=== PATIENT | female | born 1940 | race Caucasian/White ===

== ENCOUNTER 2016-03-23 17:30 | Inpatient (IN) | payer MEDICARE, OTHER ==
[~2016-03-23] VITALS: Ht 309.9 cm; Wt 48.0 kg
[~2016-03-23 17:30] MED LIST: ASPI-664 PO; CHOL500010 PO; CILO100T PO; CRES10 PO; ESCI10TA48 PO; ESOM40CA PO; FERR324T4 PO; HYDR100T7 PO; LEVO88TA44 PO; POLY17PO6 PO; RPGL.5T PO; SEVE800T7 PO; TERA2CAP PO
--- NOTE | 2016-03-23 18:33 | ERA ---
ER Documentation Chief Complaint Date/Time DATE: 03/23/16 TIME: 18:28 Chief Complaint HPI Patient is a 75-year-old female who was transferred here because of anemia that was found on routine lab work at the rehab facility. According to her outpatient physician she also had a chest x-ray that was done yesterday that demonstrated pneumonia. The patient herself does not have any current complaints. According to the physician she has chronic anemia which has slowly worsened. It is unclear why the patient has this chronic anemia according to her records. The patient does not have any chest pain, shortness of breath, dizziness, loss of consciousness, hematemesis, melena, or hematochezia. She denies any abdominal pain, vomiting, fever, coughing, congestion, rhinorrhea, sore throat, or otalgia. In the remainder of the systems are negative. ROS All systems reviewed and are negative except as per history of present illness. Medications Home Meds Reported Medications Aspirin* (Aspirin* EC) 81 Mg Tablet.dr, 81 MG PO DAILY, TAB 01/18/16 Discontinued Reported Medications Cholecalciferol (Vitamin D3) 5,000 Unit Tablet, 5000 UNIT PO DAILY, TAB 01/18/16 Sevelamer Carbonate* (Renvela*) 800 Mg Tablet, 0.8 GM PO WITH MEALS, TAB TAKE 1 TAB BID, FOR 1DAY 01/18/16 Polyethylene Glycol* (Miralax*) 17 Gm Powd.pack, 8.5 GM PO DAILY, #30 PACKET 01/18/16 Terazosin Hcl* (Terazosin Hcl*) 2 Mg Capsule, 2 MG PO DAILY, CAP 01/18/16 Hydralazine Hcl* (Hydralazine Hcl*) 100 Mg Tablet, 100 MG PO TID, #90 TAB 01/18/16 Esomeprazole Mag Trihydrate (Nexium) 40 Mg Capsule.dr, 40 MG PO DAILY, #30 CAP 01/18/16 Ferrous Sulfate (Ferrous Sulfate) 324 Mg Tablet.dr, 324 MG PO TID 01/18/16 Rosuvastatin Calcium* (Crestor*) 10 Mg Tablet, 10 MG PO DAILY, #30 TAB 01/18/16 Levothyroxine Sodium* (Synthroid*) 88 Mcg Tablet, 88 MCG PO BEFORE BREAKFAST, # 30 TAB 01/18/16 Escitalopram Oxalate* (Escitalopram Oxalate*) 10 Mg Tablet, 10 MG PO DAILY, #30 TAB 01/18/16 Repaglinide* (Prandin*) 0.5 Mg Tablet, 0.5 MG PO AC MEALS, TAB 01/18/16 Discontinued Scripts Cilostazol* (Cilostazol*) 100 Mg Tablet, 50 MG PO BID for 30 Days, TAB Prov:JESSIE SUMNER [employer] 02/23/16 Allergies Allergies: Coded Allergies: No Known Allergy (Verified , 03/23/16) PMhx/Soc History of Surgery: Yes (CABG) Anesthesia Reaction: No Hx Neurological Disorder: No Hx Respiratory Disorders: No Hx Cardiac Disorders: Yes (s/p CABG 15 yrs, bradycardia, HTN) Hx Psychiatric Problems: No Hx Miscellaneous Medical Probl: Yes (iron def anemia, AKD,CAD,hypothyroidism, jose,DM, htn,) Hx Alcohol Use: No Hx Substance Use: Yes Hx Tobacco Use: No FmHx Family History: coronary disease Physical Exam Vitals Vital Signs Date Time Temp Pulse Resp B/P Pulse Ox O2 Delivery O2 Flow Rate FiO2 03/23/16 18:40 99.3 92 12 138/62 99 Physical Exam Const: Well-developed well-nourished female sitting on the bed in no acute distress. She is notably pale. Head: Atraumatic normocephalic Eyes: Pale Conjunctiva ENT: Normal External Ears, Nose and Mouth. Neck: Full range of motion..~ No meningismus. Resp: Clear to auscultation bilaterally Cardio: Regular rate and rhythm, 3/6 systolic ejection murmur Abd: Soft, non tender, non distended. Normal bowel sounds Skin: No petechiae or rashes Back: No midline or flank tenderness Ext: No cyanosis, or edema Neur: Awake and alert, GCS equals 15 grossly nonfocal Psych: Normal Mood and Affect Result Diagram: 03/23/16 18503/23/16 185 Results 24 hrs Laboratory Tests Test 03/23/16 18:51 Activated Partial Thromboplast Time Pending Alanine Aminotransferase (ALT/SGPT) 30IU/L Albumin 3.5g/dl Albumin/Globulin Ratio 1.09 Alkaline Phosphatase 88IU/L Anion Gap 17 Aspartate Amino Transf (AST/SGOT) 27IU/L Basophils # Pending Basophils % Pending Blood Morphology Comment Blood Urea Nitrogen 37mg/dl Calcium Level 8.6mg/dl Carbon Dioxide Level 27mmol/L Chloride Level 99mmol/L Creatinine 2.25mg/dl Direct Bilirubin 0.00mg/dl Eosinophils # Pending Eosinophils % Pending Globulin 3.20g/dl Glucose Level 72mg/dl Hematocrit 22.5% Hemoglobin 7.6g/dl INR International Normalized Ratio 0.89 Indirect Bilirubin 0.1mg/dl Lymphocytes # Pending Lymphocytes % Pending Mean Corpuscular Hemoglobin 29.9pg Mean Corpuscular Hemoglobin Concent 33.7g/dl Mean Corpuscular Volume 88.6fl Mean Platelet Volume 6.7fl Monocytes # Pending Monocytes % Pending Neutrophils # Pending Neutrophils % Pending Nucleated Red Blood Cells # Pending Nucleated Red Blood Cells % Pending Platelet Count 07674^3/UL Potassium Level 3.8mmol/L Prothrombin Time 12.0Sec Prothrombin Time Ratio 0.9 Red Blood Count 2.5410^6/ul Red Cell Distribution Width 15.8% Sodium Level 139mmol/L Total Bilirubin 0.1mg/dl Total Protein 6.7g/dl Troponin I Pending White Blood Count 4.110^3/ul Current Medications Medications (Trade) Dose Ordered Sig/Jostin Route PRN Reason Start Time Stop Time Status Last Admin Dose Admin Sodium Chloride (NS) 250 ml @ 0 mls/hr Q0M ONCE IV 03/23/16 19:13 03/23/16 19:17 DC Procedures/MDM Medical decision making: This is a 75-year-old female who presents with known anemia. She is requiring a blood transfusion. The physician reports that she also has pneumonia. Given the pneumonia and need for blood transfusion I will attempt to get in touch with Dr. Johns who is the physician that was requested for admission and see if we can expedite her admission to the hospital. Departure Diagnosis: Primary Impression: Anemia Qualified Code: D64.9 - Anemia, unspecified type Additional Impressions: Pneumonia Qualified Code: J18.9 - Pneumonia due to infectious organism, unspecified laterality, unspecified part of lung Chronic kidney disease, stage III (moderate) Acute weakness ERVIN PEDERSEN Mar 23, 2016 18:33
[2016-03-23 19:10] LABS: ALBUMIN 3.5 g/dl (3.3-4.9)
[2016-03-23 19:11] LABS: POTASSIUM 3.8 mmol/L (3.5-5.1)
[2016-03-23 19:13] LABS: ALBUMIN/GLOBULIN RATIO 1.09; BILIRUBIN,INDIRECT 0.1 mg/dl (0-1.1); BILIRUBIN,TOTAL 0.1 mg/dl (0.2-1.3); CREATININE 2.25 mg/dl (0.44-1.00); TOTAL PROTEIN 6.7 g/dl (6.1-8.1)
[2016-03-23] MEDS ORDERED: SOD CHLORIDE 0.9% 250 ML IV ONE (19:13)
[2016-03-23 19:14] LABS: CALCIUM 8.6 mg/dl (8.4-10.2)
[2016-03-23 19:15] LABS: BASOPHILS % 0.5 % (0.0-2.0); EOSINOPHILS # 0.1 10^3/ul (0.0-0.5); EOSINOPHILS % 3.1 % (0.0-7.0); HEMATOCRIT 22.5 % (37.0-47.0); HEMOGLOBIN 7.6 g/dl (12.0-16.0); LYMPHOCYTES # 1.5 10^3/ul (0.8-2.9); LYMPHOCYTES % 35.7 % (15.0-51.0); MEAN CORPUSCULAR HEMOGLOBIN 29.9 pg (29.0-33.0); MEAN CORPUSCULAR HGB CONC 33.7 g/dl (32.0-37.0); MEAN CORPUSCULAR VOLUME 88.6 fl (82.0-101.0); MEAN PLATELET VOLUME 6.7 fl (7.4-10.4); MONOCYTE # 0.4 10^3/ul (0.3-0.9); MONOCYTES % 9.2 % (0.0-11.0); NEUTROPHIL # 2.1 10^3/ul (1.6-7.5); NEUTROPHILS % 51.5 % (39.0-77.0); PLATELET COUNT 143 10^3/UL (140-440); RED BLOOD COUNT 2.54 10^6/ul (4.20-5.40); RED CELL DISTRIBUTION WIDTH 15.8 % (11.5-14.5); UNCORRECTED WBC 4.1 10^3/ul (4.8-10.8); WHITE BLOOD COUNT 4.1 10^3/ul (4.8-10.8)
[2016-03-23 19:17] LABS: CONDITION 1; LH ANALYZER COMMENTS 1
--- NOTE | 2016-03-23 19:21 | RADRPT ---
PROCEDURE: Chest x-ray CLINICAL INDICATION: Shortness of breath TECHNIQUE: Chest single view COMPARISON: 02/14/2016 FINDINGS: There is interval placement of right IJ dialysis catheter with tip at the right atrial SVC junction. No pneumothorax is seen. Stable mild cardiomegaly and atherosclerotic aortic calcification is see n. There is post CABG changes. The pulmonary vessels are normal in caliber. Lungs are clear. Cos tophrenic angles are sharp. Bony thorax is unremarkable. IMPRESSION: 1. Interval placement right IJ dialysis catheter. 2. Stable cardiomegaly and an sclerotic aortic calcification. 3. No CHF or pneumonia. 4. Status post CABG RPTAT: HH .Piotr Grimes MD, MD Date Time Electronically viewed and signed by .Piotr Grimes MD, on 03/23/2016 19:21 .W/
[2016-03-23 19:22] LABS: INR 0.89; PT RATIO 0.9
[2016-03-23 19:23] LABS: PARTIAL THROMBOPLASTIN TIME 30.6 Sec (25.0-35.0)
[2016-03-23] MEDS ORDERED: CHOL100062 PO (19:23)
[2016-03-23] MEDS ORDERED: CILO100T PO (19:24)
[2016-03-23] MEDS ORDERED: ROSU20TA PO (19:24)
[2016-03-23] MEDS ORDERED: FER325 PO (19:25)
[2016-03-23] MEDS ORDERED: HYDR100T7 PO (19:26)
[2016-03-23 19:28] LABS: TROPONIN-I 0.177 ng/ml (0.00-0.12)
[2016-03-23] MEDS ORDERED: ONDANSETRON 4 MG INJ IV PRN (19:30)
[2016-03-23] MEDS ORDERED: ACETAMINOPHEN 325 MG TAB PO PRN (19:30)
[2016-03-23] MEDS ORDERED: LEVO88TA3 PO (19:31)
[2016-03-23] MEDS ORDERED: POLY17PO6 PO (19:32)
[2016-03-23] MEDS ORDERED: ESCI10TA PO (19:32)
[2016-03-23] MEDS ORDERED: ESOM40CA PO (19:33)
[2016-03-23] MEDS ORDERED: NEPH PO (19:34)
[2016-03-23] MEDS ORDERED: SEVE800T7 PO (19:35)
[2016-03-23] MEDS ORDERED: ACET325T33 PO (19:37)
[2016-03-23] MEDS ORDERED: VALS40TA2 PO (19:39)
[2016-03-23 19:41] LABS: OVALOCYTES 1+
[2016-03-23] MEDS ORDERED: GABA300C PO (19:41)
[2016-03-23] MEDS ORDERED: ZINC220T PO (19:41)
[2016-03-23 19:42] LABS: PLATELET ESTIMATE PLT APPEAR ADEQUATE
[2016-03-23] MEDS ORDERED: ASCO500C7 PO (19:42)
[2016-03-23] MEDS ORDERED: REPA0.5T3 PO (19:57)
--- NOTE | 2016-03-23 21:39 | CONS ---
Date/Time of Note Date/Time of Note DATE: 03/23/16 TIME: 21:39 Consultation Date/Type/Reason Admit Date/Time Social History Smoking Status: Unknown if ever smoked Exam/Review of Systems Vital Signs Vitals Vital Signs Date Time Temp Pulse Resp B/P Pulse Ox O2 Delivery O2 Flow Rate FiO2 03/23/16 20:10 99.3 88 12 115/62 97 Room Air Results Result Diagram: 03/23/16 1851 03/23/16 1851 Results 24 hrs Laboratory Tests Test 03/23/16 18:51 Activated Partial Thromboplast Time 30.6 Alanine Aminotransferase (ALT/SGPT) 30 Albumin 3.5 Albumin/Globulin Ratio 1.09 Alkaline Phosphatase 88 Anion Gap 17 H Aspartate Amino Transf (AST/SGOT) 27 Basophils # 0.0 Basophils % 0.5 Blood Morphology Comment Blood Urea Nitrogen 37 H Calcium Level 8.6 Carbon Dioxide Level 27 Chloride Level 99 Creatinine 2.25 H Differential Comment AUTO w/SCAN Direct Bilirubin 0.00 Eosinophils # 0.1 Eosinophils % 3.1 Globulin 3.20 Glucose Level 72 Hematocrit 22.5 L Hemoglobin 7.6 L INR International Normalized Ratio 0.89 Indirect Bilirubin 0.1 Lymphocytes # 1.5 Lymphocytes % 35.7 Mean Corpuscular Hemoglobin 29.9 Mean Corpuscular Hemoglobin Concent 33.7 Mean Corpuscular Volume 88.6 Mean Platelet Volume 6.7 L Monocytes # 0.4 Monocytes % 9.2 Neutrophils # 2.1 Neutrophils % 51.5 Nucleated Red Blood Cells # 0.0 Nucleated Red Blood Cells % 0.0 Ovalocytes 1+ Platelet Count 143 Platelet Estimate PLT APPEAR ADEQUATE Potassium Level 3.8 Prothrombin Time 12.0 L Prothrombin Time Ratio 0.9 Red Blood Count 2.54 L Red Cell Distribution Width 15.8 H Sodium Level 139 Total Bilirubin 0.1 L Total Protein 6.7 Troponin I 0.177 *H White Blood Count 4.1 #L FABY HORN MD Mar 23, 2016 21:39
[2016-03-24] VITALS (12 sets, daily range): BP systolic 161–177; BP diastolic 70–87; PULSE 66–82; RESP 18; TEMP 98.5; Ht 309.9 cm; Wt 48.0 kg
[2016-03-24] MEDS ORDERED: ACETAMINOPHEN 325 MG TAB PO PRN (08:30)
[2016-03-24] MEDS ORDERED: EPOETIN 10000 UNITS/1 ML INJ (ESRD) SC SCH (08:30)
[2016-03-24] MEDS ORDERED: VALSARTAN 80 MG TAB PO SCH (09:00)
--- NOTE | 2016-03-24 10:15 | CONS ---
Date/Time of Note Date/Time of Note DATE: 03/24/16 TIME: 10:15 Consultation Date/Type/Reason Admit Date/Time Initial Consult Date Exam/Review of Systems Vital Signs Vitals Vital Signs Date Time Temp Pulse Resp B/P Pulse Ox O2 Delivery O2 Flow Rate FiO2 03/24/16 05:37 98.7 83 20 144/57 100 Room Air Intake and Output 03/23/16 03/23/16 03/24/16 15:00 23:00 07:00 Intake Total 1160 ml Output Total 15 ml Balance 1145 ml Results Result Diagram: 03/23/16 1851 03/23/16 1851 Results 24 hrs Laboratory Tests Test 03/23/16 18:51 03/24/16 01:26 03/24/16 04:50 Activated Partial Thromboplast Time 30.6 Alanine Aminotransferase (ALT/SGPT) 30 Albumin 3.5 Albumin/Globulin Ratio 1.09 Alkaline Phosphatase 88 Anion Gap 17 H Aspartate Amino Transf (AST/SGOT) 27 Basophils # 0.0 Basophils % 0.5 Blood Morphology Comment Blood Urea Nitrogen 37 H Calcium Level 8.6 Carbon Dioxide Level 27 Chloride Level 99 Creatinine 2.25 H Differential Comment AUTO w/SCAN Direct Bilirubin 0.00 Eosinophils # 0.1 Eosinophils % 3.1 Globulin 3.20 Glucose Level 72 Hematocrit 22.5 L Hemoglobin 7.6 L INR International Normalized Ratio 0.89 Indirect Bilirubin 0.1 Lymphocytes # 1.5 Lymphocytes % 35.7 Mean Corpuscular Hemoglobin 29.9 Mean Corpuscular Hemoglobin Concent 33.7 Mean Corpuscular Volume 88.6 Mean Platelet Volume 6.7 L Monocytes # 0.4 Monocytes % 9.2 Neutrophils # 2.1 Neutrophils % 51.5 Nucleated Red Blood Cells # 0.0 Nucleated Red Blood Cells % 0.0 Ovalocytes 1+ Platelet Count 143 Platelet Estimate PLT APPEAR ADEQUATE Potassium Level 3.8 Prothrombin Time 12.0 L Prothrombin Time Ratio 0.9 Red Blood Count 2.54 L Red Cell Distribution Width 15.8 H Sodium Level 139 Total Bilirubin 0.1 L Total Protein 6.7 Troponin I 0.177 *H White Blood Count 4.1 #L Bedside Glucose 94 76 Medications Medications Current Medications Acetaminophen (Tylenol Tab) 650 mg Q4H PRN PO MILD PAIN LEVEL 1-4; Start at 08:30 Ascorbic Acid (Vitamin C) 500 mg DAILY PO ; Start 03/24/16 at 09:00; Status UNV Aspirin (Halfprin) 81 mg DAILY PO ; Start 03/24/16 at 09:00; Status UNV Cholecalciferol (Vitamin D) 1,000 unit DAILY PO ; Start 03/24/16 at 09:00; Status UNV Cilostazol (Pletal) 100 mg Q12 PO ; Start 03/24/16 at 09:00; Status UNV Escitalopram Oxalate (Lexapro) 10 mg DAILY PO ; Start 03/24/16 at 09:00; Status UNV Ferrous Sulfate (Ferrous Sulfate (Ec)) 325 mg DAILY PO ; Start 03/24/16 at 09:00 ; Status UNV Multivit/Ca Carb/ B Cmplx/FA/Prenat (Billie-Roge) 1 tab DAILY PO ; Start 03/24/16 at 09:00; Status UNV Polyethylene Glycol (Miralax) 17 gm DAILY PO ; Start 03/24/16 at 09:00; Status UNV Valsartan (Diovan) 40 mg BID PO ; Start 03/24/16 at 09:00; Status UNV Zinc Sulfate (Zinc Sulfate) 220 mg DAILY PO ; Start 03/24/16 at 09:00; Status UNV Pantoprazole (Protonix Tab) 40 mg DAILY@06 PO ; Start 03/25/16 at 06:00 Atorvastatin Calcium (Lipitor) 80 mg DAILY@21 PO ; Start 03/24/16 at 21:00 FABY HORN MD Mar 24, 2016 10:15
[2016-03-24] MEDS ORDERED: LEVOFLOXACIN 500MG/D5W (PMX) 100 ML IVPB ONE (10:30)
[2016-03-24] MEDS ORDERED: ACETAMINOPHEN 325 MG TAB PO STA (11:02)
[2016-03-24 11:35] LABS: POTASSIUM 3.6 mmol/L (3.5-5.1)
[2016-03-24 11:37] LABS: CREATININE 2.2 mg/dl (0.44-1.00)
[2016-03-24 11:38] LABS: CALCIUM 8.5 mg/dl (8.4-10.2)
[2016-03-24 11:40] LABS: BASOPHILS % 0.8 % (0.0-2.0); EOSINOPHILS # 0.2 10^3/ul (0.0-0.5); EOSINOPHILS % 4.4 % (0.0-7.0); HEMOGLOBIN 7.5 g/dl (12.0-16.0); LYMPHOCYTES # 1.8 10^3/ul (0.8-2.9); LYMPHOCYTES % 40.8 % (15.0-51.0); MEAN CORPUSCULAR HGB CONC 33.9 g/dl (32.0-37.0); MEAN CORPUSCULAR VOLUME 88.3 fl (82.0-101.0); MEAN PLATELET VOLUME 7.3 fl (7.4-10.4); MONOCYTE # 0.3 10^3/ul (0.3-0.9); PLATELET COUNT 133 10^3/UL (140-440); RED CELL DISTRIBUTION WIDTH 15.6 % (11.5-14.5); UNCORRECTED WBC 4.3 10^3/ul (4.8-10.8); WHITE BLOOD COUNT 4.3 10^3/ul (4.8-10.8)
[2016-03-24 11:41] LABS: CONDITION 1; LH ANALYZER COMMENTS 1
[2016-03-24] MEDS: SEVELAMER CARBONATE 0.8 GM PKT PO SCH ×2 (12:00→17:15)
--- NOTE | 2016-03-24 13:00 | HP ---
DATE OF ADMISSION: 03/23/2016 CHIEF COMPLAINT: Anemia. HISTORY OF PRESENT ILLNESS: This is a 75-year-old female with a past medical history of end-stage r enal disease, a history of peripheral vascular disease, status post right lower extremity bypass, a history of cardiomyopathy, a history of coronary artery disease, status post CABG, a history of arrh ythmia, a history of diabetes, who presents to [facility] for anemia. The patient recently underwent a fem-pop at [facility] by Dr. Chi. The patient was discharged to a [facility], where she has been receiving rehabilitation. The patient was then noted on rou christy labs to have a severe anemia and was transferred to [facility] for evaluation . Upon arrival the patient's hemoglobin level was noted to be 7.6. She was seen by Dr. Juarez, nutrition specialist, and type and crossed 2 units of PRBC to undergo transfusion. The patient herself is st able. She continues to have pain in her right lower extremity, which is controlled with pain medica tion. The patient does admit to having a recent fever and was diagnosed with a possible pneumonia a t her fdc facility, where she has been on Levaquin. The patient currently is without an y chest pain, cough, nausea or vomiting. PAST MEDICAL HISTORY: As stated above, a history of end-stage renal disease, diabetes, hypertension , cardiomyopathy, hypothyroidism, anemia, and coronary artery disease. PAST SURGICAL HISTORY: Status post CABG, status post right lower extremity fem-pop. MEDICATIONS: The patient's medications have been reviewed and reconciled. FAMILY HISTORY: No family history of kidney disease or heart disease. SOCIAL HISTORY: She does not smoke, drink or do drugs. ALLERGIES: NO KNOWN DRUG ALLERGIES. REVIEW OF SYSTEMS: A 14-point review of systems was conducted. Pertinent positives as stated in th e HPI, otherwise negative. PHYSICAL EXAMINATION: VITAL SIGNS: Blood pressure is 144/57, respirations 20, pulse 83, temperature 98.7. HEENT: Head is normocephalic. NECK: Supple. HEART: Regular rate. LUNGS: Show diminished breath sounds at the base. ABDOMEN: Soft, nontender to palpation. No rebound or guarding. EXTREMITIES: Negative for clubbing or cyanosis. No edema on the left leg. Right leg the patient moreira s a dressing that is clean, dry and intact. NEUROLOGIC: No focal deficits. LABORATORY DATA: Shows sodium 139, potassium 3.8, chloride 99, BUN 37, creatinine 2.25. Troponin 0 .177. White count 4.1, hemoglobin 7.6, hematocrit 22.5, platelet count 143. ASSESSMENT AND PLAN: This is a 75-year-old female who presents with: 1. Severe anemia. Etiology is likely secondary to end-stage renal disease. There is no evidence o f a GI bleed at this time. No hemoptysis, hemetemesis or hematochezia. Plan at this point is to typ e and cross and transfuse 2 units of PRBC. Will monitor H and H levels closely. Will give Epogen fo llowing dialysis. 2. End-stage renal disease. The patient is on dialysis Sunday, Sunday and Sunday. Plan for abhay lysis today. 3. Mineral bone disorder. Will monitor calcium and phosphorus levels. No need for phosphate binde rs at this time. 4. Peripheral vascular disease. The patient is status post right lower extremity fem-pop. Will co ntinue the current treatment plan. Continue local wound care. Follow up with vascular surgery in t outpatient setting. Continue Pletal for pain control and monitor. 5. Hypothyroidism. Will continue Synthroid. 6. Elevated troponin. Unclear if this may be secondary to non-STEMI type 2. The patient has no act rich chest pain. Will monitor closely. Continue medical management and follow up with cardiology. 7. Hypertension. Continue the current blood pressure regimen. 8. Depression. Continue Lexapro. 9. Diabetes. Continue Accu-Cheks and insulin sliding scale. 10. Pneumonia. The patient was diagnosed at a skilled nurse facility. Currently on Levaquin. Tylor l continue. Repeat chest x-ray shows no active infiltrates. 11. Gastrointestinal and deep vein thrombosis prophylaxis. The patient will be on sequential leg s queezers and a PPI. Please note, I discussed the case with the patient and the patient's daughter. The patient is curre ntly FULL CODE. Dictated By: BRANDI ERICKSON DO NR/NTS Conf#: [id number] DID#: [id number]
[2016-03-24] MEDS ORDERED: GLUCOSE GEL 15 GRAM TUBE PO PRN ×2 (13:30)
[2016-03-24] MEDS ORDERED: DEXTROSE 50% 50 ML SYRINGE IV PRN ×2 (13:30)
[2016-03-24] MEDS ORDERED: GLUCAGON 1 MG INJ IM PRN (13:30)
[2016-03-24] MEDS ORDERED: GLUCOSE GEL 15 GRAM TUBE BUCCAL PRN (13:30)
--- NOTE | 2016-03-24 16:01 | CONS ---
DATE OF ADMISSION: 03/23/2016 DATE OF CONSULTATION: 03/24/2016 TYPE OF CONSULTATION: Infectious Disease. REASON FOR CONSULTATION: Antibiotic management. HISTORY OF PRESENT ILLNESS: Ms. Clark is a 75-year-old female with numerous problems who comes i n with anemia. Her past problems include: 1. End-stage renal disease. 2. Peripheral vascular disease status post right lower extremity bypass. 3. Adult-onset diabetes mellitus. 4. History of cardiomyopathy. 5. Coronary artery disease, status post coronary bypass graft. 6. History of arrhythmia. 7. Hypothyroidism. The patient recently underwent a femoral popliteal bypass at [facility] Dr. Chi. She was discharged to [facility] facility. It was noted that she had severe anem ia and was transferred to [facility] for evaluation. Her hemoglobin was 7.6. She was seen by Dr. Juarez and 2 units of packed red blood cells were ordered for transfusion. She continues to have right lower extremity pain controlled with medication. She had a recent fever and was diag nosed with possible pneumonia at the [facility] where she has been on Levaquin. As no felipa on admission, her white count was 4.1, H and H of 7.6 and 22.5, platelet count of 143,000. BUN and creatinine 37/2.25. PAST SURGICAL HISTORY: Status post coronary bypass graft and status post right lower extremity femo ral popliteal graft. FAMILY HISTORY: Noncontributory. SOCIAL HISTORY: She does not smoke, drink or abuse drugs. ALLERGIES: NONE TO PENICILLIN, SULFA OR FOODS. MEDICATIONS: Per chart. REVIEW OF SYSTEMS: As per HPI. PHYSICAL EXAMINATION: GENERAL: The patient is a well-developed, well-nourished female who appears chronically ill, in no acute distress. VITAL SIGNS: Stable. She is afebrile. SKIN: Without generalized rash. HEENT: Within normal limits. NECK: Supple. LYMPH NODES: None palpable. CHEST: Decreased breath sounds at the bases. HEART: Without murmur or gallop. ABDOMEN: Soft, nontender, without organosplenomegaly or masses. EXTREMITIES: Right leg has a dressing that is clean, dry. No exudate. RECTAL AND GENITAL: Deferred. NEUROLOGIC: No focal neurological abnormalities. IMPRESSION AND PLAN: 1. The patient has severe anemia. This may be secondary to end-stage renal disease. She has no ev idence of GI bleed. She was placed on Epogen. She is also getting dialysis. She gets dialyzed Sun, Sunday and Sunday. 2. She has peripheral vascular disease. Follow up with vascular surgery. 3. She has an elevated troponin secondary to non-ST elevation myocardial infarction type 2. At the present time, she was on Levaquin, which was discontinued. There is no clear evidence of infection at this point. 4. Her chest x-ray: She has interval placement of right IJ dialysis catheter, stable cardiomyopathy , no CHF or pneumonia, status post coronary artery bypass graft. I will dictate my findings to Dr. Johns. Dr. Juarez, thank you for this consultation. Dictated By: NEHA ROSS MD, JD/ANA Conf#: [id number] DID#: [id number]
[2016-03-24] MEDS: FERROUS SULFATE (EC) 325 MG TAB PO SCH (17:13)
[2016-03-24] MEDS: POLYETHYLENE GLYCOL 17 GM PACKET PO SCH (17:13)
[2016-03-24] MEDS: ESCITALOPRAM 10 MG TAB PO SCH (17:14)
[2016-03-24] MEDS: CILOSTAZOL 100 MG TAB PO SCH ×2 (17:14→22:44)
[2016-03-24] MEDS: REPAGLINIDE 1 MG TAB PO SCH ×2 (17:14→17:16)
[2016-03-24] MEDS: CHOLECALCIFEROL 1,000 UNIT TAB PO SCH (17:14)
[2016-03-24] MEDS: ASCORBIC ACID 500 MG TAB PO SCH (17:14)
[2016-03-24] MEDS: ASPIRIN (EC) 81 MG TAB PO SCH (17:15)
[2016-03-24] MEDS: ZINC SULFATE 220 MG CAP PO SCH (17:15)
[2016-03-24] MEDS: MULTIVIT/CA CARB/B CMPLX/FA TAB PO SCH (17:15)
[2016-03-24] MEDS ORDERED: hydrALAzine 20 MG INJ IV PRN (19:00)
[2016-03-24 19:43] LABS: BASOPHILS % 0.5 % (0.0-2.0); EOSINOPHILS # 0.2 10^3/ul (0.0-0.5); EOSINOPHILS % 3.9 % (0.0-7.0); HEMATOCRIT 28.6 % (37.0-47.0); HEMOGLOBIN 9.8 g/dl (12.0-16.0); LYMPHOCYTES # 1.6 10^3/ul (0.8-2.9); LYMPHOCYTES % 30.9 % (15.0-51.0); MEAN CORPUSCULAR HEMOGLOBIN 30.1 pg (29.0-33.0); MEAN CORPUSCULAR HGB CONC 34.1 g/dl (32.0-37.0); MEAN CORPUSCULAR VOLUME 88.1 fl (82.0-101.0); MEAN PLATELET VOLUME 6.9 fl (7.4-10.4); MONOCYTE # 0.5 10^3/ul (0.3-0.9); MONOCYTES % 9.5 % (0.0-11.0); NEUTROPHIL # 2.8 10^3/ul (1.6-7.5); NEUTROPHILS % 55.2 % (39.0-77.0); PLATELET COUNT 136 10^3/UL (140-440); RED BLOOD COUNT 3.24 10^6/ul (4.20-5.40); RED CELL DISTRIBUTION WIDTH 15.5 % (11.5-14.5); UNCORRECTED WBC 5.1 10^3/ul (4.8-10.8); WHITE BLOOD COUNT 5.1 10^3/ul (4.8-10.8)
[2016-03-24 19:46] LABS: CONDITION 1; LH ANALYZER COMMENTS 1
[2016-03-24] MEDS ORDERED: ATORVASTATIN 80 MG TAB PO SCH (21:00)
[2016-03-24] MEDS: ONDANSETRON 4 MG INJ IV PRN (22:13)
[2016-03-24] MEDS: VALSARTAN 80 MG TAB PO SCH (22:44)
[2016-03-25] VITALS (9 sets, daily range): BP systolic 105–171; BP diastolic 54–78; PULSE 60–85; RESP 16–19
[2016-03-25] MEDS: ACETAMINOPHEN 325 MG TAB PO PRN ×2 (00:08→15:36)
--- NOTE | 2016-03-25 03:58 | CONS ---
DATE OF ADMISSION: 03/23/2016 DATE OF CONSULTATION: 03/24/2016 TYPE OF CONSULTATION: Cardiology. REQUESTING PHYSICIAN: Brandi Erickson DO HISTORY OF PRESENT ILLNESS: Ms. Clark is a very pleasant 75-year-old female well known to myself as a primary office patient and multiple hospital admissions with a history of end-stage renal dise ase on hemodialysis recently, peripheral vascular disease status post recent right lower extremity p eripheral bypass at [place], coronary artery disease, status post coronary artery bypass grafting, c ardiac arrhythmia with episodes of bradycardia, diabetes mellitus, hypertension, cardiomyopathy, dec reased left ventricular ejection fraction, who was transferred to Hospital due to worsening an emia. Upon arrival, temperature 98.3, blood pressure 128/62, pulse 92, respiratory 12 and 99%. The patient's labs revealed a white count 4.1, hemoglobin 7.6, platelet count 143. Sodium 139, potassi um 3.8, creatinine 2.25, BUN 37. AST 27, ALT 30. Troponin positive 0.177, INR 0.89. The patient underwent a chest x-ray revealing stable cardiomegaly, no congestive heart failure, status post CABG . The patient's last electrocardiogram revealed sinus rhythm, rate of 91 with a right bundle block , secondary polarization abnormalities, right axis deviation, left posterior fascicular block and amadou rderline inferior Q's and associated PVCs. The patient subsequently has been admitted to the hospital and is to undergo transfusion of packed R BCs. The patient at this time denies chest pain, shortness of breath or complaints of leg pain and pain at her leg wound. PAST MEDICAL HISTORY: As above in HPI. The patient's most recent 2D echo 02/21/2016 revealed an E F of 35%, with an akinetic inferior base and inferior mid segments, mild mitral and aortic valve reg urgitation and moderate tricuspid regurgitation with PA pressure of 56. In addition, the patient moreira d a stress test 02/19/2016 revealing a large nonreversible perfusion defects, moderate hypokinesis, left ventricle, EF of 26%. MEDICATIONS CURRENTLY IN HOSPITAL: 1. Synthroid 88 mcg daily. 2. Protonix 40 mg daily. 3. Lipitor 80 mg at bedtime. 4. Renagel. 5. Prandin. 6. Tylenol. 7. Vitamin C. 8. Aspirin 81 mg daily. 9. Vitamin D. 10. Pletal 100 mg q. 12. 11. Lexapro. 12. Ferrous sulfate. 13. Billie-Roge. 14. MiraLax. 15. Diovan 40 mg p.o. b.i.d. 16. Zinc sulfate 220 mg daily. ALLERGIES: NO KNOWN DRUG ALLERGIES. SOCIAL HISTORY: No tobacco, ETOH or illicit drug use. FAMILY HISTORY: No history of cardiac or early CAD. REVIEW OF SYSTEMS: As above in HPI. CONSTITUTIONAL: No fevers, chills. PULMONARY: Shortness of breath. CARDIOVASCULAR: Positive troponin. GASTROINTESTINAL: No vomiting. GENITOURINARY: End-stage renal disease. PSYCHIATRIC: Positive psychiatric medications. NEUROLOGIC: No documented CVA. PHYSICAL EXAMINATION VITAL SIGNS: Temperature 97.6, blood pressure markedly elevated at 175/74, pulse 76, respiratory ra te 18, saturating 100%. GENERAL: The patient is sleeping, but easily arousable. NECK: JVP approximately 9 cm of water. CHEST: Bibasilar crackles. HEART: Regular rate and rhythm. Normal S1, S2, I/ systolic murmur, nondisplaced PMI. ABDOMEN: Positive bowel sounds, soft. EXTREMITIES: Right lower extremity covered by dressing, status post peripheral bypass surgery with right foot ulcer healing. LABORATORY DATA: As above in HPI, most recently from today, white count 4.3, hemoglobin 7.5, platel et count 133. Sodium 141, potassium 3.6, creatinine 2.2, BUN of 41. INR 0.89. IMAGING STUDIES: As above in HPI. No further imaging studies for my review at this time. ELECTROCARDIOGRAM: As above in HPI. No further electrocardiograms for my review at this time. IMPRESSION: 1. Positive troponin in the setting of renal failure and known cardiomyopathy. 2. Cardiomyopathy with decreased left ventricular ejection fraction approximately 30% to 35% by ech o and stress 02/2016. 3. History of prior myocardial infarction by stress 02/2016. 4. Anemia, moderate to severe. 5. End-stage renal disease on hemodialysis. 6. Hypertension, uncontrolled. 7. Dyslipidemia. 8. Hypothyroid. 9. Peripheral arterial disease, status post peripheral bypass. 10. Lower extremity ulceration. RECOMMENDATIONS: 1. At this time, would maintain the patient on telemetry monitoring to follow rhythm and rate close ly. 2. Check serial EKGs to assess for any significant ongoing changes. EKG in morning, EKG for any co mplaints of chest pain or change in rhythm. 3. We will continue patient's aspirin for prophylaxis against further cardiovascular events and wou ld continue to transfuse the patient packed RBCs to increase oxygen carrying capacity in the setting of renal failure. 4. Increase the patient's Diovan to improve overall systolic blood pressure control. 5. Continue the patient's Pletal at this time in the setting of peripheral arterial disease, status post bypass surgery. 6. Hemodialysis for volume removal. 7. Continue the patient's current statin and adjust it according to her fasting lipid panels checke d. 8. Check the patient's TSH to assess the patient's current thyroid state. Thank you for allowing me to take part in the care of this patient. I will continue to follow very closely with you with recommendations to be made as the patient progresses through her inpatient hos pital course Dictated By: YI WATSON/ANA Conf#: [id number] DID#: [id number] CC: BRANDI ERICKSON DO;*EndCC*
[2016-03-25] MEDS ORDERED: PANTOPRAZOLE (EC) 40 MG TAB PO SCH (06:00)
[2016-03-25] MEDS ORDERED: LEVOTHYROXINE 88 MCG TAB PO SCH (07:00)
[2016-03-25 08:01] LABS: BASOPHILS % 0.6 % (0.0-2.0); EOSINOPHILS # 0.2 10^3/ul (0.0-0.5); EOSINOPHILS % 5.7 % (0.0-7.0); HEMATOCRIT 29.9 % (37.0-47.0); HEMOGLOBIN 10.3 g/dl (12.0-16.0); LYMPHOCYTES # 1.4 10^3/ul (0.8-2.9); LYMPHOCYTES % 32.2 % (15.0-51.0); MEAN CORPUSCULAR HEMOGLOBIN 29.9 pg (29.0-33.0); MEAN CORPUSCULAR HGB CONC 34.4 g/dl (32.0-37.0); MEAN CORPUSCULAR VOLUME 87.1 fl (82.0-101.0); MEAN PLATELET VOLUME 7.1 fl (7.4-10.4); MONOCYTE # 0.3 10^3/ul (0.3-0.9); MONOCYTES % 7.7 % (0.0-11.0); NEUTROPHIL # 2.4 10^3/ul (1.6-7.5); NEUTROPHILS % 53.8 % (39.0-77.0); PLATELET COUNT 123 10^3/UL (140-440); RED BLOOD COUNT 3.44 10^6/ul (4.20-5.40); RED CELL DISTRIBUTION WIDTH 15.5 % (11.5-14.5); UNCORRECTED WBC 4.4 10^3/ul (4.8-10.8); WHITE BLOOD COUNT 4.4 10^3/ul (4.8-10.8)
[2016-03-25 08:12] LABS: CONDITION 1; LH ANALYZER COMMENTS 1
[2016-03-25 08:17] LABS: POTASSIUM 3.4 mmol/L (3.5-5.1)
[2016-03-25 08:20] LABS: CHOL/HDL RATIO 3.3 RATIO; CREATININE 1.61 mg/dl (0.44-1.00); PHOSPHORUS 3.7 mg/dl (2.5-4.9)
[2016-03-25 08:21] LABS: CALCIUM 8.1 mg/dl (8.4-10.2); MAGNESIUM 1.9 mg/dl (1.7-2.5)
[2016-03-25] MEDS: REPAGLINIDE 1 MG TAB PO SCH ×2 (08:33→13:13)
[2016-03-25] MEDS: ASCORBIC ACID 500 MG TAB PO SCH (08:33)
[2016-03-25] MEDS: SEVELAMER CARBONATE 0.8 GM PKT PO SCH ×2 (08:33→13:13)
[2016-03-25] MEDS: MULTIVIT/CA CARB/B CMPLX/FA TAB PO SCH (08:33)
[2016-03-25] MEDS: ESCITALOPRAM 10 MG TAB PO SCH (08:33)
[2016-03-25] MEDS: VALSARTAN 80 MG TAB PO SCH (08:33)
[2016-03-25] MEDS: CILOSTAZOL 100 MG TAB PO SCH (08:33)
[2016-03-25] MEDS: ASPIRIN (EC) 81 MG TAB PO SCH (08:33)
[2016-03-25] MEDS: FERROUS SULFATE (EC) 325 MG TAB PO SCH (08:34)
[2016-03-25] MEDS: CHOLECALCIFEROL 1,000 UNIT TAB PO SCH (08:34)
[2016-03-25] MEDS: POLYETHYLENE GLYCOL 17 GM PACKET PO SCH (08:34)
[2016-03-25] MEDS: ZINC SULFATE 220 MG CAP PO SCH (08:34)
[2016-03-25] MEDS ORDERED: POTASSIUM CHLORIDE (SR) 20 MEQ TAB PO STA (08:38)
[2016-03-25] MEDS ORDERED: LEVOFLOXACIN 500 MG TAB PO SCH (09:00)
--- NOTE | 2016-03-25 10:38 | CONS ---
Date/Time of Note Date/Time of Note DATE: 03/25/16 TIME: 10:37 Assessment/Plan Assessment/Plan Chief Complaint/Hosp Course ID PROGRESS NOTE TOTAL ABX DAY # => Levaquin-> DC"d 24H INTERVAL SUMMARY * No fevers, stable, chart reviewed PHYSICAL EXAMINATION: GENERAL: 75 yo F HEENT: Unremarkable NECK: Supple, trachea midline. CHEST: Rise symmetrical without dyspnea HEART: RRR ABDOMEN: Soft EXTREMITIES: Warm ID ASSESSMENT: 75 yo F w/ IMPRESSION AND PLAN per Dr. Mesa consult: 1. The patient has severe anemia. This may be secondary to end-stage renal disease. She has no evidence of GI bleed. She was placed on Epogen. She is also getting dialysis. She gets dialyzed Sunday, Sunday and Sunday. 2. She has peripheral vascular disease. Follow up with vascular surgery. 3. She has an elevated troponin secondary to non-ST elevation myocardial infarction type 2 4. Her chest x-ray: She has interval placement of right IJ dialysis catheter, stable cardiomyopathy, no CHF or pneumonia, status post coronary artery bypass graft. CURRENT ABX: Levaquin s/p ID RECOMMENDATIONS: . At the present time, she was on Levaquin, which was discontinued. There is no clear evidence of infection at this point. Problems: Consultation Date/Type/Reason Admit Date/Time Mar 23, 2016 at 19:22 Initial Consult Date Exam/Review of Systems Vital Signs Vitals Vital Signs Date Time Temp Pulse Resp B/P Pulse Ox O2 Delivery O2 Flow Rate FiO2 03/25/16 08:03 74 03/25/16 07:51 98.3 17 124/58 94 03/25/16 04:00 Room Air Intake and Output 03/24/16 03/24/16 03/25/16 14:59 22:59 06:59 Intake Total 600 ml 360 ml Output Total 2300 ml 650 ml Balance -1700 ml -290 ml Results Result Diagram: 03/25/16 0658 03/25/16 0658 Results 24 hrs Laboratory Tests Test 03/24/16 15:17 03/24/16 19:20 03/24/16 20:55 03/25/16 05:50 Bedside Glucose 102 162 72 Basophils # 0.0 Basophils % 0.5 Blood Morphology Comment Eosinophils # 0.2 Eosinophils % 3.9 Hematocrit 28.6 #L Hemoglobin 9.8 #L Lymphocytes # 1.6 Lymphocytes % 30.9 Mean Corpuscular Hemoglobin 30.1 Mean Corpuscular Hemoglobin Concent 34.1 Mean Corpuscular Volume 88.1 Mean Platelet Volume 6.9 L Monocytes # 0.5 Monocytes % 9.5 Neutrophils # 2.8 Neutrophils % 55.2 Nucleated Red Blood Cells # 0.0 Nucleated Red Blood Cells % 0.0 Platelet Count 136 L Red Blood Count 3.24 #L Red Cell Distribution Width 15.5 H White Blood Count 5.1 Test 03/25/16 06:58 Anion Gap 13 Basophils # 0.0 Basophils % 0.6 Blood Morphology Comment Blood Urea Nitrogen 24 #H Calcium Level 8.1 L Carbon Dioxide Level 30 Chloride Level 102 Cholesterol Level 107 Cholesterol/HDL Ratio 3.3 Creatinine 1.61 H Eosinophils # 0.2 Eosinophils % 5.7 Glucose Level 87 HDL Cholesterol 32 L Hematocrit 29.9 L Hemoglobin 10.3 L LDL Cholesterol, Calculated 50 Lymphocytes # 1.4 Lymphocytes % 32.2 Magnesium Level 1.9 Mean Corpuscular Hemoglobin 29.9 Mean Corpuscular Hemoglobin Concent 34.4 Mean Corpuscular Volume 87.1 Mean Platelet Volume 7.1 L Monocytes # 0.3 Monocytes % 7.7 Neutrophils # 2.4 Neutrophils % 53.8 Nucleated Red Blood Cells # 0.0 Nucleated Red Blood Cells % 0.0 Phosphorus Level 3.7 Platelet Count 123 L Potassium Level 3.4 L Red Blood Count 3.44 L Red Cell Distribution Width 15.5 H Sodium Level 142 Triglycerides Level 126 White Blood Count 4.4 L Medications Medications Current Medications Ascorbic Acid (Vitamin C) 500 mg DAILY PO Last administered on 03/25/16 08:33 ; Admin Dose 500 MG; Start 03/24/16 at 09:00 Aspirin (Halfprin) 81 mg DAILY PO Last administered on 03/25/16 08:33; Admin Dose 81 MG; Start 03/24/16 at 09:00 Cholecalciferol (Vitamin D) 1,000 unit DAILY PO Last administered on 03/25/16 08:34; Admin Dose 1,000 UNIT; Start 03/24/16 at 09:00 Cilostazol (Pletal) 100 mg Q12 PO Last administered on 03/25/16 08:33; Admin Dose 100 MG; Start 03/24/16 at 09:00 Escitalopram Oxalate (Lexapro) 10 mg DAILY PO Last administered on 03/25/16 08 :33; Admin Dose 10 MG; Start 03/24/16 at 09:00 Ferrous Sulfate (Ferrous Sulfate (Ec)) 325 mg DAILY PO Last administered on 08:34; Admin Dose 325 MG; Start 03/24/16 at 09:00 Multivit/Ca Carb/ B Cmplx/FA/Prenat (Billie-Roge) 1 tab DAILY PO Last administered on 03/25/16 08:33; Admin Dose 1 TAB; Start 03/24/16 at 09:00 Polyethylene Glycol (Miralax) 17 gm DAILY PO Last administered on 03/25/16 08: 34; Admin Dose 17 GM; Start 03/24/16 at 09:00 Zinc Sulfate (Zinc Sulfate) 220 mg DAILY PO Last administered on 03/25/16 08: 34; Admin Dose 220 MG; Start 03/24/16 at 09:00 Pantoprazole (Protonix Tab) 40 mg DAILY@06 PO Last administered on 03/25/16 05 :54; Admin Dose 40 MG; Start 03/25/16 at 06:00 Atorvastatin Calcium (Lipitor) 80 mg DAILY@21 PO Last administered on 22:45; Admin Dose 80 MG; Start 03/24/16 at 21:00 Acetaminophen (Tylenol Tab) 650 mg Q4 PRN PO PAIN Last administered on 00:08; Admin Dose 650 MG; Start 03/24/16 at 10:30 Miscellaneous Information 1 ea NOTE XX ; Start 03/24/16 at 13:30 Glucose (Glutose) 15 gm Q15M PRN PO DECREASED GLUCOSE; Start 03/24/16 at 13:30 Glucose (Glutose) 22.5 gm Q15M PRN PO DECREASED GLUCOSE; Start 03/24/16 at 13: 30 Dextrose (D50w Syringe) 25 ml Q15M PRN IV DECREASED GLUCOSE; Start 03/24/16 at 13:30 Dextrose (D50w Syringe) 50 ml Q15M PRN IV DECREASED GLUCOSE; Start 03/24/16 at 13:30 Glucagon (Glucagen) 1 mg Q15M PRN IM DECREASED GLUCOSE; Start 03/24/16 at 13:30 Glucose (Glutose) 15 gm Q15M PRN BUCCAL DECREASED GLUCOSE; Start 03/24/16 at 13 :30 Valsartan (Diovan) 80 mg BID PO Last administered on 03/25/16 08:33; Admin Dose 80 MG; Start 03/24/16 at 21:00 Hydralazine HCl (Apresoline) 10 mg Q4H PRN IV SBP>170; Start 03/24/16 at 19:00 Ondansetron HCl (Zofran Inj) 4 mg Q4H PRN IV NAUSEA AND/OR VOMITING Last administered on 03/24/16 22:13; Admin Dose 4 MG; Start 03/24/16 at 21:30 Levofloxacin (Levaquin) 500 mg Q48H PO Last administered on 03/25/16 10:30; Admin Dose 500 MG; Start 03/25/16 at 09:00 QUINN SINGH NP Mar 25, 2016 10:37
--- NOTE | 2016-03-25 10:49 | DS ---
DATE OF ADMISSION: 03/23/2016 DATE OF DISCHARGE: HOSPITAL COURSE: This is a 75-year-old female with a past medical history of chronic kidney disease stage IV/V with acute kidney injury, possible progression to end-stage renal disease on hemodialysi s in outpatient setting, history of peripheral vascular disease status post right lower extremity fe m-pop, history of cardiomyopathy, coronary artery disease, history of coronary artery bypass graftin g, arrhythmia, diabetes, who presented to [facility] for severe anemia. The patie nt was noted at her outpatient dialysis center to have a hemoglobin of 6.5. As a result, she was br ought into the emergency room and subsequently admitted to telemetry. The patient received 2 units of PRBC, was seen by receiver dispatcher, Dr. Juarez who agreed with blood transfusion and recommended t o continue Epogen in outpatient setting. The patient also noted to have possible bronchitis in outp atient setting, was placed on Levaquin, was seen by infectious disease specialist, Dr. Mesa, and p er Dr. Mesa recommended to continue medical management for bronchitis which has clinically improve d with antibiotic therapy. The patient also had a slight elevation in troponin, was seen by cardiol ogist, Dr. Benson. This was felt to be possibly due to ischemic demand due to severe anemia. At t his point, the patient is chest pain free and has been clinically stable, and per Cardiology, no fur ther intervention is needed. The patient's other medical problems including peripheral vascular dis ease, hypothyroidism, depression, diabetes have been stable during the hospital course. Currently, at this time, the patient is stable, will be discharged back to her assisted facility where s he will continue care. FINAL DIAGNOSES: 1. Severe anemia, status post blood transfusion with no evidence of gastrointestinal bleed. 2. End-stage renal disease. 3. Mineral bone disorder. 4. Peripheral vascular disease, status post recent fem-pop. 5. Hypothyroidism. 6. Elevated troponin likely secondary to demand ischemia. 7. Hypertension, improved. 8. Depression. 9. Diabetes, will continue Accu-Checks on sliding scale. 10. Bronchitis. The patient is completing a course of Levaquin, which we will continue for 5 more days in outpatient setting. 11. Mild hypokalemia. The patient will be repleted with potassium chloride 40 mEq p.o. x1. FINAL MEDICATIONS: See reconciliation list. Please note at time of discharge, the patient is stable, in no acute distress. Dictated By: BRANDI CHANEY/ANA Conf#: [id number] DID#: [id number]
--- NOTE | 2016-03-25 14:03 | CONS ---
Date/Time of Note Date/Time of Note DATE: 03/25/16 TIME: 13:57 Assessment/Plan Assessment/Plan Chief Complaint/Hosp Course IMPRESSION: 1. Positive troponin in the setting of renal failure and known cardiomyopathy.- no sig upotrend 2. Cardiomyopathy with decreased left ventricular ejection fraction approximately 30% to 35% by echo and stress 02/2016. 3. History of prior myocardial infarction by stress 02/2016. 4. Anemia, moderate to severe. s/p transfusion with adequte bump post transfusion 5. End-stage renal disease on hemodialysis. 6. Hypertension, uncontrolled. 7. Dyslipidemia. 8. Hypothyroid. 9. Peripheral arterial disease, status post peripheral bypass. 10. Lower extremity ulceration. 11.? PAF Recc: -Tele -Increase diovan to improve BP control -Continue asa -HD for volume removal Problems: Consultation Date/Type/Reason Admit Date/Time Mar 23, 2016 at 19:22 Initial Consult Date 03/24/2016 Type of Consultation: Cardiology Reason for Consultation CHF/HTN Referring Provider: ENRIQUE ERICKSON Exam/Review of Systems Vital Signs Vitals Vital Signs Date Time Temp Pulse Resp B/P Pulse Ox O2 Delivery O2 Flow Rate FiO2 03/25/16 12:03 70 03/25/16 11:59 98.3 19 171/78 96 03/25/16 04:00 Room Air Intake and Output 03/24/16 03/24/16 03/25/16 15:00 23:00 07:00 Intake Total 600 ml 360 ml Output Total 2300 ml 650 ml Balance -1700 ml -290 ml Exam Review of Systems: CONSTITUTIONAL: No fevers, chills. PULMONARY: No sob CARDIOVASCULAR: No chest pain/palpitations GASTROINTESTINAL: No nausea/vomiting. GENITOURINARY: No hematuria/dysuria. MUSCULOSKELETAL: No myagias/arthalgias. PSYCHIATRIC: The patient denies depression. NEUROLOGIC: lethargic Constitutional: alert Psych: no complaints Head: normocephalic ENMT: mucosa pink and moist Neck: jvd (9 cm water), supple Respiratory: diminished breath sounds (at bases/B) Cardiovascular: regular rate and rhythm Gastrointestinal: non-tender, soft Musculoskeletal: muscle tone (normal) Extremities: edema (none), other (Leg covered by dreessing s/p peripheral bypass/LE wound healing) Results Result Diagram: 03/25/16 0658 03/25/16 0658 Results 24 hrs Laboratory Tests Test 03/24/16 15:17 03/24/16 19:20 03/24/16 20:55 03/25/16 05:50 Bedside Glucose 102 162 72 Basophils # 0.0 Basophils % 0.5 Blood Morphology Comment Eosinophils # 0.2 Eosinophils % 3.9 Hematocrit 28.6 #L Hemoglobin 9.8 #L Lymphocytes # 1.6 Lymphocytes % 30.9 Mean Corpuscular Hemoglobin 30.1 Mean Corpuscular Hemoglobin Concent 34.1 Mean Corpuscular Volume 88.1 Mean Platelet Volume 6.9 L Monocytes # 0.5 Monocytes % 9.5 Neutrophils # 2.8 Neutrophils % 55.2 Nucleated Red Blood Cells # 0.0 Nucleated Red Blood Cells % 0.0 Platelet Count 136 L Red Blood Count 3.24 #L Red Cell Distribution Width 15.5 H White Blood Count 5.1 Test 03/25/16 06:58 03/25/16 13:12 Anion Gap 13 Basophils # 0.0 Basophils % 0.6 Blood Morphology Comment Blood Urea Nitrogen 24 #H Calcium Level 8.1 L Carbon Dioxide Level 30 Chloride Level 102 Cholesterol Level 107 Cholesterol/HDL Ratio 3.3 Creatinine 1.61 H Eosinophils # 0.2 Eosinophils % 5.7 Glucose Level 87 HDL Cholesterol 32 L Hematocrit 29.9 L Hemoglobin 10.3 L LDL Cholesterol, Calculated 50 Lymphocytes # 1.4 Lymphocytes % 32.2 Magnesium Level 1.9 Mean Corpuscular Hemoglobin 29.9 Mean Corpuscular Hemoglobin Concent 34.4 Mean Corpuscular Volume 87.1 Mean Platelet Volume 7.1 L Monocytes # 0.3 Monocytes % 7.7 Neutrophils # 2.4 Neutrophils % 53.8 Nucleated Red Blood Cells # 0.0 Nucleated Red Blood Cells % 0.0 Phosphorus Level 3.7 Platelet Count 123 L Potassium Level 3.4 L Red Blood Count 3.44 L Red Cell Distribution Width 15.5 H Sodium Level 142 Triglycerides Level 126 White Blood Count 4.4 L Bedside Glucose 177 Medications Medications Current Medications Ascorbic Acid (Vitamin C) 500 mg DAILY PO Last administered on 03/25/16 08:33 ; Admin Dose 500 MG; Start 03/24/16 at 09:00 Aspirin (Halfprin) 81 mg DAILY PO Last administered on 03/25/16 08:33; Admin Dose 81 MG; Start 03/24/16 at 09:00 Cholecalciferol (Vitamin D) 1,000 unit DAILY PO Last administered on 03/25/16 08:34; Admin Dose 1,000 UNIT; Start 03/24/16 at 09:00 Cilostazol (Pletal) 100 mg Q12 PO Last administered on 03/25/16 08:33; Admin Dose 100 MG; Start 03/24/16 at 09:00 Escitalopram Oxalate (Lexapro) 10 mg DAILY PO Last administered on 03/25/16 08 :33; Admin Dose 10 MG; Start 03/24/16 at 09:00 Ferrous Sulfate (Ferrous Sulfate (Ec)) 325 mg DAILY PO Last administered on 08:34; Admin Dose 325 MG; Start 03/24/16 at 09:00 Multivit/Ca Carb/ B Cmplx/FA/Prenat (Billie-Roge) 1 tab DAILY PO Last administered on 03/25/16 08:33; Admin Dose 1 TAB; Start 03/24/16 at 09:00 Polyethylene Glycol (Miralax) 17 gm DAILY PO Last administered on 03/25/16 08: 34; Admin Dose 17 GM; Start 03/24/16 at 09:00 Zinc Sulfate (Zinc Sulfate) 220 mg DAILY PO Last administered on 03/25/16 08: 34; Admin Dose 220 MG; Start 03/24/16 at 09:00 Pantoprazole (Protonix Tab) 40 mg DAILY@06 PO Last administered on 03/25/16 05 :54; Admin Dose 40 MG; Start 03/25/16 at 06:00 Atorvastatin Calcium (Lipitor) 80 mg DAILY@21 PO Last administered on 22:45; Admin Dose 80 MG; Start 03/24/16 at 21:00 Acetaminophen (Tylenol Tab) 650 mg Q4 PRN PO PAIN Last administered on 00:08; Admin Dose 650 MG; Start 03/24/16 at 10:30 Miscellaneous Information 1 ea NOTE XX ; Start 03/24/16 at 13:30 Glucose (Glutose) 15 gm Q15M PRN PO DECREASED GLUCOSE; Start 03/24/16 at 13:30 Glucose (Glutose) 22.5 gm Q15M PRN PO DECREASED GLUCOSE; Start 1/13/17 at 13: 30 Dextrose (D50w Syringe) 25 ml Q15M PRN IV DECREASED GLUCOSE; Start 03/24/16 at 13:30 Dextrose (D50w Syringe) 50 ml Q15M PRN IV DECREASED GLUCOSE; Start 03/24/16 at 13:30 Glucagon (Glucagen) 1 mg Q15M PRN IM DECREASED GLUCOSE; Start 03/24/16 at 13:30 Glucose (Glutose) 15 gm Q15M PRN BUCCAL DECREASED GLUCOSE; Start 03/24/16 at 13 :30 Valsartan (Diovan) 80 mg BID PO Last administered on 03/25/16 08:33; Admin Dose 80 MG; Start 03/24/16 at 21:00 Hydralazine HCl (Apresoline) 10 mg Q4H PRN IV SBP>170 Last administered on 03/25 13:14; Admin Dose 10 MG; Start 03/24/16 at 19:00 Ondansetron HCl (Zofran Inj) 4 mg Q4H PRN IV NAUSEA AND/OR VOMITING Last administered on 03/24/16 22:13; Admin Dose 4 MG; Start 03/24/16 at 21:30 Levofloxacin (Levaquin) 500 mg Q48H PO Last administered on 03/25/16 10:30; Admin Dose 500 MG; Start 03/25/16 at 09:00 YI RODRIGUEZ Mar 25, 2016 14:03
[2016-03-25] MEDS: ONDANSETRON 4 MG INJ IV PRN (15:39)
--- NOTE | 2016-03-25 18:03 | CONS ---
Date/Time of Note Date/Time of Note DATE: 03/25/16 TIME: 15:02 vk le Consultation Date/Type/Reason Admit Date/Time Mar 23, 2016 at 19:22 Type of Consultation: darcie Referring Provider: ENRIQUE ERICKSON Exam/Review of Systems Vital Signs Vitals Vital Signs Date Time Temp Pulse Resp B/P Pulse Ox O2 Delivery O2 Flow Rate FiO2 03/25/16 16:05 79 03/25/16 15:47 98.1 19 116/55 97 03/25/16 04:00 Room Air Intake and Output 03/24/16 03/24/16 03/25/16 15:00 23:00 07:00 Intake Total 600 ml 360 ml Output Total 2300 ml 650 ml Balance -1700 ml -290 ml Results Result Diagram: 03/25/16 0658 03/25/16 0658 Results 24 hrs Laboratory Tests Test 03/24/16 19:20 03/24/16 20:55 03/25/16 05:50 03/25/16 06:58 Basophils # 0.0 0.0 Basophils % 0.5 0.6 Blood Morphology Comment Eosinophils # 0.2 0.2 Eosinophils % 3.9 5.7 Hematocrit 28.6 #L 29.9 L Hemoglobin 9.8 #L 10.3 L Lymphocytes # 1.6 1.4 Lymphocytes % 30.9 32.2 Mean Corpuscular Hemoglobin 30.1 29.9 Mean Corpuscular Hemoglobin Concent 34.1 34.4 Mean Corpuscular Volume 88.1 87.1 Mean Platelet Volume 6.9 L 7.1 L Monocytes # 0.5 0.3 Monocytes % 9.5 7.7 Neutrophils # 2.8 2.4 Neutrophils % 55.2 53.8 Nucleated Red Blood Cells # 0.0 0.0 Nucleated Red Blood Cells % 0.0 0.0 Platelet Count 136 L 123 L Red Blood Count 3.24 #L 3.44 L Red Cell Distribution Width 15.5 H 15.5 H White Blood Count 5.1 4.4 L Bedside Glucose 162 72 Anion Gap 13 Blood Urea Nitrogen 24 #H Calcium Level 8.1 L Carbon Dioxide Level 30 Chloride Level 102 Cholesterol Level 107 Cholesterol/HDL Ratio 3.3 Creatinine 1.61 H Glucose Level 87 HDL Cholesterol 32 L LDL Cholesterol, Calculated 50 Magnesium Level 1.9 Phosphorus Level 3.7 Potassium Level 3.4 L Sodium Level 142 Triglycerides Level 126 Test 03/25/16 13:12 Bedside Glucose 177 FABY HORN MD Mar 25, 2016 18:03
[2016-03-25] MEDS ORDERED: VALSARTAN 80 MG TAB PO SCH (21:00)
--- NOTE | 2016-03-28 11:04 | RADRPT ---
Vent Rate: 79 bpm RR Interval: 0 msec PA Interval: 180 msec QRS Duration: 152 msec QT Interval: 482 msec QTC Interval: 552 msec P-R-T [place]: 92 - 131 - 73 degrees Suspect arm lead reversal, interpretation assumes no reversal Sinus rhythm with premature atrial complexes Right bundle branch block , plus right ventricular hypertrophy Left posterior fascicular block Bifascicular block Abnormal ECG Electronically Signed By: Omar Julien [id number]
== END 2016-03-25 17:05 | DRG 811 ==
LOC: E/R 17:30 → MS4 19:22
PROVIDERS: ADMIT Internal Medicine; ATTEND Internal Medicine
PROC: 30233N1 Transfusion of Nonautologous Red Blood Cells into Peripheral Vein, Percutaneous Approach (ICD-10-PCS; principal; 2016-03-24)
PROC: 5A1D60Z (ICD-10-PCS; 2016-03-24)
DX: D64.9 Anemia, unspecified (principal); J18.9 Pneumonia, unspecified organism; I21.4 Non-ST elevation (NSTEMI) myocardial infarction; N18.6 End stage renal disease; I12.0 Hypertensive chronic kidney disease with stage 5 chronic kidney disease or end stage renal disease; I42.9 Cardiomyopathy, unspecified; E11.9 Type 2 diabetes mellitus without complications; Z95.1 Presence of aortocoronary bypass graft; D63.1 Anemia in chronic kidney disease; Z99.2 Dependence on renal dialysis; F32.9 Major depressive disorder, single episode, unspecified; E03.9 Hypothyroidism, unspecified
CPT/HCPCS: 36415; 36430; 71010; 80048; 80053; 80061; 82962; 83735; 84100; 84443; 84484; 85025; 85610; 85730; 86850; 86900; 86901; 86920; 87070; 90935; 93005; G0378; J0360; J0886; J1956; J2405; J7040; P9016

== ENCOUNTER → 2016-04-14 | Outpatient (CLI) | payer MEDICARE, OTHER ==
[~2016-04-14] MED LIST changes: +ACET325T33 PO; +ASCO500C7 PO; +CHOL100062 PO; -CHOL500010 PO; -CRES10 PO; +ESCI10TA PO; -ESCI10TA48 PO; +FER325 PO; -FERR324T4 PO; -HYDR100T7 PO; +LEVO88TA3 PO; -LEVO88TA44 PO; +NEPH PO; +REPA0.5T3 PO; +ROSU20TA PO; -RPGL.5T PO; -TERA2CAP PO; +VALS40TA2 PO; +ZINC220T PO
[2016-04-14 20:07] LABS: POTASSIUM 4.1 mmol/L (3.5-5.1)
[2016-04-14 20:09] LABS: INR 0.94; PROTIME 12.6 Sec (12.2-14.2)
[2016-04-14 20:10] LABS: CREATININE 2.36 mg/dl (0.44-1.00); PARTIAL THROMBOPLASTIN TIME 27.7 Sec (25.0-35.0)
[2016-04-14 20:11] LABS: CALCIUM 8.7 mg/dl (8.4-10.2)
[2016-04-14 20:19] LABS: BASOPHILS % 0.5 % (0.0-2.0); EOSINOPHILS # 0.1 10^3/ul (0.0-0.5); EOSINOPHILS % 1.3 % (0.0-7.0); HEMATOCRIT 36.3 % (37.0-47.0); HEMOGLOBIN 12.2 g/dl (12.0-16.0); LYMPHOCYTES # 1.6 10^3/ul (0.8-2.9); LYMPHOCYTES % 28.8 % (15.0-51.0); MEAN CORPUSCULAR HEMOGLOBIN 30.8 pg (29.0-33.0); MEAN CORPUSCULAR HGB CONC 33.5 g/dl (32.0-37.0); MEAN CORPUSCULAR VOLUME 91.7 fl (82.0-101.0); MEAN PLATELET VOLUME 7.8 fl (7.4-10.4); MONOCYTE # 0.5 10^3/ul (0.3-0.9); MONOCYTES % 9.9 % (0.0-11.0); NEUTROPHIL # 3.3 10^3/ul (1.6-7.5); NEUTROPHILS % 59.5 % (39.0-77.0); PLATELET COUNT 150 10^3/UL (140-440); RED BLOOD COUNT 3.95 10^6/ul (4.20-5.40); RED CELL DISTRIBUTION WIDTH 16.7 % (11.5-14.5); UNCORRECTED WBC 5.5 10^3/ul (4.8-10.8); WHITE BLOOD COUNT 5.5 10^3/ul (4.8-10.8)
[2016-04-14 20:20] LABS: CONDITION 1; LH ANALYZER COMMENTS 1
--- NOTE | 2016-04-14 20:42 | RADRPT ---
PROCEDURE: XR Chest. CLINICAL INDICATION: Preop chest x-ray in a patient with renal failure. TECHNIQUE: Single frontal view of the chest was obtained COMPARISON: Chest x-ray 03/23/2016. FINDINGS: A mediastinotomy was performed. The heart is mildly enlarged. There are clips in the mediastinal a riley. There are vascular calcifications aortic arch. There is a double bore central venous catheter entering via right internal jugular approach with its tip in the right atrium. The pulmonary vascu lature and pleural spaces are normal. No infiltrate is noted. The bones are normal. IMPRESSION: 1. Atherosclerosis and ectasia of the thoracic aorta. 2. Status post median sternotomy for coronary artery bypass surgery. 3. Double bore central venous dialysis catheter entering from right internal jugular approach with its tip in the right atrium. There is no evidence of a pneumothorax. 4. Mild cardiomegaly without evidence of active cardiopulmonary disease. stable chest as compared to 03/23/2016. RPTAT:AAJJ Physician Faustina Date Time Electronically viewed and signed by Physician Faustina on 04/14/2016 20:41 GABBY/
== END | disposition home or self-care (01) ==
LOC: RAD 19:16
PROVIDERS: ATTEND Specialist
DX: Z01.818 Encounter for other preprocedural examination (principal); N19 Unspecified kidney failure; I70.0 Atherosclerosis of aorta; I77.810 Thoracic aortic ectasia; Z95.1 Presence of aortocoronary bypass graft; I51.7 Cardiomegaly
CPT/HCPCS: 71010; 80048; 85025; 85610; 85730

== ENCOUNTER 2016-07-02 14:47 | Inpatient (IN) | payer MEDICARE, OTHER ==
[~2016-07-02] VITALS: Ht 167.6 cm; Wt 75.0 kg
[2016-07-02] MEDS ORDERED: ONDANSETRON 4 MG INJ IV STA (14:48)
[2016-07-02] MEDS ORDERED: SOD CHLORIDE 0.9% 500 ML IV STA (14:48)
[2016-07-02] MEDS ORDERED: morphine 4 MG/ML VIAL IV STA (14:48)
[2016-07-02 14:53] VITALS: Ht 167.6 cm; Wt 75.0 kg
[2016-07-02 15:17] LABS: ADD SCAN DIFF NO
--- NOTE | 2016-07-02 15:17 | RADRPT ---
PROCEDURE: XR Chest. CLINICAL INDICATION: Syncope. TECHNIQUE: PA and Lateral views of the chest were obtained. COMPARISON: None. FINDINGS: The soft tissues are normal. There are degenerative osteophytes in the thoracic spine. A mediastin otomy was performed with clips noted in the mediastinum. A dual chamber cardiac pacemaker is in lisandro nted over the upper left chest wall. There is a large bore dialysis catheter with its tip in the ri ght atrium. The heart is enlarged. The cardiomediastinal silhouette and hilar structures are yolanda l. The pulmonary vasculature is normal. There are vascular calcifications in the aortic arch. The nino ngs are clear. The costophrenic angles are normal. IMPRESSION: 1. Cardiomegaly. 2. Dual chamber cardiac pacemaker over the upper left chest wall. 3. Large bore central venous catheter entering from a right internal jugular approach with its tip in the right atrium. No pneumothorax or evidence of active cardiopulmonary disease. 4. Atherosclerotic vascular disease. RPTAT:AAJJ Physician Faustina Date Time Electronically viewed and signed by Physician Faustina on 07/02/2016 15:16 GABBY/
--- NOTE | 2016-07-02 15:18 | RADRPT ---
PROCEDURE: XR Hip. CLINICAL INDICATION: Right hip pain. TECHNIQUE: AP and frog lateral views of the right hip were performed. COMPARISON: No. FINDINGS: An acute fracture is identified to the distal neck of the right femur. There are vascular calcifica tions in the superficial femoral artery. There is a clip in the right inguinal canal. The innomina te bone sacrum and SI joints are normal as visualized. IMPRESSION: 1. Acute fracture to the distal neck of the proximal right femur. 2. [place] vascular calcifications in the superficial femoral artery and common femoral artery. RPTAT:AAJJ Physician Faustina Date Time Electronically viewed and signed by Torres Kwon Physician on 07/02/2016 15:18 /
[2016-07-02 15:20] LABS: BASOPHILS % 0.2 % (0.0-2.0); EOSINOPHILS # 0.1 10^3/ul (0.0-0.5); EOSINOPHILS % 0.6 % (0.0-7.0); HEMATOCRIT 34.5 % (37.0-47.0); HEMOGLOBIN 10.9 g/dl (12.0-16.0); LYMPHOCYTES # 1.1 10^3/ul (0.8-2.9); LYMPHOCYTES % 13.1 % (15.0-51.0); MEAN CORPUSCULAR HEMOGLOBIN 31.3 pg (29.0-33.0); MEAN CORPUSCULAR HGB CONC 31.6 g/dl (32.0-37.0); MEAN CORPUSCULAR VOLUME 99.1 fl (82.0-101.0); MONOCYTE # 0.5 10^3/ul (0.3-0.9); MONOCYTES % 6.3 % (0.0-11.0); NEUTROPHIL # 6.5 10^3/ul (1.6-7.5); NEUTROPHILS % 79.2 % (39.0-77.0); PLATELET COUNT 140 10^3/UL (140-415); RED BLOOD COUNT 3.48 10^6/ul (4.20-5.40); RED CELL DISTRIBUTION WIDTH 15.7 % (11.5-14.5); WHITE BLOOD COUNT 8.3 10^3/ul (4.8-10.8)
[2016-07-02 15:23] LABS: MEAN PLATELET VOLUME 10.6 fl (7.4-10.4)
[2016-07-02 15:32] LABS: POTASSIUM 4.8 mmol/L (3.5-5.1)
[2016-07-02 15:35] LABS: CREATININE 4.62 mg/dl (0.44-1.00)
[2016-07-02 15:36] LABS: CALCIUM 8.8 mg/dl (8.4-10.2)
[2016-07-02 15:39] LABS: INR 1.14; PARTIAL THROMBOPLASTIN TIME 26.6 Sec (25.0-35.0); PROTIME 14.6 Sec (12.2-14.2); PT RATIO 1.1
[2016-07-02 15:47] LABS: TROPONIN-I 0.016 ng/ml (0.00-0.12)
--- NOTE | 2016-07-02 15:50 | ERA ---
ER Documentation Chief Complaint Date/Time DATE: 07/02/16 TIME: 15:47 Chief Complaint BIB RA FOR EVAL OF RT HIP PAIN. S/P GLF TODAY. NO KO HPI 75-year-old female history of CABG, end-stage renal disease on dialysis Sunday and Sunday who presents with mechanical trip and fall. Patient verbally reports that she slipped while using her walker just prior to arrival. She fell on the right side of her body. She did hit her head but did not lose consciousness. She describes moderate to severe right hip pain that is worse with movement. Shortening is noted via EMS. Patient denies any prodrome of chest pain or shortness of breath. Her daughter is interpreting. No anticoagulants. ROS All systems reviewed and are negative except as per history of present illness. Medications Home Meds Reported Medications Gabapentin* (Gabapentin*) 100 Mg Capsule, 100 MG PO DAILY Y for PRN, #90 CAP 07/02/16 Metoprolol Succinate* (Toprol XL*) 25 Mg Tab.sr.24h, 25 MG PO DAILY, #30 TAB 07/02/16 Hydralazine Hcl* (Hydralazine Hcl*) 50 Mg Tab, 50 MG PO TID, #90 TAB 07/02/16 Repaglinide* (Repaglinide*) 0.5 Mg Tablet, 0.5 MG PO AC MEALS, TAB 03/23/16 Sevelamer Carbonate* (Renvela*) 800 Mg Tablet, 0.8 GM PO WITH MEALS, TAB 03/23/16 Multivit/Ca Carb/B Cmplx/Fa* (Billie-Roge*) 1 Tab Tab, 1 TAB PO DAILY, TAB 03/23/16 Esomeprazole Mag Trihydrate (Nexium) 40 Mg Capsule.dr, 40 MG PO QAM, #30 CAP 03/23/16 Polyethylene Glycol* (Miralax*) 17 Gm Powd.pack, 17 GM PO DAILY, #30 PACKET 03/23/16 Escitalopram Oxalate* (Lexapro*) 10 Mg Tablet, 10 MG PO DAILY, #30 TAB 03/23/16 Levothyroxine Sodium* (Levothyroxine Sodium*) 88 Mcg Tablet, 88 MCG PO BEFORE BREAKFAST, #30 TAB 03/23/16 Ferrous Sulfate* (Ferrous Sulfate*) 325 Mg Tabec, 325 MG PO DAILY, TAB 03/23/16 Rosuvastatin Calcium* (Crestor*) 20 Mg Tablet, 20 MG PO QHS, #30 TAB 03/23/16 Cilostazol* (Cilostazol*) 100 Mg Tablet, 100 MG PO Q12, TAB 03/23/16 Cholecalciferol* (Vitamin D3*) 1,000 Unit Tablet, 1000 UNIT PO DAILY, TAB 03/23/16 Aspirin* (Aspirin* EC) 81 Mg Tablet.dr, 81 MG PO DAILY, TAB 01/18/16 Discontinued Reported Medications Ascorbic Acid* (Vitamin C*) 500 Mg Capsule.sa, 500 MG PO DAILY, CAP 03/23/16 Zinc Sulfate* (Zinc Sulfate*) 220 Mg Tablet, 220 MG PO DAILY, TAB 03/23/16 Valsartan* (Diovan*) 40 Mg Tablet, 40 MG PO BID, TAB HOLD IF SBP<110 03/23/16 Acetaminophen* (Tylenol*) 325 Mg Tablet, 650 MG PO Q4H Y for MILD PAIN LEVEL 1-4 , TAB for fever temp>101 nte 03/23/16 Allergies Allergies: Coded Allergies: No Known Allergy (Verified , 07/02/16) PMhx/Soc History of Surgery: Yes (CaBG, PAD Fem-Pop bypass) Anesthesia Reaction: No Hx Neurological Disorder: No Hx Respiratory Disorders: No Hx Cardiac Disorders: Yes (CAD, CABG, CArdiomyopathy) Hx Psychiatric Problems: No Hx Miscellaneous Medical Probl: No Hx Alcohol Use: No Hx Substance Use: No Hx Tobacco Use: No Smoking Status: Never smoker FmHx Family History: No diabetes Physical Exam Vitals Vital Signs Date Time Temp Pulse Resp B/P Pulse Ox O2 Delivery O2 Flow Rate FiO2 07/02/16 14:53 98.0 71 18 131/47 100 07/02/16 14:51 65 30 131/47 100 Room Air Physical Exam Airway is intact Bilateral breath sounds Strong distal pulses No obvious deficits General: Well developed, well nourished, no acute distress Head: Normocephalic, atraumatic Eyes: Pupils equally reactive, EOM intact ENT: Moist mucous membranes Neck: Supple, no lymphadenopathy, No midline tenderness, deformities, step-offs to the cervical spine, full active and passive range of motion without midline pain. Respiratory: Lungs clear bilaterally, no distress, no chest wall tenderness, no crepitus Cardiovascular: RRR, no murmurs, rubs, or gallops Abdominal: Soft, non-tender, non-distended, no peritoneal signs, pelvis is stable : Deferred MSK: The patient has obvious shortening and external rotation of the right lower extremity. Focal tenderness of the right hip. No other bony abnormalities to other extremities are noted, no midline tenderness deformities or step-offs to the thoracolumbar spine Neurologic: Alert and oriented, moving all extremities, normal speech, no focal weakness, no cerebellar signs Skin: No ecchymoses or bruising to the chest or abdomen Psych: Normal mood Result Diagram: 07/02/16 1500 07/02/16 1500 Results 24 hrs Laboratory Tests Test 07/02/16 15:00 White Blood Count 8.310^3/ul Red Blood Count 3.4810^6/ul Hemoglobin 10.9g/dl Hematocrit 34.5% Mean Corpuscular Volume 99.1fl Mean Corpuscular Hemoglobin 31.3pg Mean Corpuscular Hemoglobin Concent 31.6g/dl Red Cell Distribution Width 15.7% Platelet Count 17947^3/UL Mean Platelet Volume 10.6fl Neutrophils % 79.2% Lymphocytes % 13.1% Monocytes % 6.3% Eosinophils % 0.6% Basophils % 0.2% Nucleated Red Blood Cells % 0.0/100WBC Neutrophils # 6.510^3/ul Lymphocytes # 1.110^3/ul Monocytes # 0.510^3/ul Eosinophils # 0.110^3/ul Basophils # 0.010^3/ul Nucleated Red Blood Cells # 0.010^3/ul Prothrombin Time 14.6Sec Prothrombin Time Ratio 1.1 INR International Normalized Ratio 1.14 Activated Partial Thromboplast Time 26.6Sec Sodium Level 133mmol/L Potassium Level 4.8mmol/L Chloride Level 95mmol/L Carbon Dioxide Level 22mmol/L Anion Gap 21 Blood Urea Nitrogen 62mg/dl Creatinine 4.62mg/dl Glucose Level 194mg/dl Calcium Level 8.8mg/dl Troponin I 0.016ng/ml Current Medications Medications (Trade) Dose Ordered Sig/Jostin Route PRN Reason Start Time Stop Time Status Last Admin Dose Admin Sodium Chloride (NS) 500 ml @ 500 mls/hr Q1H STAT IV 07/02/16 14:48 07/02/16 15:47 DC 07/02/16 15:40 Morphine Sulfate (morphine) 4 mg ONCE STAT IV 07/02/16 14:48 07/02/16 14:51 DC 07/02/16 15:40 Ondansetron HCl (Zofran Inj) 4 mg ONCE STAT IV 07/02/16 14:48 07/02/16 14:51 DC 07/02/16 15:40 Procedures/MDM EKG, MONITORS, & DIAGNOSTIC IMAGING: EKG: I reviewed and interpreted a 12-lead EKG. Rhythm: Cardiac pacemaker Ectopy: None Intervals: No abnormalities ST segments: No elevations or depressions T waves: No contiguous inversions Chest x-ray: I reviewed and interpreted a 1 view of the chest Mediastinum: No enlargement Cardiac silhouette: No cardiomegaly Airspace: Clear lung bradshaw bilaterally without evidence of pneumothorax Bones: No evidence of fracture X-ray right hip: I reviewed and interpreted multiple views of the x-ray Bones: Closed femoral neck fracture, no foreign bodies, no dislocation Soft tissue: No evidence of foreign body CT brain: Radiology read, no acute process CT cervical spine: Radiology read no acute process LAB INTERPRETATION: No leukocytosis, no hyperkalemia, end-stage renal disease MEDICAL DECISION MAKING: The patient presents the emergency room with clear, explain mechanical fall. The patient has signs and symptoms very consistent with closed right hip fracture. The patient did hit her head, she did not lose consciousness. No evidence of syncope or arrhythmia. The patient will benefit from CT imaging of the head and cervical spine given her age. Given the likelihood of fracture, preoperative laboratory testing was initiated. The patient will likely require inpatient hospitalization for surgical management ER COURSE: X-ray imaging confirms right hip fracture. Pain medicine provided. The patient will be admitted for further management of close fracture of the right hip. Orthopedic surgeon and primary admitting team notified. I kept the patient and/or family informed of laboratory and diagnostic imaging results throughout the emergency room course. DISPOSITION PLAN: Medical surgical admission for management of hip fracture CONSULTATION: Accepting care team and consultations: I discussed the current laboratory data, diagnostic imaging and emergency care provided. Admitting team: Dr. Amos diamond broker for Dr. Jensen Admitting team indication: Insurance directed Consulting services: Orthopedic surgeon Dr. Maria notified he will consult on the case Departure Diagnosis: Primary Impression: Closed displaced fracture of right femoral neck Qualified Code: S72.001A - Closed displaced fracture of right femoral neck, initial encounter Additional Impression: End stage renal disease on dialysis Condition: Stable AMIE CONNER MD Jul 02, 2016 15:50
[2016-07-02] MEDS ORDERED: HYDR-3672 PO (15:51)
[2016-07-02] MEDS ORDERED: METO25TA7 PO (15:52)
[2016-07-02] MEDS ORDERED: GABA100C14 PO (15:52)
--- NOTE | 2016-07-02 16:08 | RADRPT ---
PROCEDURE: CT Brain without contrast. CLINICAL INDICATION: Patient experiencing Syncope. TECHNIQUE: A CT of the brain was performed on a high-resolution CT scanner utilizing a low dose te chnique with axial imaging from the skull base through the vertex without IV contrast. Multiplanar reformatted images were made. Images were reviewed on a PACS workstation. The CTDIvol is 41 mGy an d the DLP is 720 mGycm. One or more of the following dose reduction techniques were used: - Automated exposure control. - Adjustment of the mA and/or kV according to patient size. Use of iterative reconstruction technique. COMPARISON: No FINDINGS: The fourth ventricle is normal in size. The third and lateral ventricles are normal in size and con figuration. Brain parenchyma is normal. There are idiopathic basal ganglia calcifications which hair ear benign. There are chronic small vessel ischemic changes in the periventricular white matter tra cts adjacent to the lateral ventricles. No intracranial mass or hemorrhage is identified. The visible portions of the globes and extraocular muscles are normal. The paranasal sinuses are cl ear. The mastoid air cells and internal auditory canals are normal. The bony calvarium is intact. There are vascular calcifications in the cavernous and supracavernous portions of the internal carot id arteries. IMPRESSION: 1. There are chronic small vessel ischemic changes in the periventricular white matter tracts adjac ent to the lateral ventricles. 2. There are vascular calcifications in the cavernous and supracavernous portions of the internal c arotid arteries. 3. Idiopathic basal ganglion calcifications. 4. No evidence of an intracranial mass or acute intracranial hemorrhage. RPTAT:AAJJ Physician Faustina Date Time Electronically viewed and signed by Physician Faustina on 07/02/2016 16:07 GABBY/
--- NOTE | 2016-07-02 16:15 | RADRPT ---
PROCEDURE: CT Cervical Spine. CLINICAL INDICATION: Neck pain TECHNIQUE: A CT of the cervical spine was performed on a [employer]de[employer]broker 64-slice CT scanner utilizi ng high-resolution axial imaging from the skull base through the cervical thoracic junction. Sagitt al, coronal, and multiplanar reformatted images were made. CTD I: 22.24 mGy and DLP: 488.98 mGy-cm One or more of the following dose reduction techniques were used: Automated exposure control. Adjustment of the mA and/or kV according to patient size. Use of iterative reconstruction technique. COMPARISON: None FINDINGS: There is straightening of the cervical lordosis. No vertebral body subluxation is seen. No fracture s are evident. The posterior elements are normally aligned. The surrounding soft tissues are yolanda l in appearance. The craniocervical junction is unremarkable. Prominent Schmorl's nodes are seen in the superior endplate of C7 and T1. Bulky concentric heavily calcified plaques at the carotid bulbs and proximal ICA. C2-C3: The disk height is maintained. There is a small central disk protrusion. The central canal and bilateral neural foramina are adequately patent. C3-C4: The disk height is maintained. There is mild disk bulge with small uncovertebral spurring r ight greater than left. The central canal and bilateral neural foramina are adequately patent. C4-C5: The disk height is maintained. Diffuse disk bulge with small uncovertebral spurring and mil d facet arthropathy are seen at this level. There is mild to moderate right neural foraminal stenos is. The central canal and left neural foramen are adequately patent. C5-C6: There is moderate disk height loss with discogenic endplate changes. Disk osteophyte comple x, prominent right-sided uncovertebral spurring and minimal facet arthropathy are seen at this level . There is moderate to severe right neural foraminal stenosis. There is mild central canal and left neural foraminal stenosis. C6-C7: The disk height is maintained. There is a small disk bulge eccentric to the left with small uncovertebral spurring. The central canal and bilateral neural foramina are adequately patent. C7-T1: The disk height is maintained. The central canal and bilateral neural foramina are adequate ly patent. IMPRESSION: 1. No acute fracture or traumatic malalignment. 2. Moderate discogenic disease at C5-C6 with associated moderate to severe right neural foraminal s tenosis. Mild central canal and mild left neural foraminal stenosis. 3. Mild to moderate right neural foraminal stenosis at C4-C5. The remainder as above. 4. Bulky circumferential calcific plaques involving the carotid bulbs and proximal ICA. RPTAT: QQ .Amauri Maya MD, Date Time Electronically viewed and signed by .Amauri Maya MD, on 07/02/2016 16:14 .O/
[2016-07-02] MEDS ORDERED: ONDANSETRON 4 MG INJ IV PRN (17:00)
[2016-07-02] MEDS ORDERED: ACETAMINOPHEN 325 MG TAB PO PRN (17:00)
[2016-07-02 20:16] VITALS: BP 144/66; RESP 18
[2016-07-02 20:32] VITALS: BP 143/63; PULSE 74; RESP 14
[2016-07-02] MEDS ORDERED: GLUCOSE GEL 15 GRAM TUBE BUCCAL PRN (23:45)
[2016-07-02] MEDS ORDERED: DEXTROSE 50% 50 ML SYRINGE IV PRN ×2 (23:45)
[2016-07-02] MEDS ORDERED: GLUCAGON 1 MG INJ IM PRN (23:45)
[2016-07-02] MEDS ORDERED: GLUCOSE GEL 15 GRAM TUBE PO PRN ×2 (23:45)
[2016-07-02] MEDS ORDERED: DEXTROSE 5%-0.9% NACL 1,000 ML IV SCH (23:50)
[2016-07-03] VITALS (10 sets, daily range): BP systolic 109–150; BP diastolic 50–84; PULSE 68–79; RESP 16–18
[2016-07-03] MEDS: INSULIN ASPART [NOVOLOG] 3 ML PEN SC SCH ×6 (01:30→21:00)
[2016-07-03] MEDS ORDERED: ACCU-CHEK XX SCH (02:00)
[2016-07-03] MEDS: ACCU-CHEK XX SCH (02:00)
[2016-07-03 05:10] LABS: ADD SCAN DIFF NO
[2016-07-03 05:24] LABS: BASOPHILS % 0.4 % (0.0-2.0); EOSINOPHILS # 0.1 10^3/ul (0.0-0.5); HEMATOCRIT 34.8 % (37.0-47.0); HEMOGLOBIN 10.9 g/dl (12.0-16.0); LYMPHOCYTES # 1.7 10^3/ul (0.8-2.9); LYMPHOCYTES % 19.6 % (15.0-51.0); MEAN CORPUSCULAR HEMOGLOBIN 31.9 pg (29.0-33.0); MEAN CORPUSCULAR HGB CONC 31.3 g/dl (32.0-37.0); MEAN CORPUSCULAR VOLUME 101.8 fl (82.0-101.0); MEAN PLATELET VOLUME 10.2 fl (7.4-10.4); MONOCYTE # 0.8 10^3/ul (0.3-0.9); MONOCYTES % 8.5 % (0.0-11.0); NEUTROPHIL # 6.2 10^3/ul (1.6-7.5); NEUTROPHILS % 69.8 % (39.0-77.0); NUCLEATED RED BLOOD CELLS% 0.2 /100WBC (0.0-0.0); PLATELET COUNT 160 10^3/UL (140-415); RED BLOOD COUNT 3.42 10^6/ul (4.20-5.40); RED CELL DISTRIBUTION WIDTH 15.9 % (11.5-14.5); WHITE BLOOD COUNT 8.9 10^3/ul (4.8-10.8)
[2016-07-03 05:33] LABS: CALCIUM 8.5 mg/dl (8.4-10.2); CREATININE 4.73 mg/dl (0.44-1.00); INR 1.2; POTASSIUM 5.2 mmol/L (3.5-5.1); PROTIME 15.3 Sec (12.2-14.2); PT RATIO 1.2
[2016-07-03 05:34] LABS: PARTIAL THROMBOPLASTIN TIME 31.4 Sec (25.0-35.0)
[2016-07-03] MEDS ORDERED: PANTOPRAZOLE (EC) 40 MG TAB PO SCH (06:00)
[2016-07-03] MEDS: HYDROmorphONE 1 MG/ML SYG IV PRN ×2 (06:56→19:23)
[2016-07-03] MEDS ORDERED: SPECIAL NON-STANDARD MEDICATION PO SCH ×2 (07:20→21:00)
[2016-07-03] MEDS: REPAGLINIDE 1 MG TAB PO SCH ×3 (07:30→19:04)
[2016-07-03] MEDS: SEVELAMER CARBONATE 0.8 GM PKT PO SCH ×3 (07:50→19:04)
[2016-07-03] MEDS ORDERED: INSULIN ASPART [NOVOLOG] 3 ML PEN SC SCH (07:50)
[2016-07-03] MEDS: LEVOTHYROXINE 88 MCG TAB PO SCH (07:58)
[2016-07-03] MEDS: PANTOPRAZOLE (EC) 40 MG TAB PO SCH (07:58)
[2016-07-03] MEDS ORDERED: CHOLECALCIFEROL 1,000 UNIT TAB PO ONE (09:00)
[2016-07-03] MEDS ORDERED: ASPIRIN (EC) 81 MG TAB PO ONE (09:00)
[2016-07-03] MEDS: ESCITALOPRAM 10 MG TAB GTB SCH (09:19)
[2016-07-03] MEDS: FERROUS SULFATE (EC) 325 MG TAB PO SCH (09:20)
[2016-07-03] MEDS: GABAPENTIN 100 MG CAP PO SCH (09:21)
[2016-07-03] MEDS: METOPROLOL (XL) 25 MG TAB PO SCH (09:22)
[2016-07-03] MEDS: MULTIVIT/CA CARB/B CMPLX/FA TAB PO SCH (09:22)
[2016-07-03] MEDS ORDERED: SOD CHLORIDE 0.9% 1,000 ML IV SCH (09:30)
[2016-07-03] MEDS: POLYETHYLENE GLYCOL 17 GM PACKET PO SCH (09:31)
--- NOTE | 2016-07-03 10:37 | HP ---
DATE OF ADMISSION: 07/02/2016 CHIEF COMPLAINT: Right hip fracture. HISTORY OF PRESENT ILLNESS: This is a 75-year-old female with a past medical history of end-stage r enal disease on dialysis on Sunday and Sunday, access Perm-A-Cath, history of peripheral vascular di sease status post right lower extremity bypass, history of cardiomyopathy, history of coronary arter y disease status post CABG, history of arrhythmia, history of diabetes who presented to [facility] after suffering a mechanical fall. The patient was apparently using a walker when she had a fall and fell down on her right hip. The patient developed right hip pain and as a result was transferred to [facility] Emergency Room. In the emergency room, the patient had an x -ray of the right hip which showed a right hip fracture. The patient's CT scan of the brain which s howed no acute findings. A CT scan of the neck, which showed evidence of discogenic disease, but no acute fracture. In the emergency room, the patient was given IV hydration and admitted to med/surg . Also, orthopedist, Dr. Maria, was consulted for evaluation. Upon my evaluation of the patient at this time, she is currently stable. She is complaining of some mild right-sided hip pain. She otherwise denies fevers, chills, nausea, vomiting or shortness of b reath. PAST MEDICAL HISTORY: History of end-stage renal disease, diabetes, hypertension, cardiomyopathy, h ypothyroidism, anemia, coronary artery disease. PAST SURGICAL HISTORY: Status post CABG, status post right lower extremity fem-pop. MEDICATIONS: Patient medications have been reviewed. FAMILY HISTORY: No family history of cancer, heart disease. SOCIAL HISTORY: Noncontributory. ALLERGIES: NO KNOWN DRUG ALLERGIES. REVIEW OF SYSTEMS: A 14-point review of systems was conducted. Pertinent positives in HPI, otherwi se negative. PHYSICAL EXAMINATION: VITAL SIGNS: Blood pressure is 150/67, respiration 18, pulse 70, temperature 97.9. HEENT: Head is normocephalic. Pupils are reactive to light. NECK: Supple. HEART: Regular rate. CHEST: The patient has Perm-A-Cath. ABDOMEN: Soft, nontender to palpation. EXTREMITIES: Negative for clubbing, cyanosis, no edema. MUSCULOSKELETAL: Positive tenderness to palpation right hip. The patient has a left AV fistula wit h good thrill and bruit. NEUROLOGIC: No obvious focal deficits, although exam is somewhat limited due to underlying pain. LABORATORY DATA: Shows white count 8.9, hemoglobin 10.9, hematocrit 34.8, platelet count 160. Sodi um 131, potassium 5.2, chloride 100, BUN 60, creatinine 4.73, glucose 223. Magnesium level 2.7. ASSESSMENT AND PLAN: This is a 75-year-old female who presents with: 1. Right hip fracture secondary to mechanical fall. Plan at this point is to place an orthopedic c onsult with Dr. Maria to evaluate for open reduction internal fixation. A cardiology consult will be placed with Dr. Benson, for clearance. Will otherwise continue pain control, DVT prophylaxis with sequential leg squeezers. Will monitor closely. 2. End-stage renal disease. The patient had dialysis on Sunday and Sunday. Plan for dialysis toda y for 3 hours, 2K bath, calcium 2.5, ultrafiltrate as tolerated. 3. Hyperkalemia secondary to end-stage renal disease. The patient will be dialyzed with 2 potassiu m bath. 4. Hyponatremia secondary to end-stage renal disease. We will dialyze the patient 140 sodium bath and limit free water intake. 5. Hypertension in part due to underlying pain and increased intravascular volume. We will ultrafi ltrate with hemodialysis. We will continue current blood pressure regimen. Will continue pain cont rol. 6. Diabetes. Will continue Accu-Cheks, insulin sliding scale. 7. Anemia of end-stage renal disease. Will continue patient on Epogen. Monitor H and H levels. 8. Cardiomyopathy, coronary artery disease. We will continue current medical management. Will lisandro ce a cardiology consult with Dr. Benson for evaluation. 9. Peripheral vascular disease status post right lower extremity fem-pop. 10. Hypothyroidism. Continue Synthroid. 11. Diabetes, continue Accu-Cheks and sliding scale. 12. Gastrointestinal and deep venous thrombosis prophylaxis, continue proton pump inhibitor, sequen tial leg squeezers. Over 25 minutes of face to face time with this patient and patient's family discussing code status. The patient is FULL CODE. Dictated By: BRANDI CHANEY/ANA Conf#: [id number] DID#: [id number]
--- NOTE | 2016-07-03 13:56 | CONS ---
DATE OF ADMISSION: 07/02/2016 DATE OF CONSULTATION: 07/03/2016 REASON FOR CONSULTATION: Preoperative evaluation. REQUESTING PHYSICIAN: Dr. Erickson. HISTORY OF PRESENT ILLNESS: Ms. Clark is an 75-year-old female well known to myself as primary o ffice patient and multiple hospital admissions with a history of end-stage renal disease on hemodial ysis, peripheral vascular disease, status post relatively recent right lower extremity bypass at [facility] coronary artery disease, status post coronary artery bypass grafting. Cardiac arrhythmia with episodes of bradycardia, now status post permanent pacemaker, diabetes mellitus, hypertension, cardi omyopathy with decreased left ventricular ejection fraction last known to be by echo at outside hosp [facility] in 02/2016, revealing an EF of 35%, akinetic inferior basal and inferior mid segment, mild mitr al and aortic valve regurgitation and moderate tricuspid regurgitation. The patient now presents st atus post fall, complains of hip pain. Upon arrival, afebrile, blood pressure 131/47, pulse 65, satting 100%. The patient's labs, a white count of 8.3, hemoglobin 10.9, platelet count 140. Sodium 133, potassium 4.8, creatinine of 4.6, BU N of 62. Troponin negative. INR of 1.1. The patient underwent a hip x-ray revealing acute fracture to the distal neck of the proximal right femur. [place] vascular calculations of superficial femoral artery and common femoral artery. The patient had a chest x-ray that revealed cardiomegaly, dual chamber, cardiac pacemaker in the lef t upper chest. Cervical spine CT revealing no acute fractures or traumatic misalignment, moderate d iscogenic disease at C5-C6, mild to moderate right neural foraminal stenosis C4-C5 and bulky circumf erential calcific plaques. Additionally, the patient had a head CT revealing chronic small vessel ischemic changes, vascular ca lcifications, idiopathic basal ganglionic calcifications, no evidence for intracranial mass or acute intracranial hemorrhage. The patient's electrocardiogram is ventricular paced at a rate of 68 single PVC. The patient has been admitted to the floor and since admitted to the floor, denies chest pain, shortness of amado th. The patient undergoing hemodialysis at this time. PAST MEDICAL HISTORY: As above in HPI. MEDICATIONS CURRENTLY IN HOSPITAL: 1. Lipitor 80 mg at bedtime. 2. Epogen. 3. Hydralazine 50 mg p.o. t.i.d. 4. Ferrous sulfate 300 mg daily. 5. Lexapro 10 mg daily. 6. Toprol-XL 25 mg daily. 7. Neurontin 100 mg daily. 8. Renvela. 9. Synthroid 88 mcg daily. 10. Protonix 40 mg daily. 11. Insulin sliding scale. ALLERGIES: NO KNOWN DRUG ALLERGIES. SOCIAL HISTORY: No current tobacco, ETOH or illicit drug use. FAMILY HISTORY: No history of sudden cardiac or early CAD. REVIEW OF SYSTEMS: As above in HPI. CONSTITUTIONAL: No fevers, chills. PULMONARY: No current signs of respiratory compromise. GASTROINTESTINAL: No vomiting. GENITOURINARY: End-stage renal disease. PSYCHIATRIC: No documented psych history. NEUROLOGIC: No documented history of CVA. ENDOCRINE: Thyroid disease, diabetes mellitus. PHYSICAL EXAMINATION: VITAL SIGNS: Temperature 97.9, blood pressure 150/67, pulse 70, respiratory rate 18, saturating 100 %. GENERAL: The patient is alert, awake, complaining of right hip pain. NECK: JVP approximately 8 to 9 cm of water. CHEST: Fair air movement throughout. HEART: Regular rate and rhythm. Normal S1, S2, I/ systolic murmur, nondisplaced PMI. ABDOMEN: Positive bowel sounds, soft. EXTREMITIES: No pitting edema, 1+ pulses posterior tibial. LABORATORY DATA: As above in HPI with most recently from today, sodium 131, potassium 5.2, creatini ne of 4.73, BUN of 62. INR of 1.2. White cell 8.9, hemoglobin 10.9, platelet count of 160. IMAGING STUDIES: As above in HPI. No further imaging studies for my review at this time. ECG: As above in HPI. No further electrocardiograms for my review at this time. IMPRESSION: 1. Preoperative evaluation prior to open reduction internal fixation of the right hip. 2. History of cardiomyopathy with decreased left ventricular ejection fraction, last known to be ap proximately 35% by echo February 2016 with a negative stress February 2016, revealing scar but no is chemia. 3. History of permanent pacemaker implantation for bradyarrhythmias. 4. History of coronary artery disease, status post coronary bypass graft surgery. 5. Peripheral arterial disease status post relatively recent lower extremity bypass surgery. 6. End-stage renal disease on hemodialysis. 7. Diabetes mellitus. 8. Thyroid dysfunction. 9. Cardiomyopathy with decreased left ventricular ejection fraction. 10. Status post fall. 11. Hip fracture. RECOMMENDATIONS: 1. At this time, would expect to look at EKGs to assess for any significant ongoing changes and com plete a rule out for myocardial infarction to ensure the patient's fall was not resultant in acute m yocardial infarction. 2. Would reassess patient's ejection fraction with a 2D echo prior to surgery, discussed most recen t ejection fraction and I will continue the patient on a beta valentina, hydralazine at this time for afterload reduction with probable change to MEDARDO inhibitor. The patient is to remain on hemodialysis and potassium remaining stable. 3. If the patient's troponins return negative x3, at that time the patient will be without cardiac contraindication to proceeding to the OR on current medications including beta valentina continued pre and postoperatively, likely at a moderate risk at that time without further noninvasive evaluation. Postoperatively, would follow closely for any signs of cardiovascular complications including but not limited to the onset of chest pain, shortness of breath, uncontrolled cardiac arrhythmias or dev elopment of congestive heart failure. Thank you for allowing me to take part in the care of this patient. I will continue to follow along very closely with you, with further recommendations made as patient progresses through her [facility] clinical course. Dictated By: YI WATSON/ANA Conf#: [id number] DID#: [id number] CC: BRANDI ERICKSON DO;*EndCC*
[2016-07-03 14:12] LABS: CK-MB 1.11 ng/ml (0.0-2.4); TROPONIN-I 0.018 ng/ml (0.00-0.12)
--- NOTE | 2016-07-03 17:32 | CONS ---
DATE OF ADMISSION: 07/02/2016 DATE OF CONSULTATION: 07/03/2016 TYPE OF CONSULTATION: Orthopedic surgical consultation. HISTORY OF PRESENT ILLNESS: The patient is a 75-year-old female who was admitted on 07/02/2016 when she was brought into the emergency room complaining of painful limit of motion involving her right hip. She has multiple medical problems including end-stage renal disease on dialysis, cerebellar vascula r insufficiency, status post bypass surgery of the right lower extremity, cardiomyopathy, history of coronary artery disease, status post CABG and diabetes. PHYSICAL EXAMINATION: GENERAL: My examination revealed a 75-year-old female who is not in any acute distress at this time . EXTREMITIES: There was tenderness and swelling around the right hip. There was a shortening and ab normal external rotation of the right lower extremity which is suggestive of hip fracture. There we re no neurovascular compromise involving the right lower extremity. Range of motion of the right hi p was not tested because of the obvious pain. DIAGNOSTIC STUDIES: X-rays of the right hip revealed the presence of subcapital femoral neck fractu re. DIAGNOSTIC IMPRESSION: Subscapital femoral neck fracture of the right hip. TREATMENT PLAN: To surgery for hemiarthroplasty of the right hip as soon as she can be medically cl eared for surgery. Dictated By: STEPHANIE GREEN/ANA Conf#: [id number] DID#: [id number]
[2016-07-03 18:36] LABS: CREATINE KINASE 21 IU/L (23-200)
[2016-07-03 18:48] LABS: TROPONIN-I < 0.012 ng/ml (0.00-0.12)
--- NOTE | 2016-07-03 19:17 | RADRPT ---
Echocardiogram Report Patient Name: MOIRA VILLAGOMEZ Gender: Female Date: 1940 Study Date: 03-Jul-2016 Nurse Midwife/Clinical Instructor: Endy Covarrubias RDCS Location: [id number] Ref. Physician: YI BENSON Quality: Good Procedures: Transthoracic echocardiogram with complete 2D, M-Mode, and doppler examination. Indications: Pre-op. 2D/M Mode Doppler Measurement Value Normal Ranges Measurement Value Normal Ranges LVIDd 2D 5.4 3.5 - 5.6 cm AMISH Vmax 0.9 cm2 LVIDs 2D 4.2 2.1 - 4.1 cm AMISH VTI 0.9 cm2 LVPWd 2D 1.1 0.6 - 1.1 cm AV Mean Israel 1.8 m/sec IVSd 2D 1.1 0.6 - 1.1 cm AV Mean PG 15.5 mmHg AoR Diam 2D 2.1 2.0 - 3.7 cm AV Peak Israel 2.7 m/sec EDV 2D 143.3 cm3 AV Peak PG 29.0 mmHg ESV 2D 71.6 cm3 AV VTI 64.1 cm LA Dimen 2D 4.0 2.3 - 4.0 cm AI Peak PG 47.7 mmHg LVOT Diam 1.8 cm AI Peak Israel 3.5 m/sec AI PHT 298.5 msec LVOT Mean Israel 0.6 m/sec LVOT Mean PG 1.7 mmHg LVOT Peak [place] 1.0 m/sec LVOT Peak PG 3.7 mmHg LVOT VTI 22.0 cm TR Peak [place] 3.3 m/sec TR Peak PG 45.3 mmHg RVSP 53.0 mmHg Findings Left Ventricle: Normal left ventricular cavity size. Mild concentric left ventricular hypertrophy. Moderate left ventricular systolic dysfunction. Ejection fraction is visually estimated at 3035 %. These segments of the LV are hypokinetic apical septum, apex, mid septum segment, inferior mid segment and inferior apex segment. Right Ventricle: Normal right ventricular size. Normal right ventricular systolic function. Pacemaker right heart. Left Atrium: The left atrium is normal in size. Right Atrium: The right atrium is normal in size. Mitral Valve: Mild mitral leaflet calcification. Mild mitral annular calcification. Mild to moderate mitral valve regurgitation. Aortic Valve: Moderate aortic stenosis. Aortic valve Max velocity 2.69 m/sec. Max PG 29.00 mmHg. Mean PG 15.50 mmHg. Aortic cusps appear moderately calcified. Moderate aortic valve regurgitation. Tricuspid Valve: Normal appearance of the tricuspid valve. Estimated peak PA systolic pressure 53 mmHg. There is moderate to severe tricuspid regurgitation. Pulmonic Valve: Normal pulmonic valve appearance. There is mild to moderate pulmonic regurgitation. Pericardium: Normal pericardium with no significant pericardial effusion. Aorta: Normal aortic root. IVC: Normal size and no respiratory collapse consistent with elevated right atrial pressure. Conclusions 1.Normal left ventricular cavity size. Mild concentric left ventricular hypertrophy. Moderate left ventricular systolic dysfunction. Ejection fraction is visually estimated at 30-35 %. Normal right ventricular size. Normal right ventricular systolic function. Pacemaker right heart. 2.Mild to moderate mitral valve regurgitation. 3.Normal appearance of the tricuspid valve. Estimated peak PA systolic pressure 53 mmHg. There is moderate to severe tricuspid regurgitation. 4.Moderate aortic stenosis. Mean PG 15.50 mmHg. Aortic cusps appear moderately calcified. Moderate aortic valve regurgitation. 5.Normal pulmonic valve appearance. There is mild to moderate pulmonic regurgitation. Electronically Signed By: Yi Benson 03-Jul-2016 19:17:11 -0700 Patient Name: MOIRA VILLAGOMEZ Study Date: 03-Jul-2016 [id number]
[2016-07-03] MEDS: ATORVASTATIN 80 MG TAB PO SCH (20:31)
[2016-07-04] VITALS (8 sets, daily range): BP systolic 109–127; BP diastolic 48–69; PULSE 69–74; RESP 18–20
[2016-07-04 01:26] LABS: CREATINE KINASE < 20 IU/L (23-200)
[2016-07-04 01:36] LABS: CK-MB 1.01 ng/ml (0.0-2.4)
[2016-07-04 01:52] LABS: TROPONIN-I < 0.012 ng/ml (0.00-0.12)
[2016-07-04] MEDS: ACCU-CHEK XX SCH (02:00)
[2016-07-04] MEDS: HYDROmorphONE 1 MG/ML SYG IV PRN ×2 (04:15→19:33)
[2016-07-04 05:01] LABS: BASOPHILS % 0.5 % (0.0-2.0); EOSINOPHILS # 0.2 10^3/ul (0.0-0.5); EOSINOPHILS % 2.1 % (0.0-7.0); HEMOGLOBIN 10.7 g/dl (12.0-16.0); LYMPHOCYTES # 1.5 10^3/ul (0.8-2.9); LYMPHOCYTES % 19.3 % (15.0-51.0); MEAN CORPUSCULAR HEMOGLOBIN 31.8 pg (29.0-33.0); MEAN CORPUSCULAR HGB CONC 30.6 g/dl (32.0-37.0); MEAN CORPUSCULAR VOLUME 103.9 fl (82.0-101.0); MEAN PLATELET VOLUME 9.6 fl (7.4-10.4); MONOCYTE # 0.7 10^3/ul (0.3-0.9); MONOCYTES % 9.2 % (0.0-11.0); NEUTROPHIL # 5.2 10^3/ul (1.6-7.5); NEUTROPHILS % 68.5 % (39.0-77.0); NUCLEATED RED BLOOD CELLS% 0.3 /100WBC (0.0-0.0); PLATELET COUNT 126 10^3/UL (140-415); RED BLOOD COUNT 3.37 10^6/ul (4.20-5.40); WHITE BLOOD COUNT 7.7 10^3/ul (4.8-10.8)
[2016-07-04 05:02] LABS: ADD SCAN DIFF NO
[2016-07-04 05:19] LABS: POTASSIUM 4.2 mmol/L (3.5-5.1)
[2016-07-04 05:21] LABS: CREATININE 4.05 mg/dl (0.44-1.00)
[2016-07-04 05:22] LABS: CALCIUM 8.2 mg/dl (8.4-10.2); PHOSPHORUS 6.6 mg/dl (2.5-4.9)
[2016-07-04 05:23] LABS: MAGNESIUM 2.4 mg/dl (1.7-2.5)
[2016-07-04 05:36] LABS: CHOL/HDL RATIO 2.2 RATIO
[2016-07-04] MEDS: PANTOPRAZOLE (EC) 40 MG TAB PO SCH ×2 (07:20→09:20)
[2016-07-04] MEDS: LEVOTHYROXINE 88 MCG TAB PO SCH ×2 (07:20→09:19)
[2016-07-04] MEDS: REPAGLINIDE 1 MG TAB PO SCH ×4 (07:30→17:30)
[2016-07-04] MEDS: SEVELAMER CARBONATE 0.8 GM PKT PO SCH ×4 (07:50→17:39)
[2016-07-04] MEDS: INSULIN ASPART [NOVOLOG] 3 ML PEN SC SCH ×5 (07:50→21:00)
[2016-07-04 07:51] LABS: ALBUMIN 3.4 g/dl (3.3-4.9); TOTAL PROTEIN 5.9 g/dl (6.1-8.1)
[2016-07-04] MEDS: METOPROLOL (XL) 25 MG TAB PO SCH ×2 (09:00→09:21)
[2016-07-04] MEDS: GABAPENTIN 100 MG CAP PO SCH ×2 (09:00→09:20)
[2016-07-04] MEDS: FERROUS SULFATE (EC) 325 MG TAB PO SCH ×2 (09:00→09:20)
[2016-07-04] MEDS: ESCITALOPRAM 10 MG TAB GTB SCH ×2 (09:00→09:19)
[2016-07-04] MEDS: MULTIVIT/CA CARB/B CMPLX/FA TAB PO SCH ×2 (09:00→09:20)
[2016-07-04] MEDS: POLYETHYLENE GLYCOL 17 GM PACKET PO SCH ×2 (09:00→09:20)
--- NOTE | 2016-07-04 10:26 | PN ---
DATE: 07/04/2016 SUBJECTIVE: The patient is stable, no acute events overnight. I spoke today with the surgeon, Dr. Maria. Plan for surgery tomorrow. No other events noted. OBJECTIVE: VITAL SIGNS: Blood pressure 127/61, respirations 20, pulse 70, temperature 98.0. HEENT: Head is normocephalic. NECK: Supple. HEART: Regular rate. LUNGS: Show diminished breath sounds at the base. ABDOMEN: Soft, nontender to palpation. No rebound or guarding. EXTREMITIES: Negative for clubbing, cyanosis, no edema. DERMATOLOGIC: No rashes. MUSCULOSKELETAL: No joint effusions. NEUROLOGIC: No change in exam. MEDICATIONS: Reviewed. LABORATORY DATA: Shows white count 7.7, hemoglobin 10.7, hematocrit 35.0, platelet count is 126. S odium 139, potassium 4.2, chloride 98, BUN 37, creatinine 1.05, phosphorus 6.6, calcium 8.2. ASSESSMENT AND PLAN: 1. Right hip fracture secondary to mechanical fall. The patient was seen by an orthopedist, Dr. Maria . Plan for surgery tomorrow, has been cleared by marble mason, Dr. Benson. 2. End-stage renal disease. The patient had hemodialysis yesterday, tolerated well. Plan for dial ysis again today prior to surgery. 3. Hypokalemia, resolved. 4. Hyponatremia, resolved. 5. Hypertension. Continue current blood pressure regimen. Continue ultrafiltration dialysis. 6. Diabetes. Continue Accu-Cheks and insulin sliding scale. 7. Cardiomyopathy, coronary artery disease. Continue current medical management. 8. Peripheral vascular disease status post right lower extremity fem-pop. 9. Hypothyroidism. Continue Synthroid. 10. Diabetes, continue Accu-Cheks and sliding scale. 11. GI and Deep vein thrombosis prophylaxis. Continue PPIs, sequential leg squeezers. Dictated By: BRANDI CHANEY/NTS Conf#: [id number] DID#: [id number]
--- NOTE | 2016-07-04 13:58 | CONS ---
Date/Time of Note Date/Time of Note DATE: 07/04/16 TIME: 13:57 Assessment/Plan Assessment/Plan Additional Assessment/Plan . Preoperative evaluation prior to open reduction internal fixation of the right hip- surgery planned with Dr. Maria. 2. History of cardiomyopathy with decreased left ventricular ejection fraction , last known to be approximately 35% by echo February 2016 with a negative stress February 2016, revealing scar but no ischemia. 3. History of permanent pacemaker implantation for bradyarrhythmias- rate controlled now. 4. History of coronary artery disease, status post coronary bypass graft surgery. 5. Peripheral arterial disease status post relatively recent lower extremity bypass surgery. 6. End-stage renal disease on hemodialysis- HD now. 7. Diabetes mellitus. 8. Thyroid dysfunction. 9. Cardiomyopathy with decreased left ventricular ejection fraction. 10. Status post fall. 11. Hip fracture. Consultation Date/Type/Reason Admit Date/Time Jul 02, 2016 at 16:48 Initial Consult Date 24 HR Interval Summary Free Text/Dictation Plan for surgery - pacerwith good Fxn. HD now, ROS: No fever, no chills, no nausea, no vomiting, no diarrhea/constipation No recent weight changes No chest pain, no PND, no orthopnea No dizziness, blurred vision No thirst, no heat or cold intolerance Exam/Review of Systems Vital Signs Vitals Vital Signs Date Time Temp Pulse Resp B/P Pulse Ox O2 Delivery O2 Flow Rate FiO2 07/04/16 13:00 69 07/04/16 12:00 18 07/04/16 08:30 98.0 127/61 97 07/03/16 20:00 Nasal Cannula 2.0 Intake and Output 07/03/16 07/03/16 07/04/16 15:00 23:00 07:00 Intake Total 750 ml 520 ml 100 ml Output Total 1600 ml 1300 ml Balance -850 ml -780 ml 100 ml Exam General: WN/WD/NAD, AOx 203 HEENT: Unicetric/atraumatic/EOMI (follow commands) NECK: JVD elevated, no thyromegaly Lymph: no lymphadenopathy HEART: regular with no S3, II/ systolic murmur at apex LUNGS: Coarse sounds ABD: soft, NT, ND, +BS : Intact Neuro: non focal SKIN: chronic changes EXT: trace edema Results Result Diagram: 07/04/1642907/04/16 043 Results 24 hrs Laboratory Tests Test 07/03/16 17:47 07/03/16 18:00 07/03/16 20:35 07/04/16 00:25 Bedside Glucose 155 191 Creatine Kinase 21 L < 20 L Creatine Kinase Index 4.8 Creatinine Kinase MB (Mass) 1.00 1.01 Troponin I < 0.012 < 0.012 Test 07/04/16 02:21 07/04/16 04:30 07/04/16 07:51 07/04/16 11:54 Bedside Glucose 165 151 225 H White Blood Count 7.7 Red Blood Count 3.37 L Hemoglobin 10.7 L Hematocrit 35.0 L Mean Corpuscular Volume 103.9 H Mean Corpuscular Hemoglobin 31.8 Mean Corpuscular Hemoglobin Concent 30.6 L Red Cell Distribution Width 16.0 H Platelet Count 126 #L Mean Platelet Volume 9.6 Neutrophils % 68.5 Lymphocytes % 19.3 Monocytes % 9.2 Eosinophils % 2.1 Basophils % 0.5 Nucleated Red Blood Cells % 0.3 H Neutrophils # 5.2 Lymphocytes # 1.5 Monocytes # 0.7 Eosinophils # 0.2 Basophils # 0.0 Nucleated Red Blood Cells # 0.0 Sodium Level 139 Potassium Level 4.2 Chloride Level 98 Carbon Dioxide Level 28 Anion Gap 17 H Blood Urea Nitrogen 37 #H Creatinine 4.05 H Glucose Level 169 Calcium Level 8.2 L Phosphorus Level 6.6 H Magnesium Level 2.4 Total Bilirubin 0.0 L Direct Bilirubin 0.00 Indirect Bilirubin 0.0 Aspartate Amino Transf (AST/SGOT) 160 H Alanine Aminotransferase (ALT/SGPT) 318 H Alkaline Phosphatase 203 H Total Protein 5.9 L Albumin 3.4 Triglycerides Level 105 Cholesterol Level 98 L LDL Cholesterol, Calculated 34 HDL Cholesterol 43 Cholesterol/HDL Ratio 2.2 Medications Medications Current Medications Hydromorphone HCl (Dilaudid) 0.5 mg Q6H PRN IV PAIN Last administered on 04:15; Admin Dose 0.5 MG; Start 07/02/16 at 23:00 Hydralazine HCl (Apresoline) 50 mg TID PO Last administered on 07/04/16 09:23 ; Admin Dose 50 MG; Start 07/03/16 at 09:00 Atorvastatin Calcium (Lipitor) 80 mg DAILY@21 PO Last administered on 20:31; Admin Dose 80 MG; Start 07/03/16 at 21:00 Ferrous Sulfate (Ferrous Sulfate (Ec)) 325 mg DAILY PO Last administered on 09:20; Admin Dose 325 MG; Start 07/03/16 at 09:00 Escitalopram Oxalate (Lexapro) 10 mg DAILY GTB Last administered on 07/04/16 09:19; Admin Dose 10 MG; Start 07/03/16 at 09:00 Polyethylene Glycol (Miralax) 17 gm DAILY PO Last administered on 07/04/16 09: 20; Admin Dose 17 GM; Start 07/03/16 at 09:00 Multivit/Ca Carb/ B Cmplx/FA/Prenat ([place]-Roge) 1 tab DAILY PO Last administered on 07/04/16 09:20; Admin Dose 1 TAB; Start 07/03/16 at 09:00 Metoprolol Succinate (Toprol Xl) 25 mg DAILY PO Last administered on 07/04/16 09:21; Admin Dose 25 MG; Start 07/03/16 at 09:00 Gabapentin (Neurontin) 100 mg DAILY PO Last administered on 07/04/16 09:20; Admin Dose 100 MG; Start 07/03/16 at 09:00 Miscellaneous Information 1 ea NOTE XX ; Start 07/02/16 at 23:45 Glucose (Glutose) 15 gm Q15M PRN PO DECREASED GLUCOSE; Start 07/02/16 at 23:45 Glucose (Glutose) 22.5 gm Q15M PRN PO DECREASED GLUCOSE; Start 07/02/16 at 23: 45 Dextrose (D50w Syringe) 25 ml Q15M PRN IV DECREASED GLUCOSE; Start 07/02/16 at 23:45 Dextrose (D50w Syringe) 50 ml Q15M PRN IV DECREASED GLUCOSE; Start 07/02/16 at 23:45 Glucagon (Glucagen) 1 mg Q15M PRN IM DECREASED GLUCOSE; Start 07/02/16 at 23:45 Glucose (Glutose) 15 gm Q15M PRN BUCCAL DECREASED GLUCOSE; Start 07/02/16 at 23 :45 Diagnostic Test (Pha) (Accu-Chek) 1 ea 02 XX ; Start 07/03/16 at 02:00 PEDRO LUIS HUTTON MD Jul 04, 2016 13:58
[2016-07-04] MEDS: EPOETIN 10000 UNITS/1 ML INJ (ESRD) SC SCH (14:43)
[2016-07-04] MEDS: ATORVASTATIN 80 MG TAB PO SCH (21:15)
--- NOTE | 2016-07-04 22:09 | RADRPT ---
Vent Rate: 69 bpm RR Interval: 0 msec CA Interval: 166 msec QRS Duration: 192 msec QT Interval: 494 msec QTC Interval: 529 msec P-R-T [place]: 62 - -61 - 117 degrees Electronic ventricular pacemaker Electronically Signed By: Jet Trujillo [id number]
[2016-07-05] VITALS (34 sets, daily range): BP systolic 117–161; BP diastolic 42–70; PULSE 68–81; RESP 14–20
[2016-07-05] MEDS: ACCU-CHEK XX SCH (02:36)
[2016-07-05] MEDS: HYDROmorphONE 1 MG/ML SYG IV PRN ×3 (02:53→21:26)
[2016-07-05 05:08] LABS: ADD SCAN DIFF NO
[2016-07-05 05:18] LABS: ABNORMAL IP MESSAGE 1; BASOPHILS % 0.2 % (0.0-2.0); EOSINOPHILS # 0.1 10^3/ul (0.0-0.5); EOSINOPHILS % 1.7 % (0.0-7.0); HEMATOCRIT 35.6 % (37.0-47.0); HEMOGLOBIN 10.2 g/dl (12.0-16.0); LYMPHOCYTES # 1.1 10^3/ul (0.8-2.9); LYMPHOCYTES % 13.5 % (15.0-51.0); MEAN CORPUSCULAR HEMOGLOBIN 30.5 pg (29.0-33.0); MEAN CORPUSCULAR HGB CONC 28.7 g/dl (32.0-37.0); MEAN CORPUSCULAR VOLUME 106.6 fl (82.0-101.0); MEAN PLATELET VOLUME 10.1 fl (7.4-10.4); MONOCYTE # 0.8 10^3/ul (0.3-0.9); NEUTROPHIL # 6.1 10^3/ul (1.6-7.5); NEUTROPHILS % 74.4 % (39.0-77.0); NUCLEATED RED BLOOD CELLS% 0.2 /100WBC (0.0-0.0); PLATELET COUNT 116 10^3/UL (140-415); RED BLOOD COUNT 3.34 10^6/ul (4.20-5.40); RED CELL DISTRIBUTION WIDTH 15.8 % (11.5-14.5); WHITE BLOOD COUNT 8.3 10^3/ul (4.8-10.8)
[2016-07-05 05:20] LABS: POTASSIUM 3.8 mmol/L (3.5-5.1)
[2016-07-05 05:23] LABS: CREATININE 4.12 mg/dl (0.44-1.00); PHOSPHORUS 6.2 mg/dl (2.5-4.9)
[2016-07-05 05:24] LABS: CALCIUM 8.3 mg/dl (8.4-10.2); MAGNESIUM 2.4 mg/dl (1.7-2.5)
[2016-07-05] MEDS ORDERED: POLYMYXIN/BACITRACIN 1L IRRIG ONE (07:06)
[2016-07-05] MEDS: PANTOPRAZOLE (EC) 40 MG TAB PO SCH (07:20)
[2016-07-05] MEDS: LEVOTHYROXINE 88 MCG TAB PO SCH (07:20)
[2016-07-05] MEDS: REPAGLINIDE 1 MG TAB PO SCH ×2 (07:30→11:30)
[2016-07-05] MEDS ORDERED: PROPOFOL 20 ML ONE (07:35)
[2016-07-05] MEDS ORDERED: ROCURONIUM 50 MG INJ ONE (07:35)
[2016-07-05] MEDS ORDERED: LIDOCAINE 2% (SDV) 5 ML INJ ONE (07:35)
[2016-07-05] MEDS ORDERED: SUCCINYLCHOLINE CHLORIDE 100 MG/5 ML SYG IV ONE (07:35)
[2016-07-05] MEDS ORDERED: GLYCOPYRROLATE 1 MG INJ ONE (07:35)
--- NOTE | 2016-07-05 07:35 | HPN ---
Date/Time of Note Date/Time of Note DATE: 07/05/16 TIME: 07:35 Interval H&P Admission Note Pt. seen H&P reviewed: No system changes AUSTIN COLE MD Jul 05, 2016 07:35
[2016-07-05] MEDS ORDERED: MEPERIDINE 100 MG INJ ONE (07:36)
[2016-07-05] MEDS ORDERED: NEOSTIGMINE 3 MG/3 ML SYRINGE ONE (07:36)
[2016-07-05] MEDS: SEVELAMER CARBONATE 0.8 GM PKT PO SCH ×3 (07:39→17:30)
[2016-07-05] MEDS: INSULIN ASPART [NOVOLOG] 3 ML PEN SC SCH ×4 (07:40→21:21)
[2016-07-05 07:50] LABS: ALBUMIN 3.5 g/dl (3.3-4.9)
[2016-07-05] MEDS ORDERED: CEFAZOLIN 1 GM INJ ONE (07:51)
[2016-07-05 07:53] LABS: BILIRUBIN,INDIRECT 0.1 mg/dl (0-1.1); BILIRUBIN,TOTAL 0.1 mg/dl (0.2-1.3); TOTAL PROTEIN 6.5 g/dl (6.1-8.1)
[2016-07-05] MEDS ORDERED: MIDAZOLAM 1 MG/ML 2 ML INJ IV PRN (09:00)
[2016-07-05] MEDS: MULTIVIT/CA CARB/B CMPLX/FA TAB PO SCH ×2 (09:00→13:17)
[2016-07-05] MEDS ORDERED: MEPERIDINE 25 MG INJ IV PRN (09:00)
[2016-07-05] MEDS: POLYETHYLENE GLYCOL 17 GM PACKET PO SCH (09:00)
[2016-07-05] MEDS ORDERED: hydrALAzine 20 MG INJ IV PRN (09:00)
[2016-07-05] MEDS ORDERED: HYDROmorphONE (0.2 MG/ML) 10ML SYG IV PRN ×2 (09:00)
[2016-07-05] MEDS ORDERED: METOCLOPRAMIDE 10 MG INJ IV PRN (09:00)
[2016-07-05] MEDS ORDERED: ONDANSETRON 4 MG INJ IV PRN (09:00)
[2016-07-05] MEDS ORDERED: DIPHENHYDRAMINE 50 MG INJ IV PRN (09:00)
[2016-07-05] MEDS: GABAPENTIN 100 MG CAP PO SCH ×2 (09:00→13:17)
[2016-07-05] MEDS: FERROUS SULFATE (EC) 325 MG TAB PO SCH ×2 (09:00→13:18)
[2016-07-05] MEDS: ESCITALOPRAM 10 MG TAB GTB SCH ×2 (09:00→13:16)
[2016-07-05] MEDS ORDERED: FENTAnyl 50 MCG/ML VIAL IV PRN ×2 (09:00)
[2016-07-05] MEDS ORDERED: LABETALOL HCL 20MG INJ IV PRN (09:00)
[2016-07-05] MEDS: METOPROLOL (XL) 25 MG TAB PO SCH ×2 (09:00→13:19)
[2016-07-05] MEDS ORDERED: EPHEDrine SULFATE 50 MG/5 ML SYG IV PRN (09:00)
[2016-07-05] MEDS ORDERED: morphine (1 MG/ML) 10ML SYRINGE IV PRN ×2 (09:00)
[2016-07-05] MEDS ORDERED: D5W-0.45 NACL + KCL 20 MEQ 1,000 ML IV SCH (09:30)
[2016-07-05] MEDS ORDERED: NACL 0.9% 3 ML SYG IV SCH (09:30)
[2016-07-05 10:20] LABS: HEMOGLOBIN 10.5 g/dl (12.0-16.0)
--- NOTE | 2016-07-05 10:40 | PN ---
DATE: 07/05/2016 SUBJECTIVE: The patient is stable. The patient will be scheduled for surgery this morning. No oth er events noted. No hemoptysis, hematemesis or hematochezia. OBJECTIVE: VITAL SIGNS: Blood pressure is 115/55, respiration 18, pulse 68, temperature 98.0. HEENT: Head is normocephalic. NECK: Supple. HEART: Regular rate. LUNGS: Show diminished breath sounds at the base. ABDOMEN: Soft, nontender to palpation without rebound or guarding. EXTREMITIES: Negative for clubbing, cyanosis, no edema. DERMATOLOGIC: No rashes. MUSCULOSKELETAL: No joint effusions. NEUROLOGIC: No change in exam. MEDICATIONS: Reviewed. LABORATORY DATA: Showed sodium 137, potassium 3.8, BUN 27, creatinine 4.12. Phosphorus 6.2, calciu m 8.3. White count 8.3, hemoglobin 10.2, hematocrit 35.6, platelet count is 116. ASSESSMENT AND PLAN: 1. Right hip fracture secondary to mechanical fall. The patient is pending ORIF by Dr. Maria today. 2. End-stage renal disease. The patient had hemodialysis yesterday, tolerated well, anticipate nex t dialysis in next 1 to 2 days. 3. Hypertension. Continue current blood pressure regimen. 4. Diabetes. Continue Accu-Cheks and sliding scale. 5. Cardiomyopathy, coronary artery disease. Continue current medical management. 6. History of peripheral vascular disease, status post fem-pop. 7. Hypothyroidism. Continue Synthroid. 8. Gastrointestinal and deep venous thrombosis prophylaxis. Continue proton pump inhibitor and seq uential leg squeezers. 9. Mineral bone disorder, monitor calcium and phosphorus levels. Continue phosphate binders. Dictated By: BRANDI CHANEY/ANA Conf#: [id number] DID#: [id number]
[2016-07-05] MEDS: CEFAZOLIN 1 GM/50 ML (PMX) 50 ML IVPB SCH ×2 (10:43→17:30)
[2016-07-05 10:53] LABS: POTASSIUM 3.9 mmol/L (3.5-5.1)
[2016-07-05 10:56] LABS: CREATININE 4.41 mg/dl (0.44-1.00)
[2016-07-05 10:57] LABS: CALCIUM 8.2 mg/dl (8.4-10.2)
[2016-07-05] MEDS: ENOXAPARIN 40 MG/0.4 ML SYG SC SCH (11:00)
--- NOTE | 2016-07-05 11:02 | RADRPT ---
PROCEDURE: XR Pelvis. CLINICAL INDICATION: This was right hip replacement. TECHNIQUE: Single AP view of the pelvis. COMPARISON: No prior studies are available for comparison. FINDINGS: Right hip replacement is identified. The prosthetic components are in appropriate position and alig nment. Diffuse osteopenia is seen. The osseous structures appear intact.. No destructive bony les ions are observed. Moderate narrowing of the left hip joint is observed. Catheter is seen over the lower pelvis. Vascular calcifications are seen in the pelvis in both eyes. Soft tissue air over t he right hip is procedural in nature. IMPRESSION: Right hip replacement. Prosthetic components are in appropriate position and alignment. Moderate osteoarthritis of the left hip. Osteopenia. Vascular calcifications. RPTAT: AA .Raghu Brown MD, MD Date Time Electronically viewed and signed by .Raghu Brown MD, MD on 07/05/2016 11:01 .P/
--- NOTE | 2016-07-05 11:13 | OPR ---
DATE OF OPERATION: 07/05/2016 PREOPERATIVE DIAGNOSIS: Femoral neck fracture of the right hip. POSTOPERATIVE DIAGNOSIS: Femoral neck fracture of the right hip. OPERATION PERFORMED: Hemiarthroplasty of the right hip. ANESTHESIA: General anesthesia. SURGEON: Stephanie Maria MD PROCEDURE AND FINDINGS: Under general anesthesia, the patient was placed on left lateral decubitus position with the right side up. Usual prep and drape was done exposing the right hip and right low er extremity. Right hip was approached through the posterolateral oblique incision. After splittin g gluteal muscles and detaching short external rotator, the right hip was entered. An obvious fract ure was identified. Head was removed and the measurement revealed that the size of the head is abou t 43 mm in diameter. After cleaning acetabular cavity, trial reduction was carried out with bipolar trial cup in the size of 43 mm and the fitting and the stability was entirely satisfactory. After packing the acetabular cavity with the Ray-Torri sponges, attention was then directed to the proximal femur. Following initial preparation with box osteotome and T-handled reamer, further preparation w as carried out with increasing size of broaches. With the size 4 broach in, trial components were a ssembled and the joint was reduced and tested. After several trials, my feeling was that the size 4 stem in a high-offset setting with the +4 neck along with the 43 mm cup was providing best fitting in the stability and proper length. After removing all the trial components, actual stem in the siz e 4 in a high-offset setting was inserted and this was connected to +4 neck, 43 mm bipolar cup. The joint was reduced and the range of motion and the stability was entirely satisfactory. Gross evalu ation of the leg length also seems to be satisfactory. After reattaching short external rotators and closing capsules, further closure was carried out usin pete #2 Vicryl for muscle and fascia and 2-0 Vicryl for subcutaneous tissues. Final skin closure was c arried out with skin j carlos. The usual sterile pressure dressings were applied. The patient tolerated the entire procedure very well and was sent to the recovery room in excellent condition. Dictated By: STEPHANIE GREEN/ANA Conf#: [id number] DID#: [id number]
[2016-07-05] MEDS: REPAGLINIDE 2 MG TAB PO SCH (17:54)
--- NOTE | 2016-07-05 18:21 | CONS ---
Date/Time of Note Date/Time of Note DATE: 07/05/16 TIME: 18:19 Assessment/Plan Assessment/Plan Chief Complaint/Hosp Course IMPRESSION: 1. Preoperative evaluation prior to open reduction internal fixation of the right hip.-negative troponin x 3. NO POD#0 s/p Hip ORIF 2. History of cardiomyopathy with decreased left ventricular ejection fraction , last known to be approximately 35% by echo February 2016 with a negative stress February 2016, revealing scar but no ischemia. Echo this admit EF 30-35% 3. History of permanent pacemaker implantation for bradyarrhythmias. 4. History of coronary artery disease, status post coronary bypass graft surgery. 5. Peripheral arterial disease status post relatively recent lower extremity bypass surgery. 6. End-stage renal disease on hemodialysis. 7. Diabetes mellitus. 8. Thyroid dysfunction. 9. Cardiomyopathy with decreased left ventricular ejection fraction. 10. Status post fall. 11. Hip fracture. Recc: -Check post-op ecg -Continue metoprolol/hydralazine/statin -Pain contyrol -Follow volume status closely Problems: Consultation Date/Type/Reason Admit Date/Time Jul 02, 2016 at 16:48 Initial Consult Date 07/03/2016 Type of Consultation: Cardiology Reason for Consultation Pre-op/cardiomyopathy Referring Provider: BRANDI ERICKSON DO Exam/Review of Systems Vital Signs Vitals Vital Signs Date Time Temp Pulse Resp B/P Pulse Ox O2 Delivery O2 Flow Rate FiO2 07/05/16 17:30 98.3 70 18 125/64 99 Nasal Cannula 3.0 Intake and Output 07/04/16 07/04/16 07/05/16 15:00 23:00 07:00 Intake Total 400 ml 840 ml 360 ml Output Total 2400 ml 0 ml Balance -2000 ml 840 ml 360 ml Exam Review of Systems: CONSTITUTIONAL: No fevers, chills. PULMONARY: No sob CARDIOVASCULAR: No chest pain/palpitations GASTROINTESTINAL: No nausea/vomiting. GENITOURINARY: No hematuria/dysuria. MUSCULOSKELETAL: pain in hip at surgical site PSYCHIATRIC: The patient denies depression. NEUROLOGIC: No weakness Constitutional: alert, oriented Psych: no complaints Head: normocephalic ENMT: mucosa pink and moist Neck: jvd (9 cm water), supple Respiratory: diminished breath sounds (at bases/B) Cardiovascular: regular rate and rhythm Gastrointestinal: non-tender, soft Musculoskeletal: muscle weakness (generalized), other (Hip covered by dressing) Extremities: edema (none) Neurological: other (No focal deficits) Results Result Diagram: 07/05/16 1000 07/05/16 1000 Results 24 hrs Laboratory Tests Test 07/04/16 21:11 07/05/16 02:23 07/05/16 04:40 07/05/16 09:43 Bedside Glucose 221 H 204 190 White Blood Count 8.3 Red Blood Count 3.34 L Hemoglobin 10.2 L Hematocrit 35.6 L Mean Corpuscular Volume 106.6 H Mean Corpuscular Hemoglobin 30.5 Mean Corpuscular Hemoglobin Concent 28.7 L Red Cell Distribution Width 15.8 H Platelet Count 116 L Mean Platelet Volume 10.1 Neutrophils % 74.4 Lymphocytes % 13.5 L Monocytes % 10.0 Eosinophils % 1.7 Basophils % 0.2 Nucleated Red Blood Cells % 0.2 H Neutrophils # 6.1 Lymphocytes # 1.1 Monocytes # 0.8 Eosinophils # 0.1 Basophils # 0.0 Nucleated Red Blood Cells # 0.0 Sodium Level 137 Potassium Level 3.8 Chloride Level 97 Carbon Dioxide Level 28 Anion Gap 16 Blood Urea Nitrogen 27 H Creatinine 4.12 H Glucose Level 181 Calcium Level 8.3 L Phosphorus Level 6.2 H Magnesium Level 2.4 Total Bilirubin 0.1 L Direct Bilirubin 0.00 Indirect Bilirubin 0.1 Aspartate Amino Transf (AST/SGOT) 85 H Alanine Aminotransferase (ALT/SGPT) 267 H Alkaline Phosphatase 174 H Total Protein 6.5 Albumin 3.5 Test 07/05/16 10:00 07/05/16 13:09 07/05/16 17:29 Hemoglobin 10.5 L Hematocrit 35.0 L Sodium Level 137 Potassium Level 3.9 Chloride Level 97 Carbon Dioxide Level 23 Anion Gap 21 H Blood Urea Nitrogen 29 H Creatinine 4.41 H Glucose Level 189 Calcium Level 8.2 L Bedside Glucose 222 H 241 H Medications Medications Current Medications Hydromorphone HCl (Dilaudid) 0.5 mg Q6H PRN IV PAIN Last administered on 02:53; Admin Dose 0.5 MG; Start 07/02/16 at 23:00 Hydralazine HCl (Apresoline) 50 mg TID PO Last administered on 07/05/16 13:18 ; Admin Dose 50 MG; Start 07/03/16 at 09:00 Atorvastatin Calcium (Lipitor) 80 mg DAILY@21 PO Last administered on 21:15; Admin Dose 80 MG; Start 07/03/16 at 21:00 Ferrous Sulfate (Ferrous Sulfate (Ec)) 325 mg DAILY PO Last administered on 13:18; Admin Dose 325 MG; Start 07/03/16 at 09:00 Escitalopram Oxalate (Lexapro) 10 mg DAILY GTB Last administered on 07/05/16 13:16; Admin Dose 10 MG; Start 07/03/16 at 09:00 Polyethylene Glycol (Miralax) 17 gm DAILY PO Last administered on 07/04/16 09: 20; Admin Dose 17 GM; Start 07/03/16 at 09:00 Multivit/Ca Carb/ B Cmplx/FA/Prenat (Billie-Roge) 1 tab DAILY PO Last administered on 07/05/16 13:17; Admin Dose 1 TAB; Start 07/03/16 at 09:00 Metoprolol Succinate (Toprol Xl) 25 mg DAILY PO Last administered on 07/05/16 13:19; Admin Dose 25 MG; Start 07/03/16 at 09:00 Gabapentin (Neurontin) 100 mg DAILY PO Last administered on 07/05/16 13:17; Admin Dose 100 MG; Start 07/03/16 at 09:00 Miscellaneous Information 1 ea NOTE XX ; Start 07/02/16 at 23:45 Glucose (Glutose) 15 gm Q15M PRN PO DECREASED GLUCOSE; Start 07/02/16 at 23:45 Glucose (Glutose) 22.5 gm Q15M PRN PO DECREASED GLUCOSE; Start 07/02/16 at 23: 45 Dextrose (D50w Syringe) 25 ml Q15M PRN IV DECREASED GLUCOSE; Start 07/02/16 at 23:45 Dextrose (D50w Syringe) 50 ml Q15M PRN IV DECREASED GLUCOSE; Start 07/02/16 at 23:45 Glucagon (Glucagen) 1 mg Q15M PRN IM DECREASED GLUCOSE; Start 07/02/16 at 23:45 Glucose (Glutose) 15 gm Q15M PRN BUCCAL DECREASED GLUCOSE; Start 07/02/16 at 23 :45 Diagnostic Test (Pha) (Accu-Chek) 1 ea 02 XX Last administered on 07/05/16 02: 36; Admin Dose 1 EA; Start 07/03/16 at 02:00 Acetaminophen/ Hydrocodone Bitart ([place] (5/325)) 1 tab Q4H PRN PO PAIN LEVEL 1 -3; Start 07/05/16 at 09:30 Acetaminophen/ Hydrocodone Bitart ([place] (5/325)) 2 tab Q4H PRN PO PAIN LEVEL 4 -7; Start 07/05/16 at 09:30 Hydromorphone HCl 1 mg 1 mg Q3H PRN IV PAIN LEVEL 8-10 Last administered on 13:58; Admin Dose 1 MG; Start 07/05/16 at 09:30 Cefazolin Sodium (Ancef 1 Gm/50 ml (Pmx)) 50 ml @ 100 mls/hr Q8H IVPB Last administered on 07/05/16 17:30; Admin Dose 100 MLS/HR; Start 07/05/16 at 09:30 ; Stop 07/06/16 at 01:59 Enoxaparin Sodium (Lovenox) 40 mg DAILY SC ; Start 07/05/16 at 11:00 YI RODRIGUEZ Jul 05, 2016 18:21
[2016-07-05] MEDS: ONDANSETRON 4 MG INJ IV PRN (19:08)
[2016-07-05] MEDS ORDERED: SOD CHLORIDE 0.9% 1,000 ML IV SCH (19:30)
[2016-07-05] MEDS: ATORVASTATIN 80 MG TAB PO SCH (20:34)
[2016-07-06] VITALS (10 sets, daily range): BP systolic 110–135; BP diastolic 47–77; PULSE 70–79; RESP 16–20
[2016-07-06] MEDS: CEFAZOLIN 1 GM/50 ML (PMX) 50 ML IVPB SCH (01:30)
[2016-07-06] MEDS: ACCU-CHEK XX SCH (02:16)
[2016-07-06] MEDS: HYDROmorphONE 1 MG/ML SYG IV PRN ×3 (03:20→12:35)
[2016-07-06 05:09] LABS: ADD SCAN DIFF NO
[2016-07-06 05:18] LABS: BASOPHILS % 0.1 % (0.0-2.0); EOSINOPHILS % 0.2 % (0.0-7.0); HEMATOCRIT 33.1 % (37.0-47.0); HEMOGLOBIN 9.7 g/dl (12.0-16.0); LYMPHOCYTES # 0.7 10^3/ul (0.8-2.9); LYMPHOCYTES % 7.8 % (15.0-51.0); MEAN CORPUSCULAR HEMOGLOBIN 30.9 pg (29.0-33.0); MEAN CORPUSCULAR HGB CONC 29.3 g/dl (32.0-37.0); MEAN CORPUSCULAR VOLUME 105.4 fl (82.0-101.0); MONOCYTE # 0.8 10^3/ul (0.3-0.9); MONOCYTES % 8.9 % (0.0-11.0); NEUTROPHIL # 7.6 10^3/ul (1.6-7.5); NEUTROPHILS % 82.5 % (39.0-77.0); NUCLEATED RED BLOOD CELLS% 0.4 /100WBC (0.0-0.0); PLATELET COUNT 124 10^3/UL (140-415); RED BLOOD COUNT 3.14 10^6/ul (4.20-5.40); RED CELL DISTRIBUTION WIDTH 15.8 % (11.5-14.5); WHITE BLOOD COUNT 9.2 10^3/ul (4.8-10.8)
[2016-07-06 05:36] LABS: CALCIUM 8.2 mg/dl (8.4-10.2); CREATININE 5.2 mg/dl (0.44-1.00); MAGNESIUM 2.4 mg/dl (1.7-2.5); PHOSPHORUS 8.3 mg/dl (2.5-4.9); POTASSIUM 4.6 mmol/L (3.5-5.1)
[2016-07-06] MEDS: PANTOPRAZOLE (EC) 40 MG TAB PO SCH (06:16)
[2016-07-06] MEDS: LEVOTHYROXINE 88 MCG TAB PO SCH (06:16)
[2016-07-06] MEDS: REPAGLINIDE 2 MG TAB PO SCH ×4 (07:30→17:52)
[2016-07-06] MEDS ORDERED: REPAGLINIDE 2 MG TAB PO SCH (07:30)
[2016-07-06] MEDS: SEVELAMER CARBONATE 0.8 GM PKT PO SCH ×4 (07:50→17:52)
[2016-07-06] MEDS: FERROUS SULFATE (EC) 325 MG TAB PO SCH ×2 (08:31→09:00)
[2016-07-06] MEDS: MULTIVIT/CA CARB/B CMPLX/FA TAB PO SCH ×2 (08:31→09:00)
[2016-07-06] MEDS: POLYETHYLENE GLYCOL 17 GM PACKET PO SCH (08:31)
[2016-07-06] MEDS: ESCITALOPRAM 10 MG TAB GTB SCH ×2 (08:32→09:00)
[2016-07-06] MEDS: GABAPENTIN 100 MG CAP PO SCH ×2 (08:32→09:00)
[2016-07-06] MEDS: METOPROLOL (XL) 25 MG TAB PO SCH (08:32)
[2016-07-06] MEDS: INSULIN ASPART [NOVOLOG] 3 ML PEN SC SCH ×4 (08:39→21:00)
[2016-07-06] MEDS: ENOXAPARIN 40 MG/0.4 ML SYG SC SCH (08:40)
--- NOTE | 2016-07-06 10:24 | PN ---
DATE: 07/06/2016 SUBJECTIVE: Yesterday the patient had successful ORIF of right hip. This morning, the patient is co mplaining of pain. She is lethargic but is arousable, able to answer all questions. No other acute events noted. No hemoptysis, hematemesis or hematochezia. OBJECTIVE: VITAL SIGNS: Blood pressure is 135/60, respirations 18, pulse 81, temperature 98.1. HEENT: Head is normocephalic. NECK: Supple. HEART: Regular rate. LUNGS: Show diminished breath sounds at base. ABDOMEN: Soft, nontender to palpation. No rebound or guarding. EXTREMITIES: Negative for clubbing, cyanosis, no edema. DERMATOLOGIC: No rashes. MUSCULOSKELETAL: The patient has dressing over right hip clean, dry, intact. NEUROLOGIC: No focal deficits. MEDICATIONS: Reviewed. LABORATORY DATA: Shows sodium 134, potassium 4.6, chloride 99, BUN 38, creatinine 5.20, calcium 8.2 , phosphorus 8.3. White count 9.2, hemoglobin 9.7, hematocrit ____, platelet count is 124. ASSESSMENT AND PLAN: 1. Right hip fracture secondary to mechanical fall. The patient is status post open reduction inte rnal fixation yesterday, postop day #1. Plan is to continue pain control, continue physical therapy . Deep venous thrombosis prophylaxis with Lovenox. She will follow up with Dr. Maria for further rec ommendations. 2. End-stage renal disease. Plan for hemodialysis tomorrow. 3. Hypertension. Continue current blood pressure regimen. 4. Diabetes. Continue current insulin regimen. 5. Cardiomyopathy/ coronary artery disease. Continue current treatment plan. 6. History of peripheral vascular disease. 7. Chronic pain syndrome. Etiology is postoperative. Continue current pain regimen. 8. Hyperthyroidism. Continue Synthroid. 9. Mineral bone disorder. Continue to monitor calcium and phosphate levels. Continue phos binders. 10. Gastrointestinal and deep venous thrombosis prophylaxis. Continue PPI and Lovenox. Dictated By: BRANDI CHANEY/ANA Conf#: [id number] DID#: [id number]
[2016-07-06] MEDS: ONDANSETRON 4 MG INJ IV PRN (13:03)
[2016-07-06] MEDS: EPOETIN 10000 UNITS/1 ML INJ (ESRD) SC SCH (14:40)
--- NOTE | 2016-07-06 17:27 | RADRPT ---
Vent Rate: 80 bpm RR Interval: 0 msec RI Interval: 158 msec QRS Duration: 186 msec QT Interval: 434 msec QTC Interval: 500 msec P-R-T [place]: 55 - -67 - 108 degrees Electronic ventricular pacemaker Electronically Signed By: Jet Trujillo [id number]
--- NOTE | 2016-07-06 19:38 | CONS ---
Date/Time of Note Date/Time of Note DATE: 07/06/16 TIME: 19:35 Assessment/Plan Assessment/Plan Chief Complaint/Hosp Course IMPRESSION: 1. Preoperative evaluation prior to open reduction internal fixation of the right hip.-negative troponin x 3. NO POD#1 s/p Hip ORIF 2. History of cardiomyopathy with decreased left ventricular ejection fraction , last known to be approximately 35% by echo February 2016 with a negative stress February 2016, revealing scar but no ischemia. Echo this admit EF 30-35% 3. History of permanent pacemaker implantation for bradyarrhythmias. 4. History of coronary artery disease, status post coronary bypass graft surgery. 5. Peripheral arterial disease status post relatively recent lower extremity bypass surgery. 6. End-stage renal disease on hemodialysis. 7. Diabetes mellitus. 8. Thyroid dysfunction. 9. Cardiomyopathy with decreased left ventricular ejection fraction. 10. Status post fall. 11. Hip fracture. Recc: -Continue metoprolol/hydralazine/statin -Pain control and will change to morphine due to increased confusion -Follow volume status closely -check UE venous BLAYNE given LUE swelling Problems: Consultation Date/Type/Reason Admit Date/Time Jul 02, 2016 at 16:48 Initial Consult Date 07/03/2016 Type of Consultation: Cardiology Reason for Consultation Pre-op Referring Provider: BRANDI ERICKSON DO Exam/Review of Systems Vital Signs Vitals Vital Signs Date Time Temp Pulse Resp B/P Pulse Ox O2 Delivery O2 Flow Rate FiO2 07/06/16 12:00 79 16 07/06/16 07:56 98.1 135/62 100 07/06/16 04:10 Nasal Cannula 2.0 Intake and Output 07/05/16 07/05/16 07/06/16 15:00 23:00 07:00 Intake Total 450 ml 680 ml 350 ml Output Total 400 ml 200 ml 200 ml Balance 50 ml 480 ml 150 ml Exam Review of Systems: CONSTITUTIONAL: No fevers, chills. PULMONARY: No sob CARDIOVASCULAR: No chest pain/palpitations GASTROINTESTINAL: No nausea/vomiting. GENITOURINARY: No hematuria/dysuria. MUSCULOSKELETAL: pain in leg PSYCHIATRIC: The patient denies depression. NEUROLOGIC: No weakness Constitutional: alert Psych: confusion, no complaints Head: normocephalic ENMT: mucosa pink and moist Neck: jvd (8 cm water), supple Respiratory: clear to auscultation Cardiovascular: regular rate and rhythm Gastrointestinal: non-tender, soft Musculoskeletal: muscle tone (normal) Extremities: edema (none), other (leg in binder) Results Result Diagram: 07/06/165 07/06/16 0445 Results 24 hrs Laboratory Tests Test 07/05/16 21:18 07/06/16 02:08 07/06/16 04:45 07/06/16 08:27 Bedside Glucose 228 H 189 210 White Blood Count 9.2 Red Blood Count 3.14 L Hemoglobin 9.7 L Hematocrit 33.1 L Mean Corpuscular Volume 105.4 H Mean Corpuscular Hemoglobin 30.9 Mean Corpuscular Hemoglobin Concent 29.3 L Red Cell Distribution Width 15.8 H Platelet Count 124 L Mean Platelet Volume 10.0 Neutrophils % 82.5 H Lymphocytes % 7.8 L Monocytes % 8.9 Eosinophils % 0.2 Basophils % 0.1 Nucleated Red Blood Cells % 0.4 H Neutrophils # 7.6 H Lymphocytes # 0.7 L Monocytes # 0.8 Eosinophils # 0.0 Basophils # 0.0 Nucleated Red Blood Cells # 0.0 Sodium Level 134 L Potassium Level 4.6 Chloride Level 99 Carbon Dioxide Level 23 Anion Gap 17 H Blood Urea Nitrogen 38 H Creatinine 5.20 H Glucose Level 197 Calcium Level 8.2 L Phosphorus Level 8.3 #H Magnesium Level 2.4 Test 07/06/16 12:23 07/06/16 17:15 Bedside Glucose 183 227 H Medications Medications Current Medications Hydromorphone HCl (Dilaudid) 0.5 mg Q6H PRN IV PAIN Last administered on 12:35; Admin Dose 0.5 MG; Start 07/02/16 at 23:00 Hydralazine HCl (Apresoline) 50 mg TID PO Last administered on 07/06/16 14:38 ; Admin Dose 50 MG; Start 07/03/16 at 09:00 Atorvastatin Calcium (Lipitor) 80 mg DAILY@21 PO Last administered on 20:34; Admin Dose 80 MG; Start 07/03/16 at 21:00 Ferrous Sulfate (Ferrous Sulfate (Ec)) 325 mg DAILY PO Last administered on 13:18; Admin Dose 325 MG; Start 07/03/16 at 09:00 Escitalopram Oxalate (Lexapro) 10 mg DAILY GTB Last administered on 07/05/16 13:16; Admin Dose 10 MG; Start 07/03/16 at 09:00 Polyethylene Glycol (Miralax) 17 gm DAILY PO Last administered on 07/06/16 08: 31; Admin Dose 17 GM; Start 07/03/16 at 09:00 Multivit/Ca Carb/ B Cmplx/FA/Prenat (Billie-Roge) 1 tab DAILY PO Last administered on 07/05/16 13:17; Admin Dose 1 TAB; Start 07/03/16 at 09:00 Metoprolol Succinate (Toprol Xl) 25 mg DAILY PO Last administered on 07/06/16 08:32; Admin Dose 25 MG; Start 07/03/16 at 09:00 Gabapentin (Neurontin) 100 mg DAILY PO Last administered on 07/05/16 13:17; Admin Dose 100 MG; Start 07/03/16 at 09:00 Miscellaneous Information 1 ea NOTE XX ; Start 07/02/16 at 23:45 Glucose (Glutose) 15 gm Q15M PRN PO DECREASED GLUCOSE; Start 07/02/16 at 23:45 Glucose (Glutose) 22.5 gm Q15M PRN PO DECREASED GLUCOSE; Start 07/02/16 at 23: 45 Dextrose (D50w Syringe) 25 ml Q15M PRN IV DECREASED GLUCOSE; Start 07/02/16 at 23:45 Dextrose (D50w Syringe) 50 ml Q15M PRN IV DECREASED GLUCOSE; Start 07/02/16 at 23:45 Glucagon (Glucagen) 1 mg Q15M PRN IM DECREASED GLUCOSE; Start 07/02/16 at 23:45 Glucose (Glutose) 15 gm Q15M PRN BUCCAL DECREASED GLUCOSE; Start 07/02/16 at 23 :45 Diagnostic Test (Pha) (Accu-Chek) 1 ea 02 XX Last administered on 07/06/16 02: 16; Admin Dose 1 EA; Start 07/03/16 at 02:00 Acetaminophen/ Hydrocodone Bitart ([place] (5/325)) 1 tab Q4H PRN PO PAIN LEVEL 1 -3; Start 07/05/16 at 09:30 Acetaminophen/ Hydrocodone Bitart ([place] (5/325)) 2 tab Q4H PRN PO PAIN LEVEL 4 -7; Start 07/05/16 at 09:30 Hydromorphone HCl (Dilaudid) 1 mg Q3H PRN IV PAIN LEVEL 8-10 Last administered on 07/06/16 08:23; Admin Dose 1 MG; Start 07/05/16 at 09:30 Enoxaparin Sodium (Lovenox) 40 mg DAILY SC Last administered on 07/06/16 08:40 ; Admin Dose 40 MG; Start 07/05/16 at 11:00 Ondansetron HCl (Zofran Inj) 4 mg Q6H PRN IV NAUSEA AND/OR VOMITING Last administered on 07/06/16 13:03; Admin Dose 4 MG; Start 07/05/16 at 19:00 YI RODRIGUEZ Jul 06, 2016 19:38
[2016-07-06] MEDS: ATORVASTATIN 80 MG TAB PO SCH (20:59)
[2016-07-06] MEDS: morphine 2 MG INJ IV PRN (20:59)
[2016-07-06] MEDS: HYDROCODONE/APAP (5/325) TAB PO PRN (23:00)
[2016-07-07] MEDS: morphine 2 MG INJ IV PRN (01:20)
[2016-07-07] MEDS: ACCU-CHEK XX SCH (01:27)
[2016-07-07] MEDS: HYDROCODONE/APAP (5/325) TAB PO PRN ×2 (04:35→10:34)
--- NOTE | 2016-07-07 06:05 | RADRPT ---
PROCEDURE: US DVT. CLINICAL INDICATION: Left upper extremity swelling and pain. TECHNIQUE: Multiple longitudinal and transverse images of the left upper extremity veins were obta ined with long scale and color Doppler imaging. 2D grayscale measurements with compression, color D oppler flow, and augmentation was performed. COMPARISON: No prior studies are available for comparison. FINDINGS: The left jugular vein, subclavian vein, axillary vein, and brachial veins are normally compressible throughout. Color flow demonstrates normal filling of the vessel. Normal waveforms are visualized and there is normal response to augmentation. There is a arteriovenous fistula of the left upper ar m. Very limited evaluation demonstrates patency. IMPRESSION: 1. No evidence of a deep vein thrombosis involving the left upper extremity. 2. Patent left upper extremity AV fistula. RPTAT: HH .Rachel Hogan MD, MD Date Time Electronically viewed and signed by .Rachel Hogan MD, on 07/07/2016 06:04 .G/
[2016-07-07] MEDS: LEVOTHYROXINE 88 MCG TAB PO SCH (06:31)
[2016-07-07] MEDS: PANTOPRAZOLE (EC) 40 MG TAB PO SCH (06:31)
[2016-07-07 07:00] VITALS: BP 130/60; RESP 20
[2016-07-07] MEDS: FERROUS SULFATE (EC) 325 MG TAB PO SCH (08:41)
[2016-07-07] MEDS: REPAGLINIDE 2 MG TAB PO SCH ×3 (08:41→17:23)
[2016-07-07] MEDS: MULTIVIT/CA CARB/B CMPLX/FA TAB PO SCH (08:42)
[2016-07-07] MEDS: ESCITALOPRAM 10 MG TAB GTB SCH (08:42)
[2016-07-07] MEDS: METOPROLOL (XL) 25 MG TAB PO SCH (08:42)
[2016-07-07] MEDS: GABAPENTIN 100 MG CAP PO SCH (08:42)
[2016-07-07] MEDS: ENOXAPARIN 40 MG/0.4 ML SYG SC SCH (08:43)
[2016-07-07] MEDS: POLYETHYLENE GLYCOL 17 GM PACKET PO SCH (08:43)
[2016-07-07] MEDS: INSULIN ASPART [NOVOLOG] 3 ML PEN SC SCH ×4 (08:53→20:47)
[2016-07-07] MEDS: SEVELAMER CARBONATE 0.8 GM PKT PO SCH ×3 (08:54→17:25)
--- NOTE | 2016-07-07 08:56 | PN ---
DATE: 07/07/2016 SUBJECTIVE: The patient continues to have pain in her hip. It is controlled with pain medications. The patient also was describing insomnia overnight. This morning the patient is stable, but kathie nues to describe pain. The patient had hemodialysis yesterday and tolerated it well. No other even ts noted. OBJECTIVE: VITAL SIGNS: Blood pressure 130/60, respirations 20, pulse 81, temperature 97.6. HEENT: Head is normocephalic. NECK: Supple. HEART: Regular rate. LUNGS: Showed diminished breath sounds at the base. ABDOMEN: Soft, nontender to palpation. No rebound or guarding. EXTREMITIES: Negative for clubbing or cyanosis. No edema. MUSCULOSKELETAL: The patient has a dressing over her right hip that is clean, dry, and intact. DERMATOLOGIC: No rashes. NEUROLOGIC: No focal deficits. LABORATORY DATA: Have been reviewed. Labs this morning are currently pending. The patient's left u pper extremity Doppler ultrasound is negative for a DVT. ASSESSMENT: 1. Right hip fracture, status post open reduction internal fixation. The patient is postop day #2. Plan is to continue physical therapy. Continue deep vein thrombosis prophylaxis with Lovenox. Fol low up with Dr. Maria for further recommendations. 2. End-stage renal disease. The patient had hemodialysis yesterday and tolerated it well. Plan fo r dialysis tomorrow for 3 hours, 3K bath, calcium 2.5. 3. Hypertension. Continue the current blood pressure regimen. Continue ultrafiltration dialysis. 4. Diabetes. Continue the current insulin regimen. 5. Cardiomyopathy/coronary artery disease. Continue the current treatment plan. Follow up with ca rdiology for further recommendations. 6. History of peripheral vascular disease. Status post fem-pop. 7. Chronic pain syndrome. Etiology is postoperative pain. Continue the current pain regimen. 8. Hypothyroidism. Continue Synthroid. 9. Mineral bone disorder. The patient's phosphorus levels remain elevated. Will increase Renagel to 1.6 g t.i.d. with meals. 10. Gastrointestinal and deep venous thrombosis prophylaxis. Continue PPI and Lovenox. DISPOSITION: The patient is being evaluated for acute rehabilitation at the [facility]. Dictated By: BRANDI CHANEY/ANA Conf#: [id number] DID#: [id number]
[2016-07-07 10:09] LABS: ADD SCAN DIFF NO
[2016-07-07 10:16] LABS: EOSINOPHILS # 0.1 10^3/ul (0.0-0.5); EOSINOPHILS % 0.7 % (0.0-7.0); HEMOGLOBIN 9.7 g/dl (12.0-16.0); LYMPHOCYTES # 0.7 10^3/ul (0.8-2.9); LYMPHOCYTES % 9.8 % (15.0-51.0); MEAN CORPUSCULAR HEMOGLOBIN 31.1 pg (29.0-33.0); MEAN CORPUSCULAR HGB CONC 30.3 g/dl (32.0-37.0); MEAN CORPUSCULAR VOLUME 102.6 fl (82.0-101.0); MEAN PLATELET VOLUME 9.1 fl (7.4-10.4); MONOCYTE # 0.7 10^3/ul (0.3-0.9); NEUTROPHIL # 5.8 10^3/ul (1.6-7.5); NUCLEATED RED BLOOD CELLS% 0.3 /100WBC (0.0-0.0); PLATELET COUNT 117 10^3/UL (140-415); RED BLOOD COUNT 3.12 10^6/ul (4.20-5.40); RED CELL DISTRIBUTION WIDTH 15.6 % (11.5-14.5); WHITE BLOOD COUNT 7.3 10^3/ul (4.8-10.8)
[2016-07-07 10:43] LABS: CALCIUM 8.2 mg/dl (8.4-10.2); CREATININE 4.57 mg/dl (0.44-1.00); MAGNESIUM 2.4 mg/dl (1.7-2.5); PHOSPHORUS 5.7 mg/dl (2.5-4.9); POTASSIUM 4.1 mmol/L (3.5-5.1)
--- NOTE | 2016-07-07 16:54 | CONS ---
Date/Time of Note Date/Time of Note DATE: 07/07/16 TIME: 16:50 Assessment/Plan Assessment/Plan Chief Complaint/Hosp Course IMPRESSION: 1. Preoperative evaluation prior to open reduction internal fixation of the right hip.-negative troponin x 3. NO POD#2 s/p Hip ORIF 2. History of cardiomyopathy with decreased left ventricular ejection fraction , last known to be approximately 35% by echo February 2016 with a negative stress February 2016, revealing scar but no ischemia. Echo this admit EF 30-35% 3. History of permanent pacemaker implantation for bradyarrhythmias. 4. History of coronary artery disease, status post coronary bypass graft surgery. 5. Peripheral arterial disease status post relatively recent lower extremity bypass surgery. 6. End-stage renal disease on hemodialysis. 7. Diabetes mellitus. 8. Thyroid dysfunction. 9. Cardiomyopathy with decreased left ventricular ejection fraction. 10. Status post fall. 11. Hip fracture. 12. Arm swelling-Negatuve venous BLAYNE for DVT 07/07 14. Hyponatremia Recc: -Continue metoprolol/hydralazine/statin -Not on ACEI at thie time due to intitial high k which has resolved and thus mickey consider change to ACEI -Pain control and will change to morphine due to increased confusion -Follow volume status closely with HD for volume removal Problems: Consultation Date/Type/Reason Admit Date/Time Jul 02, 2016 at 16:48 Initial Consult Date 07/03/2016 Type of Consultation: Cardiology Reason for Consultation CHF/cardiomyopathy/pre-op Referring Provider: BRANDI ERICKSON DO Exam/Review of Systems Vital Signs Vitals Vital Signs Date Time Temp Pulse Resp B/P Pulse Ox O2 Delivery O2 Flow Rate FiO2 07/07/16 07:00 97.6 81 20 130/60 100 07/06/16 20:55 Nasal Cannula 2.0 Intake and Output 07/06/16 07/06/16 07/07/16 15:00 23:00 07:00 Intake Total 300 ml 560 ml 440 ml Output Total 3300 ml 200 ml 100 ml Balance -3000 ml 360 ml 340 ml Exam Review of Systems: CONSTITUTIONAL: No fevers, chills. PULMONARY: No sob CARDIOVASCULAR: No chest pain/palpitations GASTROINTESTINAL: No nausea/vomiting. GENITOURINARY: No hematuria/dysuria. MUSCULOSKELETAL:pain at surgical site PSYCHIATRIC: The patient denies depression. NEUROLOGIC: No weakness Constitutional: other (sleeping, arousable) Psych: no complaints Head: normocephalic ENMT: mucosa pink and moist Neck: jvd (9 cm water), supple Respiratory: diminished breath sounds (at bases/B) Cardiovascular: regular rate and rhythm Gastrointestinal: non-tender, soft Musculoskeletal: muscle tone (normal) Extremities: edema (none) Neurological: other (No focal deficits) Results Result Diagram: 07/07/16 0947 07/07/16 0947 Results 24 hrs Laboratory Tests Test 07/06/16 17:15 07/06/16 20:58 07/07/16 08:07 07/07/16 09:47 Bedside Glucose 227 H 217 167 White Blood Count 7.3 # Red Blood Count 3.12 L Hemoglobin 9.7 L Hematocrit 32.0 L Mean Corpuscular Volume 102.6 H Mean Corpuscular Hemoglobin 31.1 Mean Corpuscular Hemoglobin Concent 30.3 L Red Cell Distribution Width 15.6 H Platelet Count 117 L Mean Platelet Volume 9.1 Neutrophils % 79.0 H Lymphocytes % 9.8 L Monocytes % 10.0 Eosinophils % 0.7 Basophils % 0.0 Nucleated Red Blood Cells % 0.3 H Neutrophils # 5.8 Lymphocytes # 0.7 L Monocytes # 0.7 Eosinophils # 0.1 Basophils # 0.0 Nucleated Red Blood Cells # 0.0 Sodium Level 131 L Potassium Level 4.1 Chloride Level 98 Carbon Dioxide Level 24 Anion Gap 13 Blood Urea Nitrogen 34 H Creatinine 4.57 H Glucose Level 190 Calcium Level 8.2 L Phosphorus Level 5.7 #H Magnesium Level 2.4 Test 07/07/16 11:23 07/07/16 12:33 07/07/16 16:46 Bedside Glucose 216 215 167 Medications Medications Current Medications Hydralazine HCl (Apresoline) 50 mg TID PO Last administered on 07/07/16 13:23 ; Admin Dose 50 MG; Start 07/03/16 at 09:00 Atorvastatin Calcium (Lipitor) 80 mg DAILY@21 PO Last administered on 20:59; Admin Dose 80 MG; Start 07/03/16 at 21:00 Ferrous Sulfate (Ferrous Sulfate (Ec)) 325 mg DAILY PO Last administered on 08:41; Admin Dose 325 MG; Start 07/03/16 at 09:00 Escitalopram Oxalate (Lexapro) 10 mg DAILY GTB Last administered on 07/07/16 08:42; Admin Dose 10 MG; Start 07/03/16 at 09:00 Polyethylene Glycol (Miralax) 17 gm DAILY PO Last administered on 07/07/16 08: 43; Admin Dose 17 GM; Start 07/03/16 at 09:00 Multivit/Ca Carb/ B Cmplx/FA/Prenat (Billie-Roge) 1 tab DAILY PO Last administered on 07/07/16 08:42; Admin Dose 1 TAB; Start 07/03/16 at 09:00 Metoprolol Succinate (Toprol Xl) 25 mg DAILY PO Last administered on 07/07/16 08:42; Admin Dose 25 MG; Start 07/03/16 at 09:00 Gabapentin (Neurontin) 100 mg DAILY PO Last administered on 07/07/16 08:42; Admin Dose 100 MG; Start 07/03/16 at 09:00 Miscellaneous Information 1 ea NOTE XX ; Start 07/02/16 at 23:45 Glucose (Glutose) 15 gm Q15M PRN PO DECREASED GLUCOSE; Start 07/02/16 at 23:45 Glucose (Glutose) 22.5 gm Q15M PRN PO DECREASED GLUCOSE; Start 07/02/16 at 23: 45 Dextrose (D50w Syringe) 25 ml Q15M PRN IV DECREASED GLUCOSE; Start 07/02/16 at 23:45 Dextrose (D50w Syringe) 50 ml Q15M PRN IV DECREASED GLUCOSE; Start 07/02/16 at 23:45 Glucagon (Glucagen) 1 mg Q15M PRN IM DECREASED GLUCOSE; Start 07/02/16 at 23:45 Glucose (Glutose) 15 gm Q15M PRN BUCCAL DECREASED GLUCOSE; Start 07/02/16 at 23 :45 Diagnostic Test (Pha) (Accu-Chek) 1 ea 02 XX Last administered on 07/06/16 02: 16; Admin Dose 1 EA; Start 07/03/16 at 02:00 Acetaminophen/ Hydrocodone Bitart ([place] (5/325)) 1 tab Q4H PRN PO PAIN LEVEL 1 -3; Start 07/05/16 at 09:30 Acetaminophen/ Hydrocodone Bitart ([place] (5/325)) 2 tab Q4H PRN PO PAIN LEVEL 4 -7 Last administered on 07/07/16 10:34; Admin Dose 2 TAB; Start 07/05/16 at 09: 30 Enoxaparin Sodium (Lovenox) 40 mg DAILY SC Last administered on 07/07/16 08:43 ; Admin Dose 40 MG; Start 07/05/16 at 11:00 Ondansetron HCl (Zofran Inj) 4 mg Q6H PRN IV NAUSEA AND/OR VOMITING Last administered on 07/06/16 13:03; Admin Dose 4 MG; Start 07/05/16 at 19:00 Morphine Sulfate (morphine) 2 mg Q4H PRN IV pain Last administered on 01:20; Admin Dose 2 MG; Start 07/06/16 at 20:00 YI RODRIGUEZ Jul 07, 2016 16:53
[2016-07-07 19:52] VITALS: BP 135/57; RESP 20
[2016-07-07] MEDS: ATORVASTATIN 80 MG TAB PO SCH (20:31)
[2016-07-08] VITALS (10 sets, daily range): BP systolic 106–135; BP diastolic 45–65; PULSE 70–75; RESP 17–20
[2016-07-08] MEDS: ACCU-CHEK XX SCH (02:00)
[2016-07-08] MEDS: HYDROCODONE/APAP (5/325) TAB PO PRN ×2 (03:16→10:31)
[2016-07-08 06:03] LABS: ADD SCAN DIFF NO
[2016-07-08 06:13] LABS: BASOPHILS % 0.2 % (0.0-2.0); EOSINOPHILS # 0.1 10^3/ul (0.0-0.5); EOSINOPHILS % 1.7 % (0.0-7.0); HEMATOCRIT 31.2 % (37.0-47.0); HEMOGLOBIN 9.7 g/dl (12.0-16.0); LYMPHOCYTES # 0.7 10^3/ul (0.8-2.9); LYMPHOCYTES % 11.6 % (15.0-51.0); MEAN CORPUSCULAR HEMOGLOBIN 31.3 pg (29.0-33.0); MEAN CORPUSCULAR HGB CONC 31.1 g/dl (32.0-37.0); MEAN CORPUSCULAR VOLUME 100.6 fl (82.0-101.0); MEAN PLATELET VOLUME 9.5 fl (7.4-10.4); MONOCYTE # 0.7 10^3/ul (0.3-0.9); MONOCYTES % 11.5 % (0.0-11.0); NEUTROPHIL # 4.4 10^3/ul (1.6-7.5); NEUTROPHILS % 74.7 % (39.0-77.0); PLATELET COUNT 140 10^3/UL (140-415); RED CELL DISTRIBUTION WIDTH 15.1 % (11.5-14.5); WHITE BLOOD COUNT 5.8 10^3/ul (4.8-10.8)
[2016-07-08] MEDS: LEVOTHYROXINE 88 MCG TAB PO SCH (06:17)
[2016-07-08] MEDS: PANTOPRAZOLE (EC) 40 MG TAB PO SCH (06:17)
[2016-07-08 06:43] LABS: CREATININE 5.67 mg/dl (0.44-1.00)
[2016-07-08 06:44] LABS: CALCIUM 8.2 mg/dl (8.4-10.2)
[2016-07-08] MEDS: INSULIN ASPART [NOVOLOG] 3 ML PEN SC SCH ×6 (07:50→21:00)
[2016-07-08] MEDS: MULTIVIT/CA CARB/B CMPLX/FA TAB PO SCH ×2 (08:31→08:37)
[2016-07-08] MEDS: REPAGLINIDE 2 MG TAB PO SCH ×2 (08:32→12:37)
[2016-07-08] MEDS: SEVELAMER CARBONATE 0.8 GM PKT PO SCH ×3 (08:36→18:13)
[2016-07-08] MEDS: GABAPENTIN 100 MG CAP PO SCH ×2 (08:37→09:00)
[2016-07-08] MEDS: ESCITALOPRAM 10 MG TAB GTB SCH (08:38)
[2016-07-08] MEDS: POLYETHYLENE GLYCOL 17 GM PACKET PO SCH (08:38)
[2016-07-08] MEDS: FERROUS SULFATE (EC) 325 MG TAB PO SCH (08:38)
[2016-07-08] MEDS: METOPROLOL (XL) 25 MG TAB PO SCH (09:00)
--- NOTE | 2016-07-08 09:08 | CONS ---
Date/Time of Note Date/Time of Note DATE: 07/08/16 TIME: 09:06 Consult Date/Type/Reason Admit Date/Time Jul 02, 2016 at 16:48 Initial Consult Date Type of Consultation: nephrology Ordering Provider: BRANDI ERICKSON pt. seen and examined on pain meds. started on pt. d/w rn pe: HEENT: Head is normocephalic. NECK: Supple. HEART: Regular rate. LUNGS: Showed diminished breath sounds at the base. ABDOMEN: Soft, nontender to palpation. No rebound or guarding. EXTREMITIES: Negative for clubbing or cyanosis. No edema. MUSCULOSKELETAL: The patient has a dressing over her right hip that is clean, dry, and intact. DERMATOLOGIC: No rashes. NEUROLOGIC: No focal deficits. Objective Vital Signs Date Time Temp Pulse Resp B/P Pulse Ox O2 Delivery O2 Flow Rate FiO2 07/08/16 07:54 97.8 81 20 135/61 99 07/06/16 20:55 Nasal Cannula 2.0 Intake and Output 07/07/16 07/07/16 07/08/16 15:00 23:00 07:00 Intake Total 1040 ml 360 ml Output Total 0 ml 0 ml Balance 1040 ml 360 ml Results/Medications Result Diagram: 07/08/16 0441 07/08/16 0441 Results 24 hrs Laboratory Tests Test 07/07/16 09:47 07/07/16 11:23 07/07/16 12:33 07/07/16 16:46 White Blood Count 7.3 # Red Blood Count 3.12 L Hemoglobin 9.7 L Hematocrit 32.0 L Mean Corpuscular Volume 102.6 H Mean Corpuscular Hemoglobin 31.1 Mean Corpuscular Hemoglobin Concent 30.3 L Red Cell Distribution Width 15.6 H Platelet Count 117 L Mean Platelet Volume 9.1 Neutrophils % 79.0 H Lymphocytes % 9.8 L Monocytes % 10.0 Eosinophils % 0.7 Basophils % 0.0 Nucleated Red Blood Cells % 0.3 H Neutrophils # 5.8 Lymphocytes # 0.7 L Monocytes # 0.7 Eosinophils # 0.1 Basophils # 0.0 Nucleated Red Blood Cells # 0.0 Sodium Level 131 L Potassium Level 4.1 Chloride Level 98 Carbon Dioxide Level 24 Anion Gap 13 Blood Urea Nitrogen 34 H Creatinine 4.57 H Glucose Level 190 Calcium Level 8.2 L Phosphorus Level 5.7 #H Magnesium Level 2.4 Bedside Glucose 216 215 167 Test 07/07/16 20:33 07/08/16 04:41 07/08/16 07:52 Bedside Glucose 143 107 White Blood Count 5.8 # Red Blood Count 3.10 L Hemoglobin 9.7 L Hematocrit 31.2 L Mean Corpuscular Volume 100.6 Mean Corpuscular Hemoglobin 31.3 Mean Corpuscular Hemoglobin Concent 31.1 L Red Cell Distribution Width 15.1 H Platelet Count 140 Mean Platelet Volume 9.5 Neutrophils % 74.7 Lymphocytes % 11.6 L Monocytes % 11.5 H Eosinophils % 1.7 Basophils % 0.2 Nucleated Red Blood Cells % 0.0 Neutrophils # 4.4 Lymphocytes # 0.7 L Monocytes # 0.7 Eosinophils # 0.1 Basophils # 0.0 Nucleated Red Blood Cells # 0.0 Sodium Level 131 L Potassium Level 4.0 Chloride Level 94 L Carbon Dioxide Level 24 Anion Gap 17 H Blood Urea Nitrogen 46 #H Creatinine 5.67 H Glucose Level 115 # Calcium Level 8.2 L Medications Current Medications Hydralazine HCl (Apresoline) 50 mg TID PO Last administered on 07/07/16 20:31 ; Admin Dose 50 MG; Start 07/03/16 at 09:00 Atorvastatin Calcium (Lipitor) 80 mg DAILY@21 PO Last administered on 20:31; Admin Dose 80 MG; Start 07/03/16 at 21:00 Ferrous Sulfate (Ferrous Sulfate (Ec)) 325 mg DAILY PO Last administered on 08:38; Admin Dose 325 MG; Start 07/03/16 at 09:00 Escitalopram Oxalate (Lexapro) 10 mg DAILY GTB Last administered on 07/08/16 08:38; Admin Dose 10 MG; Start 07/03/16 at 09:00 Polyethylene Glycol (Miralax) 17 gm DAILY PO Last administered on 07/08/16 08: 38; Admin Dose 17 GM; Start 07/03/16 at 09:00 Multivit/Ca Carb/ B Cmplx/FA/Prenat (Billie-Roge) 1 tab DAILY PO Last administered on 07/08/16 08:37; Admin Dose 1 TAB; Start 07/03/16 at 09:00 Metoprolol Succinate (Toprol Xl) 25 mg DAILY PO Last administered on 07/07/16 08:42; Admin Dose 25 MG; Start 07/03/16 at 09:00 Gabapentin (Neurontin) 100 mg DAILY PO Last administered on 07/08/16 08:37; Admin Dose 100 MG; Start 07/03/16 at 09:00 Miscellaneous Information 1 ea NOTE XX ; Start 07/02/16 at 23:45 Glucose (Glutose) 15 gm Q15M PRN PO DECREASED GLUCOSE; Start 07/02/16 at 23:45 Glucose (Glutose) 22.5 gm Q15M PRN PO DECREASED GLUCOSE; Start 07/02/16 at 23: 45 Dextrose (D50w Syringe) 25 ml Q15M PRN IV DECREASED GLUCOSE; Start 07/02/16 at 23:45 Dextrose (D50w Syringe) 50 ml Q15M PRN IV DECREASED GLUCOSE; Start 07/02/16 at 23:45 Glucagon (Glucagen) 1 mg Q15M PRN IM DECREASED GLUCOSE; Start 07/02/16 at 23:45 Glucose (Glutose) 15 gm Q15M PRN BUCCAL DECREASED GLUCOSE; Start 07/02/16 at 23 :45 Diagnostic Test (Pha) (Accu-Chek) 1 ea 02 XX Last administered on 07/06/16 02: 16; Admin Dose 1 EA; Start 07/03/16 at 02:00 Acetaminophen/ Hydrocodone Bitart ([place] (5/325)) 1 tab Q4H PRN PO PAIN LEVEL 1 -3 Last administered on 07/08/16 03:16; Admin Dose 1 TAB; Start 07/05/16 at 09: 30 Acetaminophen/ Hydrocodone Bitart ([place] (5/325)) 2 tab Q4H PRN PO PAIN LEVEL 4 -7 Last administered on 07/07/16 10:34; Admin Dose 2 TAB; Start 07/05/16 at 09: 30 Enoxaparin Sodium (Lovenox) 40 mg DAILY SC Last administered on 07/07/16 08:43 ; Admin Dose 40 MG; Start 07/05/16 at 11:00 Ondansetron HCl (Zofran Inj) 4 mg Q6H PRN IV NAUSEA AND/OR VOMITING Last administered on 07/06/16 13:03; Admin Dose 4 MG; Start 4/26/17 at 19:00 Morphine Sulfate (morphine) 2 mg Q4H PRN IV pain Last administered on t 01:20; Admin Dose 2 MG; Start 07/06/16 at 20:00 Assessment/Plan Chief Complaint/Hosp Course 1. Right hip fracture, status post open reduction internal fixation. The patient is postop day #2. Plan is to continue physical therapy. Continue deep vein thrombosis prophylaxis with Lovenox. Follow up with Dr. Maria for further recommendations. 2. End-stage renal disease. hd today, watch lytes and volume status. 3. Hypertension. Continue the current blood pressure regimen. Continue ultrafiltration dialysis. 4. Diabetes. Continue the current insulin regimen. 5. Cardiomyopathy/coronary artery disease. Continue the current treatment plan. Follow up with cardiology for further recommendations. 6. History of peripheral vascular disease. Status post fem-pop. 7. Chronic pain syndrome. Etiology is postoperative pain. Continue the current pain regimen. 8. Hypothyroidism. Continue Synthroid. 9. Mineral bone disorder. The patient's phosphorus levels remain elevated. Will increase Renagel to 1.6 g t.i.d. with meals. 10. Gastrointestinal and deep venous thrombosis prophylaxis. Continue PPI and Lovenox. Problems: MARIANNE RODAS MD Jul 08, 2016 09:08
[2016-07-08] MEDS: ENOXAPARIN 40 MG/0.4 ML SYG SC SCH (10:33)
--- NOTE | 2016-07-08 14:16 | CONS ---
Date/Time of Note Date/Time of Note DATE: 07/08/16 TIME: 14:15 Assessment/Plan Assessment/Plan Chief Complaint/Hosp Course IMPRESSION: 1. Preoperative evaluation prior to open reduction internal fixation of the right hip.-negative troponin x 3. NO POD#2 s/p Hip ORIF 2. History of cardiomyopathy with decreased left ventricular ejection fraction , last known to be approximately 35% by echo February 2016 with a negative stress February 2016, revealing scar but no ischemia. Echo this admit EF 30-35% 3. History of permanent pacemaker implantation for bradyarrhythmias. 4. History of coronary artery disease, status post coronary bypass graft surgery. 5. Peripheral arterial disease status post relatively recent lower extremity bypass surgery. 6. End-stage renal disease on hemodialysis. 7. Diabetes mellitus. 8. Thyroid dysfunction. 9. Cardiomyopathy with decreased left ventricular ejection fraction. 10. Status post fall. 11. Hip fracture. 12. Arm swelling-Negatuve venous BLAYNE for DVT 07/07 14. Hyponatremia Recc: -Continue metoprolol/hydralazine/statin -Not on ACEI at thie time due to intitial high k which has resolved and thus will consider change to ACEI -Pain control and will change to morphine due to increased confusion -Follow volume status closely with HD for volume removal Problems: Consultation Date/Type/Reason Admit Date/Time Jul 02, 2016 at 16:48 Initial Consult Date 07/03/2016 Type of Consultation: Cardiology Reason for Consultation Pre-op/HTN Referring Provider: BRANDI ERICKSON DO Exam/Review of Systems Vital Signs Vitals Vital Signs Date Time Temp Pulse Resp B/P Pulse Ox O2 Delivery O2 Flow Rate FiO2 07/08/16 11:30 73 16 07/08/16 07:54 97.8 135/61 99 07/06/16 20:55 Nasal Cannula 2.0 Intake and Output 07/07/16 07/07/16 07/08/16 15:00 23:00 07:00 Intake Total 1040 ml 360 ml Output Total 0 ml 0 ml Balance 1040 ml 360 ml Exam Review of Systems: CONSTITUTIONAL: No fevers, chills. PULMONARY: No sob CARDIOVASCULAR: No chest pain/palpitations GASTROINTESTINAL: No nausea/vomiting. GENITOURINARY: No hematuria/dysuria. MUSCULOSKELETAL: No myagias/arthalgias. PSYCHIATRIC: The patient denies depression. NEUROLOGIC: No weakness Constitutional: alert, oriented Psych: no complaints Head: normocephalic ENMT: mucosa pink and moist Neck: jvd, supple Respiratory: diminished breath sounds Cardiovascular: regular rate and rhythm Gastrointestinal: non-tender, soft Musculoskeletal: muscle tone (normal) Extremities: edema (none) Neurological: other (None) Results Result Diagram: 07/08/16 0441 07/08/16 0441 Results 24 hrs Laboratory Tests Test 07/07/16 16:46 07/07/16 20:33 07/08/16 04:41 07/08/16 07:52 Bedside Glucose 167 143 107 White Blood Count 5.8 # Red Blood Count 3.10 L Hemoglobin 9.7 L Hematocrit 31.2 L Mean Corpuscular Volume 100.6 Mean Corpuscular Hemoglobin 31.3 Mean Corpuscular Hemoglobin Concent 31.1 L Red Cell Distribution Width 15.1 H Platelet Count 140 Mean Platelet Volume 9.5 Neutrophils % 74.7 Lymphocytes % 11.6 L Monocytes % 11.5 H Eosinophils % 1.7 Basophils % 0.2 Nucleated Red Blood Cells % 0.0 Neutrophils # 4.4 Lymphocytes # 0.7 L Monocytes # 0.7 Eosinophils # 0.1 Basophils # 0.0 Nucleated Red Blood Cells # 0.0 Sodium Level 131 L Potassium Level 4.0 Chloride Level 94 L Carbon Dioxide Level 24 Anion Gap 17 H Blood Urea Nitrogen 46 #H Creatinine 5.67 H Glucose Level 115 # Calcium Level 8.2 L Test 07/08/16 11:58 Bedside Glucose 166 Medications Medications Current Medications Hydralazine HCl (Apresoline) 50 mg TID PO Last administered on 07/07/16 20:31 ; Admin Dose 50 MG; Start 07/03/16 at 09:00 Atorvastatin Calcium (Lipitor) 80 mg DAILY@21 PO Last administered on 20:31; Admin Dose 80 MG; Start 07/03/16 at 21:00 Ferrous Sulfate (Ferrous Sulfate (Ec)) 325 mg DAILY PO Last administered on 08:38; Admin Dose 325 MG; Start 07/03/16 at 09:00 Escitalopram Oxalate (Lexapro) 10 mg DAILY GTB Last administered on 07/08/16 08:38; Admin Dose 10 MG; Start 07/03/16 at 09:00 Polyethylene Glycol (Miralax) 17 gm DAILY PO Last administered on 07/08/16 08: 38; Admin Dose 17 GM; Start 07/03/16 at 09:00 Multivit/Ca Carb/ B Cmplx/FA/Prenat (Billie-Roge) 1 tab DAILY PO Last administered on 07/08/16 08:37; Admin Dose 1 TAB; Start 07/03/16 at 09:00 Metoprolol Succinate (Toprol Xl) 25 mg DAILY PO Last administered on 07/08/16 09:00; Admin Dose 25 MG; Start 07/03/16 at 09:00 Gabapentin (Neurontin) 100 mg DAILY PO Last administered on 07/08/16 08:37; Admin Dose 100 MG; Start 07/03/16 at 09:00 Miscellaneous Information 1 ea NOTE XX ; Start 07/02/16 at 23:45 Glucose (Glutose) 15 gm Q15M PRN PO DECREASED GLUCOSE; Start 07/02/16 at 23:45 Glucose (Glutose) 22.5 gm Q15M PRN PO DECREASED GLUCOSE; Start 07/02/16 at 23: 45 Dextrose (D50w Syringe) 25 ml Q15M PRN IV DECREASED GLUCOSE; Start 07/02/16 at 23:45 Dextrose (D50w Syringe) 50 ml Q15M PRN IV DECREASED GLUCOSE; Start 07/02/16 at 23:45 Glucagon (Glucagen) 1 mg Q15M PRN IM DECREASED GLUCOSE; Start 07/02/16 at 23:45 Glucose (Glutose) 15 gm Q15M PRN BUCCAL DECREASED GLUCOSE; Start 07/02/16 at 23 :45 Diagnostic Test (Pha) (Accu-Chek) 1 ea 02 XX Last administered on 07/06/16 02: 16; Admin Dose 1 EA; Start 07/03/16 at 02:00 Acetaminophen/ Hydrocodone Bitart ([place] (5/325)) 1 tab Q4H PRN PO PAIN LEVEL 1 -3 Last administered on 07/08/16 10:31; Admin Dose 1 TAB; Start 07/05/16 at 09: 30 Acetaminophen/ Hydrocodone Bitart ([place] (5/325)) 2 tab Q4H PRN PO PAIN LEVEL 4 -7 Last administered on 07/07/16 10:34; Admin Dose 2 TAB; Start 07/05/16 at 09: 30 Enoxaparin Sodium (Lovenox) 40 mg DAILY SC Last administered on 07/08/16 10:33 ; Admin Dose 40 MG; Start 07/05/16 at 11:00 Ondansetron HCl (Zofran Inj) 4 mg Q6H PRN IV NAUSEA AND/OR VOMITING Last administered on 07/06/16 13:03; Admin Dose 4 MG; Start 07/05/16 at 19:00 Morphine Sulfate (morphine) 2 mg Q4H PRN IV pain Last administered on 01:20; Admin Dose 2 MG; Start 07/06/16 at 20:00 YI RODRIGUEZ Jul 08, 2016 14:16
[2016-07-08] MEDS: EPOETIN 10000 UNITS/1 ML INJ (ESRD) SC SCH (17:09)
[2016-07-08] MEDS: REPAGLINIDE 1 MG TAB PO SCH (18:19)
[2016-07-08] MEDS: ATORVASTATIN 80 MG TAB PO SCH (21:08)
[2016-07-09] MEDS: ACCU-CHEK XX SCH (02:27)
[2016-07-09] MEDS: HYDROCODONE/APAP (5/325) TAB PO PRN ×2 (04:27→11:59)
[2016-07-09] MEDS: PANTOPRAZOLE (EC) 40 MG TAB PO SCH (06:19)
[2016-07-09] MEDS: LEVOTHYROXINE 88 MCG TAB PO SCH (06:19)
[2016-07-09] MEDS: REPAGLINIDE 1 MG TAB PO SCH ×3 (08:29→17:34)
[2016-07-09] MEDS: SEVELAMER CARBONATE 0.8 GM PKT PO SCH ×3 (08:30→17:34)
[2016-07-09] MEDS: FERROUS SULFATE (EC) 325 MG TAB PO SCH (08:30)
[2016-07-09] MEDS: POLYETHYLENE GLYCOL 17 GM PACKET PO SCH (08:31)
[2016-07-09] MEDS: MULTIVIT/CA CARB/B CMPLX/FA TAB PO SCH (08:31)
[2016-07-09] MEDS: INSULIN ASPART [NOVOLOG] 3 ML PEN SC SCH ×4 (08:34→20:15)
[2016-07-09] MEDS: METOPROLOL (XL) 25 MG TAB PO SCH (08:35)
[2016-07-09] MEDS: ENOXAPARIN 40 MG/0.4 ML SYG SC SCH (08:42)
[2016-07-09 08:48] VITALS: BP 129/61; RESP 16
--- NOTE | 2016-07-09 08:50 | CONS ---
Date/Time of Note Date/Time of Note DATE: 07/09/16 TIME: 08:49 Consult Date/Type/Reason Admit Date/Time Jul 02, 2016 at 16:48 Type of Consultation: nephrology Ordering Provider: BRANDI ERICKSON pt. seen and examined post op. s/p hd yesterday d/w daughter at bedside. getting pt/ot. pe: HEENT: Head is normocephalic. NECK: Supple. HEART: Regular rate. LUNGS: Showed diminished breath sounds at the base. ABDOMEN: Soft, nontender to palpation. No rebound or guarding. EXTREMITIES: Negative for clubbing or cyanosis. No edema. MUSCULOSKELETAL: The patient has a dressing over her right hip that is clean, dry, and intact. DERMATOLOGIC: No rashes. NEUROLOGIC: No focal deficits. Objective Vital Signs Date Time Temp Pulse Resp B/P Pulse Ox O2 Delivery O2 Flow Rate FiO2 07/08/16 20:30 98.1 82 19 127/60 98 07/06/16 20:55 Nasal Cannula 2.0 Intake and Output 07/08/16 07/08/16 07/09/16 15:00 23:00 07:00 Intake Total 300 ml 700 ml 360 ml Output Total 2800 ml 0 ml Balance -2500 ml 700 ml 360 ml Results/Medications Result Diagram: 07/08/16 0441 07/08/16 0441 Results 24 hrs Laboratory Tests Test 07/08/16 11:58 07/08/16 18:10 07/08/16 21:14 07/09/16 01:56 Bedside Glucose 166 230 H 271 H 201 Test 07/09/16 08:27 Bedside Glucose 154 Medications Current Medications Hydralazine HCl (Apresoline) 50 mg TID PO Last administered on 07/09/16 08:35 ; Admin Dose 50 MG; Start 07/03/16 at 09:00 Atorvastatin Calcium (Lipitor) 80 mg DAILY@21 PO Last administered on 21:08; Admin Dose 80 MG; Start 07/03/16 at 21:00 Ferrous Sulfate (Ferrous Sulfate (Ec)) 325 mg DAILY PO Last administered on 08:30; Admin Dose 325 MG; Start 07/03/16 at 09:00 Escitalopram Oxalate (Lexapro) 10 mg DAILY GTB Last administered on 07/07/16 08:42; Admin Dose 10 MG; Start 07/03/16 at 09:00 Polyethylene Glycol (Miralax) 17 gm DAILY PO Last administered on 07/09/16 08: 31; Admin Dose 17 GM; Start 07/03/16 at 09:00 Multivit/Ca Carb/ B Cmplx/FA/Prenat (Billie-Roge) 1 tab DAILY PO Last administered on 07/09/16 08:31; Admin Dose 1 TAB; Start 07/03/16 at 09:00 Metoprolol Succinate (Toprol Xl) 25 mg DAILY PO Last administered on 07/09/16 08:35; Admin Dose 25 MG; Start 07/03/16 at 09:00 Gabapentin (Neurontin) 100 mg DAILY PO Last administered on 07/07/16 08:42; Admin Dose 100 MG; Start 07/03/16 at 09:00 Miscellaneous Information 1 ea NOTE XX ; Start 07/02/16 at 23:45 Glucose (Glutose) 15 gm Q15M PRN PO DECREASED GLUCOSE; Start 07/02/16 at 23:45 Glucose (Glutose) 22.5 gm Q15M PRN PO DECREASED GLUCOSE; Start 07/02/16 at 23: 45 Dextrose (D50w Syringe) 25 ml Q15M PRN IV DECREASED GLUCOSE; Start 07/02/16 at 23:45 Dextrose (D50w Syringe) 50 ml Q15M PRN IV DECREASED GLUCOSE; Start 07/02/16 at 23:45 Glucagon (Glucagen) 1 mg Q15M PRN IM DECREASED GLUCOSE; Start 07/02/16 at 23:45 Glucose (Glutose) 15 gm Q15M PRN BUCCAL DECREASED GLUCOSE; Start 07/02/16 at 23 :45 Diagnostic Test (Pha) (Accu-Chek) 1 ea 02 XX Last administered on 07/09/16 02: 27; Admin Dose 1 EA; Start 07/03/16 at 02:00 Acetaminophen/ Hydrocodone Bitart ([place] (5/325)) 1 tab Q4H PRN PO PAIN LEVEL 1 -3 Last administered on 07/09/16 04:27; Admin Dose 1 TAB; Start 07/05/16 at 09: 30 Acetaminophen/ Hydrocodone Bitart ([place] (5/325)) 2 tab Q4H PRN PO PAIN LEVEL 4 -7 Last administered on 07/07/16 10:34; Admin Dose 2 TAB; Start 07/05/16 at 09: 30 Enoxaparin Sodium (Lovenox) 40 mg DAILY SC Last administered on 07/09/16 08:42 ; Admin Dose 40 MG; Start 07/05/16 at 11:00 Ondansetron HCl (Zofran Inj) 4 mg Q6H PRN IV NAUSEA AND/OR VOMITING Last administered on 07/06/16 13:03; Admin Dose 4 MG; Start 07/05/16 at 19:00 Morphine Sulfate (morphine) 2 mg Q4H PRN IV pain Last administered on 01:20; Admin Dose 2 MG; Start 07/06/16 at 20:00 Assessment/Plan Chief Complaint/Hosp Course 1. Right hip fracture, status post open reduction internal fixation. The patient is postop day #4. Plan is to continue physical therapy. Continue deep vein thrombosis prophylaxis with Lovenox. Follow up with Dr. Maria for further recommendations. 2. End-stage renal disease. hd today, watch lytes and volume status. 3. Hypertension. Continue the current blood pressure regimen. Continue ultrafiltration dialysis. 4. Diabetes. Continue the current insulin regimen. 5. Cardiomyopathy/coronary artery disease. Continue the current treatment plan. Follow up with cardiology for further recommendations. 6. History of peripheral vascular disease. Status post fem-pop. 7. Chronic pain syndrome. Etiology is postoperative pain. Continue the current pain regimen. 8. Hypothyroidism. Continue Synthroid. 9. Mineral bone disorder. The patient's phosphorus levels remain elevated. Will increase Renagel to 1.6 g t.i.d. with meals. 10. Gastrointestinal and deep venous thrombosis prophylaxis. Continue PPI and Lovenox. Problems: MARIANNE RODAS MD Jul 09, 2016 08:50
--- NOTE | 2016-07-09 13:56 | CONS ---
Date/Time of Note Date/Time of Note DATE: 07/09/16 TIME: 13:55 Assessment/Plan Assessment/Plan Chief Complaint/Hosp Course IMPRESSION: 1. Preoperative evaluation prior to open reduction internal fixation of the right hip.-negative troponin x 3. NO POD#2 s/p Hip ORIF 2. History of cardiomyopathy with decreased left ventricular ejection fraction , last known to be approximately 35% by echo February 2016 with a negative stress February 2016, revealing scar but no ischemia. Echo this admit EF 30-35% 3. History of permanent pacemaker implantation for bradyarrhythmias. 4. History of coronary artery disease, status post coronary bypass graft surgery. 5. Peripheral arterial disease status post relatively recent lower extremity bypass surgery. 6. End-stage renal disease on hemodialysis. 7. Diabetes mellitus. 8. Thyroid dysfunction. 9. Cardiomyopathy with decreased left ventricular ejection fraction. 10. Status post fall. 11. Hip fracture. 12. Arm swelling-Negatuve venous BLAYNE for DVT 07/07 14. Hyponatremia Recc: -Continue metoprolol/hydralazine/statin -Not on ACEI at thie time due to intitial high k which has resolved and thus will consider change to ACEI -Pain control -Follow volume status closely with ongoing HD for volume removal -PT Problems: Consultation Date/Type/Reason Admit Date/Time Jul 02, 2016 at 16:48 Initial Consult Date 07/03/2016 Type of Consultation: Cardiology Reason for Consultation pre-op/cardiomyopathy Referring Provider: BRANDI ERICKSON DO Exam/Review of Systems Vital Signs Vitals Vital Signs Date Time Temp Pulse Resp B/P Pulse Ox O2 Delivery O2 Flow Rate FiO2 07/09/16 08:48 97.5 92 16 129/61 99 07/06/16 20:55 Nasal Cannula 2.0 Intake and Output 07/08/16 07/08/16 07/09/16 14:59 22:59 06:59 Intake Total 300 ml 700 ml 360 ml Output Total 2800 ml 0 ml Balance -2500 ml 700 ml 360 ml Exam Review of Systems: CONSTITUTIONAL: No fevers, chills. PULMONARY: No sob CARDIOVASCULAR: No chest pain/palpitations GASTROINTESTINAL: No nausea/vomiting. GENITOURINARY: No hematuria/dysuria. MUSCULOSKELETAL: mild pain at hip site PSYCHIATRIC: The patient denies depression. NEUROLOGIC: No weakness Constitutional: alert, oriented Psych: no complaints Head: normocephalic ENMT: mucosa pink and moist Neck: jvd (9 cm water), supple Respiratory: diminished breath sounds (at bases/B) Cardiovascular: regular rate and rhythm Gastrointestinal: non-tender, soft Musculoskeletal: muscle tone (yolanda) Extremities: edema (NONE) Neurological: other (NO FOCAL DEFICITS) Results Result Diagram: 07/08/16 0441 07/08/16 0441 Results 24 hrs Laboratory Tests Test 07/08/16 18:10 07/08/16 21:14 07/09/16 01:56 07/09/16 08:27 Bedside Glucose 230 H 271 H 201 154 Test 07/09/16 12:43 Bedside Glucose 165 Medications Medications Current Medications Hydralazine HCl (Apresoline) 50 mg TID PO Last administered on 07/09/16 11:59 ; Admin Dose 50 MG; Start 07/03/16 at 09:00 Atorvastatin Calcium (Lipitor) 80 mg DAILY@21 PO Last administered on 21:08; Admin Dose 80 MG; Start 07/03/16 at 21:00 Ferrous Sulfate (Ferrous Sulfate (Ec)) 325 mg DAILY PO Last administered on 08:30; Admin Dose 325 MG; Start 07/03/16 at 09:00 Escitalopram Oxalate (Lexapro) 10 mg DAILY GTB Last administered on 07/07/16 08:42; Admin Dose 10 MG; Start 07/03/16 at 09:00 Polyethylene Glycol (Miralax) 17 gm DAILY PO Last administered on 07/09/16 08: 31; Admin Dose 17 GM; Start 07/03/16 at 09:00 Multivit/Ca Carb/ B Cmplx/FA/Prenat (Billie-Roge) 1 tab DAILY PO Last administered on 07/09/16 08:31; Admin Dose 1 TAB; Start 07/03/16 at 09:00 Metoprolol Succinate (Toprol Xl) 25 mg DAILY PO Last administered on 07/09/16 08:35; Admin Dose 25 MG; Start 07/03/16 at 09:00 Gabapentin (Neurontin) 100 mg DAILY PO Last administered on 07/07/16 08:42; Admin Dose 100 MG; Start 07/03/16 at 09:00 Miscellaneous Information 1 ea NOTE XX ; Start 07/02/16 at 23:45 Glucose (Glutose) 15 gm Q15M PRN PO DECREASED GLUCOSE; Start 07/02/16 at 23:45 Glucose (Glutose) 22.5 gm Q15M PRN PO DECREASED GLUCOSE; Start 07/02/16 at 23: 45 Dextrose (D50w Syringe) 25 ml Q15M PRN IV DECREASED GLUCOSE; Start 07/02/16 at 23:45 Dextrose (D50w Syringe) 50 ml Q15M PRN IV DECREASED GLUCOSE; Start 07/02/16 at 23:45 Glucagon (Glucagen) 1 mg Q15M PRN IM DECREASED GLUCOSE; Start 07/02/16 at 23:45 Glucose (Glutose) 15 gm Q15M PRN BUCCAL DECREASED GLUCOSE; Start 07/02/16 at 23 :45 Diagnostic Test (Pha) (Accu-Chek) 1 ea 02 XX Last administered on 07/09/16 02: 27; Admin Dose 1 EA; Start 07/03/16 at 02:00 Acetaminophen/ Hydrocodone Bitart ([place] (5/325)) 1 tab Q4H PRN PO PAIN LEVEL 1 -3 Last administered on 07/09/16 11:59; Admin Dose 1 TAB; Start 07/05/16 at 09: 30 Acetaminophen/ Hydrocodone Bitart ([place] (5/325)) 2 tab Q4H PRN PO PAIN LEVEL 4 -7 Last administered on 07/07/16 10:34; Admin Dose 2 TAB; Start 07/05/16 at 09: 30 Enoxaparin Sodium (Lovenox) 40 mg DAILY SC Last administered on 07/09/16 08:42 ; Admin Dose 40 MG; Start 07/05/16 at 11:00 Ondansetron HCl (Zofran Inj) 4 mg Q6H PRN IV NAUSEA AND/OR VOMITING Last administered on 07/06/16 13:03; Admin Dose 4 MG; Start 07/05/16 at 19:00 Morphine Sulfate (morphine) 2 mg Q4H PRN IV pain Last administered on 01:20; Admin Dose 2 MG; Start 07/06/16 at 20:00 YI RODRIGUEZ Jul 09, 2016 13:56
[2016-07-09] MEDS ORDERED: BISACODYL 10 MG SUPP PR PRN (16:00)
[2016-07-09] MEDS ORDERED: NA PHOSPHATE/BIPHOS 133 ML ENEMA PR PRN (16:00)
[2016-07-09 20:04] VITALS: BP 115/58; RESP 18
[2016-07-09] MEDS: ATORVASTATIN 80 MG TAB PO SCH (21:04)
[2016-07-10] VITALS (11 sets, daily range): BP systolic 106–133; BP diastolic 44–61; PULSE 70–75; RESP 20
[2016-07-10] MEDS: ACCU-CHEK XX SCH (02:00)
[2016-07-10] MEDS: PANTOPRAZOLE (EC) 40 MG TAB PO SCH (06:44)
[2016-07-10] MEDS: REPAGLINIDE 1 MG TAB PO SCH ×4 (06:44→17:54)
[2016-07-10] MEDS: LEVOTHYROXINE 88 MCG TAB PO SCH (06:44)
[2016-07-10] MEDS: INSULIN ASPART [NOVOLOG] 3 ML PEN SC SCH ×4 (07:50→20:34)
[2016-07-10] MEDS: METOPROLOL (XL) 25 MG TAB PO SCH (09:00)
[2016-07-10] MEDS: FERROUS SULFATE (EC) 325 MG TAB PO SCH (09:11)
[2016-07-10] MEDS: GABAPENTIN 100 MG CAP PO SCH (09:11)
[2016-07-10] MEDS: MULTIVIT/CA CARB/B CMPLX/FA TAB PO SCH (09:11)
[2016-07-10] MEDS: POLYETHYLENE GLYCOL 17 GM PACKET PO SCH (09:11)
[2016-07-10] MEDS: SEVELAMER CARBONATE 0.8 GM PKT PO SCH ×3 (09:11→17:54)
[2016-07-10] MEDS: ESCITALOPRAM 10 MG TAB GTB SCH (09:12)
[2016-07-10] MEDS: ENOXAPARIN 40 MG/0.4 ML SYG SC SCH (09:13)
--- NOTE | 2016-07-10 10:51 | PN ---
DATE: 07/10/2016 SUBJECTIVE: The patient is stable. No events overnight. No fevers, chills, nausea, vomiting. OBJECTIVE: VITAL SIGNS: Blood pressure 133/61, respirations 20, pulse 87, temperature 98.2. HEENT: Head is normocephalic. NECK: Supple. HEART: Regular rate. LUNGS: Show diminished breath sounds at the base. ABDOMEN: Soft, nontender to palpation. No rebound or guarding. EXTREMITIES: Negative for clubbing, cyanosis. No edema. DERMATOLOGIC: No rashes. MUSCULOSKELETAL: No joint effusions. NEUROLOGIC: No change in exam. MEDICATIONS: The patient's medications have been reviewed. LABORATORY DATA: Currently pending. ASSESSMENT AND PLAN: 1. Right hip fracture status post open reduction internal fixation. The patient is postop day #5. Continue physical therapy. Continue DVT prophylaxis, Lovenox. 2. End-stage renal disease. Plan for dialysis today for 3 hours, 3K bath, calcium 2.5. 3. Hypertension. Continue current blood pressure regimen. Continue ultrafiltration dialysis. 4. Diabetes. Continue current insulin regimen. 5. Cardiomyopathy/coronary artery disease. Continue current medical management. 6. Peripheral vascular disease status post fem-pop. 7. Chronic pain syndrome. Continue current pain regimen. 8. Hypothyroidism. Continue Synthroid. 9. Mineral bone disorder. Continue to monitor calcium and phosphorus levels. Continue phosphate b inders. 10. GI, DVT prophylaxis. Continue proton pump inhibitor and Lovenox. Dictated By: BRANDI CHANEY/ANA Conf#: [id number] DID#: [id number]
[2016-07-10] MEDS: HYDROCODONE/APAP (5/325) TAB PO PRN (14:18)
--- NOTE | 2016-07-10 18:01 | CONS ---
Date/Time of Note Date/Time of Note DATE: 07/10/16 TIME: 17:58 Assessment/Plan Assessment/Plan Chief Complaint/Hosp Course IMPRESSION: 1. Preoperative evaluation prior to open reduction internal fixation of the right hip.-negative troponin x 3. NO POD#2 s/p Hip ORIF 2. History of cardiomyopathy with decreased left ventricular ejection fraction , last known to be approximately 35% by echo February 2016 with a negative stress February 2016, revealing scar but no ischemia. Echo this admit EF 30-35% 3. History of permanent pacemaker implantation for bradyarrhythmias. 4. History of coronary artery disease, status post coronary bypass graft surgery. 5. Peripheral arterial disease status post relatively recent lower extremity bypass surgery. 6. End-stage renal disease on hemodialysis. 7. Diabetes mellitus. 8. Thyroid dysfunction. 9. Cardiomyopathy with decreased left ventricular ejection fraction. 10. Status post fall. 11. Hip fracture. 12. Arm swelling-Negative venous BLAYNE for DVT 07/07 14. Hyponatremia Recc: -Continue metoprolol/hydralazine/statin -Not on ACEI at thie time due to intitial high k which has resolved and thus will consider change to ACEI -Pain control -Follow volume status closely with ongoing HD for volume removal -PT Problems: Consultation Date/Type/Reason Admit Date/Time Jul 02, 2016 at 16:48 Initial Consult Date 07/03/2016 Type of Consultation: Cardiology Reason for Consultation Pre-op/HTN Referring Provider: BRANDI ERICKSON DO Exam/Review of Systems Vital Signs Vitals Vital Signs Date Time Temp Pulse Resp B/P Pulse Ox O2 Delivery O2 Flow Rate FiO2 07/10/16 16:09 72 15 07/10/16 07:28 98.2 133/61 95 07/06/16 20:55 Nasal Cannula 2.0 Intake and Output 07/09/16 07/09/16 07/10/16 15:00 23:00 07:00 Intake Total 600 ml 440 ml Output Total 2 ml Balance 600 ml 438 ml Exam Review of Systems: CONSTITUTIONAL: No fevers, chills. PULMONARY: No sob CARDIOVASCULAR: No chest pain/palpitations GASTROINTESTINAL: No nausea/vomiting. GENITOURINARY: No hematuria/dysuria. MUSCULOSKELETAL: No myagias/arthalgias. PSYCHIATRIC: The patient denies depression. NEUROLOGIC: No weakness Constitutional: alert Psych: no complaints Head: normocephalic ENMT: mucosa pink and moist Neck: jvd, supple Respiratory: diminished breath sounds Cardiovascular: regular rate and rhythm Gastrointestinal: non-tender, soft Musculoskeletal: muscle tone (normal) Extremities: edema (none) Neurological: other (No focal edficits) Results Result Diagram: 07/08/16 0441 07/08/16 0441 Results 24 hrs Laboratory Tests Test 07/09/16 20:13 07/10/16 07:15 07/10/16 12:07 07/10/16 17:37 Bedside Glucose 124 86 117 135 Medications Medications Current Medications Hydralazine HCl (Apresoline) 50 mg TID PO Last administered on 07/09/16 11:59 ; Admin Dose 50 MG; Start 07/03/16 at 09:00 Atorvastatin Calcium (Lipitor) 80 mg DAILY@21 PO Last administered on 21:04; Admin Dose 80 MG; Start 07/03/16 at 21:00 Ferrous Sulfate (Ferrous Sulfate (Ec)) 325 mg DAILY PO Last administered on 07/10 09:11; Admin Dose 325 MG; Start 07/03/16 at 09:00 Escitalopram Oxalate (Lexapro) 10 mg DAILY GTB Last administered on 07/10/16 09 :12; Admin Dose 10 MG; Start 07/03/16 at 09:00 Polyethylene Glycol (Miralax) 17 gm DAILY PO Last administered on 07/10/16 09: 11; Admin Dose 17 GM; Start 07/03/16 at 09:00 Multivit/Ca Carb/ B Cmplx/FA/Prenat (Billie-Roge) 1 tab DAILY PO Last administered on 07/10/16 09:11; Admin Dose 1 TAB; Start 07/03/16 at 09:00 Metoprolol Succinate (Toprol Xl) 25 mg DAILY PO Last administered on 07/09/16 08:35; Admin Dose 25 MG; Start 07/03/16 at 09:00 Gabapentin (Neurontin) 100 mg DAILY PO Last administered on 07/10/16 09:11; Admin Dose 100 MG; Start 07/03/16 at 09:00 Miscellaneous Information 1 ea NOTE XX ; Start 07/02/16 at 23:45 Glucose (Glutose) 15 gm Q15M PRN PO DECREASED GLUCOSE; Start 07/02/16 at 23:45 Glucose (Glutose) 22.5 gm Q15M PRN PO DECREASED GLUCOSE; Start 07/02/16 at 23: 45 Dextrose (D50w Syringe) 25 ml Q15M PRN IV DECREASED GLUCOSE; Start 07/02/16 at 23:45 Dextrose (D50w Syringe) 50 ml Q15M PRN IV DECREASED GLUCOSE; Start 07/02/16 at 23:45 Glucagon (Glucagen) 1 mg Q15M PRN IM DECREASED GLUCOSE; Start 07/02/16 at 23:45 Glucose (Glutose) 15 gm Q15M PRN BUCCAL DECREASED GLUCOSE; Start 07/02/16 at 23 :45 Diagnostic Test (Pha) (Accu-Chek) 1 ea 02 XX Last administered on 07/09/16 02: 27; Admin Dose 1 EA; Start 07/03/16 at 02:00 Acetaminophen/ Hydrocodone Bitart ([place] (5/325)) 1 tab Q4H PRN PO PAIN LEVEL 1 -3 Last administered on 07/10/16 14:18; Admin Dose 1 TAB; Start 07/05/16 at 09: 30 Acetaminophen/ Hydrocodone Bitart ([place] (5/325)) 2 tab Q4H PRN PO PAIN LEVEL 4 -7 Last administered on 07/07/16 10:34; Admin Dose 2 TAB; Start 07/05/16 at 09: 30 Enoxaparin Sodium (Lovenox) 40 mg DAILY SC Last administered on 07/10/16 09:13 ; Admin Dose 40 MG; Start 07/05/16 at 11:00 Ondansetron HCl (Zofran Inj) 4 mg Q6H PRN IV NAUSEA AND/OR VOMITING Last administered on 07/06/16 13:03; Admin Dose 4 MG; Start 07/05/16 at 19:00 Morphine Sulfate (morphine) 2 mg Q4H PRN IV pain Last administered on 01:20; Admin Dose 2 MG; Start 07/06/16 at 20:00 Bisacodyl (Dulcolax Supp) 10 mg DAILY PRN CO CONSTIPATION Last administered on 07/09/16 20:16; Admin Dose 10 MG; Start 07/09/16 at 16:00 Sodium Biphosphate/ Sodium Phosphate (Fleet Enema) 133 ml DAILY PRN CO CONSTIPATION Last administered on 07/09/16t 21:50; Admin Dose 133 ML; Start at 16:00 YI RODRIGUEZ July 10, 2016 18:00
[2016-07-10] MEDS: EPOETIN 10000 UNITS/1 ML INJ (ESRD) SC SCH (20:10)
[2016-07-10] MEDS: ATORVASTATIN 80 MG TAB PO SCH (20:11)
[2016-07-11] MEDS: ACCU-CHEK XX SCH (01:36)
[2016-07-11 05:42] LABS: ADD SCAN DIFF NO
[2016-07-11 05:49] LABS: BASOPHILS % 0.1 % (0.0-2.0); EOSINOPHILS % 0.4 % (0.0-7.0); HEMATOCRIT 31.6 % (37.0-47.0); HEMOGLOBIN 9.7 g/dl (12.0-16.0); MEAN CORPUSCULAR HEMOGLOBIN 30.2 pg (29.0-33.0); MEAN CORPUSCULAR HGB CONC 30.7 g/dl (32.0-37.0); MEAN CORPUSCULAR VOLUME 98.4 fl (82.0-101.0); MEAN PLATELET VOLUME 9.9 fl (7.4-10.4); MONOCYTE # 0.7 10^3/ul (0.3-0.9); MONOCYTES % 9.6 % (0.0-11.0); NEUTROPHIL # 5.6 10^3/ul (1.6-7.5); NEUTROPHILS % 76.4 % (39.0-77.0); PLATELET COUNT 176 10^3/UL (140-415); RED BLOOD COUNT 3.21 10^6/ul (4.20-5.40); RED CELL DISTRIBUTION WIDTH 14.5 % (11.5-14.5); WHITE BLOOD COUNT 7.4 10^3/ul (4.8-10.8)
[2016-07-11 06:04] LABS: POTASSIUM 3.4 mmol/L (3.5-5.1)
[2016-07-11 06:07] LABS: CREATININE 2.87 mg/dl (0.44-1.00)
[2016-07-11 06:08] LABS: CALCIUM 7.8 mg/dl (8.4-10.2); MAGNESIUM 2.3 mg/dl (1.7-2.5); PHOSPHORUS 2.8 mg/dl (2.5-4.9)
[2016-07-11] MEDS: PANTOPRAZOLE (EC) 40 MG TAB PO SCH (06:20)
[2016-07-11] MEDS: LEVOTHYROXINE 88 MCG TAB PO SCH (06:20)
[2016-07-11 07:19] VITALS: BP 140/64; RESP 18
[2016-07-11] MEDS: INSULIN ASPART [NOVOLOG] 3 ML PEN SC SCH ×4 (07:50→20:24)
[2016-07-11] MEDS ORDERED: POTASSIUM CHLORIDE (SR) 20 MEQ TAB PO STA (08:53)
[2016-07-11] MEDS: POLYETHYLENE GLYCOL 17 GM PACKET PO SCH (09:15)
[2016-07-11] MEDS: ESCITALOPRAM 10 MG TAB GTB SCH (09:16)
[2016-07-11] MEDS: GABAPENTIN 100 MG CAP PO SCH (09:16)
[2016-07-11] MEDS: MULTIVIT/CA CARB/B CMPLX/FA TAB PO SCH (09:16)
[2016-07-11] MEDS: SEVELAMER CARBONATE 0.8 GM PKT PO SCH ×3 (09:16→17:48)
[2016-07-11] MEDS: REPAGLINIDE 1 MG TAB PO SCH ×3 (09:17→17:48)
[2016-07-11] MEDS: METOPROLOL (XL) 25 MG TAB PO SCH (09:17)
[2016-07-11] MEDS: FERROUS SULFATE (EC) 325 MG TAB PO SCH (09:17)
[2016-07-11] MEDS: ENOXAPARIN 40 MG/0.4 ML SYG SC SCH (09:19)
--- NOTE | 2016-07-11 10:03 | PN ---
DATE: 07/11/2016 SUBJECTIVE: The patient is stable. Had hemodialysis yesterday, tolerated well with 2 liters remove d. No other events noted. OBJECTIVE: VITAL SIGNS: Blood pressure 140/64, respirations 18, pulse 98, temperature 98.7. HEENT: Head is normocephalic. NECK: Supple. HEART: Regular rate. LUNGS: Show diminished breath sounds at the bases. ABDOMEN: Soft, nontender to palpation. No rebound or guarding. EXTREMITIES: Negative for clubbing, cyanosis. No edema. DERMATOLOGIC: No rashes. MUSCULOSKELETAL: The patient has dressing over her hip. Clean, dry and intact. NEUROLOGIC: No focal deficits. MEDICATIONS: The patient's medications have been reviewed. LABORATORY DATA: Shows sodium 134, potassium 3.4, BUN 29, creatinine 2.87. White count 7.4, hemogl obin 9.7, hematocrit 31.6, platelet count is 176. ASSESSMENT AND PLAN: 1. Right hip fracture, status post open reduction internal fixation. The patient is postop day #6. Continue physical therapy. Continue deep venous thrombosis prophylaxis with Lovenox. 2. End-stage renal disease. The patient had hemodialysis yesterday, tolerated well. Anticipate ne xt dialysis on Sunday. 3. Hypertension. Continue current blood pressure regimen. 4. Diabetes. Continue current insulin regimen. 5. Cardiomyopathy, coronary artery disease. Continue current medical management. 6. Peripheral vascular disease, status post fem-pop. 7. Chronic pain syndrome. Continue current pain regimen. 8. Hypothyroidism. Continue Synthroid. 9. Mineral bone disorder. Continue to monitor calcium and phosphorus levels. Continue phosphate bi nders. 10. Gastrointestinal and deep venous thrombosis prophylaxis, proton pump inhibitor and Lovenox. DISPOSITION: The patient is pending possible transfer to nursing home facility once outpatient d ialysis is arranged. Dictated By: BRANDI CHANEY/ANA Conf#: [id number] DID#: [id number]
[2016-07-11] MEDS: HYDROCODONE/APAP (5/325) TAB PO PRN (15:06)
--- NOTE | 2016-07-11 16:16 | CONS ---
Date/Time of Note Date/Time of Note DATE: 07/11/16 TIME: 16:13 Consultation Date/Type/Reason Admit Date/Time Jul 02, 2016 at 16:48 Type of Consultation: Cardiology Referring Provider: BRANDI ERICKSON DO 24 HR Interval Summary Free Text/Dictation No acute events- BP stable- in good fluid status. ROS: No fever, no chills, no nausea, no vomiting, no diarrhea/constipation No recent weight changes No chest pain, no PND, no orthopnea No dizziness, blurred vision No thirst, no heat or cold intolerance Exam/Review of Systems Vital Signs Vitals Vital Signs Date Time Temp Pulse Resp B/P Pulse Ox O2 Delivery O2 Flow Rate FiO2 07/11/16 07:19 98.7 98 18 140/64 98 Intake and Output 07/10/16 07/10/16 07/11/16 15:00 23:00 07:00 Intake Total 1920 ml 360 ml Output Total 2500 ml Balance -580 ml 360 ml Exam General: WN/WD/NAD, AOx 1-2 confused HEENT: Unicetric/atraumatic/EOMI (follow commands) NECK: JVD elevated, no thyromegaly Lymph: no lymphadenopathy HEART: regular with no S3, II/ systolic murmur at apex LUNGS: Coarse sounds ABD: soft, NT, ND, +BS : Intact Neuro: non focal SKIN: chronic changes EXT: trace edema Results Result Diagram: 07/11/16 0435 07/11/16 0435 Results 24 hrs Laboratory Tests Test 07/10/16 17:37 07/10/16 20:17 07/11/16 04:35 07/11/16 08:16 Bedside Glucose 135 135 135 White Blood Count 7.4 # Red Blood Count 3.21 L Hemoglobin 9.7 L Hematocrit 31.6 L Mean Corpuscular Volume 98.4 Mean Corpuscular Hemoglobin 30.2 Mean Corpuscular Hemoglobin Concent 30.7 L Red Cell Distribution Width 14.5 Platelet Count 176 # Mean Platelet Volume 9.9 Neutrophils % 76.4 Lymphocytes % 13.0 L Monocytes % 9.6 Eosinophils % 0.4 Basophils % 0.1 Nucleated Red Blood Cells % 0.0 Neutrophils # 5.6 Lymphocytes # 1.0 Monocytes # 0.7 Eosinophils # 0.0 Basophils # 0.0 Nucleated Red Blood Cells # 0.0 Sodium Level 134 L Potassium Level 3.4 L Chloride Level 95 L Carbon Dioxide Level 29 Anion Gap 13 Blood Urea Nitrogen 29 H Creatinine 2.87 H Glucose Level 141 Calcium Level 7.8 L Phosphorus Level 2.8 Magnesium Level 2.3 Test 07/11/16 11:50 Bedside Glucose 266 H Medications Medications Current Medications Hydralazine HCl (Apresoline) 50 mg TID PO Last administered on 07/11/16 13:06; Admin Dose 50 MG; Start 07/03/16 at 09:00 Atorvastatin Calcium (Lipitor) 80 mg DAILY@21 PO Last administered on 07/10/16 20:11; Admin Dose 80 MG; Start 07/03/16 at 21:00 Ferrous Sulfate (Ferrous Sulfate (Ec)) 325 mg DAILY PO Last administered on 07/11 09:17; Admin Dose 325 MG; Start 07/03/16 at 09:00 Escitalopram Oxalate (Lexapro) 10 mg DAILY GTB Last administered on 07/11/16 09 :16; Admin Dose 10 MG; Start 07/03/16 at 09:00 Polyethylene Glycol (Miralax) 17 gm DAILY PO Last administered on 07/11/16 09: 15; Admin Dose 17 GM; Start 07/03/16 at 09:00 Multivit/Ca Carb/ B Cmplx/FA/Prenat (Billie-Roge) 1 tab DAILY PO Last administered on 07/11/16 09:16; Admin Dose 1 TAB; Start 07/03/16 at 09:00 Metoprolol Succinate (Toprol Xl) 25 mg DAILY PO Last administered on 07/11/16 09:17; Admin Dose 25 MG; Start 07/03/16 at 09:00 Gabapentin (Neurontin) 100 mg DAILY PO Last administered on 07/11/16 09:16; Admin Dose 100 MG; Start 07/03/16 at 09:00 Miscellaneous Information 1 ea NOTE XX ; Start 07/02/16 at 23:45 Glucose (Glutose) 15 gm Q15M PRN PO DECREASED GLUCOSE; Start 07/02/16 at 23:45 Glucose (Glutose) 22.5 gm Q15M PRN PO DECREASED GLUCOSE; Start 07/02/16 at 23: 45 Dextrose (D50w Syringe) 25 ml Q15M PRN IV DECREASED GLUCOSE; Start 07/02/16 at 23:45 Dextrose (D50w Syringe) 50 ml Q15M PRN IV DECREASED GLUCOSE; Start 07/02/16 at 23:45 Glucagon (Glucagen) 1 mg Q15M PRN IM DECREASED GLUCOSE; Start 07/02/16 at 23:45 Glucose (Glutose) 15 gm Q15M PRN BUCCAL DECREASED GLUCOSE; Start 07/02/16 at 23 :45 Diagnostic Test (Pha) (Accu-Chek) 1 ea 02 XX Last administered on 07/09/16 02: 27; Admin Dose 1 EA; Start 07/03/16 at 02:00 Acetaminophen/ Hydrocodone Bitart ([place] (5/325)) 1 tab Q4H PRN PO PAIN LEVEL 1 -3 Last administered on 07/11/16 15:06; Admin Dose 1 TAB; Start 07/05/16 at 09: 30 Acetaminophen/ Hydrocodone Bitart ([place] (5/325)) 2 tab Q4H PRN PO PAIN LEVEL 4 -7 Last administered on 07/07/16 10:34; Admin Dose 2 TAB; Start 07/05/16 at 09: 30 Enoxaparin Sodium (Lovenox) 40 mg DAILY SC Last administered on 07/11/16 09:19 ; Admin Dose 40 MG; Start 07/05/16 at 11:00 Ondansetron HCl (Zofran Inj) 4 mg Q6H PRN IV NAUSEA AND/OR VOMITING Last administered on 07/06/16 13:03; Admin Dose 4 MG; Start 07/05/16 at 19:00 Morphine Sulfate (morphine) 2 mg Q4H PRN IV pain Last administered on 01:20; Admin Dose 2 MG; Start 07/06/16 at 20:00 Bisacodyl (Dulcolax Supp) 10 mg DAILY PRN [place] CONSTIPATION Last administered on 07/09/16 20:16; Admin Dose 10 MG; Start 07/09/16 at 16:00 Sodium Biphosphate/ Sodium Phosphate (Fleet Enema) 133 ml DAILY PRN [place] CONSTIPATION Last administered on 07/09/16 21:50; Admin Dose 133 ML; Start at 16:00 PEDRO LUIS HUTTON MD July 11, 2016 16:16
--- NOTE | 2016-07-11 18:47 | CONS ---
Date/Time of Note Date/Time of Note DATE: 07/11/16 TIME: 18:47 Assessment/Plan Assessment/Plan Chief Complaint/Hosp Course ANEMIA- COMPLEX MULTIFACTORIAL MONITOR BLOOD COUNT CLOSELY OBSERVE FOR BLEEDING AND HEMOLYSIS TRANSFUSE PRBC TO KEEP HB ABOVE 8 CONT EPO WITH HD Right hip fracture, status post open reduction internal fixation. The patient is postop day #2. Plan is to continue physical therapy. Continue deep vein thrombosis prophylaxis with Lovenox. Follow up with Dr. Maria for further recommendations. End-stage renal disease. Hypertension. Continue the current blood pressure regimen. Continue ultrafiltration dialysis. Diabetes. Continue the current insulin regimen. Cardiomyopathy/coronary artery disease. Continue the current treatment plan. Follow up with cardiology for further recommendations. History of peripheral vascular disease. Status post fem-pop. Chronic pain syndrome. Etiology is postoperative pain. Continue the current pain regimen. Hypothyroidism. Continue Synthroid. Mineral bone disorder. The patient's phosphorus levels remain elevated. Will increase Renagel to 1.6 g t.i.d. with meals. Gastrointestinal and deep venous thrombosis prophylaxis. Continue PPI and Lovenox. Problems: Consultation Date/Type/Reason Admit Date/Time Jul 02, 2016 at 16:48 Initial Consult Date Type of Consultation: [facility] Referring Provider: BRANDI ERICKSON DO 24 HR Interval Summary Free Text/Dictation No acute events- BP stable- in good fluid status. H/H STABLE ROS: No fever, no chills, no nausea, no vomiting, no diarrhea/constipation No recent weight changes No chest pain, no PND, no orthopnea No dizziness, blurred vision No thirst, no heat or cold intolerance Exam/Review of Systems Vital Signs Vitals Vital Signs Date Time Temp Pulse Resp B/P Pulse Ox O2 Delivery O2 Flow Rate FiO2 07/11/16 07:19 98.7 98 18 140/64 98 Intake and Output 07/10/16 07/10/16 07/11/16 15:00 23:00 07:00 Intake Total 1920 ml 360 ml Output Total 2500 ml Balance -580 ml 360 ml Exam Exam General: WN/WD/NAD, AOx 1-2 confused HEENT: Unicetric/atraumatic/EOMI (follow commands) NECK: JVD elevated, no thyromegaly Lymph: no lymphadenopathy HEART: regular with no S3, II/ systolic murmur at apex LUNGS: Coarse sounds ABD: soft, NT, ND, +BS : Intact Neuro: non focal SKIN: chronic changes EXT: trace edema Results Result Diagram: 07/11/16 0435 07/11/16 0435 Results 24 hrs Laboratory Tests Test 07/10/16 20:17 07/11/16 04:35 07/11/16 08:16 07/11/16 11:50 Bedside Glucose 135 135 266 H White Blood Count 7.4 # Red Blood Count 3.21 L Hemoglobin 9.7 L Hematocrit 31.6 L Mean Corpuscular Volume 98.4 Mean Corpuscular Hemoglobin 30.2 Mean Corpuscular Hemoglobin Concent 30.7 L Red Cell Distribution Width 14.5 Platelet Count 176 # Mean Platelet Volume 9.9 Neutrophils % 76.4 Lymphocytes % 13.0 L Monocytes % 9.6 Eosinophils % 0.4 Basophils % 0.1 Nucleated Red Blood Cells % 0.0 Neutrophils # 5.6 Lymphocytes # 1.0 Monocytes # 0.7 Eosinophils # 0.0 Basophils # 0.0 Nucleated Red Blood Cells # 0.0 Sodium Level 134 L Potassium Level 3.4 L Chloride Level 95 L Carbon Dioxide Level 29 Anion Gap 13 Blood Urea Nitrogen 29 H Creatinine 2.87 H Glucose Level 141 Calcium Level 7.8 L Phosphorus Level 2.8 Magnesium Level 2.3 Test 07/11/16 17:27 Bedside Glucose 309 H Medications Medications Current Medications Hydralazine HCl (Apresoline) 50 mg TID PO Last administered on 07/11/16 13:06; Admin Dose 50 MG; Start 07/03/16 at 09:00 Atorvastatin Calcium (Lipitor) 80 mg DAILY@21 PO Last administered on 07/10/16 20:11; Admin Dose 80 MG; Start 07/03/16 at 21:00 Ferrous Sulfate (Ferrous Sulfate (Ec)) 325 mg DAILY PO Last administered on 07/11 09:17; Admin Dose 325 MG; Start 07/03/16 at 09:00 Escitalopram Oxalate (Lexapro) 10 mg DAILY GTB Last administered on 07/11/16 09 :16; Admin Dose 10 MG; Start 07/03/16 at 09:00 Polyethylene Glycol (Miralax) 17 gm DAILY PO Last administered on 07/11/16 09: 15; Admin Dose 17 GM; Start 07/03/16 at 09:00 Multivit/Ca Carb/ B Cmplx/FA/Prenat (Billie-Roge) 1 tab DAILY PO Last administered on 07/11/16 09:16; Admin Dose 1 TAB; Start 07/03/16 at 09:00 Metoprolol Succinate (Toprol Xl) 25 mg DAILY PO Last administered on 07/11/16 09:17; Admin Dose 25 MG; Start 07/03/16 at 09:00 Gabapentin (Neurontin) 100 mg DAILY PO Last administered on 07/11/16 09:16; Admin Dose 100 MG; Start 07/03/16 at 09:00 Miscellaneous Information 1 ea NOTE XX ; Start 07/02/16 at 23:45 Glucose (Glutose) 15 gm Q15M PRN PO DECREASED GLUCOSE; Start 07/02/16 at 23:45 Glucose (Glutose) 22.5 gm Q15M PRN PO DECREASED GLUCOSE; Start 07/02/16 at 23: 45 Dextrose (D50w Syringe) 25 ml Q15M PRN IV DECREASED GLUCOSE; Start 07/02/16 at 23:45 Dextrose (D50w Syringe) 50 ml Q15M PRN IV DECREASED GLUCOSE; Start 07/02/16 at 23:45 Glucagon (Glucagen) 1 mg Q15M PRN IM DECREASED GLUCOSE; Start 07/02/16 at 23:45 Glucose (Glutose) 15 gm Q15M PRN BUCCAL DECREASED GLUCOSE; Start 07/02/16 at 23 :45 Diagnostic Test (Pha) (Accu-Chek) 1 ea 02 XX Last administered on 07/09/16 02: 27; Admin Dose 1 EA; Start 07/03/16 at 02:00 Acetaminophen/ Hydrocodone Bitart ([place] (5/325)) 1 tab Q4H PRN PO PAIN LEVEL 1 -3 Last administered on 07/11/16 15:06; Admin Dose 1 TAB; Start 07/05/16 at 09: 30 Acetaminophen/ Hydrocodone Bitart ([place] (5/325)) 2 tab Q4H PRN PO PAIN LEVEL 4 -7 Last administered on 07/07/16 10:34; Admin Dose 2 TAB; Start 07/05/16 at 09: 30 Enoxaparin Sodium (Lovenox) 40 mg DAILY SC Last administered on 07/11/16 09:19 ; Admin Dose 40 MG; Start 07/05/16 at 11:00 Ondansetron HCl (Zofran Inj) 4 mg Q6H PRN IV NAUSEA AND/OR VOMITING Last administered on 07/06/16 13:03; Admin Dose 4 MG; Start 07/05/16 at 19:00 Morphine Sulfate (morphine) 2 mg Q4H PRN IV pain Last administered on 01:20; Admin Dose 2 MG; Start 07/06/16 at 20:00 Bisacodyl (Dulcolax Supp) 10 mg DAILY PRN [place] CONSTIPATION Last administered on 07/09/16 20:16; Admin Dose 10 MG; Start 07/09/16 at 16:00 Sodium Biphosphate/ Sodium Phosphate (Fleet Enema) 133 ml DAILY PRN [place] CONSTIPATION Last administered on 07/09/16 21:50; Admin Dose 133 ML; Start at 16:00 FABY HORN MD July 11, 2016 18:47
[2016-07-11 19:28] VITALS: BP 107/55; RESP 17
[2016-07-11] MEDS: ATORVASTATIN 80 MG TAB PO SCH (20:21)
[2016-07-12] VITALS (7 sets, daily range): BP systolic 101–115; BP diastolic 50–57; PULSE 69–82; RESP 18–20
[2016-07-12] MEDS: ACCU-CHEK XX SCH (02:00)
[2016-07-12] MEDS: PANTOPRAZOLE (EC) 40 MG TAB PO SCH (06:20)
[2016-07-12] MEDS: LEVOTHYROXINE 88 MCG TAB PO SCH (06:20)
[2016-07-12] MEDS: FERROUS SULFATE (EC) 325 MG TAB PO SCH (08:53)
[2016-07-12] MEDS: ESCITALOPRAM 10 MG TAB GTB SCH (08:53)
[2016-07-12] MEDS: SEVELAMER CARBONATE 0.8 GM PKT PO SCH ×3 (08:53→18:38)
[2016-07-12] MEDS: REPAGLINIDE 1 MG TAB PO SCH ×3 (08:53→18:38)
[2016-07-12] MEDS: GABAPENTIN 100 MG CAP PO SCH (08:53)
[2016-07-12] MEDS: ENOXAPARIN 40 MG/0.4 ML SYG SC SCH (08:55)
[2016-07-12] MEDS: INSULIN ASPART [NOVOLOG] 3 ML PEN SC SCH ×3 (08:56→18:41)
[2016-07-12] MEDS: POLYETHYLENE GLYCOL 17 GM PACKET PO SCH (08:58)
[2016-07-12] MEDS: METOPROLOL (XL) 25 MG TAB PO SCH (08:59)
[2016-07-12] MEDS: MULTIVIT/CA CARB/B CMPLX/FA TAB PO SCH (09:04)
--- NOTE | 2016-07-12 09:17 | CONS ---
Date/Time of Note Date/Time of Note DATE: 07/12/16 TIME: 09:16 Consult Date/Type/Reason Admit Date/Time Jul 02, 2016 at 16:48 Type of Consultation: nephrology Ordering Provider: BRANDI ERICKSON [email or web address] planning On HD this am no new events Objective Vital Signs Date Time Temp Pulse Resp B/P Pulse Ox O2 Delivery O2 Flow Rate FiO2 07/12/16 08:25 98.7 95 18 115/53 95 Intake and Output 07/11/16 07/11/16 07/12/16 15:00 23:00 07:00 Intake Total 250 ml Output Total 0 ml Balance 250 ml Results/Medications Result Diagram: 07/11/16 0435 07/11/16 0435 Results 24 hrs Laboratory Tests Test 07/11/16 11:50 07/11/16 17:27 07/11/16 20:20 07/12/16 01:52 Bedside Glucose 266 H 309 H 239 H 183 Test 07/12/16 08:13 Bedside Glucose 243 H Medications Current Medications Hydralazine HCl (Apresoline) 50 mg TID PO Last administered on 07/12/16 08:58; Admin Dose 50 MG; Start 07/03/16 at 09:00 Atorvastatin Calcium (Lipitor) 80 mg DAILY@21 PO Last administered on 07/11/16 20:21; Admin Dose 80 MG; Start 07/03/16 at 21:00 Ferrous Sulfate (Ferrous Sulfate (Ec)) 325 mg DAILY PO Last administered on 07/12 08:53; Admin Dose 325 MG; Start 07/03/16 at 09:00 Escitalopram Oxalate (Lexapro) 10 mg DAILY GTB Last administered on 07/12/16 08 :53; Admin Dose 10 MG; Start 07/03/16 at 09:00 Polyethylene Glycol (Miralax) 17 gm DAILY PO Last administered on 07/12/16 08: 58; Admin Dose 17 GM; Start 07/03/16 at 09:00 Multivit/Ca Carb/ B Cmplx/FA/Prenat (Billie-Roge) 1 tab DAILY PO Last administered on 07/12/16 09:04; Admin Dose 1 TAB; Start 07/03/16 at 09:00 Metoprolol Succinate (Toprol Xl) 25 mg DAILY PO Last administered on 07/12/16 08:59; Admin Dose 25 MG; Start 07/03/16 at 09:00 Gabapentin (Neurontin) 100 mg DAILY PO Last administered on 07/12/16 08:53; Admin Dose 100 MG; Start 07/03/16 at 09:00 Miscellaneous Information 1 ea NOTE XX ; Start 07/02/16 at 23:45 Glucose (Glutose) 15 gm Q15M PRN PO DECREASED GLUCOSE; Start 07/02/16 at 23:45 Glucose (Glutose) 22.5 gm Q15M PRN PO DECREASED GLUCOSE; Start 07/02/16 at 23: 45 Dextrose (D50w Syringe) 25 ml Q15M PRN IV DECREASED GLUCOSE; Start 07/02/16 at 23:45 Dextrose (D50w Syringe) 50 ml Q15M PRN IV DECREASED GLUCOSE; Start 07/02/16 at 23:45 Glucagon (Glucagen) 1 mg Q15M PRN IM DECREASED GLUCOSE; Start 07/02/16 at 23:45 Glucose (Glutose) 15 gm Q15M PRN BUCCAL DECREASED GLUCOSE; Start 07/02/16 at 23 :45 Diagnostic Test (Pha) (Accu-Chek) 1 ea 02 XX Last administered on 07/09/16 02: 27; Admin Dose 1 EA; Start 07/03/16 at 02:00 Acetaminophen/ Hydrocodone Bitart ([place] (5/325)) 1 tab Q4H PRN PO PAIN LEVEL 1 -3 Last administered on 07/11/16 15:06; Admin Dose 1 TAB; Start 07/05/16 at 09: 30 Acetaminophen/ Hydrocodone Bitart ([place] (5/325)) 2 tab Q4H PRN PO PAIN LEVEL 4 -7 Last administered on 07/07/16 10:34; Admin Dose 2 TAB; Start 07/05/16 at 09: 30 Enoxaparin Sodium (Lovenox) 40 mg DAILY SC Last administered on 07/12/16 08:55 ; Admin Dose 40 MG; Start 07/05/16 at 11:00 Ondansetron HCl (Zofran Inj) 4 mg Q6H PRN IV NAUSEA AND/OR VOMITING Last administered on 07/06/16 13:03; Admin Dose 4 MG; Start 07/05/16 at 19:00 Morphine Sulfate (morphine) 2 mg Q4H PRN IV pain Last administered on 01:20; Admin Dose 2 MG; Start 07/06/16 at 20:00 Bisacodyl (Dulcolax Supp) 10 mg DAILY PRN [place] CONSTIPATION Last administered on 07/09/16 20:16; Admin Dose 10 MG; Start 07/09/16 at 16:00 Sodium Biphosphate/ Sodium Phosphate (Fleet Enema) 133 ml DAILY PRN [place] CONSTIPATION Last administered on 07/09/16 21:50; Admin Dose 133 ML; Start at 16:00 Assessment/Plan Chief Complaint/Hosp Course 1. Right hip fracture, status post open reduction internal fixation. The patient is postop day #7. Plan is to continue physical therapy. Continue deep vein thrombosis prophylaxis with Lovenox. Follow up with Dr. Maria for further recommendations. 2. End-stage renal disease. hd today, watch lytes and volume status. 3. Hypertension. Continue the current blood pressure regimen. Continue ultrafiltration dialysis. 4. Diabetes. Continue the current insulin regimen. 5. Cardiomyopathy/coronary artery disease. Continue the current treatment plan. Follow up with cardiology for further recommendations. 6. History of peripheral vascular disease. Status post fem-pop. 7. Chronic pain syndrome. Etiology is postoperative pain. Continue the current pain regimen. 8. Hypothyroidism. Continue Synthroid. 9. Mineral bone disorder. The patient's phosphorus levels remain elevated. Will increase Renagel to 1.6 g t.i.d. with meals. 10. Gastrointestinal and deep venous thrombosis prophylaxis. Continue PPI and Lovenox. dc plan to snf Problems: MARIANNE RODAS MD July 12, 2016 09:17
--- NOTE | 2016-07-12 09:22 | CONS ---
Date/Time of Note Date/Time of Note DATE: 07/10/16 TIME: 09:21 vk le Assessment/Plan Assessment/Plan Chief Complaint/Hosp Course ANEMIA- COMPLEX MULTIFACTORIAL MONITOR BLOOD COUNT CLOSELY OBSERVE FOR BLEEDING AND HEMOLYSIS TRANSFUSE PRBC TO KEEP HB ABOVE 8 CONT EPO WITH HD Right hip fracture, status post open reduction internal fixation. The patient is postop day #2. Plan is to continue physical therapy. Continue deep vein thrombosis prophylaxis with Lovenox. Follow up with Dr. Maria for further recommendations. End-stage renal disease. Hypertension. Continue the current blood pressure regimen. Continue ultrafiltration dialysis. Diabetes. Continue the current insulin regimen. Cardiomyopathy/coronary artery disease. Continue the current treatment plan. Follow up with cardiology for further recommendations. History of peripheral vascular disease. Status post fem-pop. Chronic pain syndrome. Etiology is postoperative pain. Continue the current pain regimen. Hypothyroidism. Continue Synthroid. Mineral bone disorder. The patient's phosphorus levels remain elevated. Will increase Renagel to 1.6 g t.i.d. with meals. Gastrointestinal and deep venous thrombosis prophylaxis. Continue PPI and Lovenox. Problems: Consultation Date/Type/Reason Admit Date/Time Jul 02, 2016 at 16:48 Date of Consultation: July 10, 2016 Type of Consultation: hemeonc Reason for Consultation anemia Referring Provider: BRANDI ERICKSON of Present Illness Ms. Clark is an 75-year-old female well known to myself with a history of end-stage renal disease on hemodialysis, peripheral vascular disease, status post relatively recent right lower extremity bypass at [place] coronary artery disease, status post coronary artery bypass grafting and chronic anemia. Cardiac arrhythmia with episodes of bradycardia, now status post permanent pacemaker, diabetes mellitus, hypertension, cardiomyopathy with decreased left ventricular ejection fraction last known to be by echo at outside hospital in , revealing an EF of 35%, akinetic inferior basal and inferior mid segment , mild mitral and aortic valve regurgitation and moderate tricuspid regurgitation. The patient now presents status post fall, complains of hip pain. Upon arrival, afebrile, blood pressure 131/47, pulse 65, satting 100%. The patient's labs, a white count of 8.3, hemoglobin 10.9, platelet count 140. Sodium 133, potassium 4.8, creatinine of 4.6, BUN of 62. Troponin negative. INR of 1.1. The patient underwent a hip x-ray revealing acute fracture to the distal neck of the proximal right femur. MaRked vascular calculations of superficial femoral artery and common femoral artery. The patient had a chest x-ray that revealed cardiomegaly, dual chamber, cardiac pacemaker in the left upper chest. Cervical spine CT revealing no acute fractures or traumatic misalignment, moderate discogenic disease at C5-C6, mild to moderate right neural foraminal stenosis C4-C5 and bulky circumferential calcific plaques. Additionally, the patient had a head CT revealing chronic small vessel ischemic changes, vascular calcifications, idiopathic basal ganglionic calcifications, no evidence for intracranial mass or acute intracranial hemorrhage. PT UNDERWENT SURGERY I WAS ASKED TO PROVIDE HEMEONC CONSULT RE ANEMIA PAST MEDICAL HISTORY: As above in HPI. MEDICATIONS CURRENTLY IN HOSPITAL: 1. Lipitor 80 mg at bedtime. 2. Epogen. 3. Hydralazine 50 mg p.o. t.i.d. 4. Ferrous sulfate 300 mg daily. 5. Lexapro 10 mg daily. 6. Toprol-XL 25 mg daily. 7. Neurontin 100 mg daily. 8. Renvela. 9. Synthroid 88 mcg daily. 10. Protonix 40 mg daily. 11. Insulin sliding scale. ALLERGIES: NO KNOWN DRUG ALLERGIES. SOCIAL HISTORY: No current tobacco, ETOH or illicit drug use. FAMILY HISTORY: No history of sudden cardiac or early CAD. REVIEW OF SYSTEMS: As above in HPI. CONSTITUTIONAL: No fevers, chills. PULMONARY: No current signs of respiratory compromise. GASTROINTESTINAL: No vomiting. GENITOURINARY: End-stage renal disease. PSYCHIATRIC: No documented psych history. NEUROLOGIC: No documented history of CVA. ENDOCRINE: Thyroid disease, diabetes mellitus. Psychological: no complaints Social History Smoking Status: Never smoker Exam/Review of Systems Vital Signs Vitals Vital Signs Date Time Temp Pulse Resp B/P Pulse Ox O2 Delivery O2 Flow Rate FiO2 07/12/16 08:25 98.7 95 18 115/53 95 Intake and Output 07/11/16 07/11/16 07/12/16 15:00 23:00 07:00 Intake Total 250 ml Output Total 0 ml Balance 250 ml Exam HEENT: Head is normocephalic. NECK: Supple. HEART: Regular rate. LUNGS: Showed diminished breath sounds at the base. ABDOMEN: Soft, nontender to palpation. No rebound or guarding. EXTREMITIES: Negative for clubbing or cyanosis. No edema. MUSCULOSKELETAL: The patient has a dressing over her right hip that is clean, dry, and intact. DERMATOLOGIC: No rashes. NEUROLOGIC: No focal deficits. Results Result Diagram: 07/11/16 0435 07/11/16 0435 Results 24 hrs Laboratory Tests Test 07/11/16 11:50 07/11/16 17:27 07/11/16 20:20 07/12/16 01:52 Bedside Glucose 266 H 309 H 239 H 183 Test 07/12/16 08:13 Bedside Glucose 243 H Medications Medications Current Medications Hydralazine HCl (Apresoline) 50 mg TID PO Last administered on 07/12/16 08:58; Admin Dose 50 MG; Start 07/03/16 at 09:00 Atorvastatin Calcium (Lipitor) 80 mg DAILY@21 PO Last administered on 07/11/16 20:21; Admin Dose 80 MG; Start 07/03/16 at 21:00 Ferrous Sulfate (Ferrous Sulfate (Ec)) 325 mg DAILY PO Last administered on 07/12 08:53; Admin Dose 325 MG; Start 07/03/16 at 09:00 Escitalopram Oxalate (Lexapro) 10 mg DAILY GTB Last administered on 07/12/16 08 :53; Admin Dose 10 MG; Start 07/03/16 at 09:00 Polyethylene Glycol (Miralax) 17 gm DAILY PO Last administered on 07/12/16 08: 58; Admin Dose 17 GM; Start 07/03/16 at 09:00 Multivit/Ca Carb/ B Cmplx/FA/Prenat (Billie-Roge) 1 tab DAILY PO Last administered on 07/12/16 09:04; Admin Dose 1 TAB; Start 07/03/16 at 09:00 Metoprolol Succinate (Toprol Xl) 25 mg DAILY PO Last administered on 07/12/16 08:59; Admin Dose 25 MG; Start 07/03/16 at 09:00 Gabapentin (Neurontin) 100 mg DAILY PO Last administered on 07/12/16 08:53; Admin Dose 100 MG; Start 07/03/16 at 09:00 Miscellaneous Information 1 ea NOTE XX ; Start 07/02/16 at 23:45 Glucose (Glutose) 15 gm Q15M PRN PO DECREASED GLUCOSE; Start 07/02/16 at 23:45 Glucose (Glutose) 22.5 gm Q15M PRN PO DECREASED GLUCOSE; Start 07/02/16 at 23: 45 Dextrose (D50w Syringe) 25 ml Q15M PRN IV DECREASED GLUCOSE; Start 07/02/16 at 23:45 Dextrose (D50w Syringe) 50 ml Q15M PRN IV DECREASED GLUCOSE; Start 07/02/16 at 23:45 Glucagon (Glucagen) 1 mg Q15M PRN IM DECREASED GLUCOSE; Start 07/02/16 at 23:45 Glucose (Glutose) 15 gm Q15M PRN BUCCAL DECREASED GLUCOSE; Start 07/02/16 at 23 :45 Diagnostic Test (Pha) (Accu-Chek) 1 ea 02 XX Last administered on 07/09/16 02: 27; Admin Dose 1 EA; Start 07/03/16 at 02:00 Acetaminophen/ Hydrocodone Bitart ([place] (5/325)) 1 tab Q4H PRN PO PAIN LEVEL 1 -3 Last administered on 07/11/16 15:06; Admin Dose 1 TAB; Start 07/05/16 at 09: 30 Acetaminophen/ Hydrocodone Bitart ([place] (5/325)) 2 tab Q4H PRN PO PAIN LEVEL 4 -7 Last administered on 07/07/16 10:34; Admin Dose 2 TAB; Start 07/05/16 at 09: 30 Enoxaparin Sodium (Lovenox) 40 mg DAILY SC Last administered on 07/12/16 08:55 ; Admin Dose 40 MG; Start 07/05/16 at 11:00 Ondansetron HCl (Zofran Inj) 4 mg Q6H PRN IV NAUSEA AND/OR VOMITING Last administered on 07/06/16 13:03; Admin Dose 4 MG; Start 07/05/16 at 19:00 Morphine Sulfate (morphine) 2 mg Q4H PRN IV pain Last administered on 01:20; Admin Dose 2 MG; Start 07/06/16 at 20:00 Bisacodyl (Dulcolax Supp) 10 mg DAILY PRN [place] CONSTIPATION Last administered on 07/09/16 20:16; Admin Dose 10 MG; Start 07/09/16 at 16:00 Sodium Biphosphate/ Sodium Phosphate (Fleet Enema) 133 ml DAILY PRN [place] CONSTIPATION Last administered on 4/30/17at 21:50; Admin Dose 133 ML; Start at 16:00 FABY HORN MD July 12, 2016 09:22
--- NOTE | 2016-07-12 09:22 | CONS ---
Date/Time of Note Date/Time of Note DATE: 07/12/16 TIME: 09:22 Assessment/Plan Assessment/Plan Chief Complaint/Hosp Course ANEMIA- COMPLEX MULTIFACTORIAL MONITOR BLOOD COUNT CLOSELY OBSERVE FOR BLEEDING AND HEMOLYSIS TRANSFUSE PRBC TO KEEP HB ABOVE 8 CONT EPO WITH HD Right hip fracture, status post open reduction internal fixation. The patient is postop day #2. Plan is to continue physical therapy. Continue deep vein thrombosis prophylaxis with Lovenox. Follow up with Dr. Maria for further recommendations. End-stage renal disease. Hypertension. Continue the current blood pressure regimen. Continue ultrafiltration dialysis. Diabetes. Continue the current insulin regimen. Cardiomyopathy/coronary artery disease. Continue the current treatment plan. Follow up with cardiology for further recommendations. History of peripheral vascular disease. Status post fem-pop. Chronic pain syndrome. Etiology is postoperative pain. Continue the current pain regimen. Hypothyroidism. Continue Synthroid. Mineral bone disorder. Gastrointestinal and deep venous thrombosis prophylaxis. Continue PPI and Lovenox. Problems: Consultation Date/Type/Reason Admit Date/Time Jul 02, 2016 at 16:48 [facility] Referring Provider: BRANDI ERICKSON DO 24 HR Interval Summary Free Text/Dictation NO NEW EVENTS DOING WELL Exam/Review of Systems Vital Signs Vitals Vital Signs Date Time Temp Pulse Resp B/P Pulse Ox O2 Delivery O2 Flow Rate FiO2 07/12/16 08:25 98.7 95 18 115/53 95 Intake and Output 07/11/16 07/11/16 07/12/16 15:00 23:00 07:00 Intake Total 250 ml Output Total 0 ml Balance 250 ml Exam Exam General: WN/WD/NAD, AOx 1-2 confused HEENT: Unicetric/atraumatic/EOMI (follow commands) NECK: JVD elevated, no thyromegaly Lymph: no lymphadenopathy HEART: regular with no S3, II/ systolic murmur at apex LUNGS: Coarse sounds ABD: soft, NT, ND, +BS : Intact Neuro: non focal SKIN: chronic changes EXT: trace edema Results Result Diagram: 07/11/16 0435 07/11/16 0435 Results 24 hrs Laboratory Tests Test 07/11/16 11:50 07/11/16 17:27 07/11/16 20:20 07/12/16 01:52 Bedside Glucose 266 H 309 H 239 H 183 Test 07/12/16 08:13 Bedside Glucose 243 H Medications Medications Current Medications Hydralazine HCl (Apresoline) 50 mg TID PO Last administered on 07/12/16 08:58; Admin Dose 50 MG; Start 07/03/16 at 09:00 Atorvastatin Calcium (Lipitor) 80 mg DAILY@21 PO Last administered on 07/11/16 20:21; Admin Dose 80 MG; Start 07/03/16 at 21:00 Ferrous Sulfate (Ferrous Sulfate (Ec)) 325 mg DAILY PO Last administered on 07/12 08:53; Admin Dose 325 MG; Start 07/03/16 at 09:00 Escitalopram Oxalate (Lexapro) 10 mg DAILY GTB Last administered on 07/12/16 08 :53; Admin Dose 10 MG; Start 07/03/16 at 09:00 Polyethylene Glycol (Miralax) 17 gm DAILY PO Last administered on 07/12/16 08: 58; Admin Dose 17 GM; Start 07/03/16 at 09:00 Multivit/Ca Carb/ B Cmplx/FA/Prenat (Billie-Roge) 1 tab DAILY PO Last administered on 07/12/16 09:04; Admin Dose 1 TAB; Start 07/03/16 at 09:00 Metoprolol Succinate (Toprol Xl) 25 mg DAILY PO Last administered on 07/12/16 08:59; Admin Dose 25 MG; Start 07/03/16 at 09:00 Gabapentin (Neurontin) 100 mg DAILY PO Last administered on 07/12/16 08:53; Admin Dose 100 MG; Start 07/03/16 at 09:00 Miscellaneous Information 1 ea NOTE XX ; Start 07/02/16 at 23:45 Glucose (Glutose) 15 gm Q15M PRN PO DECREASED GLUCOSE; Start 07/02/16 at 23:45 Glucose (Glutose) 22.5 gm Q15M PRN PO DECREASED GLUCOSE; Start 07/02/16 at 23: 45 Dextrose (D50w Syringe) 25 ml Q15M PRN IV DECREASED GLUCOSE; Start 07/02/16 at 23:45 Dextrose (D50w Syringe) 50 ml Q15M PRN IV DECREASED GLUCOSE; Start 07/02/16 at 23:45 Glucagon (Glucagen) 1 mg Q15M PRN IM DECREASED GLUCOSE; Start 07/02/16 at 23:45 Glucose (Glutose) 15 gm Q15M PRN BUCCAL DECREASED GLUCOSE; Start 07/02/16 at 23 :45 Diagnostic Test (Pha) (Accu-Chek) 1 ea 02 XX Last administered on 07/09/16 02: 27; Admin Dose 1 EA; Start 07/03/16 at 02:00 Acetaminophen/ Hydrocodone Bitart ([place] (5/325)) 1 tab Q4H PRN PO PAIN LEVEL 1 -3 Last administered on 07/11/16 15:06; Admin Dose 1 TAB; Start 07/05/16 at 09: 30 Acetaminophen/ Hydrocodone Bitart ([place] (5/325)) 2 tab Q4H PRN PO PAIN LEVEL 4 -7 Last administered on 07/07/16 10:34; Admin Dose 2 TAB; Start 07/05/16 at 09: 30 Enoxaparin Sodium (Lovenox) 40 mg DAILY SC Last administered on 07/12/16 08:55 ; Admin Dose 40 MG; Start 07/05/16 at 11:00 Ondansetron HCl (Zofran Inj) 4 mg Q6H PRN IV NAUSEA AND/OR VOMITING Last administered on 07/06/16 13:03; Admin Dose 4 MG; Start 07/05/16 at 19:00 Morphine Sulfate (morphine) 2 mg Q4H PRN IV pain Last administered on 01:20; Admin Dose 2 MG; Start 07/06/16 at 20:00 Bisacodyl (Dulcolax Supp) 10 mg DAILY PRN [place] CONSTIPATION Last administered on 07/09/16 20:16; Admin Dose 10 MG; Start 07/09/16 at 16:00 Sodium Biphosphate/ Sodium Phosphate (Fleet Enema) 133 ml DAILY PRN [place] CONSTIPATION Last administered on 07/09/16 21:50; Admin Dose 133 ML; Start at 16:00 FABY HORN MD July 12, 2016 09:22
[2016-07-12] MEDS: HYDROCODONE/APAP (5/325) TAB PO PRN (16:26)
[2016-07-12] MEDS: EPOETIN 10000 UNITS/1 ML INJ (ESRD) SC SCH (18:39)
[2016-07-13] MEDS ORDERED: ENOXAPARIN 30 MG/0.3 ML SYG SC SCH (09:00)
== END 2016-07-12 21:00 | DRG 469 ==
LOC: E/R 14:47 → MS1 16:48
PROVIDERS: ADMIT Internal Medicine; ATTEND Internal Medicine
PROC: 0SRR0JZ Replacement of Right Hip Joint, Femoral Surface with Synthetic Substitute, Open Approach (ICD-10-PCS; principal; 2016-07-05 07:30)
DX: S72.011A Unspecified intracapsular fracture of right femur, initial encounter for closed fracture (principal); N18.6 End stage renal disease; I12.0 Hypertensive chronic kidney disease with stage 5 chronic kidney disease or end stage renal disease; I42.9 Cardiomyopathy, unspecified; E11.22 Type 2 diabetes mellitus with diabetic chronic kidney disease; E87.1 Hypo-osmolality and hyponatremia; Z99.2 Dependence on renal dialysis; Z95.1 Presence of aortocoronary bypass graft; W19.XXXA Unspecified fall, initial encounter; E87.5 Hyperkalemia; Z95.0 Presence of cardiac pacemaker; E11.9 Type 2 diabetes mellitus without complications; E87.6 Hypokalemia; E03.9 Hypothyroidism, unspecified; G89.4 Chronic pain syndrome; R60.1 Generalized edema
CPT/HCPCS: 36415; 70450; 71010; 72125; 72170; 73510; 80048; 80061; 80076; 82550; 82553; 82962; 83735; 84100; 84484; 85014; 85018; 85025; 85610; 85730; 86850; 86900; 86901; 86920; 87086; 88304; 88311; 90935; 93005; 93306; 93971; 96374; 96375; 97110; 97116; 97163; 97530; J0330; J0690; J0886; J1170; J1650; J1815; J2175; J2270; J2405; J2710; J7030; J7040; J7042

== ENCOUNTER 2016-07-12 15:12 | Inpatient (IN) | payer MEDICARE, OTHER ==
[~2016-07-12] VITALS: Ht 165.1 cm; Wt 60.2 kg
[~2016-07-12 15:12] MED LIST changes: -ACET325T33 PO; -ASCO500C7 PO; +GABA100C14 PO; +HYDR-3672 PO; +METO25TA7 PO; -VALS40TA2 PO; -ZINC220T PO
[2016-07-12 22:00] VITALS: BP 112/56; RESP 18
[2016-07-12] MEDS ORDERED: BISACODYL 10 MG SUPP PR PRN ×2 (22:00→23:30)
[2016-07-12] MEDS ORDERED: DEXTROSE 50% 50 ML SYRINGE IV PRN ×2 (23:30)
[2016-07-12] MEDS ORDERED: morphine 2 MG INJ IV PRN (23:30)
[2016-07-12] MEDS ORDERED: GLUCOSE GEL 15 GRAM TUBE BUCCAL PRN (23:30)
[2016-07-12] MEDS ORDERED: EPOETIN 10000 UNITS/1 ML INJ (ESRD) SC SCH (23:30)
[2016-07-12] MEDS ORDERED: GLUCAGON 1 MG INJ IM PRN (23:30)
[2016-07-12] MEDS ORDERED: HYDROCODONE/APAP (5/325) TAB PO PRN (23:30)
[2016-07-12] MEDS ORDERED: GLUCOSE GEL 15 GRAM TUBE PO PRN ×2 (23:30)
[2016-07-12] MEDS ORDERED: NA PHOSPHATE/BIPHOS 133 ML ENEMA PR PRN (23:30)
[2016-07-12] MEDS ORDERED: NACL 0.9% 3 ML SYG IV SCH (23:30)
[2016-07-13] MEDS: ATORVASTATIN 80 MG TAB PO SCH ×2 (00:01→21:26)
[2016-07-13 00:10] VITALS: BP 107/52; PULSE 76
[2016-07-13] MEDS: ACCUCHECK AT 2AM (Patients on SS coverage) XX SCH (02:00)
[2016-07-13 02:17] VITALS: Ht 165.1 cm; Wt 60.2 kg
[2016-07-13] MEDS: PANTOPRAZOLE (EC) 40 MG TAB PO SCH (06:22)
[2016-07-13] MEDS: LEVOTHYROXINE 88 MCG TAB PO SCH (06:22)
[2016-07-13 06:55] LABS: ADD SCAN DIFF NO
[2016-07-13 07:06] LABS: BASOPHILS % 0.2 % (0.0-2.0); EOSINOPHILS % 0.7 % (0.0-7.0); HEMATOCRIT 29.6 % (37.0-47.0); HEMOGLOBIN 9.1 g/dl (12.0-16.0); LYMPHOCYTES # 0.9 10^3/ul (0.8-2.9); LYMPHOCYTES % 15.3 % (15.0-51.0); MEAN CORPUSCULAR HEMOGLOBIN 29.6 pg (29.0-33.0); MEAN CORPUSCULAR HGB CONC 30.7 g/dl (32.0-37.0); MEAN CORPUSCULAR VOLUME 96.4 fl (82.0-101.0); MEAN PLATELET VOLUME 9.7 fl (7.4-10.4); MONOCYTE # 0.6 10^3/ul (0.3-0.9); MONOCYTES % 10.3 % (0.0-11.0); NEUTROPHIL # 4.5 10^3/ul (1.6-7.5); NEUTROPHILS % 73.2 % (39.0-77.0); PLATELET COUNT 180 10^3/UL (140-415); RED BLOOD COUNT 3.07 10^6/ul (4.20-5.40); RED CELL DISTRIBUTION WIDTH 14.7 % (11.5-14.5); WHITE BLOOD COUNT 6.1 10^3/ul (4.8-10.8)
[2016-07-13 07:30] VITALS: BP 101/53; RESP 18
[2016-07-13 07:39] LABS: ALBUMIN 2.6 g/dl (3.3-4.9); ALBUMIN/GLOBULIN RATIO 0.89; BILIRUBIN,INDIRECT 0.2 mg/dl (0-1.1); BILIRUBIN,TOTAL 0.2 mg/dl (0.2-1.3); CALCIUM 7.8 mg/dl (8.4-10.2); CREATININE 2.52 mg/dl (0.44-1.00); POTASSIUM 3.8 mmol/L (3.5-5.1); TOTAL PROTEIN 5.5 g/dl (6.1-8.1)
[2016-07-13] MEDS: Insulin NOVOLOG SS MILD Algorithm (SS with meals and bedtime) SC SCH ×4 (07:43→21:00)
[2016-07-13] MEDS: SEVELAMER CARBONATE 0.8 GM PKT PO SCH ×3 (07:51→16:57)
[2016-07-13] MEDS: REPAGLINIDE 1 MG TAB PO SCH ×3 (07:51→16:57)
[2016-07-13] MEDS: POLYETHYLENE GLYCOL 17 GM PACKET PO SCH (08:03)
[2016-07-13] MEDS: GABAPENTIN 100 MG CAP PO SCH (08:03)
[2016-07-13] MEDS: FERROUS SULFATE (EC) 325 MG TAB PO SCH (08:03)
[2016-07-13] MEDS: ESCITALOPRAM 10 MG TAB PO SCH (08:03)
[2016-07-13] MEDS: MULTIVIT/CA CARB/B CMPLX/FA TAB PO SCH (08:03)
[2016-07-13] MEDS: DOCUSATE SODIUM 100 MG CAP PO SCH ×2 (08:03→21:26)
[2016-07-13] MEDS: ENOXAPARIN 30 MG/0.3 ML SYG SC SCH (08:04)
[2016-07-13] MEDS: HYDROCODONE/APAP (5/325) TAB PO PRN (08:12)
[2016-07-13] MEDS: METOPROLOL (XL) 25 MG TAB PO SCH (09:00)
--- NOTE | 2016-07-13 10:49 | HP ---
DATE OF ADMISSION: 07/12/2016 CHIEF COMPLAINT: Status post right hip arthroplasty. HISTORY OF PRESENT ILLNESS: This is a 75-year-old female with a past medical history of end-stage r enal disease on dialysis Sunday and Sunday, access Perm-A-Cath, history of peripheral vascular disea se status post right lower extremity bypass, history of cardiomyopathy, coronary artery disease stat us post CABG, history of arrhythmia, diabetes who presented to [facility] after pike ffering a mechanical fall. The patient was diagnosed with right hip arthroplasty. She was admitted to the med/surg. She was seen by the orthopedist Dr. Maria and had an ORIF of her right hip. The pat ient postoperatively was stable; however, she had a significant decline in her premorbid state and a s a result, she was transferred over to [facility] acute rehab for continued care. Upon my evaluation of the patient at this time she is currently stable. Denies any fevers, chills, nausea, vomiting, no shortness of breath. PAST MEDICAL HISTORY: As stated above, history of end-stage renal disease, hypertension, cardiomyop athy, diabetes, hypothyroidism, anemia. PAST SURGICAL HISTORY: Status post CABG, status post right lower extremity fem-pop status post Perm Cath placement. MEDICATIONS: Have been reviewed and reconciled. FAMILY HISTORY: Reviewed. SOCIAL HISTORY: Noncontributory. ALLERGIES: NO KNOWN DRUG ALLERGIES. REVIEW OF SYSTEMS: A 14-point review of systems was conducted. Pertinent positives in HPI, otherwi se negative. PHYSICAL EXAMINATION: VITAL SIGNS: Blood pressure is 107/57, respiratory rate 20, pulse 85, temperature 98.2. HEENT: Head is normocephalic. NECK: Supple. HEART: Regular rate. LUNGS: Show diminished breath sounds at the base. ABDOMEN: Soft, nontender to palpation without rebound or guarding. EXTREMITIES: Negative for clubbing, cyanosis, no edema. DERMATOLOGIC: No rashes. MUSCULOSKELETAL: Dressing over right hip. NEUROLOGIC: No focal deficits. DERMATOLOGIC: No rashes. The patient's medication has been reviewed. LABORATORY DATA: Shows sodium 129, potassium 3.8, BUN 32, creatinine 2.52. White count 6.1, hemogl obin 9.1, hematocrit 28.6, platelet count is 180. ASSESSMENT AND PLAN: 1. Right hip fracture status post open reduction internal fixation. The patient is currently stabl e. Continue physical therapy, DVT prophylaxis. Continue pain control. 2. End-stage renal disease. Continue dialysis on Sunday, Sunday, Sunday. Plan for dialysis yayo . 3. Hypertension. Continue current blood pressure regimen. 4. Diabetes. Continue current insulin regimen. 5. Cardiomyopathy, coronary artery disease. Continue medical management. 6. Peripheral vascular disease, status post fem-pop. 7. Chronic pain syndrome. Continue current pain regimen. 8. Mineral bone disorder. Continue to monitor calcium and phosphorus levels. Continue phos binders . 9. Hepatitis. Continue Synthroid. 10. Hyponatremia. We will limit free water intake. No more than 800 mL daily. 11. Gastrointestinal and deep vein thrombosis prophylaxis. Continue proton pump inhibitor and Love nox. Dictated By: BRANDI CHANEY/ANA Conf#: [id number] DID#: [id number]
--- NOTE | 2016-07-13 11:45 | CONS ---
DATE OF ADMISSION: 07/12/2016 DATE OF CONSULTATION: 07/13/2016 REHABILITATION POST ADMISSION PHYSICIAN EVALUATION REHABILITATION IMPAIRMENT CATEGORY: Right hip femoral neck fracture status post hemiarthroplasty. ACTIVE COMORBIDITIES: 1. End-stage renal disease, on hemodialysis. 2. Peripheral vascular disease with history of bypass. 3. Diabetes mellitus type 2. 4. Hypertension. 5. History of coronary artery disease and CABG. 6. History of cardiomyopathy. 7. Cervical degenerative disk disease. 8. Hyponatremia. 9. Hypothyroidism. 10. Anemia. 11. Impairments in self-care and mobility. 12. Ischial deep tissue injury in addition to bilateral heel decubitus ulcers. HISTORY OF PRESENT ILLNESS: The patient is a pleasant 75-year-old female with a history of multiple medical comorbidities who is status post a mechanical fall at home with resultant right femoral nec k fracture. The patient underwent a right hip hemiarthroplasty with hospital course notable for her hemodialysis for her end-stage renal disease, anemia, significant pain, in addition to impairments in self-care and mobility as compared to baseline. The patient has been cleared to transfer to the rehabilitation unit for comprehensive interdisciplinary rehab care. FUNCTIONAL HISTORY: Prior to recent events, she was independent in self-care tasks and mobility. C urrently, she requires maximal assist for self-care and mobility tasks. SOCIAL HISTORY: The patient lives at home and hopes to return there upon discharge. PAST MEDICAL HISTORY: 1. End-stage renal disease, on hemodialysis. 2. Peripheral vascular disease with history of bypass. 3. Diabetes mellitus type 2. 4. Hypertension. 5. Coronary artery disease with history of coronary artery bypass graft. 6. Cardiomyopathy. 7. Cervical degenerative disk disease. 8. Hypothyroidism. CURRENT MEDICATIONS: Please see medication reconciliation sheet. ALLERGIES: THE PATIENT WITH NO KNOWN DRUG ALLERGIES. PHYSICAL EXAMINATION: VITAL SIGNS: The patient is currently afebrile with stable vital signs. HEENT: Extraocular motions are intact. Oropharynx clear. NECK: Supple. LUNGS: Clear anteriorly. CARDIAC: S1, S2. ABDOMEN: Soft, nontender, positive bowel sounds. NEUROLOGIC: She is awake and alert and oriented to person and hospital. She will follow simple 1-s tep commands. She demonstrates antigravity strength in bilateral upper extremity and the left lower extremity. Dorsiflexion and plantar flexion intact on the right. PLAN: The patient has been admitted for comprehensive interdisciplinary acute rehab and is anticipa felipa to tolerate 3 hours of daily therapy in divided doses for at least 5/7 days a week. The treatme nt plan will include: 1. Physical therapy to focus on bed mobility, transfers, and household ambulation with the goal of having the patient reach a standby assist level. 2. Occupational therapy to focus on hygiene, grooming, dressing, bathing, and toileting activities with the goal of having the patient reach a standby assist level. 3. Rehabilitation nursing for carryover of therapeutic interventions with the goal of continent of bowel and bladder, and the goal of pain adequately managed on oral medications. ESTIMATED LENGTH OF STAY: 14 days. DISPOSITION GOAL: Home. REHABILITATION BARRIER: Pain. INTERVENTION FOR BARRIER: Comprehensive interdisciplinary approach. I acknowledge that I performed a full physical examination on this patient within 24 hours of admiss ion to the rehabilitation unit. I believe the patient is a good candidate for comprehensive interdi sciplinary rehab care and is anticipated to make reasonable goals in a reasonable period of time as outlined above. Dictated By: FAYE GOINS/ANA Conf#: [id number] DID#: [id number]
[2016-07-13 13:20] VITALS: BP 112/59; PULSE 69; RESP 18
--- NOTE | 2016-07-13 19:26 | CONS ---
Date/Time of Note Date/Time of Note DATE: 07/13/16 TIME: 19:21 Assessment/Plan Assessment/Plan Chief Complaint/Hosp Course IMPRESSION: 1. Preoperative evaluation prior to open reduction internal fixation of the right hip.-negative troponin x 3. NO Post-op s/p Hip ORIF 2. History of cardiomyopathy with decreased left ventricular ejection fraction , last known to be approximately 35% by echo February 2016 with a negative stress February 2016, revealing scar but no ischemia. Echo this admit EF 30-35% 3. History of permanent pacemaker implantation for bradyarrhythmias. 4. History of coronary artery disease, status post coronary bypass graft surgery. 5. Peripheral arterial disease status post relatively recent lower extremity bypass surgery. 6. End-stage renal disease on hemodialysis. 7. Diabetes mellitus. 8. Thyroid dysfunction. 9. Cardiomyopathy with decreased left ventricular ejection fraction. 10. Status post fall. 11. Hip fracture. 12. Arm swelling-Negative venous BLAYNE for DVT 07/07 14. Hyponatremia 15.HTN-well controlled Recc: -Tele -serial ecg's -Continue toprol -Decrease dose of hydralazine to allow patient to tolerate -PT -HD for volume removal Problems: Consultation Date/Type/Reason Admit Date/Time July 12, 2016 at 21:05 Initial Consult Date 07/12/2016 Type of Consultation: Cardiology Reason for Consultation cardiomyopathy/CHF Referring Provider: BRANDI ERICKSON DO Exam/Review of Systems Vital Signs Vitals Vital Signs Date Time Temp Pulse Resp B/P Pulse Ox O2 Delivery O2 Flow Rate FiO2 07/13/16 13:20 98.9 69 18 112/59 07/13/16 07:30 96 Intake and Output 07/12/16 07/12/16 07/13/16 15:00 23:00 07:00 Intake Total 350 ml Balance 350 ml Exam Review of Systems: CONSTITUTIONAL: No fevers, chills. PULMONARY: No sob CARDIOVASCULAR: No chest pain/palpitations GASTROINTESTINAL: No nausea/vomiting. GENITOURINARY: No hematuria/dysuria. MUSCULOSKELETAL: mild pain in hip PSYCHIATRIC: The patient denies depression. NEUROLOGIC: No weakness Constitutional: alert, oriented Psych: no complaints Head: normocephalic ENMT: mucosa pink and moist Neck: jvd (9 cm water), supple Respiratory: diminished breath sounds (at bases/B) Cardiovascular: regular rate and rhythm Gastrointestinal: non-tender, soft Musculoskeletal: muscle tone (normal) Extremities: edema (none) Neurological: other (No focal deficits) Results Result Diagram: 07/13/1662107/13/16626 Results 24 hrs Laboratory Tests Test 07/13/16 06:22 07/13/16 06:27 07/13/16 07:23 07/13/16 11:53 White Blood Count 6.1 Red Blood Count 3.07 L Hemoglobin 9.1 L Hematocrit 29.6 L Mean Corpuscular Volume 96.4 Mean Corpuscular Hemoglobin 29.6 Mean Corpuscular Hemoglobin Concent 30.7 L Red Cell Distribution Width 14.7 H Platelet Count 180 Mean Platelet Volume 9.7 Neutrophils % 73.2 Lymphocytes % 15.3 Monocytes % 10.3 Eosinophils % 0.7 Basophils % 0.2 Nucleated Red Blood Cells % 0.0 Neutrophils # 4.5 Lymphocytes # 0.9 Monocytes # 0.6 Eosinophils # 0.0 Basophils # 0.0 Nucleated Red Blood Cells # 0.0 Sodium Level 129 L Potassium Level 3.8 Chloride Level 99 Carbon Dioxide Level 25 Anion Gap 9 Blood Urea Nitrogen 32 H Creatinine 2.52 H Glucose Level 174 Calcium Level 7.8 L Total Bilirubin 0.2 Direct Bilirubin 0.00 Indirect Bilirubin 0.2 Aspartate Amino Transf (AST/SGOT) 30 Alanine Aminotransferase (ALT/SGPT) 29 Alkaline Phosphatase 89 Total Protein 5.5 L Albumin 2.6 L Globulin 2.90 Albumin/Globulin Ratio 0.89 Bedside Glucose 173 247 H Test 07/13/16 16:48 Bedside Glucose 300 H Medications Medications Current Medications Docusate Sodium (Colace) 100 mg BID PO Last administered on 07/13/16 08:03; Admin Dose 100 MG; Start 07/13/16 at 09:00 Senna (Senokot) 1 tab HS PO ; Start 07/13/16 at 21:00 Bisacodyl (Dulcolax Supp) [address] CONSTIPATION; Start 07/12/16 at 22: 00 Atorvastatin Calcium (Lipitor) 80 mg DAILY@21 PO Last administered on 07/13/16 00:01; Admin Dose 80 MG; Start 07/12/16 at 23:15 Hydralazine HCl (Apresoline) 50 mg TID PO Last administered on 07/13/16 00:10; Admin Dose 50 MG; Start 07/12/16 at 23:15 Miscellaneous Information 1 ea NOTE XX ; Start 07/12/16 at 23:30 Glucose (Glutose) 15 gm Q15M PRN PO DECREASED GLUCOSE; Start 07/12/16 at 23:30 Glucose (Glutose) 22.5 gm Q15M PRN PO DECREASED GLUCOSE; Start 07/12/16 at 23:30 Dextrose (D50w Syringe) 25 ml Q15M PRN IV DECREASED GLUCOSE; Start 07/12/16 at 23:30 Dextrose (D50w Syringe) 50 ml Q15M PRN IV DECREASED GLUCOSE; Start 07/12/16 at 23:30 Glucagon (Glucagen) 1 mg Q15M PRN IM DECREASED GLUCOSE; Start 07/12/16 at 23:30 Glucose (Glutose) 15 gm Q15M PRN BUCCAL DECREASED GLUCOSE; Start 07/12/16 at 23: 30 Diagnostic Test (Pha) (Accu-Chek) 1 ea 02 XX ; Start 07/13/16 at 02:00 Enoxaparin Sodium (Lovenox) 30 mg DAILY SC Last administered on 07/13/16 08:04 ; Admin Dose 30 MG; Start 07/13/16 at 09:00 Bisacodyl (Dulcolax Supp) [address] CONSTIPATION; Start 07/12/16 at 23: 30 Escitalopram Oxalate (Lexapro) 10 mg DAILY PO Last administered on 07/13/16 08: 03; Admin Dose 10 MG; Start 07/13/16 at 09:00 Ferrous Sulfate (Ferrous Sulfate (Ec)) 325 mg DAILY PO Last administered on 07/13 08:03; Admin Dose 325 MG; Start 07/13/16 at 09:00 Gabapentin (Neurontin) 100 mg DAILY PO Last administered on 07/13/16 08:03; Admin Dose 100 MG; Start 07/13/16 at 09:00 Acetaminophen/ Hydrocodone Bitart ([place] (5/325)) 1 tab Q4H PRN PO PAIN Last administered on 07/13/16 08:12; Admin Dose 1 TAB; Start 07/12/16 at 23:30 Acetaminophen/ Hydrocodone Bitart ([place] (5/325)) 2 tab Q4H PRN PO PAIN; Start 07/12/16 at 23:30 Metoprolol Succinate (Toprol Xl) 25 mg DAILY PO ; Start 07/13/16 at 09:00 Morphine Sulfate (morphine) 2 mg Q4H PRN IV PAIN; Start 07/12/16 at 23:30 Multivit/Ca Carb/ B Cmplx/FA/Prenat ([place]ie-Roge) 1 tab DAILY PO Last administered on 07/13/16 08:03; Admin Dose 1 TAB; Start 07/13/16 at 09:00 Ondansetron HCl (Zofran Inj) 4 mg Q6H PRN IV NAUSEA AND/OR VOMITING; Start 07/12 at 23:30 Polyethylene Glycol (Miralax) 17 gm DAILY PO Last administered on 07/13/16 08: 03; Admin Dose 17 GM; Start 07/13/16 at 09:00 Sodium Biphosphate/ Sodium Phosphate (Fleet Enema) [address] CONSTIPATION; Start 07/12/16 at 23:30 YI RODRIGUEZ July 13, 2016 19:26
[2016-07-13] MEDS: SENNA TAB PO SCH (21:00)
--- NOTE | 2016-07-13 22:05 | CONS ---
Date/Time of Note Date/Time of Note DATE: 07/13/16 TIME: 22:05 Consultation Date/Type/Reason Admit Date/Time July 12, 2016 at 21:05 Psychological: no complaints Social History Smoking Status: Never smoker Exam/Review of Systems Vital Signs Vitals Vital Signs Date Time Temp Pulse Resp B/P Pulse Ox O2 Delivery O2 Flow Rate FiO2 07/13/16 13:20 98.9 69 18 112/59 07/13/16 07:30 96 Intake and Output 07/12/16 07/12/16 07/13/16 15:00 23:00 07:00 Intake Total 350 ml Balance 350 ml Exam HEENT: Head is normocephalic. NECK: Supple. HEART: Regular rate. LUNGS: Show diminished breath sounds at the bases. ABDOMEN: Soft, nontender to palpation. No rebound or guarding. EXTREMITIES: Negative for clubbing, cyanosis. No edema. DERMATOLOGIC: No rashes. MUSCULOSKELETAL: No joint effusions. NEUROLOGIC: No change in exam. Results Result Diagram: 07/13/16 0622 07/13/16 0627 Results 24 hrs Laboratory Tests Test 07/13/16 06:22 07/13/16 06:27 07/13/16 07:23 07/13/16 11:53 White Blood Count 6.1 Red Blood Count 3.07 L Hemoglobin 9.1 L Hematocrit 29.6 L Mean Corpuscular Volume 96.4 Mean Corpuscular Hemoglobin 29.6 Mean Corpuscular Hemoglobin Concent 30.7 L Red Cell Distribution Width 14.7 H Platelet Count 180 Mean Platelet Volume 9.7 Neutrophils % 73.2 Lymphocytes % 15.3 Monocytes % 10.3 Eosinophils % 0.7 Basophils % 0.2 Nucleated Red Blood Cells % 0.0 Neutrophils # 4.5 Lymphocytes # 0.9 Monocytes # 0.6 Eosinophils # 0.0 Basophils # 0.0 Nucleated Red Blood Cells # 0.0 Sodium Level 129 L Potassium Level 3.8 Chloride Level 99 Carbon Dioxide Level 25 Anion Gap 9 Blood Urea Nitrogen 32 H Creatinine 2.52 H Glucose Level 174 Calcium Level 7.8 L Total Bilirubin 0.2 Direct Bilirubin 0.00 Indirect Bilirubin 0.2 Aspartate Amino Transf (AST/SGOT) 30 Alanine Aminotransferase (ALT/SGPT) 29 Alkaline Phosphatase 89 Total Protein 5.5 L Albumin 2.6 L Globulin 2.90 Albumin/Globulin Ratio 0.89 Bedside Glucose 173 247 H Test 07/13/16 16:48 07/13/16 20:54 Bedside Glucose 300 H 205 Medications Medications Current Medications Docusate Sodium (Colace) 100 mg BID PO Last administered on 07/13/16 21:26; Admin Dose 100 MG; Start 07/13/16 at 09:00 Senna (Senokot) 1 tab HS PO ; Start 07/13/16 at 21:00 Atorvastatin Calcium (Lipitor) 80 mg DAILY@21 PO Last administered on 07/13/16 21:26; Admin Dose 80 MG; Start 07/12/16 at 23:15 Miscellaneous Information 1 ea NOTE XX ; Start 07/12/16 at 23:30 Glucose (Glutose) 15 gm Q15M PRN PO DECREASED GLUCOSE; Start 07/12/16 at 23:30 Glucose (Glutose) 22.5 gm Q15M PRN PO DECREASED GLUCOSE; Start 07/12/16 at 23:30 Dextrose (D50w Syringe) 25 ml Q15M PRN IV DECREASED GLUCOSE; Start 07/12/16 at 23:30 Dextrose (D50w Syringe) 50 ml Q15M PRN IV DECREASED GLUCOSE; Start 07/12/16 at 23:30 Glucagon (Glucagen) 1 mg Q15M PRN IM DECREASED GLUCOSE; Start 07/12/16 at 23:30 Glucose (Glutose) 15 gm Q15M PRN BUCCAL DECREASED GLUCOSE; Start 07/12/16 at 23: 30 Diagnostic Test (Pha) (Accu-Chek) 1 ea 02 XX ; Start 07/13/16 at 02:00 Enoxaparin Sodium (Lovenox) 30 mg DAILY SC Last administered on 07/13/16 08:04 ; Admin Dose 30 MG; Start 07/13/16 at 09:00 Bisacodyl (Dulcolax Supp) 10 mg DAILY PRN [place] CONSTIPATION; Start 07/12/16 at 23: 30 Escitalopram Oxalate (Lexapro) 10 mg DAILY PO Last administered on 07/13/16 08: 03; Admin Dose 10 MG; Start 07/13/16 at 09:00 Ferrous Sulfate (Ferrous Sulfate (Ec)) 325 mg DAILY PO Last administered on 07/13 08:03; Admin Dose 325 MG; Start 07/13/16 at 09:00 Gabapentin (Neurontin) 100 mg DAILY PO Last administered on 07/13/16 08:03; Admin Dose 100 MG; Start 07/13/16 at 09:00 Acetaminophen/ Hydrocodone Bitart ([place] (5/325)) 1 tab Q4H PRN PO PAIN Last administered on 07/13/16 08:12; Admin Dose 1 TAB; Start 07/12/16 at 23:30 Acetaminophen/ Hydrocodone Bitart ([place] (5/325)) 2 tab Q4H PRN PO PAIN; Start 07/12/16 at 23:30 Metoprolol Succinate (Toprol Xl) 25 mg DAILY PO ; Start 07/13/16 at 09:00 Morphine Sulfate (morphine) 2 mg Q4H PRN IV PAIN; Start 07/12/16 at 23:30 Multivit/Ca Carb/ B Cmplx/FA/Prenat (Billie-Roge) 1 tab DAILY PO Last administered on 07/13/16 08:03; Admin Dose 1 TAB; Start 07/13/16 at 09:00 Ondansetron HCl (Zofran Inj) 4 mg Q6H PRN IV NAUSEA AND/OR VOMITING; Start 07/12 at 23:30 Polyethylene Glycol (Miralax) 17 gm DAILY PO Last administered on 07/13/16 08: 03; Admin Dose 17 GM; Start 07/13/16 at 09:00 Sodium Biphosphate/ Sodium Phosphate (Fleet Enema) 133 ml DAILY PRN MD CONSTIPATION; Start 07/12/16 at 23:30 Hydralazine HCl (Apresoline) 25 mg TID PO ; Start 07/13/16 at 21:00 FABY HORN MD July 13, 2016 22:05
[2016-07-14] MEDS: ACCUCHECK AT 2AM (Patients on SS coverage) XX SCH (02:30)
[2016-07-14] MEDS: PANTOPRAZOLE (EC) 40 MG TAB PO SCH (06:42)
[2016-07-14] MEDS: LEVOTHYROXINE 88 MCG TAB PO SCH (06:42)
[2016-07-14 07:43] VITALS: BP 133/61; RESP 18
[2016-07-14] MEDS: Insulin NOVOLOG SS MILD Algorithm (SS with meals and bedtime) SC SCH ×4 (08:00→21:00)
[2016-07-14] MEDS: ENOXAPARIN 30 MG/0.3 ML SYG SC SCH (08:00)
[2016-07-14] MEDS: GABAPENTIN 100 MG CAP PO SCH (08:01)
[2016-07-14] MEDS: SEVELAMER CARBONATE 0.8 GM PKT PO SCH ×3 (08:01→17:10)
[2016-07-14] MEDS: ESCITALOPRAM 10 MG TAB PO SCH (08:01)
[2016-07-14] MEDS: MULTIVIT/CA CARB/B CMPLX/FA TAB PO SCH (08:01)
[2016-07-14] MEDS: POLYETHYLENE GLYCOL 17 GM PACKET PO SCH (08:01)
[2016-07-14] MEDS: FERROUS SULFATE (EC) 325 MG TAB PO SCH (08:02)
[2016-07-14] MEDS: METOPROLOL (XL) 25 MG TAB PO SCH (08:02)
[2016-07-14] MEDS: REPAGLINIDE 1 MG TAB PO SCH ×3 (08:02→17:10)
[2016-07-14 09:00] LABS: CALCIUM 7.9 mg/dl (8.4-10.2); CREATININE 3.03 mg/dl (0.44-1.00); MAGNESIUM 2.3 mg/dl (1.7-2.5); PHOSPHORUS 3.5 mg/dl (2.5-4.9); POTASSIUM 4.4 mmol/L (3.5-5.1)
[2016-07-14] MEDS: DOCUSATE SODIUM 100 MG CAP PO SCH ×2 (09:00→21:01)
--- NOTE | 2016-07-14 09:34 | PN ---
DATE: 07/14/2016 SUBJECTIVE: The patient is stable. No events overnight. No fevers, chills, nausea, vomiting. OBJECTIVE: VITAL SIGNS: Blood pressure is 133/61, respirations 18, pulse 84, temperature 98.2. HEENT: Head is normocephalic. NECK: Supple. HEART: Regular rate. LUNGS: Show diminished breath sounds at the base. ABDOMEN: Soft, nontender to palpation. No rebound or guarding. EXTREMITIES: Negative for clubbing, cyanosis, no edema. DERMATOLOGIC: No rashes. MUSCULOSKELETAL: The patient has dressing over right hip clean, dry, and intact. NEUROLOGIC: No focal deficits. DERMATOLOGIC: No rashes. MEDICATIONS: Have been reviewed. LABORATORY DATA: Has been reviewed. No new labs. ASSESSMENT AND PLAN: 1. Right hip fracture status post open reduction internal fixation. The patient is currently stabl e. Continue PT, OT, daily deep vein thrombosis prophylaxis. 2. End-stage renal disease. Plan for dialysis today for 3 hours, 2K bath, calcium 2.5. 3. Hypertension. Continue current blood pressure regimen. 4. Diabetes. Continue current insulin regimen. 5. Cardiomyopathy/coronary artery disease. Continue current medical management. 6. Peripheral vascular disease status post fem-pop. 7. Chronic pain syndrome. Continue current pain regimen. 8. Mineral bone disorder. Continue to monitor calcium and phosphorous levels. Continue phosphate b inders. 9. Hypothyroidism. Continue Synthroid. 10. Hyponatremia. Continue to limit free water intake. We will dialyze the patient on 140 sodium bath. 11. Gastrointestinal and deep venous thrombosis prophylaxis. Continue PPI and Lovenox. Dictated By: BRANDI CHANEY/ANA Conf#: [id number] DID#: [id number]
[2016-07-14] MEDS: HYDROCODONE/APAP (5/325) TAB PO PRN (10:08)
--- NOTE | 2016-07-14 10:13 | CONS ---
Date/Time of Note Date/Time of Note DATE: 07/14/16 TIME: 10:13 Assessment/Plan Assessment/Plan Chief Complaint/Hosp Course ANEMIA- COMPLEX, MULTIFACTORIAL MONITOR CLOSELY OBSERVE FOR BLEEDING AND HEMOLYSIS TRANSFUSE TO KEEP HB ABOVE 8 Right hip fracture status post open reduction internal fixation. The patient is currently stable. Continue PT, OT. End-stage renal disease. The patient was scheduled for hemodialysis today for 3 hours 2K bath, calcium 2.5. 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 The patient has been seen by Dr. [place]. Started on acyclovir. Cultures have been sent. Will monitor. Hypertension. Continue current blood pressure regimen. Diabetes. Continue current insulin regimen. Cardiomyopathy, stable. Continue current medical management. Chronic pain syndrome. Continue current pain regimen. Hypothyroidism. Continue Synthroid. History of peripheral vascular disease. GI and deep vein thrombosis prophylaxis. Continue PPI and Lovenox. Problems: Consultation Date/Type/Reason Admit Date/Time July 12, 2016 at 21:05 Initial Consult Date [facility] Referring Provider: BRANDI ERICKSON DO 24 HR Interval Summary Free Text/Dictation all noted no new events Exam/Review of Systems Vital Signs Vitals Vital Signs Date Time Temp Pulse Resp B/P Pulse Ox O2 Delivery O2 Flow Rate FiO2 07/14/16 07:43 98.2 84 18 133/61 96 Intake and Output 07/13/16 07/13/16 07/14/16 15:00 23:00 07:00 Intake Total 420 ml 240 ml Balance 420 ml 240 ml Exam HEENT: Head is normocephalic. NECK: Supple. HEART: Regular rate. LUNGS: Show diminished breath sounds at the bases. ABDOMEN: Soft, nontender to palpation. No rebound or guarding. EXTREMITIES: Negative for clubbing, cyanosis. No edema. DERMATOLOGIC: No rashes. MUSCULOSKELETAL: No joint effusions. NEUROLOGIC: No change in exam. Results Result Diagram: 07/13/16 0622 07/14/16 0715 Results 24 hrs Laboratory Tests Test 07/13/16 11:53 07/13/16 16:48 07/13/16 20:54 07/14/16 07:15 Bedside Glucose 247 H 300 H 205 Sodium Level 128 L Potassium Level 4.4 Chloride Level 95 L Carbon Dioxide Level 25 Anion Gap 12 Blood Urea Nitrogen 41 H Creatinine 3.03 H Glucose Level 131 # Calcium Level 7.9 L Phosphorus Level 3.5 Magnesium Level 2.3 Test 07/14/16 07:27 Bedside Glucose 142 Medications Medications Current Medications Docusate Sodium (Colace) 100 mg BID PO Last administered on 07/13/16 21:26; Admin Dose 100 MG; Start 07/13/16 at 09:00 Senna (Senokot) 1 tab HS PO ; Start 07/13/16 at 21:00 Atorvastatin Calcium (Lipitor) 80 mg DAILY@21 PO Last administered on 07/13/16 21:26; Admin Dose 80 MG; Start 07/12/16 at 23:15 Miscellaneous Information 1 ea NOTE XX ; Start 07/12/16 at 23:30 Glucose (Glutose) 15 gm Q15M PRN PO DECREASED GLUCOSE; Start 07/12/16 at 23:30 Glucose (Glutose) 22.5 gm Q15M PRN PO DECREASED GLUCOSE; Start 07/12/16 at 23:30 Dextrose (D50w Syringe) 25 ml Q15M PRN IV DECREASED GLUCOSE; Start 07/12/16 at 23:30 Dextrose (D50w Syringe) 50 ml Q15M PRN IV DECREASED GLUCOSE; Start 07/12/16 at 23:30 Glucagon (Glucagen) 1 mg Q15M PRN IM DECREASED GLUCOSE; Start 07/12/16 at 23:30 Glucose (Glutose) 15 gm Q15M PRN BUCCAL DECREASED GLUCOSE; Start 07/12/16 at 23: 30 Diagnostic Test (Pha) (Accu-Chek) 1 ea 02 XX ; Start 07/13/16 at 02:00 Enoxaparin Sodium (Lovenox) 30 mg DAILY SC Last administered on 07/14/16 08:00 ; Admin Dose 30 MG; Start 07/13/16 at 09:00 Bisacodyl (Dulcolax Supp) 10 mg DAILY PRN [place] CONSTIPATION; Start 07/12/16 at 23: 30 Escitalopram Oxalate (Lexapro) 10 mg DAILY PO Last administered on 07/14/16 08: 01; Admin Dose 10 MG; Start 07/13/16 at 09:00 Ferrous Sulfate (Ferrous Sulfate (Ec)) 325 mg DAILY PO Last administered on 07/14 08:02; Admin Dose 325 MG; Start 07/13/16 at 09:00 Gabapentin (Neurontin) 100 mg DAILY PO Last administered on 07/14/16 08:01; Admin Dose 100 MG; Start 07/13/16 at 09:00 Acetaminophen/ Hydrocodone Bitart ([place] (5/325)) 1 tab Q4H PRN PO PAIN Last administered on 07/14/16 10:08; Admin Dose 1 TAB; Start 07/12/16 at 23:30 Acetaminophen/ Hydrocodone Bitart ([place] (5/325)) 2 tab Q4H PRN PO PAIN; Start 07/12/16 at 23:30 Metoprolol Succinate (Toprol Xl) 25 mg DAILY PO Last administered on 07/14/16 08:02; Admin Dose 25 MG; Start 07/13/16 at 09:00 Morphine Sulfate (morphine) 2 mg Q4H PRN IV PAIN; Start 07/12/16 at 23:30 Multivit/Ca Carb/ B Cmplx/FA/Prenat (Billie-Roge) 1 tab DAILY PO Last administered on 07/14/16 08:01; Admin Dose 1 TAB; Start 07/13/16 at 09:00 Ondansetron HCl (Zofran Inj) 4 mg Q6H PRN IV NAUSEA AND/OR VOMITING; Start 07/12 at 23:30 Polyethylene Glycol (Miralax) 17 gm DAILY PO Last administered on 07/14/16 08: 01; Admin Dose 17 GM; Start 07/13/16 at 09:00 Sodium Biphosphate/ Sodium Phosphate (Fleet Enema) 133 ml DAILY PRN [place] CONSTIPATION; Start 07/12/16 at 23:30 Hydralazine HCl (Apresoline) 25 mg TID PO Last administered on 07/14/16 08:03; Admin Dose 25 MG; Start 07/13/16 at 21:00 FABY HORN MD July 14, 2016 10:13
--- NOTE | 2016-07-14 11:21 | CONS ---
Date/Time of Note Date/Time of Note DATE: 07/14/16 TIME: 11:19 Consult Date/Type/Reason Admit Date/Time July 12, 2016 at 21:05 Initial Consult Date Type of Consultation: [facility] Ordering Provider: BRANDI ERICKSON DO Subjective Up for activities Objective pulm-cta abd-soft max assist Vital Signs Date Time Temp Pulse Resp B/P Pulse Ox O2 Delivery O2 Flow Rate FiO2 07/14/16 07:43 98.2 84 18 133/61 96 Intake and Output 07/13/16 07/13/16 07/14/16 15:00 23:00 07:00 Intake Total 420 ml 240 ml Balance 420 ml 240 ml Results/Medications Result Diagram: 07/13/16 0622 07/14/16 0715 Results 24 hrs Laboratory Tests Test 07/13/16 11:53 07/13/16 16:48 07/13/16 20:54 07/14/16 07:15 Bedside Glucose 247 H 300 H 205 Sodium Level 128 L Potassium Level 4.4 Chloride Level 95 L Carbon Dioxide Level 25 Anion Gap 12 Blood Urea Nitrogen 41 H Creatinine 3.03 H Glucose Level 131 # Calcium Level 7.9 L Phosphorus Level 3.5 Magnesium Level 2.3 Test 07/14/16 07:27 Bedside Glucose 142 Medications Current Medications Docusate Sodium (Colace) 100 mg BID PO Last administered on 07/13/16 21:26; Admin Dose 100 MG; Start 07/13/16 at 09:00 Senna (Senokot) 1 tab HS PO ; Start 07/13/16 at 21:00 Atorvastatin Calcium (Lipitor) 80 mg DAILY@21 PO Last administered on 07/13/16 21:26; Admin Dose 80 MG; Start 07/12/16 at 23:15 Miscellaneous Information 1 ea NOTE XX ; Start 07/12/16 at 23:30 Glucose (Glutose) 15 gm Q15M PRN PO DECREASED GLUCOSE; Start 07/12/16 at 23:30 Glucose (Glutose) 22.5 gm Q15M PRN PO DECREASED GLUCOSE; Start 07/12/16 at 23:30 Dextrose (D50w Syringe) 25 ml Q15M PRN IV DECREASED GLUCOSE; Start 07/12/16 at 23:30 Dextrose (D50w Syringe) 50 ml Q15M PRN IV DECREASED GLUCOSE; Start 07/12/16 at 23:30 Glucagon (Glucagen) 1 mg Q15M PRN IM DECREASED GLUCOSE; Start 07/12/16 at 23:30 Glucose (Glutose) 15 gm Q15M PRN BUCCAL DECREASED GLUCOSE; Start 07/12/16 at 23: 30 Diagnostic Test (Pha) (Accu-Chek) 1 ea 02 XX ; Start 07/13/16 at 02:00 Enoxaparin Sodium (Lovenox) 30 mg DAILY SC Last administered on 07/14/16 08:00 ; Admin Dose 30 MG; Start 07/13/16 at 09:00 Bisacodyl (Dulcolax Supp) 10 mg DAILY PRN [place] CONSTIPATION; Start 07/12/16 at 23: 30 Escitalopram Oxalate (Lexapro) 10 mg DAILY PO Last administered on 07/14/16 08: 01; Admin Dose 10 MG; Start 07/13/16 at 09:00 Ferrous Sulfate (Ferrous Sulfate (Ec)) 325 mg DAILY PO Last administered on 07/14 08:02; Admin Dose 325 MG; Start 07/13/16 at 09:00 Gabapentin (Neurontin) 100 mg DAILY PO Last administered on 07/14/16 08:01; Admin Dose 100 MG; Start 07/13/16 at 09:00 Acetaminophen/ Hydrocodone Bitart ([place] (5/325)) 1 tab Q4H PRN PO PAIN Last administered on 07/14/16 10:08; Admin Dose 1 TAB; Start 07/12/16 at 23:30 Acetaminophen/ Hydrocodone Bitart ([place] (5/325)) 2 tab Q4H PRN PO PAIN; Start 07/12/16 at 23:30 Metoprolol Succinate (Toprol Xl) 25 mg DAILY PO Last administered on 07/14/16 08:02; Admin Dose 25 MG; Start 07/13/16 at 09:00 Morphine Sulfate (morphine) 2 mg Q4H PRN IV PAIN; Start 07/12/16 at 23:30 Multivit/Ca Carb/ B Cmplx/FA/Prenat (Billie-Roge) 1 tab DAILY PO Last administered on 07/14/16 08:01; Admin Dose 1 TAB; Start 07/13/16 at 09:00 Ondansetron HCl (Zofran Inj) 4 mg Q6H PRN IV NAUSEA AND/OR VOMITING; Start 07/12 at 23:30 Polyethylene Glycol (Miralax) 17 gm DAILY PO Last administered on 07/14/16 08: 01; Admin Dose 17 GM; Start 07/13/16 at 09:00 Sodium Biphosphate/ Sodium Phosphate (Fleet Enema) 133 ml DAILY PRN [place] CONSTIPATION; Start 07/12/16 at 23:30 Hydralazine HCl (Apresoline) 25 mg TID PO Last administered on 07/14/16 08:03; Admin Dose 25 MG; Start 07/13/16 at 21:00 Assessment/Plan Additional Assessment/Plan Rehab- Right hip femoral neck fracture status post hemiarthroplasty. Continue rehab program End-stage renal disease, on hemodialysis-f/b renal. Peripheral vascular disease with history of bypass. Diabetes mellitus type 2. Hypertension. History of coronary artery disease and CABG. History of cardiomyopathy. Cervical degenerative disk disease. Hyponatremia. Hypothyroidism. Ischial deep tissue injury in addition to bilateral heel decubitus ulcers- pressure relief FAYE SAHNI MD July 14, 2016 11:21
--- NOTE | 2016-07-14 15:37 | CONS ---
Date/Time of Note Date/Time of Note DATE: 07/14/16 TIME: 15:35 Assessment/Plan Assessment/Plan Chief Complaint/Hosp Course IMPRESSION: 1. Preoperative evaluation prior to open reduction internal fixation of the right hip.-negative troponin x 3. Now Post-op s/p Hip ORIF 2. History of cardiomyopathy with decreased left ventricular ejection fraction , last known to be approximately 35% by echo February 2016 with a negative stress February 2016, revealing scar but no ischemia. Echo this admit EF 30-35% 3. History of permanent pacemaker implantation for bradyarrhythmias. 4. History of coronary artery disease, status post coronary bypass graft surgery. 5. Peripheral arterial disease status post relatively recent lower extremity bypass surgery. 6. End-stage renal disease on hemodialysis. 7. Diabetes mellitus. 8. Thyroid dysfunction. 9. Cardiomyopathy with decreased left ventricular ejection fraction. 10. Status post fall. 11. Hip fracture. 12. Arm swelling-Negative venous BLAYNE for DVT 07/07 14. Hyponatremia 15.HTN-well controlled Recc: -Tele -serial ecg's -Continue toprol/hydralazine as tolerated and follow BP closely with possible need to decrease doses to allow patient ton better tolerate -Decrease dose of hydralazine to allow patient to tolerate -PT -HD for volume removal Problems: Consultation Date/Type/Reason Admit Date/Time July 12, 2016 at 21:05 Initial Consult Date 07/12/2016 Type of Consultation: Cardiology Reason for Consultation HTN/cardiomyopathy Referring Provider: BRANDI ERICKSON DO Exam/Review of Systems Vital Signs Vitals Vital Signs Date Time Temp Pulse Resp B/P Pulse Ox O2 Delivery O2 Flow Rate FiO2 07/14/16 07:43 98.2 84 18 133/61 96 Intake and Output 07/13/16 07/13/16 07/14/16 15:00 23:00 07:00 Intake Total 420 ml 240 ml Balance 420 ml 240 ml Exam Review of Systems: CONSTITUTIONAL: No fevers, chills. PULMONARY: No sob CARDIOVASCULAR: No chest pain/palpitations GASTROINTESTINAL: No nausea/vomiting. GENITOURINARY: No hematuria/dysuria. MUSCULOSKELETAL: No myagias/arthalgias. PSYCHIATRIC: The patient denies depression. NEUROLOGIC: No weakness Constitutional: alert Psych: no complaints Head: normocephalic ENMT: mucosa pink and moist Neck: jvd (8-9 cm water), supple Respiratory: clear to auscultation Cardiovascular: regular rate and rhythm Gastrointestinal: non-tender, soft Extremities: other (none) Neurological: other (No focal deficits) Results Result Diagram: 07/13/16 0622 07/14/16 0715 Results 24 hrs Laboratory Tests Test 07/13/16 16:48 07/13/16 20:54 07/14/16 07:15 07/14/16 07:27 Bedside Glucose 300 H 205 142 Sodium Level 128 L Potassium Level 4.4 Chloride Level 95 L Carbon Dioxide Level 25 Anion Gap 12 Blood Urea Nitrogen 41 H Creatinine 3.03 H Glucose Level 131 # Calcium Level 7.9 L Phosphorus Level 3.5 Magnesium Level 2.3 Test 07/14/16 12:22 Bedside Glucose 230 H Medications Medications Current Medications Docusate Sodium (Colace) 100 mg BID PO Last administered on 07/13/16 21:26; Admin Dose 100 MG; Start 07/13/16 at 09:00 Senna (Senokot) 1 tab HS PO ; Start 07/13/16 at 21:00 Atorvastatin Calcium (Lipitor) 80 mg DAILY@21 PO Last administered on 07/13/16 21:26; Admin Dose 80 MG; Start 07/12/16 at 23:15 Miscellaneous Information 1 ea NOTE XX ; Start 07/12/16 at 23:30 Glucose (Glutose) 15 gm Q15M PRN PO DECREASED GLUCOSE; Start 07/12/16 at 23:30 Glucose (Glutose) 22.5 gm Q15M PRN PO DECREASED GLUCOSE; Start 07/12/16 at 23:30 Dextrose (D50w Syringe) 25 ml Q15M PRN IV DECREASED GLUCOSE; Start 07/12/16 at 23:30 Dextrose (D50w Syringe) 50 ml Q15M PRN IV DECREASED GLUCOSE; Start 07/12/16 at 23:30 Glucagon (Glucagen) 1 mg Q15M PRN IM DECREASED GLUCOSE; Start 07/12/16 at 23:30 Glucose (Glutose) 15 gm Q15M PRN BUCCAL DECREASED GLUCOSE; Start 07/12/16 at 23: 30 Diagnostic Test (Pha) (Accu-Chek) 1 ea 02 XX ; Start 07/13/16 at 02:00 Enoxaparin Sodium (Lovenox) 30 mg DAILY SC Last administered on 07/14/16 08:00 ; Admin Dose 30 MG; Start 07/13/16 at 09:00 Bisacodyl (Dulcolax Supp) 10 mg DAILY PRN [place] CONSTIPATION; Start 07/12/16 at 23: 30 Escitalopram Oxalate (Lexapro) 10 mg DAILY PO Last administered on 07/14/16 08: 01; Admin Dose 10 MG; Start 07/13/16 at 09:00 Ferrous Sulfate (Ferrous Sulfate (Ec)) 325 mg DAILY PO Last administered on 07/14 08:02; Admin Dose 325 MG; Start 07/13/16 at 09:00 Gabapentin (Neurontin) 100 mg DAILY PO Last administered on 07/14/16 08:01; Admin Dose 100 MG; Start 07/13/16 at 09:00 Acetaminophen/ Hydrocodone Bitart ([place] (5/325)) 1 tab Q4H PRN PO PAIN Last administered on 07/14/16 10:08; Admin Dose 1 TAB; Start 07/12/16 at 23:30 Acetaminophen/ Hydrocodone Bitart ([place] (5/325)) 2 tab Q4H PRN PO PAIN; Start 07/12/16 at 23:30 Metoprolol Succinate (Toprol Xl) 25 mg DAILY PO Last administered on 07/14/16 08:02; Admin Dose 25 MG; Start 07/13/16 at 09:00 Morphine Sulfate (morphine) 2 mg Q4H PRN IV PAIN; Start 07/12/16 at 23:30 Multivit/Ca Carb/ B Cmplx/FA/Prenat (Billie-Roge) 1 tab DAILY PO Last administered on 07/14/16 08:01; Admin Dose 1 TAB; Start 07/13/16 at 09:00 Ondansetron HCl (Zofran Inj) 4 mg Q6H PRN IV NAUSEA AND/OR VOMITING; Start 07/12 at 23:30 Polyethylene Glycol (Miralax) 17 gm DAILY PO Last administered on 07/14/16 08: 01; Admin Dose 17 GM; Start 07/13/16 at 09:00 Sodium Biphosphate/ Sodium Phosphate (Fleet Enema) 133 ml DAILY PRN [place] CONSTIPATION; Start 07/12/16 at 23:30 Hydralazine HCl (Apresoline) 25 mg TID PO Last administered on 07/14/16 08:03; Admin Dose 25 MG; Start 07/13/16 at 21:00 YI RODRIGUEZ July 14, 2016 15:37
[2016-07-14] MEDS: SENNA TAB PO SCH (21:00)
[2016-07-14] MEDS: ATORVASTATIN 80 MG TAB PO SCH (21:01)
[2016-07-15] VITALS (11 sets, daily range): BP systolic 114–143; BP diastolic 58–77; PULSE 76–95; RESP 18
[2016-07-15] MEDS: ACCUCHECK AT 2AM (Patients on SS coverage) XX SCH (02:00)
[2016-07-15] MEDS: PANTOPRAZOLE (EC) 40 MG TAB PO SCH (05:55)
[2016-07-15] MEDS: LEVOTHYROXINE 88 MCG TAB PO SCH (05:55)
[2016-07-15] MEDS: Insulin NOVOLOG SS MILD Algorithm (SS with meals and bedtime) SC SCH ×5 (07:35→21:00)
[2016-07-15] MEDS: METOPROLOL (XL) 25 MG TAB PO SCH (09:00)
[2016-07-15] MEDS: DOCUSATE SODIUM 100 MG CAP PO SCH ×2 (09:00→21:51)
--- NOTE | 2016-07-15 09:17 | PN ---
DATE: 07/15/2016 SUBJECTIVE: The patient is stable, no acute events overnight. The patient had hemodialysis yesterd ay, tolerated well. OBJECTIVE: VITAL SIGNS: Blood pressure is 131/61, respiration 18, pulse 84, temperature 98.2. HEENT: Head is normocephalic. NECK: Supple. HEART: Regular rate. LUNGS: Show diminished breath sounds at base. ABDOMEN: Soft, nontender to palpation. No rebound or guarding. EXTREMITIES: Negative for clubbing, cyanosis, edema. DERMATOLOGIC: No rashes. MUSCULOSKELETAL: No joint effusions. NEUROLOGIC: No change in exam. MEDICATIONS: Have been reviewed. LABORATORY DATA: Has been reviewed. No new labs. ASSESSMENT AND PLAN: 1. Right hip fracture status post open reduction internal fixation. The patient is currently stabl e. Continue PT, OT. 2. End-stage renal disease. The patient had hemodialysis yesterday for 3 hours, tolerated well. 3. Hypertension. Continue current blood pressure regimen. 4. Diabetes. Continue current insulin regimen. 5. Cardiomyopathy, chronic disease. Continue current treatment plan. 6. History of peripheral vascular disease. 7. Chronic pain syndrome. Continue current pain regimen. 8. Mineral bone disorder. Continue to monitor calcium. Continue phos binders. 9. Hypothyroidism. Continue Synthroid. 10. Gastrointestinal and deep venous thrombosis prophylaxis. Continue proton pump inhibitor and Lo venox. Dictated By: BRANDI CHANEY/ANA Conf#: [id number] DID#: [id number]
[2016-07-15] MEDS: SEVELAMER CARBONATE 0.8 GM PKT PO SCH ×3 (09:41→17:35)
[2016-07-15] MEDS: REPAGLINIDE 1 MG TAB PO SCH ×3 (09:41→18:09)
[2016-07-15] MEDS: FERROUS SULFATE (EC) 325 MG TAB PO SCH (09:42)
[2016-07-15] MEDS: ESCITALOPRAM 10 MG TAB PO SCH (09:42)
[2016-07-15] MEDS: GABAPENTIN 100 MG CAP PO SCH (09:42)
[2016-07-15] MEDS: MULTIVIT/CA CARB/B CMPLX/FA TAB PO SCH (09:42)
--- NOTE | 2016-07-15 09:42 | CONS ---
Date/Time of Note Date/Time of Note DATE: 07/15/16 TIME: 09:39 Consult Date/Type/Reason Admit Date/Time July 12, 2016 at 21:05 Type of Consultation: Cardiology Ordering Provider: BRANDI ERICKSON DO Subjective Comfortable Objective pulm-cta mod assist 12 feet Vital Signs Date Time Temp Pulse Resp B/P Pulse Ox O2 Delivery O2 Flow Rate FiO2 07/15/16 07:30 98.4 79 18 122/58 96 Intake and Output 07/14/16 07/14/16 07/15/16 15:00 23:00 07:00 Intake Total 1240 ml 620 ml Output Total 350 ml 825 ml Balance 890 ml -205 ml Results/Medications Result Diagram: 07/13/16 0622 07/14/16 0715 Results 24 hrs Laboratory Tests Test 07/14/16 12:22 07/14/16 16:55 07/14/16 20:58 07/15/16 08:18 Bedside Glucose 230 H 230 H 146 109 Medications Current Medications Docusate Sodium (Colace) 100 mg BID PO Last administered on 07/14/16 21:01; Admin Dose 100 MG; Start 07/13/16 at 09:00 Senna (Senokot) 1 tab HS PO ; Start 07/13/16 at 21:00 Atorvastatin Calcium (Lipitor) 80 mg DAILY@21 PO Last administered on 07/14/16 21:01; Admin Dose 80 MG; Start 07/12/16 at 23:15 Miscellaneous Information 1 ea NOTE XX ; Start 07/12/16 at 23:30 Glucose (Glutose) 15 gm Q15M PRN PO DECREASED GLUCOSE; Start 07/12/16 at 23:30 Glucose (Glutose) 22.5 gm Q15M PRN PO DECREASED GLUCOSE; Start 07/12/16 at 23:30 Dextrose (D50w Syringe) 25 ml Q15M PRN IV DECREASED GLUCOSE; Start 07/12/16 at 23:30 Dextrose (D50w Syringe) 50 ml Q15M PRN IV DECREASED GLUCOSE; Start 07/12/16 at 23:30 Glucagon (Glucagen) 1 mg Q15M PRN IM DECREASED GLUCOSE; Start 07/12/16 at 23:30 Glucose (Glutose) 15 gm Q15M PRN BUCCAL DECREASED GLUCOSE; Start 07/12/16 at 23: 30 Diagnostic Test (Pha) (Accu-Chek) 1 XX ; Start 07/13/16 at 02:00 Enoxaparin Sodium (Lovenox) 30 mg DAILY SC Last administered on 07/14/16 08:00 ; Admin Dose 30 MG; Start 07/13/16 at 09:00 Bisacodyl (Dulcolax Supp) 10 mg DAILY PRN [place] CONSTIPATION; Start 07/12/16 at 23: 30 Escitalopram Oxalate (Lexapro) 10 mg DAILY PO Last administered on 07/14/16 08: 01; Admin Dose 10 MG; Start 07/13/16 at 09:00 Ferrous Sulfate (Ferrous Sulfate (Ec)) 325 mg DAILY PO Last administered on 07/14 08:02; Admin Dose 325 MG; Start 07/13/16 at 09:00 Gabapentin (Neurontin) 100 mg DAILY PO Last administered on 07/14/16 08:01; Admin Dose 100 MG; Start 07/13/16 at 09:00 Acetaminophen/ Hydrocodone Bitart ([place] (5/325)) 1 tab Q4H PRN PO PAIN Last administered on 07/14/16 10:08; Admin Dose 1 TAB; Start 07/12/16 at 23:30 Acetaminophen/ Hydrocodone Bitart ([place] (5/325)) 2 tab Q4H PRN PO PAIN; Start 07/12/16 at 23:30 Metoprolol Succinate (Toprol Xl) 25 mg DAILY PO Last administered on 07/14/16 08:02; Admin Dose 25 MG; Start 07/13/16 at 09:00 Morphine Sulfate (morphine) 2 mg Q4H PRN IV PAIN; Start 07/12/16 at 23:30 Multivit/Ca Carb/ B Cmplx/FA/Prenat (Billie-Roge) 1 tab DAILY PO Last administered on 07/14/16 08:01; Admin Dose 1 TAB; Start 07/13/16 at 09:00 Ondansetron HCl (Zofran Inj) 4 mg Q6H PRN IV NAUSEA AND/OR VOMITING; Start 07/12 at 23:30 Polyethylene Glycol (Miralax) 17 gm DAILY PO Last administered on 07/14/16 08: 01; Admin Dose 17 GM; Start 07/13/16 at 09:00 Sodium Biphosphate/ Sodium Phosphate (Fleet Enema) 133 ml DAILY PRN [place] CONSTIPATION; Start 07/12/16 at 23:30 Hydralazine HCl (Apresoline) 25 mg TID PO Last administered on 07/14/16t 08:03; Admin Dose 25 MG; Start 07/13/16 at 21:00 Assessment/Plan Additional Assessment/Plan Rehab- Right hip femoral neck fracture status post hemiarthroplasty. Continue rehab activities End-stage renal disease, on hemodialysis-f/b renal. Peripheral vascular disease with history of bypass. Diabetes mellitus type 2. Hypertension. History of coronary artery disease and CABG. History of cardiomyopathy. Cervical degenerative disk disease. Hyponatremia. Hypothyroidism. Ischial deep tissue injury in addition to bilateral heel decubitus ulcers- pressure relief FAYE SAHNI MD July 15, 2016 09:42
[2016-07-15] MEDS: POLYETHYLENE GLYCOL 17 GM PACKET PO SCH (09:44)
[2016-07-15] MEDS: ENOXAPARIN 30 MG/0.3 ML SYG SC SCH (09:44)
[2016-07-15] MEDS: HYDROCODONE/APAP (5/325) TAB PO PRN (11:39)
--- NOTE | 2016-07-15 12:45 | CONS ---
Date/Time of Note Date/Time of Note DATE: 07/15/16 TIME: 12:43 Assessment/Plan Assessment/Plan Additional Assessment/Plan 1. Preoperative evaluation prior to open reduction internal fixation of the right hip.-negative troponin x 3. Now Post-op s/p Hip ORIF - now in rehab, doing well 2. History of cardiomyopathy with decreased left ventricular ejection fraction , last known to be approximately 35% by echo February 2016 with a negative stress February 2016, revealing scar but no ischemia. Echo this admit EF 30-35% 3. History of permanent pacemaker implantation for bradyarrhythmias- with good function 4. History of coronary artery disease, status post coronary bypass graft surgery. 5. Peripheral arterial disease status post relatively recent lower extremity bypass surgery. 6. End-stage renal disease on hemodialysis - Rx as needed. 7. Diabetes mellitus. 8. Thyroid dysfunction. 9. Cardiomyopathy with decreased left ventricular ejection fraction. 10. Status post fall. 11. Hip fracture. 12. Arm swelling-Negative venous BLAYNE for DVT 07/07 - NO DVT noted 14. Hyponatremia 15.HTN-well controlled Consultation Date/Type/Reason Admit Date/Time July 12, 2016 at 21:05 Initial Consult Date Type of Consultation: Cardiology Referring Provider: BRANDI ERICKSON DO 24 HR Interval Summary Free Text/Dictation No acute events - in good fluid status now ROS: No fever, no chills, no nausea, no vomiting, no diarrhea/constipation No recent weight changes No chest pain, no PND, no orthopnea No dizziness, blurred vision No thirst, no heat or cold intolerance Exam/Review of Systems Vital Signs Vitals Vital Signs Date Time Temp Pulse Resp B/P Pulse Ox O2 Delivery O2 Flow Rate FiO2 07/15/16 07:30 98.4 79 18 122/58 96 Intake and Output 07/14/16 07/14/16 07/15/16 15:00 23:00 07:00 Intake Total 1240 ml 620 ml Output Total 350 ml 825 ml Balance 890 ml -205 ml Exam General: WN/WD/NAD, AOx 3 HEENT: Unicetric/atraumatic/EOMI (follow commands) NECK: JVD elevated, no thyromegaly Lymph: no lymphadenopathy HEART: regular with no S3, II/ systolic murmur at apex LUNGS: Coarse sounds ABD: soft, NT, ND, +BS : Intact Neuro: non focal SKIN: chronic changes EXT: trace edema, post op Results Result Diagram: 07/13/16 0622 07/14/16 0715 Results 24 hrs Laboratory Tests Test 07/14/16 16:55 07/14/16 20:58 07/15/16 08:18 07/15/16 12:20 Bedside Glucose 230 H 146 109 199 Medications Medications Current Medications Docusate Sodium (Colace) 100 mg BID PO Last administered on 07/14/16 21:01; Admin Dose 100 MG; Start 07/13/16 at 09:00 Senna (Senokot) 1 tab HS PO ; Start 07/13/16 at 21:00 Atorvastatin Calcium (Lipitor) 80 mg DAILY@21 PO Last administered on 07/14/16 21:01; Admin Dose 80 MG; Start 07/12/16 at 23:15 Miscellaneous Information 1 ea NOTE XX ; Start 07/12/16 at 23:30 Glucose (Glutose) 15 gm Q15M PRN PO DECREASED GLUCOSE; Start 07/12/16 at 23:30 Glucose (Glutose) 22.5 gm Q15M PRN PO DECREASED GLUCOSE; Start 07/12/16 at 23:30 Dextrose (D50w Syringe) 25 ml Q15M PRN IV DECREASED GLUCOSE; Start 07/12/16 at 23:30 Dextrose (D50w Syringe) 50 ml Q15M PRN IV DECREASED GLUCOSE; Start 07/12/16 at 23:30 Glucagon (Glucagen) 1 mg Q15M PRN IM DECREASED GLUCOSE; Start 07/12/16 at 23:30 Glucose (Glutose) 15 gm Q15M PRN BUCCAL DECREASED GLUCOSE; Start 07/12/16 at 23: 30 Diagnostic Test (Pha) (Accu-Chek) 1 ea 02 XX ; Start 07/13/16 at 02:00 Enoxaparin Sodium (Lovenox) 30 mg DAILY SC Last administered on 07/15/16 09:44 ; Admin Dose 30 MG; Start 07/13/16 at 09:00 Bisacodyl (Dulcolax Supp) 10 mg DAILY PRN [place] CONSTIPATION; Start 07/12/16 at 23: 30 Escitalopram Oxalate (Lexapro) 10 mg DAILY PO Last administered on 07/15/16 09: 42; Admin Dose 10 MG; Start 07/13/16 at 09:00 Ferrous Sulfate (Ferrous Sulfate (Ec)) 325 mg DAILY PO Last administered on 07/15 09:42; Admin Dose 325 MG; Start 07/13/16 at 09:00 Gabapentin (Neurontin) 100 mg DAILY PO Last administered on 07/15/16 09:42; Admin Dose 100 MG; Start 07/13/16 at 09:00 Acetaminophen/ Hydrocodone Bitart ([place] (5/325)) 1 tab Q4H PRN PO PAIN Last administered on 07/15/16 11:39; Admin Dose 1 TAB; Start 07/12/16 at 23:30 Acetaminophen/ Hydrocodone Bitart ([place] (5/325)) 2 tab Q4H PRN PO PAIN; Start 07/12/16 at 23:30 Metoprolol Succinate (Toprol Xl) 25 mg DAILY PO Last administered on 07/14/16 08:02; Admin Dose 25 MG; Start 07/13/16 at 09:00 Morphine Sulfate (morphine) 2 mg Q4H PRN IV PAIN; Start 07/12/16 at 23:30 Multivit/Ca Carb/ B Cmplx/FA/Prenat (Billie-Roge) 1 tab DAILY PO Last administered on 07/15/16 09:42; Admin Dose 1 TAB; Start 07/13/16 at 09:00 Ondansetron HCl (Zofran Inj) 4 mg Q6H PRN IV NAUSEA AND/OR VOMITING; Start 07/12 at 23:30 Polyethylene Glycol (Miralax) 17 gm DAILY PO Last administered on 07/15/16 09: 44; Admin Dose 17 GM; Start 07/13/16 at 09:00 Sodium Biphosphate/ Sodium Phosphate (Fleet Enema) 133 ml DAILY PRN [place] CONSTIPATION; Start 07/12/16 at 23:30 Hydralazine HCl (Apresoline) 25 mg TID PO Last administered on 07/14/16 08:03; Admin Dose 25 MG; Start 07/13/16 at 21:00 PEDRO LUIS HUTTON MD July 15, 2016 12:45
[2016-07-15] MEDS ORDERED: EPOETIN 10000 UNITS/1 ML INJ (ESRD) SC ONE (18:00)
[2016-07-15] MEDS: SENNA TAB PO SCH (21:51)
[2016-07-15] MEDS: ATORVASTATIN 80 MG TAB PO SCH (21:51)
--- NOTE | 2016-07-15 23:39 | CONS ---
Date/Time of Note Date/Time of Note DATE: 07/15/16 TIME: 23:38 Assessment/Plan Assessment/Plan Chief Complaint/Hosp Course ANEMIA- COMPLEX, MULTIFACTORIAL MONITOR CLOSELY OBSERVE FOR BLEEDING AND HEMOLYSIS TRANSFUSE TO KEEP HB ABOVE 8 Right hip fracture status post open reduction internal fixation. The patient is currently stable. Continue PT, OT. End-stage renal disease. The patient was scheduled for hemodialysis today for 3 hours 2K bath, calcium 2.5. 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 The patient has been seen by Dr. Mesa. Started on acyclovir. Cultures have been sent. Will monitor. Hypertension. Continue current blood pressure regimen. Diabetes. Continue current insulin regimen. Cardiomyopathy, stable. Continue current medical management. Chronic pain syndrome. Continue current pain regimen. Hypothyroidism. Continue Synthroid. History of peripheral vascular disease. GI and deep vein thrombosis prophylaxis. Continue PPI and Lovenox. Problems: Consultation Date/Type/Reason Admit Date/Time July 12, 2016 at 21:05 [facility] Referring Provider: BRANDI ERICKSON DO 24 HR Interval Summary Free Text/Dictation all noted Exam/Review of Systems Vital Signs Vitals Vital Signs Date Time Temp Pulse Resp B/P Pulse Ox O2 Delivery O2 Flow Rate FiO2 07/15/16 21:35 82 14 07/15/16 07:30 98.4 122/58 96 Intake and Output 07/14/16 07/14/16 07/15/16 15:00 23:00 07:00 Intake Total 1240 ml 620 ml Output Total 350 ml 825 ml Balance 890 ml -205 ml Exam ANEMIA- COMPLEX, MULTIFACTORIAL MONITOR CLOSELY OBSERVE FOR BLEEDING AND HEMOLYSIS TRANSFUSE TO KEEP HB ABOVE 8 Right hip fracture status post open reduction internal fixation. The patient is currently stable. Continue PT, OT. End-stage renal disease. The patient was scheduled for hemodialysis today for 3 hours 2K bath, calcium 2.5. 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 The patient has been seen by Dr. Mesa. Started on acyclovir. Cultures have been sent. Will monitor. Hypertension. Continue current blood pressure regimen. Diabetes. Continue current insulin regimen. Cardiomyopathy, stable. Continue current medical management. Chronic pain syndrome. Continue current pain regimen. Hypothyroidism. Continue Synthroid. History of peripheral vascular disease. GI and deep vein thrombosis prophylaxis. Continue PPI and Lovenox. Results Result Diagram: 07/13/16 0622 07/14/16 0715 Results 24 hrs Laboratory Tests Test 07/15/16 08:18 07/15/16 12:20 07/15/16 17:47 07/15/16 21:46 Bedside Glucose 109 199 242 H 152 Medications Medications Current Medications Docusate Sodium (Colace) 100 mg BID PO Last administered on 07/15/16 21:51; Admin Dose 100 MG; Start 07/13/16 at 09:00 Senna (Senokot) 1 tab HS PO Last administered on 07/15/16 21:51; Admin Dose 1 TAB; Start 07/13/16 at 21:00 Atorvastatin Calcium (Lipitor) 80 mg DAILY@21 PO Last administered on 07/15/16 21:51; Admin Dose 80 MG; Start 07/12/16 at 23:15 Miscellaneous Information 1 ea NOTE XX ; Start 07/12/16 at 23:30 Glucose (Glutose) 15 gm Q15M PRN PO DECREASED GLUCOSE; Start 07/12/16 at 23:30 Glucose (Glutose) 22.5 gm Q15M PRN PO DECREASED GLUCOSE; Start 07/12/16 at 23:30 Dextrose (D50w Syringe) 25 ml Q15M PRN IV DECREASED GLUCOSE; Start 07/12/16 at 23:30 Dextrose (D50w Syringe) 50 ml Q15M PRN IV DECREASED GLUCOSE; Start 07/12/16 at 23:30 Glucagon (Glucagen) 1 mg Q15M PRN IM DECREASED GLUCOSE; Start 07/12/16 at 23:30 Glucose (Glutose) 15 gm Q15M PRN BUCCAL DECREASED GLUCOSE; Start 07/12/16 at 23: 30 Diagnostic Test (Pha) (Accu-Chek) 1 ea 02 XX ; Start 07/13/16 at 02:00 Bisacodyl (Dulcolax Supp) 10 mg DAILY PRN [place] CONSTIPATION; Start 07/12/16 at 23: 30 Escitalopram Oxalate (Lexapro) 10 mg DAILY PO Last administered on 07/15/16 09: 42; Admin Dose 10 MG; Start 07/13/16 at 09:00 Ferrous Sulfate (Ferrous Sulfate (Ec)) 325 mg DAILY PO Last administered on 07/15 09:42; Admin Dose 325 MG; Start 07/13/16 at 09:00 Gabapentin (Neurontin) 100 mg DAILY PO Last administered on 07/15/16 09:42; Admin Dose 100 MG; Start 07/13/16 at 09:00 Acetaminophen/ Hydrocodone Bitart ([place] (5/325)) 1 tab Q4H PRN PO PAIN Last administered on 07/15/16 11:39; Admin Dose 1 TAB; Start 07/12/16 at 23:30 Acetaminophen/ Hydrocodone Bitart ([place] (5/325)) 2 tab Q4H PRN PO PAIN; Start 07/12/16 at 23:30 Metoprolol Succinate (Toprol Xl) 25 mg DAILY PO Last administered on 07/14/16 08:02; Admin Dose 25 MG; Start 07/13/16 at 09:00 Morphine Sulfate (morphine) 2 mg Q4H PRN IV PAIN; Start 07/12/16 at 23:30 Multivit/Ca Carb/ B Cmplx/FA/Prenat ([place]ie-Roge) 1 tab DAILY PO Last administered on 07/15/16 09:42; Admin Dose 1 TAB; Start 07/13/16 at 09:00 Ondansetron HCl (Zofran Inj) 4 mg Q6H PRN IV NAUSEA AND/OR VOMITING; Start 07/12 at 23:30 Polyethylene Glycol (Miralax) 17 gm DAILY PO Last administered on 07/15/16 09: 44; Admin Dose 17 GM; Start 07/13/16 at 09:00 Sodium Biphosphate/ Sodium Phosphate (Fleet Enema) 133 ml DAILY PRN [place] CONSTIPATION; Start 07/12/16 at 23:30 Hydralazine HCl (Apresoline) 25 mg TID PO Last administered on 07/15/16 21:52; Admin Dose 25 MG; Start 07/13/16 at 21:00 Heparin Sodium (Porcine) (Heparin (5000 Units/0.5 ml)) 5,000 unit BID SC ; Start 07/16/16 at 09:00 FABY HORN MD July 15, 2016 23:39
[2016-07-16] MEDS: ACCUCHECK AT 2AM (Patients on SS coverage) XX SCH (02:00)
[2016-07-16] MEDS: LEVOTHYROXINE 88 MCG TAB PO SCH (07:06)
[2016-07-16] MEDS: PANTOPRAZOLE (EC) 40 MG TAB PO SCH ×2 (07:06→17:54)
[2016-07-16 07:30] VITALS: BP 126/59; RESP 18
[2016-07-16] MEDS: SEVELAMER CARBONATE 0.8 GM PKT PO SCH ×3 (07:55→17:55)
[2016-07-16] MEDS: Insulin NOVOLOG SS MILD Algorithm (SS with meals and bedtime) SC SCH ×4 (07:55→20:57)
[2016-07-16] MEDS: REPAGLINIDE 1 MG TAB PO SCH ×3 (07:56→17:54)
[2016-07-16] MEDS: GABAPENTIN 100 MG CAP PO SCH (08:03)
[2016-07-16] MEDS: MULTIVIT/CA CARB/B CMPLX/FA TAB PO SCH (08:03)
[2016-07-16] MEDS: FERROUS SULFATE (EC) 325 MG TAB PO SCH (08:03)
[2016-07-16] MEDS: ESCITALOPRAM 10 MG TAB PO SCH (08:03)
[2016-07-16] MEDS: DOCUSATE SODIUM 100 MG CAP PO SCH ×2 (08:03→20:50)
[2016-07-16] MEDS: METOPROLOL (XL) 25 MG TAB PO SCH ×2 (09:00→09:06)
[2016-07-16] MEDS: POLYETHYLENE GLYCOL 17 GM PACKET PO SCH (09:05)
[2016-07-16] MEDS: HEPARIN 5,000 UNIT/0.5 ML VIAL SC SCH ×2 (09:06→20:38)
--- NOTE | 2016-07-16 09:24 | PN ---
DATE: 07/16/2016 SUBJECTIVE: The patient is stable. Had hemodialysis yesterday, tolerated well. No other events no felipa. OBJECTIVE: VITAL SIGNS: Blood pressure 122/58, respiration 18, pulse 79, temperature 98.4. HEENT: Head is normocephalic. NECK: Supple. HEART: Regular rate. LUNGS: Show diminished breath sounds at base. ABDOMEN: Soft, nontender to palpation without rebound or guarding. EXTREMITIES: Negative for clubbing, cyanosis. No edema. DERMATOLOGIC: No rashes. MUSCULOSKELETAL: No joint effusions. NEUROLOGIC: No change in exam. MEDICATIONS: The patient's medications have been reviewed. LABORATORY DATA: Has been reviewed. ASSESSMENT AND PLAN: 1. Right hip fracture status post ORIF. The patient is currently stable. Continue PT, OT. 2. End-stage renal disease. Patient had hemodialysis yesterday, tolerated well. Plan for dialysis again tomorrow. 3. Hypertension. Continue current blood pressure regimen. 4. Diabetes. Continue current insulin regimen. 5. Cardiomyopathy. Continue current medical management. 6. History of peripheral vascular disease. 7. Chronic pain syndrome. Continue current pain regimen. 8. Mineral bone disorder. Continue to monitor calcium and phosphorus levels. 9. Hypothyroidism. Continue Synthroid. 10. Gastrointestinal and deep venous thrombosis prophylaxis. Continue proton pump inhibitor and Lo venox. Dictated By: BRANDI CHANEY/ANA Conf#: [id number] DID#: [id number]
--- NOTE | 2016-07-16 11:00 | CONS ---
Date/Time of Note Date/Time of Note DATE: 07/16/16 TIME: 10:58 Assessment/Plan Assessment/Plan Chief Complaint/Hosp Course ANEMIA- COMPLEX, MULTIFACTORIAL MONITOR CLOSELY OBSERVE FOR BLEEDING AND HEMOLYSIS TRANSFUSE TO KEEP HB ABOVE 8 Right hip fracture status post open reduction internal fixation. The patient is currently stable. Continue PT, OT. End-stage renal disease. The patient was scheduled for hemodialysis today for 3 hours 2K bath, calcium 2.5. 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 The patient has been seen by Dr. Mesa. Started on acyclovir. Cultures have been sent. Will monitor. Hypertension. Continue current blood pressure regimen. Diabetes. Continue current insulin regimen. Cardiomyopathy, stable. Continue current medical management. Chronic pain syndrome. Continue current pain regimen. Hypothyroidism. Continue Synthroid. History of peripheral vascular disease. GI and deep vein thrombosis prophylaxis. Continue PPI and Lovenox. Problems: Consultation Date/Type/Reason Admit Date/Time July 12, 2016 at 21:05 Type of Consultation: [facility] Referring Provider: BRANDI ERICKSON DO 24 HR Interval Summary Free Text/Dictation + pubic lesions Exam/Review of Systems Vital Signs Vitals Vital Signs Date Time Temp Pulse Resp B/P Pulse Ox O2 Delivery O2 Flow Rate FiO2 07/16/16 07:30 98.0 84 18 126/59 98 Intake and Output 07/15/16 07/15/16 07/16/16 15:00 23:00 07:00 Intake Total 1200 ml 250 ml Output Total 2401 ml Balance -1201 ml 250 ml Exam HEENT: Head is normocephalic. NECK: Supple. HEART: Regular rate. LUNGS: Show diminished breath sounds at base. ABDOMEN: Soft, nontender to palpation without rebound or guarding. EXTREMITIES: Negative for clubbing, cyanosis. No edema. DERMATOLOGIC: No rashes. MUSCULOSKELETAL: No joint effusions. NEUROLOGIC: No change in exam. + pubic lesions: SEVERAL PURULENT, SMALL Results Result Diagram: 07/13/16 0622 07/14/16 0715 Results 24 hrs Laboratory Tests Test 07/15/16 12:20 07/15/16 17:47 07/15/16 21:46 07/16/16 07:40 Bedside Glucose 199 242 H 152 175 Medications Medications Current Medications Docusate Sodium (Colace) 100 mg BID PO Last administered on 07/16/16t 08:03; Admin Dose 100 MG; Start 07/13/16 at 09:00 Senna (Senokot) 1 tab HS PO Last administered on 07/15/16 21:51; Admin Dose 1 TAB; Start 07/13/16 at 21:00 Atorvastatin Calcium (Lipitor) 80 mg DAILY@21 PO Last administered on 07/15/16 21:51; Admin Dose 80 MG; Start 07/12/16 at 23:15 Miscellaneous Information 1 ea NOTE XX ; Start 07/12/16 at 23:30 Glucose (Glutose) 15 gm Q15M PRN PO DECREASED GLUCOSE; Start 07/12/16 at 23:30 Glucose (Glutose) 22.5 gm Q15M PRN PO DECREASED GLUCOSE; Start 07/12/16 at 23:30 Dextrose (D50w Syringe) 25 ml Q15M PRN IV DECREASED GLUCOSE; Start 07/12/16 at 23:30 Dextrose (D50w Syringe) 50 ml Q15M PRN IV DECREASED GLUCOSE; Start 07/12/16 at 23:30 Glucagon (Glucagen) 1 mg Q15M PRN IM DECREASED GLUCOSE; Start 07/12/16 at 23:30 Glucose (Glutose) 15 gm Q15M PRN BUCCAL DECREASED GLUCOSE; Start 07/12/16 at 23: 30 Diagnostic Test (Pha) (Accu-Chek) 1 ea 02 XX ; Start 07/13/16 at 02:00 Bisacodyl (Dulcolax Supp) 10 mg DAILY PRN [place] CONSTIPATION; Start 07/12/16 at 23: 30 Escitalopram Oxalate (Lexapro) 10 mg DAILY PO Last administered on 07/16/16 08: 03; Admin Dose 10 MG; Start 07/13/16 at 09:00 Ferrous Sulfate (Ferrous Sulfate (Ec)) 325 mg DAILY PO Last administered on 07/16 08:03; Admin Dose 325 MG; Start 07/13/16 at 09:00 Gabapentin (Neurontin) 100 mg DAILY PO Last administered on 07/16/16 08:03; Admin Dose 100 MG; Start 07/13/16 at 09:00 Acetaminophen/ Hydrocodone Bitart ([place] (5/325)) 1 tab Q4H PRN PO PAIN Last administered on 07/15/16 11:39; Admin Dose 1 TAB; Start 07/12/16 at 23:30 Acetaminophen/ Hydrocodone Bitart ([place] (5/325)) 2 tab Q4H PRN PO PAIN; Start 07/12/16 at 23:30 Metoprolol Succinate (Toprol Xl) 25 mg DAILY PO Last administered on 07/14/16 08:02; Admin Dose 25 MG; Start 07/13/16 at 09:00 Morphine Sulfate (morphine) 2 mg Q4H PRN IV PAIN; Start 07/12/16 at 23:30 Multivit/Ca Carb/ B Cmplx/FA/Prenat ([place]) 1 tab DAILY PO Last administered on 07/16/16 08:03; Admin Dose 1 TAB; Start 07/13/16 at 09:00 Ondansetron HCl (Zofran Inj) 4 mg Q6H PRN IV NAUSEA AND/OR VOMITING; Start 07/12 at 23:30 Polyethylene Glycol (Miralax) 17 gm DAILY PO Last administered on 07/16/16 09: 05; Admin Dose 17 GM; Start 07/13/16 at 09:00 Sodium Biphosphate/ Sodium Phosphate (Fleet Enema) 133 ml DAILY PRN [place] CONSTIPATION; Start 07/12/16 at 23:30 Hydralazine HCl (Apresoline) 25 mg TID PO Last administered on 07/15/16 21:52; Admin Dose 25 MG; Start 07/13/16 at 21:00 Heparin Sodium (Porcine) (Heparin (5000 Units/0.5 ml)) 5,000 unit BID SC Last administered on 07/16/16 09:06; Admin Dose 5,000 UNIT; Start 07/16/16 at 09:00 Pantoprazole (Protonix Tab) 40 mg BID@,18 PO ; Start 07/16/16 at 18:00 FABY HORN MD July 16, 2016 11:00
--- NOTE | 2016-07-16 13:04 | CONS ---
Date/Time of Note Date/Time of Note DATE: 07/16/16 TIME: 13:02 Assessment/Plan Assessment/Plan Additional Assessment/Plan . Preoperative evaluation prior to open reduction internal fixation of the right hip.-negative troponin x 3. Now Post-op s/p Hip ORIF - now in rehab, doing well - CON'T REHAB 2. History of cardiomyopathy with decreased left ventricular ejection fraction , last known to be approximately 35% by echo February 2016 with a negative stress February 2016, revealing scar but no ischemia. Echo this admit EF 30-35% - NOT IN CHF BY EXAM. 3. History of permanent pacemaker implantation for bradyarrhythmias- with good function 4. History of coronary artery disease, status post coronary bypass graft surgery. 5. Peripheral arterial disease status post relatively recent lower extremity bypass surgery. 6. End-stage renal disease on hemodialysis - Rx as needed - plan for SUNDAY 7. Diabetes mellitus. 8. Thyroid dysfunction. 9. Cardiomyopathy with decreased left ventricular ejection fraction. 10. Status post fall. 11. Hip fracture. 12. Arm swelling-Negative venous BLAYNE for DVT 07/07 - NO DVT noted 14. Hyponatremia 15.HTN-well controlled Consultation Date/Type/Reason Admit Date/Time July 12, 2016 at 21:05 Type of Consultation: [facility] Referring Provider: BRANDI ERICKSON DO 24 HR Interval Summary Free Text/Dictation NO acute change - doing well with rehab. ROS: No fever, no chills, no nausea, no vomiting, no diarrhea/constipation No recent weight changes No chest pain, no PND, no orthopnea No dizziness, blurred vision No thirst, no heat or cold intolerance Exam/Review of Systems Vital Signs Vitals Vital Signs Date Time Temp Pulse Resp B/P Pulse Ox O2 Delivery O2 Flow Rate FiO2 07/16/16 07:30 98.0 84 18 126/59 98 Intake and Output 07/15/16 07/15/16 07/16/16 15:00 23:00 07:00 Intake Total 1200 ml 250 ml Output Total 2401 ml Balance -1201 ml 250 ml Exam General: WN/WD/NAD, AOx 2-3 HEENT: Unicetric/atraumatic/EOMI (follow commands) NECK: JVD elevated, no thyromegaly Lymph: no lymphadenopathy HEART: regular with no S3, II/ systolic murmur at apex, pacer LUNGS: Coarse sounds ABD: soft, NT, ND, +BS : Intact Neuro: non focal SKIN: chronic changes EXT: trace edema, post op Results Result Diagram: 07/13/16 0622 07/14/16 0715 Results 24 hrs Laboratory Tests Test 07/15/16 17:47 07/15/16 21:46 07/16/16 07:40 07/16/16 12:14 Bedside Glucose 242 H 152 175 250 H Medications Medications Current Medications Docusate Sodium (Colace) 100 mg BID PO Last administered on 07/16/16 08:03; Admin Dose 100 MG; Start 07/13/16 at 09:00 Senna (Senokot) 1 tab HS PO Last administered on 07/15/16 21:51; Admin Dose 1 TAB; Start 07/13/16 at 21:00 Atorvastatin Calcium (Lipitor) 80 mg DAILY@21 PO Last administered on 07/15/16 21:51; Admin Dose 80 MG; Start 07/12/16 at 23:15 Miscellaneous Information 1 ea NOTE XX ; Start 07/12/16 at 23:30 Glucose (Glutose) 15 gm Q15M PRN PO DECREASED GLUCOSE; Start 07/12/16 at 23:30 Glucose (Glutose) 22.5 gm Q15M PRN PO DECREASED GLUCOSE; Start 07/12/16 at 23:30 Dextrose (D50w Syringe) 25 ml Q15M PRN IV DECREASED GLUCOSE; Start 07/12/16 at 23:30 Dextrose (D50w Syringe) 50 ml Q15M PRN IV DECREASED GLUCOSE; Start 07/12/16 at 23:30 Glucagon (Glucagen) 1 mg Q15M PRN IM DECREASED GLUCOSE; Start 07/12/16 at 23:30 Glucose (Glutose) 15 gm Q15M PRN BUCCAL DECREASED GLUCOSE; Start 07/12/16 at 23: 30 Diagnostic Test (Pha) (Accu-Chek) 1 ea 02 XX ; Start 07/13/16 at 02:00 Bisacodyl (Dulcolax Supp) 10 mg DAILY PRN [place] CONSTIPATION; Start 07/12/16 at 23: 30 Escitalopram Oxalate (Lexapro) 10 mg DAILY PO Last administered on 07/16/16 08: 03; Admin Dose 10 MG; Start 07/13/16 at 09:00 Ferrous Sulfate (Ferrous Sulfate (Ec)) 325 mg DAILY PO Last administered on 07/16 08:03; Admin Dose 325 MG; Start 07/13/16 at 09:00 Gabapentin (Neurontin) 100 mg DAILY PO Last administered on 07/16/16 08:03; Admin Dose 100 MG; Start 07/13/16 at 09:00 Acetaminophen/ Hydrocodone Bitart ([place] (5/325)) 1 tab Q4H PRN PO PAIN Last administered on 07/15/16 11:39; Admin Dose 1 TAB; Start 07/12/16 at 23:30 Acetaminophen/ Hydrocodone Bitart ([place] (5/325)) 2 tab Q4H PRN PO PAIN; Start 07/12/16 at 23:30 Metoprolol Succinate (Toprol Xl) 25 mg DAILY PO Last administered on 07/14/16 08:02; Admin Dose 25 MG; Start 07/13/16 at 09:00 Morphine Sulfate (morphine) 2 mg Q4H PRN IV PAIN; Start 07/12/16 at 23:30 Multivit/Ca Carb/ B Cmplx/FA/Prenat ([place]) 1 tab DAILY PO Last administered on 07/16/16 08:03; Admin Dose 1 TAB; Start 07/13/16 at 09:00 Ondansetron HCl (Zofran Inj) 4 mg Q6H PRN IV NAUSEA AND/OR VOMITING; Start 07/12 at 23:30 Polyethylene Glycol (Miralax) 17 gm DAILY PO Last administered on 07/16/16 09: 05; Admin Dose 17 GM; Start 07/13/16 at 09:00 Sodium Biphosphate/ Sodium Phosphate (Fleet Enema) 133 ml DAILY PRN [place] CONSTIPATION; Start 07/12/16 at 23:30 Hydralazine HCl (Apresoline) 25 mg TID PO Last administered on 07/15/16 21:52; Admin Dose 25 MG; Start 07/13/16 at 21:00 Heparin Sodium (Porcine) (Heparin (5000 Units/0.5 ml)) 5,000 unit BID SC Last administered on 07/16/16 09:06; Admin Dose 5,000 UNIT; Start 07/16/16 at 09:00 Pantoprazole (Protonix Tab) 40 mg BID@06,18 PO ; Start 07/16/16 at 18:00 PEDRO LUIS HUTTON MD July 16, 2016 13:04
--- NOTE | 2016-07-16 14:33 | CONS ---
DATE OF ADMISSION: 07/12/2016 DATE OF CONSULTATION: 07/16/2016 TYPE OF CONSULTATION: Infectious Disease. REASON FOR CONSULTATION: Antibiotic management. HISTORY OF PRESENT ILLNESS: Lucía Clark is a 75-year-old female who was admitted to [facility] for status post right hip arthroplasty and is being seen for antibiotic management. Her past problems include: 1. End-stage renal disease on hemodialysis. 2. Access Perm-A-Cath. 3. History of peripheral vascular disease status post right lower extremity bypass. 4. History of cardiomyopathy. 5. Coronary artery disease status post coronary artery bypass graft. 6. History of arrhythmia. 7. Diabetes mellitus. She presented to [facility] suffering a mechanical fall, had a righ t hip arthroplasty in the past. She had an open reduction internal fixation of the right hip. Gannon lisa, she was quite weak subsequently, and was transferred to [facility] acute rehab for con tinued care. HOSPITAL COURSE: The patient had a white count of 6.1, H and H 9.1 and 29.6, platelet count 180,000 . BUN and creatinine was 41/3.03, although she is on hemodialysis. MICROBIOLOGY: She had no MRSA. The patient was noted to have blisters in the vaginal area and ther [facility] infectious disease was called. PAST MEDICAL HISTORY: Operations as outlined. FAMILY HISTORY: Noncontributory. SOCIAL HISTORY: She does not smoke, drink or abuse drugs. ALLERGIES: NONE TO PENICILLIN, SULFA OR FOODS. MEDICATIONS: Per chart. REVIEW OF SYSTEMS: As per HPI. PHYSICAL EXAMINATION: GENERAL: The patient is an elderly ill-appearing female who is awake, responsive, in no acute distr ess. VITAL SIGNS: Stable. She is afebrile. SKIN: Without generalized rash. HEENT: Within normal limits. NECK: Supple. LYMPH NODES: None palpable. CHEST: Decreased breath sounds at the bases. HEART: Without murmur or gallop. ABDOMEN: Soft, nontender, without organosplenomegaly or masses. EXTREMITIES: Without cyanosis, clubbing, or edema. RECTAL AND GENITAL EXAMINATIONS: There are some areas around the vagina, which may be blisters but it is unclear that they are. They may be broken. NEUROLOGIC: No focal neurological abnormalities. IMPRESSION AND PLAN: Will start the patient on Acyclovir 200 mg b.i.d. and get some herpes cultures , type 1 and type 2 herpes simplex. I will dictate my findings to Dr. Johns and the various consu ltants seeing this patient. Dictated By: NEHA ROSS MD, JD/ANA Conf#: [id number] DID#: [id number]
[2016-07-16 14:52] VITALS: BP 120/62; RESP 18
[2016-07-16] MEDS: ACYCLOVIR 200 MG CAP PO SCH ×2 (15:13→20:34)
[2016-07-16] MEDS: ATORVASTATIN 80 MG TAB PO SCH (20:34)
[2016-07-16] MEDS: SENNA TAB PO SCH (20:50)
[2016-07-16 22:01] VITALS: BP 127/60; RESP 20
[2016-07-17] VITALS (13 sets, daily range): BP systolic 102–136; BP diastolic 43–72; PULSE 72–79; RESP 16–18
[2016-07-17] MEDS: ACCUCHECK AT 2AM (Patients on SS coverage) XX SCH (02:00)
[2016-07-17] MEDS: PANTOPRAZOLE (EC) 40 MG TAB PO SCH ×2 (05:29→20:38)
[2016-07-17] MEDS: LEVOTHYROXINE 88 MCG TAB PO SCH ×3 (06:25→12:15)
[2016-07-17] MEDS: REPAGLINIDE 1 MG TAB PO SCH ×3 (07:30→17:30)
[2016-07-17] MEDS: Insulin NOVOLOG SS MILD Algorithm (SS with meals and bedtime) SC SCH ×4 (07:35→20:34)
[2016-07-17] MEDS: SEVELAMER CARBONATE 0.8 GM PKT PO SCH ×3 (07:35→20:00)
[2016-07-17] MEDS: METOPROLOL (XL) 25 MG TAB PO SCH (09:00)
[2016-07-17] MEDS: POLYETHYLENE GLYCOL 17 GM PACKET PO SCH (09:00)
--- NOTE | 2016-07-17 11:04 | PN ---
DATE: 07/17/2016 SUBJECTIVE: The patient was noted yesterday to have some erythema and blisters around the vaginal a riley. The patient was seen by Dr. Mesa and started on acyclovir. No other events noted. The osbaldo ent is scheduled for hemodialysis today. No other events noted. OBJECTIVE: VITAL SIGNS: Blood pressure is 127/60, respiration 20, pulse 90, temperature 98.0. HEENT: Head is normocephalic. NECK: Supple. HEART: Regular rate. LUNGS: Show diminished breath sounds at the base. ABDOMEN: Soft, nontender to palpation. No rebound or guarding. EXTREMITIES: Negative for clubbing, cyanosis. No edema. DERMATOLOGIC: No rashes. MUSCULOSKELETAL: No joint effusions. NEUROLOGIC: No change in exam. GENITOURINARY: On vaginal exam the patient has noted erythema under labia majora. MEDICATIONS: The patient's medications have been reviewed. LABORATORY DATA: Have been reviewed. ASSESSMENT AND PLAN: 1. Right hip fracture status post open reduction internal fixation. The patient is currently stabl e. Continue PT, OT. 2. End-stage renal disease. The patient was scheduled for hemodialysis today for 3 hours 2K bath, calcium 2.5. 3. 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 The patient has been seen by Dr. Mesa. Started on acyclov ir. Cultures have been sent. Will monitor. 4. Hypertension. Continue current blood pressure regimen. 5. Diabetes. Continue current insulin regimen. 6. Cardiomyopathy, stable. Continue current medical management. 7. Chronic pain syndrome. Continue current pain regimen. 8. Mineral bone disorder. Continue to monitor calcium and phosphorus levels 9. Hypothyroidism. Continue Synthroid. 10. History of peripheral vascular disease. 11. GI and deep vein thrombosis prophylaxis. Continue PPI and Lovenox. Dictated By: BRANDI ERICKSON DO NR/NTS Conf#: [id number] DID#: [id number]
[2016-07-17] MEDS: ACYCLOVIR 200 MG CAP PO SCH ×2 (12:04→20:35)
[2016-07-17] MEDS: GABAPENTIN 100 MG CAP PO SCH (12:05)
[2016-07-17] MEDS: DOCUSATE SODIUM 100 MG CAP PO SCH ×2 (12:05→20:38)
[2016-07-17] MEDS: FERROUS SULFATE (EC) 325 MG TAB PO SCH (12:05)
[2016-07-17] MEDS: ESCITALOPRAM 10 MG TAB PO SCH (12:05)
[2016-07-17] MEDS: MULTIVIT/CA CARB/B CMPLX/FA TAB PO SCH (12:12)
[2016-07-17] MEDS: HEPARIN 5,000 UNIT/0.5 ML VIAL SC SCH ×2 (12:12→20:35)
--- NOTE | 2016-07-17 13:25 | CONS ---
Date/Time of Note Date/Time of Note DATE: 07/17/16 TIME: 13:23 Consult Date/Type/Reason Admit Date/Time July 12, 2016 at 21:05 Type of Consultation: [facility] Ordering Provider: BRANDI ERICKSON DO Subjective Sleepy this morning Objective Vital Signs Date Time Temp Pulse Resp B/P Pulse Ox O2 Delivery O2 Flow Rate FiO2 07/17/16 07:30 97.9 83 18 124/57 98 Intake and Output 07/16/16 07/16/16 07/17/16 15:00 23:00 07:00 Intake Total 420 ml 200 ml Output Total 100 ml 420 ml Balance 320 ml -220 ml INTERDISCIPLINARY TEAM CONFERENCE BOWEL- Cont BLADDER-ESRD on HD SKIN- intact OT- DRESSING-mod/max BATHING-mod/max TOILETING-max PT- BED MOBILITY-mod TRANSFERS-mod/max AMBULATION-max 8 feet A/P- Interdisciplinary team conference held today. Please see interdisciplinary sheet. Working toward d.c. on 07/26 with post discharge follow up of physical therapy, occupational therapy. Results/Medications Result Diagram: 07/13/16 0622 07/14/16 0715 Results 24 hrs Laboratory Tests Test 07/16/16 17:31 07/16/16 20:46 07/17/16 11:17 Bedside Glucose 261 H 264 H 101 Medications Current Medications Docusate Sodium (Colace) 100 mg BID PO Last administered on 07/17/16 12:05; Admin Dose 100 MG; Start 07/13/16 at 09:00 Senna (Senokot) 1 tab HS PO Last administered on 07/15/16 21:51; Admin Dose 1 TAB; Start 07/13/16 at 21:00 Atorvastatin Calcium (Lipitor) 80 mg DAILY@21 PO Last administered on 07/16/16 20:34; Admin Dose 80 MG; Start 07/12/16 at 23:15 Miscellaneous Information 1 ea NOTE XX ; Start 07/12/16 at 23:30 Glucose (Glutose) 15 gm Q15M PRN PO DECREASED GLUCOSE; Start 07/12/16 at 23:30 Glucose (Glutose) 22.5 gm Q15M PRN PO DECREASED GLUCOSE; Start 07/12/16 at 23:30 Dextrose (D50w Syringe) 25 ml Q15M PRN IV DECREASED GLUCOSE; Start 07/12/16 at 23:30 Dextrose (D50w Syringe) 50 ml Q15M PRN IV DECREASED GLUCOSE; Start 07/12/16 at 23:30 Glucagon (Glucagen) 1 mg Q15M PRN IM DECREASED GLUCOSE; Start 07/12/16 at 23:30 Glucose (Glutose) 15 gm Q15M PRN BUCCAL DECREASED GLUCOSE; Start 07/12/16 at 23: 30 Diagnostic Test (Pha) (Accu-Chek) 1 ea 02 XX ; Start 07/13/16 at 02:00 Bisacodyl (Dulcolax Supp) 10 mg DAILY PRN [place] CONSTIPATION; Start 07/12/16 at 23: 30 Escitalopram Oxalate (Lexapro) 10 mg DAILY PO Last administered on 07/17/16 12: 05; Admin Dose 10 MG; Start 07/13/16 at 09:00 Ferrous Sulfate (Ferrous Sulfate (Ec)) 325 mg DAILY PO Last administered on 07/17 12:05; Admin Dose 325 MG; Start 07/13/16 at 09:00 Gabapentin (Neurontin) 100 mg DAILY PO Last administered on 07/17/16 12:05; Admin Dose 100 MG; Start 07/13/16 at 09:00 Acetaminophen/ Hydrocodone Bitart ([place] (5/325)) 1 tab Q4H PRN PO PAIN Last administered on 07/15/16 11:39; Admin Dose 1 TAB; Start 07/12/16 at 23:30 Acetaminophen/ Hydrocodone Bitart ([place] (5/325)) 2 tab Q4H PRN PO PAIN; Start 07/12/16 at 23:30 Metoprolol Succinate (Toprol Xl) 25 mg DAILY PO Last administered on 07/14/16 08:02; Admin Dose 25 MG; Start 07/13/16 at 09:00 Morphine Sulfate (morphine) 2 mg Q4H PRN IV PAIN; Start 07/12/16 at 23:30 Multivit/Ca Carb/ B Cmplx/FA/Prenat ([place]) 1 tab DAILY PO Last administered on 07/17/16 12:12; Admin Dose 1 TAB; Start 07/13/16 at 09:00 Ondansetron HCl (Zofran Inj) 4 mg Q6H PRN IV NAUSEA AND/OR VOMITING; Start 07/12 at 23:30 Polyethylene Glycol (Miralax) 17 gm DAILY PO Last administered on 07/16/16 09: 05; Admin Dose 17 GM; Start 07/13/16 at 09:00 Sodium Biphosphate/ Sodium Phosphate (Fleet Enema) 133 ml DAILY PRN [place] CONSTIPATION; Start 07/12/16 at 23:30 Hydralazine HCl (Apresoline) 25 mg TID PO Last administered on 07/15/16 21:52; Admin Dose 25 MG; Start 07/13/16 at 21:00 Heparin Sodium (Porcine) (Heparin (5000 Units/0.5 ml)) 5,000 unit BID SC Last administered on 07/17/16 12:12; Admin Dose 5,000 UNIT; Start 07/16/16 at 09:00 Pantoprazole (Protonix Tab) 40 mg BID@06,18 PO Last administered on 07/17/16 05 :29; Admin Dose 40 MG; Start 07/16/16 at 18:00 Acyclovir (Zovirax) 200 mg BID PO Last administered on 07/17/16 12:04; Admin Dose 200 MG; Start 07/16/16 at 14:30 FAYE SAHNI MD July 17, 2016 13:25
[2016-07-17 16:35] LABS: HEMOGLOBIN 9.4 g/dl (12.0-16.0)
--- NOTE | 2016-07-17 16:45 | PN ---
DATE: 07/17/2016 INFECTIOUS DISEASE PROGRESS NOTE SUBJECTIVE: No acute changes. No fevers. The patient is awake, lying comfortably in bed. Denies pain, discomfort. PHYSICAL EXAMINATION: GENERAL: Well-developed, fragile, elderly woman who is awake, in no distress. HEENT: Head atraumatic, normocephalic. Sclerae anicteric. Buccal mucosa dry. NECK: Supple, trachea midline. CHEST: Rise symmetrical. Breath sounds diminished to bases. HEART: S1, S2. ABDOMEN: Soft. Bowel tones present. ASSESSMENT: 1. Herpetic vaginal lesions, on acyclovir. 2. Status post right hip fracture requiring open reduction internal fixation. 3. Diabetes. 4. Hypertension. PLAN: The patient remains stable. Continue present care. Continue acyclovir. Physical therapy. Dictated By: TENISHA DENNIS SHREDDING MACHINE OPERATOR for NEHA HODGSON/ANA Conf#: [id number] DID#: [id number]
[2016-07-17] MEDS: ATORVASTATIN 80 MG TAB PO SCH (20:35)
[2016-07-17] MEDS: SENNA TAB PO SCH (20:38)
[2016-07-17] MEDS: EPOETIN 10000 UNITS/1 ML INJ (ESRD) SC SCH (21:50)
--- NOTE | 2016-07-17 23:40 | CONS ---
Date/Time of Note Date/Time of Note DATE: 07/17/16 TIME: 23:38 Assessment/Plan Assessment/Plan Chief Complaint/Hosp Course ANEMIA- COMPLEX, MULTIFACTORIAL MONITOR CLOSELY OBSERVE FOR BLEEDING AND HEMOLYSIS TRANSFUSE TO KEEP HB ABOVE 8 Right hip fracture status post open reduction internal fixation. The patient is currently stable. Continue PT, OT. End-stage renal disease. The patient was scheduled for hemodialysis today for 3 hours 2K bath, calcium 2.5. 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 The patient has been seen by Dr. Mesa. Started on acyclovir. Cultures have been sent. Will monitor. Hypertension. Continue current blood pressure regimen. Diabetes. Continue current insulin regimen. Cardiomyopathy, stable. Continue current medical management. Chronic pain syndrome. Continue current pain regimen. Hypothyroidism. Continue Synthroid. History of peripheral vascular disease. GI and deep vein thrombosis prophylaxis. Continue PPI and Lovenox. Problems: Consultation Date/Type/Reason Admit Date/Time July 12, 2016 at 21:05 Type of Consultation: [facility] Referring Provider: BRANDI ERICKSON DO 24 HR Interval Summary Free Text/Dictation The patient was noted yesterday to have some erythema and blisters around the vaginal area. The patient was seen by Dr. Mesa and started on acyclovir. No other events noted. The patient is scheduled for hemodialysis today. No other events noted. count reviewed Exam/Review of Systems Vital Signs Vitals Vital Signs Date Time Temp Pulse Resp B/P Pulse Ox O2 Delivery O2 Flow Rate FiO2 07/17/16 19:38 98.6 68 16 114/53 99 Intake and Output 07/16/16 07/16/16 07/17/16 15:00 23:00 07:00 Intake Total 420 ml 200 ml Output Total 100 ml 420 ml Balance 320 ml -220 ml Exam HEENT: Head is normocephalic. NECK: Supple. HEART: Regular rate. LUNGS: Show diminished breath sounds at the base. ABDOMEN: Soft, nontender to palpation. No rebound or guarding. EXTREMITIES: Negative for clubbing, cyanosis. No edema. DERMATOLOGIC: No rashes. MUSCULOSKELETAL: No joint effusions. NEUROLOGIC: No change in exam. GENITOURINARY: On vaginal exam the patient has noted erythema under labia majora. Results Result Diagram: 07/17/16 1626 07/14/16 0715 Results 24 hrs Laboratory Tests Test 07/17/16 11:17 07/17/16 16:26 07/17/16 19:15 07/17/16 20:09 Bedside Glucose 101 167 200 Hemoglobin 9.4 L Hematocrit 30.0 L Medications Medications Current Medications Docusate Sodium (Colace) 100 mg BID PO Last administered on 07/17/16 20:38; Admin Dose 100 MG; Start 07/13/16 at 09:00 Senna (Senokot) 1 tab HS PO Last administered on 07/17/16 20:38; Admin Dose 1 TAB; Start 07/13/16 at 21:00 Atorvastatin Calcium (Lipitor) 80 mg DAILY@21 PO Last administered on 07/17/16 20:35; Admin Dose 80 MG; Start 07/12/16 at 23:15 Miscellaneous Information 1 ea NOTE XX ; Start 07/12/16 at 23:30 Glucose (Glutose) 15 gm Q15M PRN PO DECREASED GLUCOSE; Start 07/12/16 at 23:30 Glucose (Glutose) 22.5 gm Q15M PRN PO DECREASED GLUCOSE; Start 07/12/16 at 23:30 Dextrose (D50w Syringe) 25 ml Q15M PRN IV DECREASED GLUCOSE; Start 07/12/16 at 23:30 Dextrose (D50w Syringe) 50 ml Q15M PRN IV DECREASED GLUCOSE; Start 07/12/16 at 23:30 Glucagon (Glucagen) 1 mg Q15M PRN IM DECREASED GLUCOSE; Start 07/12/16 at 23:30 Glucose (Glutose) 15 gm Q15M PRN BUCCAL DECREASED GLUCOSE; Start 07/12/16 at 23: 30 Diagnostic Test (Pha) (Accu-Chek) 1 ea 02 XX ; Start 07/13/16 at 02:00 Bisacodyl (Dulcolax Supp) 10 mg DAILY PRN [place] CONSTIPATION; Start 07/12/16 at 23: 30 Escitalopram Oxalate (Lexapro) 10 mg DAILY PO Last administered on 07/17/16 12: 05; Admin Dose 10 MG; Start 07/13/16 at 09:00 Ferrous Sulfate (Ferrous Sulfate (Ec)) 325 mg DAILY PO Last administered on 07/17 12:05; Admin Dose 325 MG; Start 07/13/16 at 09:00 Gabapentin (Neurontin) 100 mg DAILY PO Last administered on 07/17/16 12:05; Admin Dose 100 MG; Start 07/13/16 at 09:00 Acetaminophen/ Hydrocodone Bitart ([place] (5/325)) 1 tab Q4H PRN PO PAIN Last administered on 07/15/16 11:39; Admin Dose 1 TAB; Start 07/12/16 at 23:30 Acetaminophen/ Hydrocodone Bitart ([place] (5/325)) 2 tab Q4H PRN PO PAIN; Start 07/12/16 at 23:30 Metoprolol Succinate (Toprol Xl) 25 mg DAILY PO Last administered on 07/14/16 08:02; Admin Dose 25 MG; Start 07/13/16 at 09:00 Morphine Sulfate (morphine) 2 mg Q4H PRN IV PAIN; Start 07/12/16 at 23:30 Multivit/Ca Carb/ B Cmplx/FA/Prenat ([place]ie-Roge) 1 tab DAILY PO Last administered on 07/17/16 12:12; Admin Dose 1 TAB; Start 07/13/16 at 09:00 Ondansetron HCl (Zofran Inj) 4 mg Q6H PRN IV NAUSEA AND/OR VOMITING; Start 07/12 at 23:30 Polyethylene Glycol (Miralax) 17 gm DAILY PO Last administered on 07/17/16 09: 00; Admin Dose 17 GM; Start 07/13/16 at 09:00 Sodium Biphosphate/ Sodium Phosphate (Fleet Enema) 133 ml DAILY PRN [place] CONSTIPATION; Start 07/12/16 at 23:30 Hydralazine HCl (Apresoline) 25 mg TID PO Last administered on 07/15/16 21:52; Admin Dose 25 MG; Start 07/13/16 at 21:00 Heparin Sodium (Porcine) (Heparin (5000 Units/0.5 ml)) 5,000 unit BID SC Last administered on 07/17/16 20:35; Admin Dose 5,000 UNIT; Start 07/16/16 at 09:00 Pantoprazole (Protonix Tab) 40 mg BID@,18 PO Last administered on 07/17/16 20 :38; Admin Dose 40 MG; Start 07/16/16 at 18:00 Acyclovir (Zovirax) 200 mg BID PO Last administered on 07/17/16 20:35; Admin Dose 200 MG; Start 07/16/16 at 14:30 FABY HORN MD July 17, 2016 23:40
[2016-07-18] MEDS: ACCUCHECK AT 2AM (Patients on SS coverage) XX SCH (02:00)
[2016-07-18] MEDS: LEVOTHYROXINE 88 MCG TAB PO SCH (06:23)
[2016-07-18] MEDS: PANTOPRAZOLE (EC) 40 MG TAB PO SCH ×2 (06:24→17:19)
[2016-07-18 08:16] VITALS: BP 143/63; RESP 18
[2016-07-18] MEDS: Insulin NOVOLOG SS MILD Algorithm (SS with meals and bedtime) SC SCH ×4 (08:45→20:44)
[2016-07-18] MEDS: HEPARIN 5,000 UNIT/0.5 ML VIAL SC SCH ×2 (08:45→20:43)
[2016-07-18] MEDS: ACYCLOVIR 200 MG CAP PO SCH ×2 (08:46→20:21)
[2016-07-18] MEDS: ESCITALOPRAM 10 MG TAB PO SCH (08:46)
[2016-07-18] MEDS: GABAPENTIN 100 MG CAP PO SCH (08:46)
[2016-07-18] MEDS: METOPROLOL (XL) 25 MG TAB PO SCH (08:46)
[2016-07-18] MEDS: REPAGLINIDE 1 MG TAB PO SCH ×4 (08:47→17:21)
[2016-07-18] MEDS: POLYETHYLENE GLYCOL 17 GM PACKET PO SCH (08:47)
[2016-07-18] MEDS: FERROUS SULFATE (EC) 325 MG TAB PO SCH (08:47)
[2016-07-18] MEDS: MULTIVIT/CA CARB/B CMPLX/FA TAB PO SCH (08:47)
[2016-07-18] MEDS: DOCUSATE SODIUM 100 MG CAP PO SCH ×2 (08:47→20:44)
[2016-07-18] MEDS: SEVELAMER CARBONATE 0.8 GM PKT PO SCH ×3 (08:47→17:20)
--- NOTE | 2016-07-18 10:04 | CONS ---
Date/Time of Note Date/Time of Note DATE: 07/18/16 TIME: 10:02 Assessment/Plan Assessment/Plan Additional Assessment/Plan . Preoperative evaluation prior to open reduction internal fixation of the right hip.-negative troponin x 3. Now Post-op s/p Hip ORIF - now in rehab, doing well - [facility] - recovering well, still some pain reported 2. History of cardiomyopathy with decreased left ventricular ejection fraction , last known to be approximately 35% by echo February 2016 with a negative stress February 2016, revealing scar but no ischemia. Echo this admit EF 30-35% - NOT IN CHF BY EXAM. 3. History of permanent pacemaker implantation for bradyarrhythmias- with good function - site looks well 4. History of coronary artery disease, status post coronary bypass graft surgery. 5. Peripheral arterial disease status post relatively recent lower extremity bypass surgery. 6. End-stage renal disease on hemodialysis - Rx as needed - plan for SUNDAY 7. Diabetes mellitus. 8. Thyroid dysfunction. 9. Cardiomyopathy with decreased left ventricular ejection fraction. 10. Status post fall. 11. Hip fracture. 12. Arm swelling-Negative venous BLAYNE for DVT 07/07 - NO DVT noted 14. Hyponatremia 15.HTN-well controlled Consultation Date/Type/Reason Admit Date/Time July 12, 2016 at 21:05 Type of Consultation: [facility] Referring Provider: BRANDI ERICKSON DO 24 HR Interval Summary Free Text/Dictation Pt con't to improve - good fluid status - will monitor clinically ROS: No fever, no chills, no nausea, no vomiting, no diarrhea/constipation No recent weight changes No chest pain, no PND, no orthopnea No dizziness, blurred vision No thirst, no heat or cold intolerance Exam/Review of Systems Vital Signs Vitals Vital Signs Date Time Temp Pulse Resp B/P Pulse Ox O2 Delivery O2 Flow Rate FiO2 07/18/16 08:16 98.6 78 18 143/63 96 Intake and Output 07/17/16 07/17/16 07/18/16 15:00 23:00 07:00 Intake Total 400 ml 1150 ml Output Total 4600 ml Balance -4200 ml 1150 ml Exam General: WN/WD/NAD, AOx 3 HEENT: Unicetric/atraumatic/EOMI (follow commands) NECK: JVD elevated, no thyromegaly Lymph: no lymphadenopathy HEART: regular with no S3, II/ systolic murmur at apex, pacer LUNGS: Coarse sounds ABD: soft, NT, ND, +BS : Intact Neuro: non focal SKIN: chronic changes EXT: trace edema Results Result Diagram: 07/17/16 1626 07/14/16 0715 Results 24 hrs Laboratory Tests Test 07/17/16 11:17 07/17/16 16:26 07/17/16 19:15 07/17/16 20:09 Bedside Glucose 101 167 200 Hemoglobin 9.4 L Hematocrit 30.0 L Test 07/18/16 02:04 07/18/16 07:45 Bedside Glucose 176 149 Medications Medications Current Medications Docusate Sodium (Colace) 100 mg BID PO Last administered on 07/18/16 08:47; Admin Dose 100 MG; Start 07/13/16 at 09:00 Senna (Senokot) 1 tab HS PO Last administered on 07/17/16 20:38; Admin Dose 1 TAB; Start 07/13/16 at 21:00 Atorvastatin Calcium (Lipitor) 80 mg DAILY@21 PO Last administered on 07/17/16 20:35; Admin Dose 80 MG; Start 07/12/16 at 23:15 Miscellaneous Information 1 ea NOTE XX ; Start 07/12/16 at 23:30 Glucose (Glutose) 15 gm Q15M PRN PO DECREASED GLUCOSE; Start 07/12/16 at 23:30 Glucose (Glutose) 22.5 gm Q15M PRN PO DECREASED GLUCOSE; Start 07/12/16 at 23:30 Dextrose (D50w Syringe) 25 ml Q15M PRN IV DECREASED GLUCOSE; Start 07/12/16 at 23:30 Dextrose (D50w Syringe) 50 ml Q15M PRN IV DECREASED GLUCOSE; Start 07/12/16 at 23:30 Glucagon (Glucagen) 1 mg Q15M PRN IM DECREASED GLUCOSE; Start 07/12/16 at 23:30 Glucose (Glutose) 15 gm Q15M PRN BUCCAL DECREASED GLUCOSE; Start 07/12/16 at 23: 30 Diagnostic Test (Pha) (Accu-Chek) 1 ea 02 XX ; Start 07/13/16 at 02:00 Bisacodyl (Dulcolax Supp) 10 mg DAILY PRN [place] CONSTIPATION; Start 07/12/16 at 23: 30 Escitalopram Oxalate (Lexapro) 10 mg DAILY PO Last administered on 07/18/16 08: 46; Admin Dose 10 MG; Start 07/13/16 at 09:00 Ferrous Sulfate (Ferrous Sulfate (Ec)) 325 mg DAILY PO Last administered on 07/18 08:47; Admin Dose 325 MG; Start 07/13/16 at 09:00 Gabapentin (Neurontin) 100 mg DAILY PO Last administered on 07/18/16 08:46; Admin Dose 100 MG; Start 07/13/16 at 09:00 Acetaminophen/ Hydrocodone Bitart ([place] (5/325)) 1 tab Q4H PRN PO PAIN Last administered on 07/15/16 11:39; Admin Dose 1 TAB; Start 07/12/16 at 23:30 Acetaminophen/ Hydrocodone Bitart ([place] (5/325)) 2 tab Q4H PRN PO PAIN; Start 07/12/16 at 23:30 Metoprolol Succinate (Toprol Xl) 25 mg DAILY PO Last administered on 07/18/16 08:46; Admin Dose 25 MG; Start 07/13/16 at 09:00 Morphine Sulfate (morphine) 2 mg Q4H PRN IV PAIN; Start 07/12/16 at 23:30 Multivit/Ca Carb/ B Cmplx/FA/Prenat (Billie-Roge) 1 tab DAILY PO Last administered on 07/18/16 08:47; Admin Dose 1 TAB; Start 07/13/16 at 09:00 Ondansetron HCl (Zofran Inj) 4 mg Q6H PRN IV NAUSEA AND/OR VOMITING; Start 07/12 at 23:30 Polyethylene Glycol (Miralax) 17 gm DAILY PO Last administered on 07/18/16 08: 47; Admin Dose 17 GM; Start 07/13/16 at 09:00 Sodium Biphosphate/ Sodium Phosphate (Fleet Enema) 133 ml DAILY PRN [place] CONSTIPATION; Start 07/12/16 at 23:30 Hydralazine HCl (Apresoline) 25 mg TID PO Last administered on 07/18/16 08:46; Admin Dose 25 MG; Start 07/13/16 at 21:00 Heparin Sodium (Porcine) (Heparin (5000 Units/0.5 ml)) 5,000 unit BID SC Last administered on 07/18/16 08:45; Admin Dose 5,000 UNIT; Start 07/16/16 at 09:00 Pantoprazole (Protonix Tab) 40 mg BID@06,18 PO Last administered on 07/18/16 06 :24; Admin Dose 40 MG; Start 07/16/16 at 18:00 Acyclovir (Zovirax) 200 mg BID PO Last administered on 07/18/16 08:46; Admin Dose 200 MG; Start 07/16/16 at 14:30 PEDRO LUIS HUTTON MD July 18, 2016 10:04
--- NOTE | 2016-07-18 11:21 | PN ---
DATE: 07/18/2016 SUBJECTIVE: The patient is stable, had hemodialysis yesterday, tolerated well. OBJECTIVE: VITAL SIGNS: Blood pressure is 143/62, respiration 18, pulse 78, temperature 98.6. HEENT: Head is normocephalic. NECK: Supple. HEART: Regular rate. LUNGS: Show diminished breath sounds at base. ABDOMEN: Soft, nontender to palpation without rebound or guarding. EXTREMITIES: Negative for clubbing, cyanosis. No edema. DERMATOLOGIC: No rashes, joint effusions. NEUROLOGIC: No change in exam. MEDICATIONS: The patient's medications have been reviewed. LABORATORY DATA: Have been reviewed. No new labs. ASSESSMENT AND PLAN: 1. Right hip fracture status post open reduction internal fixation. The patient is currently stabl e. Continue PT, OT. 2. End-stage renal disease. The patient had hemodialysis yesterday, tolerated well. Plan for next dialysis in next 1 to 2 days. 3. Herpes simplex. Continue acyclovir. 4. Hypertension. Continue current blood pressure regimen. 5. Diabetes. Continue Accu-Cheks, insulin sliding scale. 6. Cardiomyopathy, stable. Continue medical management. 7. Chronic pain syndrome. Continue current pain regimen. 8. Mineral bone disorder. Continue to monitor calcium and phosphorus levels. 9. Hypothyroidism. Continue Synthroid. 10. History of peripheral vascular disease. 11. Gastroesophageal and deep vein thrombosis prophylaxis. Continue Lovenox. Dictated By: BRANDI CHANEY/ANA Conf#: [id number] DID#: [id number]
--- NOTE | 2016-07-18 11:54 | CONS ---
Date/Time of Note Date/Time of Note DATE: 07/18/16 TIME: 11:53 Consult Date/Type/Reason Admit Date/Time July 12, 2016 at 21:05 Type of Consultation: [facility] Ordering Provider: BRANDI ERICKSON DO Subjective Doesn't want to take pain meds Objective pulm-cta mod/max Vital Signs Date Time Temp Pulse Resp B/P Pulse Ox O2 Delivery O2 Flow Rate FiO2 07/18/16 08:16 98.6 78 18 143/63 96 Intake and Output 07/17/16 07/17/16 07/18/16 14:59 22:59 06:59 Intake Total 400 ml 1150 ml Output Total 4600 ml Balance -4200 ml 1150 ml Results/Medications Result Diagram: 07/17/16 1626 07/14/16 0715 Results 24 hrs Laboratory Tests Test 07/17/16 16:26 07/17/16 19:15 07/17/16 20:09 07/18/16 02:04 Hemoglobin 9.4 L Hematocrit 30.0 L Bedside Glucose 167 200 176 Test 07/18/16 07:45 Bedside Glucose 149 Medications Current Medications Docusate Sodium (Colace) 100 mg BID PO Last administered on 07/18/16 08:47; Admin Dose 100 MG; Start 07/13/16 at 09:00 Senna (Senokot) 1 tab HS PO Last administered on 07/17/16 20:38; Admin Dose 1 TAB; Start 07/13/16 at 21:00 Atorvastatin Calcium (Lipitor) 80 mg DAILY@21 PO Last administered on 07/17/16 20:35; Admin Dose 80 MG; Start 07/12/16 at 23:15 Miscellaneous Information 1 ea NOTE XX ; Start 07/12/16 at 23:30 Glucose (Glutose) 15 gm Q15M PRN PO DECREASED GLUCOSE; Start 07/12/16 at 23:30 Glucose (Glutose) 22.5 gm Q15M PRN PO DECREASED GLUCOSE; Start 07/12/16 at 23:30 Dextrose (D50w Syringe) 25 ml Q15M PRN IV DECREASED GLUCOSE; Start 07/12/16 at 23:30 Dextrose (D50w Syringe) 50 ml Q15M PRN IV DECREASED GLUCOSE; Start 07/12/16 at 23:30 Glucagon (Glucagen) 1 mg Q15M PRN IM DECREASED GLUCOSE; Start 07/12/16 at 23:30 Glucose (Glutose) 15 gm Q15M PRN BUCCAL DECREASED GLUCOSE; Start 07/12/16 at 23: 30 Diagnostic Test (Pha) (Accu-Chek) 1 ea 02 XX ; Start 07/13/16 at 02:00 Bisacodyl (Dulcolax Supp) 10 mg DAILY PRN [place] CONSTIPATION; Start 07/12/16 at 23: 30 Escitalopram Oxalate (Lexapro) 10 mg DAILY PO Last administered on 07/18/16 08: 46; Admin Dose 10 MG; Start 07/13/16 at 09:00 Ferrous Sulfate (Ferrous Sulfate (Ec)) 325 mg DAILY PO Last administered on 07/18 08:47; Admin Dose 325 MG; Start 07/13/16 at 09:00 Gabapentin (Neurontin) 100 mg DAILY PO Last administered on 07/18/16 08:46; Admin Dose 100 MG; Start 07/13/16 at 09:00 Acetaminophen/ Hydrocodone Bitart ([place] (5/325)) 1 tab Q4H PRN PO PAIN Last administered on 07/15/16 11:39; Admin Dose 1 TAB; Start 07/12/16 at 23:30 Acetaminophen/ Hydrocodone Bitart ([place] (5/325)) 2 tab Q4H PRN PO PAIN; Start 07/12/16 at 23:30 Metoprolol Succinate (Toprol Xl) 25 mg DAILY PO Last administered on 07/18/16 08:46; Admin Dose 25 MG; Start 07/13/16 at 09:00 Morphine Sulfate (morphine) 2 mg Q4H PRN IV PAIN; Start 07/12/16 at 23:30 Multivit/Ca Carb/ B Cmplx/FA/Prenat ([place]ie-Roge) 1 tab DAILY PO Last administered on 07/18/16 08:47; Admin Dose 1 TAB; Start 07/13/16 at 09:00 Ondansetron HCl (Zofran Inj) 4 mg Q6H PRN IV NAUSEA AND/OR VOMITING; Start 07/12 at 23:30 Polyethylene Glycol (Miralax) 17 gm DAILY PO Last administered on 07/18/16 08: 47; Admin Dose 17 GM; Start 07/13/16 at 09:00 Sodium Biphosphate/ Sodium Phosphate (Fleet Enema) 133 ml DAILY PRN [place] CONSTIPATION; Start 07/12/16 at 23:30 Hydralazine HCl (Apresoline) 25 mg TID PO Last administered on 07/18/16 08:46; Admin Dose 25 MG; Start 07/13/16 at 21:00 Heparin Sodium (Porcine) (Heparin (5000 Units/0.5 ml)) 5,000 unit BID SC Last administered on 07/18/16 08:45; Admin Dose 5,000 UNIT; Start 07/16/16 at 09:00 Pantoprazole (Protonix Tab) 40 mg BID@06,18 PO Last administered on 07/18/16 06 :24; Admin Dose 40 MG; Start 07/16/16 at 18:00 Acyclovir (Zovirax) 200 mg BID PO Last administered on 07/18/16 08:46; Admin Dose 200 MG; Start 07/16/16 at 14:30 Assessment/Plan Additional Assessment/Plan Rehab- Right hip femoral neck fracture status post hemiarthroplasty. Continue rehab program End-stage renal disease, on hemodialysis-f/b renal. Peripheral vascular disease with history of bypass. Diabetes mellitus type 2. Hypertension. History of coronary artery disease and CABG. History of cardiomyopathy. Cervical degenerative disk disease. Hyponatremia. Hypothyroidism. Ischial deep tissue injury in addition to bilateral heel decubitus ulcers- pressure relief FAYE SAHNI MD July 18, 2016 11:54
--- NOTE | 2016-07-18 18:11 | CONS ---
Date/Time of Note Date/Time of Note DATE: 07/18/16 TIME: 18:11 Assessment/Plan Assessment/Plan Chief Complaint/Hosp Course ANEMIA- COMPLEX, MULTIFACTORIAL MONITOR CLOSELY OBSERVE FOR BLEEDING AND HEMOLYSIS TRANSFUSE TO KEEP HB ABOVE 8 Right hip fracture status post open reduction internal fixation. The patient is currently stable. Continue PT, OT. End-stage renal disease. The patient was scheduled for hemodialysis today for 3 hours 2K bath, calcium 2.5. 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 The patient has been seen by Dr. Mesa. Started on acyclovir. Cultures have been sent. Will monitor. Hypertension. Continue current blood pressure regimen. Diabetes. Continue current insulin regimen. Cardiomyopathy, stable. Continue current medical management. Chronic pain syndrome. Continue current pain regimen. Hypothyroidism. Continue Synthroid. History of peripheral vascular disease. GI and deep vein thrombosis prophylaxis. Continue PPI and Lovenox. Problems: Consultation Date/Type/Reason Admit Date/Time July 12, 2016 at 21:05 Type of Consultation: [facility] Referring Provider: BRANDI ERICKSON DO 24 HR Interval Summary Free Text/Dictation ALL NOTED NO NEW EVENTS The patient is stable, had hemodialysis yesterday, tolerated well. COUNT STABLE Exam/Review of Systems Vital Signs Vitals Vital Signs Date Time Temp Pulse Resp B/P Pulse Ox O2 Delivery O2 Flow Rate FiO2 07/18/16 08:16 98.6 78 18 143/63 96 Intake and Output 07/17/16 07/17/16 07/18/16 15:00 23:00 07:00 Intake Total 400 ml 1150 ml Output Total 4600 ml Balance -4200 ml 1150 ml Exam HEENT: Head is normocephalic. NECK: Supple. HEART: Regular rate. LUNGS: Show diminished breath sounds at base. ABDOMEN: Soft, nontender to palpation without rebound or guarding. EXTREMITIES: Negative for clubbing, cyanosis. No edema. DERMATOLOGIC: No rashes, joint effusions. NEUROLOGIC: No change in exa Results Result Diagram: 07/17/16 1626 07/14/16 0715 Results 24 hrs Laboratory Tests Test 07/17/16 19:15 07/17/16 20:09 07/18/16 02:04 07/18/16 07:45 Bedside Glucose 167 200 176 149 Test 07/18/16 11:46 07/18/16 17:02 Bedside Glucose 253 H 205 Medications Medications Current Medications Docusate Sodium (Colace) 100 mg BID PO Last administered on 07/18/16 08:47; Admin Dose 100 MG; Start 07/13/16 at 09:00 Senna (Senokot) 1 tab HS PO Last administered on 07/17/16 20:38; Admin Dose 1 TAB; Start 07/13/16 at 21:00 Atorvastatin Calcium (Lipitor) 80 mg DAILY@21 PO Last administered on 07/17/16 20:35; Admin Dose 80 MG; Start 07/12/16 at 23:15 Miscellaneous Information 1 ea NOTE XX ; Start 07/12/16 at 23:30 Glucose (Glutose) 15 gm Q15M PRN PO DECREASED GLUCOSE; Start 07/12/16 at 23:30 Glucose (Glutose) 22.5 gm Q15M PRN PO DECREASED GLUCOSE; Start 07/12/16 at 23:30 Dextrose (D50w Syringe) 25 ml Q15M PRN IV DECREASED GLUCOSE; Start 07/12/16 at 23:30 Dextrose (D50w Syringe) 50 ml Q15M PRN IV DECREASED GLUCOSE; Start 07/12/16 at 23:30 Glucagon (Glucagen) 1 mg Q15M PRN IM DECREASED GLUCOSE; Start 07/12/16 at 23:30 Glucose (Glutose) 15 gm Q15M PRN BUCC[place] DECREASED GLUCOSE; Start 07/12/16 at 23: 30 Diagnostic Test (Pha) (Accu-Chek) 1 ea 02 XX ; Start 07/13/16 at 02:00 Bisacodyl (Dulcolax Supp) 10 mg DAILY PRN [place] CONSTIPATION; Start 07/12/16 at 23: 30 Escitalopram Oxalate (Lexapro) 10 mg DAILY PO Last administered on 07/18/16 08: 46; Admin Dose 10 MG; Start 07/13/16 at 09:00 Ferrous Sulfate (Ferrous Sulfate (Ec)) 325 mg DAILY PO Last administered on 07/18 08:47; Admin Dose 325 MG; Start 07/13/16 at 09:00 Gabapentin (Neurontin) 100 mg DAILY PO Last administered on 07/18/16 08:46; Admin Dose 100 MG; Start 07/13/16 at 09:00 Acetaminophen/ Hydrocodone Bitart ([place] (5/325)) 1 tab Q4H PRN PO PAIN Last administered on 07/15/16 11:39; Admin Dose 1 TAB; Start 07/12/16 at 23:30 Acetaminophen/ Hydrocodone Bitart ([place] (5/325)) 2 tab Q4H PRN PO PAIN; Start 07/12/16 at 23:30 Metoprolol Succinate (Toprol Xl) 25 mg DAILY PO Last administered on 07/18/16 08:46; Admin Dose 25 MG; Start 07/13/16 at 09:00 Morphine Sulfate (morphine) 2 mg Q4H PRN IV PAIN; Start 07/12/16 at 23:30 Multivit/Ca Carb/ B Cmplx/FA/Prenat ([place]) 1 tab DAILY PO Last administered on 07/18/16 08:47; Admin Dose 1 TAB; Start 07/13/16 at 09:00 Ondansetron HCl (Zofran Inj) 4 mg Q6H PRN IV NAUSEA AND/OR VOMITING; Start 07/12 at 23:30 Polyethylene Glycol (Miralax) 17 gm DAILY PO Last administered on 07/18/16 08: 47; Admin Dose 17 GM; Start 07/13/16 at 09:00 Sodium Biphosphate/ Sodium Phosphate (Fleet Enema) 133 ml DAILY PRN [place] CONSTIPATION; Start 07/12/16 at 23:30 Hydralazine HCl (Apresoline) 25 mg TID PO Last administered on 07/18/16 08:46; Admin Dose 25 MG; Start 07/13/16 at 21:00 Heparin Sodium (Porcine) (Heparin (5000 Units/0.5 ml)) 5,000 unit BID SC Last administered on 07/18/16 08:45; Admin Dose 5,000 UNIT; Start 07/16/16 at 09:00 Pantoprazole (Protonix Tab) 40 mg BID@,18 PO Last administered on 07/18/16 17 :19; Admin Dose 40 MG; Start 07/16/16 at 18:00 Acyclovir (Zovirax) 200 mg BID PO Last administered on 07/18/16 08:46; Admin Dose 200 MG; Start 07/16/16 at 14:30 FABY HORN MD July 18, 2016 18:11
[2016-07-18] MEDS: ATORVASTATIN 80 MG TAB PO SCH (20:21)
[2016-07-18 20:40] VITALS: BP 127/57; RESP 18
[2016-07-18] MEDS: SENNA TAB PO SCH (20:44)
[2016-07-19] MEDS: ACCUCHECK AT 2AM (Patients on SS coverage) XX SCH (02:00)
[2016-07-19] MEDS: PANTOPRAZOLE (EC) 40 MG TAB PO SCH ×2 (05:19→18:00)
[2016-07-19 07:34] VITALS: BP 128/59; RESP 18
[2016-07-19] MEDS: LEVOTHYROXINE 88 MCG TAB PO SCH (08:20)
[2016-07-19] MEDS: HEPARIN 5,000 UNIT/0.5 ML VIAL SC SCH ×2 (08:21→20:51)
[2016-07-19] MEDS: ACYCLOVIR 200 MG CAP PO SCH ×2 (08:22→20:39)
[2016-07-19] MEDS: FERROUS SULFATE (EC) 325 MG TAB PO SCH (08:22)
[2016-07-19] MEDS: MULTIVIT/CA CARB/B CMPLX/FA TAB PO SCH (08:22)
[2016-07-19] MEDS: Insulin NOVOLOG SS MILD Algorithm (SS with meals and bedtime) SC SCH ×4 (08:22→20:40)
[2016-07-19] MEDS: DOCUSATE SODIUM 100 MG CAP PO SCH ×2 (08:23→20:39)
[2016-07-19] MEDS: REPAGLINIDE 1 MG TAB PO SCH ×3 (08:23→18:07)
[2016-07-19] MEDS: ESCITALOPRAM 10 MG TAB PO SCH (08:23)
[2016-07-19] MEDS: METOPROLOL (XL) 25 MG TAB PO SCH (08:23)
[2016-07-19] MEDS: GABAPENTIN 100 MG CAP PO SCH (08:23)
[2016-07-19] MEDS: POLYETHYLENE GLYCOL 17 GM PACKET PO SCH (08:24)
[2016-07-19] MEDS: SEVELAMER CARBONATE 0.8 GM PKT PO SCH ×3 (08:24→18:07)
--- NOTE | 2016-07-19 10:05 | PN ---
DATE: 07/19/2016 SUBJECTIVE: The patient is stable, no acute events overnight. No fevers, chills, nausea, vomiting. OBJECTIVE: VITAL SIGNS: Blood pressure is 128/59, respirations 18, pulse 80, temperature 98.4. HEENT: Head is normocephalic. NECK: Supple. HEART: Regular rate. LUNGS: Show diminished breath sounds at the bases. ABDOMEN: Soft, nontender to palpation. No rebound or guarding. EXTREMITIES: Negative for clubbing, cyanosis. No edema. DERMATOLOGIC: No rashes. MUSCULOSKELETAL: No joint effusions. NEUROLOGIC: No change in exam. MEDICATIONS: The patient's medications have been reviewed. LABORATORY DATA: Has been reviewed. No new labs. ASSESSMENT AND PLAN: 1. Right hip fracture, status post open reduction internal fixation. The patient is currently stab le. Continue PT, OT. 2. End-stage renal disease. Plan for hemodialysis today for 3 hours, 3 K bath, calcium 2.5. 3. Herpes simplex. Continue acyclovir. 4. Hypertension. Continue current blood pressure regimen. 5. Diabetes. Continue Accu-Cheks and insulin sliding scale. 6. Cardiomyopathy, stable. 7. Chronic pain syndrome. Continue current pain regimen. 8. Mineral bone disorder. Continue to monitor calcium and phosphorus levels. 9. Hypothyroidism. Continue Synthroid. 10. Gastrointestinal and deep venous thrombosis prophylaxis. Continue proton pump inhibitor and hep mony. 11. History of peripheral vascular disease, status post fem-pop. Dictated By: BRANDI CHANEY/ANA Conf#: [id number] DID#: [id number]
--- NOTE | 2016-07-19 10:53 | CONS ---
Date/Time of Note Date/Time of Note DATE: 07/19/16 TIME: 10:53 Consult Date/Type/Reason Admit Date/Time July 12, 2016 at 21:05 Type of Consultation: [facility] Ordering Provider: BRANDI ERICKSON DO Subjective Family present Objective pulm-cta abd-soft max/mod assist Vital Signs Date Time Temp Pulse Resp B/P Pulse Ox O2 Delivery O2 Flow Rate FiO2 07/19/16 07:34 98.4 80 18 128/59 97 Intake and Output 07/18/16 07/18/16 07/19/16 15:00 23:00 07:00 Intake Total 980 ml 360 ml 950 ml Balance 980 ml 360 ml 950 ml Results/Medications Result Diagram: 07/17/16 1626 Results 24 hrs Laboratory Tests Test 07/18/16 11:46 07/18/16 17:02 07/18/16 20:26 07/19/16 07:52 Bedside Glucose 253 H 205 160 146 Medications Current Medications Docusate Sodium (Colace) 100 mg BID PO Last administered on 07/19/16 08:23; Admin Dose 100 MG; Start 07/13/16 at 09:00 Senna (Senokot) 1 tab HS PO Last administered on 07/17/16 20:38; Admin Dose 1 TAB; Start 07/13/16 at 21:00 Atorvastatin Calcium (Lipitor) 80 mg DAILY@21 PO Last administered on 07/18/16 20:21; Admin Dose 80 MG; Start 07/12/16 at 23:15 Miscellaneous Information 1 ea NOTE XX ; Start 07/12/16 at 23:30 Glucose (Glutose) 15 gm Q15M PRN PO DECREASED GLUCOSE; Start 07/12/16 at 23:30 Glucose (Glutose) 22.5 gm Q15M PRN PO DECREASED GLUCOSE; Start 07/12/16 at 23:30 Dextrose (D50w Syringe) 25 ml Q15M PRN IV DECREASED GLUCOSE; Start 07/12/16 at 23:30 Dextrose (D50w Syringe) 50 ml Q15M PRN IV DECREASED GLUCOSE; Start 07/12/16 at 23:30 Glucagon (Glucagen) 1 mg Q15M PRN IM DECREASED GLUCOSE; Start 07/12/16 at 23:30 Glucose (Glutose) 15 gm Q15M PRN BUCCAL DECREASED GLUCOSE; Start 07/12/16 at 23: 30 Diagnostic Test (Pha) (Accu-Chek) 1 ea 02 XX ; Start 07/13/16 at 02:00 Bisacodyl (Dulcolax Supp) 10 mg DAILY PRN [place] CONSTIPATION; Start 07/12/16 at 23: 30 Escitalopram Oxalate (Lexapro) 10 mg DAILY PO Last administered on 07/19/16 08 :23; Admin Dose 10 MG; Start 07/13/16 at 09:00 Ferrous Sulfate (Ferrous Sulfate (Ec)) 325 mg DAILY PO Last administered on 08:22; Admin Dose 325 MG; Start 07/13/16 at 09:00 Gabapentin (Neurontin) 100 mg DAILY PO Last administered on 07/19/16 08:23; Admin Dose 100 MG; Start 07/13/16 at 09:00 Acetaminophen/ Hydrocodone Bitart ([place] (5/325)) 1 tab Q4H PRN PO PAIN Last administered on 07/15/16 11:39; Admin Dose 1 TAB; Start 07/12/16 at 23:30 Acetaminophen/ Hydrocodone Bitart ([place] (5/325)) 2 tab Q4H PRN PO PAIN; Start 07/12/16 at 23:30 Metoprolol Succinate (Toprol Xl) 25 mg DAILY PO Last administered on 07/19/16 08:23; Admin Dose 25 MG; Start 07/13/16 at 09:00 Morphine Sulfate (morphine) 2 mg Q4H PRN IV PAIN; Start 07/12/16 at 23:30 Multivit/Ca Carb/ B Cmplx/FA/Prenat ([place]ie-Roge) 1 tab DAILY PO Last administered on 07/19/16 08:22; Admin Dose 1 TAB; Start 07/13/16 at 09:00 Ondansetron HCl (Zofran Inj) 4 mg Q6H PRN IV NAUSEA AND/OR VOMITING; Start 07/12 at 23:30 Polyethylene Glycol (Miralax) 17 gm DAILY PO Last administered on 07/19/16 08: 24; Admin Dose 17 GM; Start 07/13/16 at 09:00 Sodium Biphosphate/ Sodium Phosphate (Fleet Enema) 133 ml DAILY PRN [place] CONSTIPATION; Start 07/12/16 at 23:30 Hydralazine HCl (Apresoline) 25 mg TID PO Last administered on 07/19/16 08:23 ; Admin Dose 25 MG; Start 07/13/16 at 21:00 Heparin Sodium (Porcine) (Heparin (5000 Units/0.5 ml)) 5,000 unit BID SC Last administered on 07/19/16 08:21; Admin Dose 5,000 UNIT; Start 07/16/16 at 09:00 Pantoprazole (Protonix Tab) 40 mg BID@06,18 PO Last administered on 07/19/16 05:19; Admin Dose 40 MG; Start 07/16/16 at 18:00 Acyclovir (Zovirax) 200 mg BID PO Last administered on 07/19/16 08:22; Admin Dose 200 MG; Start 07/16/16 at 14:30 Assessment/Plan Additional Assessment/Plan Rehab- Right hip femoral neck fracture status post hemiarthroplasty. Continue rehab therapies, and increase as tolerated End-stage renal disease, on hemodialysis-f/b renal. Peripheral vascular disease with history of bypass. Diabetes mellitus type 2. Hypertension. History of coronary artery disease and CABG. History of cardiomyopathy. Cervical degenerative disk disease. Hyponatremia. Hypothyroidism. Ischial deep tissue injury in addition to bilateral heel decubitus ulcers- pressure relief FAYE SAHNI MD July 19, 2016 10:53
--- NOTE | 2016-07-19 11:04 | CONS ---
Date/Time of Note Date/Time of Note DATE: 07/19/16 TIME: 11:04 Assessment/Plan Assessment/Plan Chief Complaint/Hosp Course ANEMIA- COMPLEX, MULTIFACTORIAL MONITOR CLOSELY OBSERVE FOR BLEEDING AND HEMOLYSIS TRANSFUSE TO KEEP HB ABOVE 8 Right hip fracture status post open reduction internal fixation. The patient is currently stable. Continue PT, OT. End-stage renal disease. The patient was scheduled for hemodialysis today for 3 hours 2K bath, calcium 2.5. 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 The patient has been seen by Dr. [place]. Started on acyclovir. Cultures have been sent. Will monitor. Hypertension. Continue current blood pressure regimen. Diabetes. Continue current insulin regimen. Cardiomyopathy, stable. Continue current medical management. Chronic pain syndrome. Continue current pain regimen. Hypothyroidism. Continue Synthroid. History of peripheral vascular disease. GI and deep vein thrombosis prophylaxis. Continue PPI and Lovenox. Problems: Consultation Date/Type/Reason Admit Date/Time July 12, 2016 at 21:05 Type of Consultation: [facility] Referring Provider: BRANDI ERICKSON DO 24 HR Interval Summary Free Text/Dictation all noted no new events + LE pain Exam/Review of Systems Vital Signs Vitals Vital Signs Date Time Temp Pulse Resp B/P Pulse Ox O2 Delivery O2 Flow Rate FiO2 07/19/16 07:34 98.4 80 18 128/59 97 Intake and Output 07/18/16 07/18/16 07/19/16 15:00 23:00 07:00 Intake Total 980 ml 360 ml 950 ml Balance 980 ml 360 ml 950 ml Exam HEENT: Head is normocephalic. NECK: Supple. HEART: Regular rate. LUNGS: Show diminished breath sounds at the bases. ABDOMEN: Soft, nontender to palpation. No rebound or guarding. EXTREMITIES: Negative for clubbing, cyanosis. No edema. DERMATOLOGIC: No rashes. MUSCULOSKELETAL: No joint effusions. NEUROLOGIC: No change in exam. Results Result Diagram: 07/17/16 1626 Results 24 hrs Laboratory Tests Test 07/18/16 11:46 07/18/16 17:02 07/18/16 20:26 07/19/16 07:52 Bedside Glucose 253 H 205 160 146 Medications Medications Current Medications Docusate Sodium (Colace) 100 mg BID PO Last administered on 07/19/16t 08:23; Admin Dose 100 MG; Start 07/13/16 at 09:00 Senna (Senokot) 1 tab HS PO Last administered on 07/17/16 20:38; Admin Dose 1 TAB; Start 07/13/16 at 21:00 Atorvastatin Calcium (Lipitor) 80 mg DAILY@21 PO Last administered on 07/18/16 20:21; Admin Dose 80 MG; Start 07/12/16 at 23:15 Miscellaneous Information 1 ea NOTE XX ; Start 07/12/16 at 23:30 Glucose (Glutose) 15 gm Q15M PRN PO DECREASED GLUCOSE; Start 07/12/16 at 23:30 Glucose (Glutose) 22.5 gm Q15M PRN PO DECREASED GLUCOSE; Start 07/12/16 at 23:30 Dextrose (D50w Syringe) 25 ml Q15M PRN IV DECREASED GLUCOSE; Start 07/12/16 at 23:30 Dextrose (D50w Syringe) 50 ml Q15M PRN IV DECREASED GLUCOSE; Start 07/12/16 at 23:30 Glucagon (Glucagen) 1 mg Q15M PRN IM DECREASED GLUCOSE; Start 07/12/16 at 23:30 Glucose (Glutose) 15 gm Q15M PRN BUCCAL DECREASED GLUCOSE; Start 07/12/16 at 23: 30 Diagnostic Test (Pha) (Accu-Chek) 1 ea 02 XX ; Start 07/13/16 at 02:00 Bisacodyl (Dulcolax Supp) 10 mg DAILY PRN [place] CONSTIPATION; Start 07/12/16 at 23: 30 Escitalopram Oxalate (Lexapro) 10 mg DAILY PO Last administered on 07/19/16 08 :23; Admin Dose 10 MG; Start 07/13/16 at 09:00 Ferrous Sulfate (Ferrous Sulfate (Ec)) 325 mg DAILY PO Last administered on 08:22; Admin Dose 325 MG; Start 07/13/16 at 09:00 Gabapentin (Neurontin) 100 mg DAILY PO Last administered on 07/19/16 08:23; Admin Dose 100 MG; Start 07/13/16 at 09:00 Acetaminophen/ Hydrocodone Bitart ([place] (5/325)) 1 tab Q4H PRN PO PAIN Last administered on 07/15/16 11:39; Admin Dose 1 TAB; Start 07/12/16 at 23:30 Acetaminophen/ Hydrocodone Bitart ([place] (5/325)) 2 tab Q4H PRN PO PAIN; Start 07/12/16 at 23:30 Metoprolol Succinate (Toprol Xl) 25 mg DAILY PO Last administered on 07/19/16 08:23; Admin Dose 25 MG; Start 07/13/16 at 09:00 Morphine Sulfate (morphine) 2 mg Q4H PRN IV PAIN; Start 07/12/16 at 23:30 Multivit/Ca Carb/ B Cmplx/FA/Prenat (Billie-Roge) 1 tab DAILY PO Last administered on 07/19/16 08:22; Admin Dose 1 TAB; Start 07/13/16 at 09:00 Ondansetron HCl (Zofran Inj) 4 mg Q6H PRN IV NAUSEA AND/OR VOMITING; Start 07/12 at 23:30 Polyethylene Glycol (Miralax) 17 gm DAILY PO Last administered on 07/19/16 08: 24; Admin Dose 17 GM; Start 07/13/16 at 09:00 Sodium Biphosphate/ Sodium Phosphate (Fleet Enema) 133 ml DAILY PRN [place] CONSTIPATION; Start 07/12/16 at 23:30 Hydralazine HCl (Apresoline) 25 mg TID PO Last administered on 07/19/16 08:23 ; Admin Dose 25 MG; Start 07/13/16 at 21:00 Heparin Sodium (Porcine) (Heparin (5000 Units/0.5 ml)) 5,000 unit BID SC Last administered on 07/19/16 08:21; Admin Dose 5,000 UNIT; Start 07/16/16 at 09:00 Pantoprazole (Protonix Tab) 40 mg BID@06,18 PO Last administered on 07/19/16 05:19; Admin Dose 40 MG; Start 07/16/16 at 18:00 Acyclovir (Zovirax) 200 mg BID PO Last administered on 07/19/16 08:22; Admin Dose 200 MG; Start 07/16/16 at 14:30 FABY HORN MD July 19, 2016 11:04
[2016-07-19 11:50] LABS: HSV 1 IGG ANTIBODY >58.00 index; HSV 2 IGG ANTIBODY >23.00 index
--- NOTE | 2016-07-19 16:02 | CONS ---
Date/Time of Note Date/Time of Note DATE: 07/19/16 TIME: 16:00 Assessment/Plan Assessment/Plan Chief Complaint/Hosp Course IMPRESSION: 1. Preoperative evaluation prior to open reduction internal fixation of the right hip.-negative troponin x 3. Now Post-op s/p Hip ORIF 2. History of cardiomyopathy with decreased left ventricular ejection fraction , last known to be approximately 35% by echo February 2016 with a negative stress February 2016, revealing scar but no ischemia. Echo this admit EF 30-35% 3. History of permanent pacemaker implantation for bradyarrhythmias. 4. History of coronary artery disease, status post coronary bypass graft surgery. 5. Peripheral arterial disease status post relatively recent lower extremity bypass surgery. 6. End-stage renal disease on hemodialysis. 7. Diabetes mellitus. 8. Thyroid dysfunction. 9. Cardiomyopathy with decreased left ventricular ejection fraction. 10. Status post fall. 11. Hip fracture. 12. Arm swelling-Negative venous BLAYNE for DVT 07/07 14. Hyponatremia 15.HTN-well controlled Recc: -Tele -serial ecg's -Continue toprol/hydralazine as tolerated and follow BP closely with possible need to decrease doses to allow patient ton better tolerate -PT -HD for volume removal Problems: Consultation Date/Type/Reason Admit Date/Time July 12, 2016 at 21:05 Initial Consult Date 07/12/2016 Type of Consultation: Cardiology Reason for Consultation cardiomyopathy/CHF Referring Provider: BRANDI ERICKSON DO Exam/Review of Systems Vital Signs Vitals Vital Signs Date Time Temp Pulse Resp B/P Pulse Ox O2 Delivery O2 Flow Rate FiO2 07/19/16 07:34 98.4 80 18 128/59 97 Intake and Output 07/18/16 07/18/16 07/19/16 15:00 23:00 07:00 Intake Total 980 ml 360 ml 950 ml Balance 980 ml 360 ml 950 ml Exam Review of Systems: CONSTITUTIONAL: No fevers, chills. PULMONARY: No sob CARDIOVASCULAR: No chest pain/palpitations GASTROINTESTINAL: No nausea/vomiting. GENITOURINARY: No hematuria/dysuria. MUSCULOSKELETAL: No myagias/arthalgias. PSYCHIATRIC: The patient denies depression. NEUROLOGIC: lethargic Constitutional: alert Psych: no complaints Head: normocephalic ENMT: mucosa pink and moist Neck: jvd (9 cm water), supple Respiratory: diminished breath sounds (at bases/B) Cardiovascular: regular rate and rhythm Gastrointestinal: non-tender, soft Musculoskeletal: muscle tone (normal) Extremities: edema (none) Neurological: other (No focal deficits) Results Result Diagram: 07/17/16 1626 Results 24 hrs Laboratory Tests Test 07/18/16 17:02 07/18/16 20:26 07/19/16 07:52 07/19/16 12:12 Bedside Glucose 205 160 146 222 H Medications Medications Current Medications Docusate Sodium (Colace) 100 mg BID PO Last administered on 07/19/16 08:23; Admin Dose 100 MG; Start 07/13/16 at 09:00 Senna (Senokot) 1 tab HS PO Last administered on 07/17/16 20:38; Admin Dose 1 TAB; Start 07/13/16 at 21:00 Atorvastatin Calcium (Lipitor) 80 mg DAILY@21 PO Last administered on 07/18/16 20:21; Admin Dose 80 MG; Start 07/12/16 at 23:15 Miscellaneous Information 1 ea NOTE XX ; Start 07/12/16 at 23:30 Glucose (Glutose) 15 gm Q15M PRN PO DECREASED GLUCOSE; Start 07/12/16 at 23:30 Glucose (Glutose) 22.5 gm Q15M PRN PO DECREASED GLUCOSE; Start 07/12/16 at 23:30 Dextrose (D50w Syringe) 25 ml Q15M PRN IV DECREASED GLUCOSE; Start 07/12/16 at 23:30 Dextrose (D50w Syringe) 50 ml Q15M PRN IV DECREASED GLUCOSE; Start 07/12/16 at 23:30 Glucagon (Glucagen) 1 mg Q15M PRN IM DECREASED GLUCOSE; Start 07/12/16 at 23:30 Glucose (Glutose) 15 gm Q15M PRN BUCCAL DECREASED GLUCOSE; Start 07/12/16 at 23: 30 Diagnostic Test (Pha) (Accu-Chek) 1 ea 02 XX ; Start 07/13/16 at 02:00 Bisacodyl (Dulcolax Supp) 10 mg DAILY PRN [place] CONSTIPATION; Start 07/12/16 at 23: 30 Escitalopram Oxalate (Lexapro) 10 mg DAILY PO Last administered on 07/19/16 08 :23; Admin Dose 10 MG; Start 07/13/16 at 09:00 Ferrous Sulfate (Ferrous Sulfate (Ec)) 325 mg DAILY PO Last administered on 08:22; Admin Dose 325 MG; Start 07/13/16 at 09:00 Gabapentin (Neurontin) 100 mg DAILY PO Last administered on 07/19/16 08:23; Admin Dose 100 MG; Start 07/13/16 at 09:00 Acetaminophen/ Hydrocodone Bitart ([place] (5/325)) 1 tab Q4H PRN PO PAIN Last administered on 07/15/16 11:39; Admin Dose 1 TAB; Start 07/12/16 at 23:30 Acetaminophen/ Hydrocodone Bitart ([place] (5/325)) 2 tab Q4H PRN PO PAIN; Start 07/12/16 at 23:30 Metoprolol Succinate (Toprol Xl) 25 mg DAILY PO Last administered on 07/19/16 08:23; Admin Dose 25 MG; Start 07/13/16 at 09:00 Morphine Sulfate (morphine) 2 mg Q4H PRN IV PAIN; Start 07/12/16 at 23:30 Multivit/Ca Carb/ B Cmplx/FA/Prenat (Billie-Roge) 1 tab DAILY PO Last administered on 07/19/16 08:22; Admin Dose 1 TAB; Start 07/13/16 at 09:00 Ondansetron HCl (Zofran Inj) 4 mg Q6H PRN IV NAUSEA AND/OR VOMITING; Start 07/12 at 23:30 Polyethylene Glycol (Miralax) 17 gm DAILY PO Last administered on 07/19/16 08: 24; Admin Dose 17 GM; Start 07/13/16 at 09:00 Sodium Biphosphate/ Sodium Phosphate (Fleet Enema) 133 ml DAILY PRN [place] CONSTIPATION; Start 07/12/16 at 23:30 Hydralazine HCl (Apresoline) 25 mg TID PO Last administered on 07/19/16 08:23 ; Admin Dose 25 MG; Start 07/13/16 at 21:00 Heparin Sodium (Porcine) (Heparin (5000 Units/0.5 ml)) 5,000 unit BID SC Last administered on 07/19/16 08:21; Admin Dose 5,000 UNIT; Start 07/16/16 at 09:00 Pantoprazole (Protonix Tab) 40 mg BID@06,18 PO Last administered on 07/19/16 05:19; Admin Dose 40 MG; Start 07/16/16 at 18:00 Acyclovir (Zovirax) 200 mg BID PO Last administered on 07/19/16 08:22; Admin Dose 200 MG; Start 07/16/16 at 14:30 YI RODRIGUEZ July 19, 2016 16:02
[2016-07-19] MEDS: ATORVASTATIN 80 MG TAB PO SCH (20:39)
[2016-07-19] MEDS: SENNA TAB PO SCH (20:39)
[2016-07-20] MEDS: ACCUCHECK AT 2AM (Patients on SS coverage) XX SCH (02:00)
[2016-07-20] MEDS: LEVOTHYROXINE 88 MCG TAB PO SCH (05:57)
[2016-07-20] MEDS: PANTOPRAZOLE (EC) 40 MG TAB PO SCH ×2 (05:57→17:15)
[2016-07-20 07:30] VITALS: BP 132/61; RESP 18
[2016-07-20] MEDS: Insulin NOVOLOG SS MILD Algorithm (SS with meals and bedtime) SC SCH ×4 (08:35→20:41)
[2016-07-20] MEDS: REPAGLINIDE 1 MG TAB PO SCH ×3 (08:39→17:15)
[2016-07-20] MEDS: SEVELAMER CARBONATE 0.8 GM PKT PO SCH ×3 (08:39→17:15)
[2016-07-20] MEDS: GABAPENTIN 100 MG CAP PO SCH (08:40)
[2016-07-20] MEDS: MULTIVIT/CA CARB/B CMPLX/FA TAB PO SCH (08:40)
[2016-07-20] MEDS: FERROUS SULFATE (EC) 325 MG TAB PO SCH (08:40)
[2016-07-20] MEDS: POLYETHYLENE GLYCOL 17 GM PACKET PO SCH (08:40)
[2016-07-20] MEDS: ESCITALOPRAM 10 MG TAB PO SCH (08:40)
[2016-07-20] MEDS: DOCUSATE SODIUM 100 MG CAP PO SCH ×2 (08:40→20:39)
[2016-07-20] MEDS: ACYCLOVIR 200 MG CAP PO SCH ×2 (08:41→20:40)
[2016-07-20] MEDS: METOPROLOL (XL) 25 MG TAB PO SCH (08:41)
[2016-07-20] MEDS: HEPARIN 5,000 UNIT/0.5 ML VIAL SC SCH ×2 (08:51→21:06)
[2016-07-20] MEDS: HYDROCODONE/APAP (5/325) TAB PO PRN (09:59)
--- NOTE | 2016-07-20 10:04 | PN ---
DATE: 07/20/2016 SUBJECTIVE: The patient is stable, no acute events overnight. No fevers, chills, nausea, vomiting. OBJECTIVE: VITAL SIGNS: Blood pressure 128/59, respiratory rate 23, pulse 80, temperature 98.4. HEENT: Head is normocephalic. NECK: Supple. HEART: Regular rate. LUNGS: Show diminished breath sounds at the bases. ABDOMEN: Soft, nontender to palpation. No rebound or guarding. EXTREMITIES: Negative for clubbing, cyanosis. No edema. DERMATOLOGIC: No rashes. MUSCULOSKELETAL: No joint effusions. NEUROLOGIC: No change in exam. MEDICATIONS: The patient's medications have been reviewed. LABORATORY DATA: Have been reviewed. No new labs. ASSESSMENT AND PLAN: 1. Right hip fracture, status post open reduction internal fixation. The patient is currently stab le. Continue PT, OT. 2. End-stage renal disease. Plan for dialysis tomorrow for 3 hours, 3 K bath, calcium 2.5. 3. Herpes simplex. Continue acyclovir. 4. Hypertension. Continue current blood pressure regimen. 5. Diabetes. Continue current insulin regimen. 6. Chronic pain syndrome. Continue current pain regimen. 7. Mineral bone disorder. Continue to monitor calcium and phosphorus levels. 8. Hypothyroidism. Continue Synthroid. 9. Cardiomyopathy. Continue medical management. 10. History of peripheral vascular disease, status post fem-pop. 11. Gastrointestinal and deep venous thrombosis prophylaxis. Continue proton pump inhibitor and he bashir. Dictated By: BRANDI CHANEY/ANA Conf#: [id number] DID#: [id number]
--- NOTE | 2016-07-20 11:47 | CONS ---
Date/Time of Note Date/Time of Note DATE: 07/20/16 TIME: 11:46 Consult Date/Type/Reason Admit Date/Time July 12, 2016 at 21:05 Type of Consultation: Cardiology Ordering Provider: BRANDI ERICKSON DO Subjective patient doesnt like taking meds Objective pulm-cta abd-soft max amb Vital Signs Date Time Temp Pulse Resp B/P Pulse Ox O2 Delivery O2 Flow Rate FiO2 07/19/16 07:34 98.4 80 18 128/59 97 Intake and Output 07/19/16 07/19/16 07/20/16 15:00 23:00 07:00 Intake Total 960 ml 360 ml Balance 960 ml 360 ml Results/Medications Result Diagram: 07/17/16 1626 Results 24 hrs Laboratory Tests Test 07/19/16 12:12 07/19/16 17:25 07/19/16 20:37 07/20/16 08:18 Bedside Glucose 222 H 180 162 90 Test 07/20/16 10:25 Bedside Glucose 165 Medications Current Medications Docusate Sodium (Colace) 100 mg BID PO Last administered on 07/20/16 08:40; Admin Dose 100 MG; Start 07/13/16 at 09:00 Senna (Senokot) 1 tab HS PO Last administered on 07/19/16 20:39; Admin Dose 1 TAB; Start 07/13/16 at 21:00 Atorvastatin Calcium (Lipitor) 80 mg DAILY@21 PO Last administered on 20:39; Admin Dose 80 MG; Start 07/12/16 at 23:15 Miscellaneous Information 1 ea NOTE XX ; Start 07/12/16 at 23:30 Glucose (Glutose) 15 gm Q15M PRN PO DECREASED GLUCOSE; Start 07/12/16 at 23:30 Glucose (Glutose) 22.5 gm Q15M PRN PO DECREASED GLUCOSE; Start 07/12/16 at 23:30 Dextrose (D50w Syringe) 25 ml Q15M PRN IV DECREASED GLUCOSE; Start 07/12/16 at 23:30 Dextrose (D50w Syringe) 50 ml Q15M PRN IV DECREASED GLUCOSE; Start 07/12/16 at 23:30 Glucagon (Glucagen) 1 mg Q15M PRN IM DECREASED GLUCOSE; Start 07/12/16 at 23:30 Glucose (Glutose) 15 gm Q15M PRN BUCCAL DECREASED GLUCOSE; Start 07/12/16 at 23: 30 Diagnostic Test (Pha) (Accu-Chek) 1 ea 02 XX ; Start 07/13/16 at 02:00 Bisacodyl (Dulcolax Supp) 10 mg DAILY PRN [place] CONSTIPATION; Start 07/12/16 at 23: 30 Escitalopram Oxalate (Lexapro) 10 mg DAILY PO Last administered on 07/20/16 08 :40; Admin Dose 10 MG; Start 07/13/16 at 09:00 Ferrous Sulfate (Ferrous Sulfate (Ec)) 325 mg DAILY PO Last administered on 08:40; Admin Dose 325 MG; Start 07/13/16 at 09:00 Gabapentin (Neurontin) 100 mg DAILY PO Last administered on 07/20/16 08:40; Admin Dose 100 MG; Start 07/13/16 at 09:00 Acetaminophen/ Hydrocodone Bitart ([place] (5/325)) 1 tab Q4H PRN PO PAIN Last administered on 07/20/16 09:59; Admin Dose 1 TAB; Start 07/12/16 at 23:30 Acetaminophen/ Hydrocodone Bitart ([place] (5/325)) 2 tab Q4H PRN PO PAIN; Start 07/12/16 at 23:30 Metoprolol Succinate (Toprol Xl) 25 mg DAILY PO Last administered on 07/20/16 08:41; Admin Dose 25 MG; Start 07/13/16 at 09:00 Morphine Sulfate (morphine) 2 mg Q4H PRN IV PAIN; Start 07/12/16 at 23:30 Multivit/Ca Carb/ B Cmplx/FA/Prenat ([place]-Roge) 1 tab DAILY PO Last administered on 07/20/16 08:40; Admin Dose 1 TAB; Start 07/13/16 at 09:00 Ondansetron HCl (Zofran Inj) 4 mg Q6H PRN IV NAUSEA AND/OR VOMITING; Start 07/12 at 23:30 Polyethylene Glycol (Miralax) 17 gm DAILY PO Last administered on 07/20/16 08: 40; Admin Dose 17 GM; Start 07/13/16 at 09:00 Sodium Biphosphate/ Sodium Phosphate (Fleet Enema) 133 ml DAILY PRN [place] CONSTIPATION; Start 07/12/16 at 23:30 Hydralazine HCl (Apresoline) 25 mg TID PO Last administered on 07/20/16 08:40 ; Admin Dose 25 MG; Start 07/13/16 at 21:00 Heparin Sodium (Porcine) (Heparin (5000 Units/0.5 ml)) 5,000 unit BID SC Last administered on 07/20/16 08:51; Admin Dose 5,000 UNIT; Start 07/16/16 at 09:00 Pantoprazole (Protonix Tab) 40 mg BID@,18 PO Last administered on 07/20/16 05:57; Admin Dose 40 MG; Start 07/16/16 at 18:00 Acyclovir (Zovirax) 200 mg BID PO Last administered on 07/20/16 08:41; Admin Dose 200 MG; Start 07/16/16 at 14:30 Assessment/Plan Additional Assessment/Plan Rehab- Right hip femoral neck fracture status post hemiarthroplasty. Continue rehab theapies with encouragement for activities End-stage renal disease, on hemodialysis-f/b renal. Peripheral vascular disease with history of bypass. Diabetes mellitus type 2. Hypertension. History of coronary artery disease and CABG. History of cardiomyopathy. Cervical degenerative disk disease. Hyponatremia. Hypothyroidism. Ischial deep tissue injury in addition to bilateral heel decubitus ulcers- pressure relief FAYE SAHNI MD July 20, 2016 11:47
--- NOTE | 2016-07-20 18:09 | CONS ---
Date/Time of Note Date/Time of Note DATE: 07/20/16 TIME: 18:09 Assessment/Plan Assessment/Plan Chief Complaint/Hosp Course ANEMIA- COMPLEX, MULTIFACTORIAL MONITOR CLOSELY OBSERVE FOR BLEEDING AND HEMOLYSIS TRANSFUSE TO KEEP HB ABOVE 8 Right hip fracture status post open reduction internal fixation. The patient is currently stable. Continue PT, OT. End-stage renal disease. The patient was scheduled for hemodialysis today for 3 hours 2K bath, calcium 2.5. 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 The patient has been seen by Dr. Mesa. Started on acyclovir. Cultures have been sent. Will monitor. Hypertension. Continue current blood pressure regimen. Diabetes. Continue current insulin regimen. Cardiomyopathy, stable. Continue current medical management. Chronic pain syndrome. Continue current pain regimen. Hypothyroidism. Continue Synthroid. History of peripheral vascular disease. GI and deep vein thrombosis prophylaxis. Continue PPI and Lovenox. Problems: Consultation Date/Type/Reason Admit Date/Time July 12, 2016 at 21:05 Type of Consultation: [facility] Referring Provider: BRANDI ERICKSON DO 24 HR Interval Summary Free Text/Dictation + le pain Exam/Review of Systems Vital Signs Vitals Vital Signs Date Time Temp Pulse Resp B/P Pulse Ox O2 Delivery O2 Flow Rate FiO2 07/20/16 07:30 97.8 76 18 132/61 96 Intake and Output 07/19/16 07/19/16 07/20/16 15:00 23:00 07:00 Intake Total 960 ml 360 ml Balance 960 ml 360 ml Exam HEENT: Head is normocephalic. NECK: Supple. HEART: Regular rate. LUNGS: Show diminished breath sounds at the bases. ABDOMEN: Soft, nontender to palpation. No rebound or guarding. EXTREMITIES: Negative for clubbing, cyanosis. No edema. DERMATOLOGIC: No rashes. MUSCULOSKELETAL: No joint effusions. NEUROLOGIC: No change in exam. Results Result Diagram: 07/17/16 1626 Results 24 hrs Laboratory Tests Test 07/19/16 20:37 07/20/16 08:18 07/20/16 10:25 07/20/16 12:25 Bedside Glucose 162 90 165 222 H Test 07/20/16 17:13 Bedside Glucose 186 Medications Medications Current Medications Docusate Sodium (Colace) 100 mg BID PO Last administered on 07/20/16t 08:40; Admin Dose 100 MG; Start 07/13/16 at 09:00 Senna (Senokot) 1 tab HS PO Last administered on 07/19/16 20:39; Admin Dose 1 TAB; Start 07/13/16 at 21:00 Atorvastatin Calcium (Lipitor) 80 mg DAILY@21 PO Last administered on 20:39; Admin Dose 80 MG; Start 07/12/16 at 23:15 Miscellaneous Information 1 ea NOTE XX ; Start 07/12/16 at 23:30 Glucose (Glutose) 15 gm Q15M PRN PO DECREASED GLUCOSE; Start 07/12/16 at 23:30 Glucose (Glutose) 22.5 gm Q15M PRN PO DECREASED GLUCOSE; Start 07/12/16 at 23:30 Dextrose (D50w Syringe) 25 ml Q15M PRN IV DECREASED GLUCOSE; Start 07/12/16 at 23:30 Dextrose (D50w Syringe) 50 ml Q15M PRN IV DECREASED GLUCOSE; Start 07/12/16 at 23:30 Glucagon (Glucagen) 1 mg Q15M PRN IM DECREASED GLUCOSE; Start 07/12/16 at 23:30 Glucose (Glutose) 15 gm Q15M PRN BUCCAL DECREASED GLUCOSE; Start 07/12/16 at 23: 30 Diagnostic Test (Pha) (Accu-Chek) 1 ea 02 XX ; Start 07/13/16 at 02:00 Bisacodyl (Dulcolax Supp) 10 mg DAILY PRN [place] CONSTIPATION; Start 07/12/16 at 23: 30 Escitalopram Oxalate (Lexapro) 10 mg DAILY PO Last administered on 07/20/16 08 :40; Admin Dose 10 MG; Start 07/13/16 at 09:00 Ferrous Sulfate (Ferrous Sulfate (Ec)) 325 mg DAILY PO Last administered on 08:40; Admin Dose 325 MG; Start 07/13/16 at 09:00 Gabapentin (Neurontin) 100 mg DAILY PO Last administered on 07/20/16 08:40; Admin Dose 100 MG; Start 07/13/16 at 09:00 Acetaminophen/ Hydrocodone Bitart ([place] (5/325)) 1 tab Q4H PRN PO PAIN Last administered on 07/20/16 09:59; Admin Dose 1 TAB; Start 07/12/16 at 23:30 Acetaminophen/ Hydrocodone Bitart ([place] (5/325)) 2 tab Q4H PRN PO PAIN; Start 07/12/16 at 23:30 Metoprolol Succinate (Toprol Xl) 25 mg DAILY PO Last administered on 07/20/16 08:41; Admin Dose 25 MG; Start 07/13/16 at 09:00 Morphine Sulfate (morphine) 2 mg Q4H PRN IV PAIN; Start 07/12/16 at 23:30 Multivit/Ca Carb/ B Cmplx/FA/Prenat (Billie-Roge) 1 tab DAILY PO Last administered on 07/20/16 08:40; Admin Dose 1 TAB; Start 07/13/16 at 09:00 Ondansetron HCl (Zofran Inj) 4 mg Q6H PRN IV NAUSEA AND/OR VOMITING; Start 07/12 at 23:30 Polyethylene Glycol (Miralax) 17 gm DAILY PO Last administered on 07/20/16 08: 40; Admin Dose 17 GM; Start 07/13/16 at 09:00 Sodium Biphosphate/ Sodium Phosphate (Fleet Enema) 133 ml DAILY PRN [place] CONSTIPATION; Start 07/12/16 at 23:30 Hydralazine HCl (Apresoline) 25 mg TID PO Last administered on 07/20/16 08:40 ; Admin Dose 25 MG; Start 07/13/16 at 21:00 Heparin Sodium (Porcine) (Heparin (5000 Units/0.5 ml)) 5,000 unit BID SC Last administered on 07/20/16 08:51; Admin Dose 5,000 UNIT; Start 07/16/16 at 09:00 Pantoprazole (Protonix Tab) 40 mg BID@06,18 PO Last administered on 07/20/16 17:15; Admin Dose 40 MG; Start 07/16/16 at 18:00 Acyclovir (Zovirax) 200 mg BID PO Last administered on 07/20/16 08:41; Admin Dose 200 MG; Start 07/16/16 at 14:30 FABY HORN MD July 20, 2016 18:09
--- NOTE | 2016-07-20 18:23 | CONS ---
Date/Time of Note Date/Time of Note DATE: 07/20/16 TIME: 18:21 Assessment/Plan Assessment/Plan Chief Complaint/Hosp Course IMPRESSION: 1. Preoperative evaluation prior to open reduction internal fixation of the right hip.-negative troponin x 3. Now Post-op s/p Hip ORIF 2. History of cardiomyopathy with decreased left ventricular ejection fraction , last known to be approximately 35% by echo February 2016 with a negative stress February 2016, revealing scar but no ischemia. Echo this admit EF 30-35% 3. History of permanent pacemaker implantation for bradyarrhythmias. 4. History of coronary artery disease, status post coronary bypass graft surgery. 5. Peripheral arterial disease status post relatively recent lower extremity bypass surgery. 6. End-stage renal disease on hemodialysis. 7. Diabetes mellitus. 8. Thyroid dysfunction. 9. Cardiomyopathy with decreased left ventricular ejection fraction. 10. Status post fall. 11. Hip fracture. 12. Arm swelling-Negative venous BLAYNE for DVT 07/07 14. Hyponatremia 15.HTN-well controlled Recc: -Tele -serial ecg's -Continue toprol/hydralazine as tolerated and follow BP closely with possible need to decrease doses to allow patient ton better tolerate -PT -HD for volume removal Problems: Consultation Date/Type/Reason Admit Date/Time July 12, 2016 at 21:05 Initial Consult Date 07/12/2016 Type of Consultation: Cardiology Reason for Consultation HTN Referring Provider: BRANDI ERICKSON DO Exam/Review of Systems Vital Signs Vitals Vital Signs Date Time Temp Pulse Resp B/P Pulse Ox O2 Delivery O2 Flow Rate FiO2 07/20/16 07:30 97.8 76 18 132/61 96 Intake and Output 07/19/16 07/19/16 07/20/16 15:00 23:00 07:00 Intake Total 960 ml 360 ml Balance 960 ml 360 ml Exam Review of Systems: CONSTITUTIONAL: No fevers, chills. PULMONARY: No sob CARDIOVASCULAR: No chest pain/palpitations GASTROINTESTINAL: No nausea/vomiting. GENITOURINARY: No hematuria/dysuria. MUSCULOSKELETAL: No myagias/arthalgias. PSYCHIATRIC: The patient denies depression. NEUROLOGIC: lethargic Constitutional: alert Psych: no complaints Head: normocephalic ENMT: mucosa pink and moist Neck: jvd (9 cm water), supple Respiratory: diminished breath sounds Cardiovascular: regular rate and rhythm Gastrointestinal: non-tender, soft Musculoskeletal: muscle tone (normal) Extremities: edema (none) Neurological: other (No focal deficits) Results Result Diagram: 07/17/16 1626 Results 24 hrs Laboratory Tests Test 07/19/16 20:37 07/20/16 08:18 07/20/16 10:25 07/20/16 12:25 Bedside Glucose 162 90 165 222 H Test 07/20/16 17:13 Bedside Glucose 186 Medications Medications Current Medications Docusate Sodium (Colace) 100 mg BID PO Last administered on 07/20/16 08:40; Admin Dose 100 MG; Start 07/13/16 at 09:00 Senna (Senokot) 1 tab HS PO Last administered on 07/19/16 20:39; Admin Dose 1 TAB; Start 07/13/16 at 21:00 Atorvastatin Calcium (Lipitor) 80 mg DAILY@21 PO Last administered on 20:39; Admin Dose 80 MG; Start 07/12/16 at 23:15 Miscellaneous Information 1 ea NOTE XX ; Start 07/12/16 at 23:30 Glucose (Glutose) 15 gm Q15M PRN PO DECREASED GLUCOSE; Start 07/12/16 at 23:30 Glucose (Glutose) 22.5 gm Q15M PRN PO DECREASED GLUCOSE; Start 07/12/16 at 23:30 Dextrose (D50w Syringe) 25 ml Q15M PRN IV DECREASED GLUCOSE; Start 07/12/16 at 23:30 Dextrose (D50w Syringe) 50 ml Q15M PRN IV DECREASED GLUCOSE; Start 07/12/16 at 23:30 Glucagon (Glucagen) 1 mg Q15M PRN IM DECREASED GLUCOSE; Start 07/12/16 at 23:30 Glucose (Glutose) 15 gm Q15M PRN BUCCAL DECREASED GLUCOSE; Start 07/12/16 at 23: 30 Diagnostic Test (Pha) (Accu-Chek) 1 ea 02 XX ; Start 07/13/16 at 02:00 Bisacodyl (Dulcolax Supp) 10 mg DAILY PRN [place] CONSTIPATION; Start 07/12/16 at 23: 30 Escitalopram Oxalate (Lexapro) 10 mg DAILY PO Last administered on 07/20/16 08 :40; Admin Dose 10 MG; Start 07/13/16 at 09:00 Ferrous Sulfate (Ferrous Sulfate (Ec)) 325 mg DAILY PO Last administered on 08:40; Admin Dose 325 MG; Start 07/13/16 at 09:00 Gabapentin (Neurontin) 100 mg DAILY PO Last administered on 07/20/16 08:40; Admin Dose 100 MG; Start 07/13/16 at 09:00 Acetaminophen/ Hydrocodone Bitart ([place] (5/325)) 1 tab Q4H PRN PO PAIN Last administered on 07/20/16 09:59; Admin Dose 1 TAB; Start 07/12/16 at 23:30 Acetaminophen/ Hydrocodone Bitart ([place] (5/325)) 2 tab Q4H PRN PO PAIN; Start 07/12/16 at 23:30 Metoprolol Succinate (Toprol Xl) 25 mg DAILY PO Last administered on 07/20/16 08:41; Admin Dose 25 MG; Start 07/13/16 at 09:00 Morphine Sulfate (morphine) 2 mg Q4H PRN IV PAIN; Start 07/12/16 at 23:30 Multivit/Ca Carb/ B Cmplx/FA/Prenat (Billie-Roge) 1 tab DAILY PO Last administered on 07/20/16 08:40; Admin Dose 1 TAB; Start 07/13/16 at 09:00 Ondansetron HCl (Zofran Inj) 4 mg Q6H PRN IV NAUSEA AND/OR VOMITING; Start 07/12 at 23:30 Polyethylene Glycol (Miralax) 17 gm DAILY PO Last administered on 07/20/16 08: 40; Admin Dose 17 GM; Start 07/13/16 at 09:00 Sodium Biphosphate/ Sodium Phosphate (Fleet Enema) 133 ml DAILY PRN [place] CONSTIPATION; Start 07/12/16 at 23:30 Hydralazine HCl (Apresoline) 25 mg TID PO Last administered on 07/20/16 08:40 ; Admin Dose 25 MG; Start 07/13/16 at 21:00 Heparin Sodium (Porcine) (Heparin (5000 Units/0.5 ml)) 5,000 unit BID SC Last administered on 07/20/16 08:51; Admin Dose 5,000 UNIT; Start 07/16/16 at 09:00 Pantoprazole (Protonix Tab) 40 mg BID@ PO Last administered on 07/20/16 17:15; Admin Dose 40 MG; Start 07/16/16 at 18:00 Acyclovir (Zovirax) 200 mg BID PO Last administered on 07/20/16 08:41; Admin Dose 200 MG; Start 07/16/16 at 14:30 YI RODRIGUEZ July 20, 2016 18:23
[2016-07-20 19:50] VITALS: BP 126/58; RESP 18
[2016-07-20] MEDS: ATORVASTATIN 80 MG TAB PO SCH (20:39)
[2016-07-20] MEDS: SENNA TAB PO SCH (20:39)
[2016-07-20] MEDS: ONDANSETRON 4 MG INJ IV PRN (20:58)
[2016-07-21] VITALS (11 sets, daily range): BP systolic 92–144; BP diastolic 51–78; PULSE 75–79; RESP 18
[2016-07-21] MEDS: ACCUCHECK AT 2AM (Patients on SS coverage) XX SCH (03:35)
[2016-07-21] MEDS: PANTOPRAZOLE (EC) 40 MG TAB PO SCH ×2 (06:36→17:16)
[2016-07-21] MEDS: LEVOTHYROXINE 88 MCG TAB PO SCH (06:36)
[2016-07-21 06:58] LABS: ADD SCAN DIFF NO
[2016-07-21 07:07] LABS: BASOPHILS % 0.4 % (0.0-2.0); EOSINOPHILS % 0.5 % (0.0-7.0); HEMATOCRIT 34.6 % (37.0-47.0); HEMOGLOBIN 10.8 g/dl (12.0-16.0); LYMPHOCYTES # 1.1 10^3/ul (0.8-2.9); LYMPHOCYTES % 14.2 % (15.0-51.0); MEAN CORPUSCULAR HEMOGLOBIN 29.6 pg (29.0-33.0); MEAN CORPUSCULAR HGB CONC 31.2 g/dl (32.0-37.0); MEAN CORPUSCULAR VOLUME 94.8 fl (82.0-101.0); MEAN PLATELET VOLUME 9.7 fl (7.4-10.4); MONOCYTE # 0.6 10^3/ul (0.3-0.9); MONOCYTES % 7.4 % (0.0-11.0); NEUTROPHIL # 5.9 10^3/ul (1.6-7.5); NEUTROPHILS % 77.1 % (39.0-77.0); NUCLEATED RED BLOOD CELLS # 0.1 10^3/ul (0.0-0.0); NUCLEATED RED BLOOD CELLS% 0.7 /100WBC (0.0-0.0); PLATELET COUNT 157 10^3/UL (140-415); RED BLOOD COUNT 3.65 10^6/ul (4.20-5.40); RED CELL DISTRIBUTION WIDTH 15.4 % (11.5-14.5); WHITE BLOOD COUNT 7.6 10^3/ul (4.8-10.8)
[2016-07-21] MEDS: REPAGLINIDE 1 MG TAB PO SCH ×3 (07:30→17:16)
[2016-07-21] MEDS: Insulin NOVOLOG SS MILD Algorithm (SS with meals and bedtime) SC SCH ×4 (07:35→20:56)
[2016-07-21] MEDS: HEPARIN 5,000 UNIT/0.5 ML VIAL SC SCH ×2 (08:41→20:55)
[2016-07-21] MEDS: SEVELAMER CARBONATE 0.8 GM PKT PO SCH ×3 (08:42→17:16)
[2016-07-21] MEDS: POLYETHYLENE GLYCOL 17 GM PACKET PO SCH (08:43)
[2016-07-21] MEDS: MULTIVIT/CA CARB/B CMPLX/FA TAB PO SCH (08:44)
[2016-07-21] MEDS: GABAPENTIN 100 MG CAP PO SCH (08:44)
[2016-07-21] MEDS: METOPROLOL (XL) 25 MG TAB PO SCH (08:44)
[2016-07-21] MEDS: ESCITALOPRAM 10 MG TAB PO SCH (08:44)
[2016-07-21] MEDS: DOCUSATE SODIUM 100 MG CAP PO SCH ×2 (08:44→20:34)
[2016-07-21] MEDS: ACYCLOVIR 200 MG CAP PO SCH ×2 (08:45→20:33)
[2016-07-21] MEDS: FERROUS SULFATE (EC) 325 MG TAB PO SCH (08:45)
[2016-07-21 10:03] LABS: CALCIUM 8.1 mg/dl (8.4-10.2); CREATININE 3.77 mg/dl (0.44-1.00); MAGNESIUM 2.5 mg/dl (1.7-2.5)
--- NOTE | 2016-07-21 10:03 | PN ---
DATE: 07/21/2016 PHYSICAL EXAMINATION: VITAL SIGNS: Blood pressure 132/60, respiration 18, pulse 70, temperature 98.0. HEENT: Head is normocephalic. NECK: Supple. HEART: Regular rate. LUNGS: Show diminished breath sounds at the base. ABDOMEN: Soft, nontender to palpation. No rebound or guarding. EXTREMITIES: Negative for clubbing, cyanosis. No edema. DERMATOLOGIC: No rashes. MUSCULOSKELETAL: No joint effusions. NEUROLOGIC: No change in exam. MEDICATIONS: The patient's medications have been reviewed. LABORATORY DATA: Has been reviewed. No new labs. ASSESSMENT AND PLAN: 1. Right hip fracture status post open reduction internal fixation. The patient is currently stabl e. Continue PT, OT. 2. End-stage renal disease. Plan for dialysis today for 3 hours, 2K bath, calcium 2.5. 3. Herpes simplex. The patient's serologies are positive. Continue acyclovir. 4. Hypertension. Continue current blood pressure regimen. 5. Diabetes. Continue Accu-Cheks and insulin sliding scale. 6. Chronic pain syndrome. Continue current pain regimen. 7. Mineral bone disorder. Continue to monitor calcium and phosphorus levels. 8. Hypothyroidism. Continue Synthroid. 9. Cardiomyopathy. Continue current medical management. 10. Peripheral vascular disease, status post fem-pop. 11. Gastrointestinal and deep venous thrombosis prophylaxis. Continue PPI and heparin. Dictated By: BRANDI CHANEY/ANA Conf#: [id number] DID#: [id number]
[2016-07-21 10:20] LABS: POTASSIUM 5.7 mmol/L (3.5-5.1)
[2016-07-21] MEDS: ONDANSETRON 4 MG INJ IV PRN (11:25)
--- NOTE | 2016-07-21 12:34 | CONS ---
Date/Time of Note Date/Time of Note DATE: 07/21/16 TIME: 12:33 Consult Date/Type/Reason Admit Date/Time July 12, 2016 at 21:05 Type of Consultation: Cardiology Ordering Provider: BRANDI ERICKSON DO Subjective comfortable Objective pulm-cta abd-soft min ambulation Vital Signs Date Time Temp Pulse Resp B/P Pulse Ox O2 Delivery O2 Flow Rate FiO2 07/21/16 07:59 98.0 70 18 132/60 97 Intake and Output 07/20/16 07/20/16 07/21/16 15:00 23:00 07:00 Intake Total 1140 ml Balance 1140 ml Results/Medications Result Diagram: 07/21/16 0615 07/21/16 0826 Results 24 hrs Laboratory Tests Test 07/20/16 17:13 07/20/16 20:38 07/21/16 06:15 07/21/16 07:51 Bedside Glucose 186 195 101 White Blood Count 7.6 # Red Blood Count 3.65 L Hemoglobin 10.8 L Hematocrit 34.6 L Mean Corpuscular Volume 94.8 Mean Corpuscular Hemoglobin 29.6 Mean Corpuscular Hemoglobin Concent 31.2 L Red Cell Distribution Width 15.4 H Platelet Count 157 Mean Platelet Volume 9.7 Neutrophils % 77.1 H Lymphocytes % 14.2 L Monocytes % 7.4 Eosinophils % 0.5 Basophils % 0.4 Nucleated Red Blood Cells % 0.7 H Neutrophils # 5.9 Lymphocytes # 1.1 Monocytes # 0.6 Eosinophils # 0.0 Basophils # 0.0 Nucleated Red Blood Cells # 0.1 H Test 07/21/16 08:26 07/21/16 09:03 07/21/16 12:05 Sodium Level 124 L Potassium Level 5.7 H Chloride Level 94 L Carbon Dioxide Level 22 Anion Gap 14 Blood Urea Nitrogen 52 H Creatinine 3.77 H Glucose Level 100 Calcium Level 8.1 L Phosphorus Level 6.0 H Magnesium Level 2.5 Lab Scanned Report REFERENCE LAB Bedside Glucose 110 Medications Current Medications Docusate Sodium (Colace) 100 mg BID PO Last administered on 07/21/16 08:44; Admin Dose 100 MG; Start 07/13/16 at 09:00 Senna (Senokot) 1 tab HS PO Last administered on 07/20/16 20:39; Admin Dose 1 TAB; Start 07/13/16 at 21:00 Atorvastatin Calcium (Lipitor) 80 mg DAILY@21 PO Last administered on 20:39; Admin Dose 80 MG; Start 07/12/16 at 23:15 Miscellaneous Information 1 ea NOTE XX ; Start 07/12/16 at 23:30 Glucose (Glutose) 15 gm Q15M PRN PO DECREASED GLUCOSE; Start 07/12/16 at 23:30 Glucose (Glutose) 22.5 gm Q15M PRN PO DECREASED GLUCOSE; Start 07/12/16 at 23:30 Dextrose (D50w Syringe) 25 ml Q15M PRN IV DECREASED GLUCOSE; Start 07/12/16 at 23:30 Dextrose (D50w Syringe) 50 ml Q15M PRN IV DECREASED GLUCOSE; Start 07/12/16 at 23:30 Glucagon (Glucagen) 1 mg Q15M PRN IM DECREASED GLUCOSE; Start 07/12/16 at 23:30 Glucose (Glutose) 15 gm Q15M PRN BUCCAL DECREASED GLUCOSE; Start 07/12/16 at 23: 30 Diagnostic Test (Pha) (Accu-Chek) 1 ea 02 XX ; Start 07/13/16 at 02:00 Bisacodyl (Dulcolax Supp) 10 mg DAILY PRN [place] CONSTIPATION; Start 07/12/16 at 23: 30 Escitalopram Oxalate (Lexapro) 10 mg DAILY PO Last administered on 07/21/16 08 :44; Admin Dose 10 MG; Start 07/13/16 at 09:00 Ferrous Sulfate (Ferrous Sulfate (Ec)) 325 mg DAILY PO Last administered on 08:45; Admin Dose 325 MG; Start 07/13/16 at 09:00 Gabapentin (Neurontin) 100 mg DAILY PO Last administered on 07/21/16 08:44; Admin Dose 100 MG; Start 07/13/16 at 09:00 Acetaminophen/ Hydrocodone Bitart ([place] (5/325)) 1 tab Q4H PRN PO PAIN Last administered on 07/20/16 09:59; Admin Dose 1 TAB; Start 07/12/16 at 23:30 Acetaminophen/ Hydrocodone Bitart ([place] (5/325)) 2 tab Q4H PRN PO PAIN; Start 07/12/16 at 23:30 Metoprolol Succinate (Toprol Xl) 25 mg DAILY PO Last administered on 07/21/16 08:44; Admin Dose 25 MG; Start 07/13/16 at 09:00 Morphine Sulfate (morphine) 2 mg Q4H PRN IV PAIN; Start 07/12/16 at 23:30 Multivit/Ca Carb/ B Cmplx/FA/Prenat ([place]ie-Roge) 1 tab DAILY PO Last administered on 07/21/16 08:44; Admin Dose 1 TAB; Start 07/13/16 at 09:00 Ondansetron HCl (Zofran Inj) 4 mg Q6H PRN IV NAUSEA AND/OR VOMITING Last administered on 07/21/16 11:25; Admin Dose 4 MG; Start 07/12/16 at 23:30 Polyethylene Glycol (Miralax) 17 gm DAILY PO Last administered on 07/21/16 08: 43; Admin Dose 17 GM; Start 07/13/16 at 09:00 Sodium Biphosphate/ Sodium Phosphate (Fleet Enema) 133 ml DAILY PRN [place] CONSTIPATION; Start 07/12/16 at 23:30 Heparin Sodium (Porcine) (Heparin (5000 Units/0.5 ml)) 5,000 unit BID SC Last administered on 07/21/16 08:41; Admin Dose 5,000 UNIT; Start 07/16/16 at 09:00 Pantoprazole (Protonix Tab) 40 mg BID@06,18 PO Last administered on 07/21/16 06:36; Admin Dose 40 MG; Start 07/16/16 at 18:00 Acyclovir (Zovirax) 200 mg BID PO Last administered on 07/21/16 08:45; Admin Dose 200 MG; Start 07/16/16 at 14:30 Hydralazine HCl (Apresoline) 10 mg TID PO Last administered on 07/21/16 08:43 ; Admin Dose 10 MG; Start 07/20/16 at 21:00 Assessment/Plan Additional Assessment/Plan Rehab- Right hip femoral neck fracture status post hemiarthroplasty. Continue rehab program End-stage renal disease, on hemodialysis-f/b renal. Peripheral vascular disease with history of bypass. Diabetes mellitus type 2. Hypertension. History of coronary artery disease and CABG. History of cardiomyopathy. Cervical degenerative disk disease. Hyponatremia. Hypothyroidism. Ischial deep tissue injury in addition to bilateral heel decubitus ulcers- pressure relief GRITTON,LIVA L. MD July 21, 2016 12:34
--- NOTE | 2016-07-21 14:30 | CONS ---
Date/Time of Note Date/Time of Note DATE: 07/21/16 TIME: 14:28 Assessment/Plan Assessment/Plan Chief Complaint/Hosp Course IMPRESSION: 1. Preoperative evaluation prior to open reduction internal fixation of the right hip.-negative troponin x 3. Now Post-op s/p Hip ORIF 2. History of cardiomyopathy with decreased left ventricular ejection fraction , last known to be approximately 35% by echo February 2016 with a negative stress February 2016, revealing scar but no ischemia. Echo this admit EF 30-35% 3. History of permanent pacemaker implantation for bradyarrhythmias. 4. History of coronary artery disease, status post coronary bypass graft surgery. 5. Peripheral arterial disease status post relatively recent lower extremity bypass surgery. 6. End-stage renal disease on hemodialysis. 7. Diabetes mellitus. 8. Thyroid dysfunction. 9. Cardiomyopathy with decreased left ventricular ejection fraction. 10. Status post fall. 11. Hip fracture. 12. Arm swelling-Negative venous BLAYNE for DVT 07/07 14. Hyponatremia 15.HTN-well controlled Recc: -Tele -serial ecg's -Continue toprol/hydralazine as tolerated and follow BP closely -PT -HD for volume removal Problems: Consultation Date/Type/Reason Admit Date/Time July 12, 2016 at 21:05 Initial Consult Date 07/12/2016 Type of Consultation: Cardiology Reason for Consultation cardiomyopathy/CHF Referring Provider: BRANDI ERICKSON DO Exam/Review of Systems Vital Signs Vitals Vital Signs Date Time Temp Pulse Resp B/P Pulse Ox O2 Delivery O2 Flow Rate FiO2 07/21/16 07:59 98.0 70 18 132/60 97 Intake and Output 07/20/16 07/20/16 07/21/16 15:00 23:00 07:00 Intake Total 1140 ml Balance 1140 ml Exam Review of Systems: CONSTITUTIONAL: No fevers, chills. PULMONARY: No sob CARDIOVASCULAR: No chest pain/palpitations GASTROINTESTINAL: No nausea/vomiting. GENITOURINARY: No hematuria/dysuria. MUSCULOSKELETAL: No myagias/arthalgias. PSYCHIATRIC: The patient denies depression. NEUROLOGIC: No weakness Constitutional: alert Psych: no complaints Head: normocephalic ENMT: mucosa pink and moist Neck: jvd (9 cm water), supple Respiratory: diminished breath sounds (at bases/B) Cardiovascular: regular rate and rhythm Gastrointestinal: non-tender, soft Musculoskeletal: muscle tone (normal) Extremities: edema (none) Neurological: other (No focal deficits) Results Result Diagram: 07/21/16 0615 07/21/16 0826 Results 24 hrs Laboratory Tests Test 07/20/16 17:13 07/20/16 20:38 07/21/16 06:15 07/21/16 07:51 Bedside Glucose 186 195 101 White Blood Count 7.6 # Red Blood Count 3.65 L Hemoglobin 10.8 L Hematocrit 34.6 L Mean Corpuscular Volume 94.8 Mean Corpuscular Hemoglobin 29.6 Mean Corpuscular Hemoglobin Concent 31.2 L Red Cell Distribution Width 15.4 H Platelet Count 157 Mean Platelet Volume 9.7 Neutrophils % 77.1 H Lymphocytes % 14.2 L Monocytes % 7.4 Eosinophils % 0.5 Basophils % 0.4 Nucleated Red Blood Cells % 0.7 H Neutrophils # 5.9 Lymphocytes # 1.1 Monocytes # 0.6 Eosinophils # 0.0 Basophils # 0.0 Nucleated Red Blood Cells # 0.1 H Test 07/21/16 08:26 07/21/16 09:03 07/21/16 12:05 07/21/16 12:48 Sodium Level 124 L Potassium Level 5.7 H Chloride Level 94 L Carbon Dioxide Level 22 Anion Gap 14 Blood Urea Nitrogen 52 H Creatinine 3.77 H Glucose Level 100 Calcium Level 8.1 L Phosphorus Level 6.0 H Magnesium Level 2.5 Lab Scanned Report REFERENCE LAB REFERENCE LAB Bedside Glucose 110 Medications Medications Current Medications Docusate Sodium (Colace) 100 mg BID PO Last administered on 07/21/16 08:44; Admin Dose 100 MG; Start 07/13/16 at 09:00 Senna (Senokot) 1 tab HS PO Last administered on 07/20/16 20:39; Admin Dose 1 TAB; Start 07/13/16 at 21:00 Atorvastatin Calcium (Lipitor) 80 mg DAILY@21 PO Last administered on 20:39; Admin Dose 80 MG; Start 07/12/16 at 23:15 Miscellaneous Information 1 ea NOTE XX ; Start 07/12/16 at 23:30 Glucose (Glutose) 15 gm Q15M PRN PO DECREASED GLUCOSE; Start 07/12/16 at 23:30 Glucose (Glutose) 22.5 gm Q15M PRN PO DECREASED GLUCOSE; Start 07/12/16 at 23:30 Dextrose (D50w Syringe) 25 ml Q15M PRN IV DECREASED GLUCOSE; Start 07/12/16 at 23:30 Dextrose (D50w Syringe) 50 ml Q15M PRN IV DECREASED GLUCOSE; Start 07/12/16 at 23:30 Glucagon (Glucagen) 1 mg Q15M PRN IM DECREASED GLUCOSE; Start 07/12/16 at 23:30 Glucose (Glutose) 15 gm Q15M PRN BUCCAL DECREASED GLUCOSE; Start 07/12/16 at 23: 30 Diagnostic Test (Pha) (Accu-Chek) 1 ea 02 XX ; Start 07/13/16 at 02:00 Bisacodyl (Dulcolax Supp) 10 mg DAILY PRN [place] CONSTIPATION; Start 07/12/16 at 23: 30 Escitalopram Oxalate (Lexapro) 10 mg DAILY PO Last administered on 07/21/16 08 :44; Admin Dose 10 MG; Start 07/13/16 at 09:00 Ferrous Sulfate (Ferrous Sulfate (Ec)) 325 mg DAILY PO Last administered on 08:45; Admin Dose 325 MG; Start 07/13/16 at 09:00 Gabapentin (Neurontin) 100 mg DAILY PO Last administered on 07/21/16 08:44; Admin Dose 100 MG; Start 07/13/16 at 09:00 Acetaminophen/ Hydrocodone Bitart ([place] (5/325)) 1 tab Q4H PRN PO PAIN Last administered on 07/20/16 09:59; Admin Dose 1 TAB; Start 07/12/16 at 23:30 Acetaminophen/ Hydrocodone Bitart ([place] (5/325)) 2 tab Q4H PRN PO PAIN; Start 07/12/16 at 23:30 Metoprolol Succinate (Toprol Xl) 25 mg DAILY PO Last administered on 07/21/16 08:44; Admin Dose 25 MG; Start 07/13/16 at 09:00 Morphine Sulfate (morphine) 2 mg Q4H PRN IV PAIN; Start 07/12/16 at 23:30 Multivit/Ca Carb/ B Cmplx/FA/Prenat ([place]ie-Roge) 1 tab DAILY PO Last administered on 07/21/16 08:44; Admin Dose 1 TAB; Start 07/13/16 at 09:00 Ondansetron HCl (Zofran Inj) 4 mg Q6H PRN IV NAUSEA AND/OR VOMITING Last administered on 07/21/16 11:25; Admin Dose 4 MG; Start 07/12/16 at 23:30 Polyethylene Glycol (Miralax) 17 gm DAILY PO Last administered on 07/21/16 08: 43; Admin Dose 17 GM; Start 07/13/16 at 09:00 Sodium Biphosphate/ Sodium Phosphate (Fleet Enema) 133 ml DAILY PRN [place] CONSTIPATION; Start 07/12/16 at 23:30 Heparin Sodium (Porcine) (Heparin (5000 Units/0.5 ml)) 5,000 unit BID SC Last administered on 07/21/16 08:41; Admin Dose 5,000 UNIT; Start 07/16/16 at 09:00 Pantoprazole (Protonix Tab) 40 mg BID@06,18 PO Last administered on 07/21/16 06:36; Admin Dose 40 MG; Start 07/16/16 at 18:00 Acyclovir (Zovirax) 200 mg BID PO Last administered on 07/21/16 08:45; Admin Dose 200 MG; Start 07/16/16 at 14:30 Hydralazine HCl (Apresoline) 10 mg TID PO Last administered on 07/21/16 08:43 ; Admin Dose 10 MG; Start 07/20/16 at 21:00 YI RODRIGUEZ July 21, 2016 14:30
[2016-07-21] MEDS: EPOETIN 10000 UNITS/1 ML INJ (ESRD) SC SCH (16:33)
[2016-07-21] MEDS: SENNA TAB PO SCH (20:34)
[2016-07-21] MEDS: ATORVASTATIN 80 MG TAB PO SCH (20:40)
--- NOTE | 2016-07-21 22:35 | CONS ---
Date/Time of Note Date/Time of Note DATE: 07/21/16 TIME: 22:34 Assessment/Plan Assessment/Plan Chief Complaint/Hosp Course ANEMIA- COMPLEX, MULTIFACTORIAL MONITOR CLOSELY OBSERVE FOR BLEEDING AND HEMOLYSIS TRANSFUSE TO KEEP HB ABOVE 8 Right hip fracture status post open reduction internal fixation. The patient is currently stable. Continue PT, OT. End-stage renal disease. 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 The patient has been seen by Dr. [place]. Started on acyclovir. Cultures have been sent. Will monitor. Hypertension. Continue current blood pressure regimen. Diabetes. Continue current insulin regimen. Cardiomyopathy, stable. Continue current medical management. Chronic pain syndrome. Continue current pain regimen. Hypothyroidism. Continue Synthroid. History of peripheral vascular disease. GI and deep vein thrombosis prophylaxis. Continue PPI and Lovenox. Problems: Consultation Date/Type/Reason Admit Date/Time July 12, 2016 at 21:05 Type of Consultation: [facility] Referring Provider: BRANDI ERICKSON DO 24 HR Interval Summary Free Text/Dictation ALL NOTED NO NEW EVENTS Exam/Review of Systems Vital Signs Vitals Vital Signs Date Time Temp Pulse Resp B/P Pulse Ox O2 Delivery O2 Flow Rate FiO2 07/21/16 20:23 98.4 74 18 144/62 94 Intake and Output 07/20/16 07/20/16 07/21/16 15:00 23:00 07:00 Intake Total 1140 ml Balance 1140 ml Exam HEENT: Head is normocephalic. NECK: Supple. HEART: Regular rate. LUNGS: Show diminished breath sounds at the base. ABDOMEN: Soft, nontender to palpation. No rebound or guarding. EXTREMITIES: Negative for clubbing, cyanosis. No edema. DERMATOLOGIC: No rashes. MUSCULOSKELETAL: No joint effusions. NEUROLOGIC: No change in exam. Results Result Diagram: 07/21/16 0615 07/21/16 0826 Results 24 hrs Laboratory Tests Test 07/21/16 06:15 07/21/16 07:51 07/21/16 08:26 07/21/16 09:03 White Blood Count 7.6 # Red Blood Count 3.65 L Hemoglobin 10.8 L Hematocrit 34.6 L Mean Corpuscular Volume 94.8 Mean Corpuscular Hemoglobin 29.6 Mean Corpuscular Hemoglobin Concent 31.2 L Red Cell Distribution Width 15.4 H Platelet Count 157 Mean Platelet Volume 9.7 Neutrophils % 77.1 H Lymphocytes % 14.2 L Monocytes % 7.4 Eosinophils % 0.5 Basophils % 0.4 Nucleated Red Blood Cells % 0.7 H Neutrophils # 5.9 Lymphocytes # 1.1 Monocytes # 0.6 Eosinophils # 0.0 Basophils # 0.0 Nucleated Red Blood Cells # 0.1 H Bedside Glucose 101 Sodium Level 124 L Potassium Level 5.7 H Chloride Level 94 L Carbon Dioxide Level 22 Anion Gap 14 Blood Urea Nitrogen 52 H Creatinine 3.77 H Glucose Level 100 Calcium Level 8.1 L Phosphorus Level 6.0 H Magnesium Level 2.5 Lab Scanned Report REFERENCE LAB Test 07/21/16 12:05 07/21/16 12:48 07/21/16 17:00 07/21/16 20:32 Bedside Glucose 110 154 138 Lab Scanned Report REFERENCE LAB Medications Medications Current Medications Docusate Sodium (Colace) 100 mg BID PO Last administered on 07/21/16 20:34; Admin Dose 100 MG; Start 07/13/16 at 09:00 Senna (Senokot) 1 tab HS PO Last administered on 07/21/16 20:34; Admin Dose 1 TAB; Start 07/13/16 at 21:00 Atorvastatin Calcium (Lipitor) 80 mg DAILY@21 PO Last administered on 20:39; Admin Dose 80 MG; Start 07/12/16 at 23:15 Miscellaneous Information 1 ea NOTE XX ; Start 07/12/16 at 23:30 Glucose (Glutose) 15 gm Q15M PRN PO DECREASED GLUCOSE; Start 07/12/16 at 23:30 Glucose (Glutose) 22.5 gm Q15M PRN PO DECREASED GLUCOSE; Start 07/12/16 at 23:30 Dextrose (D50w Syringe) 25 ml Q15M PRN IV DECREASED GLUCOSE; Start 07/12/16 at 23:30 Dextrose (D50w Syringe) 50 ml Q15M PRN IV DECREASED GLUCOSE; Start 07/12/16 at 23:30 Glucagon (Glucagen) 1 mg Q15M PRN IM DECREASED GLUCOSE; Start 07/12/16 at 23:30 Glucose (Glutose) 15 gm Q15M PRN BUCCAL DECREASED GLUCOSE; Start 07/12/16 at 23: 30 Diagnostic Test (Pha) (Accu-Chek) 1 ea 02 XX ; Start 07/13/16 at 02:00 Bisacodyl (Dulcolax Supp) 10 mg DAILY PRN [place] CONSTIPATION; Start 07/12/16 at 23: 30 Escitalopram Oxalate (Lexapro) 10 mg DAILY PO Last administered on 07/21/16 08 :44; Admin Dose 10 MG; Start 07/13/16 at 09:00 Ferrous Sulfate (Ferrous Sulfate (Ec)) 325 mg DAILY PO Last administered on 08:45; Admin Dose 325 MG; Start 07/13/16 at 09:00 Gabapentin (Neurontin) 100 mg DAILY PO Last administered on 07/21/16 08:44; Admin Dose 100 MG; Start 07/13/16 at 09:00 Acetaminophen/ Hydrocodone Bitart ([place] (5/325)) 1 tab Q4H PRN PO PAIN Last administered on 07/20/16 09:59; Admin Dose 1 TAB; Start 07/12/16 at 23:30 Acetaminophen/ Hydrocodone Bitart ([place] (5/325)) 2 tab Q4H PRN PO PAIN; Start 07/12/16 at 23:30 Metoprolol Succinate (Toprol Xl) 25 mg DAILY PO Last administered on 07/21/16 08:44; Admin Dose 25 MG; Start 07/13/16 at 09:00 Morphine Sulfate (morphine) 2 mg Q4H PRN IV PAIN; Start 07/12/16 at 23:30 Multivit/Ca Carb/ B Cmplx/FA/Prenat ([place]) 1 tab DAILY PO Last administered on 07/21/16 08:44; Admin Dose 1 TAB; Start 07/13/16 at 09:00 Ondansetron HCl (Zofran Inj) 4 mg Q6H PRN IV NAUSEA AND/OR VOMITING Last administered on 07/21/16 11:25; Admin Dose 4 MG; Start 07/12/16 at 23:30 Polyethylene Glycol (Miralax) 17 gm DAILY PO Last administered on 07/21/16 08: 43; Admin Dose 17 GM; Start 07/13/16 at 09:00 Sodium Biphosphate/ Sodium Phosphate (Fleet Enema) 133 ml DAILY PRN [place] CONSTIPATION; Start 07/12/16 at 23:30 Heparin Sodium (Porcine) (Heparin (5000 Units/0.5 ml)) 5,000 unit BID SC Last administered on 07/21/16 20:55; Admin Dose 5,000 UNIT; Start 07/16/16 at 09:00 Pantoprazole (Protonix Tab) 40 mg BID@,18 PO Last administered on 07/21/16 06:36; Admin Dose 40 MG; Start 07/16/16 at 18:00 Acyclovir (Zovirax) 200 mg BID PO Last administered on 07/21/16 20:33; Admin Dose 200 MG; Start 07/16/16 at 14:30 Hydralazine HCl (Apresoline) 10 mg TID PO Last administered on 07/21/16 08:43 ; Admin Dose 10 MG; Start 07/20/16 at 21:00 FABY HORN MD July 21, 2016 22:35
[2016-07-22] MEDS: ACCUCHECK AT 2AM (Patients on SS coverage) XX SCH (02:00)
[2016-07-22] MEDS: PANTOPRAZOLE (EC) 40 MG TAB PO SCH ×2 (06:19→18:00)
[2016-07-22] MEDS: LEVOTHYROXINE 88 MCG TAB PO SCH (06:19)
[2016-07-22] MEDS: Insulin NOVOLOG SS MILD Algorithm (SS with meals and bedtime) SC SCH ×4 (07:35→20:28)
[2016-07-22] MEDS: GABAPENTIN 100 MG CAP PO SCH (08:39)
[2016-07-22] MEDS: ACYCLOVIR 200 MG CAP PO SCH ×2 (08:39→20:19)
[2016-07-22] MEDS: HEPARIN 5,000 UNIT/0.5 ML VIAL SC SCH ×2 (08:39→20:21)
[2016-07-22] MEDS: MULTIVIT/CA CARB/B CMPLX/FA TAB PO SCH (08:39)
[2016-07-22] MEDS: DOCUSATE SODIUM 100 MG CAP PO SCH ×2 (08:40→20:19)
[2016-07-22] MEDS: REPAGLINIDE 1 MG TAB PO SCH ×3 (08:40→18:04)
[2016-07-22] MEDS: ESCITALOPRAM 10 MG TAB PO SCH (08:40)
[2016-07-22] MEDS: FERROUS SULFATE (EC) 325 MG TAB PO SCH (08:40)
[2016-07-22] MEDS: SEVELAMER CARBONATE 0.8 GM PKT PO SCH ×3 (08:40→18:04)
[2016-07-22] MEDS: POLYETHYLENE GLYCOL 17 GM PACKET PO SCH (08:40)
[2016-07-22] MEDS: METOPROLOL (XL) 25 MG TAB PO SCH (08:41)
--- NOTE | 2016-07-22 10:22 | CONS ---
Date/Time of Note Date/Time of Note DATE: 07/22/16 TIME: 10:19 Consult Date/Type/Reason Admit Date/Time July 12, 2016 at 21:05 Initial Consult Date Type of Consultation: im Ordering Provider: BRANDI ERICKSON DO Subjective 75-year-old female with a past medical history of end-stage renal disease on dialysis Sunday and Sunday, access Perm-A-Cath, history of peripheral vascular disease status post right lower extremity bypass, history of cardiomyopathy, coronary artery disease status post CABG, history of arrhythmia, diabetes who presented to [facility] after suffering a mechanical fall. The patient was diagnosed with right hip arthroplasty. She was admitted to the med/surg. She was seen by the orthopedist Dr. Maria and had an ORIF of her right hip. The patient postoperatively was stable; however, she had a significant decline in her premorbid state and as a result, she was transferred over to [facility] acute rehab for continued care. Had hd yesterday without complication. tolerates meds and therapies. HEENT: Head is normocephalic. NECK: Supple. HEART: Regular rate. LUNGS: Show diminished breath sounds at the base. ABDOMEN: Soft, nontender to palpation. No rebound or guarding. EXTREMITIES: Negative for clubbing, cyanosis. No edema. DERMATOLOGIC: No rashes. MUSCULOSKELETAL: No joint effusions. NEUROLOGIC: No change in exam. Objective Vital Signs Date Time Temp Pulse Resp B/P Pulse Ox O2 Delivery O2 Flow Rate FiO2 07/21/16 20:23 98.4 74 18 144/62 94 Intake and Output 07/21/16 07/21/16 07/22/16 15:00 23:00 07:00 Intake Total 720 ml 760 ml Output Total 180 ml 2300 ml Balance 540 ml -1540 ml Results/Medications Result Diagram: 07/21/16 0615 07/21/16 0826 Results 24 hrs Laboratory Tests Test 07/21/16 12:05 07/21/16 12:48 07/21/16 17:00 07/21/16 20:32 Bedside Glucose 110 154 138 Lab Scanned Report REFERENCE LAB Test 07/22/16 07:39 Bedside Glucose 128 Medications Current Medications Docusate Sodium (Colace) 100 mg BID PO Last administered on 07/22/16t 08:40; Admin Dose 100 MG; Start 07/13/16 at 09:00 Senna (Senokot) 1 tab HS PO Last administered on 07/21/16 20:34; Admin Dose 1 TAB; Start 07/13/16 at 21:00 Atorvastatin Calcium (Lipitor) 80 mg DAILY@21 PO Last administered on 20:39; Admin Dose 80 MG; Start 07/12/16 at 23:15 Miscellaneous Information 1 ea NOTE XX ; Start 07/12/16 at 23:30 Glucose (Glutose) 15 gm Q15M PRN PO DECREASED GLUCOSE; Start 07/12/16 at 23:30 Glucose (Glutose) 22.5 gm Q15M PRN PO DECREASED GLUCOSE; Start 07/12/16 at 23:30 Dextrose (D50w Syringe) 25 ml Q15M PRN IV DECREASED GLUCOSE; Start 07/12/16 at 23:30 Dextrose (D50w Syringe) 50 ml Q15M PRN IV DECREASED GLUCOSE; Start 07/12/16 at 23:30 Glucagon (Glucagen) 1 mg Q15M PRN IM DECREASED GLUCOSE; Start 07/12/16 at 23:30 Glucose (Glutose) 15 gm Q15M PRN BUCCAL DECREASED GLUCOSE; Start 07/12/16 at 23: 30 Diagnostic Test (Pha) (Accu-Chek) 1 ea 02 XX ; Start 07/13/16 at 02:00 Bisacodyl (Dulcolax Supp) 10 mg DAILY PRN [place] CONSTIPATION; Start 07/12/16 at 23: 30 Escitalopram Oxalate (Lexapro) 10 mg DAILY PO Last administered on 07/22/16 08 :40; Admin Dose 10 MG; Start 07/13/16 at 09:00 Ferrous Sulfate (Ferrous Sulfate (Ec)) 325 mg DAILY PO Last administered on 08:40; Admin Dose 325 MG; Start 07/13/16 at 09:00 Gabapentin (Neurontin) 100 mg DAILY PO Last administered on 07/22/16 08:39; Admin Dose 100 MG; Start 07/13/16 at 09:00 Acetaminophen/ Hydrocodone Bitart ([place] (5/325)) 1 tab Q4H PRN PO PAIN Last administered on 07/20/16 09:59; Admin Dose 1 TAB; Start 07/12/16 at 23:30 Acetaminophen/ Hydrocodone Bitart ([place] (5/325)) 2 tab Q4H PRN PO PAIN; Start 07/12/16 at 23:30 Metoprolol Succinate (Toprol Xl) 25 mg DAILY PO Last administered on 07/21/16 08:44; Admin Dose 25 MG; Start 07/13/16 at 09:00 Morphine Sulfate (morphine) 2 mg Q4H PRN IV PAIN; Start 07/12/16 at 23:30 Multivit/Ca Carb/ B Cmplx/FA/Prenat ([place]) 1 tab DAILY PO Last administered on 07/22/16 08:39; Admin Dose 1 TAB; Start 07/13/16 at 09:00 Ondansetron HCl (Zofran Inj) 4 mg Q6H PRN IV NAUSEA AND/OR VOMITING Last administered on 07/21/16 11:25; Admin Dose 4 MG; Start 07/12/16 at 23:30 Polyethylene Glycol (Miralax) 17 gm DAILY PO Last administered on 07/22/16 08: 40; Admin Dose 17 GM; Start 07/13/16 at 09:00 Sodium Biphosphate/ Sodium Phosphate (Fleet Enema) 133 ml DAILY PRN [place] CONSTIPATION; Start 07/12/16 at 23:30 Heparin Sodium (Porcine) (Heparin (5000 Units/0.5 ml)) 5,000 unit BID SC Last administered on 07/22/16 08:39; Admin Dose 5,000 UNIT; Start 07/16/16 at 09:00 Pantoprazole (Protonix Tab) 40 mg BID@06,18 PO Last administered on 07/22/16 06:19; Admin Dose 40 MG; Start 07/16/16 at 18:00 Acyclovir (Zovirax) 200 mg BID PO Last administered on 07/22/16 08:39; Admin Dose 200 MG; Start 07/16/16 at 14:30 Hydralazine HCl (Apresoline) 10 mg TID PO Last administered on 07/21/16 08:43 ; Admin Dose 10 MG; Start 07/20/16 at 21:00 Assessment/Plan Chief Complaint/Hosp Course 1. Right hip fracture status post open reduction internal fixation. The patient is currently stable. Continue PT, OT. 2. End-stage renal disease. Plan for dialysis qod 3. Herpes simplex. The patient's serologies are positive. Continue acyclovir. 4. Hypertension. Continue current blood pressure regimen. 5. Diabetes. Continue Accu-Cheks and insulin sliding scale. 6. Chronic pain syndrome. Continue current pain regimen. 7. Mineral bone disorder. Continue to monitor calcium and phosphorus levels. 8. Hypothyroidism. Continue Synthroid. 9. Cardiomyopathy. Continue current medical management. 10. Peripheral vascular disease, status post fem-pop. 11. Gastrointestinal and deep venous thrombosis prophylaxis. Continue PPI and heparin. Problems: JOLENE CARTER MD July 22, 2016 10:22
--- NOTE | 2016-07-22 12:41 | PN ---
Date/Time of Note Date/Time of Note DATE: 07/22/16 TIME: 12:35 Assessment/Plan VTE Prophylaxis VTE Prophylaxis Intervention: ambulation, heparin Lines/Catheters IV Catheter Type (from Nrsg): [place] Urinary Cath still in place: No Assessment/Plan Assessment/Plan 1. Status post mechanical fall with right femoral neck fracture, status post right hip hemiarthroplasty. With impaired mobility/gait/ADLs. Continue PT/OT. Min assist for bed mobility and transfers. 2. Acute post op pain syndrome. Controlled. Continue pain regimen. 3. End-stage renal disease, on hemodialysis per nephrology. 4. Peripheral vascular disease with history of bypass. Continue medical management. 5. Diabetes mellitus type 2. Continue to monitor blood sugar, overall controlled. 6. Hypertension. Continue to monitor BP, overall controlled. 7. History of coronary artery disease s/p CABG. Continue medical management. 8. History of cardiomyopathy. Stable, continue medical management. 9. History of bradyarrhythmia s/p pacemaker. Cardiology following. 10. Hypothyroidism. Continue levothyroxine. 11. Anemia. Continue to monitor hemoglobin/hematocrit, hematology following. 12. Ischial deep tissue injury in addition to bilateral heel decubitus ulcers. Continue wound care and pressure relief Subjective 24 Hr Interval Summary Free Text/Dictation Rehab progress note Subjective: Reports minimal pain currently in right hip. ROS: No chest pain, no shortness of breath, no abdominal pain, no nausea, no vomiting, no chills. Exam/Review of Systems Vital Signs Vitals Vital Signs Date Time Temp Pulse Resp B/P Pulse Ox O2 Delivery O2 Flow Rate FiO2 07/21/16 20:23 98.4 74 18 144/62 94 Intake and Output 07/21/16 07/21/16 07/22/16 15:00 23:00 07:00 Intake Total 720 ml 760 ml Output Total 180 ml 2300 ml Balance 540 ml -1540 ml Exam General: Awake, alert, no acute distress CV: Regular rate, s1s2 Lungs: Symmetrical air entry bilaterally, no wheezing or crackles Abdomen soft, nontender Extremities without cyanosis, no new swelling Neuro: Active R DF/PF. No new sensory changes. Results Result Diagram: 07/21/16 0615 07/21/16 0826 Results 24 hrs Laboratory Tests Test 07/21/16 12:48 07/21/16 17:00 07/21/16 20:32 07/22/16 07:39 Lab Scanned Report REFERENCE LAB Bedside Glucose 154 138 128 Test 07/22/16 11:50 Bedside Glucose 153 Medications Medications Current Medications Docusate Sodium (Colace) 100 mg BID PO Last administered on 07/22/16 08:40; Admin Dose 100 MG; Start 07/13/16 at 09:00 Senna (Senokot) 1 tab HS PO Last administered on 07/21/16 20:34; Admin Dose 1 TAB; Start 07/13/16 at 21:00 Atorvastatin Calcium (Lipitor) 80 mg DAILY@21 PO Last administered on 20:39; Admin Dose 80 MG; Start 07/12/16 at 23:15 Miscellaneous Information 1 ea NOTE XX ; Start 07/12/16 at 23:30 Glucose (Glutose) 15 gm Q15M PRN PO DECREASED GLUCOSE; Start 07/12/16 at 23:30 Glucose (Glutose) 22.5 gm Q15M PRN PO DECREASED GLUCOSE; Start 07/12/16 at 23:30 Dextrose (D50w Syringe) 25 ml Q15M PRN IV DECREASED GLUCOSE; Start 07/12/16 at 23:30 Dextrose (D50w Syringe) 50 ml Q15M PRN IV DECREASED GLUCOSE; Start 07/12/16 at 23:30 Glucagon (Glucagen) 1 mg Q15M PRN IM DECREASED GLUCOSE; Start 07/12/16 at 23:30 Glucose (Glutose) 15 gm Q15M PRN BUCCAL DECREASED GLUCOSE; Start 07/12/16 at 23: 30 Diagnostic Test (Pha) (Accu-Chek) 1 ea 02 XX ; Start 07/13/16 at 02:00 Bisacodyl (Dulcolax Supp) 10 mg DAILY PRN [place] CONSTIPATION; Start 07/12/16 at 23: 30 Escitalopram Oxalate (Lexapro) 10 mg DAILY PO Last administered on 07/22/16 08 :40; Admin Dose 10 MG; Start 07/13/16 at 09:00 Ferrous Sulfate (Ferrous Sulfate (Ec)) 325 mg DAILY PO Last administered on 08:40; Admin Dose 325 MG; Start 07/13/16 at 09:00 Gabapentin (Neurontin) 100 mg DAILY PO Last administered on 07/22/16 08:39; Admin Dose 100 MG; Start 07/13/16 at 09:00 Acetaminophen/ Hydrocodone Bitart ([place] (5/325)) 1 tab Q4H PRN PO PAIN Last administered on 07/20/16 09:59; Admin Dose 1 TAB; Start 07/12/16 at 23:30 Acetaminophen/ Hydrocodone Bitart ([place] (5/325)) 2 tab Q4H PRN PO PAIN; Start 07/12/16 at 23:30 Metoprolol Succinate (Toprol Xl) 25 mg DAILY PO Last administered on 07/21/16 08:44; Admin Dose 25 MG; Start 07/13/16 at 09:00 Morphine Sulfate (morphine) 2 mg Q4H PRN IV PAIN; Start 07/12/16 at 23:30 Multivit/Ca Carb/ B Cmplx/FA/Prenat ([place]) 1 tab DAILY PO Last administered on 07/22/16 08:39; Admin Dose 1 TAB; Start 07/13/16 at 09:00 Ondansetron HCl (Zofran Inj) 4 mg Q6H PRN IV NAUSEA AND/OR VOMITING Last administered on 07/21/16 11:25; Admin Dose 4 MG; Start 07/12/16 at 23:30 Polyethylene Glycol (Miralax) 17 gm DAILY PO Last administered on 07/22/16 08: 40; Admin Dose 17 GM; Start 07/13/16 at 09:00 Sodium Biphosphate/ Sodium Phosphate (Fleet Enema) 133 ml DAILY PRN [place] CONSTIPATION; Start 07/12/16 at 23:30 Heparin Sodium (Porcine) (Heparin (5000 Units/0.5 ml)) 5,000 unit BID SC Last administered on 07/22/16 08:39; Admin Dose 5,000 UNIT; Start 07/16/16 at 09:00 Pantoprazole (Protonix Tab) 40 mg BID@,18 PO Last administered on 07/22/16 06:19; Admin Dose 40 MG; Start 07/16/16 at 18:00 Acyclovir (Zovirax) 200 mg BID PO Last administered on 07/22/16 08:39; Admin Dose 200 MG; Start 07/16/16 at 14:30 Hydralazine HCl (Apresoline) 10 mg TID PO Last administered on 07/21/16 08:43 ; Admin Dose 10 MG; Start 07/20/16 at 21:00 CHANDNI ABBOTT July 22, 2016 12:41
--- NOTE | 2016-07-22 14:29 | CONS ---
Date/Time of Note Date/Time of Note DATE: 07/22/16 TIME: 14:24 Assessment/Plan Assessment/Plan Additional Assessment/Plan s/p fall s/p ORIF right Hip CAD s/p CABG Ischemic cardiomyopathy s/p PPM PAD with Bypass ESRD on HD Diabetes Hypertension Hemodynamically stable Continue Metoprolol Continue Hydralazine Continue Lipitor Continue Insulin HD as scheduled Continue GI and DVT Prophylaxis Consultation Date/Type/Reason Admit Date/Time July 12, 2016 at 21:05 Psychological: no complaints Social History Smoking Status: Never smoker Exam/Review of Systems Vital Signs Vitals Vital Signs Date Time Temp Pulse Resp B/P Pulse Ox O2 Delivery O2 Flow Rate FiO2 07/21/16 20:23 98.4 74 18 144/62 94 Intake and Output 07/21/16 07/21/16 07/22/16 15:00 23:00 07:00 Intake Total 720 ml 760 ml Output Total 180 ml 2300 ml Balance 540 ml -1540 ml Exam Constitutional: alert, oriented Head: atraumatic, normocephalic Neck: non-tender, supple Respiratory: clear to auscultation Cardiovascular: regular rate and rhythm Gastrointestinal: nl liver, spleen, non-tender, soft Extremities: normal pulses Results Result Diagram: 07/21/16 0615 07/21/16 0826 Results 24 hrs Laboratory Tests Test 07/21/16 17:00 07/21/16 20:32 07/22/16 07:39 07/22/16 11:50 Bedside Glucose 154 138 128 153 Medications Medications Current Medications Docusate Sodium (Colace) 100 mg BID PO Last administered on 07/22/16 08:40; Admin Dose 100 MG; Start 07/13/16 at 09:00 Senna (Senokot) 1 tab HS PO Last administered on 07/21/16 20:34; Admin Dose 1 TAB; Start 07/13/16 at 21:00 Atorvastatin Calcium (Lipitor) 80 mg DAILY@21 PO Last administered on 20:39; Admin Dose 80 MG; Start 07/12/16 at 23:15 Miscellaneous Information 1 ea NOTE XX ; Start 07/12/16 at 23:30 Glucose (Glutose) 15 gm Q15M PRN PO DECREASED GLUCOSE; Start 07/12/16 at 23:30 Glucose (Glutose) 22.5 gm Q15M PRN PO DECREASED GLUCOSE; Start 07/12/16 at 23:30 Dextrose (D50w Syringe) 25 ml Q15M PRN IV DECREASED GLUCOSE; Start 07/12/16 at 23:30 Dextrose (D50w Syringe) 50 ml Q15M PRN IV DECREASED GLUCOSE; Start 07/12/16 at 23:30 Glucagon (Glucagen) 1 mg Q15M PRN IM DECREASED GLUCOSE; Start 07/12/16 at 23:30 Glucose (Glutose) 15 gm Q15M PRN BUCCAL DECREASED GLUCOSE; Start 07/12/16 at 23: 30 Diagnostic Test (Pha) (Accu-Chek) 1 ea 02 XX ; Start 07/13/16 at 02:00 Bisacodyl (Dulcolax Supp) 10 mg DAILY PRN [place] CONSTIPATION; Start 07/12/16 at 23: 30 Escitalopram Oxalate (Lexapro) 10 mg DAILY PO Last administered on 07/22/16 08 :40; Admin Dose 10 MG; Start 07/13/16 at 09:00 Ferrous Sulfate (Ferrous Sulfate (Ec)) 325 mg DAILY PO Last administered on 08:40; Admin Dose 325 MG; Start 07/13/16 at 09:00 Gabapentin (Neurontin) 100 mg DAILY PO Last administered on 07/22/16 08:39; Admin Dose 100 MG; Start 07/13/16 at 09:00 Acetaminophen/ Hydrocodone Bitart ([place] (5/325)) 1 tab Q4H PRN PO PAIN Last administered on 07/20/16 09:59; Admin Dose 1 TAB; Start 07/12/16 at 23:30 Acetaminophen/ Hydrocodone Bitart ([place] (5/325)) 2 tab Q4H PRN PO PAIN; Start 07/12/16 at 23:30 Metoprolol Succinate (Toprol Xl) 25 mg DAILY PO Last administered on 07/21/16 08:44; Admin Dose 25 MG; Start 07/13/16 at 09:00 Morphine Sulfate (morphine) 2 mg Q4H PRN IV PAIN; Start 07/12/16 at 23:30 Multivit/Ca Carb/ B Cmplx/FA/Prenat ([place]) 1 tab DAILY PO Last administered on 07/22/16 08:39; Admin Dose 1 TAB; Start 07/13/16 at 09:00 Ondansetron HCl (Zofran Inj) 4 mg Q6H PRN IV NAUSEA AND/OR VOMITING Last administered on 07/21/16 11:25; Admin Dose 4 MG; Start 07/12/16 at 23:30 Polyethylene Glycol (Miralax) 17 gm DAILY PO Last administered on 07/22/16 08: 40; Admin Dose 17 GM; Start 07/13/16 at 09:00 Sodium Biphosphate/ Sodium Phosphate (Fleet Enema) 133 ml DAILY PRN [place] CONSTIPATION; Start 07/12/16 at 23:30 Heparin Sodium (Porcine) (Heparin (5000 Units/0.5 ml)) 5,000 unit BID SC Last administered on 07/22/16 08:39; Admin Dose 5,000 UNIT; Start 07/16/16 at 09:00 Pantoprazole (Protonix Tab) 40 mg BID@06,18 PO Last administered on 07/22/16 06:19; Admin Dose 40 MG; Start 07/16/16 at 18:00 Acyclovir (Zovirax) 200 mg BID PO Last administered on 07/22/16 08:39; Admin Dose 200 MG; Start 07/16/16 at 14:30 Hydralazine HCl (Apresoline) 10 mg TID PO Last administered on 07/21/16 08:43 ; Admin Dose 10 MG; Start 07/20/16 at 21:00 ALBA SHEPPARD M.D. July 22, 2016 14:29
[2016-07-22 20:15] VITALS: BP 111/54; RESP 18
[2016-07-22] MEDS: SENNA TAB PO SCH (20:19)
[2016-07-22] MEDS: ATORVASTATIN 80 MG TAB PO SCH (20:19)
--- NOTE | 2016-07-22 22:52 | CONS ---
Date/Time of Note Date/Time of Note DATE: 07/22/16 TIME: 22:51 Assessment/Plan Assessment/Plan Chief Complaint/Hosp Course ANEMIA- COMPLEX, MULTIFACTORIAL MONITOR CLOSELY OBSERVE FOR BLEEDING AND HEMOLYSIS TRANSFUSE TO KEEP HB ABOVE 8 Right hip fracture status post open reduction internal fixation. The patient is currently stable. Continue PT, OT. End-stage renal disease. 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 The patient has been seen by Dr. [place]. Started on acyclovir. Cultures have been sent. Will monitor. Hypertension. Continue current blood pressure regimen. Diabetes. Continue current insulin regimen. Cardiomyopathy, stable. Continue current medical management. Chronic pain syndrome. Continue current pain regimen. Hypothyroidism. Continue Synthroid. History of peripheral vascular disease. GI and deep vein thrombosis prophylaxis. Continue PPI and Lovenox. Problems: Consultation Date/Type/Reason Admit Date/Time July 12, 2016 at 21:05 [facility] Referring Provider: BRANDI ERICKSON DO 24 HR Interval Summary Free Text/Dictation all noted count stable Exam/Review of Systems Vital Signs Vitals Vital Signs Date Time Temp Pulse Resp B/P Pulse Ox O2 Delivery O2 Flow Rate FiO2 07/22/16 20:15 98.5 74 18 111/54 99 Intake and Output 07/21/16 07/21/16 07/22/16 15:00 23:00 07:00 Intake Total 720 ml 760 ml Output Total 180 ml 2300 ml Balance 540 ml -1540 ml Exam Constitutional: alert, oriented Head: atraumatic, normocephalic Neck: non-tender, supple Respiratory: clear to auscultation Cardiovascular: regular rate and rhythm Gastrointestinal: nl liver, spleen, non-tender, soft Extremities: normal pulses Results Result Diagram: 07/21/16 0615 07/21/16 0826 Results 24 hrs Laboratory Tests Test 07/22/16 07:39 07/22/16 11:50 07/22/16 17:30 07/22/16 20:13 Bedside Glucose 128 153 217 257 H Medications Medications Current Medications Docusate Sodium (Colace) 100 mg BID PO Last administered on 07/22/16 20:19; Admin Dose 100 MG; Start 07/13/16 at 09:00 Senna (Senokot) 1 tab HS PO Last administered on 07/22/16 20:19; Admin Dose 1 TAB; Start 07/13/16 at 21:00 Atorvastatin Calcium (Lipitor) 80 mg DAILY@21 PO Last administered on 20:19; Admin Dose 80 MG; Start 07/12/16 at 23:15 Miscellaneous Information 1 ea NOTE XX ; Start 07/12/16 at 23:30 Glucose (Glutose) 15 gm Q15M PRN PO DECREASED GLUCOSE; Start 07/12/16 at 23:30 Glucose (Glutose) 22.5 gm Q15M PRN PO DECREASED GLUCOSE; Start 07/12/16 at 23:30 Dextrose (D50w Syringe) 25 ml Q15M PRN IV DECREASED GLUCOSE; Start 07/12/16 at 23:30 Dextrose (D50w Syringe) 50 ml Q15M PRN IV DECREASED GLUCOSE; Start 07/12/16 at 23:30 Glucagon (Glucagen) 1 mg Q15M PRN IM DECREASED GLUCOSE; Start 07/12/16 at 23:30 Glucose (Glutose) 15 gm Q15M PRN BUCCAL DECREASED GLUCOSE; Start 07/12/16 at 23: 30 Diagnostic Test (Pha) (Accu-Chek) 1 ea 02 XX ; Start 07/13/16 at 02:00 Bisacodyl (Dulcolax Supp) 10 mg DAILY PRN [place] CONSTIPATION; Start 07/12/16 at 23: 30 Escitalopram Oxalate (Lexapro) 10 mg DAILY PO Last administered on 07/22/16 08 :40; Admin Dose 10 MG; Start 07/13/16 at 09:00 Ferrous Sulfate (Ferrous Sulfate (Ec)) 325 mg DAILY PO Last administered on 08:40; Admin Dose 325 MG; Start 07/13/16 at 09:00 Gabapentin (Neurontin) 100 mg DAILY PO Last administered on 07/22/16 08:39; Admin Dose 100 MG; Start 07/13/16 at 09:00 Acetaminophen/ Hydrocodone Bitart ([place] (5/325)) 1 tab Q4H PRN PO PAIN Last administered on 07/20/16 09:59; Admin Dose 1 TAB; Start 07/12/16 at 23:30 Acetaminophen/ Hydrocodone Bitart ([place] (5/325)) 2 tab Q4H PRN PO PAIN; Start 07/12/16 at 23:30 Metoprolol Succinate (Toprol Xl) 25 mg DAILY PO Last administered on 07/21/16 08:44; Admin Dose 25 MG; Start 07/13/16 at 09:00 Morphine Sulfate (morphine) 2 mg Q4H PRN IV PAIN; Start 07/12/16 at 23:30 Multivit/Ca Carb/ B Cmplx/FA/Prenat ([place]ie-Roge) 1 tab DAILY PO Last administered on 07/22/16 08:39; Admin Dose 1 TAB; Start 07/13/16 at 09:00 Ondansetron HCl (Zofran Inj) 4 mg Q6H PRN IV NAUSEA AND/OR VOMITING Last administered on 07/21/16 11:25; Admin Dose 4 MG; Start 07/12/16 at 23:30 Polyethylene Glycol (Miralax) 17 gm DAILY PO Last administered on 07/22/16 08: 40; Admin Dose 17 GM; Start 07/13/16 at 09:00 Sodium Biphosphate/ Sodium Phosphate (Fleet Enema) 133 ml DAILY PRN [place] CONSTIPATION; Start 07/12/16 at 23:30 Heparin Sodium (Porcine) (Heparin (5000 Units/0.5 ml)) 5,000 unit BID SC Last administered on 07/22/16 20:21; Admin Dose 5,000 UNIT; Start 07/16/16 at 09:00 Pantoprazole (Protonix Tab) 40 mg BID@06,18 PO Last administered on 07/22/16 06:19; Admin Dose 40 MG; Start 07/16/16 at 18:00 Acyclovir (Zovirax) 200 mg BID PO Last administered on 07/22/16 20:19; Admin Dose 200 MG; Start 07/16/16 at 14:30 Hydralazine HCl (Apresoline) 10 mg TID PO Last administered on 07/22/16 20:20 ; Admin Dose 10 MG; Start 07/20/16 at 21:00 FABY HORN MD July 22, 2016 22:52
[2016-07-23] MEDS: ACCUCHECK AT 2AM (Patients on SS coverage) XX SCH (02:00)
[2016-07-23] MEDS: LEVOTHYROXINE 88 MCG TAB PO SCH (06:35)
[2016-07-23] MEDS: PANTOPRAZOLE (EC) 40 MG TAB PO SCH ×2 (06:35→17:37)
[2016-07-23 07:30] VITALS: BP 128/60; RESP 18
[2016-07-23] MEDS: Insulin NOVOLOG SS MILD Algorithm (SS with meals and bedtime) SC SCH ×4 (07:35→20:34)
[2016-07-23] MEDS: SEVELAMER CARBONATE 0.8 GM PKT PO SCH ×3 (08:19→17:39)
[2016-07-23] MEDS: REPAGLINIDE 1 MG TAB PO SCH ×3 (08:19→17:37)
[2016-07-23] MEDS: POLYETHYLENE GLYCOL 17 GM PACKET PO SCH (08:20)
[2016-07-23] MEDS: DOCUSATE SODIUM 100 MG CAP PO SCH ×2 (08:20→20:33)
[2016-07-23] MEDS: ESCITALOPRAM 10 MG TAB PO SCH (08:20)
[2016-07-23] MEDS: FERROUS SULFATE (EC) 325 MG TAB PO SCH (08:20)
[2016-07-23] MEDS: MULTIVIT/CA CARB/B CMPLX/FA TAB PO SCH (08:21)
[2016-07-23] MEDS: METOPROLOL (XL) 25 MG TAB PO SCH (08:21)
[2016-07-23] MEDS: GABAPENTIN 100 MG CAP PO SCH (08:21)
[2016-07-23] MEDS: HEPARIN 5,000 UNIT/0.5 ML VIAL SC SCH ×2 (08:27→20:32)
[2016-07-23] MEDS: ACYCLOVIR 200 MG CAP PO SCH ×2 (08:28→20:33)
--- NOTE | 2016-07-23 08:48 | CONS ---
Date/Time of Note Date/Time of Note DATE: 07/23/16 TIME: 08:47 Consult Date/Type/Reason Admit Date/Time July 12, 2016 at 21:05 Type of Consultation: neph/med Ordering Provider: BRANDI ERICKSON 75-year-old female with a past medical history of end-stage renal disease on dialysis Sunday and Sunday, access Perm-A-Cath, history of peripheral vascular disease status post right lower extremity bypass, history of cardiomyopathy, coronary artery disease status post CABG, history of arrhythmia, diabetes who presented to [facility] after suffering a mechanical fall. The patient was diagnosed with right hip arthroplasty. She was admitted to the med/surg. She was seen by the orthopedist Dr. Maria and had an ORIF of her right hip. The patient postoperatively was stable; however, she had a significant decline in her premorbid state and as a result, she was transferred over to [facility] acute rehab for continued care. on hd today. tolerates meds and therapies. HEENT: Head is normocephalic. NECK: Supple. HEART: Regular rate. LUNGS: Show diminished breath sounds at the base. ABDOMEN: Soft, nontender to palpation. No rebound or guarding. EXTREMITIES: Negative for clubbing, cyanosis. No edema. DERMATOLOGIC: No rashes. MUSCULOSKELETAL: No joint effusions. NEUROLOGIC: No change in exam. Objective Vital Signs Date Time Temp Pulse Resp B/P Pulse Ox O2 Delivery O2 Flow Rate FiO2 07/22/16 20:15 98.5 74 18 111/54 99 Intake and Output 07/22/16 07/22/16 07/23/16 15:00 23:00 07:00 Intake Total 360 ml 240 ml 150 ml Balance 360 ml 240 ml 150 ml Results/Medications Result Diagram: 07/21/16 0615 07/21/16 0826 Results 24 hrs Laboratory Tests Test 07/22/16 11:50 07/22/16 17:30 07/22/16 20:13 07/23/16 01:53 Bedside Glucose 153 217 257 H 173 Test 07/23/16 08:03 Bedside Glucose 144 Medications Current Medications Docusate Sodium (Colace) 100 mg BID PO Last administered on 07/23/16t 08:20; Admin Dose 100 MG; Start 07/13/16 at 09:00 Senna (Senokot) 1 tab HS PO Last administered on 07/22/16 20:19; Admin Dose 1 TAB; Start 07/13/16 at 21:00 Atorvastatin Calcium (Lipitor) 80 mg DAILY@21 PO Last administered on 20:19; Admin Dose 80 MG; Start 07/12/16 at 23:15 Miscellaneous Information 1 ea NOTE XX ; Start 07/12/16 at 23:30 Glucose (Glutose) 15 gm Q15M PRN PO DECREASED GLUCOSE; Start 07/12/16 at 23:30 Glucose (Glutose) 22.5 gm Q15M PRN PO DECREASED GLUCOSE; Start 07/12/16 at 23:30 Dextrose (D50w Syringe) 25 ml Q15M PRN IV DECREASED GLUCOSE; Start 07/12/16 at 23:30 Dextrose (D50w Syringe) 50 ml Q15M PRN IV DECREASED GLUCOSE; Start 07/12/16 at 23:30 Glucagon (Glucagen) 1 mg Q15M PRN IM DECREASED GLUCOSE; Start 07/12/16 at 23:30 Glucose (Glutose) 15 gm Q15M PRN BUCCAL DECREASED GLUCOSE; Start 07/12/16 at 23: 30 Diagnostic Test (Pha) (Accu-Chek) 1 ea 02 XX ; Start 07/13/16 at 02:00 Bisacodyl (Dulcolax Supp) 10 mg DAILY PRN [place] CONSTIPATION; Start 07/12/16 at 23: 30 Escitalopram Oxalate (Lexapro) 10 mg DAILY PO Last administered on 07/23/16 08 :20; Admin Dose 10 MG; Start 07/13/16 at 09:00 Ferrous Sulfate (Ferrous Sulfate (Ec)) 325 mg DAILY PO Last administered on 08:20; Admin Dose 325 MG; Start 07/13/16 at 09:00 Gabapentin (Neurontin) 100 mg DAILY PO Last administered on 07/23/16 08:21; Admin Dose 100 MG; Start 07/13/16 at 09:00 Acetaminophen/ Hydrocodone Bitart ([place] (5/325)) 1 tab Q4H PRN PO PAIN Last administered on 07/20/16 09:59; Admin Dose 1 TAB; Start 07/12/16 at 23:30 Acetaminophen/ Hydrocodone Bitart ([place] (5/325)) 2 tab Q4H PRN PO PAIN; Start 07/12/16 at 23:30 Metoprolol Succinate (Toprol Xl) 25 mg DAILY PO Last administered on 07/23/16 08:21; Admin Dose 25 MG; Start 07/13/16 at 09:00 Morphine Sulfate (morphine) 2 mg Q4H PRN IV PAIN; Start 07/12/16 at 23:30 Multivit/Ca Carb/ B Cmplx/FA/Prenat (Billie-Roge) 1 tab DAILY PO Last administered on 07/23/16 08:21; Admin Dose 1 TAB; Start 07/13/16 at 09:00 Ondansetron HCl (Zofran Inj) 4 mg Q6H PRN IV NAUSEA AND/OR VOMITING Last administered on 07/21/16 11:25; Admin Dose 4 MG; Start 07/12/16 at 23:30 Polyethylene Glycol (Miralax) 17 gm DAILY PO Last administered on 07/23/16 08: 20; Admin Dose 17 GM; Start 07/13/16 at 09:00 Sodium Biphosphate/ Sodium Phosphate (Fleet Enema) 133 ml DAILY PRN [place] CONSTIPATION; Start 07/12/16 at 23:30 Heparin Sodium (Porcine) (Heparin (5000 Units/0.5 ml)) 5,000 unit BID SC Last administered on 07/23/16 08:27; Admin Dose 5,000 UNIT; Start 07/16/16 at 09:00 Pantoprazole (Protonix Tab) 40 mg BID@06,18 PO Last administered on 07/23/16 06:35; Admin Dose 40 MG; Start 07/16/16 at 18:00 Acyclovir (Zovirax) 200 mg BID PO Last administered on 07/22/16 20:19; Admin Dose 200 MG; Start 07/16/16 at 14:30 Hydralazine HCl (Apresoline) 10 mg TID PO Last administered on 07/23/16 08:20 ; Admin Dose 10 MG; Start 07/20/16 at 21:00 Assessment/Plan Chief Complaint/Hosp Course 1. Right hip fracture status post open reduction internal fixation. The patient is currently stable. Continue PT, OT. 2. End-stage renal disease. Plan for dialysis qod 3. Herpes simplex. The patient's serologies are positive. Continue acyclovir. id input appreciated 4. Hypertension. Continue current blood pressure regimen. 5. Diabetes. Continue Accu-Cheks and insulin sliding scale. 6. Chronic pain syndrome. Continue current pain regimen. 7. Mineral bone disorder. Continue to monitor calcium and phosphorus levels. 8. Hypothyroidism. Continue Synthroid. 9. Cardiomyopathy. Continue current medical management. 10. Peripheral vascular disease, status post fem-pop. 11. Gastrointestinal and deep venous thrombosis prophylaxis. Continue PPI and heparin. Problems: JOLENE CARTER MD July 23, 2016 08:48
--- NOTE | 2016-07-23 10:39 | PN ---
Date/Time of Note Date/Time of Note DATE: 07/23/16 TIME: 10:35 Assessment/Plan VTE Prophylaxis VTE Prophylaxis Intervention: ambulation, heparin Lines/Catheters IV Catheter Type (from Nrsg): [place] Urinary Cath still in place: No Assessment/Plan Assessment/Plan 1. Right hip femoral neck fracture status post mechanical fall, treated with right hip hemiarthroplasty. With impaired mobility/gait/ADLs. Continue PT/OT. Min assist for toileting, SBA for lower body dressing. 2. Acute post op pain syndrome. Pain controlled, on gabapentin and prn norco. 3. End-stage renal disease, on hemodialysis, managed per nephrology. 4. Peripheral vascular disease with history of bypass. Continue medical management. 5. Diabetes mellitus type 2. Continue to monitor blood sugars. Continue insulin sliding scale. 6. Hypertension. BP Controlled. 7. History of coronary artery disease s/p CABG. Continue medical management per cardiology. 8. History of cardiomyopathy. Continue medical management. 9. Status post pacemaker placement. 10.Anemia. Continue to monitor hemoglobin/hematocrit, on epogen and iron supplementation per hematology. 11. Hypothyroidism. Continue levothyroxine. 12. Ischial deep tissue injury in addition to bilateral heel decubitus ulcers. Continue wound care and pressure relief 13. Herpes simplex, on acyclovir per infectious disease. Subjective 24 Hr Interval Summary Free Text/Dictation Rehab progress note Subjective: No acute overnight events per nursing staff. Patient without acute complaints, resting comfortably. ROS: No chest pain, no shortness of breath, no abdominal pain, no vomiting, no constipation. Exam/Review of Systems Vital Signs Vitals Vital Signs Date Time Temp Pulse Resp B/P Pulse Ox O2 Delivery O2 Flow Rate FiO2 07/22/16 20:15 98.5 74 18 111/54 99 Intake and Output 07/22/16 07/22/16 07/23/16 15:00 23:00 07:00 Intake Total 360 ml 240 ml 150 ml Balance 360 ml 240 ml 150 ml Exam General: Laying in bed, no acute distress. CV: Regular rate, s1s2 Lungs: Respirations nonlabored, no wheezing or crackles Abdomen soft, nontender, +bowel wounds Extremities without cyanosis, no new swelling Neuro: No new focal changes. Results Result Diagram: 07/21/16 0615 07/21/16 0826 Results 24 hrs Laboratory Tests Test 07/22/16 11:50 07/22/16 17:30 07/22/16 20:13 07/23/16 01:53 Bedside Glucose 153 217 257 H 173 Test 07/23/16 08:03 Bedside Glucose 144 Medications Medications Current Medications Docusate Sodium (Colace) 100 mg BID PO Last administered on 07/23/16 08:20; Admin Dose 100 MG; Start 07/13/16 at 09:00 Senna (Senokot) 1 tab HS PO Last administered on 07/22/16 20:19; Admin Dose 1 TAB; Start 07/13/16 at 21:00 Atorvastatin Calcium (Lipitor) 80 mg DAILY@21 PO Last administered on 20:19; Admin Dose 80 MG; Start 07/12/16 at 23:15 Miscellaneous Information 1 ea NOTE XX ; Start 07/12/16 at 23:30 Glucose (Glutose) 15 gm Q15M PRN PO DECREASED GLUCOSE; Start 07/12/16 at 23:30 Glucose (Glutose) 22.5 gm Q15M PRN PO DECREASED GLUCOSE; Start 07/12/16 at 23:30 Dextrose (D50w Syringe) 25 ml Q15M PRN IV DECREASED GLUCOSE; Start 07/12/16 at 23:30 Dextrose (D50w Syringe) 50 ml Q15M PRN IV DECREASED GLUCOSE; Start 07/12/16 at 23:30 Glucagon (Glucagen) 1 mg Q15M PRN IM DECREASED GLUCOSE; Start 07/12/16 at 23:30 Glucose (Glutose) 15 gm Q15M PRN BUCCAL DECREASED GLUCOSE; Start 07/12/16 at 23: 30 Diagnostic Test (Pha) (Accu-Chek) 1 ea 02 XX ; Start 07/13/16 at 02:00 Bisacodyl (Dulcolax Supp) 10 mg DAILY PRN [place] CONSTIPATION; Start 07/12/16 at 23: 30 Escitalopram Oxalate (Lexapro) 10 mg DAILY PO Last administered on 07/23/16 08 :20; Admin Dose 10 MG; Start 07/13/16 at 09:00 Ferrous Sulfate (Ferrous Sulfate (Ec)) 325 mg DAILY PO Last administered on 08:20; Admin Dose 325 MG; Start 07/13/16 at 09:00 Gabapentin (Neurontin) 100 mg DAILY PO Last administered on 07/23/16 08:21; Admin Dose 100 MG; Start 07/13/16 at 09:00 Acetaminophen/ Hydrocodone Bitart ([place] (5/325)) 1 tab Q4H PRN PO PAIN Last administered on 07/20/16 09:59; Admin Dose 1 TAB; Start 07/12/16 at 23:30 Acetaminophen/ Hydrocodone Bitart ([place] (5/325)) 2 tab Q4H PRN PO PAIN; Start 07/12/16 at 23:30 Metoprolol Succinate (Toprol Xl) 25 mg DAILY PO Last administered on 07/23/16 08:21; Admin Dose 25 MG; Start 07/13/16 at 09:00 Morphine Sulfate (morphine) 2 mg Q4H PRN IV PAIN; Start 07/12/16 at 23:30 Multivit/Ca Carb/ B Cmplx/FA/Prenat (Billie-Roge) 1 tab DAILY PO Last administered on 07/23/16 08:21; Admin Dose 1 TAB; Start 07/13/16 at 09:00 Ondansetron HCl (Zofran Inj) 4 mg Q6H PRN IV NAUSEA AND/OR VOMITING Last administered on 07/21/16 11:25; Admin Dose 4 MG; Start 07/12/16 at 23:30 Polyethylene Glycol (Miralax) 17 gm DAILY PO Last administered on 07/23/16 08: 20; Admin Dose 17 GM; Start 07/13/16 at 09:00 Sodium Biphosphate/ Sodium Phosphate (Fleet Enema) 133 ml DAILY PRN [place] CONSTIPATION; Start 07/12/16 at 23:30 Heparin Sodium (Porcine) (Heparin (5000 Units/0.5 ml)) 5,000 unit BID SC Last administered on 07/23/16 08:27; Admin Dose 5,000 UNIT; Start 07/16/16 at 09:00 Pantoprazole (Protonix Tab) 40 mg BID@,18 PO Last administered on 07/23/16 06:35; Admin Dose 40 MG; Start 07/16/16 at 18:00 Acyclovir (Zovirax) 200 mg BID PO Last administered on 07/22/16 20:19; Admin Dose 200 MG; Start 07/16/16 at 14:30 Hydralazine HCl (Apresoline) 10 mg TID PO Last administered on 07/23/16t 08:20 ; Admin Dose 10 MG; Start 07/20/16 at 21:00 CHANDNI ABBOTT July 23, 2016 10:39
--- NOTE | 2016-07-23 13:46 | CONS ---
Date/Time of Note Date/Time of Note DATE: 07/23/16 TIME: 13:46 Assessment/Plan Assessment/Plan Additional Assessment/Plan s/p fall s/p ORIF right Hip CAD s/p CABG Ischemic cardiomyopathy s/p PPM PAD with Bypass ESRD on HD Diabetes Hypertension Anemia Hemodynamically stable Continue Metoprolol Continue Hydralazine Continue Lipitor Continue Insulin HD as scheduled Continue GI and DVT Prophylaxis Consultation Date/Type/Reason Admit Date/Time July 12, 2016 at 21:05 Initial Consult Date Type of Consultation: neph/med Referring Provider: BRANDI ERICKSON DO Exam/Review of Systems Vital Signs Vitals Vital Signs Date Time Temp Pulse Resp B/P Pulse Ox O2 Delivery O2 Flow Rate FiO2 07/22/16 20:15 98.5 74 18 111/54 99 Intake and Output 07/22/16 07/22/16 07/23/16 15:00 23:00 07:00 Intake Total 360 ml 240 ml 150 ml Balance 360 ml 240 ml 150 ml Exam Constitutional: alert, oriented Head: atraumatic, normocephalic Neck: non-tender, supple Respiratory: clear to auscultation Cardiovascular: regular rate and rhythm Gastrointestinal: nl liver, spleen, non-tender, soft Extremities: normal pulses Results Result Diagram: 07/21/16 0615 07/21/16 0826 Results 24 hrs Laboratory Tests Test 07/22/16 17:30 07/22/16 20:13 07/23/16 01:53 07/23/16 08:03 Bedside Glucose 217 257 H 173 144 Test 07/23/16 12:03 Bedside Glucose 141 Medications Medications Current Medications Docusate Sodium (Colace) 100 mg BID PO Last administered on 07/23/16 08:20; Admin Dose 100 MG; Start 07/13/16 at 09:00 Senna (Senokot) 1 tab HS PO Last administered on 07/22/16 20:19; Admin Dose 1 TAB; Start 07/13/16 at 21:00 Atorvastatin Calcium (Lipitor) 80 mg DAILY@21 PO Last administered on 20:19; Admin Dose 80 MG; Start 07/12/16 at 23:15 Miscellaneous Information 1 ea NOTE XX ; Start 07/12/16 at 23:30 Glucose (Glutose) 15 gm Q15M PRN PO DECREASED GLUCOSE; Start 07/12/16 at 23:30 Glucose (Glutose) 22.5 gm Q15M PRN PO DECREASED GLUCOSE; Start 07/12/16 at 23:30 Dextrose (D50w Syringe) 25 ml Q15M PRN IV DECREASED GLUCOSE; Start 07/12/16 at 23:30 Dextrose (D50w Syringe) 50 ml Q15M PRN IV DECREASED GLUCOSE; Start 07/12/16 at 23:30 Glucagon (Glucagen) 1 mg Q15M PRN IM DECREASED GLUCOSE; Start 07/12/16 at 23:30 Glucose (Glutose) 15 gm Q15M PRN BUCCAL DECREASED GLUCOSE; Start 07/12/16 at 23: 30 Diagnostic Test (Pha) (Accu-Chek) 1 ea 02 XX ; Start 07/13/16 at 02:00 Bisacodyl (Dulcolax Supp) 10 mg DAILY PRN [place] CONSTIPATION; Start 07/12/16 at 23: 30 Escitalopram Oxalate (Lexapro) 10 mg DAILY PO Last administered on 07/23/16 08 :20; Admin Dose 10 MG; Start 07/13/16 at 09:00 Ferrous Sulfate (Ferrous Sulfate (Ec)) 325 mg DAILY PO Last administered on 08:20; Admin Dose 325 MG; Start 07/13/16 at 09:00 Gabapentin (Neurontin) 100 mg DAILY PO Last administered on 07/23/16 08:21; Admin Dose 100 MG; Start 07/13/16 at 09:00 Acetaminophen/ Hydrocodone Bitart ([place] (5/325)) 1 tab Q4H PRN PO PAIN Last administered on 07/20/16 09:59; Admin Dose 1 TAB; Start 07/12/16 at 23:30 Acetaminophen/ Hydrocodone Bitart ([place] (5/325)) 2 tab Q4H PRN PO PAIN; Start 07/12/16 at 23:30 Metoprolol Succinate (Toprol Xl) 25 mg DAILY PO Last administered on 07/23/16 08:21; Admin Dose 25 MG; Start 07/13/16 at 09:00 Morphine Sulfate (morphine) 2 mg Q4H PRN IV PAIN; Start 07/12/16 at 23:30 Multivit/Ca Carb/ B Cmplx/FA/Prenat ([place]ie-Roge) 1 tab DAILY PO Last administered on 07/23/16 08:21; Admin Dose 1 TAB; Start 07/13/16 at 09:00 Ondansetron HCl (Zofran Inj) 4 mg Q6H PRN IV NAUSEA AND/OR VOMITING Last administered on 07/21/16 11:25; Admin Dose 4 MG; Start 07/12/16 at 23:30 Polyethylene Glycol (Miralax) 17 gm DAILY PO Last administered on 07/23/16 08: 20; Admin Dose 17 GM; Start 07/13/16 at 09:00 Sodium Biphosphate/ Sodium Phosphate (Fleet Enema) 133 ml DAILY PRN [place] CONSTIPATION; Start 07/12/16 at 23:30 Heparin Sodium (Porcine) (Heparin (5000 Units/0.5 ml)) 5,000 unit BID SC Last administered on 07/23/16 08:27; Admin Dose 5,000 UNIT; Start 07/16/16 at 09:00 Pantoprazole (Protonix Tab) 40 mg BID@,18 PO Last administered on 07/23/16 06:35; Admin Dose 40 MG; Start 07/16/16 at 18:00 Acyclovir (Zovirax) 200 mg BID PO Last administered on 07/22/16 20:19; Admin Dose 200 MG; Start 07/16/16 at 14:30 Hydralazine HCl (Apresoline) 10 mg TID PO Last administered on 07/23/16 08:20 ; Admin Dose 10 MG; Start 07/20/16 at 21:00 ALBA SHEPPARD M.D. July 23, 2016 13:46
[2016-07-23 20:00] VITALS: BP 112/57; PULSE 81; RESP 18
[2016-07-23] MEDS: ATORVASTATIN 80 MG TAB PO SCH (20:33)
[2016-07-23] MEDS: SENNA TAB PO SCH (20:33)
--- NOTE | 2016-07-23 22:31 | CONS ---
Date/Time of Note Date/Time of Note DATE: 07/23/16 TIME: 22:30 Assessment/Plan Assessment/Plan Chief Complaint/Hosp Course ANEMIA- COMPLEX, MULTIFACTORIAL MONITOR CLOSELY OBSERVE FOR BLEEDING AND HEMOLYSIS TRANSFUSE TO KEEP HB ABOVE 8 Right hip fracture status post open reduction internal fixation. The patient is currently stable. Continue PT, OT. End-stage renal disease. 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 The patient has been seen by Dr. Mesa. Started on acyclovir. Cultures have been sent. Will monitor. Hypertension. Continue current blood pressure regimen. Diabetes. Continue current insulin regimen. Cardiomyopathy, stable. Continue current medical management. Chronic pain syndrome. Continue current pain regimen. Hypothyroidism. Continue Synthroid. History of peripheral vascular disease. GI and deep vein thrombosis prophylaxis. Continue PPI and Lovenox. Problems: Consultation Date/Type/Reason Admit Date/Time July 12, 2016 at 21:05 [facility]ation: [facility] Referring Provider: BRANDI ERICKSON DO 24 HR Interval Summary Free Text/Dictation ALL NOTED NO NEW EVENTS Exam/Review of Systems Vital Signs Vitals Vital Signs Date Time Temp Pulse Resp B/P Pulse Ox O2 Delivery O2 Flow Rate FiO2 07/23/16 20:00 98.1 81 18 112/57 96 Room Air Intake and Output 07/22/16 07/22/16 07/23/16 14:59 22:59 06:59 Intake Total 360 ml 240 ml 150 ml Balance 360 ml 240 ml 150 ml Exam Constitutional: alert, oriented Head: atraumatic, normocephalic Neck: non-tender, supple Respiratory: clear to auscultation Cardiovascular: regular rate and rhythm Gastrointestinal: nl liver, spleen, non-tender, soft Extremities: normal pulses Results Result Diagram: 07/21/16 0615 07/21/16 0826 Results 24 hrs Laboratory Tests Test 07/23/16 01:53 07/23/16 08:03 07/23/16 12:03 07/23/16 17:11 Bedside Glucose 173 144 141 114 Test 07/23/16 20:30 Bedside Glucose 101 Medications Medications Current Medications Docusate Sodium (Colace) 100 mg BID PO Last administered on 07/23/16 20:33; Admin Dose 100 MG; Start 07/13/16 at 09:00 Senna (Senokot) 1 tab HS PO Last administered on 07/23/16 20:33; Admin Dose 1 TAB; Start 07/13/16 at 21:00 Atorvastatin Calcium (Lipitor) 80 mg DAILY@21 PO Last administered on 20:33; Admin Dose 80 MG; Start 07/12/16 at 23:15 Miscellaneous Information 1 ea NOTE XX ; Start 07/12/16 at 23:30 Glucose (Glutose) 15 gm Q15M PRN PO DECREASED GLUCOSE; Start 07/12/16 at 23:30 Glucose (Glutose) 22.5 gm Q15M PRN PO DECREASED GLUCOSE; Start 07/12/16 at 23:30 Dextrose (D50w Syringe) 25 ml Q15M PRN IV DECREASED GLUCOSE; Start 07/12/16 at 23:30 Dextrose (D50w Syringe) 50 ml Q15M PRN IV DECREASED GLUCOSE; Start 07/12/16 at 23:30 Glucagon (Glucagen) 1 mg Q15M PRN IM DECREASED GLUCOSE; Start 07/12/16 at 23:30 Glucose (Glutose) 15 gm Q15M PRN BUCCAL DECREASED GLUCOSE; Start 07/12/16 at 23: 30 Diagnostic Test (Pha) (Accu-Chek) 1 ea 02 XX ; Start 07/13/16 at 02:00 Bisacodyl (Dulcolax Supp) 10 mg DAILY PRN [place] CONSTIPATION; Start 07/12/16 at 23: 30 Escitalopram Oxalate (Lexapro) 10 mg DAILY PO Last administered on 07/23/16 08 :20; Admin Dose 10 MG; Start 07/13/16 at 09:00 Ferrous Sulfate (Ferrous Sulfate (Ec)) 325 mg DAILY PO Last administered on 08:20; Admin Dose 325 MG; Start 07/13/16 at 09:00 Gabapentin (Neurontin) 100 mg DAILY PO Last administered on 07/23/16 08:21; Admin Dose 100 MG; Start 07/13/16 at 09:00 Acetaminophen/ Hydrocodone Bitart ([place] (5/325)) 1 tab Q4H PRN PO PAIN Last administered on 07/20/16 09:59; Admin Dose 1 TAB; Start 07/12/16 at 23:30 Acetaminophen/ Hydrocodone Bitart ([place] (5/325)) 2 tab Q4H PRN PO PAIN; Start 07/12/16 at 23:30 Metoprolol Succinate (Toprol Xl) 25 mg DAILY PO Last administered on 07/23/16 08:21; Admin Dose 25 MG; Start 07/13/16 at 09:00 Morphine Sulfate (morphine) 2 mg Q4H PRN IV PAIN; Start 07/12/16 at 23:30 Multivit/Ca Carb/ B Cmplx/FA/Prenat ([place]Roge) 1 tab DAILY PO Last administered on 07/23/16 08:21; Admin Dose 1 TAB; Start 07/13/16 at 09:00 Ondansetron HCl (Zofran Inj) 4 mg Q6H PRN IV NAUSEA AND/OR VOMITING Last administered on 07/21/16 11:25; Admin Dose 4 MG; Start 07/12/16 at 23:30 Polyethylene Glycol (Miralax) 17 gm DAILY PO Last administered on 07/23/16 08: 20; Admin Dose 17 GM; Start 07/13/16 at 09:00 Sodium Biphosphate/ Sodium Phosphate (Fleet Enema) 133 ml DAILY PRN [place] CONSTIPATION; Start 07/12/16 at 23:30 Heparin Sodium (Porcine) (Heparin (5000 Units/0.5 ml)) 5,000 unit BID SC Last administered on 07/23/16 20:32; Admin Dose 5,000 UNIT; Start 07/16/16 at 09:00 Pantoprazole (Protonix Tab) 40 mg BID@06,18 PO Last administered on 07/23/16 17:37; Admin Dose 40 MG; Start 07/16/16 at 18:00 Acyclovir (Zovirax) 200 mg BID PO Last administered on 07/23/16 20:33; Admin Dose 200 MG; Start 07/16/16 at 14:30 Hydralazine HCl (Apresoline) 10 mg TID PO Last administered on 07/23/16 20:33 ; Admin Dose 10 MG; Start 07/20/16 at 21:00 FABY HORN MD July 23, 2016 22:31
[2016-07-24] VITALS (9 sets, daily range): BP systolic 113–124; BP diastolic 51–81; PULSE 65–75; RESP 16–18
[2016-07-24] MEDS: ACCUCHECK AT 2AM (Patients on SS coverage) XX SCH (02:00)
[2016-07-24] MEDS: PANTOPRAZOLE (EC) 40 MG TAB PO SCH ×2 (05:35→18:04)
[2016-07-24] MEDS: LEVOTHYROXINE 88 MCG TAB PO SCH (05:35)
[2016-07-24] MEDS: Insulin NOVOLOG SS MILD Algorithm (SS with meals and bedtime) SC SCH ×4 (07:35→21:00)
[2016-07-24] MEDS: MULTIVIT/CA CARB/B CMPLX/FA TAB PO SCH (08:49)
[2016-07-24] MEDS: POLYETHYLENE GLYCOL 17 GM PACKET PO SCH (08:49)
[2016-07-24] MEDS: DOCUSATE SODIUM 100 MG CAP PO SCH ×2 (08:49→20:07)
[2016-07-24] MEDS: ESCITALOPRAM 10 MG TAB PO SCH (08:49)
[2016-07-24] MEDS: GABAPENTIN 100 MG CAP PO SCH (08:49)
[2016-07-24] MEDS: FERROUS SULFATE (EC) 325 MG TAB PO SCH (08:49)
[2016-07-24] MEDS: ACYCLOVIR 200 MG CAP PO SCH ×2 (08:49→20:07)
[2016-07-24] MEDS: SEVELAMER CARBONATE 0.8 GM PKT PO SCH ×3 (08:50→18:04)
[2016-07-24] MEDS: METOPROLOL (XL) 25 MG TAB PO SCH (08:51)
[2016-07-24] MEDS: HEPARIN 5,000 UNIT/0.5 ML VIAL SC SCH ×2 (08:56→20:14)
[2016-07-24] MEDS: REPAGLINIDE 1 MG TAB PO SCH ×3 (08:58→18:06)
--- NOTE | 2016-07-24 10:05 | PN ---
DATE: 07/24/2016 SUBJECTIVE: The patient is stable, no acute events overnight. No fevers, chills, nausea, vomiting, shortness of breath. OBJECTIVE: VITAL SIGNS: Blood pressure 112/57, respiration 18, pulse 81, temperature 98.1. HEENT: Head is normocephalic. NECK: Supple. HEART: Regular rate. LUNGS: Show diminished breath sounds at base. ABDOMEN: Soft, nontender to palpation. No rebound or guarding. EXTREMITIES: Negative for clubbing, cyanosis, edema. DERMATOLOGIC: No rashes. MUSCULOSKELETAL: No joint effusions. NEUROLOGIC: No change in exam. MEDICATIONS: Have been reviewed. LABORATORY DATA: Has been reviewed. No new labs. ASSESSMENT AND PLAN: 1. Right hip fracture status post open reduction internal fixation. The patient is currently stabl e. Continue PT, OT. 2. End-stage renal disease. Patient scheduled for dialysis today for 3 hours, 3K bath, calcium 2.5 . 3. Hypertension. Continue current blood pressure regimen. 4. Diabetes, continue Accu-Cheks and sliding scale. 5. Chronic pain syndrome. Continue current pain regimen. 6. Mineral bone disorder. Continue to monitor calcium and phosphorus levels. 7. Hypothyroidism. Continue Synthroid. 8. Cardiomyopathy. Continue current treatment plan. 9. History of peripheral vascular disease. 10. Herpes. The patient is status post acyclovir. 11. Gastrointestinal and deep venous thrombosis prophylaxis, continue proton pump inhibitor and hep mony. Dictated By: BRANDI CHANEY/NTS Conf#: [id number] DID#: [id number]
--- NOTE | 2016-07-24 11:52 | CONS ---
Date/Time of Note Date/Time of Note DATE: 07/24/16 TIME: 11:51 Consult Date/Type/Reason Admit Date/Time July 12, 2016 at 21:05 Type of Consultation: [facility] Ordering Provider: BRANDI ERICKSON DO Objective Vital Signs Date Time Temp Pulse Resp B/P Pulse Ox O2 Delivery O2 Flow Rate FiO2 07/23/16 20:00 98.1 81 18 112/57 96 Room Air Intake and Output 07/23/16 07/23/16 07/24/16 15:00 23:00 07:00 Intake Total 420 ml Balance 420 ml INTERDISCIPLINARY TEAM CONFERENCE BOWEL- Cont BLADDER-hemodyalysis SKIN- improving sacrum OT- DRESSING-sba/min BATHING-sba/min TOILETING-sba PT- BED MOBILITY-min TRANSFERS-min AMBULATION-min 30 feet A/P- Interdisciplinary team conference held today. Please see interdisciplinary sheet. Working toward d.c. on 07/26 with post discharge follow up of physical therapy, occupational therapy. Results/Medications Result Diagram: 07/21/16 0615 07/21/16 0826 Results 24 hrs Laboratory Tests Test 07/23/16 12:03 07/23/16 17:11 07/23/16 20:30 07/24/16 07:57 Bedside Glucose 141 114 101 79 Medications Current Medications Docusate Sodium (Colace) 100 mg BID PO Last administered on 07/24/16 08:49; Admin Dose 100 MG; Start 07/13/16 at 09:00 Senna (Senokot) 1 tab HS PO Last administered on 07/23/16 20:33; Admin Dose 1 TAB; Start 07/13/16 at 21:00 Atorvastatin Calcium (Lipitor) 80 mg DAILY@21 PO Last administered on 20:33; Admin Dose 80 MG; Start 07/12/16 at 23:15 Miscellaneous Information 1 ea NOTE XX ; Start 07/12/16 at 23:30 Glucose (Glutose) 15 gm Q15M PRN PO DECREASED GLUCOSE; Start 07/12/16 at 23:30 Glucose (Glutose) 22.5 gm Q15M PRN PO DECREASED GLUCOSE; Start 07/12/16 at 23:30 Dextrose (D50w Syringe) 25 ml Q15M PRN IV DECREASED GLUCOSE; Start 07/12/16 at 23:30 Dextrose (D50w Syringe) 50 ml Q15M PRN IV DECREASED GLUCOSE; Start 07/12/16 at 23:30 Glucagon (Glucagen) 1 mg Q15M PRN IM DECREASED GLUCOSE; Start 07/12/16 at 23:30 Glucose (Glutose) 15 gm Q15M PRN BUCCAL DECREASED GLUCOSE; Start 07/12/16 at 23: 30 Diagnostic Test (Pha) (Accu-Chek) 1 ea 02 XX ; Start 07/13/16 at 02:00 Bisacodyl (Dulcolax Supp) 10 mg DAILY PRN [place] CONSTIPATION; Start 07/12/16 at 23: 30 Escitalopram Oxalate (Lexapro) 10 mg DAILY PO Last administered on 07/24/16 08 :49; Admin Dose 10 MG; Start 07/13/16 at 09:00 Ferrous Sulfate (Ferrous Sulfate (Ec)) 325 mg DAILY PO Last administered on 08:49; Admin Dose 325 MG; Start 07/13/16 at 09:00 Gabapentin (Neurontin) 100 mg DAILY PO Last administered on 07/24/16 08:49; Admin Dose 100 MG; Start 07/13/16 at 09:00 Acetaminophen/ Hydrocodone Bitart ([place] (5/325)) 1 tab Q4H PRN PO PAIN Last administered on 07/20/16 09:59; Admin Dose 1 TAB; Start 07/12/16 at 23:30 Acetaminophen/ Hydrocodone Bitart ([place] (5/325)) 2 tab Q4H PRN PO PAIN; Start 07/12/16 at 23:30 Metoprolol Succinate (Toprol Xl) 25 mg DAILY PO Last administered on 07/23/16 08:21; Admin Dose 25 MG; Start 07/13/16 at 09:00 Morphine Sulfate (morphine) 2 mg Q4H PRN IV PAIN; Start 07/12/16 at 23:30 Multivit/Ca Carb/ B Cmplx/FA/Prenat ([place]ie-Roge) 1 tab DAILY PO Last administered on 07/24/16 08:49; Admin Dose 1 TAB; Start 07/13/16 at 09:00 Ondansetron HCl (Zofran Inj) 4 mg Q6H PRN IV NAUSEA AND/OR VOMITING Last administered on 07/21/16 11:25; Admin Dose 4 MG; Start 07/12/16 at 23:30 Polyethylene Glycol (Miralax) 17 gm DAILY PO Last administered on 07/24/16 08: 49; Admin Dose 17 GM; Start 07/13/16 at 09:00 Sodium Biphosphate/ Sodium Phosphate (Fleet Enema) 133 ml DAILY PRN [place] CONSTIPATION; Start 07/12/16 at 23:30 Heparin Sodium (Porcine) (Heparin (5000 Units/0.5 ml)) 5,000 unit BID SC Last administered on 07/24/16 08:56; Admin Dose 5,000 UNIT; Start 07/16/16 at 09:00 Pantoprazole (Protonix Tab) 40 mg BID@06,18 PO Last administered on 07/24/16 05:35; Admin Dose 40 MG; Start 07/16/16 at 18:00 Acyclovir (Zovirax) 200 mg BID PO Last administered on 07/24/16 08:49; Admin Dose 200 MG; Start 07/16/16 at 14:30 Hydralazine HCl (Apresoline) 10 mg TID PO Last administered on 07/23/16 20:33 ; Admin Dose 10 MG; Start 07/20/16 at 21:00 FAYE SAHNI MD July 24, 2016 11:52 ; Admin Dose 10 MG; Start 07/20/16 at 21:00 FAYE SAHNI MD July 24, 2016 11:52
--- NOTE | 2016-07-24 18:36 | CONS ---
Date/Time of Note Date/Time of Note DATE: 07/24/16 TIME: 18:34 Assessment/Plan Assessment/Plan Chief Complaint/Hosp Course IMPRESSION: 1. Preoperative evaluation prior to open reduction internal fixation of the right hip.-negative troponin x 3. Now Post-op s/p Hip ORIF 2. History of cardiomyopathy with decreased left ventricular ejection fraction , last known to be approximately 35% by echo February 2016 with a negative stress February 2016, revealing scar but no ischemia. Echo this admit EF 30-35% 3. History of permanent pacemaker implantation for bradyarrhythmias. 4. History of coronary artery disease, status post coronary bypass graft surgery. 5. Peripheral arterial disease status post relatively recent lower extremity bypass surgery. 6. End-stage renal disease on hemodialysis. 7. Diabetes mellitus. 8. Thyroid dysfunction. 9. Cardiomyopathy with decreased left ventricular ejection fraction. 10. Status post fall. 11. Hip fracture. 12. Arm swelling-Negative venous BLAYNE for DVT 07/07 14. Hyponatremia 15.HTN-well controlled Recc: -Tele -serial ecg's -Continue toprol/hydralazine as tolerated and follow BP closely -PT -HD for volume removal Problems: Consultation Date/Type/Reason Admit Date/Time July 12, 2016 at 21:05 Initial Consult Date 07/12/2016 Type of Consultation: Cardiology Reason for Consultation cardiomyopathy/CHF Referring Provider: BRANDI ERICKSON DO Exam/Review of Systems Vital Signs Vitals Vital Signs Date Time Temp Pulse Resp B/P Pulse Ox O2 Delivery O2 Flow Rate FiO2 07/24/16 17:30 71 07/24/16 17:30 18 07/24/16 08:00 97.7 113/81 96 Room Air Intake and Output 07/23/16 07/23/16 07/24/16 15:00 23:00 07:00 Intake Total 420 ml Balance 420 ml Exam Review of Systems: CONSTITUTIONAL: No fevers, chills. PULMONARY: No sob CARDIOVASCULAR: No chest pain/palpitations GASTROINTESTINAL: No nausea/vomiting. GENITOURINARY: No hematuria/dysuria. MUSCULOSKELETAL: No myagias/arthalgias. PSYCHIATRIC: The patient denies depression. NEUROLOGIC: No weakness Constitutional: alert Head: normocephalic ENMT: mucosa pink and moist Neck: jvd (9 cm water), supple Respiratory: clear to auscultation Cardiovascular: regular rate and rhythm Gastrointestinal: non-tender, soft Musculoskeletal: muscle weakness (mild generalized) Extremities: edema (none) Neurological: other (No focal deficits) Results Result Diagram: 07/21/16 0615 07/21/16 0826 Results 24 hrs Laboratory Tests Test 07/23/16 20:30 07/24/16 07:57 07/24/16 12:12 07/24/16 17:13 Bedside Glucose 101 79 123 172 Test 07/24/16 18:03 Bedside Glucose 153 Medications Medications Current Medications Docusate Sodium (Colace) 100 mg BID PO Last administered on 07/24/16 08:49; Admin Dose 100 MG; Start 07/13/16 at 09:00 Senna (Senokot) 1 tab HS PO Last administered on 07/23/16 20:33; Admin Dose 1 TAB; Start 07/13/16 at 21:00 Atorvastatin Calcium (Lipitor) 80 mg DAILY@21 PO Last administered on 20:33; Admin Dose 80 MG; Start 07/12/16 at 23:15 Miscellaneous Information 1 ea NOTE XX ; Start 07/12/16 at 23:30 Glucose (Glutose) 15 gm Q15M PRN PO DECREASED GLUCOSE; Start 07/12/16 at 23:30 Glucose (Glutose) 22.5 gm Q15M PRN PO DECREASED GLUCOSE; Start 07/12/16 at 23:30 Dextrose (D50w Syringe) 25 ml Q15M PRN IV DECREASED GLUCOSE; Start 07/12/16 at 23:30 Dextrose (D50w Syringe) 50 ml Q15M PRN IV DECREASED GLUCOSE; Start 07/12/16 at 23:30 Glucagon (Glucagen) 1 mg Q15M PRN IM DECREASED GLUCOSE; Start 07/12/16 at 23:30 Glucose (Glutose) 15 gm Q15M PRN BUCCAL DECREASED GLUCOSE; Start 07/12/16 at 23: 30 Diagnostic Test (Pha) (Accu-Chek) 1 ea 02 XX ; Start 07/13/16 at 02:00 Bisacodyl (Dulcolax Supp) 10 mg DAILY PRN [place] CONSTIPATION; Start 07/12/16 at 23: 30 Escitalopram Oxalate (Lexapro) 10 mg DAILY PO Last administered on 07/24/16 08 :49; Admin Dose 10 MG; Start 07/13/16 at 09:00 Ferrous Sulfate (Ferrous Sulfate (Ec)) 325 mg DAILY PO Last administered on 08:49; Admin Dose 325 MG; Start 07/13/16 at 09:00 Gabapentin (Neurontin) 100 mg DAILY PO Last administered on 07/24/16 08:49; Admin Dose 100 MG; Start 07/13/16 at 09:00 Acetaminophen/ Hydrocodone Bitart ([place] (5/325)) 1 tab Q4H PRN PO PAIN Last administered on 07/20/16 09:59; Admin Dose 1 TAB; Start 07/12/16 at 23:30 Acetaminophen/ Hydrocodone Bitart ([place] (5/325)) 2 tab Q4H PRN PO PAIN; Start 07/12/16 at 23:30 Metoprolol Succinate (Toprol Xl) 25 mg DAILY PO Last administered on 07/23/16 08:21; Admin Dose 25 MG; Start 07/13/16 at 09:00 Morphine Sulfate (morphine) 2 mg Q4H PRN IV PAIN; Start 07/12/16 at 23:30 Multivit/Ca Carb/ B Cmplx/FA/Prenat ([place]ie-Roge) 1 tab DAILY PO Last administered on 07/24/16 08:49; Admin Dose 1 TAB; Start 07/13/16 at 09:00 Ondansetron HCl (Zofran Inj) 4 mg Q6H PRN IV NAUSEA AND/OR VOMITING Last administered on 07/21/16 11:25; Admin Dose 4 MG; Start 07/12/16 at 23:30 Polyethylene Glycol (Miralax) 17 gm DAILY PO Last administered on 07/24/16 08: 49; Admin Dose 17 GM; Start 07/13/16 at 09:00 Sodium Biphosphate/ Sodium Phosphate (Fleet Enema) 133 ml DAILY PRN [place] CONSTIPATION; Start 07/12/16 at 23:30 Heparin Sodium (Porcine) (Heparin (5000 Units/0.5 ml)) 5,000 unit BID SC Last administered on 07/24/16 08:56; Admin Dose 5,000 UNIT; Start 07/16/16 at 09:00 Pantoprazole (Protonix Tab) 40 mg BID@18 PO Last administered on 07/24/16 18:04; Admin Dose 40 MG; Start 07/16/16 at 18:00 Acyclovir (Zovirax) 200 mg BID PO Last administered on 07/24/16 08:49; Admin Dose 200 MG; Start 07/16/16 at 14:30 Hydralazine HCl (Apresoline) 10 mg TID PO Last administered on 07/23/16 20:33 ; Admin Dose 10 MG; Start 07/20/16 at 21:00 YI RODRIGUEZ July 24, 2016 18:36
[2016-07-24] MEDS: EPOETIN 10000 UNITS/1 ML INJ (ESRD) SC SCH (18:37)
--- NOTE | 2016-07-24 18:42 | CONS ---
Date/Time of Note Date/Time of Note DATE: 07/24/16 TIME: 18:41 Assessment/Plan Assessment/Plan Chief Complaint/Hosp Course ANEMIA- COMPLEX, MULTIFACTORIAL MONITOR CLOSELY OBSERVE FOR BLEEDING AND HEMOLYSIS TRANSFUSE TO KEEP HB ABOVE 8 Right hip fracture status post open reduction internal fixation. The patient is currently stable. Continue PT, OT. End-stage renal disease. 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 The patient has been seen by Dr. Mesa. Started on acyclovir. Cultures have been sent. Will monitor. Hypertension. Continue current blood pressure regimen. Diabetes. Continue current insulin regimen. Cardiomyopathy, stable. Continue current medical management. Chronic pain syndrome. Continue current pain regimen. Hypothyroidism. Continue Synthroid. History of peripheral vascular disease. GI and deep vein thrombosis prophylaxis. Continue PPI and Lovenox. Problems: Consultation Date/Type/Reason Admit Date/Time July 12, 2016 at 21:05 [facility] Referring Provider: BRANDI ERICKSON DO 24 HR Interval Summary Free Text/Dictation The patient is stable, no acute events overnight. No fevers, chills, nausea, vomiting, shortness of breath. Exam/Review of Systems Vital Signs Vitals Vital Signs Date Time Temp Pulse Resp B/P Pulse Ox O2 Delivery O2 Flow Rate FiO2 07/24/16 17:30 71 07/24/16 17:30 18 07/24/16 08:00 97.7 113/81 96 Room Air Intake and Output 07/23/16 07/23/16 07/24/16 15:00 23:00 07:00 Intake Total 420 ml Balance 420 ml Exam HEENT: Head is normocephalic. NECK: Supple. HEART: Regular rate. LUNGS: Show diminished breath sounds at base. ABDOMEN: Soft, nontender to palpation. No rebound or guarding. EXTREMITIES: Negative for clubbing, cyanosis, edema. DERMATOLOGIC: No rashes. MUSCULOSKELETAL: No joint effusions. NEUROLOGIC: No change in exam. Results Result Diagram: 07/21/16 0615 07/21/16 0826 Results 24 hrs Laboratory Tests Test 07/23/16 20:30 07/24/16 07:57 07/24/16 12:12 07/24/16 17:13 Bedside Glucose 101 79 123 172 Test 07/24/16 18:03 Bedside Glucose 153 Medications Medications Current Medications Docusate Sodium (Colace) 100 mg BID PO Last administered on 07/24/16 08:49; Admin Dose 100 MG; Start 07/13/16 at 09:00 Senna (Senokot) 1 tab HS PO Last administered on 07/23/16 20:33; Admin Dose 1 TAB; Start 07/13/16 at 21:00 Atorvastatin Calcium (Lipitor) 80 mg DAILY@21 PO Last administered on 20:33; Admin Dose 80 MG; Start 07/12/16 at 23:15 Miscellaneous Information 1 ea NOTE XX ; Start 07/12/16 at 23:30 Glucose (Glutose) 15 gm Q15M PRN PO DECREASED GLUCOSE; Start 07/12/16 at 23:30 Glucose (Glutose) 22.5 gm Q15M PRN PO DECREASED GLUCOSE; Start 07/12/16 at 23:30 Dextrose (D50w Syringe) 25 ml Q15M PRN IV DECREASED GLUCOSE; Start 07/12/16 at 23:30 Dextrose (D50w Syringe) 50 ml Q15M PRN IV DECREASED GLUCOSE; Start 07/12/16 at 23:30 Glucagon (Glucagen) 1 mg Q15M PRN IM DECREASED GLUCOSE; Start 07/12/16 at 23:30 Glucose (Glutose) 15 gm Q15M PRN BUCCAL DECREASED GLUCOSE; Start 07/12/16 at 23: 30 Diagnostic Test (Pha) (Accu-Chek) 1 ea 02 XX ; Start 07/13/16 at 02:00 Bisacodyl (Dulcolax Supp) 10 mg DAILY PRN [place] CONSTIPATION; Start 07/12/16 at 23: 30 Escitalopram Oxalate (Lexapro) 10 mg DAILY PO Last administered on 07/24/16 08 :49; Admin Dose 10 MG; Start 07/13/16 at 09:00 Ferrous Sulfate (Ferrous Sulfate (Ec)) 325 mg DAILY PO Last administered on 08:49; Admin Dose 325 MG; Start 07/13/16 at 09:00 Gabapentin (Neurontin) 100 mg DAILY PO Last administered on 07/24/16 08:49; Admin Dose 100 MG; Start 07/13/16 at 09:00 Acetaminophen/ Hydrocodone Bitart ([place] (5/325)) 1 tab Q4H PRN PO PAIN Last administered on 07/20/16 09:59; Admin Dose 1 TAB; Start 07/12/16 at 23:30 Acetaminophen/ Hydrocodone Bitart ([place] (5/325)) 2 tab Q4H PRN PO PAIN; Start 07/12/16 at 23:30 Metoprolol Succinate (Toprol Xl) 25 mg DAILY PO Last administered on 07/23/16 08:21; Admin Dose 25 MG; Start 07/13/16 at 09:00 Morphine Sulfate (morphine) 2 mg Q4H PRN IV PAIN; Start 07/12/16 at 23:30 Multivit/Ca Carb/ B Cmplx/FA/Prenat ([place]ie-Roge) 1 tab DAILY PO Last administered on 07/24/16 08:49; Admin Dose 1 TAB; Start 07/13/16 at 09:00 Ondansetron HCl (Zofran Inj) 4 mg Q6H PRN IV NAUSEA AND/OR VOMITING Last administered on 07/21/16 11:25; Admin Dose 4 MG; Start 07/12/16 at 23:30 Polyethylene Glycol (Miralax) 17 gm DAILY PO Last administered on 07/24/16 08: 49; Admin Dose 17 GM; Start 07/13/16 at 09:00 Sodium Biphosphate/ Sodium Phosphate (Fleet Enema) 133 ml DAILY PRN [place] CONSTIPATION; Start 07/12/16 at 23:30 Heparin Sodium (Porcine) (Heparin (5000 Units/0.5 ml)) 5,000 unit BID SC Last administered on 07/24/16 08:56; Admin Dose 5,000 UNIT; Start 07/16/16 at 09:00 Pantoprazole (Protonix Tab) 40 mg BID@06,18 PO Last administered on 07/24/16 18:04; Admin Dose 40 MG; Start 07/16/16 at 18:00 Acyclovir (Zovirax) 200 mg BID PO Last administered on 07/24/16 08:49; Admin Dose 200 MG; Start 07/16/16 at 14:30 Hydralazine HCl (Apresoline) 10 mg TID PO Last administered on 07/23/16 20:33 ; Admin Dose 10 MG; Start 07/20/16 at 21:00 FABY HORN MD July 24, 2016 18:42
[2016-07-24] MEDS: ATORVASTATIN 80 MG TAB PO SCH (20:07)
[2016-07-24] MEDS: SENNA TAB PO SCH (21:00)
[2016-07-25] MEDS: ACCUCHECK AT 2AM (Patients on SS coverage) XX SCH (02:00)
[2016-07-25] MEDS: LEVOTHYROXINE 88 MCG TAB PO SCH (06:08)
[2016-07-25] MEDS: PANTOPRAZOLE (EC) 40 MG TAB PO SCH ×2 (06:08→18:00)
[2016-07-25 06:40] LABS: ADD SCAN DIFF NO
[2016-07-25 06:45] LABS: ABNORMAL IP MESSAGE 1; BASOPHILS % 0.4 % (0.0-2.0); EOSINOPHILS # 0.1 10^3/ul (0.0-0.5); EOSINOPHILS % 0.9 % (0.0-7.0); HEMATOCRIT 32.2 % (37.0-47.0); HEMOGLOBIN 10.1 g/dl (12.0-16.0); LYMPHOCYTES % 16.8 % (15.0-51.0); MEAN CORPUSCULAR HEMOGLOBIN 30.1 pg (29.0-33.0); MEAN CORPUSCULAR HGB CONC 31.4 g/dl (32.0-37.0); MEAN CORPUSCULAR VOLUME 96.1 fl (82.0-101.0); MEAN PLATELET VOLUME 9.8 fl (7.4-10.4); MONOCYTE # 0.6 10^3/ul (0.3-0.9); MONOCYTES % 11.3 % (0.0-11.0); NEUTROPHILS % 70.1 % (39.0-77.0); NUCLEATED RED BLOOD CELLS% 0.5 /100WBC (0.0-0.0); PLATELET COUNT 96 10^3/UL (140-415); RED BLOOD COUNT 3.35 10^6/ul (4.20-5.40); RED CELL DISTRIBUTION WIDTH 16.6 % (11.5-14.5); WHITE BLOOD COUNT 5.6 10^3/ul (4.8-10.8)
[2016-07-25] MEDS: Insulin NOVOLOG SS MILD Algorithm (SS with meals and bedtime) SC SCH ×4 (07:35→21:00)
[2016-07-25 07:42] VITALS: BP 108/51; RESP 18
[2016-07-25] MEDS: REPAGLINIDE 1 MG TAB PO SCH ×3 (08:46→18:36)
[2016-07-25] MEDS: ACYCLOVIR 200 MG CAP PO SCH ×2 (08:46→20:17)
[2016-07-25] MEDS: SEVELAMER CARBONATE 0.8 GM PKT PO SCH ×3 (08:47→18:34)
[2016-07-25] MEDS: GABAPENTIN 100 MG CAP PO SCH (08:47)
[2016-07-25] MEDS: DOCUSATE SODIUM 100 MG CAP PO SCH ×2 (08:48→20:17)
[2016-07-25] MEDS: MULTIVIT/CA CARB/B CMPLX/FA TAB PO SCH (08:48)
[2016-07-25] MEDS: POLYETHYLENE GLYCOL 17 GM PACKET PO SCH (08:48)
[2016-07-25] MEDS: ESCITALOPRAM 10 MG TAB PO SCH (08:48)
[2016-07-25] MEDS: FERROUS SULFATE (EC) 325 MG TAB PO SCH (08:48)
[2016-07-25] MEDS: METOPROLOL (XL) 25 MG TAB PO SCH (08:48)
[2016-07-25] MEDS: HEPARIN 5,000 UNIT/0.5 ML VIAL SC SCH ×2 (08:50→20:25)
--- NOTE | 2016-07-25 10:02 | CONS ---
Date/Time of Note Date/Time of Note DATE: 07/25/16 TIME: 10:00 Assessment/Plan Assessment/Plan Additional Assessment/Plan 1. Preoperative evaluation prior to open reduction internal fixation of the right hip.-negative troponin x 3. Now Post-op s/p Hip ORIF - better with rehab, feels weak, but compliant 2. History of cardiomyopathy with decreased left ventricular ejection fraction , last known to be approximately 35% by echo February 2016 with a negative stress February 2016, revealing scar but no ischemia. Echo this admit EF 30-35% 3. History of permanent pacemaker implantation for bradyarrhythmias- good pacer function 4. History of coronary artery disease, status post coronary bypass graft surgery. 5. Peripheral arterial disease status post relatively recent lower extremity bypass surgery. 6. End-stage renal disease on hemodialysis- HD as needed per renal team. 7. Diabetes mellitus. 8. Thyroid dysfunction. 9. Cardiomyopathy with decreased left ventricular ejection fraction- euvolemic by exam. 10. Status post fall. 11. Hip fracture. 12. Arm swelling-Negative venous BLAYNE for DVT 07/07 14. Hyponatremia 15.HTN-well controlled Consultation Date/Type/Reason Admit Date/Time July 12, 2016 at 21:05 Type of Consultation: [facility] Referring Provider: BRANDI ERICKSON DO 24 HR Interval Summary Free Text/Dictation No acute events - BP in good range - will monitor clinically, better with rehab , feels weak, but compliant ROS: No fever, no chills, no nausea, no vomiting, no diarrhea/constipation No recent weight changes No chest pain, no PND, no orthopnea No dizziness, blurred vision No thirst, no heat or cold intolerance Exam/Review of Systems Vital Signs Vitals Vital Signs Date Time Temp Pulse Resp B/P Pulse Ox O2 Delivery O2 Flow Rate FiO2 07/25/16 07:42 97.9 76 18 108/51 96 07/24/16 08:00 Room Air Intake and Output 07/24/16 07/24/16 07/25/16 14:59 22:59 06:59 Intake Total 300 ml 300 ml Output Total 4650 ml Balance -4350 ml 300 ml Exam General: WN/WD/NAD, AOx 3 HEENT: Unicetric/atraumatic/EOMI (follows commands) NECK: JVD elevated, no thyromegaly Lymph: no lymphadenopathy HEART: regular with no S3, II/ systolic murmur at apex, pacer LUNGS: Coarse sounds ABD: soft, NT, ND, +BS : Intact Neuro: non focal SKIN: chronic changes EXT: trace edema Results Result Diagram: 07/25/16 0608 07/21/16 0826 Results 24 hrs Laboratory Tests Test 07/24/16 12:12 07/24/16 17:13 07/24/16 18:03 07/24/16 20:06 Bedside Glucose 123 172 153 166 Test 07/25/16 06:08 07/25/16 08:31 White Blood Count 5.6 # Red Blood Count 3.35 L Hemoglobin 10.1 L Hematocrit 32.2 L Mean Corpuscular Volume 96.1 Mean Corpuscular Hemoglobin 30.1 Mean Corpuscular Hemoglobin Concent 31.4 L Red Cell Distribution Width 16.6 H Platelet Count 96 #L Mean Platelet Volume 9.8 Neutrophils % 70.1 Lymphocytes % 16.8 Monocytes % 11.3 H Eosinophils % 0.9 Basophils % 0.4 Nucleated Red Blood Cells % 0.5 H Neutrophils # 4.0 Lymphocytes # 1.0 Monocytes # 0.6 Eosinophils # 0.1 Basophils # 0.0 Nucleated Red Blood Cells # 0.0 Bedside Glucose 102 Medications Medications Current Medications Docusate Sodium (Colace) 100 mg BID PO Last administered on 07/25/16 08:48; Admin Dose 100 MG; Start 07/13/16 at 09:00 Senna (Senokot) 1 tab HS PO Last administered on 07/23/16 20:33; Admin Dose 1 TAB; Start 07/13/16 at 21:00 Atorvastatin Calcium (Lipitor) 80 mg DAILY@21 PO Last administered on 20:07; Admin Dose 80 MG; Start 07/12/16 at 23:15 Miscellaneous Information 1 ea NOTE XX ; Start 07/12/16 at 23:30 Glucose (Glutose) 15 gm Q15M PRN PO DECREASED GLUCOSE; Start 07/12/16 at 23:30 Glucose (Glutose) 22.5 gm Q15M PRN PO DECREASED GLUCOSE; Start 07/12/16 at 23:30 Dextrose (D50w Syringe) 25 ml Q15M PRN IV DECREASED GLUCOSE; Start 07/12/16 at 23:30 Dextrose (D50w Syringe) 50 ml Q15M PRN IV DECREASED GLUCOSE; Start 07/12/16 at 23:30 Glucagon (Glucagen) 1 mg Q15M PRN IM DECREASED GLUCOSE; Start 07/12/16 at 23:30 Glucose (Glutose) 15 gm Q15M PRN BUCCAL DECREASED GLUCOSE; Start 07/12/16 at 23: 30 Diagnostic Test (Pha) (Accu-Chek) 1 ea 02 XX ; Start 07/13/16 at 02:00 Bisacodyl (Dulcolax Supp) 10 mg DAILY PRN [place] CONSTIPATION; Start 07/12/16 at 23: 30 Escitalopram Oxalate (Lexapro) 10 mg DAILY PO Last administered on 07/25/16 08 :48; Admin Dose 10 MG; Start 07/13/16 at 09:00 Ferrous Sulfate (Ferrous Sulfate (Ec)) 325 mg DAILY PO Last administered on 08:48; Admin Dose 325 MG; Start 07/13/16 at 09:00 Gabapentin (Neurontin) 100 mg DAILY PO Last administered on 07/25/16 08:47; Admin Dose 100 MG; Start 07/13/16 at 09:00 Acetaminophen/ Hydrocodone Bitart ([place] (5/325)) 1 tab Q4H PRN PO PAIN Last administered on 07/20/16 09:59; Admin Dose 1 TAB; Start 07/12/16 at 23:30 Acetaminophen/ Hydrocodone Bitart ([place] (5/325)) 2 tab Q4H PRN PO PAIN; Start 07/12/16 at 23:30 Metoprolol Succinate (Toprol Xl) 25 mg DAILY PO Last administered on 07/23/16 08:21; Admin Dose 25 MG; Start 07/13/16 at 09:00 Morphine Sulfate (morphine) 2 mg Q4H PRN IV PAIN; Start 07/12/16 at 23:30 Multivit/Ca Carb/ B Cmplx/FA/Prenat ([place]Roge) 1 tab DAILY PO Last administered on 07/25/16 08:48; Admin Dose 1 TAB; Start 07/13/16 at 09:00 Ondansetron HCl (Zofran Inj) 4 mg Q6H PRN IV NAUSEA AND/OR VOMITING Last administered on 07/21/16 11:25; Admin Dose 4 MG; Start 07/12/16 at 23:30 Polyethylene Glycol (Miralax) 17 gm DAILY PO Last administered on 07/25/16 08: 48; Admin Dose 17 GM; Start 07/13/16 at 09:00 Sodium Biphosphate/ Sodium Phosphate (Fleet Enema) 133 ml DAILY PRN [place] CONSTIPATION; Start 07/12/16 at 23:30 Heparin Sodium (Porcine) (Heparin (5000 Units/0.5 ml)) 5,000 unit BID SC Last administered on 07/25/16 08:50; Admin Dose 5,000 UNIT; Start 07/16/16 at 09:00 Pantoprazole (Protonix Tab) 40 mg BID@06,18 PO Last administered on 07/25/16 06:08; Admin Dose 40 MG; Start 07/16/16 at 18:00 Acyclovir (Zovirax) 200 mg BID PO Last administered on 07/25/16 08:46; Admin Dose 200 MG; Start 07/16/16 at 14:30 Hydralazine HCl (Apresoline) 10 mg TID PO Last administered on 07/23/16 20:33 ; Admin Dose 10 MG; Start 07/20/16 at 21:00 PEDRO LUIS HUTTON MD July 25, 2016 10:02
--- NOTE | 2016-07-25 11:16 | PN ---
DATE: 07/25/2016 SUBJECTIVE: The patient is stable. No events overnight. No fevers, chills, nausea, vomiting. The patient had hemodialysis yesterday, tolerated it well. OBJECTIVE: VITAL SIGNS: Blood pressure 108/51, respirations 18, pulse 56, temperature 97.9. HEENT: Head is normocephalic. NECK: Supple. HEART: Regular rate. LUNGS: Show diminished breath sounds at the bases. ABDOMEN: Soft, nontender to palpation. No rebound or guarding. EXTREMITIES: Negative for clubbing, cyanosis. No edema. DERMATOLOGIC: No rashes. MUSCULOSKELETAL: No joint effusions. NEUROLOGIC: No change in exam. MEDICATIONS: The patient's medications have been reviewed. LABORATORY DATA: Shows white count 5.6, hemoglobin 10.1, hematocrit 32.2, platelet count is 96. ASSESSMENT AND PLAN: 1. Right hip fracture, status post open reduction internal fixation. The patient is currently stab le. Continue PT, OT. 2. End-stage renal disease. The patient had hemodialysis yesterday, tolerated it well. Plan for n ext dialysis on Sunday. 3. Hypertension. Continue current blood pressure regimen. 4. Diabetes. Continue Accu-Cheks and insulin sliding scale. 5. Chronic pain syndrome. Continue current pain regimen. 6. Mineral bone disorder. Continue to monitor calcium and phosphorus levels. 7. Hypothyroidism. Continue Synthroid. 8. Cardiomyopathy. Continue current treatment plan. 9. History of peripheral vascular disease. 10. Herpes. The patient is completing acyclovir. 11. Gastrointestinal and deep venous thrombosis prophylaxis. Continue proton pump inhibitor and h eparin. Dictated By: BRANDI CHANEY/ANA Conf#: [id number] DID#: [id number]
--- NOTE | 2016-07-25 11:27 | CONS ---
Date/Time of Note Date/Time of Note DATE: 07/25/16 TIME: 11:27 Consult Date/Type/Reason Admit Date/Time July 12, 2016 at 21:05 Type of Consultation: [facility] Ordering Provider: BRANDI ERICKSON DO Objective Vital Signs Date Time Temp Pulse Resp B/P Pulse Ox O2 Delivery O2 Flow Rate FiO2 07/25/16 07:42 97.9 76 18 108/51 96 07/24/16 08:00 Room Air Intake and Output 07/24/16 07/24/16 07/25/16 15:00 23:00 07:00 Intake Total 300 ml 300 ml Output Total 4650 ml Balance -4350 ml 300 ml Results/Medications Result Diagram: 07/25/16 0608 07/21/16 0826 Results 24 hrs Laboratory Tests Test 07/24/16 12:12 07/24/16 17:13 07/24/16 18:03 07/24/16 20:06 Bedside Glucose 123 172 153 166 Test 07/25/16 06:08 07/25/16 08:31 07/25/16 10:54 White Blood Count 5.6 # Red Blood Count 3.35 L Hemoglobin 10.1 L Hematocrit 32.2 L Mean Corpuscular Volume 96.1 Mean Corpuscular Hemoglobin 30.1 Mean Corpuscular Hemoglobin Concent 31.4 L Red Cell Distribution Width 16.6 H Platelet Count 96 #L Mean Platelet Volume 9.8 Neutrophils % 70.1 Lymphocytes % 16.8 Monocytes % 11.3 H Eosinophils % 0.9 Basophils % 0.4 Nucleated Red Blood Cells % 0.5 H Neutrophils # 4.0 Lymphocytes # 1.0 Monocytes # 0.6 Eosinophils # 0.1 Basophils # 0.0 Nucleated Red Blood Cells # 0.0 Bedside Glucose 102 130 Medications Current Medications Docusate Sodium (Colace) 100 mg BID PO Last administered on 07/25/16 08:48; Admin Dose 100 MG; Start 07/13/16 at 09:00 Senna (Senokot) 1 tab HS PO Last administered on 07/23/16 20:33; Admin Dose 1 TAB; Start 07/13/16 at 21:00 Atorvastatin Calcium (Lipitor) 80 mg DAILY@21 PO Last administered on 20:07; Admin Dose 80 MG; Start 07/12/16 at 23:15 Miscellaneous Information 1 ea NOTE XX ; Start 07/12/16 at 23:30 Glucose (Glutose) 15 gm Q15M PRN PO DECREASED GLUCOSE; Start 07/12/16 at 23:30 Glucose (Glutose) 22.5 gm Q15M PRN PO DECREASED GLUCOSE; Start 07/12/16 at 23:30 Dextrose (D50w Syringe) 25 ml Q15M PRN IV DECREASED GLUCOSE; Start 07/12/16 at 23:30 Dextrose (D50w Syringe) 50 ml Q15M PRN IV DECREASED GLUCOSE; Start 07/12/16 at 23:30 Glucagon (Glucagen) 1 mg Q15M PRN IM DECREASED GLUCOSE; Start 07/12/16 at 23:30 Glucose (Glutose) 15 gm Q15M PRN BUCCAL DECREASED GLUCOSE; Start 07/12/16 at 23: 30 Diagnostic Test (Pha) (Accu-Chek) 1 ea 02 XX ; Start 07/13/16 at 02:00 Bisacodyl (Dulcolax Supp) 10 mg DAILY PRN [place] CONSTIPATION; Start 07/12/16 at 23: 30 Escitalopram Oxalate (Lexapro) 10 mg DAILY PO Last administered on 07/25/16 08 :48; Admin Dose 10 MG; Start 07/13/16 at 09:00 Ferrous Sulfate (Ferrous Sulfate (Ec)) 325 mg DAILY PO Last administered on 08:48; Admin Dose 325 MG; Start 07/13/16 at 09:00 Gabapentin (Neurontin) 100 mg DAILY PO Last administered on 07/25/16 08:47; Admin Dose 100 MG; Start 07/13/16 at 09:00 Acetaminophen/ Hydrocodone Bitart ([place] (5/325)) 1 tab Q4H PRN PO PAIN Last administered on 07/20/16 09:59; Admin Dose 1 TAB; Start 07/12/16 at 23:30 Acetaminophen/ Hydrocodone Bitart ([place] (5/325)) 2 tab Q4H PRN PO PAIN; Start 07/12/16 at 23:30 Metoprolol Succinate (Toprol Xl) 25 mg DAILY PO Last administered on 07/23/16 08:21; Admin Dose 25 MG; Start 07/13/16 at 09:00 Morphine Sulfate (morphine) 2 mg Q4H PRN IV PAIN; Start 07/12/16 at 23:30 Multivit/Ca Carb/ B Cmplx/FA/Prenat (Billie-Roge) 1 tab DAILY PO Last administered on 07/25/16 08:48; Admin Dose 1 TAB; Start 07/13/16 at 09:00 Ondansetron HCl (Zofran Inj) 4 mg Q6H PRN IV NAUSEA AND/OR VOMITING Last administered on 07/21/16 11:25; Admin Dose 4 MG; Start 07/12/16 at 23:30 Polyethylene Glycol (Miralax) 17 gm DAILY PO Last administered on 07/25/16 08: 48; Admin Dose 17 GM; Start 07/13/16 at 09:00 Sodium Biphosphate/ Sodium Phosphate (Fleet Enema) 133 ml DAILY PRN [place] CONSTIPATION; Start 07/12/16 at 23:30 Heparin Sodium (Porcine) (Heparin (5000 Units/0.5 ml)) 5,000 unit BID SC Last administered on 07/25/16 08:50; Admin Dose 5,000 UNIT; Start 07/16/16 at 09:00 Pantoprazole (Protonix Tab) 40 mg BID@06,18 PO Last administered on 07/25/16 06:08; Admin Dose 40 MG; Start 07/16/16 at 18:00 Acyclovir (Zovirax) 200 mg BID PO Last administered on 07/25/16 08:46; Admin Dose 200 MG; Start 07/16/16 at 14:30 Hydralazine HCl (Apresoline) 10 mg TID PO Last administered on 07/23/16 20:33 ; Admin Dose 10 MG; Start 07/20/16 at 21:00 FAYE SAHNI MD July 25, 2016 11:27
[2016-07-25 12:27] VITALS: BP 119/55; RESP 18
[2016-07-25 20:00] VITALS: BP 142/63; RESP 18
[2016-07-25] MEDS: ATORVASTATIN 80 MG TAB PO SCH (20:17)
--- NOTE | 2016-07-25 20:59 | CONS ---
Date/Time of Note Date/Time of Note DATE: 07/25/16 TIME: 20:59 Assessment/Plan Assessment/Plan Chief Complaint/Hosp Course ANEMIA- COMPLEX, MULTIFACTORIAL MONITOR CLOSELY OBSERVE FOR BLEEDING AND HEMOLYSIS TRANSFUSE TO KEEP HB ABOVE 8 Right hip fracture status post open reduction internal fixation. The patient is currently stable. Continue PT, OT. End-stage renal disease. 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 The patient has been seen by Dr. Mesa. Started on acyclovir. Cultures have been sent. Will monitor. Hypertension. Continue current blood pressure regimen. Diabetes. Continue current insulin regimen. Cardiomyopathy, stable. Continue current medical management. Chronic pain syndrome. Continue current pain regimen. Hypothyroidism. Continue Synthroid. History of peripheral vascular disease. GI and deep vein thrombosis prophylaxis. Continue PPI and Lovenox. Problems: Consultation Date/Type/Reason Admit Date/Time July 12, 2016 at 21:05 Type of Consultation: [facility] Referring Provider: BRANDI ERICKSON DO 24 HR Interval Summary Free Text/Dictation The patient is stable. No events overnight. No fevers, chills, nausea, vomiting. The patient had hemodialysis yesterday, tolerated it well. Exam/Review of Systems Vital Signs Vitals Vital Signs Date Time Temp Pulse Resp B/P Pulse Ox O2 Delivery O2 Flow Rate FiO2 07/25/16 12:27 18 119/55 96 Room Air 07/25/16 07:42 97.9 76 Intake and Output 07/24/16 07/24/16 07/25/16 15:00 23:00 07:00 Intake Total 300 ml 300 ml Output Total 4650 ml Balance -4350 ml 300 ml Exam HEENT: Head is normocephalic. NECK: Supple. HEART: Regular rate. LUNGS: Show diminished breath sounds at the bases. ABDOMEN: Soft, nontender to palpation. No rebound or guarding. EXTREMITIES: Negative for clubbing, cyanosis. No edema. DERMATOLOGIC: No rashes. MUSCULOSKELETAL: No joint effusions. NEUROLOGIC: No change in exam. Results Result Diagram: 07/25/16 0608 07/21/16 0826 Results 24 hrs Laboratory Tests Test 07/25/16 06:08 07/25/16 08:31 07/25/16 10:54 07/25/16 20:21 White Blood Count 5.6 # Red Blood Count 3.35 L Hemoglobin 10.1 L Hematocrit 32.2 L Mean Corpuscular Volume 96.1 Mean Corpuscular Hemoglobin 30.1 Mean Corpuscular Hemoglobin Concent 31.4 L Red Cell Distribution Width 16.6 H Platelet Count 96 #L Mean Platelet Volume 9.8 Neutrophils % 70.1 Lymphocytes % 16.8 Monocytes % 11.3 H Eosinophils % 0.9 Basophils % 0.4 Nucleated Red Blood Cells % 0.5 H Neutrophils # 4.0 Lymphocytes # 1.0 Monocytes # 0.6 Eosinophils # 0.1 Basophils # 0.0 Nucleated Red Blood Cells # 0.0 Bedside Glucose 102 130 149 Medications Medications Current Medications Docusate Sodium (Colace) 100 mg BID PO Last administered on 07/25/16 20:17; Admin Dose 100 MG; Start 07/13/16 at 09:00 Senna (Senokot) 1 tab HS PO Last administered on 07/23/16 20:33; Admin Dose 1 TAB; Start 07/13/16 at 21:00 Atorvastatin Calcium (Lipitor) 80 mg DAILY@21 PO Last administered on 20:17; Admin Dose 80 MG; Start 07/12/16 at 23:15 Miscellaneous Information 1 ea NOTE XX ; Start 07/12/16 at 23:30 Glucose (Glutose) 15 gm Q15M PRN PO DECREASED GLUCOSE; Start 07/12/16 at 23:30 Glucose (Glutose) 22.5 gm Q15M PRN PO DECREASED GLUCOSE; Start 07/12/16 at 23:30 Dextrose (D50w Syringe) 25 ml Q15M PRN IV DECREASED GLUCOSE; Start 07/12/16 at 23:30 Dextrose (D50w Syringe) 50 ml Q15M PRN IV DECREASED GLUCOSE; Start 07/12/16 at 23:30 Glucagon (Glucagen) 1 mg Q15M PRN IM DECREASED GLUCOSE; Start 07/12/16 at 23:30 Glucose (Glutose) 15 gm Q15M PRN BUCCAL DECREASED GLUCOSE; Start 07/12/16 at 23: 30 Diagnostic Test (Pha) (Accu-Chek) 1 ea 02 XX ; Start 07/13/16 at 02:00 Bisacodyl (Dulcolax Supp) 10 mg DAILY PRN [place] CONSTIPATION; Start 07/12/16 at 23: 30 Escitalopram Oxalate (Lexapro) 10 mg DAILY PO Last administered on 07/25/16 08 :48; Admin Dose 10 MG; Start 07/13/16 at 09:00 Ferrous Sulfate (Ferrous Sulfate (Ec)) 325 mg DAILY PO Last administered on 08:48; Admin Dose 325 MG; Start 07/13/16 at 09:00 Gabapentin (Neurontin) 100 mg DAILY PO Last administered on 07/25/16 08:47; Admin Dose 100 MG; Start 07/13/16 at 09:00 Acetaminophen/ Hydrocodone Bitart ([place] (5/325)) 1 tab Q4H PRN PO PAIN Last administered on 07/20/16 09:59; Admin Dose 1 TAB; Start 07/12/16 at 23:30 Acetaminophen/ Hydrocodone Bitart ([place] (5/325)) 2 tab Q4H PRN PO PAIN; Start 07/12/16 at 23:30 Metoprolol Succinate (Toprol Xl) 25 mg DAILY PO Last administered on 07/23/16 08:21; Admin Dose 25 MG; Start 07/13/16 at 09:00 Morphine Sulfate (morphine) 2 mg Q4H PRN IV PAIN; Start 07/12/16 at 23:30 Multivit/Ca Carb/ B Cmplx/FA/Prenat (Billie-Roge) 1 tab DAILY PO Last administered on 07/25/16 08:48; Admin Dose 1 TAB; Start 07/13/16 at 09:00 Ondansetron HCl (Zofran Inj) 4 mg Q6H PRN IV NAUSEA AND/OR VOMITING Last administered on 07/21/16 11:25; Admin Dose 4 MG; Start 07/12/16 at 23:30 Polyethylene Glycol (Miralax) 17 gm DAILY PO Last administered on 07/25/16 08: 48; Admin Dose 17 GM; Start 07/13/16 at 09:00 Sodium Biphosphate/ Sodium Phosphate (Fleet Enema) 133 ml DAILY PRN [place] CONSTIPATION; Start 07/12/16 at 23:30 Heparin Sodium (Porcine) (Heparin (5000 Units/0.5 ml)) 5,000 unit BID SC Last administered on 07/25/16 20:25; Admin Dose 5,000 UNIT; Start 07/16/16 at 09:00 Pantoprazole (Protonix Tab) 40 mg BID@18 PO Last administered on 07/25/16 06:08; Admin Dose 40 MG; Start 07/16/16 at 18:00 Acyclovir (Zovirax) 200 mg BID PO Last administered on 07/25/16 20:17; Admin Dose 200 MG; Start 07/16/16 at 14:30 Hydralazine HCl (Apresoline) 10 mg TID PO Last administered on 07/23/16 20:33 ; Admin Dose 10 MG; Start 07/20/16 at 21:00 FABY HORN MD July 25, 2016 20:59
[2016-07-25] MEDS: SENNA TAB PO SCH (21:00)
[2016-07-26] MEDS: ACCUCHECK AT 2AM (Patients on SS coverage) XX SCH (02:00)
[2016-07-26] MEDS: PANTOPRAZOLE (EC) 40 MG TAB PO SCH (06:18)
[2016-07-26] MEDS: LEVOTHYROXINE 88 MCG TAB PO SCH (06:18)
[2016-07-26] MEDS: REPAGLINIDE 1 MG TAB PO SCH ×2 (07:30→11:58)
[2016-07-26] MEDS: Insulin NOVOLOG SS MILD Algorithm (SS with meals and bedtime) SC SCH ×2 (07:35→12:00)
[2016-07-26 07:41] VITALS: BP 138/63; RESP 18
[2016-07-26] MEDS: SEVELAMER CARBONATE 0.8 GM PKT PO SCH ×2 (08:45→11:59)
[2016-07-26] MEDS: FERROUS SULFATE (EC) 325 MG TAB PO SCH (08:46)
[2016-07-26] MEDS: HEPARIN 5,000 UNIT/0.5 ML VIAL SC SCH (08:46)
[2016-07-26] MEDS: ESCITALOPRAM 10 MG TAB PO SCH (08:47)
[2016-07-26] MEDS: ACYCLOVIR 200 MG CAP PO SCH (08:47)
[2016-07-26] MEDS: MULTIVIT/CA CARB/B CMPLX/FA TAB PO SCH (08:47)
[2016-07-26] MEDS: METOPROLOL (XL) 25 MG TAB PO SCH (08:48)
[2016-07-26] MEDS: POLYETHYLENE GLYCOL 17 GM PACKET PO SCH (08:48)
[2016-07-26] MEDS: DOCUSATE SODIUM 100 MG CAP PO SCH (08:48)
[2016-07-26] MEDS: GABAPENTIN 100 MG CAP PO SCH (08:48)
[2016-07-26 12:03] VITALS: BP 120/58; PULSE 75; RESP 18
--- NOTE | 2016-07-26 12:11 | PN ---
DATE: 07/26/2016 SUBJECTIVE: The patient is stable, no events overnight. No fever, chills, nausea or vomiting. OBJECTIVE: VITAL SIGNS: Blood pressure 138/63, respiration 18, pulse 78, temperature 98.8. HEENT: Head is normocephalic. NECK: Supple. HEART: Regular rate. LUNGS: Show diminished breath sounds at base. ABDOMEN: Soft and nontender to palpation. No rebound or guarding. EXTREMITIES: Negative for clubbing, cyanosis, no edema. DERMATOLOGIC: No rashes. MUSCULOSKELETAL: No joint effusions. NEUROLOGIC: No change in exam. MEDICATIONS: The patient's medications have been reviewed. LABORATORY DATA: Have been reviewed. ASSESSMENT AND PLAN: 1. Right hip fracture, status open reduction internal fixation. The patient currently stable. Cont inue PT, OT. 2. End stage renal disease. The patient is on dialysis Sunday and Sunday. Anticipate next dialysis on Sunday. 3. Hypertension. Continue current blood pressure regimen. 4. Diabetes. Continue Accu-Cheks, insulin sliding scale. 5. Chronic pain syndrome. Continue current pain regimen. 6. Mineral bone disorder. Continue to monitor calcium and phosphorus levels. 7. Hyperthyroidism. Continue Synthroid. 8. Cardiomyopathy. Continue current treatment. 9. History of peripheral vascular disease. 10. ____ . Patient is completing course of acyclovir. 11. Gastrointestinal and deep venous thrombosis prophylaxis. Continue proton pump inhibitor and he bashir. Dictated By: BRANDI CHANEY/ANA Conf#: [id number] DID#: [id number]
--- NOTE | 2016-07-26 21:58 | CONS ---
Date/Time of Note Date/Time of Note DATE: 07/26/16 TIME: 21:57 Assessment/Plan Assessment/Plan Chief Complaint/Hosp Course ANEMIA- COMPLEX, MULTIFACTORIAL MONITOR CLOSELY OBSERVE FOR BLEEDING AND HEMOLYSIS TRANSFUSE TO KEEP HB ABOVE 8 Right hip fracture status post open reduction internal fixation. The patient is currently stable. Continue PT, OT. End-stage renal disease. 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 The patient has been seen by Dr. Mesa. Started on acyclovir. Cultures have been sent. Will monitor. Hypertension. Continue current blood pressure regimen. Diabetes. Continue current insulin regimen. Cardiomyopathy, stable. Continue current medical management. Chronic pain syndrome. Continue current pain regimen. Hypothyroidism. Continue Synthroid. History of peripheral vascular disease. GI and deep vein thrombosis prophylaxis. Continue PPI and Lovenox. ok to transfer to snf Problems: Consultation Date/Type/Reason Admit Date/Time July 12, 2016 at 21:05 Type of Consultation: [facility] Referring Provider: BRANDI ERICKSON DO 24 HR Interval Summary Free Text/Dictation doing ok going to [facility] today Exam/Review of Systems Vital Signs Vitals Vital Signs Date Time Temp Pulse Resp B/P Pulse Ox O2 Delivery O2 Flow Rate FiO2 07/26/16 12:03 75 18 120/58 96 Room Air 07/26/16 07:41 98.8 Intake and Output 07/25/16 07/25/16 07/26/16 15:00 23:00 07:00 Intake Total 720 ml 360 ml 900 ml Balance 720 ml 360 ml 900 ml Exam HEENT: Head is normocephalic. NECK: Supple. HEART: Regular rate. LUNGS: Show diminished breath sounds at the bases. ABDOMEN: Soft, nontender to palpation. No rebound or guarding. EXTREMITIES: Negative for clubbing, cyanosis. No edema. DERMATOLOGIC: No rashes. MUSCULOSKELETAL: No joint effusions. NEUROLOGIC: No change in exam. Results Result Diagram: 07/25/16 0608 Results 24 hrs Laboratory Tests Test 07/26/16 07:46 07/26/16 11:46 Bedside Glucose 83 152 FABY HORN MD July 26, 2016 21:58
== END 2016-07-26 13:30 | DRG 559 ==
LOC: VRC 21:05
PROVIDERS: ADMIT Physical Medicine & Rehabilitation; ATTEND Internal Medicine
PROC: F07Z5FZ Bed Mobility Treatment using Assistive, Adaptive, Supportive or Protective Equipment (ICD-10-PCS; principal; 2016-07-13)
PROC: F07Z8FZ Transfer Training Treatment using Assistive, Adaptive, Supportive or Protective Equipment (ICD-10-PCS; 2016-07-13)
PROC: F07Z9FZ Gait Training/Functional Ambulation Treatment using Assistive, Adaptive, Supportive or Protective Equipment (ICD-10-PCS; 2016-07-13)
PROC: F08Z2FZ Grooming/Personal Hygiene Treatment using Assistive, Adaptive, Supportive or Protective Equipment (ICD-10-PCS; 2016-07-13)
PROC: F08Z1FZ Dressing Techniques Treatment using Assistive, Adaptive, Supportive or Protective Equipment (ICD-10-PCS; 2016-07-13)
PROC: F08Z0FZ Bathing/Showering Techniques Treatment using Assistive, Adaptive, Supportive or Protective Equipment (ICD-10-PCS; 2016-07-13)
PROC: 5A1D60Z (ICD-10-PCS; 2016-07-14)
DX: Z47.1 Aftercare following joint replacement surgery (principal); N18.6 End stage renal disease; E11.22 Type 2 diabetes mellitus with diabetic chronic kidney disease; I12.0 Hypertensive chronic kidney disease with stage 5 chronic kidney disease or end stage renal disease; E87.1 Hypo-osmolality and hyponatremia; Z96.641 Presence of right artificial hip joint; S72.011D Unspecified intracapsular fracture of right femur, subsequent encounter for closed fracture with routine healing; W01.0XXD Fall on same level from slipping, tripping and stumbling without subsequent striking against object, subsequent encounter; I25.10 Atherosclerotic heart disease of native coronary artery without angina pectoris; I25.5 Ischemic cardiomyopathy; E11.51 Type 2 diabetes mellitus with diabetic peripheral angiopathy without gangrene; E03.9 Hypothyroidism, unspecified; G89.4 Chronic pain syndrome; M50.30 Other cervical disc degeneration, unspecified cervical region; A60.04 Herpesviral vulvovaginitis; L89.629 Pressure ulcer of left heel, unspecified stage; L89.611 Pressure ulcer of right heel, stage 1; G89.18 Other acute postprocedural pain; Z99.2 Dependence on renal dialysis; Z79.4 Long term (current) use of insulin; Z95.0 Presence of cardiac pacemaker; Z95.1 Presence of aortocoronary bypass graft
CPT/HCPCS: 80048; 80053; 82962; 83735; 84100; 85014; 85018; 85025; 86692; 87081; 90935; 97110; 97112; 97116; 97150; 97163; 97167; 97530; 97535; 97542; A4310; J0886; J1644; J1650; J1815; J2405

== ENCOUNTER 2016-08-24 19:40 | Emergency (ER) | payer MEDICARE, OTHER ==
[~2016-08-24] VITALS: Wt 47.7 kg
[~2016-08-24 19:40] MED LIST changes: -ASPI-664 PO; -CHOL100062 PO; -CILO100T PO; -REPA0.5T3 PO
[2016-08-24 20:09] VITALS: TEMP 98.2
[2016-08-24] MEDS ORDERED: HYDROCODONE/APAP (5/325) TAB PO ONE (20:30)
[2016-08-24] MEDS ORDERED: LIDOCAINE 1% (MDV) 20 ML INJ SC ONE (20:30)
[2016-08-24] MEDS ORDERED: HYDR-3670 PO (21:12)
[2016-08-24] MEDS ORDERED: NEPH PO (21:15)
--- NOTE | 2016-08-24 21:17 | RADRPT ---
PROCEDURE: CT Brain without. CLINICAL INDICATION: Trauma, pain. TECHNIQUE: A CT of the brain was performed on multidetector high-resolution CT scanner utilizing a xial sections from the skull base through the vertex without contrast. The scan was reviewed in sof t tissue brain and high frequency resolution bone algorithm windows. Images were reviewed on a high -resolution PACS workstation. One or more the following does reduction techniques were utilized: Aut omated exposure control, adjustment of the mA/ or kV according to patient's size, or use of iterativ e reconstruction technique. The exam CTDI = 44.52 mGy and the DLP = 720.23 mGy-cm. COMPARISON: Brain CT 07/02/2016. FINDINGS: The ventricles and sulci are mildly prominent indicative of volume loss. There is no intracranial he morrhage, mass effect or midline shift. No abnormal intra-axial or extra-axial fluid collections ar e seen. The long/white matter differentiation is preserved. Focal anterior left frontal encephalomalacia is noted which likely represent sequela of prior trauma tic versus ischemic injury. There are mild scattered foci of hypoattenuation in the white matter, which are nonspecific in etiol ogy but likely reflect chronic small vessel ischemic changes. There are moderate intracranial vascu lar calcifications consistent with atherosclerosis. The visualized paranasal sinuses are essentially clear. Occipital scalp swelling, hematoma and subcutaneous air densities are noted without underlyi ng skull fracture. IMPRESSION: 1. No acute intracranial hemorrhage, transcortical infarction or mass effect. 2. Moderate intracranial atherosclerosis and mild chronic small vessel ischemic changes. 3. Focal anterior left frontal encephalomalacia, which likely represent sequela of prior trauma or infarct. 4. Mild generalized cerebral and cerebellar volume loss. 5. Occipital scalp swelling, hematoma and subcutaneous air densities without underlying skull fract ure. RPTAT: HH .Jackelin Barbosa MD, MD Date Time Electronically viewed and signed by .Jackelin Barbosa MD, MD on 08/24/2016 21:16 .N/
--- NOTE | 2016-08-24 21:41 | ERD ---
ER Documentation Chief Complaint Date/Time DATE: 08/24/16 TIME: 20:20 Chief Complaint head laceration. Pt on pain meds [place]. Fell at 0530 HD patient ROS All systems reviewed and are negative except as per history of present illness. Medications Home Meds Reported Medications Multivit/Ca Carb/B Cmplx/Fa* (Billie-Roge*) 1 Tab Tab, 1 TAB PO DAILY, TAB 08/24/16 Hydralazine Hcl* (Hydralazine Hcl*) 10 Mg Tablet, 10 MG PO BID, #60 TAB PATIENT TAKE ONLY SUNDAY,SUNDAY,SUNDAY AND SUNDAY. 08/24/16 Metoprolol Succinate* (Toprol XL*) 25 Mg Tab.sr.24h, 25 MG PO DAILY, #30 TAB 07/02/16 Sevelamer Carbonate* (Renvela*) 800 Mg Tablet, 0.8 GM PO WITH MEALS, TAB 03/23/16 Esomeprazole Mag Trihydrate (Nexium) 40 Mg Capsule.dr, 40 MG PO QAM, #30 CAP 03/23/16 Polyethylene Glycol* (Miralax*) 17 Gm Powd.pack, 17 GM PO DAILY, #30 PACKET 03/23/16 Escitalopram Oxalate* (Lexapro*) 10 Mg Tablet, 10 MG PO DAILY, #30 TAB 03/23/16 Levothyroxine Sodium* (Levothyroxine Sodium*) 88 Mcg Tablet, 88 MCG PO BEFORE BREAKFAST, #30 TAB 03/23/16 Ferrous Sulfate* (Ferrous Sulfate*) 325 Mg Tabec, 325 MG PO DAILY, TAB 03/23/16 Rosuvastatin Calcium* (Crestor*) 20 Mg Tablet, 20 MG PO QHS, #30 TAB 03/23/16 Discontinued Reported Medications Gabapentin* (Gabapentin*) 100 Mg Capsule, 100 MG PO DAILY Y for PRN, #90 CAP 07/02/16 Hydralazine Hcl* (Hydralazine Hcl*) 50 Mg Tab, 50 MG PO TID, #90 TAB 07/02/16 Multivit/Ca Carb/B Cmplx/Fa* (Billie-Roge*) 1 Tab Tab, 1 TAB PO DAILY, TAB 03/23/16 Allergies Allergies: Coded Allergies: No Known Allergy (Verified , 08/24/16) PMhx/Soc Reviewed in chart. As per HPI History of Surgery: Yes (RIGHT HIP REPLACEMENT 06/26) Anesthesia Reaction: No Hx Neurological Disorder: No Hx Respiratory Disorders: No Hx Cardiac Disorders: Yes (CABG, [place], CHF, PACEMAKER) Hx Psychiatric Problems: No Hx Miscellaneous Medical Probl: Yes (ESRD) Hx Alcohol Use: No Hx Substance Use: No Hx Tobacco Use: No Smoking Status: Never smoker FmHx Not relevant to presenting Physical Exam Vitals Vital Signs Date Time Temp Pulse Resp B/P Pulse Ox O2 Delivery O2 Flow Rate FiO2 08/24/16 20:09 98.2 84 18 126/50 99 Room Air 08/24/16 19:53 99.0 83 20 124/58 93 Physical Exam Const: [] Head: Atraumatic Eyes: Normal Conjunctiva ENT: Normal External Ears, Nose and Mouth. Neck: Full range of motion..~ No meningismus. Resp: Clear to auscultation bilaterally Cardio: Regular rate and rhythm, no murmurs Abd: Soft, non tender, non distended. Normal bowel sounds Skin: No petechiae or rashes Back: No midline or flank tenderness Ext: No cyanosis, or edema Neur: Awake and alert Psych: Normal Mood and Affect Results 24 hrs Current Medications Medications (Trade) Dose Ordered Sig/Jostin Route PRN Reason Start Time Stop Time Status Last Admin Dose Admin Lidocaine (Xylocaine 1% (Mdv) 20 ml) 20 ml ONCE ONCE SC 08/24/16 20:30 08/24/16 20:31 DC 08/24/16 21:11 Acetaminophen/ Hydrocodone Bitart ([place] (5/325)) 1 tab ONCE ONCE PO 08/24/16 20:30 08/24/16 20:31 DC 08/24/16 20:36 ROCEDURE: CT Brain without. CLINICAL INDICATION: Trauma, pain. TECHNIQUE: A CT of the brain was performed on multidetector high-resolution CT scanner utilizing axial sections from the skull base through the vertex without contrast. The scan was reviewed in soft tissue brain and high frequency resolution bone algorithm windows. Images were reviewed on a high- resolution PACS workstation. One or more the following does reduction techniques were utilized: Automated exposure control, adjustment of the mA/ or kV according to patient's size, or use of iterative reconstruction technique. The exam CTDI = 44.52 mGy and the DLP = 720.23 mGy-cm. COMPARISON: Brain CT 07/02/2016. FINDINGS: The ventricles and sulci are mildly prominent indicative of volume loss. There is no intracranial hemorrhage, mass effect or midline shift. No abnormal intra- axial or extra-axial fluid collections are seen. The long/white matter differentiation is preserved. Focal anterior left frontal encephalomalacia is noted which likely represent sequela of prior traumatic versus ischemic injury. There are mild scattered foci of hypoattenuation in the white matter, which are nonspecific in etiology but likely reflect chronic small vessel ischemic changes. There are moderate intracranial vascular calcifications consistent with atherosclerosis. The visualized paranasal sinuses are essentially clear. Occipital scalp swelling, hematoma and subcutaneous air densities are noted without underlying skull fracture. IMPRESSION: 1. No acute intracranial hemorrhage, transcortical infarction or mass effect. 2. Moderate intracranial atherosclerosis and mild chronic small vessel ischemic changes. 3. Focal anterior left frontal encephalomalacia, which likely represent sequela of prior trauma or infarct. 4. Mild generalized cerebral and cerebellar volume loss. 5. Occipital scalp swelling, hematoma and subcutaneous air densities without underlying skull fracture. RPTAT: HH .Jackelin Barbosa MD, MD Date Time Electronically viewed and signed by .Jackelin Barbosa MD, MD on 08/24/2016 21: 16 .N/ Procedures/MDM DOCUMENTS REVIEWED: ED nurse, prior ED, prior records PROCEDURE: Laceration Repair by me: Anesthesia: 1% lidocaine locally Location: Scalp Foreign body: None detected after copious irrigation and exploration Technique: Surgical j carlos Complexity: No subcutaneous sutures/mucosal repair/ edge excision Post Closure Length: 3.0 cm Patient's bleeding was easily controlled in the department and there is no indication of anemia. No evidence of compartment syndrome, neurologic injury, vascular injury, open joint, tendon laceration, or foreign body. Patient is appropriate for outpatient follow up. 48 hour wound check. Scar minimization instructions given. MEDICAL DECISION MAKING: [] Counseled patient and family regarding diagnostic workup, diagnosis and need for followup. Understands to return to ED if symptoms recur, worsen or any other concerns. Departure Diagnosis: Primary Impression: Occipital scalp laceration Encounter type: initial encounter Qualified Code: S01.01XA - Occipital scalp laceration, initial encounter Additional Impressions: Closed head injury Encounter type: initial encounter Qualified Code: S09.90XA - Closed head injury, initial encounter Fall Encounter type: initial encounter Qualified Code: W19.XXXA - Fall, initial encounter End stage renal disease on dialysis Diabetes mellitus type 2 in nonobese Ulcer of right heel Non-pressure ulcer stage: unspecified non-pressure ulcer stage Qualified Code : L97.419 - Ulcer of right heel, with unspecified severity DARIEN HARPER MD Aug 24, 2016 21:41
[2016-08-24 22:03] VITALS: BP 131/58; PULSE 65; RESP 18
== END 2016-08-24 22:07 | disposition home or self-care (01) ==
LOC: E/R 19:40
DX: S01.01XA Laceration without foreign body of scalp, initial encounter (principal); N18.6 End stage renal disease; E11.9 Type 2 diabetes mellitus without complications; L97.419 Non-pressure chronic ulcer of right heel and midfoot with unspecified severity; I50.9 Heart failure, unspecified; W19.XXXA Unspecified fall, initial encounter; Y92.9 Unspecified place or not applicable; Z96.641 Presence of right artificial hip joint; Z98.61 Coronary angioplasty status; Z95.0 Presence of cardiac pacemaker
CPT/HCPCS: 70450

== ENCOUNTER 2016-09-26 16:53 | Inpatient (IN) | payer MEDICARE, OTHER ==
[~2016-09-26] VITALS: Ht 152.4 cm; Wt 48.4 kg
[~2016-09-26 16:53] MED LIST changes: -GABA100C14 PO; +HYDR-3670 PO; -HYDR-3672 PO
[2016-09-26 18:13] VITALS: BP 101/55; RESP 18
[2016-09-26 18:20] VITALS: Ht 152.4 cm; Wt 48.4 kg
[2016-09-26] MEDS ORDERED: HYDR-902 PO (19:54)
[2016-09-26] MEDS ORDERED: REPA1TAB14 PO (19:54)
[2016-09-26 23:19] VITALS: BP 124/58; RESP 18
[2016-09-27] VITALS (12 sets, daily range): BP systolic 104–130; BP diastolic 53–61; PULSE 74–86; RESP 16–20
[2016-09-27] MEDS ORDERED: ZOLPIDEM 5 MG TAB PO PRN (01:00)
[2016-09-27] MEDS ORDERED: HYDROCODONE/APAP (10/325) TAB PO SCH ×3 (01:00→07:30)
[2016-09-27] MEDS: PANTOPRAZOLE (EC) 40 MG TAB PO SCH (06:31)
[2016-09-27] MEDS: LEVOTHYROXINE 88 MCG TAB PO SCH (06:31)
[2016-09-27] MEDS ORDERED: GLUCOSE GEL 15 GRAM TUBE BUCCAL PRN (07:30)
[2016-09-27] MEDS ORDERED: DEXTROSE 50% 50 ML SYRINGE IV PRN ×2 (07:30)
[2016-09-27] MEDS ORDERED: GLUCAGON 1 MG INJ IM PRN (07:30)
[2016-09-27] MEDS ORDERED: HYDROCODONE/APAP (10/325) TAB PO ONE (07:30)
[2016-09-27] MEDS ORDERED: GLUCOSE GEL 15 GRAM TUBE PO PRN ×2 (07:30)
[2016-09-27] MEDS ORDERED: REPAGLINIDE 1 MG TAB PO SCH (08:00)
[2016-09-27] MEDS: INSULIN ASPART [NOVOLOG] 3 ML PEN SC SCH ×4 (08:15→21:00)
[2016-09-27 08:32] LABS: ADD SCAN DIFF NO
[2016-09-27 08:38] LABS: ABNORMAL IP MESSAGE 1; BASOPHILS % 0.3 % (0.0-2.0); EOSINOPHILS % 0.5 % (0.0-7.0); HEMATOCRIT 33.9 % (37.0-47.0); HEMOGLOBIN 11.2 g/dl (12.0-16.0); LYMPHOCYTES # 1.3 10^3/ul (0.8-2.9); MEAN CORPUSCULAR HEMOGLOBIN 28.8 pg (29.0-33.0); MEAN CORPUSCULAR VOLUME 87.1 fl (82.0-101.0); MEAN PLATELET VOLUME 10.1 fl (7.4-10.4); MONOCYTE # 0.5 10^3/ul (0.3-0.9); MONOCYTES % 7.8 % (0.0-11.0); NEUTROPHIL # 4.6 10^3/ul (1.6-7.5); NEUTROPHILS % 70.9 % (39.0-77.0); PLATELET COUNT 97 10^3/UL (140-415); RED BLOOD COUNT 3.89 10^6/ul (4.20-5.40); RED CELL DISTRIBUTION WIDTH 17.1 % (11.5-14.5); WHITE BLOOD COUNT 6.4 10^3/ul (4.8-10.8)
[2016-09-27] MEDS: METOPROLOL (XL) 25 MG TAB PO SCH (09:00)
[2016-09-27] MEDS: MULTIVIT/CA CARB/B CMPLX/FA TAB PO SCH (09:19)
[2016-09-27] MEDS: POLYETHYLENE GLYCOL 17 GM PACKET PO SCH (09:20)
[2016-09-27] MEDS: SEVELAMER CARBONATE 0.8 GM PKT PO SCH ×3 (09:20→18:00)
[2016-09-27] MEDS: FERROUS SULFATE (EC) 325 MG TAB PO SCH (09:20)
--- NOTE | 2016-09-27 10:47 | HP ---
DATE OF ADMISSION: 09/26/2016 CHIEF COMPLAINT: Right lower extremity wound. Diabetic foot ulcer. Right lower extremity gangrene. HISTORY OF PRESENT ILLNESS: This is a 75-year-old female with a past medical history of end-stage renal disease on dialysis Sunday, Sunday and Sunday, access PermCath, history of peripheral vascular disease, status post right lower extremity bypass, history of cardiomyopathy, coronary artery disease, status post CABG, history of arrhythmia, diabetes. She has had previous admissions to [facility]. The patient was being followed currently at APC service at [facility] due to a worsening right lower extremity wound. The patient's vascular surgeon is . She had previous bypass performed, but according to the patient's family, the patient's wound is not amenable to revascularization. As a result, the patient is brought into the hospital for possibility of a right lower extremity amputation. The patient complains of right lower extremity pain. She denies any recent episodes of fever, chills, nausea, vomiting or shortness of breath. PAST MEDICAL HISTORY: Patient with end-stage renal disease, diabetes, hypertension, cardiomyopathy, hypothyroidism, anemia, coronary artery disease. PAST SURGICAL HISTORY: Status post CABG. Status post right lower extremity fem-pop. MEDICATIONS: Medications have been reviewed and reconciled. FAMILY HISTORY: No family history of kidney disease or heart disease. SOCIAL HISTORY: Noncontributory. ALLERGIES: NO KNOWN DRUG ALLERGIES. REVIEW OF SYSTEMS: A 14-point review of systems was significant for positives in HPI, otherwise negative. PHYSICAL EXAMINATION: VITAL SIGNS: Blood pressure 135/72, respirations 18, pulse 70, temperature 98.7. HEENT: Head is normocephalic. Pupils are reactive to light. NECK: Supple. HEART: Regular rate. CHEST: Shows PermCath. ABDOMEN: Soft. Nontender on palpation. No rebound or guarding. EXTREMITIES: Positive for dressing over bilateral lower extremities. There is noted erythema in the right lower extremity. Noted wound. NEUROLOGIC: No focal deficits. DATA: The patient's laboratory data is currently pending. ASSESSMENT AND PLAN:: This is a 75-year-old female who presents with: 1. Right lower extremity gangrene. The patient has been seen by wound care. Plan for possible amputation. Plan is to get a surgical consultation with Dr. Bianchi. The patient is also being followed by Dr. Riojas at [facility] Service. Will continue pain control. Continue wound care. I also placed an ID consult to see if there is any need for IV antibiotics. 2. End-stage renal disease. Plan for hemodialysis today with dialysis . 3. Coronary artery disease. History of cardiomyopathy. The patient is currently stable. Place cardiac consult with Dr. Benson for preop evaluation. 4. Anemia. Monitor hemoglobin and hematocrit. 5. Diabetes. Continue current insulin regimen. 6. Hypertension. Continue current blood pressure regimen. 7. Hypothyroidism. The patient takes Synthroid. 8. GI and DVT prophylaxis. . 9. Status post right hip fracture. I spent up to 25 minutes in [id number] time with the patient. The patient is full code. Dictated By: Ihsan Johns DO /[email or web address]/sheila /Document#: [id number]
[2016-09-27 11:05] LABS: ALBUMIN 2.7 g/dl (3.3-4.9); ALBUMIN/GLOBULIN RATIO 0.9; BILIRUBIN,INDIRECT 0.1 mg/dl (0-1.1); BILIRUBIN,TOTAL 0.1 mg/dl (0.2-1.3); CALCIUM 8.1 mg/dl (8.4-10.2); CREATININE 3.28 mg/dl (0.44-1.00); MAGNESIUM 1.9 mg/dl (1.7-2.5); PHOSPHORUS 5.8 mg/dl (2.5-4.9); POTASSIUM 4.7 mmol/L (3.5-5.1); TOTAL PROTEIN 5.7 g/dl (6.1-8.1)
[2016-09-27 11:26] LABS: THYROID STIMULATING HORMONE 4.98 MIU/L (0.465-4.680)
[2016-09-27 13:56] LABS: CK-MB 1.43 ng/ml (0.0-2.4)
[2016-09-27 13:57] LABS: CREATINE KINASE < 20 IU/L (23-200); TROPONIN-I < 0.012 ng/ml (0.00-0.12)
--- NOTE | 2016-09-27 15:07 | CONS ---
Date/Time of Note Date/Time of Note DATE: 09/27/16 TIME: 15:07 Consultation Date/Type/Reason Admit Date/Time Sep 26, 2016 at 16:53 Type of Consultation: ID Reason for Consultation This is Dr. See Ross dictating infectious consultation on Lucía Ramesh , date of admission 09/27/2016, date of dictation 09/27/2016, reason for consultation is antibiotic management. Patient is a 75-year-old [place] Citizen Of [place] female who presents with diabetic foot ulcer and right lower extremity gangrene. Past problems include: 1. End-stage renal disease on hemodialysis 2 adult onset diabetes mellitus 3 hypertension 4. Cardiomyopathy 5 coronary artery disease 6 anemia of chronic disease 7 status post coronary artery bypass graft 8 status post right lower extremity femoral-popliteal bypass 9 permacath 10 peripheral vascular disease 11 cardiac arrhythmia Acutely the patient was been followed at the [facility] clinic has developed worsening right lower extremity wound. On admission white count 6.4 H&H of 11.2 and 33.9 platelet count 97,000 BUN/creatinine is 48/3.28 although the patient is on dialysis. Past medical history as outlined Past surgical history as outlined Family history noncontributory Social history: She does not smoke drink or abuse drugs. Allergies none to penicillin sulfa foods Medications per chart Review of systems per HPI On physical examination patient is a chronically ill-appearing female who is lethargic but arousable. Vital signs are stable she is afebrile. SHEENT within normal limits Neck is supple without neck vein distention Chest decreased breath sounds at the bases, permacath present. Heart without murmur gallop Abdomen is soft and nontender without organosplenomegaly masses. Extremities: Dressings over both lower extremities there is erythema in the right lower extremity. Rectal/genital exam: Within normal limits Neurological evaluation: No focal neurological deficits. Patient presents now with right lower extremity gangrene and the plan is for possible amputation. She is to be seen by Dr. Bianchi and by Dr. Riojas. We will start her on vancomycin pharmacy to dose. Will await decision on amputation. 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 Social History Smoking Status: Never smoker Exam/Review of Systems Vital Signs Vitals Vital Signs Date Time Temp Pulse Resp B/P Pulse Ox O2 Delivery O2 Flow Rate FiO2 09/27/16 14:49 97.5 80 16 115/54 96 Intake and Output 09/26/16 09/26/16 09/27/16 15:00 23:00 07:00 Intake Total 120 ml Balance 120 ml Results Result Diagram: 09/27/16 0744 09/27/16 0744 Results 24 hrs Laboratory Tests Test 09/27/16 06:13 09/27/16 07:27 09/27/16 07:44 09/27/16 08:43 Bedside Glucose 100 98 Hemoglobin A1c 6.3 H White Blood Count 6.4 Red Blood Count 3.89 L Hemoglobin 11.2 L Hematocrit 33.9 L Mean Corpuscular Volume 87.1 Mean Corpuscular Hemoglobin 28.8 L Mean Corpuscular Hemoglobin Concent 33.0 Red Cell Distribution Width 17.1 H Platelet Count 97 L Mean Platelet Volume 10.1 Neutrophils % 70.9 Lymphocytes % 20.0 Monocytes % 7.8 Eosinophils % 0.5 Basophils % 0.3 Nucleated Red Blood Cells % 0.0 Neutrophils # 4.6 Lymphocytes # 1.3 Monocytes # 0.5 Eosinophils # 0.0 Basophils # 0.0 Nucleated Red Blood Cells # 0.0 Sodium Level 130 L Potassium Level 4.7 Chloride Level 91 L Carbon Dioxide Level 20 L Anion Gap 24 H Blood Urea Nitrogen 48 H Creatinine 3.28 H Glucose Level 80 Calcium Level 8.1 L Phosphorus Level 5.8 H Magnesium Level 1.9 Total Bilirubin 0.1 L Direct Bilirubin 0.00 Indirect Bilirubin 0.1 Aspartate Amino Transf (AST/SGOT) 32 Alanine Aminotransferase (ALT/SGPT) 31 Alkaline Phosphatase 122 H Total Protein 5.7 L Albumin 2.7 L Globulin 3.00 Albumin/Globulin Ratio 0.90 Thyroid Stimulating Hormone (TSH) 4.980 H Test 09/27/16 12:29 09/27/16 13:20 Bedside Glucose 125 Creatine Kinase < 20 L Creatine Kinase Index Creatinine Kinase MB (Mass) 1.43 Troponin I < 0.012 Free Thyroxine 1.27 Medications Medications Current Medications Ferrous Sulfate (Ferrous Sulfate (Ec)) 325 mg DAILY PO Last administered on t 09:20; Admin Dose 325 MG; Start 09/27/16 at 09:00 Hydralazine HCl (Apresoline) 10 mg BID PO ; Start 09/27/16 at 09:00 Metoprolol Succinate (Toprol Xl) 25 mg DAILY PO ; Start 09/27/16 at 09:00 Multivit/Ca Carb/ B Cmplx/FA/Prenat (Billie-Roge) 1 tab DAILY PO Last administered on 09/27/16 09:19; Admin Dose 1 TAB; Start 09/27/16 at 09:00 Polyethylene Glycol (Miralax) 17 gm DAILY PO Last administered on 09/27/16 09: 20; Admin Dose 17 GM; Start 09/27/16 at 09:00 Pantoprazole (Protonix Tab) 40 mg DAILY@06 PO Last administered on 09/27/16 06 :31; Admin Dose 40 MG; Start 09/27/16 at 06:00 Atorvastatin Calcium (Lipitor) 80 mg DAILY@21 PO ; Start 09/27/16 at 21:00 Zolpidem Tartrate (Ambien) 5 mg HS PRN PO INSOMNIA; Start 09/27/16 at 01:00 Acetaminophen (Tylenol Tab) 650 mg Q6H PRN PO PAIN AND OR ELEVATED TEMP; Start 09/27/16 at 01:00 Ondansetron HCl (Zofran Inj) 4 mg Q6H PRN IV NAUSEA AND/OR VOMITING; Start at 01:00 IV Flush (NS 10 ml) 3 ml Q8 IV ; Start 09/27/16 at 06:00 Diagnostic Test (Pha) (Accu-Chek) 1 ea 02 XX ; Start 09/28/16 at 02:00 Diagnostic Test (Pha) (Accu-Chek) 1 ea 02 XX ; Start 09/28/16 at 02:00 Miscellaneous Information 1 ea NOTE XX ; Start 09/27/16 at 07:30 Glucose (Glutose) 15 gm Q15M PRN PO DECREASED GLUCOSE; Start 09/27/16 at 07:30 Glucose (Glutose) 22.5 gm Q15M PRN PO DECREASED GLUCOSE; Start 09/27/16 at 07: 30 Dextrose (D50w Syringe) 25 ml Q15M PRN IV DECREASED GLUCOSE; Start 09/27/16 at 07:30 Dextrose (D50w Syringe) 50 ml Q15M PRN IV DECREASED GLUCOSE; Start 09/27/16 at 07:30 Glucagon (Glucagen) 1 mg Q15M PRN IM DECREASED GLUCOSE; Start 09/27/16 at 07:30 Glucose (Glutose) 15 gm Q15M PRN BUCCAL DECREASED GLUCOSE; Start 09/27/16 at 07 :30 Acetaminophen/ Hydrocodone Bitart ([place] ()) 1.5 tab Q8H PO ; Start at 15:30 Clonidine (Catapres) 0.1 mg Q6H PRN PO SBP>170; Start 09/27/16 at 12:00 SEE ROSS MD Sep 27, 2016 15:07
--- NOTE | 2016-09-27 15:10 | RADRPT ---
PROCEDURE: XR Chest. CLINICAL INDICATION: Shortness of breath. TECHNIQUE: Single frontal view. COMPARISON: 07/02/2016. FINDINGS: The right internal jugular vein tunneled dialysis catheter remains in satisfactory position. There is a left-sided dual lead permanent pacemaker. The heart is enlarged. Calcification is present in the aorta consistent with atherosclerosis. There are sternal wires and mediastinal clips. The lungs are clear. There is no pleural effusion. There is no pneumothorax. IMPRESSION: 1. No change from 07/02/2016. RPTAT: QQ .Mohinder Richardson MD, MD Date Time Electronically viewed and signed by .Mohinder Richardson MD, MD on 09/27/2016 15:10 .R/
[2016-09-27] MEDS ORDERED: VANCOMYCIN 1 GM in NS 250 ML IVPB SCH (15:30)
[2016-09-27] MEDS ORDERED: VANCOMYCIN IV PER PHARMACY XX SCH (15:30)
--- NOTE | 2016-09-27 15:30 | RADRPT ---
Vent Rate: 78 bpm RR Interval: 0 msec NV Interval: 162 msec QRS Duration: 190 msec QT Interval: 444 msec QTC Interval: 506 msec P-R-T [place]: 55 - -71 - 110 degrees Electronic ventricular pacemaker Electronically Signed By: Bobo Benson [id number]
[2016-09-27] MEDS: HYDROCODONE/APAP (10/325) TAB PO SCH ×2 (15:35→23:08)
[2016-09-27 18:40] LABS: CK-MB 1.38 ng/ml (0.0-2.4)
[2016-09-27 19:18] LABS: CREATINE KINASE < 20 IU/L (23-200); TROPONIN-I < 0.012 ng/ml (0.00-0.12)
[2016-09-27] MEDS ORDERED: ACETAMINOPHEN 325 MG TAB PO ONE (20:30)
[2016-09-27] MEDS: ATORVASTATIN 80 MG TAB PO SCH (21:00)
[2016-09-27] MEDS: morphine 2 MG INJ IV PRN (22:41)
[2016-09-28 01:35] LABS: CREATINE KINASE < 20 IU/L (23-200)
[2016-09-28] MEDS: ACCU-CHEK XX SCH (01:40)
[2016-09-28 01:41] LABS: CK-MB 1.19 ng/ml (0.0-2.4)
[2016-09-28 01:42] LABS: TROPONIN-I < 0.012 ng/ml (0.00-0.12)
[2016-09-28] MEDS ORDERED: ACCU-CHEK XX SCH (02:00)
[2016-09-28 02:44] VITALS: BP 114/55; RESP 16
[2016-09-28 05:45] LABS: ADD SCAN DIFF NO
[2016-09-28 05:48] LABS: ABNORMAL IP MESSAGE 1; BASOPHILS % 0.3 % (0.0-2.0); EOSINOPHILS % 0.2 % (0.0-7.0); HEMATOCRIT 31.9 % (37.0-47.0); HEMOGLOBIN 10.4 g/dl (12.0-16.0); LYMPHOCYTES # 0.9 10^3/ul (0.8-2.9); LYMPHOCYTES % 13.9 % (15.0-51.0); MEAN CORPUSCULAR HEMOGLOBIN 28.3 pg (29.0-33.0); MEAN CORPUSCULAR HGB CONC 32.6 g/dl (32.0-37.0); MEAN CORPUSCULAR VOLUME 86.9 fl (82.0-101.0); MEAN PLATELET VOLUME 9.5 fl (7.4-10.4); MONOCYTE # 0.3 10^3/ul (0.3-0.9); MONOCYTES % 5.2 % (0.0-11.0); NEUTROPHIL # 4.9 10^3/ul (1.6-7.5); NEUTROPHILS % 79.7 % (39.0-77.0); PLATELET COUNT 80 10^3/UL (140-415); RED BLOOD COUNT 3.67 10^6/ul (4.20-5.40); RED CELL DISTRIBUTION WIDTH 17.3 % (11.5-14.5); WHITE BLOOD COUNT 6.1 10^3/ul (4.8-10.8)
[2016-09-28 06:10] LABS: CREATININE 2.8 mg/dl (0.44-1.00); MAGNESIUM 1.9 mg/dl (1.7-2.5); PHOSPHORUS 5.2 mg/dl (2.5-4.9); POTASSIUM 4.2 mmol/L (3.5-5.1)
[2016-09-28] MEDS: LEVOTHYROXINE 88 MCG TAB PO SCH (06:29)
[2016-09-28] MEDS: PANTOPRAZOLE (EC) 40 MG TAB PO SCH (06:29)
[2016-09-28 07:41] VITALS: BP 114/56; RESP 18
[2016-09-28] MEDS: INSULIN ASPART [NOVOLOG] 3 ML PEN SC SCH ×4 (08:15→21:00)
[2016-09-28] MEDS: SEVELAMER CARBONATE 0.8 GM PKT PO SCH ×3 (08:36→17:20)
[2016-09-28] MEDS: POLYETHYLENE GLYCOL 17 GM PACKET PO SCH (08:37)
[2016-09-28] MEDS: FERROUS SULFATE (EC) 325 MG TAB PO SCH (08:37)
[2016-09-28] MEDS: MULTIVIT/CA CARB/B CMPLX/FA TAB PO SCH (08:37)
[2016-09-28] MEDS: METOPROLOL (XL) 25 MG TAB PO SCH (08:38)
[2016-09-28 08:43] LABS: CHOL/HDL RATIO 2.1 RATIO
[2016-09-28] MEDS: HYDROCODONE/APAP (10/325) TAB PO SCH ×3 (08:43→22:44)
--- NOTE | 2016-09-28 12:19 | CONS ---
Date/Time of Note Date/Time of Note DATE: 09/28/16 TIME: 12:14 Assessment/Plan Assessment/Plan Chief Complaint/Hosp Course IMP: 1.Cardiomyopathy with low EF 2.HTN 3.HL 4.cad 5. Pad s/p peripheral bypass 6. ESRD on HD 7. Non-healing LE wound 8. PPM 9. Anemia 10. Hyponatremia 11.Hypothyroid Recc: -Tele -serial ecg's -Continue BB/hydralazine -Continue statin but decrease dose -HD for volume removal -Continue abx's -Local wound care -Pain control Problems: Consultation Date/Type/Reason Admit Date/Time Sep 26, 2016 at 16:53 Initial Consult Date 09/27/2016 Type of Consultation: cardiology Reason for Consultation cardiomyopathy Referring Provider: BRANDI ERICKSON DO Exam/Review of Systems Vital Signs Vitals Vital Signs Date Time Temp Pulse Resp B/P Pulse Ox O2 Delivery O2 Flow Rate FiO2 09/28/16 07:41 98.3 79 18 114/56 98 Intake and Output 09/27/16 09/27/16 09/28/16 15:00 23:00 07:00 Intake Total 1590 ml 360 ml Output Total 2500 ml Balance -910 ml 360 ml Exam Review of Systems: CONSTITUTIONAL: No fevers, chills. PULMONARY: No sob CARDIOVASCULAR: No chest pain/palpitations GASTROINTESTINAL: No nausea/vomiting. GENITOURINARY: No hematuria/dysuria. MUSCULOSKELETAL: pain in leg PSYCHIATRIC: The patient denies depression. NEUROLOGIC: No weakness Constitutional: alert Psych: no complaints Head: normocephalic ENMT: mucosa pink and moist Neck: jvd (8-9 cm water), supple Respiratory: diminished breath sounds (at bases/B) Cardiovascular: regular rate and rhythm Gastrointestinal: non-tender, soft Musculoskeletal: muscle tone (normal) Extremities: edema (none), other (covered by dressing with non-healing wound) Neurological: other (No focal deficits) Results Result Diagram: 09/28/16 0519 09/28/16 0519 Results 24 hrs Laboratory Tests Test 09/27/16 12:29 09/27/16 13:20 09/27/16 17:30 09/27/16 17:52 Bedside Glucose 125 124 Creatine Kinase < 20 L < 20 L Creatine Kinase Index Creatinine Kinase MB (Mass) 1.43 1.38 Troponin I < 0.012 < 0.012 Free Thyroxine 1.27 Test 09/27/16 19:44 09/27/16 21:03 09/28/16 00:40 09/28/16 05:19 Bedside Glucose 98 95 Creatine Kinase < 20 L Creatine Kinase Index Creatinine Kinase MB (Mass) 1.19 Troponin I < 0.012 White Blood Count 6.1 Red Blood Count 3.67 L Hemoglobin 10.4 L Hematocrit 31.9 L Mean Corpuscular Volume 86.9 Mean Corpuscular Hemoglobin 28.3 L Mean Corpuscular Hemoglobin Concent 32.6 Red Cell Distribution Width 17.3 H Platelet Count 80 L Mean Platelet Volume 9.5 Neutrophils % 79.7 H Lymphocytes % 13.9 L Monocytes % 5.2 Eosinophils % 0.2 Basophils % 0.3 Nucleated Red Blood Cells % 0.0 Neutrophils # 4.9 Lymphocytes # 0.9 Monocytes # 0.3 Eosinophils # 0.0 Basophils # 0.0 Nucleated Red Blood Cells # 0.0 Sodium Level 134 L Potassium Level 4.2 Chloride Level 93 L Carbon Dioxide Level 24 Anion Gap 21 H Blood Urea Nitrogen 36 #H Creatinine 2.80 H Glucose Level 120 # Calcium Level 8.0 L Phosphorus Level 5.2 H Magnesium Level 1.9 Triglycerides Level 79 Cholesterol Level 67 L LDL Cholesterol, Calculated 20 HDL Cholesterol 31 L Cholesterol/HDL Ratio 2.1 Test 09/28/16 08:36 09/28/16 12:00 Bedside Glucose 126 140 Medications Medications Current Medications Ferrous Sulfate (Ferrous Sulfate (Ec)) 325 mg DAILY PO Last administered on 08:37; Admin Dose 325 MG; Start 09/27/16 at 09:00 Hydralazine HCl (Apresoline) 10 mg BID PO Last administered on 09/28/16 08:38 ; Admin Dose 10 MG; Start 09/27/16 at 09:00 Metoprolol Succinate (Toprol Xl) 25 mg DAILY PO Last administered on 09/28/16 08:38; Admin Dose 25 MG; Start 09/27/16 at 09:00 Multivit/Ca Carb/ B Cmplx/FA/Prenat (Billie-Roge) 1 tab DAILY PO Last administered on 09/28/16 08:37; Admin Dose 1 TAB; Start 09/27/16 at 09:00 Polyethylene Glycol (Miralax) 17 gm DAILY PO Last administered on 09/28/16 08: 37; Admin Dose 17 GM; Start 09/27/16 at 09:00 Pantoprazole (Protonix Tab) 40 mg DAILY@06 PO Last administered on 09/28/16 06 :29; Admin Dose 40 MG; Start 09/27/16 at 06:00 Atorvastatin Calcium (Lipitor) 80 mg DAILY@21 PO ; Start 09/27/16 at 21:00 Zolpidem Tartrate (Ambien) 5 mg HS PRN PO INSOMNIA; Start 09/27/16 at 01:00 Acetaminophen (Tylenol Tab) 650 mg Q6H PRN PO PAIN AND OR ELEVATED TEMP; Start 09/27/16 at 01:00 Ondansetron HCl (Zofran Inj) 4 mg Q6H PRN IV NAUSEA AND/OR VOMITING; Start at 01:00 IV Flush (NS 10 ml) 3 ml Q8 IV Last administered on 09/28/16 06:29; Admin Dose 3 ML; Start 09/27/16 at 06:00 Diagnostic Test (Pha) (Accu-Chek) 1 ea 02 XX ; Start 09/28/16 at 02:00 Miscellaneous Information 1 ea NOTE XX ; Start 09/27/16 at 07:30 Glucose (Glutose) 15 gm Q15M PRN PO DECREASED GLUCOSE; Start 09/27/16 at 07:30 Glucose (Glutose) 22.5 gm Q15M PRN PO DECREASED GLUCOSE; Start 09/27/16 at 07: 30 Dextrose (D50w Syringe) 25 ml Q15M PRN IV DECREASED GLUCOSE; Start 09/27/16 at 07:30 Dextrose (D50w Syringe) 50 ml Q15M PRN IV DECREASED GLUCOSE; Start 09/27/16 at 07:30 Glucagon (Glucagen) 1 mg Q15M PRN IM DECREASED GLUCOSE; Start 09/27/16 at 07:30 Glucose (Glutose) 15 gm Q15M PRN BUCCAL DECREASED GLUCOSE; Start 09/27/16 at 07 :30 Acetaminophen/ Hydrocodone Bitart ([place] (10/325)) 1.5 tab Q8H PO Last administered on 09/28/16 08:43; Admin Dose 1.5 TAB; Start 09/27/16 at 15:30 Clonidine (Catapres) 0.1 mg Q6H PRN PO SBP>170; Start 09/27/16 at 12:00 Morphine Sulfate (morphine) 2 mg Q2H PRN IV PAIN Last administered on t 22:41; Admin Dose 2 MG; Start 09/27/16 at 22:00 YI RODRIGUEZ Sep 28, 2016 12:19
[2016-09-28] MEDS: morphine 2 MG INJ IV PRN ×2 (12:50→21:47)
--- NOTE | 2016-09-28 14:35 | CONS ---
Date/Time of Note Date/Time of Note DATE: 09/28/16 TIME: 14:34 Assessment/Plan Assessment/Plan Chief Complaint/Hosp Course In hemodialysis, sleeping, looks comfortable, family at bedside Microbiology: Blood culture growing staph species nares swab came back positive for MRSA Antibiotics vancomycin Physical examination: Well-developed fragile elderly woman who is in no distress. Head atraumatic normocephalic sclera nonicteric bugle mucosa dry neck is supple chest rise symmetrical breath sounds diminished bases heart S1- S2 abdomen soft bowel tones present extremities right foot dressing intact Assessment: #1. Bacteremia==> Staph #1 right lower extremity gangrene #2 severe peripheral arterial disease #3 end-stage renal disease, hemodialysis dependent #4 diabetes #5 coronary artery disease with a history of cardiomyopathy #6. Left upper extremity AV fistula Plan: Clinically unchanged, hemodynamically stable, continue antibiotics, Bactroban to nares, follow podiatry vascular cardiology recommendations Discussed with family at bedside Problems: Consultation Date/Type/Reason Admit Date/Time Sep 26, 2016 at 16:53 Initial Consult Date Type of Consultation: id Referring Provider: BRANDI ERICKSON DO Exam/Review of Systems Vital Signs Vitals Vital Signs Date Time Temp Pulse Resp B/P Pulse Ox O2 Delivery O2 Flow Rate FiO2 09/28/16 07:41 98.3 79 18 114/56 98 Intake and Output 09/27/16 09/27/16 09/28/16 15:00 23:00 07:00 Intake Total 1590 ml 360 ml Output Total 2500 ml Balance -910 ml 360 ml Results Result Diagram: 09/28/1651809/28/16518 Results 24 hrs Laboratory Tests Test 09/27/16 17:30 09/27/16 17:52 09/27/16 19:44 09/27/16 21:03 Bedside Glucose 124 98 95 Creatine Kinase < 20 L Creatine Kinase Index Creatinine Kinase MB (Mass) 1.38 Troponin I < 0.012 Test 09/28/16 00:40 09/28/16 05:19 09/28/16 08:36 09/28/16 12:00 Creatine Kinase < 20 L Creatine Kinase Index Creatinine Kinase MB (Mass) 1.19 Troponin I < 0.012 White Blood Count 6.1 Red Blood Count 3.67 L Hemoglobin 10.4 L Hematocrit 31.9 L Mean Corpuscular Volume 86.9 Mean Corpuscular Hemoglobin 28.3 L Mean Corpuscular Hemoglobin Concent 32.6 Red Cell Distribution Width 17.3 H Platelet Count 80 L Mean Platelet Volume 9.5 Neutrophils % 79.7 H Lymphocytes % 13.9 L Monocytes % 5.2 Eosinophils % 0.2 Basophils % 0.3 Nucleated Red Blood Cells % 0.0 Neutrophils # 4.9 Lymphocytes # 0.9 Monocytes # 0.3 Eosinophils # 0.0 Basophils # 0.0 Nucleated Red Blood Cells # 0.0 Sodium Level 134 L Potassium Level 4.2 Chloride Level 93 L Carbon Dioxide Level 24 Anion Gap 21 H Blood Urea Nitrogen 36 #H Creatinine 2.80 H Glucose Level 120 # Calcium Level 8.0 L Phosphorus Level 5.2 H Magnesium Level 1.9 Triglycerides Level 79 Cholesterol Level 67 L LDL Cholesterol, Calculated 20 HDL Cholesterol 31 L Cholesterol/HDL Ratio 2.1 Bedside Glucose 126 140 Medications Medications Current Medications Ferrous Sulfate (Ferrous Sulfate (Ec)) 325 mg DAILY PO Last administered on 08:37; Admin Dose 325 MG; Start 09/27/16 at 09:00 Hydralazine HCl (Apresoline) 10 mg BID PO Last administered on 09/28/16 08:38 ; Admin Dose 10 MG; Start 09/27/16 at 09:00 Metoprolol Succinate (Toprol Xl) 25 mg DAILY PO Last administered on 09/28/16 08:38; Admin Dose 25 MG; Start 09/27/16 at 09:00 Multivit/Ca Carb/ B Cmplx/FA/Prenat ([place]ie[place]Roge) 1 tab DAILY PO Last administered on 09/28/16 08:37; Admin Dose 1 TAB; Start 09/27/16 at 09:00 Polyethylene Glycol (Miralax) 17 gm DAILY PO Last administered on 09/28/16 08: 37; Admin Dose 17 GM; Start 09/27/16 at 09:00 Pantoprazole (Protonix Tab) 40 mg DAILY@06 PO Last administered on 09/28/16 06 :29; Admin Dose 40 MG; Start 09/27/16 at 06:00 Atorvastatin Calcium (Lipitor) 80 mg DAILY@21 PO ; Start 09/27/16 at 21:00 Zolpidem Tartrate (Ambien) 5 mg HS PRN PO INSOMNIA; Start 09/27/16 at 01:00 Acetaminophen (Tylenol Tab) 650 mg Q6H PRN PO PAIN AND OR ELEVATED TEMP; Start 09/27/16 at 01:00 Ondansetron HCl (Zofran Inj) 4 mg Q6H PRN IV NAUSEA AND/OR VOMITING; Start at 01:00 IV Flush (NS 10 ml) 3 ml Q8 IV Last administered on 09/28/16 06:29; Admin Dose 3 ML; Start 09/27/16 at 06:00 Diagnostic Test (Pha) (Accu-Chek) 1 ea 02 XX ; Start 09/28/16 at 02:00 Miscellaneous Information 1 ea NOTE XX ; Start 09/27/16 at 07:30 Glucose (Glutose) 15 gm Q15M PRN PO DECREASED GLUCOSE; Start 09/27/16 at 07:30 Glucose (Glutose) 22.5 gm Q15M PRN PO DECREASED GLUCOSE; Start 09/27/16 at 07: 30 Dextrose (D50w Syringe) 25 ml Q15M PRN IV DECREASED GLUCOSE; Start 09/27/16 at 07:30 Dextrose (D50w Syringe) 50 ml Q15M PRN IV DECREASED GLUCOSE; Start 09/27/16 at 07:30 Glucagon (Glucagen) 1 mg Q15M PRN IM DECREASED GLUCOSE; Start 09/27/16 at 07:30 Glucose (Glutose) 15 gm Q15M PRN BUCCAL DECREASED GLUCOSE; Start 09/27/16 at 07 :30 Acetaminophen/ Hydrocodone Bitart ([place] (10/325)) 1.5 tab Q8H PO Last administered on 09/28/16 08:43; Admin Dose 1.5 TAB; Start 09/27/16 at 15:30 Clonidine (Catapres) 0.1 mg Q6H PRN PO SBP>170; Start 09/27/16 at 12:00 Morphine Sulfate (morphine) 2 mg Q2H PRN IV PAIN Last administered on 12:50; Admin Dose 2 MG; Start 09/27/16 at 22:00 TENISHA DENNIS NP Sep 28, 2016 14:34 TENISHA DENNIS NP Sep 28, 2016 14:34
[2016-09-28 19:57] VITALS: BP 119/56; RESP 18
--- NOTE | 2016-09-28 21:05 | RADRPT ---
Vent Rate: 93 bpm RR Interval: 0 msec [place] Interval: 0 msec QRS Duration: 184 msec QT Interval: 434 msec QTC Interval: 539 msec P-R-T [place]: 0 - -71 - 111 degrees Electronic ventricular pacemaker Electronically Signed By: Bobo Benson [id number]
[2016-09-28] MEDS: MUPIROCIN 2% 22 GM OINT TOP SCH (21:44)
[2016-09-28] MEDS: ATORVASTATIN 80 MG TAB PO SCH (21:44)
[2016-09-29] VITALS (10 sets, daily range): BP systolic 89–127; BP diastolic 44–64; PULSE 68–77; RESP 16–18
[2016-09-29] MEDS: ACCU-CHEK XX SCH (01:26)
[2016-09-29] MEDS: PANTOPRAZOLE (EC) 40 MG TAB PO SCH (06:34)
[2016-09-29] MEDS: LEVOTHYROXINE 88 MCG TAB PO SCH (06:34)
[2016-09-29] MEDS: morphine 2 MG INJ IV PRN ×2 (06:36→18:24)
[2016-09-29] MEDS: HYDROCODONE/APAP (10/325) TAB PO SCH ×4 (07:30→23:30)
[2016-09-29] MEDS: INSULIN ASPART [NOVOLOG] 3 ML PEN SC SCH ×4 (08:15→21:00)
[2016-09-29] MEDS: METOPROLOL (XL) 25 MG TAB PO SCH (08:57)
[2016-09-29] MEDS ORDERED: VANCOMYCIN 750 MG in SOD CHLORIDE 0.9% 150 ML IVPB ONE (09:00)
[2016-09-29] MEDS: FERROUS SULFATE (EC) 325 MG TAB PO SCH (09:45)
[2016-09-29] MEDS: MULTIVIT/CA CARB/B CMPLX/FA TAB PO SCH (09:45)
[2016-09-29] MEDS: SEVELAMER CARBONATE 0.8 GM PKT PO SCH ×3 (09:46→18:00)
[2016-09-29] MEDS: POLYETHYLENE GLYCOL 17 GM PACKET PO SCH (09:46)
[2016-09-29] MEDS: MUPIROCIN 2% 22 GM OINT TOP SCH ×2 (10:03→21:26)
--- NOTE | 2016-09-29 10:22 | PN ---
Date/Time of Note Date/Time of Note DATE: 09/29/16 TIME: 10:18 Assessment/Plan VTE Prophylaxis VTE Prophylaxis Intervention: other Lines/Catheters [facility] Saline Lock Urinary Cath still in place: No Assessment/Plan Chief Complaint/Hosp Course 1. Right lower extremity gangrene. Patient seen by by CT surgeon Dr. mcginnis -Pending angiogram of the lower extremity. Continue antibiotic therapy Continue pain control 2. End-stage renal disease. Plan for hemodialysis today with dialysis today 3. Coronary artery disease. History of cardiomyopathy. The patient is currently stable. 4. Anemia. Monitor hemoglobin and hematocrit. 5. Diabetes. Continue current insulin regimen. 6. Hypertension. Continue current blood pressure regimen. 7. Hypothyroidism. The patient takes Synthroid. 8. GI and DVT prophylaxis. 9. Status post right hip fracture. 10. Mineral bone disorder Monitor calcium phosphorus levels Problems: Subjective 24 Hr Interval Summary Free Text/Dictation Patient seen and examined Awaiting CT angios Dialysis pending today Pain is controlled Exam/Review of Systems Vital Signs Vitals Vital Signs Date Time Temp Pulse Resp B/P Pulse Ox O2 Delivery O2 Flow Rate FiO2 09/29/16 08:34 97.8 79 16 120/57 96 Exam HEENT: Head is normocephalic. Pupils are reactive to light. NECK: Supple. HEART: Regular rate. CHEST: Shows PermCath. ABDOMEN: Soft. Nontender on palpation. No rebound or guarding. EXTREMITIES: Positive for dressing over bilateral lower extremities. There is noted erythema in the right lower extremity. Noted wound. NEUROLOGIC: No focal deficits. Results Result Diagram: 09/28/16 0519 09/28/16518 Results 24 hrs Laboratory Tests Test 09/28/16 12:00 09/28/16 17:19 09/28/16 21:46 09/29/16 05:30 Bedside Glucose 140 146 155 Random Vancomycin Level 7.4 Test 09/29/16 08:47 Bedside Glucose 94 Medications Medications Current Medications Ferrous Sulfate (Ferrous Sulfate (Ec)) 325 mg DAILY PO Last administered on 09:45; Admin Dose 325 MG; Start 09/27/16 at 09:00 Hydralazine HCl (Apresoline) 10 mg BID PO Last administered on 09/28/16 08:38 ; Admin Dose 10 MG; Start 09/27/16 at 09:00 Metoprolol Succinate (Toprol Xl) 25 mg DAILY PO Last administered on 09/28/16 08:38; Admin Dose 25 MG; Start 09/27/16 at 09:00 Multivit/Ca Carb/ B Cmplx/FA/Prenat (Billie-Roge) 1 tab DAILY PO Last administered on 09/29/16 09:45; Admin Dose 1 TAB; Start 09/27/16 at 09:00 Polyethylene Glycol (Miralax) 17 gm DAILY PO Last administered on 09/29/16 09: 46; Admin Dose 17 GM; Start 09/27/16 at 09:00 Pantoprazole (Protonix Tab) 40 mg DAILY@06 PO Last administered on 09/29/16 06 :34; Admin Dose 40 MG; Start 09/27/16 at 06:00 Atorvastatin Calcium (Lipitor) 80 mg DAILY@21 PO Last administered on 21:44; Admin Dose 80 MG; Start 09/27/16 at 21:00 Zolpidem Tartrate (Ambien) 5 mg HS PRN PO INSOMNIA; Start 09/27/16 at 01:00 Acetaminophen (Tylenol Tab) 650 mg Q6H PRN PO PAIN AND OR ELEVATED TEMP; Start 09/27/16 at 01:00 Ondansetron HCl (Zofran Inj) 4 mg Q6H PRN IV NAUSEA AND/OR VOMITING; Start at 01:00 IV Flush (NS 10 ml) 3 ml Q8 IV Last administered on 09/29/16 06:36; Admin Dose 3 ML; Start 09/27/16 at 06:00 Diagnostic Test (Pha) (Accu-Chek) 1 ea 02 XX ; Start 09/28/16 at 02:00 Miscellaneous Information 1 ea NOTE XX ; Start 09/27/16 at 07:30 Glucose (Glutose) 15 gm Q15M PRN PO DECREASED GLUCOSE; Start 09/27/16 at 07:30 Glucose (Glutose) 22.5 gm Q15M PRN PO DECREASED GLUCOSE; Start 09/27/16 at 07: 30 Dextrose (D50w Syringe) 25 ml Q15M PRN IV DECREASED GLUCOSE; Start 09/27/16 at 07:30 Dextrose (D50w Syringe) 50 ml Q15M PRN IV DECREASED GLUCOSE; Start 09/27/16 at 07:30 Glucagon (Glucagen) 1 mg Q15M PRN IM DECREASED GLUCOSE; Start 09/27/16 at 07:30 Glucose (Glutose) 15 gm Q15M PRN BUCCAL DECREASED GLUCOSE; Start 09/27/16 at 07 :30 Acetaminophen/ Hydrocodone Bitart ([place] ()) 1.5 tab Q8H PO Last administered on 09/29/16 09:46; Admin Dose 1.5 TAB; Start 09/27/16 at 15:30 Clonidine (Catapres) 0.1 mg Q6H PRN PO SBP>170; Start 09/27/16 at 12:00 Morphine Sulfate (morphine) 2 mg Q2H PRN IV PAIN Last administered on 06:36; Admin Dose 2 MG; Start 09/27/16 at 22:00 Mupirocin 1 applic 1 applic BID TOP Last administered on 09/29/16 10:03; Admin Dose 1 APPLIC; Start 09/28/16 at 21:00 Vancomycin HCl/ Sodium Chloride (Vancocin/NS) 150 ml @ 75 mls/hr ONCE ONCE IVPB Last administered on 09/29/16 09:45; Admin Dose 75 MLS/HR; Start at 09:00; Stop 09/29/16 at 10:59 BRANDI ERICKSON DO Sep 29, 2016 10:22
--- NOTE | 2016-09-29 13:59 | CONS ---
Date/Time of Note Date/Time of Note DATE: 09/29/16 TIME: 13:54 Assessment/Plan Assessment/Plan Chief Complaint/Hosp Course IMP: 1.Cardiomyopathy with low EF 2.HTN 3.HL 4.cad 5. Pad s/p peripheral bypass 6. ESRD on HD 7. Non-healing LE wound 8. PPM 9. Anemia 10. Hyponatremia 11.Hypothyroid Recc: -Tele -serial ecg's -Continue BB/hydralazine -Continue statin -HD for volume removal -Continue abx's -Local wound care -Pain control -For LE angio today with vascular surgery Problems: Consultation Date/Type/Reason Admit Date/Time Sep 26, 2016 at 16:53 Initial Consult Date 09/27/2016 Type of Consultation: cardiology Reason for Consultation cardiomyopathy Referring Provider: BRANDI ERICKSON DO Exam/Review of Systems Vital Signs Vitals Vital Signs Date Time Temp Pulse Resp B/P Pulse Ox O2 Delivery O2 Flow Rate FiO2 09/29/16 08:34 97.8 79 16 120/57 96 Exam Review of Systems: CONSTITUTIONAL: No fevers, chills. PULMONARY: No sob CARDIOVASCULAR: No chest pain/palpitations GASTROINTESTINAL: No nausea/vomiting. GENITOURINARY: No hematuria/dysuria. MUSCULOSKELETAL: No myagias/arthalgias. PSYCHIATRIC: The patient denies depression. NEUROLOGIC: No weakness Constitutional: alert Psych: no complaints Head: normocephalic ENMT: mucosa pink and moist Neck: jvd, supple Respiratory: diminished breath sounds Cardiovascular: regular rate and rhythm Gastrointestinal: non-tender, soft Musculoskeletal: muscle tone (normal) Extremities: edema (none) Neurological: other (No focal deficits) Results Result Diagram: 09/28/16 0519 09/28/16 05 Results 24 hrs Laboratory Tests Test 09/28/16 17:19 09/28/16 21:46 09/29/16 05:30 09/29/16 08:47 Bedside Glucose 146 155 94 Random Vancomycin Level 7.4 Test 09/29/16 12:41 Bedside Glucose 141 Medications Medications Current Medications Ferrous Sulfate (Ferrous Sulfate (Ec)) 325 mg DAILY PO Last administered on 09:45; Admin Dose 325 MG; Start 09/27/16 at 09:00 Hydralazine HCl (Apresoline) 10 mg BID PO Last administered on 09/28/16 08:38 ; Admin Dose 10 MG; Start 09/27/16 at 09:00 Metoprolol Succinate (Toprol Xl) 25 mg DAILY PO Last administered on 09/28/16 08:38; Admin Dose 25 MG; Start 09/27/16 at 09:00 Multivit/Ca Carb/ B Cmplx/FA/Prenat (Billie-Roge) 1 tab DAILY PO Last administered on 09/29/16 09:45; Admin Dose 1 TAB; Start 09/27/16 at 09:00 Polyethylene Glycol (Miralax) 17 gm DAILY PO Last administered on 09/29/16 09: 46; Admin Dose 17 GM; Start 09/27/16 at 09:00 Pantoprazole (Protonix Tab) 40 mg DAILY@06 PO Last administered on 09/29/16 06 :34; Admin Dose 40 MG; Start 09/27/16 at 06:00 Atorvastatin Calcium (Lipitor) 80 mg DAILY@21 PO Last administered on 21:44; Admin Dose 80 MG; Start 09/27/16 at 21:00 Zolpidem Tartrate (Ambien) 5 mg HS PRN PO INSOMNIA; Start 09/27/16 at 01:00 Acetaminophen (Tylenol Tab) 650 mg Q6H PRN PO PAIN AND OR ELEVATED TEMP; Start 09/27/16 at 01:00 Ondansetron HCl (Zofran Inj) 4 mg Q6H PRN IV NAUSEA AND/OR VOMITING; Start at 01:00 IV Flush (NS 10 ml) 3 ml Q8 IV Last administered on 09/29/16 12:49; Admin Dose 3 ML; Start 09/27/16 at 06:00 Diagnostic Test (Pha) (Accu-Chek) 1 ea 02 XX ; Start 09/28/16 at 02:00 Miscellaneous Information 1 ea NOTE XX ; Start 09/27/16 at 07:30 Glucose (Glutose) 15 gm Q15M PRN PO DECREASED GLUCOSE; Start 09/27/16 at 07:30 Glucose (Glutose) 22.5 gm Q15M PRN PO DECREASED GLUCOSE; Start 09/27/16 at 07: 30 Dextrose (D50w Syringe) 25 ml Q15M PRN IV DECREASED GLUCOSE; Start 7/19/17 at 07:30 Dextrose (D50w Syringe) 50 ml Q15M PRN IV DECREASED GLUCOSE; Start 09/27/16 at 07:30 Glucagon (Glucagen) 1 mg Q15M PRN IM DECREASED GLUCOSE; Start 09/27/16 at 07:30 Glucose (Glutose) 15 gm Q15M PRN BUCCAL DECREASED GLUCOSE; Start 09/27/16 at 07 :30 Acetaminophen/ Hydrocodone Bitart ([place] (10/325)) 1.5 tab Q8H PO Last administered on 09/29/16 09:46; Admin Dose 1.5 TAB; Start 09/27/16 at 15:30 Clonidine (Catapres) 0.1 mg Q6H PRN PO SBP>170; Start 09/27/16 at 12:00 Morphine Sulfate (morphine) 2 mg Q2H PRN IV PAIN Last administered on 06:36; Admin Dose 2 MG; Start 09/27/16 at 22:00 Mupirocin 1 applic 1 applic BID TOP Last administered on 09/29/16 10:03; Admin Dose 1 APPLIC; Start 09/28/16 at 21:00 Dextrose/Sodium Chloride (D5-1/2ns) 1,000 ml @ 50 mls/hr Q20H IV ; Start at 13:30 YI RODRIGUEZ Sep 29, 2016 13:59
[2016-09-29] MEDS: DEXTROSE 5%-0.45% NACL 1,000 ML IV SCH (14:46)
[2016-09-29] MEDS ORDERED: LIDOCAINE 1% (MDV) 20 ML INJ ONE (15:51)
[2016-09-29] MEDS ORDERED: FENTAnyl 50 MCG/ML VIAL ONE (15:52)
[2016-09-29] MEDS ORDERED: MIDAZOLAM 1 MG/ML 2 ML INJ ONE (15:52)
[2016-09-29] MEDS ORDERED: HEPARIN 1000 UNITS/ML 10 ML INJ ONE (17:45)
[2016-09-29] MEDS: ATORVASTATIN 40 MG TAB PO SCH (21:27)
[2016-09-30] MEDS: ACCU-CHEK XX SCH (01:38)
[2016-09-30] MEDS: PANTOPRAZOLE (EC) 40 MG TAB PO SCH (06:07)
[2016-09-30] MEDS: LEVOTHYROXINE 88 MCG TAB PO SCH (06:07)
[2016-09-30 06:16] LABS: BASOPHILS % 0.4 % (0.0-2.0); EOSINOPHILS % 0.4 % (0.0-7.0); HEMATOCRIT 33.3 % (37.0-47.0); HEMOGLOBIN 10.8 g/dl (12.0-16.0); LYMPHOCYTES # 1.2 10^3/ul (0.8-2.9); LYMPHOCYTES % 17.6 % (15.0-51.0); MEAN CORPUSCULAR HEMOGLOBIN 28.9 pg (29.0-33.0); MEAN CORPUSCULAR HGB CONC 32.4 g/dl (32.0-37.0); MEAN PLATELET VOLUME 11.7 fl (7.4-10.4); MONOCYTE # 0.6 10^3/ul (0.3-0.9); MONOCYTES % 8.7 % (0.0-11.0); NEUTROPHIL # 4.9 10^3/ul (1.6-7.5); NEUTROPHILS % 72.5 % (39.0-77.0); PLATELET COUNT 103 10^3/UL (140-415); RED BLOOD COUNT 3.74 10^6/ul (4.20-5.40); WHITE BLOOD COUNT 6.8 10^3/ul (4.8-10.8)
[2016-09-30 06:58] LABS: CREATININE 2.3 mg/dl (0.44-1.00); PHOSPHORUS 4.5 mg/dl (2.5-4.9); POTASSIUM 3.7 mmol/L (3.5-5.1)
[2016-09-30 07:49] VITALS: BP 132/60; RESP 18
[2016-09-30] MEDS: MULTIVIT/CA CARB/B CMPLX/FA TAB PO SCH (07:55)
[2016-09-30] MEDS: FERROUS SULFATE (EC) 325 MG TAB PO SCH (07:56)
[2016-09-30] MEDS: HYDROCODONE/APAP (10/325) TAB PO SCH ×3 (07:56→23:30)
[2016-09-30] MEDS: METOPROLOL (XL) 25 MG TAB PO SCH (07:58)
[2016-09-30] MEDS: MUPIROCIN 2% 22 GM OINT TOP SCH ×2 (07:58→21:13)
[2016-09-30] MEDS: POLYETHYLENE GLYCOL 17 GM PACKET PO SCH (07:58)
[2016-09-30] MEDS: SEVELAMER CARBONATE 0.8 GM PKT PO SCH ×3 (07:58→17:39)
[2016-09-30] MEDS: DEXTROSE 5%-0.45% NACL 1,000 ML IV SCH (08:02)
[2016-09-30] MEDS: INSULIN ASPART [NOVOLOG] 3 ML PEN SC SCH ×4 (08:02→21:00)
--- NOTE | 2016-09-30 10:31 | PN ---
Date/Time of Note Date/Time of Note DATE: 09/30/16 TIME: 10:30 Assessment/Plan Lines/Catheters IV Catheter Type (from Nrsg): Saline Lock [place] in Place (from Nrsg): No Assessment/Plan Chief Complaint/Hosp Course Status post angiogram and iliac artery angioplasty and stent placement Patient with significant bilateral lower extremity infrapopliteal disease Patient with significant superficial femoral artery disease bilaterally Gangrene of the feet Plan for intervention bilateral lower extremity next week Discussed with the referring physicians His cussed with the daughter Problems: Subjective 24 Hr Interval Summary Constitutional: improved Pain Control: mild Exam/Review of Systems Vital Signs Vitals Vital Signs Date Time Temp Pulse Resp B/P Pulse Ox O2 Delivery O2 Flow Rate FiO2 09/30/16 07:49 98.0 85 18 132/60 96 Intake and Output 09/29/16 09/29/16 09/30/16 14:59 22:59 06:59 Intake Total 970 ml 990 ml 800 ml Output Total 1500 ml Balance -530 ml 990 ml 800 ml Exam ENMT: mucosa pink and moist, nl external ears & nose, nl lips & teeth, nl nasal mucosa & septum Neck: non-tender, supple Respiratory: clear to auscultation, normal air movement Cardiovascular: nl pulses, regular rate and rhythm Gastrointestinal: nl liver, spleen, non-tender, soft Results Result Diagram: 09/30/16 0535 09/30/16 0525 BALDOMERO PALOMO MD Sep 30, 2016 10:31
[2016-09-30] MEDS: morphine 2 MG INJ IV PRN ×2 (12:31→21:11)
[2016-09-30 13:16] VITALS: BP 101/53; RESP 18
--- NOTE | 2016-09-30 14:04 | CONS ---
Date/Time of Note Date/Time of Note DATE: 09/30/16 TIME: 14:01 Assessment/Plan Assessment/Plan Chief Complaint/Hosp Course alert, looks comfortable, no fevers, family at bedside Microbiology: Blood culture growing staph species nares swab came back positive for MRSA Antibiotics: vancomycin Physical examination: Well-developed fragile elderly woman who is in no distress. Head atraumatic normocephalic sclera nonicteric bugle mucosa dry neck is supple chest rise symmetrical breath sounds diminished bases heart S1- S2 abdomen soft bowel tones present extremities right foot dressing intact Assessment: #1. Bacteremia==> Staph #1 right lower extremity gangrene #2 severe peripheral arterial disease, s/p angiogram and iliac artery angioplasty and stent placement 09/29/16 #3 end-stage renal disease, hemodialysis dependent #4 diabetes #5 coronary artery disease with a history of cardiomyopathy #6. Left upper extremity AV fistula Plan: Stable, continue Vanco, add Levaquin, follow podiatry and vascular recommendations==> Patient with significant bilateral lower extremity infrapopliteal disease Patient with significant superficial femoral artery disease bilaterally, will require vascular intervention next week DW pt/family/RN Problems: Consultation Date/Type/Reason Admit Date/Time Sep 26, 2016 at 16:53 Type of Consultation: id Referring Provider: BRANDI ERICKSON DO Exam/Review of Systems Vital Signs Vitals Vital Signs Date Time Temp Pulse Resp B/P Pulse Ox O2 Delivery O2 Flow Rate FiO2 09/30/16 13:16 98.0 88 18 101/53 100 Intake and Output 09/29/16 09/29/16 09/30/16 15:00 23:00 07:00 Intake Total 970 ml 990 ml 800 ml Output Total 1500 ml Balance -530 ml 990 ml 800 ml Results Result Diagram: 09/30/16 0535 09/30/16 0525 Results 24 hrs Laboratory Tests Test 09/29/16 18:23 09/29/16 21:24 09/30/16 05:25 09/30/16 05:35 Bedside Glucose 117 156 Sodium Level 137 Potassium Level 3.7 Chloride Level 96 L Carbon Dioxide Level 24 Anion Gap 21 H Blood Urea Nitrogen 24 H Creatinine 2.30 H Glucose Level 208 Calcium Level 8.0 L Phosphorus Level 4.5 Magnesium Level 2.0 White Blood Count 6.8 Red Blood Count 3.74 L Hemoglobin 10.8 L Hematocrit 33.3 L Mean Corpuscular Volume 89.0 Mean Corpuscular Hemoglobin 28.9 L Mean Corpuscular Hemoglobin Concent 32.4 Red Cell Distribution Width 18.0 H Platelet Count 103 #L Mean Platelet Volume 11.7 #H Neutrophils % 72.5 Lymphocytes % 17.6 Monocytes % 8.7 Eosinophils % 0.4 Basophils % 0.4 Nucleated Red Blood Cells % 0.0 Neutrophils # 4.9 Lymphocytes # 1.2 Monocytes # 0.6 Eosinophils # 0.0 Basophils # 0.0 Nucleated Red Blood Cells # 0.0 Test 09/30/16 08:00 09/30/16 12:23 Bedside Glucose 198 225 H Medications Medications Current Medications Ferrous Sulfate (Ferrous Sulfate (Ec)) 325 mg DAILY PO Last administered on 07:56; Admin Dose 325 MG; Start 09/27/16 at 09:00 Hydralazine HCl (Apresoline) 10 mg BID PO Last administered on 09/30/16 08:02 ; Admin Dose 10 MG; Start 09/27/16 at 09:00 Metoprolol Succinate (Toprol Xl) 25 mg DAILY PO Last administered on 09/30/16 07:58; Admin Dose 25 MG; Start 09/27/16 at 09:00 Multivit/Ca Carb/ B Cmplx/FA/Prenat ([place]ie-Roge) 1 tab DAILY PO Last administered on 09/30/16 07:55; Admin Dose 1 TAB; Start 09/27/16 at 09:00 Polyethylene Glycol (Miralax) 17 gm DAILY PO Last administered on 09/30/16 07: 58; Admin Dose 17 GM; Start 09/27/16 at 09:00 Pantoprazole (Protonix Tab) 40 mg DAILY@06 PO Last administered on 09/30/16 06 :07; Admin Dose 40 MG; Start 09/27/16 at 06:00 Zolpidem Tartrate (Ambien) 5 mg HS PRN PO INSOMNIA; Start 09/27/16 at 01:00 Acetaminophen (Tylenol Tab) 650 mg Q6H PRN PO PAIN AND OR ELEVATED TEMP; Start 09/27/16 at 01:00 Ondansetron HCl (Zofran Inj) 4 mg Q6H PRN IV NAUSEA AND/OR VOMITING; Start at 01:00 IV Flush (NS 10 ml) 3 ml Q8 IV Last administered on 09/30/16 06:07; Admin Dose 3 ML; Start 09/27/16 at 06:00 Diagnostic Test (Pha) (Accu-Chek) 1 ea 02 XX ; Start 09/28/16 at 02:00 Miscellaneous Information 1 ea NOTE XX ; Start 09/27/16 at 07:30 Glucose (Glutose) 15 gm Q15M PRN PO DECREASED GLUCOSE; Start 09/27/16 at 07:30 Glucose (Glutose) 22.5 gm Q15M PRN PO DECREASED GLUCOSE; Start 09/27/16 at 07: 30 Dextrose (D50w Syringe) 25 ml Q15M PRN IV DECREASED GLUCOSE; Start 09/27/16 at 07:30 Dextrose (D50w Syringe) 50 ml Q15M PRN IV DECREASED GLUCOSE; Start 09/27/16 at 07:30 Glucagon (Glucagen) 1 mg Q15M PRN IM DECREASED GLUCOSE; Start 09/27/16 at 07:30 Glucose (Glutose) 15 gm Q15M PRN BUCCAL DECREASED GLUCOSE; Start 09/27/16 at 07 :30 Acetaminophen/ Hydrocodone Bitart ([place] (10/325)) 1.5 tab Q8H PO Last administered on 09/30/16 07:56; Admin Dose 1.5 TAB; Start 09/27/16 at 15:30 Clonidine (Catapres) 0.1 mg Q6H PRN PO SBP>170; Start 09/27/16 at 12:00 Morphine Sulfate (morphine) 2 mg Q2H PRN IV PAIN Last administered on 12:31; Admin Dose 2 MG; Start 09/27/16 at 22:00 Mupirocin 1 applic 1 applic BID TOP Last administered on 09/30/16 07:58; Admin Dose 1 APPLIC; Start 09/28/16 at 21:00 Dextrose/Sodium Chloride (D5-1/2ns) 1,000 ml @ 50 mls/hr Q20H IV Last administered on 09/29/16 14:46; Admin Dose 50 MLS/HR; Start 09/29/16 at 13:30 Atorvastatin Calcium (Lipitor) 40 mg DAILY@21 PO Last administered on 21:27; Admin Dose 40 MG; Start 09/29/16 at 21:00 TENISHA DENNIS NP Sep 30, 2016 14:04
--- NOTE | 2016-09-30 16:15 | CONS ---
Date/Time of Note Date/Time of Note DATE: 09/30/16 TIME: 16:10 Assessment/Plan Assessment/Plan Additional Assessment/Plan Status post angiogram and iliac artery angioplasty and stent placement Severe bilateral lower extremity infrapopliteal disease and superficial femoral artery disease Gangrene of the feet CAD with Cardiomyopathy with low EF HTN HLP Anemia ESRD on HD s/p PPM Hypothyroid Scheduled for intervention next week Continue Metoprolol Continue Hydralazine Continue Insulin HD a scheduled Continue Synthroid Consultation Date/Type/Reason Admit Date/Time Sep 26, 2016 at 16:53 Psychological: no complaints Social History Smoking Status: Never smoker Exam/Review of Systems Vital Signs Vitals Vital Signs Date Time Temp Pulse Resp B/P Pulse Ox O2 Delivery O2 Flow Rate FiO2 09/30/16 13:16 98.0 88 18 101/53 100 Intake and Output 09/29/16 09/29/16 09/30/16 15:00 23:00 07:00 Intake Total 970 ml 990 ml 800 ml Output Total 1500 ml Balance -530 ml 990 ml 800 ml Exam Constitutional: alert Head: atraumatic, normocephalic Cardiovascular: regular rate and rhythm Gastrointestinal: nl liver, spleen, soft Musculoskeletal: other (gangrene of left heel) Results Result Diagram: 09/30/16 0535 09/30/16 0525 Results 24 hrs Laboratory Tests Test 09/29/16 18:23 09/29/16 21:24 09/30/16 05:25 09/30/16 05:35 Bedside Glucose 117 156 Sodium Level 137 Potassium Level 3.7 Chloride Level 96 L Carbon Dioxide Level 24 Anion Gap 21 H Blood Urea Nitrogen 24 H Creatinine 2.30 H Glucose Level 208 Calcium Level 8.0 L Phosphorus Level 4.5 Magnesium Level 2.0 White Blood Count 6.8 Red Blood Count 3.74 L Hemoglobin 10.8 L Hematocrit 33.3 L Mean Corpuscular Volume 89.0 Mean Corpuscular Hemoglobin 28.9 L Mean Corpuscular Hemoglobin Concent 32.4 Red Cell Distribution Width 18.0 H Platelet Count 103 #L Mean Platelet Volume 11.7 #H Neutrophils % 72.5 Lymphocytes % 17.6 Monocytes % 8.7 Eosinophils % 0.4 Basophils % 0.4 Nucleated Red Blood Cells % 0.0 Neutrophils # 4.9 Lymphocytes # 1.2 Monocytes # 0.6 Eosinophils # 0.0 Basophils # 0.0 Nucleated Red Blood Cells # 0.0 Test 09/30/16 08:00 09/30/16 12:23 Bedside Glucose 198 225 H Medications Medications Current Medications Ferrous Sulfate (Ferrous Sulfate (Ec)) 325 mg DAILY PO Last administered on 07:56; Admin Dose 325 MG; Start 09/27/16 at 09:00 Hydralazine HCl (Apresoline) 10 mg BID PO Last administered on 09/30/16 08:02 ; Admin Dose 10 MG; Start 09/27/16 at 09:00 Metoprolol Succinate (Toprol Xl) 25 mg DAILY PO Last administered on 09/30/16 07:58; Admin Dose 25 MG; Start 09/27/16 at 09:00 Multivit/Ca Carb/ B Cmplx/FA/Prenat (Billie-Roge) 1 tab DAILY PO Last administered on 09/30/16 07:55; Admin Dose 1 TAB; Start 09/27/16 at 09:00 Polyethylene Glycol (Miralax) 17 gm DAILY PO Last administered on 09/30/16 07: 58; Admin Dose 17 GM; Start 09/27/16 at 09:00 Pantoprazole (Protonix Tab) 40 mg DAILY@06 PO Last administered on 09/30/16 06 :07; Admin Dose 40 MG; Start 09/27/16 at 06:00 Zolpidem Tartrate (Ambien) 5 mg HS PRN PO INSOMNIA; Start 09/27/16 at 01:00 Acetaminophen (Tylenol Tab) 650 mg Q6H PRN PO PAIN AND OR ELEVATED TEMP; Start 09/27/16 at 01:00 Ondansetron HCl (Zofran Inj) 4 mg Q6H PRN IV NAUSEA AND/OR VOMITING; Start at 01:00 IV Flush (NS 10 ml) 3 ml Q8 IV Last administered on 09/30/16 06:07; Admin Dose 3 ML; Start 09/27/16 at 06:00 Diagnostic Test (Pha) (Accu-Chek) 1 ea 02 XX ; Start 09/28/16 at 02:00 Miscellaneous Information 1 ea NOTE XX ; Start 09/27/16 at 07:30 Glucose (Glutose) 15 gm Q15M PRN PO DECREASED GLUCOSE; Start 09/27/16 at 07:30 Glucose (Glutose) 22.5 gm Q15M PRN PO DECREASED GLUCOSE; Start 09/27/16 at 07: 30 Dextrose (D50w Syringe) 25 ml Q15M PRN IV DECREASED GLUCOSE; Start 09/27/16 at 07:30 Dextrose (D50w Syringe) 50 ml Q15M PRN IV DECREASED GLUCOSE; Start 09/27/16 at 07:30 Glucagon (Glucagen) 1 mg Q15M PRN IM DECREASED GLUCOSE; Start 09/27/16 at 07:30 Glucose (Glutose) 15 gm Q15M PRN BUCCAL DECREASED GLUCOSE; Start 09/27/16 at 07 :30 Acetaminophen/ Hydrocodone Bitart ([place] (10/325)) 1.5 tab Q8H PO Last administered on 09/30/16 07:56; Admin Dose 1.5 TAB; Start 09/27/16 at 15:30 Clonidine (Catapres) 0.1 mg Q6H PRN PO SBP>170; Start 09/27/16 at 12:00 Morphine Sulfate (morphine) 2 mg Q2H PRN IV PAIN Last administered on 12:31; Admin Dose 2 MG; Start 09/27/16 at 22:00 Mupirocin 1 applic 1 applic BID TOP Last administered on 09/30/16 07:58; Admin Dose 1 APPLIC; Start 09/28/16 at 21:00 Dextrose/Sodium Chloride (D5-1/2ns) 1,000 ml @ 50 mls/hr Q20H IV Last administered on 09/29/16 14:46; Admin Dose 50 MLS/HR; Start 09/29/16 at 13:30 Atorvastatin Calcium (Lipitor) 40 mg DAILY@21 PO Last administered on 21:27; Admin Dose 40 MG; Start 09/29/16 at 21:00 Levofloxacin (Levaquin) 250 mg Q48H PO ; Start 09/30/16 at 15:00 ALBA SHEPPARD M.D. Sep 30, 2016 16:15
[2016-09-30] MEDS: LEVOFLOXACIN 250 MG TAB PO SCH (17:40)
[2016-09-30 19:49] VITALS: BP 115/61; RESP 20
[2016-09-30] MEDS: ATORVASTATIN 40 MG TAB PO SCH (21:12)
[2016-10-01 02:00] VITALS: BP 121/56; RESP 18
[2016-10-01] MEDS: ACCU-CHEK XX SCH (02:00)
[2016-10-01] MEDS: morphine 2 MG INJ IV PRN ×2 (05:36→13:05)
[2016-10-01] MEDS: PANTOPRAZOLE (EC) 40 MG TAB PO SCH (06:33)
[2016-10-01] MEDS: LEVOTHYROXINE 88 MCG TAB PO SCH (06:33)
[2016-10-01 07:39] VITALS: BP 119/57; RESP 20
[2016-10-01] MEDS: INSULIN ASPART [NOVOLOG] 3 ML PEN SC SCH ×4 (08:15→21:42)
[2016-10-01] MEDS: SEVELAMER CARBONATE 0.8 GM PKT PO SCH (08:39)
[2016-10-01] MEDS: POLYETHYLENE GLYCOL 17 GM PACKET PO SCH (08:39)
[2016-10-01] MEDS: METOPROLOL (XL) 25 MG TAB PO SCH (08:39)
[2016-10-01] MEDS: FERROUS SULFATE (EC) 325 MG TAB PO SCH (08:39)
[2016-10-01] MEDS: MULTIVIT/CA CARB/B CMPLX/FA TAB PO SCH (08:40)
[2016-10-01] MEDS: HYDROCODONE/APAP (10/325) TAB PO SCH ×3 (08:41→23:30)
[2016-10-01] MEDS: MUPIROCIN 2% 22 GM OINT TOP SCH ×2 (08:41→21:28)
[2016-10-01] MEDS: SEVELAMER 800 MG TAB PO SCH ×2 (13:04→17:21)
[2016-10-01 14:20] VITALS: BP 109/56; RESP 20
--- NOTE | 2016-10-01 14:43 | CONS ---
Date/Time of Note Date/Time of Note DATE: 10/01/16 TIME: 14:41 Assessment/Plan Assessment/Plan Additional Assessment/Plan Status post angiogram and iliac artery angioplasty and stent placement Severe bilateral lower extremity infrapopliteal disease and superficial femoral artery disease Gangrene of the feet CAD with Cardiomyopathy with low EF HTN HLP Anemia ESRD on HD s/p PPM Hypothyroid Scheduled for intervention next week Continue Metoprolol Continue Hydralazine Continue Insulin HD a scheduled Continue Synthroid Consultation Date/Type/Reason Admit Date/Time Sep 26, 2016 at 16:53 Initial Consult Date Type of Consultation: id Referring Provider: BRANDI ERICKSON DO Exam/Review of Systems Vital Signs Vitals Vital Signs Date Time Temp Pulse Resp B/P Pulse Ox O2 Delivery O2 Flow Rate FiO2 10/01/16 14:20 97.5 75 20 109/56 95 Intake and Output 09/30/16 09/30/16 10/01/16 15:00 23:00 07:00 Intake Total 320 ml Balance 320 ml Exam Constitutional: alert Head: atraumatic, normocephalic Cardiovascular: regular rate and rhythm Gastrointestinal: nl liver, spleen, soft Results Result Diagram: 09/30/16 0535 09/30/16 0525 Results 24 hrs Laboratory Tests Test 09/30/16 17:18 09/30/16 21:14 10/01/16 08:06 10/01/16 12:09 Bedside Glucose 144 98 80 104 Medications Medications Current Medications Ferrous Sulfate (Ferrous Sulfate (Ec)) 325 mg DAILY PO Last administered on 08:39; Admin Dose 325 MG; Start 09/27/16 at 09:00 Hydralazine HCl (Apresoline) 10 mg BID PO Last administered on 10/01/16 08:40 ; Admin Dose 10 MG; Start 09/27/16 at 09:00 Metoprolol Succinate (Toprol Xl) 25 mg DAILY PO Last administered on 10/01/16 08:39; Admin Dose 25 MG; Start 09/27/16 at 09:00 Multivit/Ca Carb/ B Cmplx/FA/Prenat (Billie-Roge) 1 tab DAILY PO Last administered on 10/01/16 08:40; Admin Dose 1 TAB; Start 09/27/16 at 09:00 Polyethylene Glycol (Miralax) 17 gm DAILY PO Last administered on 10/01/16 08: 39; Admin Dose 17 GM; Start 09/27/16 at 09:00 Pantoprazole (Protonix Tab) 40 mg DAILY@06 PO Last administered on 10/01/16 06 :33; Admin Dose 40 MG; Start 09/27/16 at 06:00 Zolpidem Tartrate (Ambien) 5 mg HS PRN PO INSOMNIA; Start 09/27/16 at 01:00 Acetaminophen (Tylenol Tab) 650 mg Q6H PRN PO PAIN AND OR ELEVATED TEMP; Start 09/27/16 at 01:00 Ondansetron HCl (Zofran Inj) 4 mg Q6H PRN IV NAUSEA AND/OR VOMITING; Start at 01:00 IV Flush (NS 10 ml) 3 ml Q8 IV Last administered on 10/01/16 06:32; Admin Dose 3 ML; Start 09/27/16 at 06:00 Diagnostic Test (Pha) (Accu-Chek) 1 ea 02 XX ; Start 09/28/16 at 02:00 Miscellaneous Information 1 ea NOTE XX ; Start 09/27/16 at 07:30 Glucose (Glutose) 15 gm Q15M PRN PO DECREASED GLUCOSE; Start 09/27/16 at 07:30 Glucose (Glutose) 22.5 gm Q15M PRN PO DECREASED GLUCOSE; Start 09/27/16 at 07: 30 Dextrose (D50w Syringe) 25 ml Q15M PRN IV DECREASED GLUCOSE; Start 09/27/16 at 07:30 Dextrose (D50w Syringe) 50 ml Q15M PRN IV DECREASED GLUCOSE; Start 09/27/16 at 07:30 Glucagon (Glucagen) 1 mg Q15M PRN IM DECREASED GLUCOSE; Start 09/27/16 at 07:30 Glucose (Glutose) 15 gm Q15M PRN BUCCAL DECREASED GLUCOSE; Start 09/27/16 at 07 :30 Acetaminophen/ Hydrocodone Bitart ([place] (10/325)) 1.5 tab Q8H PO Last administered on 10/01/16 08:41; Admin Dose 1.5 TAB; Start 09/27/16 at 15:30 Clonidine (Catapres) 0.1 mg Q6H PRN PO SBP>170; Start 09/27/16 at 12:00 Morphine Sulfate (morphine) 2 mg Q2H PRN IV PAIN Last administered on 13:05; Admin Dose 2 MG; Start 09/27/16 at 22:00 Mupirocin (Bactroban) 1 applic BID TOP Last administered on 10/01/16 08:41; Admin Dose 1 APPLIC; Start 09/28/16 at 21:00 Atorvastatin Calcium (Lipitor) 40 mg DAILY@21 PO Last administered on 21:12; Admin Dose 40 MG; Start 09/29/16 at 21:00 Levofloxacin (Levaquin) 250 mg Q48H PO Last administered on 09/30/16 17:40; Admin Dose 250 MG; Start 09/30/16 at 15:00 Miscellaneous Information (*Rx Drug Level Order Reminder*) RANDOM VANCOMYCIN LEVEL 7... ONCE ONCE XX ; Start 10/02/16 at 05:00; Stop 10/02/16 at 05:01 ALBA SHEPPARD M.D. Oct 01, 2016 14:43
[2016-10-01] MEDS: ONDANSETRON 4 MG INJ IV PRN (15:02)
--- NOTE | 2016-10-01 15:04 | CONS ---
Date/Time of Note Date/Time of Note DATE: 10/01/16 TIME: 15:03 Assessment/Plan Assessment/Plan Chief Complaint/Hosp Course Sleeping, looks comfortable, no fevers Microbiology: Blood culture growing staph species nares swab came back positive for MRSA Antibiotics: vancomycin Levaquin Physical examination: Well-developed fragile elderly woman who is in no distress. Head atraumatic normocephalic sclera nonicteric bugle mucosa dry neck is supple chest rise symmetrical breath sounds diminished bases heart S1- S2 abdomen soft bowel tones present extremities right foot dressing intact Assessment: #1. Bacteremia==> Staph #1 right lower extremity gangrene #2 severe peripheral arterial disease, s/p angiogram and iliac artery angioplasty and stent placement 09/29/16 #3 end-stage renal disease, hemodialysis dependent #4 diabetes #5 coronary artery disease with a history of cardiomyopathy #6. Left upper extremity AV fistula Plan: Stable, continue antibiotic, follow podiatry and vascular recommendations= => Patient with significant bilateral lower extremity infrapopliteal disease Patient with significant superficial femoral artery disease bilaterally, will require vascular intervention next week DW pt/family/RN Problems: Consultation Date/Type/Reason Admit Date/Time Sep 26, 2016 at 16:53 Type of Consultation: id Referring Provider: BRANDI ERICKSON DO Exam/Review of Systems Vital Signs Vitals Vital Signs Date Time Temp Pulse Resp B/P Pulse Ox O2 Delivery O2 Flow Rate FiO2 10/01/16 14:20 97.5 75 20 109/56 95 Intake and Output 09/30/16 09/30/16 10/01/16 15:00 23:00 07:00 Intake Total 320 ml Balance 320 ml Results Result Diagram: 09/30/16 0535 09/30/16 0525 Results 24 hrs Laboratory Tests Test 09/30/16 17:18 09/30/16 21:14 10/01/16 08:06 10/01/16 12:09 Bedside Glucose 144 98 80 104 Medications Medications Current Medications Ferrous Sulfate (Ferrous Sulfate (Ec)) 325 mg DAILY PO Last administered on 08:39; Admin Dose 325 MG; Start 09/27/16 at 09:00 Hydralazine HCl (Apresoline) 10 mg BID PO Last administered on 10/01/16 08:40 ; Admin Dose 10 MG; Start 09/27/16 at 09:00 Metoprolol Succinate (Toprol Xl) 25 mg DAILY PO Last administered on 10/01/16 08:39; Admin Dose 25 MG; Start 09/27/16 at 09:00 Multivit/Ca Carb/ B Cmplx/FA/Prenat (Billie-Roge) 1 tab DAILY PO Last administered on 10/01/16 08:40; Admin Dose 1 TAB; Start 09/27/16 at 09:00 Polyethylene Glycol (Miralax) 17 gm DAILY PO Last administered on 10/01/16 08: 39; Admin Dose 17 GM; Start 09/27/16 at 09:00 Pantoprazole (Protonix Tab) 40 mg DAILY@06 PO Last administered on 10/01/16 06 :33; Admin Dose 40 MG; Start 09/27/16 at 06:00 Zolpidem Tartrate (Ambien) 5 mg HS PRN PO INSOMNIA; Start 09/27/16 at 01:00 Acetaminophen (Tylenol Tab) 650 mg Q6H PRN PO PAIN AND OR ELEVATED TEMP; Start 09/27/16 at 01:00 Ondansetron HCl (Zofran Inj) 4 mg Q6H PRN IV NAUSEA AND/OR VOMITING Last administered on 10/01/16 15:02; Admin Dose 4 MG; Start 09/27/16 at 01:00 IV Flush (NS 10 ml) 3 ml Q8 IV Last administered on 10/01/16 06:32; Admin Dose 3 ML; Start 09/27/16 at 06:00 Diagnostic Test (Pha) (Accu-Chek) 1 ea 02 XX ; Start 09/28/16 at 02:00 Miscellaneous Information 1 ea NOTE XX ; Start 09/27/16 at 07:30 Glucose (Glutose) 15 gm Q15M PRN PO DECREASED GLUCOSE; Start 09/27/16 at 07:30 Glucose (Glutose) 22.5 gm Q15M PRN PO DECREASED GLUCOSE; Start 09/27/16 at 07: 30 Dextrose (D50w Syringe) 25 ml Q15M PRN IV DECREASED GLUCOSE; Start 09/27/16 at 07:30 Dextrose (D50w Syringe) 50 ml Q15M PRN IV DECREASED GLUCOSE; Start 09/27/16 at 07:30 Glucagon (Glucagen) 1 mg Q15M PRN IM DECREASED GLUCOSE; Start 09/27/16 at 07:30 Glucose (Glutose) 15 gm Q15M PRN BUCCAL DECREASED GLUCOSE; Start 09/27/16 at 07 :30 Acetaminophen/ Hydrocodone Bitart ([place] (10/325)) 1.5 tab Q8H PO Last administered on 10/01/16 08:41; Admin Dose 1.5 TAB; Start 09/27/16 at 15:30 Clonidine (Catapres) 0.1 mg Q6H PRN PO SBP>170; Start 09/27/16 at 12:00 Morphine Sulfate (morphine) 2 mg Q2H PRN IV PAIN Last administered on 13:05; Admin Dose 2 MG; Start 09/27/16 at 22:00 Mupirocin (Bactroban) 1 applic BID TOP Last administered on 10/01/16 08:41; Admin Dose 1 APPLIC; Start 09/28/16 at 21:00 Atorvastatin Calcium (Lipitor) 40 mg DAILY@21 PO Last administered on 21:12; Admin Dose 40 MG; Start 09/29/16 at 21:00 Levofloxacin (Levaquin) 250 mg Q48H PO Last administered on 09/30/16 17:40; Admin Dose 250 MG; Start 09/30/16 at 15:00 Miscellaneous Information (*Rx Drug Level Order Reminder*) RANDOM VANCOMYCIN LEVEL 7... ONCE ONCE XX ; Start 10/02/16 at 05:00; Stop 10/02/16 at 05:01 TENISHA DENNIS NP Oct 01, 2016 15:04
--- NOTE | 2016-10-01 18:12 | PN ---
Date/Time of Note Date/Time of Note DATE: 10/01/16 TIME: 18:12 Assessment/Plan Lines/Catheters IV Catheter Type (from Nrsg): Saline Lock Tolbert in Place (from Nrsg): No Assessment/Plan Chief Complaint/Hosp Course Status post angiogram and iliac artery angioplasty and stent placement Patient with significant bilateral lower extremity infrapopliteal disease Patient with significant superficial femoral artery disease bilaterally Gangrene of the feet Plan for intervention bilateral lower extremity next week Discussed with the referring physicians His cussed with the daughter Problems: Subjective 24 Hr Interval Summary Constitutional: improved Pain Control: mild Exam/Review of Systems Vital Signs Vitals Vital Signs Date Time Temp Pulse Resp B/P Pulse Ox O2 Delivery O2 Flow Rate FiO2 10/01/16 14:20 97.5 75 20 109/56 95 Intake and Output 09/30/16 09/30/16 10/01/16 15:00 23:00 07:00 Intake Total 320 ml Balance 320 ml Exam ENMT: mucosa pink and moist, nl external ears & nose, nl lips & teeth, nl nasal mucosa & septum Neck: non-tender, supple Respiratory: clear to auscultation, normal air movement Cardiovascular: nl pulses, regular rate and rhythm Gastrointestinal: nl liver, spleen, non-tender, soft Results Result Diagram: 09/30/16 0535 09/30/16 0525 BALDOMERO PALOMO MD Oct 01, 2016 18:12
[2016-10-01 20:14] VITALS: BP 109/53; RESP 18
[2016-10-01] MEDS: ATORVASTATIN 40 MG TAB PO SCH (21:29)
[2016-10-02] VITALS (12 sets, daily range): BP systolic 103–116; BP diastolic 51–64; PULSE 73–78; RESP 16–18
[2016-10-02] MEDS: ACCU-CHEK XX SCH (02:12)
[2016-10-02] MEDS: morphine 2 MG INJ IV PRN ×3 (02:56→22:58)
[2016-10-02] MEDS: PANTOPRAZOLE (EC) 40 MG TAB PO SCH (06:07)
[2016-10-02] MEDS: LEVOTHYROXINE 88 MCG TAB PO SCH (06:36)
[2016-10-02] MEDS: HYDROCODONE/APAP (10/325) TAB PO SCH ×3 (06:36→23:30)
[2016-10-02] MEDS: INSULIN ASPART [NOVOLOG] 3 ML PEN SC SCH ×5 (08:15→21:00)
[2016-10-02] MEDS: MULTIVIT/CA CARB/B CMPLX/FA TAB PO SCH (09:00)
[2016-10-02] MEDS: METOPROLOL (XL) 25 MG TAB PO SCH (09:00)
[2016-10-02] MEDS: FERROUS SULFATE (EC) 325 MG TAB PO SCH (09:00)
--- NOTE | 2016-10-02 10:11 | PN ---
Date/Time of Note Date/Time of Note DATE: 10/02/16 TIME: 10:04 Assessment/Plan VTE Prophylaxis VTE Prophylaxis Intervention: other Lines/Catheters IV Catheter Type (from [facility], [place]): Saline Lock Urinary Cath still in place: No Assessment/Plan Chief Complaint/Hosp Course 1. Right lower extremity gangrene. Patient seen by by CT surgeon Dr. mcginnis status post angiogram with stenting of the iliac artery Expecting another angiogram next 1-2 days Continue antibiotic therapy Continue pain control 2. End-stage renal disease. Plan for hemodialysis today 3. Coronary artery disease. History of cardiomyopathy. The patient is currently stable. 4. Anemia. Monitor hemoglobin and hematocrit. Continuing Epogen 5. Diabetes. Continue current insulin regimen. 6. Hypertension. Continue current blood pressure regimen. 7. Hypothyroidism. The patient takes Synthroid. 8. GI and DVT prophylaxis. 9. Status post right hip fracture. 10. Mineral bone disorder Monitor calcium phosphorus levels Problems: Subjective 24 Hr Interval Summary Free Text/Dictation Patient seen and examined Had hemodialysis today tolerated well Pain is present but controlled on [place] Awaiting angiogram in the next 1-2 days Exam/Review of Systems Vital Signs Vitals Vital Signs Date Time Temp Pulse Resp B/P Pulse Ox O2 Delivery O2 Flow Rate FiO2 10/02/16 07:41 97.9 65 18 111/53 96 Intake and Output 10/01/16 10/01/16 10/02/16 15:00 23:00 07:00 Intake Total 200 ml 440 ml Output Total 550 ml Balance 200 ml -110 ml Exam HEENT: Head is normocephalic. Pupils are reactive to light. NECK: Supple. HEART: Regular rate. CHEST: Shows PermCath. ABDOMEN: Soft. Nontender on palpation. No rebound or guarding. EXTREMITIES: Positive for dressing over bilateral lower extremities. There is noted erythema in the right lower extremity. Noted wound. NEUROLOGIC: No focal deficits. Results Result Diagram: 09/30/16 0535 09/30/16 0525 Results 24 hrs Laboratory Tests Test 10/01/16 12:09 10/01/16 17:19 10/01/16 21:31 10/02/16 02:10 Bedside Glucose 104 214 217 105 Test 10/02/16 05:38 10/02/16 08:09 Random Vancomycin Level 9.9 Bedside Glucose 127 Medications Medications Current Medications Ferrous Sulfate (Ferrous Sulfate (Ec)) 325 mg DAILY PO Last administered on 08:39; Admin Dose 325 MG; Start 09/27/16 at 09:00 Hydralazine HCl (Apresoline) 10 mg BID PO Last administered on 10/01/16 21:30 ; Admin Dose 10 MG; Start 09/27/16 at 09:00 Metoprolol Succinate (Toprol Xl) 25 mg DAILY PO Last administered on 10/01/16 08:39; Admin Dose 25 MG; Start 09/27/16 at 09:00 Multivit/Ca Carb/ B Cmplx/FA/Prenat (Billie-Roge) 1 tab DAILY PO Last administered on 10/01/16 08:40; Admin Dose 1 TAB; Start 09/27/16 at 09:00 Polyethylene Glycol (Miralax) 17 gm DAILY PO Last administered on 10/01/16 08: 39; Admin Dose 17 GM; Start 09/27/16 at 09:00 Pantoprazole (Protonix Tab) 40 mg DAILY@06 PO Last administered on 10/02/16 06 :07; Admin Dose 40 MG; Start 09/27/16 at 06:00 Zolpidem Tartrate (Ambien) 5 mg HS PRN PO INSOMNIA; Start 09/27/16 at 01:00 Acetaminophen (Tylenol Tab) 650 mg Q6H PRN PO PAIN AND OR ELEVATED TEMP; Start 09/27/16 at 01:00 Ondansetron HCl (Zofran Inj) 4 mg Q6H PRN IV NAUSEA AND/OR VOMITING Last administered on 10/01/16 15:02; Admin Dose 4 MG; Start 09/27/16 at 01:00 IV Flush (NS 10 ml) 3 ml Q8 IV Last administered on 10/01/16 14:00; Admin Dose 3 ML; Start 09/27/16 at 06:00 Diagnostic Test (Pha) (Accu-Chek) 1 ea 02 XX Last administered on 10/02/16 02: 12; Admin Dose 1 EA; Start 09/28/16 at 02:00 Miscellaneous Information 1 ea NOTE XX ; Start 09/27/16 at 07:30 Glucose (Glutose) 15 gm Q15M PRN PO DECREASED GLUCOSE; Start 09/27/16 at 07:30 Glucose (Glutose) 22.5 gm Q15M PRN PO DECREASED GLUCOSE; Start 09/27/16 at 07: 30 Dextrose (D50w Syringe) 25 ml Q15M PRN IV DECREASED GLUCOSE; Start 09/27/16 at 07:30 Dextrose (D50w Syringe) 50 ml Q15M PRN IV DECREASED GLUCOSE; Start 09/27/16 at 07:30 Glucagon (Glucagen) 1 mg Q15M PRN IM DECREASED GLUCOSE; Start 09/27/16 at 07:30 Glucose (Glutose) 15 gm Q15M PRN BUCCAL DECREASED GLUCOSE; Start 09/27/16 at 07 :30 Acetaminophen/ Hydrocodone Bitart ([place] (10)) 1.5 tab Q8H PO Last administered on 10/02/16 06:36; Admin Dose 1.5 TAB; Start 09/27/16 at 15:30 Clonidine (Catapres) 0.1 mg Q6H PRN PO SBP>170; Start 09/27/16 at 12:00 Morphine Sulfate (morphine) 2 mg Q2H PRN IV PAIN Last administered on 02:56; Admin Dose 2 MG; Start 09/27/16 at 22:00 Mupirocin (Bactroban) 1 applic BID TOP Last administered on 10/01/16 21:28; Admin Dose 1 APPLIC; Start 09/28/16 at 21:00 Atorvastatin Calcium (Lipitor) 40 mg DAILY@21 PO Last administered on 21:29; Admin Dose 40 MG; Start 09/29/16 at 21:00 Levofloxacin (Levaquin) 250 mg Q48H PO Last administered on 09/30/16 17:40; Admin Dose 250 MG; Start 09/30/16 at 15:00 BRANDI ERICKSON DO Oct 02, 2016 10:11
--- NOTE | 2016-10-02 10:59 | CONS ---
Date/Time of Note Date/Time of Note DATE: 10/02/16 TIME: 10:56 Assessment/Plan Assessment/Plan Chief Complaint/Hosp Course IMP: 1.Cardiomyopathy with low EF 2.HTN 3.HL 4.cad 5. Pad s/p peripheral bypass 6. ESRD on HD 7. Non-healing LE wound s/p R ext illiac sttenting 8. PPM 9. Anemia 10. Hyponatremia 11.Hypothyroid Recc: -Tele -serial ecg's -Continue BB/hydralazine -Continue statin -HD for volume removal -Continue abx's -Local wound care -Pain control -For additional LE endovascular repair this week Problems: Consultation Date/Type/Reason Admit Date/Time Sep 26, 2016 at 16:53 Initial Consult Date 09/27/2016 Type of Consultation: cardiology Reason for Consultation Cardiomyopathy Referring Provider: BRANDI ERICKSON DO Exam/Review of Systems Vital Signs Vitals Vital Signs Date Time Temp Pulse Resp B/P Pulse Ox O2 Delivery O2 Flow Rate FiO2 10/02/16 08:00 75 19 10/02/16 07:41 97.9 111/53 96 Intake and Output 10/01/16 10/01/16 10/02/16 15:00 23:00 07:00 Intake Total 200 ml 440 ml Output Total 550 ml Balance 200 ml -110 ml Exam Review of Systems: CONSTITUTIONAL: No fevers, chills. PULMONARY: No sob CARDIOVASCULAR: No chest pain/palpitations GASTROINTESTINAL: No nausea/vomiting. GENITOURINARY: No hematuria/dysuria. MUSCULOSKELETAL: pain in leg PSYCHIATRIC: The patient denies depression. NEUROLOGIC: No weakness Constitutional: alert Head: normocephalic ENMT: mucosa pink and moist Neck: jvd (9 cm water), supple Respiratory: diminished breath sounds (at bases/B) Cardiovascular: regular rate and rhythm Gastrointestinal: non-tender, soft Musculoskeletal: muscle weakness (generalized) Extremities: other (RLE covered by dressing with garenouos chsnges) Neurological: other (no focval deficits) Results Result Diagram: 09/30/16 0535 09/30/16 0525 Results 24 hrs Laboratory Tests Test 10/01/16 12:09 10/01/16 17:19 10/01/16 21:31 10/02/16 02:10 Bedside Glucose 104 214 217 105 Test 10/02/16 05:38 10/02/16 08:09 Random Vancomycin Level 9.9 Bedside Glucose 127 Medications Medications Current Medications Ferrous Sulfate (Ferrous Sulfate (Ec)) 325 mg DAILY PO Last administered on 08:39; Admin Dose 325 MG; Start 09/27/16 at 09:00 Hydralazine HCl (Apresoline) 10 mg BID PO Last administered on 10/01/16 21:30 ; Admin Dose 10 MG; Start 09/27/16 at 09:00 Metoprolol Succinate (Toprol Xl) 25 mg DAILY PO Last administered on 10/01/16 08:39; Admin Dose 25 MG; Start 09/27/16 at 09:00 Multivit/Ca Carb/ B Cmplx/FA/Prenat (Billie-Roge) 1 tab DAILY PO Last administered on 10/01/16 08:40; Admin Dose 1 TAB; Start 09/27/16 at 09:00 Polyethylene Glycol (Miralax) 17 gm DAILY PO Last administered on 10/01/16 08: 39; Admin Dose 17 GM; Start 09/27/16 at 09:00 Pantoprazole (Protonix Tab) 40 mg DAILY@06 PO Last administered on 10/02/16 06 :07; Admin Dose 40 MG; Start 09/27/16 at 06:00 Zolpidem Tartrate (Ambien) 5 mg HS PRN PO INSOMNIA; Start 09/27/16 at 01:00 Acetaminophen (Tylenol Tab) 650 mg Q6H PRN PO PAIN AND OR ELEVATED TEMP; Start 09/27/16 at 01:00 Ondansetron HCl (Zofran Inj) 4 mg Q6H PRN IV NAUSEA AND/OR VOMITING Last administered on 10/01/16 15:02; Admin Dose 4 MG; Start 09/27/16 at 01:00 IV Flush (NS 10 ml) 3 ml Q8 IV Last administered on 10/01/16 14:00; Admin Dose 3 ML; Start 09/27/16 at 06:00 Diagnostic Test (Pha) (Accu-Chek) 1 ea 02 XX Last administered on 10/02/16 02: 12; Admin Dose 1 EA; Start 09/28/16 at 02:00 Miscellaneous Information 1 ea NOTE XX ; Start 09/27/16 at 07:30 Glucose (Glutose) 15 gm Q15M PRN PO DECREASED GLUCOSE; Start 09/27/16 at 07:30 Glucose (Glutose) 22.5 gm Q15M PRN PO DECREASED GLUCOSE; Start 09/27/16 at 07: 30 Dextrose (D50w Syringe) 25 ml Q15M PRN IV DECREASED GLUCOSE; Start 09/27/16 at 07:30 Dextrose (D50w Syringe) 50 ml Q15M PRN IV DECREASED GLUCOSE; Start 09/27/16 at 07:30 Glucagon (Glucagen) 1 mg Q15M PRN IM DECREASED GLUCOSE; Start 09/27/16 at 07:30 Glucose (Glutose) 15 gm Q15M PRN BUCCAL DECREASED GLUCOSE; Start 09/27/16 at 07 :30 Acetaminophen/ Hydrocodone Bitart ([place] (10/325)) 1.5 tab Q8H PO Last administered on 10/02/16 06:36; Admin Dose 1.5 TAB; Start 09/27/16 at 15:30 Clonidine (Catapres) 0.1 mg Q6H PRN PO SBP>170; Start 09/27/16 at 12:00 Morphine Sulfate (morphine) 2 mg Q2H PRN IV PAIN Last administered on 02:56; Admin Dose 2 MG; Start 09/27/16 at 22:00 Mupirocin (Bactroban) 1 applic BID TOP Last administered on 10/01/16 21:28; Admin Dose 1 APPLIC; Start 09/28/16 at 21:00 Atorvastatin Calcium (Lipitor) 40 mg DAILY@21 PO Last administered on 21:29; Admin Dose 40 MG; Start 09/29/16 at 21:00 Levofloxacin (Levaquin) 250 mg Q48H PO Last administered on 09/30/16 17:40; Admin Dose 250 MG; Start 09/30/16 at 15:00 YI RODRIGUEZ Oct 02, 2016 10:59
[2016-10-02] MEDS: SEVELAMER 800 MG TAB PO SCH ×3 (12:15→17:40)
[2016-10-02] MEDS: MUPIROCIN 2% 22 GM OINT TOP SCH ×2 (12:26→21:55)
[2016-10-02] MEDS: POLYETHYLENE GLYCOL 17 GM PACKET PO SCH (12:26)
--- NOTE | 2016-10-02 12:36 | PN ---
Date/Time of Note Date/Time of Note DATE: 10/02/16 TIME: 12:35 Assessment/Plan VTE Prophylaxis VTE Prophylaxis Intervention: other Lines/Catheters IV C[facility]ter Type (from [facility]): Urinary Cath still in place: No Assessment/Plan Chief Complaint/Hosp Course Status post angiogram and iliac artery angioplasty and stent placement Patient with significant bilateral lower extremity infrapopliteal disease Patient with significant superficial femoral artery disease bilaterally Gangrene of the feet SP RCIA stent Plan for intervention bilateral lower extremity tomorrow Discussed with the referring physicians His cussed with the daughter Problems: Subjective 24 Hr Interval Summary Gastrointestinal: no complaints Genitourinary: no complaints Musculoskeletal: no complaints Skin: no complaints Neurologic: no complaints Exam/Review of Systems Vital Signs Vitals Vital Signs Date Time Temp Pulse Resp B/P Pulse Ox O2 Delivery O2 Flow Rate FiO2 10/02/16 08:00 75 19 10/02/16 07:41 97.9 111/53 96 Intake and Output 10/01/16 10/01/16 10/02/16 15:00 23:00 07:00 Intake Total 200 ml 440 ml Output Total 550 ml Balance 200 ml -110 ml Exam ENMT: nl external ears & nose, nl lips & teeth, nl nasal mucosa & septum Neck: non-tender, supple Respiratory: clear to auscultation, normal air movement Cardiovascular: nl pulses, regular rate and rhythm Results Result Diagram: 09/30/16 0535 09/30/16 0525 Results 24 hrs Laboratory Tests Test 10/01/16 17:19 10/01/16 21:31 10/02/16 02:10 10/02/16 05:38 Bedside Glucose 214 217 105 Random Vancomycin Level 9.9 Test 10/02/16 08:09 10/02/16 12:17 Bedside Glucose 127 143 Medications Medications Current Medications Ferrous Sulfate (Ferrous Sulfate (Ec)) 325 mg DAILY PO Last administered on 08:39; Admin Dose 325 MG; Start 09/27/16 at 09:00 Hydralazine HCl (Apresoline) 10 mg BID PO Last administered on 10/01/16 21:30 ; Admin Dose 10 MG; Start 09/27/16 at 09:00 Metoprolol Succinate (Toprol Xl) 25 mg DAILY PO Last administered on 10/01/16 08:39; Admin Dose 25 MG; Start 09/27/16 at 09:00 Multivit/Ca Carb/ B Cmplx/FA/Prenat (Billie-Roge) 1 tab DAILY PO Last administered on 10/01/16 08:40; Admin Dose 1 TAB; Start 09/27/16 at 09:00 Polyethylene Glycol (Miralax) 17 gm DAILY PO Last administered on 10/02/16 12: 26; Admin Dose 17 GM; Start 09/27/16 at 09:00 Pantoprazole (Protonix Tab) 40 mg DAILY@06 PO Last administered on 10/02/16 06 :07; Admin Dose 40 MG; Start 09/27/16 at 06:00 Zolpidem Tartrate (Ambien) 5 mg HS PRN PO INSOMNIA; Start 09/27/16 at 01:00 Acetaminophen (Tylenol Tab) 650 mg Q6H PRN PO PAIN AND OR ELEVATED TEMP; Start 09/27/16 at 01:00 Ondansetron HCl (Zofran Inj) 4 mg Q6H PRN IV NAUSEA AND/OR VOMITING Last administered on 10/01/16 15:02; Admin Dose 4 MG; Start 09/27/16 at 01:00 IV Flush (NS 10 ml) 3 ml Q8 IV Last administered on 10/01/16 14:00; Admin Dose 3 ML; Start 09/27/16 at 06:00 Diagnostic Test (Pha) (Accu-Chek) 1 ea 02 XX Last administered on 10/02/16 02: 12; Admin Dose 1 EA; Start 09/28/16 at 02:00 Miscellaneous Information 1 ea NOTE XX ; Start 09/27/16 at 07:30 Glucose (Glutose) 15 gm Q15M PRN PO DECREASED GLUCOSE; Start 09/27/16 at 07:30 Glucose (Glutose) 22.5 gm Q15M PRN PO DECREASED GLUCOSE; Start 09/27/16 at 07: 30 Dextrose (D50w Syringe) 25 ml Q15M PRN IV DECREASED GLUCOSE; Start 09/27/16 at 07:30 Dextrose (D50w Syringe) 50 ml Q15M PRN IV DECREASED GLUCOSE; Start 09/27/16 at 07:30 Glucagon (Glucagen) 1 mg Q15M PRN IM DECREASED GLUCOSE; Start 09/27/16 at 07:30 Glucose (Glutose) 15 gm Q15M PRN BUCCAL DECREASED GLUCOSE; Start 09/27/16 at 07 :30 Acetaminophen/ Hydrocodone Bitart ([place] (10/)) 1.5 tab Q8H PO Last administered on 10/02/16 06:36; Admin Dose 1.5 TAB; Start 09/27/16 at 15:30 Clonidine (Catapres) 0.1 mg Q6H PRN PO SBP>170; Start 09/27/16 at 12:00 Morphine Sulfate (morphine) 2 mg Q2H PRN IV PAIN Last administered on 02:56; Admin Dose 2 MG; Start 09/27/16 at 22:00 Mupirocin (Bactroban) 1 applic BID TOP Last administered on 10/02/16 12:26; Admin Dose 1 APPLIC; Start 09/28/16 at 21:00 Atorvastatin Calcium (Lipitor) 40 mg DAILY@21 PO Last administered on 21:29; Admin Dose 40 MG; Start 09/29/16 at 21:00 Levofloxacin (Levaquin) 250 mg Q48H PO Last administered on 09/30/16 17:40; Admin Dose 250 MG; Start 09/30/16 at 15:00 BALDOMERO PALOMO MD Oct 02, 2016 12:36
[2016-10-02] MEDS: EPOETIN 4000 UNITS/1 ML INJ (ESRD) SC SCH (12:40)
--- NOTE | 2016-10-02 13:13 | CONS ---
Date/Time of Note Date/Time of Note DATE: 10/02/16 TIME: 13:12 Assessment/Plan Assessment/Plan Chief Complaint/Hosp Course Alert, looks comfortable no fevers, family at bedside Antibiotics: vancomycin Levaquin Physical examination: Well-developed fragile elderly woman who is in no distress. Head atraumatic normocephalic sclera nonicteric bugle mucosa dry neck is supple chest rise symmetrical breath sounds diminished bases heart S1- S2 abdomen soft bowel tones present extremities right foot dressing intact Assessment: #1.Bacteremia==> Staph #1 right lower extremity gangrene #2 severe peripheral arterial disease, s/p angiogram and iliac artery angioplasty and stent placement 09/29/16 #3 end-stage renal disease, hemodialysis dependent #4 diabetes #5 coronary artery disease with a history of cardiomyopathy #6. Left upper extremity AV fistula Plan: Remains stable, continue antibiotic, follow podiatry and vascular recommendations==> Patient with significant bilateral lower extremity infrapopliteal disease Patient with significant superficial femoral artery disease bilaterally, pending revascularization procedure tomorrow DW pt/family/RN Problems: Consultation Date/Type/Reason Admit Date/Time Sep 26, 2016 at 16:53 Type of Consultation: id Referring Provider: BRANDI ERICKSON DO Exam/Review of Systems Vital Signs Vitals Vital Signs Date Time Temp Pulse Resp B/P Pulse Ox O2 Delivery O2 Flow Rate FiO2 10/02/16 08:00 75 19 10/02/16 07:41 97.9 111/53 96 Intake and Output 10/01/16 10/01/16 10/02/16 15:00 23:00 07:00 Intake Total 200 ml 440 ml Output Total 550 ml Balance 200 ml -110 ml Results Result Diagram: 09/30/16 0535 09/30/16 0525 Results 24 hrs Laboratory Tests Test 10/01/16 17:19 10/01/16 21:31 10/02/16 02:10 10/02/16 05:38 Bedside Glucose 214 217 105 Random Vancomycin Level 9.9 Test 10/02/16 08:09 10/02/16 12:17 Bedside Glucose 127 143 Medications Medications Current Medications Ferrous Sulfate (Ferrous Sulfate (Ec)) 325 mg DAILY PO Last administered on t 08:39; Admin Dose 325 MG; Start 09/27/16 at 09:00 Hydralazine HCl (Apresoline) 10 mg BID PO Last administered on 10/01/16 21:30 ; Admin Dose 10 MG; Start 09/27/16 at 09:00 Metoprolol Succinate (Toprol Xl) 25 mg DAILY PO Last administered on 10/01/16 08:39; Admin Dose 25 MG; Start 09/27/16 at 09:00 Multivit/Ca Carb/ B Cmplx/FA/Prenat (Billie-Roge) 1 tab DAILY PO Last administered on 10/01/16 08:40; Admin Dose 1 TAB; Start 09/27/16 at 09:00 Polyethylene Glycol (Miralax) 17 gm DAILY PO Last administered on 10/02/16 12: 26; Admin Dose 17 GM; Start 09/27/16 at 09:00 Pantoprazole (Protonix Tab) 40 mg DAILY@06 PO Last administered on 10/02/16 06 :07; Admin Dose 40 MG; Start 09/27/16 at 06:00 Zolpidem Tartrate (Ambien) 5 mg HS PRN PO INSOMNIA; Start 09/27/16 at 01:00 Acetaminophen (Tylenol Tab) 650 mg Q6H PRN PO PAIN AND OR ELEVATED TEMP; Start 09/27/16 at 01:00 Ondansetron HCl (Zofran Inj) 4 mg Q6H PRN IV NAUSEA AND/OR VOMITING Last administered on 10/01/16 15:02; Admin Dose 4 MG; Start 09/27/16 at 01:00 IV Flush (NS 10 ml) 3 ml Q8 IV Last administered on 10/01/16 14:00; Admin Dose 3 ML; Start 09/27/16 at 06:00 Diagnostic Test (Pha) (Accu-Chek) 1 ea 02 XX Last administered on 10/02/16 02: 12; Admin Dose 1 EA; Start 09/28/16 at 02:00 Miscellaneous Information 1 ea NOTE XX ; Start 09/27/16 at 07:30 Glucose (Glutose) 15 gm Q15M PRN PO DECREASED GLUCOSE; Start 09/27/16 at 07:30 Glucose (Glutose) 22.5 gm Q15M PRN PO DECREASED GLUCOSE; Start 09/27/16 at 07: 30 Dextrose (D50w Syringe) 25 ml Q15M PRN IV DECREASED GLUCOSE; Start 09/27/16 at 07:30 Dextrose (D50w Syringe) 50 ml Q15M PRN IV DECREASED GLUCOSE; Start 09/27/16 at 07:30 Glucagon (Glucagen) 1 mg Q15M PRN IM DECREASED GLUCOSE; Start 09/27/16 at 07:30 Glucose (Glutose) 15 gm Q15M PRN BUCCAL DECREASED GLUCOSE; Start 09/27/16 at 07 :30 Acetaminophen/ Hydrocodone Bitart ([place] (10/325)) 1.5 tab Q8H PO Last administered on 10/02/16 06:36; Admin Dose 1.5 TAB; Start 09/27/16 at 15:30 Clonidine (Catapres) 0.1 mg Q6H PRN PO SBP>170; Start 09/27/16 at 12:00 Morphine Sulfate (morphine) 2 mg Q2H PRN IV PAIN Last administered on 12:40; Admin Dose 2 MG; Start 09/27/16 at 22:00 Mupirocin (Bactroban) 1 applic BID TOP Last administered on 10/02/16 12:26; Admin Dose 1 APPLIC; Start 09/28/16 at 21:00 Atorvastatin Calcium (Lipitor) 40 mg DAILY@21 PO Last administered on 21:29; Admin Dose 40 MG; Start 09/29/16 at 21:00 Levofloxacin 250 mg 250 mg Q48H PO Last administered on 09/30/16 17:40; Admin Dose 250 MG; Start 09/30/16 at 15:00 Vancomycin HCl (Vancocin) 250 ml @ 125 mls/hr ONCE IVPB ; Start 10/02/16 at 14: 00; Stop 10/02/16 at 16:00 TENISHA DENNIS NP Oct 02, 2016 13:13
[2016-10-02] MEDS ORDERED: VANCOMYCIN 1 GM in NS 250 ML IVPB SCH (14:00)
[2016-10-02] MEDS: LEVOFLOXACIN 250 MG TAB PO SCH (17:40)
[2016-10-02] MEDS: ATORVASTATIN 40 MG TAB PO SCH (21:55)
[2016-10-03] VITALS (13 sets, daily range): BP systolic 107–127; BP diastolic 48–61; PULSE 80–95; RESP 8–23
[2016-10-03] MEDS: ACCU-CHEK XX SCH (02:00)
[2016-10-03 05:34] LABS: ABNORMAL IP MESSAGE 1; BASOPHILS % 0.4 % (0.0-2.0); EOSINOPHILS # 0.1 10^3/ul (0.0-0.5); EOSINOPHILS % 0.7 % (0.0-7.0); HEMATOCRIT 32.7 % (37.0-47.0); HEMOGLOBIN 10.5 g/dl (12.0-16.0); LYMPHOCYTES # 1.3 10^3/ul (0.8-2.9); LYMPHOCYTES % 18.1 % (15.0-51.0); MEAN CORPUSCULAR HEMOGLOBIN 28.4 pg (29.0-33.0); MEAN CORPUSCULAR HGB CONC 32.1 g/dl (32.0-37.0); MEAN CORPUSCULAR VOLUME 88.4 fl (82.0-101.0); MEAN PLATELET VOLUME 9.7 fl (7.4-10.4); MONOCYTE # 0.5 10^3/ul (0.3-0.9); NEUTROPHIL # 5.3 10^3/ul (1.6-7.5); NEUTROPHILS % 73.1 % (39.0-77.0); PLATELET COUNT 93 10^3/UL (140-415); RED CELL DISTRIBUTION WIDTH 18.2 % (11.5-14.5); WHITE BLOOD COUNT 7.3 10^3/ul (4.8-10.8)
[2016-10-03] MEDS: PANTOPRAZOLE (EC) 40 MG TAB PO SCH (05:35)
[2016-10-03] MEDS: LEVOTHYROXINE 88 MCG TAB PO SCH (05:35)
[2016-10-03 05:37] LABS: POSITIVE DIFF @See below
[2016-10-03 06:50] LABS: CALCIUM 7.9 mg/dl (8.4-10.2); CREATININE 3.02 mg/dl (0.44-1.00); MAGNESIUM 1.9 mg/dl (1.7-2.5); POTASSIUM 4.4 mmol/L (3.5-5.1)
[2016-10-03] MEDS: HYDROCODONE/APAP (10/325) TAB PO SCH ×3 (07:30→15:30)
[2016-10-03] MEDS: SEVELAMER 800 MG TAB PO SCH ×3 (07:38→17:35)
[2016-10-03] MEDS: MULTIVIT/CA CARB/B CMPLX/FA TAB PO SCH (07:39)
[2016-10-03] MEDS: POLYETHYLENE GLYCOL 17 GM PACKET PO SCH (07:39)
[2016-10-03] MEDS: FERROUS SULFATE (EC) 325 MG TAB PO SCH (07:39)
[2016-10-03] MEDS: METOPROLOL (XL) 25 MG TAB PO SCH (07:40)
[2016-10-03] MEDS: INSULIN ASPART [NOVOLOG] 3 ML PEN SC SCH ×4 (08:15→22:00)
[2016-10-03] MEDS: MUPIROCIN 2% 22 GM OINT TOP SCH ×2 (08:16→21:56)
[2016-10-03] MEDS: morphine 2 MG INJ IV PRN ×2 (12:11→19:55)
--- NOTE | 2016-10-03 12:13 | CONS ---
Date/Time of Note Date/Time of Note DATE: 10/03/16 TIME: 12:09 Assessment/Plan Assessment/Plan Chief Complaint/Hosp Course Assessment/Plan Chief Complaint/Hosp Course Alert. Awake. No fevers. Complains of Right Foot pain. Antibiotics: vancomycin Levaquin Physical examination: Well-developed fragile elderly woman who is in no distress. Head atraumatic normocephalic sclera nonicteric bugle mucosa dry neck is supple chest rise symmetrical breath sounds diminished bases heart S1- S2 abdomen soft bowel tones present extremities right foot dressing intact Assessment: #1.Bacteremia==> Staph #1 right lower extremity gangrene #2 severe peripheral arterial disease, s/p angiogram and iliac artery angioplasty and stent placement 09/29/16 #3 end-stage renal disease, hemodialysis dependent #4 diabetes #5 coronary artery disease with a history of cardiomyopathy #6. Left upper extremity AV fistula Plan: Remains stable. Continue antibiotics. Follow podiatry and vascular recommendations. Pending revascularization procedure today. Pain Management. DW patient. Problems: Consultation Date/Type/Reason Admit Date/Time Sep 26, 2016 at 16:53 Initial Consult Date Type of Consultation: id Referring Provider: BRANDI ERICKSON DO Exam/Review of Systems Vital Signs Vitals Vital Signs Date Time Temp Pulse Resp B/P Pulse Ox O2 Delivery O2 Flow Rate FiO2 10/03/16 07:36 98.1 79 20 118/58 96 Intake and Output 10/02/16 10/02/16 10/03/16 15:00 23:00 07:00 Intake Total 500 ml 1090 ml 500 ml Output Total 3000 ml 0 ml Balance -2500 ml 1090 ml 500 ml Results Result Diagram: 10/03/16 0504 10/03/16 0504 Results 24 hrs Laboratory Tests Test 10/02/16 12:17 10/02/16 17:38 10/02/16 21:05 10/03/16 05:04 Bedside Glucose 143 180 191 White Blood Count 7.3 Red Blood Count 3.70 L Hemoglobin 10.5 L Hematocrit 32.7 L Mean Corpuscular Volume 88.4 Mean Corpuscular Hemoglobin 28.4 L Mean Corpuscular Hemoglobin Concent 32.1 Red Cell Distribution Width 18.2 H Platelet Count 93 L Mean Platelet Volume 9.7 Neutrophils % 73.1 Lymphocytes % 18.1 Monocytes % 7.0 Eosinophils % 0.7 Basophils % 0.4 Nucleated Red Blood Cells % 0.0 Neutrophils # 5.3 Lymphocytes # 1.3 Monocytes # 0.5 Eosinophils # 0.1 Basophils # 0.0 Nucleated Red Blood Cells # 0.0 Sodium Level 131 L Potassium Level 4.4 Chloride Level 93 L Carbon Dioxide Level 23 Anion Gap 19 H Blood Urea Nitrogen 31 H Creatinine 3.02 H Glucose Level 174 Calcium Level 7.9 L Phosphorus Level 5.0 H Magnesium Level 1.9 Test 10/03/16 08:00 10/03/16 11:54 Bedside Glucose 151 144 Medications Medications Current Medications Ferrous Sulfate (Ferrous Sulfate (Ec)) 325 mg DAILY PO Last administered on 08:39; Admin Dose 325 MG; Start 09/27/16 at 09:00 Hydralazine HCl (Apresoline) 10 mg BID PO Last administered on 10/01/16 21:30 ; Admin Dose 10 MG; Start 09/27/16 at 09:00 Metoprolol Succinate (Toprol Xl) 25 mg DAILY PO Last administered on 10/01/16 08:39; Admin Dose 25 MG; Start 09/27/16 at 09:00 Multivit/Ca Carb/ B Cmplx/FA/Prenat (Billie-Roge) 1 tab DAILY PO Last administered on 10/01/16 08:40; Admin Dose 1 TAB; Start 09/27/16 at 09:00 Polyethylene Glycol (Miralax) 17 gm DAILY PO Last administered on 10/02/16 12: 26; Admin Dose 17 GM; Start 09/27/16 at 09:00 Pantoprazole (Protonix Tab) 40 mg DAILY@06 PO Last administered on 10/02/16 06 :07; Admin Dose 40 MG; Start 09/27/16 at 06:00 Zolpidem Tartrate (Ambien) 5 mg HS PRN PO INSOMNIA; Start 09/27/16 at 01:00 Acetaminophen (Tylenol Tab) 650 mg Q6H PRN PO PAIN AND OR ELEVATED TEMP; Start 09/27/16 at 01:00 Ondansetron HCl (Zofran Inj) 4 mg Q6H PRN IV NAUSEA AND/OR VOMITING Last administered on 10/01/16 15:02; Admin Dose 4 MG; Start 09/27/16 at 01:00 IV Flush (NS 10 ml) 3 ml Q8 IV Last administered on 10/03/16 05:35; Admin Dose 3 ML; Start 09/27/16 at 06:00 Diagnostic Test (Pha) (Accu-Chek) 1 ea 02 XX Last administered on 10/02/16 02: 12; Admin Dose 1 EA; Start 09/28/16 at 02:00 Miscellaneous Information 1 ea NOTE XX ; Start 09/27/16 at 07:30 Glucose (Glutose) 15 gm Q15M PRN PO DECREASED GLUCOSE; Start 09/27/16 at 07:30 Glucose (Glutose) 22.5 gm Q15M PRN PO DECREASED GLUCOSE; Start 09/27/16 at 07: 30 Dextrose (D50w Syringe) 25 ml Q15M PRN IV DECREASED GLUCOSE; Start 09/27/16 at 07:30 Dextrose (D50w Syringe) 50 ml Q15M PRN IV DECREASED GLUCOSE; Start 09/27/16 at 07:30 Glucagon (Glucagen) 1 mg Q15M PRN IM DECREASED GLUCOSE; Start 09/27/16 at 07:30 Glucose (Glutose) 15 gm Q15M PRN BUCCAL DECREASED GLUCOSE; Start 09/27/16 at 07 :30 Acetaminophen/ Hydrocodone Bitart ([place] (10/325)) 1.5 tab Q8H PO Last administered on 10/03/16 08:14; Admin Dose 1.5 TAB; Start 09/27/16 at 15:30 Clonidine (Catapres) 0.1 mg Q6H PRN PO SBP>170; Start 09/27/16 at 12:00 Morphine Sulfate (morphine) 2 mg Q2H PRN IV PAIN Last administered on 22:58; Admin Dose 2 MG; Start 09/27/16 at 22:00 Mupirocin (Bactroban) 1 applic BID TOP Last administered on 10/03/16 08:16; Admin Dose 1 APPLIC; Start 09/28/16 at 21:00 Atorvastatin Calcium (Lipitor) 40 mg DAILY@21 PO Last administered on 21:55; Admin Dose 40 MG; Start 09/29/16 at 21:00 Levofloxacin (Levaquin) 250 mg Q48H PO Last administered on 10/02/16 17:40; Admin Dose 250 MG; Start 09/30/16 at 15:00 PARIS PURVIS NP Oct 03, 2016 12:13
--- NOTE | 2016-10-03 13:32 | CONS ---
Date/Time of Note Date/Time of Note DATE: 10/03/16 TIME: 13:28 Assessment/Plan Assessment/Plan Chief Complaint/Hosp Course IMP: 1.Cardiomyopathy with low EF 2.HTN 3.HL 4.cad 5. Pad s/p peripheral bypass 6. ESRD on HD 7. Non-healing LE wound s/p R ext illiac sttenting 8. PPM 9. Anemia 10. Hyponatremia 11.Hypothyroid Recc: -Tele -serial ecg's -Continue BB/hydralazine -Continue statin -HD for volume removal -Continue abx's -Local wound care -Pain control -For additional LE endovascular repair this week Problems: Consultation Date/Type/Reason Admit Date/Time Sep 26, 2016 at 16:53 Initial Consult Date 09/27/2016 Type of Consultation: cardiology Reason for Consultation cardiomyopathy Referring Provider: BRANDI ERICKSON DO Exam/Review of Systems Vital Signs Vitals Vital Signs Date Time Temp Pulse Resp B/P Pulse Ox O2 Delivery O2 Flow Rate FiO2 10/03/16 07:36 98.1 79 20 118/58 96 Intake and Output 10/02/16 10/02/16 10/03/16 15:00 23:00 07:00 Intake Total 500 ml 1090 ml 500 ml Output Total 3000 ml 0 ml Balance -2500 ml 1090 ml 500 ml Exam Review of Systems: CONSTITUTIONAL: No fevers, chills. PULMONARY: No sob CARDIOVASCULAR: No chest pain/palpitations GASTROINTESTINAL: No nausea/vomiting. GENITOURINARY: No hematuria/dysuria. MUSCULOSKELETAL: No myagias/arthalgias. PSYCHIATRIC: The patient denies depression. NEUROLOGIC: No weakness Constitutional: alert Psych: no complaints Head: normocephalic ENMT: mucosa pink and moist Neck: jvd (9 cm water), supple Respiratory: diminished breath sounds Cardiovascular: regular rate and rhythm Gastrointestinal: non-tender, soft Musculoskeletal: muscle tone Extremities: other (necrotic tissue) Neurological: other (No focal deficits) Results Result Diagram: 10/03/16 0504 10/03/16 0504 Results 24 hrs Laboratory Tests Test 10/02/16 17:38 10/02/16 21:05 10/03/16 05:04 10/03/16 08:00 Bedside Glucose 180 191 151 White Blood Count 7.3 Red Blood Count 3.70 L Hemoglobin 10.5 L Hematocrit 32.7 L Mean Corpuscular Volume 88.4 Mean Corpuscular Hemoglobin 28.4 L Mean Corpuscular Hemoglobin Concent 32.1 Red Cell Distribution Width 18.2 H Platelet Count 93 L Mean Platelet Volume 9.7 Neutrophils % 73.1 Lymphocytes % 18.1 Monocytes % 7.0 Eosinophils % 0.7 Basophils % 0.4 Nucleated Red Blood Cells % 0.0 Neutrophils # 5.3 Lymphocytes # 1.3 Monocytes # 0.5 Eosinophils # 0.1 Basophils # 0.0 Nucleated Red Blood Cells # 0.0 Sodium Level 131 L Potassium Level 4.4 Chloride Level 93 L Carbon Dioxide Level 23 Anion Gap 19 H Blood Urea Nitrogen 31 H Creatinine 3.02 H Glucose Level 174 Calcium Level 7.9 L Phosphorus Level 5.0 H Magnesium Level 1.9 Test 10/03/16 11:54 Bedside Glucose 144 Medications Medications Current Medications Ferrous Sulfate (Ferrous Sulfate (Ec)) 325 mg DAILY PO Last administered on 08:39; Admin Dose 325 MG; Start 09/27/16 at 09:00 Hydralazine HCl (Apresoline) 10 mg BID PO Last administered on 10/01/16 21:30 ; Admin Dose 10 MG; Start 09/27/16 at 09:00 Metoprolol Succinate (Toprol Xl) 25 mg DAILY PO Last administered on 10/01/16 08:39; Admin Dose 25 MG; Start 09/27/16 at 09:00 Multivit/Ca Carb/ B Cmplx/FA/Prenat ([place]ie-Roge) 1 tab DAILY PO Last administered on 10/01/16 08:40; Admin Dose 1 TAB; Start 09/27/16 at 09:00 Polyethylene Glycol (Miralax) 17 gm DAILY PO Last administered on 10/02/16 12: 26; Admin Dose 17 GM; Start 09/27/16 at 09:00 Pantoprazole (Protonix Tab) 40 mg DAILY@06 PO Last administered on 10/02/16 06 :07; Admin Dose 40 MG; Start 09/27/16 at 06:00 Zolpidem Tartrate (Ambien) 5 mg HS PRN PO INSOMNIA; Start 09/27/16 at 01:00 Acetaminophen (Tylenol Tab) 650 mg Q6H PRN PO PAIN AND OR ELEVATED TEMP; Start 09/27/16 at 01:00 Ondansetron HCl (Zofran Inj) 4 mg Q6H PRN IV NAUSEA AND/OR VOMITING Last administered on 10/01/16 15:02; Admin Dose 4 MG; Start 09/27/16 at 01:00 IV Flush (NS 10 ml) 3 ml Q8 IV Last administered on 10/03/16 05:35; Admin Dose 3 ML; Start 09/27/16 at 06:00 Diagnostic Test (Pha) (Accu-Chek) 1 ea 02 XX Last administered on 10/02/16 02: 12; Admin Dose 1 EA; Start 09/28/16 at 02:00 Miscellaneous Information 1 ea NOTE XX ; Start 09/27/16 at 07:30 Glucose (Glutose) 15 gm Q15M PRN PO DECREASED GLUCOSE; Start 09/27/16 at 07:30 Glucose (Glutose) 22.5 gm Q15M PRN PO DECREASED GLUCOSE; Start 09/27/16 at 07: 30 Dextrose (D50w Syringe) 25 ml Q15M PRN IV DECREASED GLUCOSE; Start 09/27/16 at 07:30 Dextrose (D50w Syringe) 50 ml Q15M PRN IV DECREASED GLUCOSE; Start 09/27/16 at 07:30 Glucagon (Glucagen) 1 mg Q15M PRN IM DECREASED GLUCOSE; Start 09/27/16 at 07:30 Glucose (Glutose) 15 gm Q15M PRN BUCCAL DECREASED GLUCOSE; Start 09/27/16 at 07 :30 Acetaminophen/ Hydrocodone Bitart ([place] (10/325)) 1.5 tab Q8H PO Last administered on 10/03/16 08:14; Admin Dose 1.5 TAB; Start 09/27/16 at 15:30 Clonidine (Catapres) 0.1 mg Q6H PRN PO SBP>170; Start 09/27/16 at 12:00 Morphine Sulfate (morphine) 2 mg Q2H PRN IV PAIN Last administered on 12:11; Admin Dose 2 MG; Start 09/27/16 at 22:00 Mupirocin (Bactroban) 1 applic BID TOP Last administered on 10/03/16 08:16; Admin Dose 1 APPLIC; Start 09/28/16 at 21:00 Atorvastatin Calcium (Lipitor) 40 mg DAILY@21 PO Last administered on 21:55; Admin Dose 40 MG; Start 09/29/16 at 21:00 Levofloxacin (Levaquin) 250 mg Q48H PO Last administered on 10/02/16 17:40; Admin Dose 250 MG; Start 09/30/16 at 15:00 YI RODRIGUEZ Oct 03, 2016 13:31
[2016-10-03] MEDS: ATORVASTATIN 40 MG TAB PO SCH (21:11)
[2016-10-04] VITALS (57 sets, daily range): BP systolic 92–130; BP diastolic 40–81; PULSE 73–89; RESP 7–27
[2016-10-04] MEDS: HYDROCODONE/APAP (10/325) TAB PO SCH ×4 (00:09→22:58)
[2016-10-04] MEDS: ACCU-CHEK XX SCH (02:00)
[2016-10-04 05:25] LABS: BASOPHILS % 0.3 % (0.0-2.0); EOSINOPHILS # 0.1 10^3/ul (0.0-0.5); EOSINOPHILS % 0.5 % (0.0-7.0); HEMATOCRIT 33.6 % (37.0-47.0); LYMPHOCYTES # 1.5 10^3/ul (0.8-2.9); LYMPHOCYTES % 15.1 % (15.0-51.0); MEAN CORPUSCULAR HEMOGLOBIN 29.4 pg (29.0-33.0); MEAN CORPUSCULAR HGB CONC 32.7 g/dl (32.0-37.0); MEAN CORPUSCULAR VOLUME 89.8 fl (82.0-101.0); MEAN PLATELET VOLUME 9.1 fl (7.4-10.4); MONOCYTE # 0.7 10^3/ul (0.3-0.9); MONOCYTES % 7.4 % (0.0-11.0); NEUTROPHIL # 7.4 10^3/ul (1.6-7.5); PLATELET COUNT 117 10^3/UL (140-415); RED BLOOD COUNT 3.74 10^6/ul (4.20-5.40); RED CELL DISTRIBUTION WIDTH 18.2 % (11.5-14.5); WHITE BLOOD COUNT 9.7 10^3/ul (4.8-10.8)
[2016-10-04 06:04] LABS: CALCIUM 7.8 mg/dl (8.4-10.2); CREATININE 3.5 mg/dl (0.44-1.00); PHOSPHORUS 6.1 mg/dl (2.5-4.9); POTASSIUM 4.5 mmol/L (3.5-5.1)
[2016-10-04] MEDS: LEVOTHYROXINE 88 MCG TAB PO SCH (06:42)
[2016-10-04] MEDS: PANTOPRAZOLE (EC) 40 MG TAB PO SCH (06:42)
[2016-10-04] MEDS: INSULIN ASPART [NOVOLOG] 3 ML PEN SC SCH ×4 (07:35→21:00)
[2016-10-04] MEDS: MULTIVIT/CA CARB/B CMPLX/FA TAB PO SCH (08:01)
[2016-10-04] MEDS: SEVELAMER 800 MG TAB PO SCH ×3 (08:01→17:30)
[2016-10-04] MEDS: MUPIROCIN 2% 22 GM OINT TOP SCH ×2 (08:02→21:18)
[2016-10-04] MEDS: FERROUS SULFATE (EC) 325 MG TAB PO SCH (08:02)
[2016-10-04] MEDS: METOPROLOL (XL) 25 MG TAB PO SCH (08:02)
[2016-10-04] MEDS: POLYETHYLENE GLYCOL 17 GM PACKET PO SCH (08:05)
--- NOTE | 2016-10-04 08:34 | PN ---
Date/Time of Note Date/Time of Note DATE: 10/04/16 TIME: 08:31 Assessment/Plan VTE Prophylaxis VTE Prophylaxis Intervention: other Lines/Catheters IV [facility]from [facility] Saline Lock Urinary Cath still in place: No Assessment/Plan Chief Complaint/Hosp Course Right lower extremity gangrene. status post angiogram with stenting of the iliac artery -Status post angiogram with angioplasty of previous occluded vessel Continue antibiotic therapy Continue pain control Left lower extremity peripheral vascular disease Possible angiogram in next 1-2 days End-stage renal disease. Plan for hemodialysis today Hyponatremia Limit free water intake Dialysis on 140 sodium bath Coronary artery disease. History of cardiomyopathy. The patient is currently stable. Anemia. Monitor hemoglobin and hematocrit. Continuing Epogen 5. Diabetes. Continue current insulin regimen. 6. Hypertension. Continue current blood pressure regimen. 7. Hypothyroidism. The patient takes Synthroid. 8. GI and DVT prophylaxis. 9. Status post right hip fracture. 10. Mineral bone disorder Monitor calcium phosphorus levels Problems: Subjective 24 Hr Interval Summary Free Text/Dictation Patient seen and examined Status post right lower extremity angiogram with stent placement, angioplasty No other acute events noted Pending dialysis today Exam/Review of Systems Vital Signs Vitals Vital Signs Date Time Temp Pulse Resp B/P Pulse Ox O2 Delivery O2 Flow Rate FiO2 10/04/16 08:00 98.1 82 15 112/50 10/04/16 07:00 97 10/03/16 18:00 Room Air Intake and Output 10/03/16 10/03/16 10/04/16 15:00 23:00 07:00 Intake Total 180 ml 80 ml Output Total 0 ml Balance 180 ml 80 ml Exam HEENT: Head is normocephalic, NECK: Supple. HEART: Irregular LUNGS: Show diminished breath sounds at base. ABDOMEN: Soft, nontender to palpation without rebound or guarding. EXTREMITIES: Negative for clubbing, cyanosis. DERMATOLOGIC: No rashes. MUSCULOSKELETAL: No joint effusions, NEUROLOGIC: No change in exam. Results Result Diagram: 10/04/16 0442 10/04/162 Results 24 hrs Laboratory Tests Test 10/03/16 11:54 10/03/16 18:10 10/03/16 21:23 10/04/16 02:09 Bedside Glucose 144 129 164 143 Test 10/04/16 04:42 10/04/16 07:54 White Blood Count 9.7 # Red Blood Count 3.74 L Hemoglobin 11.0 L Hematocrit 33.6 L Mean Corpuscular Volume 89.8 Mean Corpuscular Hemoglobin 29.4 Mean Corpuscular Hemoglobin Concent 32.7 Red Cell Distribution Width 18.2 H Platelet Count 117 #L Mean Platelet Volume 9.1 Neutrophils % 76.0 Lymphocytes % 15.1 Monocytes % 7.4 Eosinophils % 0.5 Basophils % 0.3 Nucleated Red Blood Cells % 0.0 Neutrophils # 7.4 Lymphocytes # 1.5 Monocytes # 0.7 Eosinophils # 0.1 Basophils # 0.0 Nucleated Red Blood Cells # 0.0 Sodium Level 129 L Potassium Level 4.5 Chloride Level 91 L Carbon Dioxide Level 22 Anion Gap 21 H Blood Urea Nitrogen 38 H Creatinine 3.50 H Glucose Level 114 # Calcium Level 7.8 L Phosphorus Level 6.1 H Magnesium Level 2.0 Bedside Glucose 100 Medications Medications Current Medications Ferrous Sulfate (Ferrous Sulfate (Ec)) 325 mg DAILY PO Last administered on 08:02; Admin Dose 325 MG; Start 09/27/16 at 09:00 Hydralazine HCl (Apresoline) 10 mg BID PO Last administered on 10/03/16 21:17 ; Admin Dose 10 MG; Start 09/27/16 at 09:00 Metoprolol Succinate (Toprol Xl) 25 mg DAILY PO Last administered on 10/04/16 08:02; Admin Dose 25 MG; Start 09/27/16 at 09:00 Multivit/Ca Carb/ B Cmplx/FA/Prenat (Billie-Roge) 1 tab DAILY PO Last administered on 10/04/16 08:01; Admin Dose 1 TAB; Start 09/27/16 at 09:00 Polyethylene Glycol (Miralax) 17 gm DAILY PO Last administered on 10/04/16 08: 05; Admin Dose 17 GM; Start 09/27/16 at 09:00 Pantoprazole (Protonix Tab) 40 mg DAILY@06 PO Last administered on 10/04/16 06 :42; Admin Dose 40 MG; Start 09/27/16 at 06:00 Zolpidem Tartrate (Ambien) 5 mg HS PRN PO INSOMNIA; Start 09/27/16 at 01:00 Acetaminophen (Tylenol Tab) 650 mg Q6H PRN PO PAIN AND OR ELEVATED TEMP; Start 09/27/16 at 01:00 Ondansetron HCl (Zofran Inj) 4 mg Q6H PRN IV NAUSEA AND/OR VOMITING Last administered on 10/01/16 15:02; Admin Dose 4 MG; Start 09/27/16 at 01:00 IV Flush (NS 10 ml) 3 ml Q8 IV Last administered on 10/04/16 06:42; Admin Dose 3 ML; Start 09/27/16 at 06:00 Diagnostic Test (Pha) (Accu-Chek) 1 ea 02 XX Last administered on 10/02/16 02: 12; Admin Dose 1 EA; Start 09/28/16 at 02:00 Miscellaneous Information 1 ea NOTE XX ; Start 09/27/16 at 07:30 Glucose (Glutose) 15 gm Q15M PRN PO DECREASED GLUCOSE; Start 09/27/16 at 07:30 Glucose (Glutose) 22.5 gm Q15M PRN PO DECREASED GLUCOSE; Start 09/27/16 at 07: 30 Dextrose (D50w Syringe) 25 ml Q15M PRN IV DECREASED GLUCOSE; Start 09/27/16 at 07:30 Dextrose (D50w Syringe) 50 ml Q15M PRN IV DECREASED GLUCOSE; Start 09/27/16 at 07:30 Glucagon (Glucagen) 1 mg Q15M PRN IM DECREASED GLUCOSE; Start 09/27/16 at 07:30 Glucose (Glutose) 15 gm Q15M PRN BUCCAL DECREASED GLUCOSE; Start 09/27/16 at 07 :30 Acetaminophen/ Hydrocodone Bitart ([place] (10/325)) 1.5 tab Q8H PO Last administered on 10/04/16 08:01; Admin Dose 1.5 TAB; Start 09/27/16 at 15:30 Clonidine (Catapres) 0.1 mg Q6H PRN PO SBP>170; Start 09/27/16 at 12:00 Morphine Sulfate (morphine) 2 mg Q2H PRN IV PAIN Last administered on 19:55; Admin Dose 2 MG; Start 09/27/16 at 22:00 Mupirocin (Bactroban) 1 applic BID TOP Last administered on 10/04/16 08:02; Admin Dose 1 APPLIC; Start 09/28/16 at 21:00 Atorvastatin Calcium (Lipitor) 40 mg DAILY@21 PO Last administered on 21:11; Admin Dose 40 MG; Start 09/29/16 at 21:00 Levofloxacin (Levaquin) 250 mg Q48H PO Last administered on 10/02/16 17:40; Admin Dose 250 MG; Start 09/30/16 at 15:00 BRANDI ERICKSON DO Oct 04, 2016 08:33
--- NOTE | 2016-10-04 11:55 | PN ---
Date/Time of Note Date/Time of Note DATE: 10/04/16 TIME: 11:54 Assessment/Plan Lines/Catheters IV Catheter Type (from Nrsg): Saline Lock [place] in Place (from Nrsg): No Assessment/Plan Chief Complaint/Hosp Course Status post angiogram and iliac artery angioplasty and stent placement SP angioplasty Right saphenous vein graft Patient with strong Doppler signals over the dorsalis pedis artery We will continue Plavix Patient will need left lower extremity intervention after she has recovered from the current procedure Discussed with Dr. Arce His cussed with the daughter Problems: Subjective 24 Hr Interval Summary Constitutional: improved Pain Control: mild Exam/Review of Systems Vital Signs Vitals Vital Signs Date Time Temp Pulse Resp B/P Pulse Ox O2 Delivery O2 Flow Rate FiO2 10/04/16 11:00 73 23 111/42 95 10/04/16 08:00 98.1 10/03/16 18:00 Room Air Intake and Output 10/03/16 10/03/16 10/04/16 15:00 23:00 07:00 Intake Total 180 ml 80 ml Output Total 0 ml Balance 180 ml 80 ml Exam Neck: non-tender, supple Respiratory: clear to auscultation, normal air movement Cardiovascular: nl pulses, regular rate and rhythm Gastrointestinal: nl liver, spleen, non-tender, soft Extremities: normal pulses Results Result Diagram: 10/04/16 0442 10/04/16 044 BALDOMERO PALOMO MD Oct 04, 2016 11:55
--- NOTE | 2016-10-04 11:59 | CONS ---
Date/Time of Note Date/Time of Note DATE: 10/04/16 TIME: 11:56 Assessment/Plan Assessment/Plan Chief Complaint/Hosp Course IMP: 1.Cardiomyopathy with low EF 2.HTN 3.HL 4.cad 5. Pad s/p peripheral bypass 6. ESRD on HD 7. Non-healing LE wound s/p R ext illiac sttenting and now s/p C[employer] OPERATOR to graft now patent 8. PPM 9. Anemia 10. Hyponatremia 11.Hypothyroid Recc: -Tele -serial ecg's -Continue BB/hydralazine -Continue statin -HD for volume removal -Continue abx's -Local wound care -Pain control -Possibl debridement Problems: Consultation Date/Type/Reason Admit Date/Time Sep 26, 2016 at 16:53 Initial Consult Date 09/27/2016 Type of Consultation: cardiology Reason for Consultation cardiomyopathy Referring Provider: BRANDI ERICKSON DO Exam/Review of Systems Vital Signs Vitals Vital Signs Date Time Temp Pulse Resp B/P Pulse Ox O2 Delivery O2 Flow Rate FiO2 10/04/16 11:00 73 23 111/42 95 10/04/16 08:00 98.1 10/03/16 18:00 Room Air Intake and Output 10/03/16 10/03/16 10/04/16 15:00 23:00 07:00 Intake Total 180 ml 80 ml Output Total 0 ml Balance 180 ml 80 ml Exam Review of Systems: CONSTITUTIONAL: No fevers, chills. PULMONARY: No sob CARDIOVASCULAR: No chest pain/palpitations GASTROINTESTINAL: No nausea/vomiting. GENITOURINARY: No hematuria/dysuria. MUSCULOSKELETAL: foot covered by dressing PSYCHIATRIC: The patient denies depression. NEUROLOGIC: No weakness Constitutional: alert Psych: no complaints Head: normocephalic ENMT: mucosa pink and moist Neck: jvd (9 cm water), supple Respiratory: diminished breath sounds (at bases/B) Cardiovascular: regular rate and rhythm Gastrointestinal: non-tender, soft Musculoskeletal: muscle tone (normal) Extremities: other (dopplerable DP pulses bilateral) Results Result Diagram: 10/04/16 0442 10/04/16 0442 Results 24 hrs Laboratory Tests Test 10/03/16 18:10 10/03/16 21:23 10/04/16 02:09 10/04/16 04:42 Bedside Glucose 129 164 143 White Blood Count 9.7 # Red Blood Count 3.74 L Hemoglobin 11.0 L Hematocrit 33.6 L Mean Corpuscular Volume 89.8 Mean Corpuscular Hemoglobin 29.4 Mean Corpuscular Hemoglobin Concent 32.7 Red Cell Distribution Width 18.2 H Platelet Count 117 #L Mean Platelet Volume 9.1 Neutrophils % 76.0 Lymphocytes % 15.1 Monocytes % 7.4 Eosinophils % 0.5 Basophils % 0.3 Nucleated Red Blood Cells % 0.0 Neutrophils # 7.4 Lymphocytes # 1.5 Monocytes # 0.7 Eosinophils # 0.1 Basophils # 0.0 Nucleated Red Blood Cells # 0.0 Sodium Level 129 L Potassium Level 4.5 Chloride Level 91 L Carbon Dioxide Level 22 Anion Gap 21 H Blood Urea Nitrogen 38 H Creatinine 3.50 H Glucose Level 114 # Calcium Level 7.8 L Phosphorus Level 6.1 H Magnesium Level 2.0 Test 10/04/16 07:54 10/04/16 11:07 Bedside Glucose 100 103 Medications Medications Current Medications Ferrous Sulfate (Ferrous Sulfate (Ec)) 325 mg DAILY PO Last administered on 08:02; Admin Dose 325 MG; Start 09/27/16 at 09:00 Hydralazine HCl (Apresoline) 10 mg BID PO Last administered on 10/03/16 21:17 ; Admin Dose 10 MG; Start 09/27/16 at 09:00 Metoprolol Succinate (Toprol Xl) 25 mg DAILY PO Last administered on 10/04/16 08:02; Admin Dose 25 MG; Start 09/27/16 at 09:00 Multivit/Ca Carb/ B Cmplx/FA/Prenat (Billie-Roge) 1 tab DAILY PO Last administered on 10/04/16 08:01; Admin Dose 1 TAB; Start 09/27/16 at 09:00 Polyethylene Glycol (Miralax) 17 gm DAILY PO Last administered on 10/04/16 08: 05; Admin Dose 17 GM; Start 09/27/16 at 09:00 Pantoprazole (Protonix Tab) 40 mg DAILY@06 PO Last administered on 10/04/16 06 :42; Admin Dose 40 MG; Start 09/27/16 at 06:00 Zolpidem Tartrate (Ambien) 5 mg HS PRN PO INSOMNIA; Start 09/27/16 at 01:00 Acetaminophen (Tylenol Tab) 650 mg Q6H PRN PO PAIN AND OR ELEVATED TEMP; Start 09/27/16 at 01:00 Ondansetron HCl (Zofran Inj) 4 mg Q6H PRN IV NAUSEA AND/OR VOMITING Last administered on 10/01/16 15:02; Admin Dose 4 MG; Start 09/27/16 at 01:00 IV Flush (NS 10 ml) 3 ml Q8 IV Last administered on 10/04/16 06:42; Admin Dose 3 ML; Start 09/27/16 at 06:00 Diagnostic Test (Pha) (Accu-Chek) 1 ea 02 XX Last administered on 10/02/16 02: 12; Admin Dose 1 EA; Start 09/28/16 at 02:00 Miscellaneous Information 1 ea NOTE XX ; Start 09/27/16 at 07:30 Glucose (Glutose) 15 gm Q15M PRN PO DECREASED GLUCOSE; Start 09/27/16 at 07:30 Glucose (Glutose) 22.5 gm Q15M PRN PO DECREASED GLUCOSE; Start 09/27/16 at 07: 30 Dextrose (D50w Syringe) 25 ml Q15M PRN IV DECREASED GLUCOSE; Start 09/27/16 at 07:30 Dextrose (D50w Syringe) 50 ml Q15M PRN IV DECREASED GLUCOSE; Start 09/27/16 at 07:30 Glucagon (Glucagen) 1 mg Q15M PRN IM DECREASED GLUCOSE; Start 09/27/16 at 07:30 Glucose (Glutose) 15 gm Q15M PRN BUCCAL DECREASED GLUCOSE; Start 09/27/16 at 07 :30 Acetaminophen/ Hydrocodone Bitart ([place] (10325)) 1.5 tab Q8H PO Last administered on 10/04/16 08:01; Admin Dose 1.5 TAB; Start 09/27/16 at 15:30 Clonidine (Catapres) 0.1 mg Q6H PRN PO SBP>170; Start 09/27/16 at 12:00 Morphine Sulfate (morphine) 2 mg Q2H PRN IV PAIN Last administered on 19:55; Admin Dose 2 MG; Start 09/27/16 at 22:00 Mupirocin (Bactroban) 1 applic BID TOP Last administered on 10/04/16 08:02; Admin Dose 1 APPLIC; Start 09/28/16 at 21:00 Atorvastatin Calcium (Lipitor) 40 mg DAILY@21 PO Last administered on 21:11; Admin Dose 40 MG; Start 09/29/16 at 21:00 Levofloxacin (Levaquin) 250 mg Q48H PO Last administered on 10/02/16 17:40; Admin Dose 250 MG; Start 09/30/16 at 15:00 YI RODRIGUEZ Oct 04, 2016 11:59
[2016-10-04] MEDS: LEVOFLOXACIN 250 MG TAB PO SCH (15:00)
[2016-10-04] MEDS: EPOETIN 4000 UNITS/1 ML INJ (ESRD) SC SCH (17:42)
[2016-10-04] MEDS ORDERED: CLOPIDOGREL 300 MG TAB ONE (18:02)
[2016-10-04] MEDS ORDERED: ONDANSETRON 4 MG INJ ONE (18:02)
[2016-10-04] MEDS ORDERED: IODIXANOL LOCM 100 ML BTL ONE (18:02)
[2016-10-04] MEDS ORDERED: LIDOCAINE 1% (MDV) 20 ML INJ ONE (18:02)
[2016-10-04] MEDS ORDERED: HEPARIN 1000 UNITS/NS (A-LINE) 1,000 ML ONE (18:02)
[2016-10-04] MEDS ORDERED: FENTAnyl 50 MCG/ML VIAL ONE ×2 (18:02)
--- NOTE | 2016-10-04 18:44 | CONS ---
Date/Time of Note Date/Time of Note DATE: 10/03/16 TIME: 18:44 vk le Assessment/Plan Assessment/Plan Chief Complaint/Hosp Course Anemia complex multifactorial cont to monitor blood count closely observe for bleeding and hemolysis transfuse as needed THROMBOCYTOPENIA INTERMITTENT FLUCTUATING MONITOR CLOSELY SL WORSE POSTOP NO NEEDS IN TRANSFUSION Right lower extremity gangrene. The patient has been seen by wound care. Plan for possible amputation. surgical f-up with Dr. Bianchi. The patient is also being followed by Dr. Riojas at [facility]. Will continue pain control. Continue wound care. ID f-up Cardiomyopathy with low EF HTN HL cad Pad s/p peripheral bypass ESRD on HD Non-healing LE wound s/p R ext illiac sttenting and now s/p COMMUNITY PHARMACIST to graft now patent PPM Hyponatremia Hypothyroid Problems: Consultation Date/Type/Reason Admit Date/Time Sep 26, 2016 at 16:53 Date of Consultation: Oct 03, 2016 Type of Consultation: hemeonc Reason for Consultation anemia Referring Provider: BRANDI ERICKSON DO Hx of Present Illness HISTORY OF PRESENT ILLNESS: This is a 75-year-old female with a past medical history of end-stage renal disease on dialysis Sunday, Sunday and Sunday, access PermCath, history of peripheral vascular disease, status post right lower extremity bypass, history of cardiomyopathy, coronary artery disease, status post CABG, history of arrhythmia, diabetes. She has had previous admissions to [facility]. The patient was being followed currently at [facility] due to a worsening right lower extremity wound. She had previous bypass performed, but according to the patient's family, the patient's wound is not amenable to revascularization. As a result, the patient is brought into the hospital for possibility of a right lower extremity amputation. The patient complains of right lower extremity pain. She denies any recent episodes of fever, chills, nausea, vomiting or shortness of breath. i was asked to provide hemeonc consult re anemia PAST MEDICAL HISTORY: Patient with end-stage renal disease, diabetes, hypertension, cardiomyopathy, hypothyroidism, anemia, coronary artery disease. PAST SURGICAL HISTORY: Status post CABG. Status post right lower extremity fem-pop. MEDICATIONS: Medications have been reviewed and reconciled. FAMILY HISTORY: No family history of kidney disease or heart disease. SOCIAL HISTORY: Noncontributory. ALLERGIES: NO KNOWN DRUG ALLERGIES. REVIEW OF SYSTEMS: A 14-point review of systems was significant for positives in HPI, otherwise negative. Gastrointestinal: no complaints Genitourinary: no complaints Musculoskeletal: no complaints Skin: no complaints Neurologic: no complaints Psychological: no complaints Social History Smoking Status: Never smoker Exam/Review of Systems Vital Signs Vitals Vital Signs Date Time Temp Pulse Resp B/P Pulse Ox O2 Delivery O2 Flow Rate FiO2 10/04/16 16:30 97.4 81 11 120/46 98 10/03/16 18:00 Room Air Intake and Output 10/03/16 10/03/16 10/04/16 15:00 23:00 07:00 Intake Total 180 ml 80 ml Output Total 0 ml Balance 180 ml 80 ml Exam PHYSICAL EXAMINATION: HEENT: Head is normocephalic. Pupils are reactive to light. NECK: Supple. HEART: Regular rate. CHEST: Shows PermCath. ABDOMEN: Soft. Nontender on palpation. No rebound or guarding. EXTREMITIES: Positive for dressing over bilateral lower extremities. There is noted erythema in the right lower extremity. Noted wound. NEUROLOGIC: No focal deficits. Results Result Diagram: 10/04/16 0442 10/04/16 0442 Results 24 hrs Laboratory Tests Test 10/03/16 21:23 10/04/16 02:09 10/04/16 04:42 10/04/16 07:54 Bedside Glucose 164 143 100 White Blood Count 9.7 # Red Blood Count 3.74 L Hemoglobin 11.0 L Hematocrit 33.6 L Mean Corpuscular Volume 89.8 Mean Corpuscular Hemoglobin 29.4 Mean Corpuscular Hemoglobin Concent 32.7 Red Cell Distribution Width 18.2 H Platelet Count 117 #L Mean Platelet Volume 9.1 Neutrophils % 76.0 Lymphocytes % 15.1 Monocytes % 7.4 Eosinophils % 0.5 Basophils % 0.3 Nucleated Red Blood Cells % 0.0 Neutrophils # 7.4 Lymphocytes # 1.5 Monocytes # 0.7 Eosinophils # 0.1 Basophils # 0.0 Nucleated Red Blood Cells # 0.0 Sodium Level 129 L Potassium Level 4.5 Chloride Level 91 L Carbon Dioxide Level 22 Anion Gap 21 H Blood Urea Nitrogen 38 H Creatinine 3.50 H Glucose Level 114 # Calcium Level 7.8 L Phosphorus Level 6.1 H Magnesium Level 2.0 Test 10/04/16 11:07 10/04/16 17:12 Bedside Glucose 103 126 Medications Medications Current Medications Ferrous Sulfate (Ferrous Sulfate (Ec)) 325 mg DAILY PO Last administered on 08:02; Admin Dose 325 MG; Start 09/27/16 at 09:00 Hydralazine HCl (Apresoline) 10 mg BID PO Last administered on 10/03/16 21:17 ; Admin Dose 10 MG; Start 09/27/16 at 09:00 Metoprolol Succinate (Toprol Xl) 25 mg DAILY PO Last administered on 10/04/16 08:02; Admin Dose 25 MG; Start 09/27/16 at 09:00 Multivit/Ca Carb/ B Cmplx/FA/Prenat (Billie-Roge) 1 tab DAILY PO Last administered on 10/04/16 08:01; Admin Dose 1 TAB; Start 09/27/16 at 09:00 Polyethylene Glycol (Miralax) 17 gm DAILY PO Last administered on 10/04/16 08: 05; Admin Dose 17 GM; Start 09/27/16 at 09:00 Pantoprazole (Protonix Tab) 40 mg DAILY@06 PO Last administered on 10/04/16 06 :42; Admin Dose 40 MG; Start 09/27/16 at 06:00 Zolpidem Tartrate (Ambien) 5 mg HS PRN PO INSOMNIA; Start 09/27/16 at 01:00 Acetaminophen (Tylenol Tab) 650 mg Q6H PRN PO PAIN AND OR ELEVATED TEMP; Start 09/27/16 at 01:00 Ondansetron HCl (Zofran Inj) 4 mg Q6H PRN IV NAUSEA AND/OR VOMITING Last administered on 10/01/16 15:02; Admin Dose 4 MG; Start 09/27/16 at 01:00 IV Flush (NS 10 ml) 3 ml Q8 IV Last administered on 10/04/16 14:17; Admin Dose 3 ML; Start 09/27/16 at 06:00 Diagnostic Test (Pha) (Accu-Chek) 1 ea 02 XX Last administered on 10/02/16 02: 12; Admin Dose 1 EA; Start 09/28/16 at 02:00 Miscellaneous Information 1 ea NOTE XX ; Start 09/27/16 at 07:30 Glucose (Glutose) 15 gm Q15M PRN PO DECREASED GLUCOSE; Start 09/27/16 at 07:30 Glucose (Glutose) 22.5 gm Q15M PRN PO DECREASED GLUCOSE; Start 09/27/16 at 07: 30 Dextrose (D50w Syringe) 25 ml Q15M PRN IV DECREASED GLUCOSE; Start 09/27/16 at 07:30 Dextrose (D50w Syringe) 50 ml Q15M PRN IV DECREASED GLUCOSE; Start 09/27/16 at 07:30 Glucagon (Glucagen) 1 mg Q15M PRN IM DECREASED GLUCOSE; Start 09/27/16 at 07:30 Glucose (Glutose) 15 gm Q15M PRN BUCCAL DECREASED GLUCOSE; Start 09/27/16 at 07 :30 Acetaminophen/ Hydrocodone Bitart ([place] (10/325)) 1.5 tab Q8H PO Last administered on 10/04/16 15:43; Admin Dose 1.5 TAB; Start 09/27/16 at 15:30 Clonidine (Catapres) 0.1 mg Q6H PRN PO SBP>170; Start 09/27/16 at 12:00 Morphine Sulfate (morphine) 2 mg Q2H PRN IV PAIN Last administered on 19:55; Admin Dose 2 MG; Start 09/27/16 at 22:00 Mupirocin (Bactroban) 1 applic BID TOP Last administered on 10/04/16 08:02; Admin Dose 1 APPLIC; Start 09/28/16 at 21:00 Atorvastatin Calcium (Lipitor) 40 mg DAILY@21 PO Last administered on 21:11; Admin Dose 40 MG; Start 09/29/16 at 21:00 Levofloxacin (Levaquin) 250 mg Q48H PO Last administered on 10/04/16 15:00; Admin Dose 250 MG; Start 09/30/16 at 15:00 Aspirin (Aspirin) 81 mg DAILY PO ; Start 10/05/16 at 09:00 Clopidogrel Bisulfate (plaVIX) 75 mg DAILY PO ; Start 10/05/16 at 09:00 Miscellaneous Information (*Rx Drug Level Order Reminder*) VANCO RANDOM LEVEL... ONCE ONCE XX ; Start 10/05/16 at 05:00; Stop 10/05/16 at 05:01 FABY HORN MD Oct 04, 2016 18:44
--- NOTE | 2016-10-04 18:44 | CONS ---
Date/Time of Note Date/Time of Note DATE: 10/04/16 TIME: 18:40 Assessment/Plan Assessment/Plan Chief Complaint/Hosp Course Anemia complex multifactorial cont to monitor blood count cosely observe for bleeding and hemolysis transfuse as needed THROMBOCYTOPENIA INTERMITTENT FLUCTUATING MONITOR CLOSELY SL WORSE POSTOP NO NEEDS IN TRANSFUSION Cardiomyopathy with low EF HTN HL cad Pad s/p peripheral bypass ESRD on HD Non-healing LE wound s/p R ext illiac sttenting and now s/p OIL AND GAS SUPERINTENDENT to graft now patent PPM Hyponatremia Hypothyroid Problems: Consultation Date/Type/Reason Admit Date/Time Sep 26, 2016 at 16:53 Initial Consult Date [facility] Referring Provider: BRANDI ERICKSON DO 24 HR Interval Summary Free Text/Dictation ALL NOTED D/W PT AND FAMILY COUNT STABLE Exam/Review of Systems Vital Signs Vitals Vital Signs Date Time Temp Pulse Resp B/P Pulse Ox O2 Delivery O2 Flow Rate FiO2 10/04/16 16:30 97.4 81 11 120/46 98 10/03/16 18:00 Room Air Intake and Output 10/03/16 10/03/16 10/04/16 15:00 23:00 07:00 Intake Total 180 ml 80 ml Output Total 0 ml Balance 180 ml 80 ml Exam CONSTITUTIONAL: No fevers, chills. PULMONARY: No sob CARDIOVASCULAR: No chest pain/palpitations GASTROINTESTINAL: No nausea/vomiting. GENITOURINARY: No hematuria/dysuria. MUSCULOSKELETAL: foot covered by dressing PSYCHIATRIC: The patient denies depression. NEUROLOGIC: No weakness Constitutional: alert Psych: no complaints Head: normocephalic ENMT: mucosa pink and moist Neck: jvd (9 cm water), supple Respiratory: diminished breath sounds (at bases/B) Cardiovascular: regular rate and rhythm Gastrointestinal: non-tender, soft Musculoskeletal: muscle tone (normal) Extremities: other (dopplerable DP pulses bilateral) Results Result Diagram: 10/04/16 0442 10/04/16 0442 Results 24 hrs Laboratory Tests Test 10/03/16 21:23 10/04/16 02:09 10/04/16 04:42 10/04/16 07:54 Bedside Glucose 164 143 100 White Blood Count 9.7 # Red Blood Count 3.74 L Hemoglobin 11.0 L Hematocrit 33.6 L Mean Corpuscular Volume 89.8 Mean Corpuscular Hemoglobin 29.4 Mean Corpuscular Hemoglobin Concent 32.7 Red Cell Distribution Width 18.2 H Platelet Count 117 #L Mean Platelet Volume 9.1 Neutrophils % 76.0 Lymphocytes % 15.1 Monocytes % 7.4 Eosinophils % 0.5 Basophils % 0.3 Nucleated Red Blood Cells % 0.0 Neutrophils # 7.4 Lymphocytes # 1.5 Monocytes # 0.7 Eosinophils # 0.1 Basophils # 0.0 Nucleated Red Blood Cells # 0.0 Sodium Level 129 L Potassium Level 4.5 Chloride Level 91 L Carbon Dioxide Level 22 Anion Gap 21 H Blood Urea Nitrogen 38 H Creatinine 3.50 H Glucose Level 114 # Calcium Level 7.8 L Phosphorus Level 6.1 H Magnesium Level 2.0 Test 10/04/16 11:07 10/04/16 17:12 Bedside Glucose 103 126 Medications Medications Current Medications Ferrous Sulfate (Ferrous Sulfate (Ec)) 325 mg DAILY PO Last administered on 08:02; Admin Dose 325 MG; Start 09/27/16 at 09:00 Hydralazine HCl (Apresoline) 10 mg BID PO Last administered on 10/03/16 21:17 ; Admin Dose 10 MG; Start 09/27/16 at 09:00 Metoprolol Succinate (Toprol Xl) 25 mg DAILY PO Last administered on 10/04/16 08:02; Admin Dose 25 MG; Start 09/27/16 at 09:00 Multivit/Ca Carb/ B Cmplx/FA/Prenat (Billie-Roge) 1 tab DAILY PO Last administered on 10/04/16 08:01; Admin Dose 1 TAB; Start 09/27/16 at 09:00 Polyethylene Glycol (Miralax) 17 gm DAILY PO Last administered on 10/04/16 08: 05; Admin Dose 17 GM; Start 09/27/16 at 09:00 Pantoprazole (Protonix Tab) 40 mg DAILY@06 PO Last administered on 10/04/16 06 :42; Admin Dose 40 MG; Start 09/27/16 at 06:00 Zolpidem Tartrate (Ambien) 5 mg HS PRN PO INSOMNIA; Start 09/27/16 at 01:00 Acetaminophen (Tylenol Tab) 650 mg Q6H PRN PO PAIN AND OR ELEVATED TEMP; Start 09/27/16 at 01:00 Ondansetron HCl (Zofran Inj) 4 mg Q6H PRN IV NAUSEA AND/OR VOMITING Last administered on 10/01/16 15:02; Admin Dose 4 MG; Start 09/27/16 at 01:00 IV Flush (NS 10 ml) 3 ml Q8 IV Last administered on 10/04/16 14:17; Admin Dose 3 ML; Start 09/27/16 at 06:00 Diagnostic Test (Pha) (Accu-Chek) 1 ea 02 XX Last administered on 10/02/16 02: 12; Admin Dose 1 EA; Start 09/28/16 at 02:00 Miscellaneous Information 1 ea NOTE XX ; Start 09/27/16 at 07:30 Glucose (Glutose) 15 gm Q15M PRN PO DECREASED GLUCOSE; Start 09/27/16 at 07:30 Glucose (Glutose) 22.5 gm Q15M PRN PO DECREASED GLUCOSE; Start 09/27/16 at 07: 30 Dextrose (D50w Syringe) 25 ml Q15M PRN IV DECREASED GLUCOSE; Start 09/27/16 at 07:30 Dextrose (D50w Syringe) 50 ml Q15M PRN IV DECREASED GLUCOSE; Start 09/27/16 at 07:30 Glucagon (Glucagen) 1 mg Q15M PRN IM DECREASED GLUCOSE; Start 09/27/16 at 07:30 Glucose (Glutose) 15 gm Q15M PRN BUCCAL DECREASED GLUCOSE; Start 09/27/16 at 07 :30 Acetaminophen/ Hydrocodone Bitart ([place] (10/325)) 1.5 tab Q8H PO Last administered on 10/04/16 15:43; Admin Dose 1.5 TAB; Start 09/27/16 at 15:30 Clonidine (Catapres) 0.1 mg Q6H PRN PO SBP>170; Start 09/27/16 at 12:00 Morphine Sulfate (morphine) 2 mg Q2H PRN IV PAIN Last administered on 19:55; Admin Dose 2 MG; Start 09/27/16 at 22:00 Mupirocin (Bactroban) 1 applic BID TOP Last administered on 10/04/16 08:02; Admin Dose 1 APPLIC; Start 09/28/16 at 21:00 Atorvastatin Calcium (Lipitor) 40 mg DAILY@21 PO Last administered on 7/25/ 17at 21:11; Admin Dose 40 MG; Start 09/29/16 at 21:00 Levofloxacin (Levaquin) 250 mg Q48H PO Last administered on 10/04/16t 15:00; Admin Dose 250 MG; Start 09/30/16 at 15:00 Aspirin (Aspirin) 81 mg DAILY PO ; Start 10/05/16 at 09:00 Clopidogrel Bisulfate (plaVIX) 75 mg DAILY PO ; Start 10/05/16 at 09:00 Miscellaneous Information (*Rx Drug Level Order Reminder*) VANCO RANDOM LEVEL... ONCE ONCE XX ; Start 10/05/16 at 05:00; Stop 10/05/16 at 05:01 FABY HORN MD Oct 04, 2016 18:44
--- NOTE | 2016-10-04 19:31 | CONS ---
Date/Time of Note Date/Time of Note DATE: 10/04/16 TIME: 19:21 Assessment/Plan Assessment/Plan Chief Complaint/Hosp Course ID PROGRESS NOTE TOTAL ABX DAY # => Levaquin +Vanco IV post HD 24H INTERVAL SUMMARY * No fevers, stable, resting comfortably * Status post angiogram and iliac artery angioplasty and stent placement, SP angioplasty Right saphenous vein graft * LABS: 10/04/16 0442 10/04/16441 PHYSICAL EXAMINATION: GENERAL: 75 yo F HEENT: Unremarkable NECK: Supple, trachea midline. CHEST: Rise symmetrical without dyspnea HEART: RRR ABDOMEN: Soft, NT EXTREMITIES: Warm, doppler pulse, DSG C/.D/I ID ASSESSMENT: 75 yo F w/ 1. Sepsis with staph bacteremia==> Staph "CoNS" 2. 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 Severe peripheral arterial disease, s/p angiogram and iliac artery angioplasty and stent placement 09/29/16 * now s/p BLOOD BANK CREDIT CLERK to graft now patent -> started on Plavix 4. End-stage renal disease, hemodialysis dependent * Left upper extremity AV fistula 5. DM w/complications of DM polyneuropathies: Nephro, Peripheral, Autonomic 6. CAD, w/Hx cardiomyopathy, hx of CABG, hx of non-ST elevation myocardial infarction type 2 7. Anemia of chronic disease, Epogen (+)MRSA Nares 09/26 on Bactroban -> repeat MRSA nares ICU protocol pending CURRENT ABX: Levaquin +Vanco IV post HD ID RECOMMENDATIONS: 1. Continue current ABX -- will follow up tomorrow . Problems: Consultation Date/Type/Reason Admit Date/Time Sep 26, 2016 at 16:53 Initial Consult Date Type of Consultation: ID Referring Provider: BRANDI ERICKSON DO Exam/Review of Systems Vital Signs Vitals Vital Signs Date Time Temp Pulse Resp B/P Pulse Ox O2 Delivery O2 Flow Rate FiO2 10/04/16 16:30 97.4 81 11 120/46 98 10/03/16 18:00 Room Air Intake and Output 10/03/16 10/03/16 10/04/16 15:00 23:00 07:00 Intake Total 180 ml 80 ml Output Total 0 ml Balance 180 ml 80 ml Results Result Diagram: 10/04/1644110/04/16441 Results 24 hrs Laboratory Tests Test 10/03/16 21:23 10/04/16 02:09 10/04/16 04:42 10/04/16 07:54 Bedside Glucose 164 143 100 White Blood Count 9.7 # Red Blood Count 3.74 L Hemoglobin 11.0 L Hematocrit 33.6 L Mean Corpuscular Volume 89.8 Mean Corpuscular Hemoglobin 29.4 Mean Corpuscular Hemoglobin Concent 32.7 Red Cell Distribution Width 18.2 H Platelet Count 117 #L Mean Platelet Volume 9.1 Neutrophils % 76.0 Lymphocytes % 15.1 Monocytes % 7.4 Eosinophils % 0.5 Basophils % 0.3 Nucleated Red Blood Cells % 0.0 Neutrophils # 7.4 Lymphocytes # 1.5 Monocytes # 0.7 Eosinophils # 0.1 Basophils # 0.0 Nucleated Red Blood Cells # 0.0 Sodium Level 129 L Potassium Level 4.5 Chloride Level 91 L Carbon Dioxide Level 22 Anion Gap 21 H Blood Urea Nitrogen 38 H Creatinine 3.50 H Glucose Level 114 # Calcium Level 7.8 L Phosphorus Level 6.1 H Magnesium Level 2.0 Test 10/04/16 11:07 10/04/16 17:12 Bedside Glucose 103 126 Medications Medications Current Medications Ferrous Sulfate (Ferrous Sulfate (Ec)) 325 mg DAILY PO Last administered on 08:02; Admin Dose 325 MG; Start 09/27/16 at 09:00 Hydralazine HCl (Apresoline) 10 mg BID PO Last administered on 10/03/16 21:17 ; Admin Dose 10 MG; Start 09/27/16 at 09:00 Metoprolol Succinate (Toprol Xl) 25 mg DAILY PO Last administered on 10/04/16 08:02; Admin Dose 25 MG; Start 09/27/16 at 09:00 Multivit/Ca Carb/ B Cmplx/FA/Prenat (Billie-Roge) 1 tab DAILY PO Last administered on 10/04/16 08:01; Admin Dose 1 TAB; Start 09/27/16 at 09:00 Polyethylene Glycol (Miralax) 17 gm DAILY PO Last administered on 10/04/16 08: 05; Admin Dose 17 GM; Start 09/27/16 at 09:00 Pantoprazole (Protonix Tab) 40 mg DAILY@06 PO Last administered on 10/04/16 06 :42; Admin Dose 40 MG; Start 09/27/16 at 06:00 Zolpidem Tartrate (Ambien) 5 mg HS PRN PO INSOMNIA; Start 09/27/16 at 01:00 Acetaminophen (Tylenol Tab) 650 mg Q6H PRN PO PAIN AND OR ELEVATED TEMP; Start 09/27/16 at 01:00 Ondansetron HCl (Zofran Inj) 4 mg Q6H PRN IV NAUSEA AND/OR VOMITING Last administered on 10/01/16 15:02; Admin Dose 4 MG; Start 09/27/16 at 01:00 IV Flush (NS 10 ml) 3 ml Q8 IV Last administered on 10/04/16 14:17; Admin Dose 3 ML; Start 09/27/16 at 06:00 Diagnostic Test (Pha) (Accu-Chek) 1 ea 02 XX Last administered on 10/02/16 02: 12; Admin Dose 1 EA; Start 09/28/16 at 02:00 Miscellaneous Information 1 ea NOTE XX ; Start 09/27/16 at 07:30 Glucose (Glutose) 15 gm Q15M PRN PO DECREASED GLUCOSE; Start 09/27/16 at 07:30 Glucose (Glutose) 22.5 gm Q15M PRN PO DECREASED GLUCOSE; Start 09/27/16 at 07: 30 Dextrose (D50w Syringe) 25 ml Q15M PRN IV DECREASED GLUCOSE; Start 09/27/16 at 07:30 Dextrose (D50w Syringe) 50 ml Q15M PRN IV DECREASED GLUCOSE; Start 09/27/16 at 07:30 Glucagon (Glucagen) 1 mg Q15M PRN IM DECREASED GLUCOSE; Start 09/27/16 at 07:30 Glucose (Glutose) 15 gm Q15M PRN BUCCAL DECREASED GLUCOSE; Start 09/27/16 at 07 :30 Acetaminophen/ Hydrocodone Bitart ([place] (10/325)) 1.5 tab Q8H PO Last administered on 10/04/16 15:43; Admin Dose 1.5 TAB; Start 09/27/16 at 15:30 Clonidine (Catapres) 0.1 mg Q6H PRN PO SBP>170; Start 09/27/16 at 12:00 Morphine Sulfate (morphine) 2 mg Q2H PRN IV PAIN Last administered on 19:55; Admin Dose 2 MG; Start 09/27/16 at 22:00 Mupirocin (Bactroban) 1 applic BID TOP Last administered on 10/04/16 08:02; Admin Dose 1 APPLIC; Start 09/28/16 at 21:00 Atorvastatin Calcium (Lipitor) 40 mg DAILY@21 PO Last administered on 21:11; Admin Dose 40 MG; Start 09/29/16 at 21:00 Levofloxacin (Levaquin) 250 mg Q48H PO Last administered on 10/04/16 15:00; Admin Dose 250 MG; Start 09/30/16 at 15:00 Aspirin (Aspirin) 81 mg DAILY PO ; Start 10/05/16 at 09:00 Clopidogrel Bisulfate (plaVIX) 75 mg DAILY PO ; Start 10/05/16 at 09:00 Miscellaneous Information (*Rx Drug Level Order Reminder*) VANCO RANDOM LEVEL... ONCE ONCE XX ; Start 10/05/16 at 05:00; Stop 10/05/16 at 05:01 QUINN SINGH NP Oct 04, 2016 19:31
[2016-10-04] MEDS: ATORVASTATIN 40 MG TAB PO SCH (21:17)
[2016-10-05] VITALS (12 sets, daily range): BP systolic 102–122; BP diastolic 51–57; PULSE 72–80; RESP 16–19
[2016-10-05] MEDS: ACCU-CHEK XX SCH (02:00)
[2016-10-05 05:42] LABS: ABNORMAL IP MESSAGE 1; BASOPHILS % 0.4 % (0.0-2.0); EOSINOPHILS % 0.4 % (0.0-7.0); HEMATOCRIT 31.4 % (37.0-47.0); HEMOGLOBIN 10.3 g/dl (12.0-16.0); LYMPHOCYTES # 1.3 10^3/ul (0.8-2.9); LYMPHOCYTES % 16.1 % (15.0-51.0); MEAN CORPUSCULAR HGB CONC 32.8 g/dl (32.0-37.0); MEAN CORPUSCULAR VOLUME 88.5 fl (82.0-101.0); MONOCYTE # 0.6 10^3/ul (0.3-0.9); MONOCYTES % 7.6 % (0.0-11.0); NEUTROPHIL # 5.9 10^3/ul (1.6-7.5); NEUTROPHILS % 74.9 % (39.0-77.0); PLATELET COUNT 97 10^3/UL (140-415); RED BLOOD COUNT 3.55 10^6/ul (4.20-5.40); RED CELL DISTRIBUTION WIDTH 18.3 % (11.5-14.5); WHITE BLOOD COUNT 7.9 10^3/ul (4.8-10.8)
[2016-10-05 05:50] LABS: POSITIVE DIFF @See below
[2016-10-05] MEDS: PANTOPRAZOLE (EC) 40 MG TAB PO SCH (05:50)
[2016-10-05] MEDS: LEVOTHYROXINE 88 MCG TAB PO SCH (06:23)
[2016-10-05 06:28] LABS: CALCIUM 7.7 mg/dl (8.4-10.2); CREATININE 2.87 mg/dl (0.44-1.00); MAGNESIUM 1.9 mg/dl (1.7-2.5); PHOSPHORUS 4.8 mg/dl (2.5-4.9); POTASSIUM 4.2 mmol/L (3.5-5.1)
--- NOTE | 2016-10-05 07:12 | PN ---
DATE: 09/28/2016 SUBJECTIVE DATA: I spoke with the patient's daughter informing her of the pending evaluation by vascular surgery. The patient's daughter was requesting angio to see if there is any possible intervention either than amputation. The patient also had hemodialysis yesterday, and following dialysis had chills. Blood cultures were drawn and the patient was started on antibiotic therapy. No other acute events noted. OBJECTIVE DATA: VITAL SIGNS: Blood pressure 114/56, respirations 18, pulse 79, temperature 98.3. HEENT: Head is normocephalic. Pupils equal and reactive to light. NECK: supple. HEART: Regular rate. LUNGS: Diminished breath sounds at the base. ABDOMEN: Soft and nontender to palpation. EXTREMITIES: Negative for clubbing and cyanosis, positive trace edema, positive gangrene in right heel. Noted wounds in the left lower heel. DERMATOLOGIC: Clean, no rashes. MUSCULOSKELETAL: No joint effusion. NEUROLOGIC: No focal deficits. LABORATORY AND DIAGNOSTIC DATA: White count 6.1, hemoglobin 10.4, hematocrit 31.9, platelet count 80,000. Sodium 134, potassium 4.2, chloride 96, BUN 26, creatinine 2.8, phosphorus 5.2, calcium 8.0. ASSESSMENT AND PLAN: 1. Right lower extremity gangrene with ongoing limb ischemia. The patient is pending evaluation by surgeon, Dr. Leonard Bianchi for possible amputation. The patient was also seen by amputation prevention clinic by Dr. Neel Riojas. At this point would continue current treatment plan, continue wound care, continue pain control and will follow up with surgery for recommendations. 2. End-stage renal disease. The patient is on dialysis Sunday, Sunday and Sunday with plans for dialysis tomorrow. 3. Coronary artery disease with history of cardiomyopathy. The patient is stable, will follow up with cardiology for preoperative evaluation. 4. Anemia. Continue to monitor hemoglobin and hematocrit. Continue Epogen as needed. 5. Metabolic disorder. Will monitor calcium and phosphorus levels, defer phos binders at this time. 6. Diabetes. Continue current insulin regimen. 7. Hypertension. Continue current blood pressure regimen. 8. Hypothyroidism. Continue Synthroid. 9. Gastrointestinal and deep venous thrombosis prophylaxis, continue PPI and heparin, sequential leg squeezers. 10. Systemic inflammatory response syndrome. The patient is on empiric antibiotics. Blood cultures have been sent. Will follow up with infectious disease for further recommendations. Dictated By: Ihsan Johns DO /[email or web address] /Document#: [id number]
[2016-10-05] MEDS: HYDROCODONE/APAP (10/325) TAB PO SCH ×3 (07:30→23:56)
[2016-10-05] MEDS: INSULIN ASPART [NOVOLOG] 3 ML PEN SC SCH ×4 (07:55→21:00)
[2016-10-05] MEDS: ASPIRIN 81 MG TAB PO SCH (08:59)
[2016-10-05] MEDS: FERROUS SULFATE (EC) 325 MG TAB PO SCH (08:59)
[2016-10-05] MEDS: SEVELAMER 800 MG TAB PO SCH ×3 (08:59→18:11)
[2016-10-05] MEDS: MULTIVIT/CA CARB/B CMPLX/FA TAB PO SCH (08:59)
[2016-10-05] MEDS: MUPIROCIN 2% 22 GM OINT TOP SCH ×2 (09:00→20:59)
[2016-10-05] MEDS: METOPROLOL (XL) 25 MG TAB PO SCH (09:01)
[2016-10-05] MEDS: POLYETHYLENE GLYCOL 17 GM PACKET PO SCH (09:01)
[2016-10-05] MEDS: CLOPIDOGREL 75 MG TAB PO SCH (09:01)
--- NOTE | 2016-10-05 09:13 | PN ---
Date/Time of Note Date/Time of Note DATE: 10/05/16 TIME: 09:12 Assessment/Plan VTE Prophylaxis VTE Prophylaxis Intervention: other Lines/Catheters IV Catheter Type (from [facility]): permacath Urinary Cath still in place: No Assessment/Plan Chief Complaint/Hosp Course Right lower extremity gangrene. status post angiogram with stenting of the iliac artery -Status post angiogram with angioplasty of previous occluded vessel Continue antibiotic therapy Continue pain control Left lower extremity peripheral vascular disease Possible angiogram in next 1-2 days End-stage renal disease. Plan for hemodialysis today Hyponatremia Limit free water intake Dialysis on 140 sodium bath Coronary artery disease. History of cardiomyopathy. The patient is currently stable. Anemia. Monitor hemoglobin and hematocrit. Continuing Epogen 5. Diabetes. Continue current insulin regimen. 6. Hypertension. Continue current blood pressure regimen. 7. Hypothyroidism. The patient takes Synthroid. 8. GI and DVT prophylaxis. 9. Status post right hip fracture. 10. Mineral bone disorder Monitor calcium phosphorus levels Problems: Subjective 24 Hr Interval Summary Free Text/Dictation Patient seen and examined no sign transferred to telemetry Patient's pain is improving a right lower extremity No other events noted Exam/Review of Systems Vital Signs Vitals Vital Signs Date Time Temp Pulse Resp B/P Pulse Ox O2 Delivery O2 Flow Rate FiO2 10/05/16 08:12 80 10/05/16 07:20 98.7 18 122/57 91 10/04/16 22:00 Room Air Intake and Output 10/04/16 10/04/16 10/05/16 15:00 23:00 07:00 Intake Total 800 ml 240 ml 100 ml Output Total 3000 ml Balance -2200 ml 240 ml 100 ml Exam HEENT: Head is normocephalic. NECK: Supple. HEART: Regular rate LUNGS: Show diminished breath sounds at base. ABDOMEN: Soft, nontender to palpation without rebound or guarding. EXTREMITIES: Negative for clubbing, cyanosis. Noted gangrene right lower extremity DERMATOLOGIC: No rashes. MUSCULOSKELETAL: No joint effusions, NEUROLOGIC: No change in exam. Results Result Diagram: 10/05/16 0506 10/05/16 0506 Results 24 hrs Laboratory Tests Test 10/04/16 11:07 10/04/16 17:12 10/04/16 21:12 10/05/16 05:06 Bedside Glucose 103 126 136 White Blood Count 7.9 Red Blood Count 3.55 L Hemoglobin 10.3 L Hematocrit 31.4 L Mean Corpuscular Volume 88.5 Mean Corpuscular Hemoglobin 29.0 Mean Corpuscular Hemoglobin Concent 32.8 Red Cell Distribution Width 18.3 H Platelet Count 97 L Mean Platelet Volume 10.0 Neutrophils % 74.9 Lymphocytes % 16.1 Monocytes % 7.6 Eosinophils % 0.4 Basophils % 0.4 Nucleated Red Blood Cells % 0.0 Neutrophils # 5.9 Lymphocytes # 1.3 Monocytes # 0.6 Eosinophils # 0.0 Basophils # 0.0 Nucleated Red Blood Cells # 0.0 Sodium Level 130 L Potassium Level 4.2 Chloride Level 91 L Carbon Dioxide Level 26 Anion Gap 17 H Blood Urea Nitrogen 24 #H Creatinine 2.87 H Glucose Level 95 Calcium Level 7.7 L Phosphorus Level 4.8 Magnesium Level 1.9 Test 10/05/16 05:07 10/05/16 08:55 Random Vancomycin Level 14.5 Bedside Glucose 106 Medications Medications Current Medications Ferrous Sulfate (Ferrous Sulfate (Ec)) 325 mg DAILY PO Last administered on 08:59; Admin Dose 325 MG; Start 09/27/16 at 09:00 Hydralazine HCl (Apresoline) 10 mg BID PO Last administered on 10/05/16 09:00 ; Admin Dose 10 MG; Start 09/27/16 at 09:00 Metoprolol Succinate (Toprol Xl) 25 mg DAILY PO Last administered on 10/05/16 09:01; Admin Dose 25 MG; Start 09/27/16 at 09:00 Multivit/Ca Carb/ B Cmplx/FA/Prenat (Billie-Roge) 1 tab DAILY PO Last administered on 10/05/16 08:59; Admin Dose 1 TAB; Start 09/27/16 at 09:00 Polyethylene Glycol (Miralax) 17 gm DAILY PO Last administered on 10/05/16 09: 01; Admin Dose 17 GM; Start 09/27/16 at 09:00 Pantoprazole (Protonix Tab) 40 mg DAILY@06 PO Last administered on 10/05/16 05 :50; Admin Dose 40 MG; Start 09/27/16 at 06:00 Zolpidem Tartrate (Ambien) 5 mg HS PRN PO INSOMNIA; Start 09/27/16 at 01:00 Acetaminophen (Tylenol Tab) 650 mg Q6H PRN PO PAIN AND OR ELEVATED TEMP; Start 09/27/16 at 01:00 Ondansetron HCl (Zofran Inj) 4 mg Q6H PRN IV NAUSEA AND/OR VOMITING Last administered on 10/01/16 15:02; Admin Dose 4 MG; Start 09/27/16 at 01:00 IV Flush (NS 10 ml) 3 ml Q8 IV Last administered on 10/05/16 05:50; Admin Dose 3 ML; Start 09/27/16 at 06:00 Diagnostic Test (Pha) (Accu-Chek) 1 ea 02 XX Last administered on 10/02/16 02: 12; Admin Dose 1 EA; Start 09/28/16 at 02:00 Miscellaneous Information 1 ea NOTE XX ; Start 09/27/16 at 07:30 Glucose (Glutose) 15 gm Q15M PRN PO DECREASED GLUCOSE; Start 09/27/16 at 07:30 Glucose (Glutose) 22.5 gm Q15M PRN PO DECREASED GLUCOSE; Start 09/27/16 at 07: 30 Dextrose (D50w Syringe) 25 ml Q15M PRN IV DECREASED GLUCOSE; Start 09/27/16 at 07:30 Dextrose (D50w Syringe) 50 ml Q15M PRN IV DECREASED GLUCOSE; Start 09/27/16 at 07:30 Glucagon (Glucagen) 1 mg Q15M PRN IM DECREASED GLUCOSE; Start 09/27/16 at 07:30 Glucose (Glutose) 15 gm Q15M PRN BUCCAL DECREASED GLUCOSE; Start 09/27/16 at 07 :30 Acetaminophen/ Hydrocodone Bitart ([place] (10325)) 1.5 tab Q8H PO Last administered on 10/04/16 22:58; Admin Dose 1.5 TAB; Start 09/27/16 at 15:30 Clonidine (Catapres) 0.1 mg Q6H PRN PO SBP>170; Start 09/27/16 at 12:00 Morphine Sulfate (morphine) 2 mg Q2H PRN IV PAIN Last administered on 19:55; Admin Dose 2 MG; Start 09/27/16 at 22:00 Mupirocin (Bactroban) 1 applic BID TOP Last administered on 10/04/16 21:18; Admin Dose 1 APPLIC; Start 09/28/16 at 21:00 Atorvastatin Calcium (Lipitor) 40 mg DAILY@21 PO Last administered on 21:17; Admin Dose 40 MG; Start 09/29/16 at 21:00 Levofloxacin (Levaquin) 250 mg Q48H PO Last administered on 10/04/16 15:00; Admin Dose 250 MG; Start 09/30/16 at 15:00 Aspirin (Aspirin) 81 mg DAILY PO Last administered on 10/05/16 08:59; Admin Dose 81 MG; Start 10/05/16 at 09:00 Clopidogrel Bisulfate 75 mg 75 mg DAILY PO Last administered on 10/05/16 09:01 ; Admin Dose 75 MG; Start 10/05/16 at 09:00 Vancomycin HCl (Vancocin) 250 ml @ 125 mls/hr Q96H IVPB ; Start 10/05/16 at 18: 00 BRANDI ERICKSON DO Oct 05, 2016 09:13
[2016-10-05] MEDS: morphine 2 MG INJ IV PRN (12:05)
--- NOTE | 2016-10-05 13:31 | CONS ---
Date/Time of Note Date/Time of Note DATE: 10/05/16 TIME: 13:29 Assessment/Plan Assessment/Plan Chief Complaint/Hosp Course IMP: 1.Cardiomyopathy with low EF 2.HTN-well controlled 3.HL 4.cad 5. Pad s/p peripheral bypass 6. ESRD on HD 7. Non-healing LE wound s/p R ext illiac sttenting and now s/p PHTHALIC ACID PURIFIER to graft now patent 8. PPM 9. Anemia 10. Hyponatremia 11.Hypothyroid Recc: -Tele -serial ecg's -Continue BB/hydralazine -Continue statin -HD for volume removal -Continue abx's -Local wound care -Pain control -Possible further debridement Problems: Consultation Date/Type/Reason Admit Date/Time Sep 26, 2016 at 16:53 Initial Consult Date 09/27/2016 Type of Consultation: cardiology Reason for Consultation cardiomyopathy/CHF Referring Provider: BRANDI ERICKSON DO Exam/Review of Systems Vital Signs Vitals Vital Signs Date Time Temp Pulse Resp B/P Pulse Ox O2 Delivery O2 Flow Rate FiO2 10/05/16 12:11 76 10/05/16 11:45 98.4 16 116/55 91 10/04/16 22:00 Room Air Intake and Output 10/04/16 10/04/16 10/05/16 15:00 23:00 07:00 Intake Total 800 ml 240 ml 100 ml Output Total 3000 ml Balance -2200 ml 240 ml 100 ml Exam Review of Systems: CONSTITUTIONAL: No fevers, chills. PULMONARY: No sob CARDIOVASCULAR: No chest pain/palpitations GASTROINTESTINAL: No nausea/vomiting. GENITOURINARY: No hematuria/dysuria. MUSCULOSKELETAL: pain inleg PSYCHIATRIC: The patient denies depression. NEUROLOGIC: No weakness Constitutional: alert Psych: no complaints Head: normocephalic ENMT: mucosa pink and moist Neck: supple Respiratory: clear to auscultation (8-9 cm water) Cardiovascular: regular rate and rhythm Gastrointestinal: non-tender, soft Musculoskeletal: muscle weakness (generalized) Extremities: other (Covered by dressing) Neurological: lethargic Results Result Diagram: 10/05/16 0506 10/05/16 0506 Results 24 hrs Laboratory Tests Test 10/04/16 17:12 10/04/16 21:12 10/05/16 05:06 10/05/16 05:07 Bedside Glucose 126 136 White Blood Count 7.9 Red Blood Count 3.55 L Hemoglobin 10.3 L Hematocrit 31.4 L Mean Corpuscular Volume 88.5 Mean Corpuscular Hemoglobin 29.0 Mean Corpuscular Hemoglobin Concent 32.8 Red Cell Distribution Width 18.3 H Platelet Count 97 L Mean Platelet Volume 10.0 Neutrophils % 74.9 Lymphocytes % 16.1 Monocytes % 7.6 Eosinophils % 0.4 Basophils % 0.4 Nucleated Red Blood Cells % 0.0 Neutrophils # 5.9 Lymphocytes # 1.3 Monocytes # 0.6 Eosinophils # 0.0 Basophils # 0.0 Nucleated Red Blood Cells # 0.0 Sodium Level 130 L Potassium Level 4.2 Chloride Level 91 L Carbon Dioxide Level 26 Anion Gap 17 H Blood Urea Nitrogen 24 #H Creatinine 2.87 H Glucose Level 95 Calcium Level 7.7 L Phosphorus Level 4.8 Magnesium Level 1.9 Random Vancomycin Level 14.5 Test 10/05/16 08:55 10/05/16 12:03 Bedside Glucose 106 122 Medications Medications Current Medications Ferrous Sulfate (Ferrous Sulfate (Ec)) 325 mg DAILY PO Last administered on 08:59; Admin Dose 325 MG; Start 09/27/16 at 09:00 Hydralazine HCl (Apresoline) 10 mg BID PO Last administered on 10/05/16 09:00 ; Admin Dose 10 MG; Start 09/27/16 at 09:00 Metoprolol Succinate (Toprol Xl) 25 mg DAILY PO Last administered on 10/05/16 09:01; Admin Dose 25 MG; Start 09/27/16 at 09:00 Multivit/Ca Carb/ B Cmplx/FA/Prenat (Billie-Roge) 1 tab DAILY PO Last administered on 10/05/16 08:59; Admin Dose 1 TAB; Start 09/27/16 at 09:00 Polyethylene Glycol (Miralax) 17 gm DAILY PO Last administered on 10/05/16 09: 01; Admin Dose 17 GM; Start 09/27/16 at 09:00 Pantoprazole (Protonix Tab) 40 mg DAILY@06 PO Last administered on 10/05/16 05 :50; Admin Dose 40 MG; Start 09/27/16 at 06:00 Zolpidem Tartrate (Ambien) 5 mg HS PRN PO INSOMNIA; Start 09/27/16 at 01:00 Acetaminophen (Tylenol Tab) 650 mg Q6H PRN PO PAIN AND OR ELEVATED TEMP; Start 09/27/16 at 01:00 Ondansetron HCl (Zofran Inj) 4 mg Q6H PRN IV NAUSEA AND/OR VOMITING Last administered on 10/01/16 15:02; Admin Dose 4 MG; Start 09/27/16 at 01:00 IV Flush (NS 10 ml) 3 ml Q8 IV Last administered on 10/05/16 05:50; Admin Dose 3 ML; Start 09/27/16 at 06:00 Diagnostic Test (Pha) (Accu-Chek) 1 ea 02 XX Last administered on 10/02/16 02: 12; Admin Dose 1 EA; Start 09/28/16 at 02:00 Miscellaneous Information 1 ea NOTE XX ; Start 09/27/16 at 07:30 Glucose (Glutose) 15 gm Q15M PRN PO DECREASED GLUCOSE; Start 09/27/16 at 07:30 Glucose (Glutose) 22.5 gm Q15M PRN PO DECREASED GLUCOSE; Start 09/27/16 at 07: 30 Dextrose (D50w Syringe) 25 ml Q15M PRN IV DECREASED GLUCOSE; Start 09/27/16 at 07:30 Dextrose (D50w Syringe) 50 ml Q15M PRN IV DECREASED GLUCOSE; Start 09/27/16 at 07:30 Glucagon (Glucagen) 1 mg Q15M PRN IM DECREASED GLUCOSE; Start 09/27/16 at 07:30 Glucose (Glutose) 15 gm Q15M PRN BUCCAL DECREASED GLUCOSE; Start 09/27/16 at 07 :30 Acetaminophen/ Hydrocodone Bitart ([place] (10/325)) 1.5 tab Q8H PO Last administered on 10/04/16 22:58; Admin Dose 1.5 TAB; Start 09/27/16 at 15:30 Clonidine (Catapres) 0.1 mg Q6H PRN PO SBP>170; Start 09/27/16 at 12:00 Morphine Sulfate (morphine) 2 mg Q2H PRN IV PAIN Last administered on 12:05; Admin Dose 2 MG; Start 09/27/16 at 22:00 Mupirocin (Bactroban) 1 applic BID TOP Last administered on 10/05/16 09:00; Admin Dose 1 APPLIC; Start 09/28/16 at 21:00 Atorvastatin Calcium (Lipitor) 40 mg DAILY@21 PO Last administered on 21:17; Admin Dose 40 MG; Start 09/29/16 at 21:00 Levofloxacin (Levaquin) 250 mg Q48H PO Last administered on 10/04/16 15:00; Admin Dose 250 MG; Start 09/30/16 at 15:00 Aspirin (Aspirin) 81 mg DAILY PO Last administered on 10/05/16 08:59; Admin Dose 81 MG; Start 10/05/16 at 09:00 Clopidogrel Bisulfate 75 mg 75 mg DAILY PO Last administered on 10/05/16 09:01 ; Admin Dose 75 MG; Start 10/05/16 at 09:00 Vancomycin HCl (Vancocin) 250 ml @ 125 mls/hr Q96H IVPB ; Start 10/05/16 at 18: 00 YI RODRIGUEZ Oct 05, 2016 13:31
--- NOTE | 2016-10-05 18:38 | CONS ---
Date/Time of Note Date/Time of Note DATE: 10/05/16 TIME: 18:35 Assessment/Plan Assessment/Plan Chief Complaint/Hosp Course ID PROGRESS NOTE TOTAL ABX DAY # => Levaquin +Vanco IV post HD 24H INTERVAL SUMMARY * (+)MRSA Nares screen repeat * Status post angiogram and iliac artery angioplasty and stent placement, SP angioplasty Right saphenous vein graft * No fevers, VSS PHYSICAL EXAMINATION: GENERAL: 75 yo F HEENT: Unremarkable NECK: Supple, trachea midline. CHEST: Rise symmetrical without dyspnea HEART: RRR ABDOMEN: Soft, NT EXTREMITIES: Warm, doppler pulse, DSG C/.D/I ID ASSESSMENT: 75 yo F w/ 1. Sepsis with staph bacteremia==> Staph "CoNS" 2. 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 Severe peripheral arterial disease, s/p angiogram and iliac artery angioplasty and stent placement 09/29/16 * now s/p BUSINESS STRATEGY MANAGER to graft now patent -> started on Plavix 4. End-stage renal disease, hemodialysis dependent * Left upper extremity AV fistula 5. DM w/complications of DM polyneuropathies: Nephro, Peripheral, Autonomic 6. CAD, w/Hx cardiomyopathy, hx of CABG, hx of non-ST elevation myocardial infarction type 2 7. Anemia of chronic disease, Epogen (+)MRSA Nares-> Bactroban CURRENT ABX: Levaquin +Vanco IV post HD ID RECOMMENDATIONS: 1. Continue current ABX 2. Follow vascular, APC recs . Problems: Consultation Date/Type/Reason Admit Date/Time Sep 26, 2016 at 16:53 Type of Consultation: ID Referring Provider: BRANDI ERICKSON DO Exam/Review of Systems Vital Signs Vitals Vital Signs Date Time Temp Pulse Resp B/P Pulse Ox O2 Delivery O2 Flow Rate FiO2 10/05/16 16:13 73 10/05/16 15:25 98.8 16 102/55 97 10/04/16 22:00 Room Air Intake and Output 10/04/16 10/04/16 10/05/16 15:00 23:00 07:00 Intake Total 800 ml 240 ml 100 ml Output Total 3000 ml Balance -2200 ml 240 ml 100 ml Results Result Diagram: 10/05/16 0506 10/05/16 0506 Results 24 hrs Laboratory Tests Test 10/04/16 21:12 10/05/16 05:06 10/05/16 05:07 10/05/16 08:55 Bedside Glucose 136 106 White Blood Count 7.9 Red Blood Count 3.55 L Hemoglobin 10.3 L Hematocrit 31.4 L Mean Corpuscular Volume 88.5 Mean Corpuscular Hemoglobin 29.0 Mean Corpuscular Hemoglobin Concent 32.8 Red Cell Distribution Width 18.3 H Platelet Count 97 L Mean Platelet Volume 10.0 Neutrophils % 74.9 Lymphocytes % 16.1 Monocytes % 7.6 Eosinophils % 0.4 Basophils % 0.4 Nucleated Red Blood Cells % 0.0 Neutrophils # 5.9 Lymphocytes # 1.3 Monocytes # 0.6 Eosinophils # 0.0 Basophils # 0.0 Nucleated Red Blood Cells # 0.0 Sodium Level 130 L Potassium Level 4.2 Chloride Level 91 L Carbon Dioxide Level 26 Anion Gap 17 H Blood Urea Nitrogen 24 #H Creatinine 2.87 H Glucose Level 95 Calcium Level 7.7 L Phosphorus Level 4.8 Magnesium Level 1.9 Random Vancomycin Level 14.5 Test 10/05/16 12:03 10/05/16 18:32 Bedside Glucose 122 147 Medications Medications Current Medications Ferrous Sulfate (Ferrous Sulfate (Ec)) 325 mg DAILY PO Last administered on 08:59; Admin Dose 325 MG; Start 09/27/16 at 09:00 Hydralazine HCl (Apresoline) 10 mg BID PO Last administered on 10/05/16 09:00 ; Admin Dose 10 MG; Start 09/27/16 at 09:00 Metoprolol Succinate (Toprol Xl) 25 mg DAILY PO Last administered on 10/05/16 09:01; Admin Dose 25 MG; Start 09/27/16 at 09:00 Multivit/Ca Carb/ B Cmplx/FA/Prenat (Billie-Roge) 1 tab DAILY PO Last administered on 10/05/16 08:59; Admin Dose 1 TAB; Start 09/27/16 at 09:00 Polyethylene Glycol (Miralax) 17 gm DAILY PO Last administered on 10/05/16 09: 01; Admin Dose 17 GM; Start 09/27/16 at 09:00 Pantoprazole (Protonix Tab) 40 mg DAILY@06 PO Last administered on 10/05/16 05 :50; Admin Dose 40 MG; Start 09/27/16 at 06:00 Zolpidem Tartrate (Ambien) 5 mg HS PRN PO INSOMNIA; Start 09/27/16 at 01:00 Acetaminophen (Tylenol Tab) 650 mg Q6H PRN PO PAIN AND OR ELEVATED TEMP; Start 09/27/16 at 01:00 Ondansetron HCl (Zofran Inj) 4 mg Q6H PRN IV NAUSEA AND/OR VOMITING Last administered on 10/01/16 15:02; Admin Dose 4 MG; Start 09/27/16 at 01:00 IV Flush (NS 10 ml) 3 ml Q8 IV Last administered on 10/05/16 14:00; Admin Dose 3 ML; Start 09/27/16 at 06:00 Diagnostic Test (Pha) (Accu-Chek) 1 ea 02 XX Last administered on 10/02/16 02: 12; Admin Dose 1 EA; Start 09/28/16 at 02:00 Miscellaneous Information 1 ea NOTE XX ; Start 09/27/16 at 07:30 Glucose (Glutose) 15 gm Q15M PRN PO DECREASED GLUCOSE; Start 09/27/16 at 07:30 Glucose (Glutose) 22.5 gm Q15M PRN PO DECREASED GLUCOSE; Start 09/27/16 at 07: 30 Dextrose (D50w Syringe) 25 ml Q15M PRN IV DECREASED GLUCOSE; Start 09/27/16 at 07:30 Dextrose (D50w Syringe) 50 ml Q15M PRN IV DECREASED GLUCOSE; Start 09/27/16 at 07:30 Glucagon (Glucagen) 1 mg Q15M PRN IM DECREASED GLUCOSE; Start 09/27/16 at 07:30 Glucose (Glutose) 15 gm Q15M PRN BUCCAL DECREASED GLUCOSE; Start 09/27/16 at 07 :30 Acetaminophen/ Hydrocodone Bitart ([place] (10/325)) 1.5 tab Q8H PO Last administered on 10/05/16 15:30; Admin Dose 1.5 TAB; Start 09/27/16 at 15:30 Clonidine (Catapres) 0.1 mg Q6H PRN PO SBP>170; Start 09/27/16 at 12:00 Morphine Sulfate (morphine) 2 mg Q2H PRN IV PAIN Last administered on 12:05; Admin Dose 2 MG; Start 09/27/16 at 22:00 Mupirocin (Bactroban) 1 applic BID TOP Last administered on 10/05/16 09:00; Admin Dose 1 APPLIC; Start 09/28/16 at 21:00 Atorvastatin Calcium (Lipitor) 40 mg DAILY@21 PO Last administered on 21:17; Admin Dose 40 MG; Start 09/29/16 at 21:00 Levofloxacin (Levaquin) 250 mg Q48H PO Last administered on 10/04/16 15:00; Admin Dose 250 MG; Start 09/30/16 at 15:00 Aspirin (Aspirin) 81 mg DAILY PO Last administered on 10/05/16 08:59; Admin Dose 81 MG; Start 10/05/16 at 09:00 Clopidogrel Bisulfate 75 mg 75 mg DAILY PO Last administered on 10/05/16 09:01 ; Admin Dose 75 MG; Start 10/05/16 at 09:00 Vancomycin HCl (Vancocin) 250 ml @ 125 mls/hr Q96H IVPB ; Start 10/05/16 at 18: 00 QUINN SINGH MANAGER MOLECULAR Oct 05, 2016 18:38
[2016-10-05] MEDS: VANCOMYCIN 1 GM in NS 250 ML IVPB SCH (18:39)
--- NOTE | 2016-10-05 19:30 | CONS ---
Date/Time of Note Date/Time of Note DATE: 10/05/16 TIME: 19:30 Assessment/Plan Assessment/Plan Chief Complaint/Hosp Course Anemia complex multifactorial cont to monitor blood count cosely observe for bleeding and hemolysis transfuse as needed THROMBOCYTOPENIA INTERMITTENT FLUCTUATING MONITOR CLOSELY SL WORSE POSTOP NO NEEDS IN TRANSFUSION Cardiomyopathy with low EF HTN HL cad Pad s/p peripheral bypass ESRD on HD Non-healing LE wound s/p R ext illiac sttenting and now s/p CONTACT ACID PLANT OPERATOR to graft now patent PPM Hyponatremia Hypothyroid Problems: Consultation Date/Type/Reason Admit Date/Time Sep 26, 2016 at 16:53 Type of Consultation: hemeon Referring Provider: BRANDI ERICKSON DO 24 HR Interval Summary Free Text/Dictation ALL NOTED POST OP Exam/Review of Systems Vital Signs Vitals Vital Signs Date Time Temp Pulse Resp B/P Pulse Ox O2 Delivery O2 Flow Rate FiO2 10/05/16 16:13 73 10/05/16 15:25 98.8 16 102/55 97 10/04/16 22:00 Room Air Intake and Output 10/04/16 10/04/16 10/05/16 15:00 23:00 07:00 Intake Total 800 ml 240 ml 100 ml Output Total 3000 ml Balance -2200 ml 240 ml 100 ml Exam CONSTITUTIONAL: No fevers, chills. PULMONARY: No sob CARDIOVASCULAR: No chest pain/palpitations GASTROINTESTINAL: No nausea/vomiting. GENITOURINARY: No hematuria/dysuria. MUSCULOSKELETAL: foot covered by dressing PSYCHIATRIC: The patient denies depression. NEUROLOGIC: No weakness Constitutional: alert Psych: no complaints Head: normocephalic ENMT: mucosa pink and moist Neck: jvd (9 cm water), supple Respiratory: diminished breath sounds (at bases/B) Cardiovascular: regular rate and rhythm Gastrointestinal: non-tender, soft Musculoskeletal: muscle tone (normal) Extremities: other (dopplerable DP pulses bilateral) Results Result Diagram: 10/05/16 0506 10/05/16 0506 Results 24 hrs Laboratory Tests Test 10/04/16 21:12 10/05/16 05:06 10/05/16 05:07 10/05/16 08:55 Bedside Glucose 136 106 White Blood Count 7.9 Red Blood Count 3.55 L Hemoglobin 10.3 L Hematocrit 31.4 L Mean Corpuscular Volume 88.5 Mean Corpuscular Hemoglobin 29.0 Mean Corpuscular Hemoglobin Concent 32.8 Red Cell Distribution Width 18.3 H Platelet Count 97 L Mean Platelet Volume 10.0 Neutrophils % 74.9 Lymphocytes % 16.1 Monocytes % 7.6 Eosinophils % 0.4 Basophils % 0.4 Nucleated Red Blood Cells % 0.0 Neutrophils # 5.9 Lymphocytes # 1.3 Monocytes # 0.6 Eosinophils # 0.0 Basophils # 0.0 Nucleated Red Blood Cells # 0.0 Sodium Level 130 L Potassium Level 4.2 Chloride Level 91 L Carbon Dioxide Level 26 Anion Gap 17 H Blood Urea Nitrogen 24 #H Creatinine 2.87 H Glucose Level 95 Calcium Level 7.7 L Phosphorus Level 4.8 Magnesium Level 1.9 Random Vancomycin Level 14.5 Test 10/05/16 12:03 10/05/16 18:32 Bedside Glucose 122 147 Medications Medications Current Medications Ferrous Sulfate (Ferrous Sulfate (Ec)) 325 mg DAILY PO Last administered on 08:59; Admin Dose 325 MG; Start 09/27/16 at 09:00 Hydralazine HCl (Apresoline) 10 mg BID PO Last administered on 10/05/16 09:00 ; Admin Dose 10 MG; Start 09/27/16 at 09:00 Metoprolol Succinate (Toprol Xl) 25 mg DAILY PO Last administered on 10/05/16 09:01; Admin Dose 25 MG; Start 09/27/16 at 09:00 Multivit/Ca Carb/ B Cmplx/FA/Prenat (Billie-Roge) 1 tab DAILY PO Last administered on 10/05/16 08:59; Admin Dose 1 TAB; Start 09/27/16 at 09:00 Polyethylene Glycol (Miralax) 17 gm DAILY PO Last administered on 10/05/16 09: 01; Admin Dose 17 GM; Start 09/27/16 at 09:00 Pantoprazole (Protonix Tab) 40 mg DAILY@06 PO Last administered on 10/05/16 05 :50; Admin Dose 40 MG; Start 09/27/16 at 06:00 Zolpidem Tartrate (Ambien) 5 mg HS PRN PO INSOMNIA; Start 09/27/16 at 01:00 Acetaminophen (Tylenol Tab) 650 mg Q6H PRN PO PAIN AND OR ELEVATED TEMP; Start 09/27/16 at 01:00 Ondansetron HCl (Zofran Inj) 4 mg Q6H PRN IV NAUSEA AND/OR VOMITING Last administered on 10/01/16 15:02; Admin Dose 4 MG; Start 09/27/16 at 01:00 IV Flush (NS 10 ml) 3 ml Q8 IV Last administered on 10/05/16 14:00; Admin Dose 3 ML; Start 09/27/16 at 06:00 Diagnostic Test (Pha) (Accu-Chek) 1 ea 02 XX Last administered on 10/02/16 02: 12; Admin Dose 1 EA; Start 09/28/16 at 02:00 Miscellaneous Information 1 ea NOTE XX ; Start 09/27/16 at 07:30 Glucose (Glutose) 15 gm Q15M PRN PO DECREASED GLUCOSE; Start 09/27/16 at 07:30 Glucose (Glutose) 22.5 gm Q15M PRN PO DECREASED GLUCOSE; Start 09/27/16 at 07: 30 Dextrose (D50w Syringe) 25 ml Q15M PRN IV DECREASED GLUCOSE; Start 09/27/16 at 07:30 Dextrose (D50w Syringe) 50 ml Q15M PRN IV DECREASED GLUCOSE; Start 09/27/16 at 07:30 Glucagon (Glucagen) 1 mg Q15M PRN IM DECREASED GLUCOSE; Start 09/27/16 at 07:30 Glucose (Glutose) 15 gm Q15M PRN BUCCAL DECREASED GLUCOSE; Start 09/27/16 at 07 :30 Acetaminophen/ Hydrocodone Bitart ([place] (10/325)) 1.5 tab Q8H PO Last administered on 10/05/16 15:30; Admin Dose 1.5 TAB; Start 09/27/16 at 15:30 Clonidine (Catapres) 0.1 mg Q6H PRN PO SBP>170; Start 09/27/16 at 12:00 Morphine Sulfate (morphine) 2 mg Q2H PRN IV PAIN Last administered on 12:05; Admin Dose 2 MG; Start 09/27/16 at 22:00 Mupirocin (Bactroban) 1 applic BID TOP Last administered on 10/05/16 09:00; Admin Dose 1 APPLIC; Start 09/28/16 at 21:00 Atorvastatin Calcium (Lipitor) 40 mg DAILY@21 PO Last administered on 21:17; Admin Dose 40 MG; Start 09/29/16 at 21:00 Levofloxacin (Levaquin) 250 mg Q48H PO Last administered on 10/04/16 15:00; Admin Dose 250 MG; Start 09/30/16 at 15:00 Aspirin (Aspirin) 81 mg DAILY PO Last administered on 10/05/16 08:59; Admin Dose 81 MG; Start 10/05/16 at 09:00 Clopidogrel Bisulfate 75 mg 75 mg DAILY PO Last administered on 10/05/16 09:01 ; Admin Dose 75 MG; Start 10/05/16 at 09:00 Vancomycin HCl (Vancocin) 250 ml @ 125 mls/hr Q96H IVPB Last administered on 18:39; Admin Dose 125 MLS/HR; Start 10/05/16 at 18:00 FABY HORN MD Oct 05, 2016 19:30
--- NOTE | 2016-10-05 20:21 | PN ---
Date/Time of Note Date/Time of Note DATE: 10/05/16 TIME: 20:21 Assessment/Plan Lines/Catheters IV Catheter Type (from Nrsg): Permacath Tolbert in Place (from Nrsg): No Assessment/Plan Chief Complaint/Hosp Course Status post angiogram and iliac artery angioplasty and stent placement SP angioplasty Right saphenous vein graft Patient with strong Doppler signals over the dorsalis pedis artery We will continue Plavix Patient will need left lower extremity intervention after she has recovered from the current procedure Discussed with Dr. Arce His cussed with the daughter Problems: Subjective 24 Hr Interval Summary Constitutional: improved Pain Control: mild Exam/Review of Systems Vital Signs Vitals Vital Signs Date Time Temp Pulse Resp B/P Pulse Ox O2 Delivery O2 Flow Rate FiO2 10/05/16 19:42 98.0 70 19 114/53 100 10/04/16 22:00 Room Air Intake and Output 10/04/16 10/04/16 10/05/16 15:00 23:00 07:00 Intake Total 800 ml 240 ml 100 ml Output Total 3000 ml Balance -2200 ml 240 ml 100 ml Exam ENMT: mucosa pink and moist, nl external ears & nose, nl lips & teeth, nl nasal mucosa & septum Neck: non-tender, supple Respiratory: clear to auscultation, normal air movement Cardiovascular: nl pulses, regular rate and rhythm Gastrointestinal: nl liver, spleen, non-tender, soft Results Result Diagram: 10/05/16 0506 10/05/16 0506 BALDOMERO PALOMO MD Oct 05, 2016 20:21
[2016-10-05] MEDS: ATORVASTATIN 40 MG TAB PO SCH (20:59)
[2016-10-06] VITALS (18 sets, daily range): BP systolic 91–123; BP diastolic 42–58; PULSE 65–91; RESP 16–18
[2016-10-06] MEDS: ACCU-CHEK XX SCH (02:00)
[2016-10-06] MEDS: PANTOPRAZOLE (EC) 40 MG TAB PO SCH (06:11)
[2016-10-06] MEDS: LEVOTHYROXINE 88 MCG TAB PO SCH (06:12)
[2016-10-06 06:25] LABS: BASOPHILS % 0.4 % (0.0-2.0); EOSINOPHILS # 0.1 10^3/ul (0.0-0.5); EOSINOPHILS % 0.6 % (0.0-7.0); HEMATOCRIT 32.4 % (37.0-47.0); HEMOGLOBIN 10.6 g/dl (12.0-16.0); LYMPHOCYTES # 1.2 10^3/ul (0.8-2.9); LYMPHOCYTES % 14.6 % (15.0-51.0); MEAN CORPUSCULAR HEMOGLOBIN 29.4 pg (29.0-33.0); MEAN CORPUSCULAR HGB CONC 32.7 g/dl (32.0-37.0); MEAN PLATELET VOLUME 9.8 fl (7.4-10.4); MONOCYTE # 0.6 10^3/ul (0.3-0.9); MONOCYTES % 7.2 % (0.0-11.0); NEUTROPHIL # 6.1 10^3/ul (1.6-7.5); NEUTROPHILS % 76.6 % (39.0-77.0); PLATELET COUNT 107 10^3/UL (140-415); RED CELL DISTRIBUTION WIDTH 18.2 % (11.5-14.5)
--- NOTE | 2016-10-06 06:56 | PN ---
DATE: 10/03/2016 SUBJECTIVE DATA: The patient is stable. No acute events overnight. The patient is pending CT angiogram today. OBJECTIVE DATA: VITAL SIGNS: Blood pressure 119/58, respirations 20, pulse 79, temperature 98.1. HEENT: Head is normocephalic. NECK: Supple. HEART: Regular rate. LUNGS: Diminished breath sounds at the base. ABDOMEN: Soft, nontender to palpation. No rebound or guarding. EXTREMITIES: Negative for clubbing or cyanosis. No edema. DERMATOLOGIC: No rashes. MUSCULOSKELETAL: The patient has noted right gangrenous heel. NEUROLOGIC: No change in exam. MEDICATIONS: Reviewed. LABORATORY AND DIAGNOSTIC DATA: Sodium 131, potassium 4.4, chloride 93, BUN 31, creatinine 3.02, phosphorus 5, calcium 7.9. White count 10.3, hemoglobin 10.5, hematocrit 32.7, platelet count 93,000. ASSESSMENT AND PLAN: 1. Right lower extremity gangrene. The patient is status post CT angio with stenting of the iliac artery. Expect another angiogram today. Continue current antibiotic therapy. Continue pain control. 2. End-stage renal disease. Plan for hemodialysis tomorrow. 3. Coronary artery disease. History of cardiomyopathy. Continue medical management. 4. Anemia. Continue to monitor H and H levels. Continue Epogen. 5. Diabetes. Continue current insulin regimen. 6. Hypertension. Continue current blood pressure regimen. 7. Hypothyroidism. Continue Synthroid. 8. Status post right hip fracture. 9. Mineral bone disorder. Continue to monitor calcium and phosphorus levels. Continue phos binders. Dictated By: Ihsan Johns DO /meenakshi/ec /Document#: [id number]
[2016-10-06 07:22] LABS: CALCIUM 7.7 mg/dl (8.4-10.2); CREATININE 3.44 mg/dl (0.44-1.00); MAGNESIUM 1.8 mg/dl (1.7-2.5); PHOSPHORUS 5.4 mg/dl (2.5-4.9); POTASSIUM 4.5 mmol/L (3.5-5.1)
--- NOTE | 2016-10-06 07:46 | PN ---
DATE: 10/01/2016 SUBJECTIVE DATA: The patient continues to have lower extremity pain controlled with pain medication. The patient is pending an angiogram next week. No other events noted. OBJECTIVE DATA: VITAL SIGNS: Blood pressure 119/57, respirations 20, pulse 82, temperature 97 degrees. HEENT: Head is normocephalic. NECK: Supple. CARDIAC: Regular rate. RESPIRATORY: Diminished breath sounds at the bases. ABDOMEN: Soft, nontender to palpation. No rebound or guarding. EXTREMITIES: Negative for clubbing, cyanosis. No edema. Noted gangrene of the right lower extremity with surrounding erythema. No change. SKIN: No rashes. MUSCULOSKELETAL: No joint effusion. NEUROLOGIC: No change in exam. The patient's medications were reviewed. LABORATORY AND DIAGNOSTIC DATA: Laboratory data has been reviewed. ASSESSMENT AND PLAN: 1. Right lower extremity gangrene. The patient is status post angioplasty of the iliac artery and stent placement. The patient is pending further intervention next week by . At this point, continue current treatment plan, continue wound care, continue pain control. 2. End-stage renal disease. The patient is on dialysis Sunday, Sunday, Sunday. Plan for hemodialysis tomorrow. 3. Coronary artery disease with history of cardiomyopathy. The patient is currently stable. Continue medical management. Follow up with Cardiology. 4. Anemia. Monitor hemoglobin and hematocrit levels. 5. Diabetes. Continue current insulin regimen. 6. Hypertension. Continue current blood pressure regimen. 7. Hypothyroidism. Continue Synthroid. 8. Status post right hip fracture. 9. Bacteremia, Staph. The patient is on antibiotic therapy, will continue. Dictated By: Ihsan Johns DO /meenakshi/spencer /Document#: [id number]
[2016-10-06] MEDS: INSULIN ASPART [NOVOLOG] 3 ML PEN SC SCH ×4 (07:55→21:00)
[2016-10-06] MEDS: MULTIVIT/CA CARB/B CMPLX/FA TAB PO SCH (08:44)
[2016-10-06] MEDS: CLOPIDOGREL 75 MG TAB PO SCH (08:44)
[2016-10-06] MEDS: SEVELAMER 800 MG TAB PO SCH ×3 (08:44→18:12)
[2016-10-06] MEDS: FERROUS SULFATE (EC) 325 MG TAB PO SCH (08:44)
[2016-10-06] MEDS: METOPROLOL (XL) 25 MG TAB PO SCH (08:44)
[2016-10-06] MEDS: ASPIRIN 81 MG TAB PO SCH (08:44)
[2016-10-06] MEDS: MUPIROCIN 2% 22 GM OINT TOP SCH ×2 (08:45→21:01)
[2016-10-06] MEDS: POLYETHYLENE GLYCOL 17 GM PACKET PO SCH (08:45)
[2016-10-06] MEDS: ONDANSETRON 4 MG INJ IV PRN (08:59)
[2016-10-06] MEDS: HYDROCODONE/APAP (10/325) TAB PO SCH ×4 (10:21→23:30)
--- NOTE | 2016-10-06 12:06 | CONS ---
DATE OF ADMISSION: 09/26/2016 DATE OF CONSULTATION: 09/27/2016 REASON FOR CONSULTATION: Cardiomyopathy, decreased left ventricular ejection fraction, preoperative congestive heart failure. REFERRING PHYSICIAN: Dr. Johns, nephrology service. HISTORY OF PRESENT ILLNESS: Ms. Pete is a 75-year-old female well known to myself as a primary office patient, multiple prior hospital admissions with history of cardiomyopathy with decreased left ventricular ejection fraction, last time approximately 30 percent to 35 percent by echo, July 2016, with a negative stress test for ischemia, February 2016, permanent pacemaker implantation, coronary artery disease, status post coronary artery bypass graft surgery, peripheral arterial disease, status post lower extremity bypass surgery, nonhealing lower extremity ulcerations, diabetes mellitus, end-stage renal disease on hemodialysis, prior hip fracture, status post open reduction, internal fixation, July 2016, who presents with right lower extremity pain, nonhealing ulceration. Upon arrival, temperature of 97.4, blood pressure 101/55, pulse 77, respiratory rate 18, satting 100 pct. Patient's labs: White blood cell count 6.4, hemoglobin 11.2, platelet count of 97. Sodium of 130, potassium 4.7, creatinine of 3.28, BUN of 48, glucose 100. TSH of 4.98. AST 32, ALT 31. Patient has no imaging studies for my review at this time. Patient has no electrocardiogram for my review at this time. Patient denies chest pain, shortness of breath at this time. PAST MEDICAL HISTORY: As above in HPI. MEDICATION: Currently in the hospital, Lipitor 80 mg at bedtime, Wilmore 1.5 tabs/325 q.8, hydralazine 10 mg p.o. b.i.d., Toprol-XL 25 mg daily, MiraLax, Renvela, insulin sliding scale, Synthroid 88 mcg daily, Protonix 40 mg daily, Ambien p.r.n., Tylenol p.r.n. ALLERGIES: NO KNOWN DRUG ALLERGIES. SOCIAL HISTORY: No tobacco, EtOH or illicit drug use. FAMILY HISTORY: Negative for sudden cardiac or early CAD. REVIEW OF SYSTEMS: As above in HPI. CONSTITUTIONAL: No fevers, chills. RESPIRATORY: No current shortness of breath. CARDIOVASCULAR: No current chest pain. History of cardiomyopathy. GASTROINTESTINAL: No vomiting. GENITOURINARY: No hematuria. End-stage renal disease. PSYCHIATRIC: No documented psych history. NEUROLOGIC: No documented CVA. ENDOCRINE: Diabetes mellitus. MUSCULOSKELETAL: Nonhealing ulcerations, lower extremity. Skin breakdown. PHYSICAL EXAMINATION: VITAL SIGNS: Temperature 97.5, blood pressure 107/56, pulse 74, respiratory rate 16, satting 97 percent. GENERAL APPEARANCE: The patient is alert, awake, complaining of right lower extremity leg pain. NECK: JVP approximately 8-9 cm of water. LUNGS: Fair air movement throughout. CARDIAC: Regular rate and rhythm. Normal S1, S2. 1/6 systolic murmur. Nondisplaced PMI. ABDOMEN: Positive bowel sounds. Soft. EXTREMITIES: No pitting edema. Difficult to palpate distal pulse bilaterally posterior tibial and dorsalis pedis in the right lower extremity. Both lower extremities covered by dressing with skin breakdown through them. LABORATORY: Most recently from today. Sodium 130, potassium 4.7, creatinine 3.28, BUN of 48. AST 32, ALT 31. TSH of 4.98. White blood cell count is 6.4, hemoglobin 11.2, platelet count of 97. IMAGING STUDIES: No imaging studies for review at this time. ELECTROCARDIOGRAM: No electrocardiograms are reviewed at this time. IMPRESSION: 1. Cardiomyopathy with decreased left ventricular ejection fraction, status post congestive heart failure. 2. Hypertension, under reasonable control. 3. Dyslipidemia. 4. History of permanent pacemaker dysfunction. 5. Peripheral arterial disease with nonhealing lower extremity ulcerations. 6. Status post prior peripheral bypass surgery. 7. Coronary artery disease, status post coronary artery bypass graft surgery. 8. Diabetes mellitus. 9. End-stage renal disease, on hemodialysis. 10. Anemia. 11. Hyponatremia. RECOMMENDATIONS: 1. At this time, would maintain patient on current beta valentina and hydralazine for afterload reduction and treatment of cardiomyopathy and blood pressure control. 2. Would trend the patient's troponin in anticipation of possible need for upcoming surgery. 3. Need of patient's local wound care with vascular surgical consult and podiatric consult pending for lower extremity nonhealing wound. 4. Hemodialysis for volume removal. 5. Check a fasting lipid panel application and adjust patient's statin therapy if necessary. 6. Follow the patient's volume status closely. 7. Check a free T4 and get further tests for patient's current thyroid state. 8. Pain control. Thank you for allowing to take part in the care of this patient. I will continue to follow very closely with you. Further recommendations will be made as the patient progresses though her inpatient hospital course. Dictated By: Cherry Lucero /meenakshi/carolina /Document#: [id number] ; Dr. Johns
--- NOTE | 2016-10-06 13:14 | PN ---
DATE: 10/06/2016 SUBJECTIVE DATA: The patient is stable. No acute events overnight. The patient's pain is controlled. The patient is pending dialysis today. OBJECTIVE DATA: Vital signs: Blood pressure 121/58. Respirations 18. Pulse 83. Temperature 97.9. HEENT: Head is normocephalic. Neck supple. Heart: Regular rate. Lungs: Diminished breath sounds at the bases. Abdomen soft and nontender on palpation. No rebound or guarding. Positive gangrene on the right heel. Dermatology: No rashes. Musculoskeletal: No joint effusion. Neurological: No change in exam. MEDICATIONS: The patient's medications are reviewed. LABORATORY AND DIAGNOSTIC DATA: Sodium 128, potassium 4.8, BUN 32, creatinine 3.44. Phosphorus 5.4. White count is 8.0, hemoglobin 10.6, hematocrit 42.4, platelet count 107. ASSESSMENT AND PLAN: 1. Right lower extremity gangrene. The patient is status post angiogram and stenting of the iliac artery. The patient is status post angioplasty of occluded vessel. Continue current wound care. Follow up with Vascular Surgery for any further recommendations for intervention. Continue current antibiotic regimen. 2. Left lower extremity peripheral vascular disease. Continue medical management. 3. End-stage renal disease. Plan for hemodialysis today. 4. Hyperkalemia. Patient will be dialyzed in 140 sodium bath. Continue to monitor. 5. Cardiomyopathy. Continue medical management. 6. Anemia. Monitor H and H levels. 7. Diabetes. Continue current insulin regimen. 8. Hypertension. Continue blood pressure regimen. 9. Hypothyroidism. Continue Synthroid. 10. History of right hip fracture. 11. Metabolic bone disorder. Monitor calcium and phosphorus levels. Dictated By: Ihsan Johns DO /meenakshi/sheila /Document#: [id number]
--- NOTE | 2016-10-06 13:41 | PN ---
Date/Time of Note Date/Time of Note DATE: 10/06/16 TIME: 13:41 Assessment/Plan Lines/Catheters IV Catheter Type (from Nrsg): Saline Lock Tolbert in Place (from Nrsg): No Assessment/Plan Chief Complaint/Hosp Course Status post angiogram and iliac artery angioplasty and stent placement SP angioplasty Right saphenous vein graft Patient with strong Doppler signals over the dorsalis pedis artery We will continue Plavix Patient will need left lower extremity intervention after she has recovered from the current procedure We will remove permacath prior to discharge Discussed with Dr. Arce His cussed with the daughter Problems: Subjective 24 Hr Interval Summary Constitutional: improved Pain Control: mild Exam/Review of Systems Vital Signs Vitals Vital Signs Date Time Temp Pulse Resp B/P Pulse Ox O2 Delivery O2 Flow Rate FiO2 10/06/16 12:08 91 10/06/16 11:24 98.2 16 110/52 97 10/04/16 22:00 Room Air Intake and Output 10/05/16 10/05/16 10/06/16 15:00 23:00 07:00 Intake Total 1130 ml 400 ml Balance 1130 ml 400 ml Exam ENMT: mucosa pink and moist, nl external ears & nose, nl lips & teeth, nl nasal mucosa & septum Respiratory: clear to auscultation, normal air movement Cardiovascular: nl pulses, regular rate and rhythm Results Result Diagram: 10/06/16 0547 10/06/16 0547 BALDOMERO PALOMO MD Oct 06, 2016 13:41
--- NOTE | 2016-10-06 17:29 | CONS ---
Date/Time of Note Date/Time of Note DATE: 10/06/16 TIME: 17:27 Assessment/Plan Assessment/Plan Chief Complaint/Hosp Course ID PROGRESS NOTE TOTAL ABX DAY # => Levaquin +Vanco IV post HD 24H INTERVAL SUMMARY * 75 yo F resting with eyes closed, VSS, NAD, generalized weakness * (+)MRSA Nares screen repeat * No fevers, VSS * 10/06/16 0547 10/06/16 0547 PHYSICAL EXAMINATION: GENERAL: 75 yo F HEENT: Unremarkable NECK: Supple, trachea midline. CHEST: Rise symmetrical without dyspnea HEART: RRR ABDOMEN: Soft, NT EXTREMITIES: Warm, doppler pulse, DSG C/.D/I ID ASSESSMENT: 75 yo F w/ 1. s/p Sepsis with staph bacteremia==> Staph "CoNS" 1/2 bottles, possibly a contaminated sample 2. 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 End-stage renal disease, hemodialysis dependent * Left upper extremity AV fistula 5. DM w/complications of DM polyneuropathies: Nephro, Peripheral, Autonomic 6. CAD, w/Hx cardiomyopathy, hx of CABG, hx of non-ST elevation myocardial infarction type 2 7. Anemia of chronic disease, Epogen (+)MRSA Nares-> Bactroban CURRENT ABX: Levaquin +Vanco IV post HD ID RECOMMENDATIONS=> Continue current plan: 1. Continue current ABX 2. Follow vascular, APC recs . Problems: Consultation Date/Type/Reason Admit Date/Time Sep 26, 2016 at 16:53 Type of Consultation: [facility] Referring Provider: BRANDI ERICKSON DO Exam/Review of Systems Vital Signs Vitals Vital Signs Date Time Temp Pulse Resp B/P Pulse Ox O2 Delivery O2 Flow Rate FiO2 10/06/16 16:57 76 10/06/16 15:22 98.2 16 123/56 97 10/04/16 22:00 Room Air Intake and Output 10/05/16 10/05/16 10/06/16 15:00 23:00 07:00 Intake Total 1130 ml 400 ml Balance 1130 ml 400 ml Results Result Diagram: 10/06/16 0547 10/06/16 0547 Results 24 hrs Laboratory Tests Test 10/05/16 18:32 10/05/16 21:02 10/06/16 04:42 10/06/16 05:47 Bedside Glucose 147 129 129 White Blood Count 8.0 Red Blood Count 3.60 L Hemoglobin 10.6 L Hematocrit 32.4 L Mean Corpuscular Volume 90.0 Mean Corpuscular Hemoglobin 29.4 Mean Corpuscular Hemoglobin Concent 32.7 Red Cell Distribution Width 18.2 H Platelet Count 107 L Mean Platelet Volume 9.8 Neutrophils % 76.6 Lymphocytes % 14.6 L Monocytes % 7.2 Eosinophils % 0.6 Basophils % 0.4 Nucleated Red Blood Cells % 0.0 Neutrophils # 6.1 Lymphocytes # 1.2 Monocytes # 0.6 Eosinophils # 0.1 Basophils # 0.0 Nucleated Red Blood Cells # 0.0 Sodium Level 128 L Potassium Level 4.5 Chloride Level 88 L Carbon Dioxide Level 22 Anion Gap 23 H Blood Urea Nitrogen 32 H Creatinine 3.44 H Glucose Level 108 Calcium Level 7.7 L Phosphorus Level 5.4 H Magnesium Level 1.8 Test 10/06/16 08:42 10/06/16 12:46 Bedside Glucose 102 138 Medications Medications Current Medications Ferrous Sulfate (Ferrous Sulfate (Ec)) 325 mg DAILY PO Last administered on 08:44; Admin Dose 325 MG; Start 09/27/16 at 09:00 Hydralazine HCl (Apresoline) 10 mg BID PO Last administered on 10/06/16 08:44 ; Admin Dose 10 MG; Start 09/27/16 at 09:00 Metoprolol Succinate (Toprol Xl) 25 mg DAILY PO Last administered on 10/06/16 08:44; Admin Dose 25 MG; Start 09/27/16 at 09:00 Multivit/Ca Carb/ B Cmplx/FA/Prenat (Billie-Roge) 1 tab DAILY PO Last administered on 10/06/16 08:44; Admin Dose 1 TAB; Start 09/27/16 at 09:00 Polyethylene Glycol (Miralax) 17 gm DAILY PO Last administered on 10/06/16 08: 45; Admin Dose 17 GM; Start 09/27/16 at 09:00 Pantoprazole (Protonix Tab) 40 mg DAILY@06 PO Last administered on 10/06/16 06 :11; Admin Dose 40 MG; Start 09/27/16 at 06:00 Zolpidem Tartrate (Ambien) 5 mg HS PRN PO INSOMNIA; Start 09/27/16 at 01:00 Acetaminophen (Tylenol Tab) 650 mg Q6H PRN PO PAIN AND OR ELEVATED TEMP; Start 09/27/16 at 01:00 Ondansetron HCl (Zofran Inj) 4 mg Q6H PRN IV NAUSEA AND/OR VOMITING Last administered on 10/06/16 08:59; Admin Dose 4 MG; Start 09/27/16 at 01:00 IV Flush (NS 10 ml) 3 ml Q8 IV Last administered on 10/06/16 14:00; Admin Dose 3 ML; Start 09/27/16 at 06:00 Diagnostic Test (Pha) (Accu-Chek) 1 ea 02 XX Last administered on 10/02/16 02: 12; Admin Dose 1 EA; Start 09/28/16 at 02:00 Miscellaneous Information 1 ea NOTE XX ; Start 09/27/16 at 07:30 Glucose (Glutose) 15 gm Q15M PRN PO DECREASED GLUCOSE; Start 09/27/16 at 07:30 Glucose (Glutose) 22.5 gm Q15M PRN PO DECREASED GLUCOSE; Start 09/27/16 at 07: 30 Dextrose (D50w Syringe) 25 ml Q15M PRN IV DECREASED GLUCOSE; Start 09/27/16 at 07:30 Dextrose (D50w Syringe) 50 ml Q15M PRN IV DECREASED GLUCOSE; Start 09/27/16 at 07:30 Glucagon (Glucagen) 1 mg Q15M PRN IM DECREASED GLUCOSE; Start 09/27/16 at 07:30 Glucose (Glutose) 15 gm Q15M PRN BUCCAL DECREASED GLUCOSE; Start 09/27/16 at 07 :30 Acetaminophen/ Hydrocodone Bitart ([place] (10325)) 1.5 tab Q8H PO Last administered on 10/06/16 10:21; Admin Dose 1.5 TAB; Start 09/27/16 at 15:30 Clonidine (Catapres) 0.1 mg Q6H PRN PO SBP>170; Start 09/27/16 at 12:00 Morphine Sulfate (morphine) 2 mg Q2H PRN IV PAIN Last administered on 12:05; Admin Dose 2 MG; Start 09/27/16 at 22:00 Mupirocin (Bactroban) 1 applic BID TOP Last administered on 10/06/16 08:45; Admin Dose 1 APPLIC; Start 09/28/16 at 21:00 Atorvastatin Calcium (Lipitor) 40 mg DAILY@21 PO Last administered on 20:59; Admin Dose 40 MG; Start 09/29/16 at 21:00 Levofloxacin (Levaquin) 250 mg Q48H PO Last administered on 10/04/16 15:00; Admin Dose 250 MG; Start 09/30/16 at 15:00 Aspirin (Aspirin) 81 mg DAILY PO Last administered on 10/06/16 08:44; Admin Dose 81 MG; Start 10/05/16 at 09:00 Clopidogrel Bisulfate 75 mg 75 mg DAILY PO Last administered on 10/06/16 08:44 ; Admin Dose 75 MG; Start 10/05/16 at 09:00 Vancomycin HCl (Vancocin) 250 ml @ 125 mls/hr Q96H IVPB Last administered on 18:39; Admin Dose 125 MLS/HR; Start 10/05/16 at 18:00 QUINN SINGH NP Oct 06, 2016 17:29
[2016-10-06] MEDS: LEVOFLOXACIN 250 MG TAB PO SCH (18:12)
[2016-10-06] MEDS: ATORVASTATIN 40 MG TAB PO SCH (21:00)
--- NOTE | 2016-10-06 21:11 | CONS ---
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 PULMONARY: No sob CARDIOVASCULAR: No chest pain/palpitations GASTROINTESTINAL: No nausea/vomiting. GENITOURINARY: No hematuria/dysuria. MUSCULOSKELETAL: foot covered by dressing PSYCHIATRIC: The patient denies depression. NEUROLOGIC: No weakness Constitutional: alert Psych: no complaints Head: normocephalic ENMT: mucosa pink and moist Neck: jvd (9 cm water), supple Respiratory: diminished breath sounds (at bases/B) Cardiovascular: regular rate and rhythm Gastrointestinal: non-tender, soft Musculoskeletal: muscle tone (normal) Extremities: other (dopplerable DP pulses bilateral) Results Result Diagram: 10/06/16 0547 10/06/16 0547 Results 24 hrs Laboratory Tests Test 10/06/16 04:42 10/06/16 05:47 10/06/16 08:42 10/06/16 12:46 Bedside Glucose 129 102 138 White Blood Count 8.0 Red Blood Count 3.60 L Hemoglobin 10.6 L Hematocrit 32.4 L Mean Corpuscular Volume 90.0 Mean Corpuscular Hemoglobin 29.4 Mean Corpuscular Hemoglobin Concent 32.7 Red Cell Distribution Width 18.2 H Platelet Count 107 L Mean Platelet Volume 9.8 Neutrophils % 76.6 Lymphocytes % 14.6 L Monocytes % 7.2 Eosinophils % 0.6 Basophils % 0.4 Nucleated Red Blood Cells % 0.0 Neutrophils # 6.1 Lymphocytes # 1.2 Monocytes # 0.6 Eosinophils # 0.1 Basophils # 0.0 Nucleated Red Blood Cells # 0.0 Sodium Level 128 L Potassium Level 4.5 Chloride Level 88 L Carbon Dioxide Level 22 Anion Gap 23 H Blood Urea Nitrogen 32 H Creatinine 3.44 H Glucose Level 108 Calcium Level 7.7 L Phosphorus Level 5.4 H Magnesium Level 1.8 Test 10/06/16 18:09 Bedside Glucose 156 Medications Medications Current Medications Ferrous Sulfate (Ferrous Sulfate (Ec)) 325 mg DAILY PO Last administered on 08:44; Admin Dose 325 MG; Start 09/27/16 at 09:00 Hydralazine HCl (Apresoline) 10 mg BID PO Last administered on 10/06/16 08:44 ; Admin Dose 10 MG; Start 09/27/16 at 09:00 Metoprolol Succinate (Toprol Xl) 25 mg DAILY PO Last administered on 10/06/16 08:44; Admin Dose 25 MG; Start 09/27/16 at 09:00 Multivit/Ca Carb/ B Cmplx/FA/Prenat (Billie-Roge) 1 tab DAILY PO Last administered on 10/06/16 08:44; Admin Dose 1 TAB; Start 09/27/16 at 09:00 Polyethylene Glycol (Miralax) 17 gm DAILY PO Last administered on 10/06/16 08: 45; Admin Dose 17 GM; Start 09/27/16 at 09:00 Pantoprazole (Protonix Tab) 40 mg DAILY@06 PO Last administered on 10/06/16 06 :11; Admin Dose 40 MG; Start 09/27/16 at 06:00 Zolpidem Tartrate (Ambien) 5 mg HS PRN PO INSOMNIA; Start 09/27/16 at 01:00 Acetaminophen (Tylenol Tab) 650 mg Q6H PRN PO PAIN AND OR ELEVATED TEMP; Start 09/27/16 at 01:00 Ondansetron HCl (Zofran Inj) 4 mg Q6H PRN IV NAUSEA AND/OR VOMITING Last administered on 10/06/16 08:59; Admin Dose 4 MG; Start 09/27/16 at 01:00 IV Flush (NS 10 ml) 3 ml Q8 IV Last administered on 10/06/16 14:00; Admin Dose 3 ML; Start 09/27/16 at 06:00 Diagnostic Test (Pha) (Accu-Chek) 1 ea 02 XX Last administered on 10/02/16 02: 12; Admin Dose 1 EA; Start 09/28/16 at 02:00 Miscellaneous Information 1 ea NOTE XX ; Start 09/27/16 at 07:30 Glucose (Glutose) 15 gm Q15M PRN PO DECREASED GLUCOSE; Start 09/27/16 at 07:30 Glucose (Glutose) 22.5 gm Q15M PRN PO DECREASED GLUCOSE; Start 09/27/16 at 07: 30 Dextrose (D50w Syringe) 25 ml Q15M PRN IV DECREASED GLUCOSE; Start 09/27/16 at 07:30 Dextrose (D50w Syringe) 50 ml Q15M PRN IV DECREASED GLUCOSE; Start 09/27/16 at 07:30 Glucagon (Glucagen) 1 mg Q15M PRN IM DECREASED GLUCOSE; Start 09/27/16 at 07:30 Glucose (Glutose) 15 gm Q15M PRN BUCCAL DECREASED GLUCOSE; Start 09/27/16 at 07 :30 Acetaminophen/ Hydrocodone Bitart ([place] (10/325)) 1.5 tab Q8H PO Last administered on 10/06/16 20:43; Admin Dose 1.5 TAB; Start 09/27/16 at 15:30 Clonidine (Catapres) 0.1 mg Q6H PRN PO SBP>170; Start 09/27/16 at 12:00 Morphine Sulfate (morphine) 2 mg Q2H PRN IV PAIN Last administered on 12:05; Admin Dose 2 MG; Start 09/27/16 at 22:00 Mupirocin (Bactroban) 1 applic BID TOP Last administered on 10/06/16 21:01; Admin Dose 1 APPLIC; Start 09/28/16 at 21:00 Atorvastatin Calcium (Lipitor) 40 mg DAILY@21 PO Last administered on 21:00; Admin Dose 40 MG; Start 09/29/16 at 21:00 Levofloxacin (Levaquin) 250 mg Q48H PO Last administered on 10/06/16 18:12; Admin Dose 250 MG; Start 09/30/16 at 15:00 Aspirin (Aspirin) 81 mg DAILY PO Last administered on 10/06/16 08:44; Admin Dose 81 MG; Start 10/05/16 at 09:00 Clopidogrel Bisulfate 75 mg 75 mg DAILY PO Last administered on 10/06/16 08:44 ; Admin Dose 75 MG; Start 10/05/16 at 09:00 Vancomycin HCl (Vancocin) 250 ml @ 125 mls/hr Q96H IVPB Last administered on 18:39; Admin Dose 125 MLS/HR; Start 10/05/16 at 18:00 FABY HORN MD Oct 06, 2016 21:11
[2016-10-07] VITALS (13 sets, daily range): BP systolic 103–116; BP diastolic 54–60; PULSE 72–148; RESP 16–20
[2016-10-07] MEDS: ACCU-CHEK XX SCH (02:00)
[2016-10-07] MEDS: EPOETIN 4000 UNITS/1 ML INJ (ESRD) SC SCH (02:40)
[2016-10-07] MEDS: HYDROCODONE/APAP (10/325) TAB PO SCH ×4 (06:07→23:25)
[2016-10-07] MEDS: PANTOPRAZOLE (EC) 40 MG TAB PO SCH (06:07)
[2016-10-07] MEDS: LEVOTHYROXINE 88 MCG TAB PO SCH ×2 (07:00→10:00)
[2016-10-07] MEDS: INSULIN ASPART [NOVOLOG] 3 ML PEN SC SCH ×4 (07:55→21:00)
[2016-10-07] MEDS: CLOPIDOGREL 75 MG TAB PO SCH (09:58)
[2016-10-07] MEDS: SEVELAMER 800 MG TAB PO SCH ×3 (09:59→18:08)
[2016-10-07] MEDS: METOPROLOL (XL) 25 MG TAB PO SCH (09:59)
[2016-10-07] MEDS: FERROUS SULFATE (EC) 325 MG TAB PO SCH (09:59)
[2016-10-07] MEDS: MULTIVIT/CA CARB/B CMPLX/FA TAB PO SCH (09:59)
[2016-10-07] MEDS: MUPIROCIN 2% 22 GM OINT TOP SCH ×2 (10:00→21:47)
[2016-10-07] MEDS: ASPIRIN 81 MG TAB PO SCH (10:00)
[2016-10-07] MEDS: POLYETHYLENE GLYCOL 17 GM PACKET PO SCH (10:00)
--- NOTE | 2016-10-07 10:45 | CONS ---
Date/Time of Note Date/Time of Note DATE: 10/07/16 TIME: 10:43 Assessment/Plan Assessment/Plan Additional Assessment/Plan 1. Cardiomyopathy with decreased left ventricular ejection fraction, status post congestive heart failure- good fluid status now. 2. Hypertension, under reasonable control. 3. Dyslipidemia. 4. History of permanent pacemaker - stable function. 5. Peripheral arterial disease with nonhealing lower extremity ulcerations - s /p PCI - pain, but not ischemic. 6. Status post prior peripheral bypass surgery. 7. Coronary artery disease, status post coronary artery bypass graft surgery. 8. Diabetes mellitus. 9. End-stage renal disease, on hemodialysis.Rx as needed. 10. Anemia. 11. Hyponatremia. Consultation Date/Type/Reason Admit Date/Time Sep 26, 2016 at 16:53 Initial Consult Date Type of Consultation: [facility] Referring Provider: BRANDI ERICKSON DO 24 HR Interval Summary Free Text/Dictation S/P LE PCI - pain, but not ischemic. Con't pain Rx - on meds now. NO CP noted. ROS: No fever, no chills, no nausea, no vomiting, no diarrhea/constipation No recent weight changes No chest pain, no PND, no orthopnea No dizziness, blurred vision No thirst, no heat or cold intolerance Exam/Review of Systems Vital Signs Vitals Vital Signs Date Time Temp Pulse Resp B/P Pulse Ox O2 Delivery O2 Flow Rate FiO2 10/07/16 08:09 74 10/07/16 07:47 98.1 20 108/55 96 10/04/16 22:00 Room Air Intake and Output 10/06/16 10/06/16 10/07/16 15:00 23:00 07:00 Intake Total 300 ml 610 ml 200 ml Output Total 2300 ml Balance -2000 ml 610 ml 200 ml Exam General: WN/WD/NAD, AOx 3 HEENT: Unicetric/atraumatic/EOMI (follow commands) NECK: JVD elevated, no thyromegaly Lymph: no lymphadenopathy HEART: regular with no S3, II/ systolic murmur at apex LUNGS: Coarse sounds ABD: soft, NT, ND, +BS : Intact Neuro: non focal SKIN: chronic changes EXT: trace edema, PAD, erythema - + Pain Results Result Diagram: 10/06/16 0547 10/06/16 0547 Results 24 hrs Laboratory Tests Test 10/06/16 12:46 10/06/16 18:09 10/06/16 21:02 10/07/16 08:29 Bedside Glucose 138 156 196 117 Medications Medications Current Medications Ferrous Sulfate (Ferrous Sulfate (Ec)) 325 mg DAILY PO Last administered on 09:59; Admin Dose 325 MG; Start 09/27/16 at 09:00 Hydralazine HCl (Apresoline) 10 mg BID PO Last administered on 10/06/16 08:44 ; Admin Dose 10 MG; Start 09/27/16 at 09:00 Metoprolol Succinate (Toprol Xl) 25 mg DAILY PO Last administered on 10/07/16 09:59; Admin Dose 25 MG; Start 09/27/16 at 09:00 Multivit/Ca Carb/ B Cmplx/FA/Prenat (Billie-Roge) 1 tab DAILY PO Last administered on 10/07/16 09:59; Admin Dose 1 TAB; Start 09/27/16 at 09:00 Polyethylene Glycol (Miralax) 17 gm DAILY PO Last administered on 10/07/16 10: 00; Admin Dose 17 GM; Start 09/27/16 at 09:00 Pantoprazole (Protonix Tab) 40 mg DAILY@06 PO Last administered on 10/07/16 06 :07; Admin Dose 40 MG; Start 09/27/16 at 06:00 Zolpidem Tartrate (Ambien) 5 mg HS PRN PO INSOMNIA; Start 09/27/16 at 01:00 Acetaminophen (Tylenol Tab) 650 mg Q6H PRN PO PAIN AND OR ELEVATED TEMP; Start 09/27/16 at 01:00 Ondansetron HCl (Zofran Inj) 4 mg Q6H PRN IV NAUSEA AND/OR VOMITING Last administered on 10/06/16 08:59; Admin Dose 4 MG; Start 09/27/16 at 01:00 IV Flush (NS 10 ml) 3 ml Q8 IV Last administered on 10/07/16 06:07; Admin Dose 3 ML; Start 09/27/16 at 06:00 Diagnostic Test (Pha) (Accu-Chek) 1 ea 02 XX Last administered on 10/02/16 02: 12; Admin Dose 1 EA; Start 09/28/16 at 02:00 Miscellaneous Information 1 ea NOTE XX ; Start 09/27/16 at 07:30 Glucose (Glutose) 15 gm Q15M PRN PO DECREASED GLUCOSE; Start 09/27/16 at 07:30 Glucose (Glutose) 22.5 gm Q15M PRN PO DECREASED GLUCOSE; Start 09/27/16 at 07: 30 Dextrose (D50w Syringe) 25 ml Q15M PRN IV DECREASED GLUCOSE; Start 09/27/16 at 07:30 Dextrose (D50w Syringe) 50 ml Q15M PRN IV DECREASED GLUCOSE; Start 09/27/16 at 07:30 Glucagon (Glucagen) 1 mg Q15M PRN IM DECREASED GLUCOSE; Start 09/27/16 at 07:30 Glucose (Glutose) 15 gm Q15M PRN BUCCAL DECREASED GLUCOSE; Start 09/27/16 at 07 :30 Acetaminophen/ Hydrocodone Bitart ([place] (10/325)) 1.5 tab Q8H PO Last administered on 10/07/16 06:07; Admin Dose 1.5 TAB; Start 09/27/16 at 15:30 Clonidine (Catapres) 0.1 mg Q6H PRN PO SBP>170; Start 09/27/16 at 12:00 Morphine Sulfate (morphine) 2 mg Q2H PRN IV PAIN Last administered on 12:05; Admin Dose 2 MG; Start 09/27/16 at 22:00 Mupirocin (Bactroban) 1 applic BID TOP Last administered on 10/07/16 10:00; Admin Dose 1 APPLIC; Start 09/28/16 at 21:00 Atorvastatin Calcium (Lipitor) 40 mg DAILY@21 PO Last administered on 21:00; Admin Dose 40 MG; Start 09/29/16 at 21:00 Levofloxacin (Levaquin) 250 mg Q48H PO Last administered on 10/06/16 18:12; Admin Dose 250 MG; Start 09/30/16 at 15:00 Aspirin (Aspirin) 81 mg DAILY PO Last administered on 10/07/16 10:00; Admin Dose 81 MG; Start 10/05/16 at 09:00 Clopidogrel Bisulfate 75 mg 75 mg DAILY PO Last administered on 10/07/16 09:58 ; Admin Dose 75 MG; Start 10/05/16 at 09:00 Vancomycin HCl (Vancocin) 250 ml @ 125 mls/hr Q96H IVPB Last administered on t 18:39; Admin Dose 125 MLS/HR; Start 10/05/16 at 18:00 PEDRO LUIS HUTTON MD Oct 07, 2016 10:45
--- NOTE | 2016-10-07 15:17 | CONS ---
Date/Time of Note Date/Time of Note DATE: 10/07/16 TIME: 15:06 Assessment/Plan Assessment/Plan Chief Complaint/Hosp Course ID PROGRESS NOTE TOTAL ABX DAY # => Levaquin +Vanco IV post HD 24H INTERVAL SUMMARY * Awake, Alert, daughter present, she is taking PO, did not sleep last night patient in neighbor room screamed/moaned in distress all night. She is feeling tired from lack of sleep. Her bilateral feet also w/pain, Philo helps, does not relieve the pain. * No fevers, VSS, WBC 8.0 PHYSICAL EXAMINATION: GENERAL: 75 yo F HEENT: Unremarkable NECK: Supple, trachea midline. CHEST: Rise symmetrical without dyspnea HEART: RRR ABDOMEN: Soft, NT EXTREMITIES: Warm, gangrenous changes toes, DSG C/.D/I ID ASSESSMENT: 75 yo F w/ 1. s/p Sepsis with staph bacteremia==> Staph "CoNS" 1/2 bottles, possibly a contaminated sample 2. 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 Severe peripheral arterial disease, * s/p 09/29/16 angiogram and iliac artery angioplasty and stent placement * s/p 10/04/16 POOL NURSE to graft now patent -> started on Plavix 4. End-stage renal disease, hemodialysis dependent * Left upper extremity AV fistula 5. DM w/complications of DM polyneuropathies: Nephro, Peripheral, Autonomic 6. CAD, w/Hx cardiomyopathy, hx of CABG, hx of non-ST elevation myocardial infarction type 2 7. Anemia of chronic disease, Epogen (+)MRSA Nares-> Bactroban CURRENT ABX: Levaquin +Vanco IV post HD ID RECOMMENDATIONS=> Continue current plan: 1. Per Vascular -> Patient will need left lower extremity intervention after she has recovered from the current procedures 2. When cleared for DC => Patient may DC on current ABX Vanco IV 1GM Q96H to be given during HD w/continued dose per pharmacy; and Levaquin 250mg po Q48H x 28 days * Unknown date of future intervention, best to send her out with adequate ABX supply . . Problems: Consultation Date/Type/Reason Admit Date/Time Sep 26, 2016 at 16:53 Type of Consultation: ID Referring Provider: BRANDI ERICKSON DO Exam/Review of Systems Vital Signs Vitals Vital Signs Date Time Temp Pulse Resp B/P Pulse Ox O2 Delivery O2 Flow Rate FiO2 10/07/16 12:03 75 10/07/16 11:28 97.9 20 111/55 95 10/04/16 22:00 Room Air Intake and Output 10/06/16 10/06/16 10/07/16 15:00 23:00 07:00 Intake Total 300 ml 610 ml 200 ml Output Total 2300 ml Balance -2000 ml 610 ml 200 ml Results Result Diagram: 10/06/16 0547 10/06/16 0547 Results 24 hrs Laboratory Tests Test 10/06/16 18:09 10/06/16 21:02 10/07/16 08:29 10/07/16 12:45 Bedside Glucose 156 196 117 122 Medications Medications Current Medications Ferrous Sulfate (Ferrous Sulfate (Ec)) 325 mg DAILY PO Last administered on 09:59; Admin Dose 325 MG; Start 09/27/16 at 09:00 Hydralazine HCl (Apresoline) 10 mg BID PO Last administered on 10/06/16 08:44 ; Admin Dose 10 MG; Start 09/27/16 at 09:00 Metoprolol Succinate (Toprol Xl) 25 mg DAILY PO Last administered on 10/07/16 09:59; Admin Dose 25 MG; Start 09/27/16 at 09:00 Multivit/Ca Carb/ B Cmplx/FA/Prenat (Billie-Roge) 1 tab DAILY PO Last administered on 10/07/16 09:59; Admin Dose 1 TAB; Start 09/27/16 at 09:00 Polyethylene Glycol (Miralax) 17 gm DAILY PO Last administered on 10/07/16 10: 00; Admin Dose 17 GM; Start 09/27/16 at 09:00 Pantoprazole (Protonix Tab) 40 mg DAILY@06 PO Last administered on 10/07/16 06 :07; Admin Dose 40 MG; Start 09/27/16 at 06:00 Zolpidem Tartrate (Ambien) 5 mg HS PRN PO INSOMNIA; Start 09/27/16 at 01:00 Acetaminophen (Tylenol Tab) 650 mg Q6H PRN PO PAIN AND OR ELEVATED TEMP; Start 09/27/16 at 01:00 Ondansetron HCl (Zofran Inj) 4 mg Q6H PRN IV NAUSEA AND/OR VOMITING Last administered on 10/06/16 08:59; Admin Dose 4 MG; Start 09/27/16 at 01:00 IV Flush (NS 10 ml) 3 ml Q8 IV Last administered on 10/07/16 06:07; Admin Dose 3 ML; Start 09/27/16 at 06:00 Diagnostic Test (Pha) (Accu-Chek) 1 ea 02 XX Last administered on 10/02/16 02: 12; Admin Dose 1 EA; Start 09/28/16 at 02:00 Miscellaneous Information 1 ea NOTE XX ; Start 09/27/16 at 07:30 Glucose (Glutose) 15 gm Q15M PRN PO DECREASED GLUCOSE; Start 09/27/16 at 07:30 Glucose (Glutose) 22.5 gm Q15M PRN PO DECREASED GLUCOSE; Start 09/27/16 at 07: 30 Dextrose (D50w Syringe) 25 ml Q15M PRN IV DECREASED GLUCOSE; Start 09/27/16 at 07:30 Dextrose (D50w Syringe) 50 ml Q15M PRN IV DECREASED GLUCOSE; Start 09/27/16 at 07:30 Glucagon (Glucagen) 1 mg Q15M PRN IM DECREASED GLUCOSE; Start 09/27/16 at 07:30 Glucose (Glutose) 15 gm Q15M PRN BUCCAL DECREASED GLUCOSE; Start 09/27/16 at 07 :30 Acetaminophen/ Hydrocodone Bitart ([place] (10/325)) 1.5 tab Q8H PO Last administered on 10/07/16 15:05; Admin Dose 1.5 TAB; Start 09/27/16 at 15:30 Clonidine (Catapres) 0.1 mg Q6H PRN PO SBP>170; Start 09/27/16 at 12:00 Morphine Sulfate (morphine) 2 mg Q2H PRN IV PAIN Last administered on 12:05; Admin Dose 2 MG; Start 09/27/16 at 22:00 Mupirocin (Bactroban) 1 applic BID TOP Last administered on 10/07/16 10:00; Admin Dose 1 APPLIC; Start 09/28/16 at 21:00 Atorvastatin Calcium (Lipitor) 40 mg DAILY@21 PO Last administered on 21:00; Admin Dose 40 MG; Start 09/29/16 at 21:00 Levofloxacin (Levaquin) 250 mg Q48H PO Last administered on 10/06/16 18:12; Admin Dose 250 MG; Start 09/30/16 at 15:00 Aspirin (Aspirin) 81 mg DAILY PO Last administered on 10/07/16 10:00; Admin Dose 81 MG; Start 10/05/16 at 09:00 Clopidogrel Bisulfate 75 mg 75 mg DAILY PO Last administered on 10/07/16 09:58 ; Admin Dose 75 MG; Start 10/05/16 at 09:00 Vancomycin HCl (Vancocin) 250 ml @ 125 mls/hr Q96H IVPB Last administered on 18:39; Admin Dose 125 MLS/HR; Start 10/05/16 at 18:00 QUINN SINGH NP Oct 07, 2016 15:17
--- NOTE | 2016-10-07 15:54 | PN ---
DATE: 10/07/2016 SUBJECTIVE DATA: The patient is stable, had hemodialysis yesterday, tolerated it well. The patient continues to have pain in the right lower extremity. Control pain medications. No other events noted. OBJECTIVE DATA: VITAL SIGNS: Blood pressure 108/55, respirations 20, pulse 74, temperature 98.1. HEENT: Head is normocephalic. NECK: Supple. HEART: Regular rate. LUNGS: Diminished breath sounds at the base. ABDOMEN: Soft, nontender to palpation. No rebound or guarding. EXTREMITIES: Negative for clubbing, cyanosis, no edema. Lower extremity, the patient has a right heel dry gangrene. DERMATOLOGIC: Clean. No rashes. MUSCULOSKELETAL: No joint effusion. NEUROLOGIC: No change in examination. MEDICATIONS: Reviewed. LABORATORY DATA: Laboratory data has been reviewed. No new labs. ASSESSMENT AND PLAN: 1. Right lower extremity gangrene. The patient is status post angiogram with stenting of the iliac artery. The patient is currently stable. Continue wound care. Continue pain control. Follow up with vascular surgery. 2. Left lower extremity vascular disease. Continue medical management. The patient is pending possible angiogram. Will defer to surgery for recommendations. 3. End-stage renal disease. Patient on dialysis Sunday, Sunday, Sunday. Had hemodialysis yesterday. Plan for next dialysis on Sunday. 4. Hyponatremia. Continue dialysis on a 140 sodium bath. 5. Cardiomyopathy, coronary artery disease. Continue medical management. 6. Anemia. Monitor hemoglobin and hematocrit levels. Will give Epogen with dialysis. 7. Diabetes. Continue Accu-Chek and insulin sliding scale. 8. Hypertension. Continue current blood pressure regimen. 9. Hypothyroidism. Continue Synthroid. 10. History of hip fracture. 11. bone disorder. Continue to monitor calcium and phosphorus levels. Dictated By: Ihsan Johns DO /[email or web address] /Document#: [id number]
--- NOTE | 2016-10-07 17:12 | CONS ---
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 Con't pain Rx - on meds now. NO CP noted. Exam/Review of Systems Vital Signs Vitals Vital Signs Date Time Temp Pulse Resp B/P Pulse Ox O2 Delivery O2 Flow Rate FiO2 10/07/16 16:06 74 10/07/16 15:39 97.8 113/54 98 10/07/16 11:28 20 10/04/16 22:00 Room Air Intake and Output 10/06/16 10/06/16 10/07/16 15:00 23:00 07:00 Intake Total 300 ml 610 ml 200 ml Output Total 2300 ml Balance -2000 ml 610 ml 200 ml Exam Exam General: WN/WD/NAD, AOx 3 HEENT: Unicetric/atraumatic/EOMI (follow commands) NECK: JVD elevated, no thyromegaly Lymph: no lymphadenopathy HEART: regular with no S3, II/ systolic murmur at apex LUNGS: Coarse sounds ABD: soft, NT, ND, +BS : Intact Neuro: non focal SKIN: chronic changes EXT: trace edema, PAD, erythema - + Pain Results Result Diagram: 10/06/16 0547 10/06/16 0547 Results 24 hrs Laboratory Tests Test 10/06/16 18:09 10/06/16 21:02 10/07/16 08:29 10/07/16 12:45 Bedside Glucose 156 196 117 122 Medications Medications Current Medications Ferrous Sulfate (Ferrous Sulfate (Ec)) 325 mg DAILY PO Last administered on t 09:59; Admin Dose 325 MG; Start 09/27/16 at 09:00 Hydralazine HCl (Apresoline) 10 mg BID PO Last administered on 10/06/16 08:44 ; Admin Dose 10 MG; Start 09/27/16 at 09:00 Metoprolol Succinate (Toprol Xl) 25 mg DAILY PO Last administered on 10/07/16 09:59; Admin Dose 25 MG; Start 09/27/16 at 09:00 Multivit/Ca Carb/ B Cmplx/FA/Prenat (Billie-Roge) 1 tab DAILY PO Last administered on 10/07/16 09:59; Admin Dose 1 TAB; Start 09/27/16 at 09:00 Polyethylene Glycol (Miralax) 17 gm DAILY PO Last administered on 10/07/16 10: 00; Admin Dose 17 GM; Start 09/27/16 at 09:00 Pantoprazole (Protonix Tab) 40 mg DAILY@06 PO Last administered on 10/07/16 06 :07; Admin Dose 40 MG; Start 09/27/16 at 06:00 Zolpidem Tartrate (Ambien) 5 mg HS PRN PO INSOMNIA; Start 09/27/16 at 01:00 Acetaminophen (Tylenol Tab) 650 mg Q6H PRN PO PAIN AND OR ELEVATED TEMP; Start 09/27/16 at 01:00 Ondansetron HCl (Zofran Inj) 4 mg Q6H PRN IV NAUSEA AND/OR VOMITING Last administered on 10/06/16 08:59; Admin Dose 4 MG; Start 09/27/16 at 01:00 IV Flush (NS 10 ml) 3 ml Q8 IV Last administered on 10/07/16 06:07; Admin Dose 3 ML; Start 09/27/16 at 06:00 Diagnostic Test (Pha) (Accu-Chek) 1 ea 02 XX Last administered on 10/02/16 02: 12; Admin Dose 1 EA; Start 09/28/16 at 02:00 Miscellaneous Information 1 ea NOTE XX ; Start 09/27/16 at 07:30 Glucose (Glutose) 15 gm Q15M PRN PO DECREASED GLUCOSE; Start 09/27/16 at 07:30 Glucose (Glutose) 22.5 gm Q15M PRN PO DECREASED GLUCOSE; Start 09/27/16 at 07: 30 Dextrose (D50w Syringe) 25 ml Q15M PRN IV DECREASED GLUCOSE; Start 09/27/16 at 07:30 Dextrose (D50w Syringe) 50 ml Q15M PRN IV DECREASED GLUCOSE; Start 09/27/16 at 07:30 Glucagon (Glucagen) 1 mg Q15M PRN IM DECREASED GLUCOSE; Start 09/27/16 at 07:30 Glucose (Glutose) 15 gm Q15M PRN BUCCAL DECREASED GLUCOSE; Start 09/27/16 at 07 :30 Acetaminophen/ Hydrocodone Bitart ([place] (10/325)) 1.5 tab Q8H PO Last administered on 10/07/16 15:05; Admin Dose 1.5 TAB; Start 09/27/16 at 15:30 Clonidine (Catapres) 0.1 mg Q6H PRN PO SBP>170; Start 09/27/16 at 12:00 Morphine Sulfate (morphine) 2 mg Q2H PRN IV PAIN Last administered on 12:05; Admin Dose 2 MG; Start 09/27/16 at 22:00 Mupirocin (Bactroban) 1 applic BID TOP Last administered on 10/07/16 10:00; Admin Dose 1 APPLIC; Start 09/28/16 at 21:00 Atorvastatin Calcium (Lipitor) 40 mg DAILY@21 PO Last administered on 21:00; Admin Dose 40 MG; Start 09/29/16 at 21:00 Levofloxacin (Levaquin) 250 mg Q48H PO Last administered on 10/06/16 18:12; Admin Dose 250 MG; Start 09/30/16 at 15:00 Aspirin (Aspirin) 81 mg DAILY PO Last administered on 10/07/16 10:00; Admin Dose 81 MG; Start 10/05/16 at 09:00 Clopidogrel Bisulfate 75 mg 75 mg DAILY PO Last administered on 10/07/16 09:58 ; Admin Dose 75 MG; Start 10/05/16 at 09:00 Vancomycin HCl (Vancocin) 250 ml @ 125 mls/hr Q96H IVPB Last administered on 18:39; Admin Dose 125 MLS/HR; Start 10/05/16 at 18:00 FABY HORN MD Oct 07, 2016 17:12
--- NOTE | 2016-10-07 19:48 | PN ---
Date/Time of Note Date/Time of Note DATE: 10/07/16 TIME: 19:47 Assessment/Plan Lines/Catheters IV Catheter Type (from Nrsg): Saline Lock Tolbert in Place (from Nrsg): No Assessment/Plan Chief Complaint/Hosp Course Status post angiogram and iliac artery angioplasty and stent placement SP angioplasty Right saphenous vein graft Patient with strong Doppler signals over the dorsalis pedis artery We will continue Plavix Patient will need left lower extremity intervention after she has recovered from the current procedure We will remove permacath on Sunday Discussed with Dr. rAce His cussed with the daughter Problems: Subjective 24 Hr Interval Summary Constitutional: improved Pain Control: mild Exam/Review of Systems Vital Signs Vitals Vital Signs Date Time Temp Pulse Resp B/P Pulse Ox O2 Delivery O2 Flow Rate FiO2 10/07/16 18:58 98.0 74 18 114/55 100 10/04/16 22:00 Room Air Intake and Output 10/06/16 10/06/16 10/07/16 15:00 23:00 07:00 Intake Total 300 ml 610 ml 200 ml Output Total 2300 ml Balance -2000 ml 610 ml 200 ml Exam Neck: non-tender, supple Respiratory: clear to auscultation, normal air movement Cardiovascular: nl pulses, regular rate and rhythm Gastrointestinal: nl liver, spleen, non-tender, soft Results Result Diagram: 10/06/16 0547 10/06/16 0547 BALDOMERO PALOMO MD Oct 07, 2016 19:48
[2016-10-07] MEDS: ATORVASTATIN 40 MG TAB PO SCH (21:46)
[2016-10-08] VITALS (12 sets, daily range): BP systolic 98–122; BP diastolic 48–59; PULSE 70–80; RESP 18–20
[2016-10-08] MEDS: ACCU-CHEK XX SCH (02:00)
[2016-10-08] MEDS: PANTOPRAZOLE (EC) 40 MG TAB PO SCH (07:02)
[2016-10-08] MEDS: LEVOTHYROXINE 88 MCG TAB PO SCH (07:02)
[2016-10-08] MEDS: HYDROCODONE/APAP (10/325) TAB PO SCH ×3 (07:03→23:13)
[2016-10-08] MEDS: INSULIN ASPART [NOVOLOG] 3 ML PEN SC SCH ×4 (07:55→21:00)
[2016-10-08] MEDS: SEVELAMER 800 MG TAB PO SCH ×3 (09:19→17:52)
[2016-10-08] MEDS: MULTIVIT/CA CARB/B CMPLX/FA TAB PO SCH (09:19)
[2016-10-08] MEDS: MUPIROCIN 2% 22 GM OINT TOP SCH ×2 (09:20→21:25)
[2016-10-08] MEDS: ASPIRIN 81 MG TAB PO SCH (09:20)
[2016-10-08] MEDS: POLYETHYLENE GLYCOL 17 GM PACKET PO SCH (09:20)
[2016-10-08] MEDS: METOPROLOL (XL) 25 MG TAB PO SCH (09:20)
[2016-10-08] MEDS: FERROUS SULFATE (EC) 325 MG TAB PO SCH (09:20)
[2016-10-08] MEDS: CLOPIDOGREL 75 MG TAB PO SCH (09:20)
--- NOTE | 2016-10-08 12:12 | CONS ---
Date/Time of Note Date/Time of Note DATE: 10/08/16 TIME: 12:08 Assessment/Plan Assessment/Plan Chief Complaint/Hosp Course Assessment/Plan Chief Complaint/Hosp Course ID PROGRESS NOTE TOTAL ABX DAY # => Levaquin +Vanco IV post HD 24H INTERVAL SUMMARY * Awake. Alert. Complains of Right Foot Pain. PHYSICAL EXAMINATION: GENERAL: 75 yo F HEENT: Unremarkable NECK: Supple, trachea midline. CHEST: Rise symmetrical without dyspnea HEART: RRR ABDOMEN: Soft, NT EXTREMITIES: Warm, gangrenous changes toes, DSG C/.D/I ID ASSESSMENT: 75 yo F w/ 1. s/p Sepsis with staph bacteremia==> Staph "CoNS" 1/2 bottles, possibly a contaminated sample 2. 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 Severe peripheral arterial disease, * s/p 09/29/16 angiogram and iliac artery angioplasty and stent placement * s/p 10/04/16 SO[employer] WELT to graft now patent -> started on Plavix 4. End-stage renal disease, hemodialysis dependent * Left upper extremity AV fistula 5. DM w/complications of DM polyneuropathies: Nephro, Peripheral, Autonomic 6. CAD, w/Hx cardiomyopathy, hx of CABG, hx of non-ST elevation myocardial infarction type 2 7. Anemia of chronic disease, Epogen (+)MRSA Nares-> Bactroban CURRENT ABX: Levaquin +Vanco IV post HD ID RECOMMENDATIONS=> Continue current plan: 1. Per Vascular Specialist => Patient will need left lower extremity intervention after she has recovered from the current procedures. 2. When cleared for DC => Patient may DC on current ABX Vanco IV 1GM Q96H to be given during HD w/continued dose per pharmacy; and Levaquin 250mg po Q48H x 28 days * Unknown date of future intervention, best to send her out with adequate ABX supply . Pain management. Monitor. Problems: Consultation Date/Type/Reason Admit Date/Time Sep 26, 2016 at 16:53 Type of Consultation: id Referring Provider: BRANDI ERICKSON DO Exam/Review of Systems Vital Signs Vitals Vital Signs Date Time Temp Pulse Resp B/P Pulse Ox O2 Delivery O2 Flow Rate FiO2 10/08/16 11:30 97.8 72 18 115/55 97 7/26/17 22:00 Room Air Intake and Output 10/07/16 10/07/16 10/08/16 15:00 23:00 07:00 Intake Total 680 ml 350 ml Balance 680 ml 350 ml Results Result Diagram: 10/06/16 0547 10/06/16 0547 Results 24 hrs Laboratory Tests Test 10/07/16 12:45 10/07/16 17:46 10/07/16 21:48 10/08/16 08:10 Bedside Glucose 122 135 139 99 Medications Medications Current Medications Ferrous Sulfate (Ferrous Sulfate (Ec)) 325 mg DAILY PO Last administered on 09:20; Admin Dose 325 MG; Start 09/27/16 at 09:00 Hydralazine HCl (Apresoline) 10 mg BID PO Last administered on 10/07/16 21:46 ; Admin Dose 10 MG; Start 09/27/16 at 09:00 Metoprolol Succinate (Toprol Xl) 25 mg DAILY PO Last administered on 10/08/16 09:20; Admin Dose 25 MG; Start 09/27/16 at 09:00 Multivit/Ca Carb/ B Cmplx/FA/Prenat (Billie-Roge) 1 tab DAILY PO Last administered on 10/08/16 09:19; Admin Dose 1 TAB; Start 09/27/16 at 09:00 Polyethylene Glycol (Miralax) 17 gm DAILY PO Last administered on 10/08/16 09: 20; Admin Dose 17 GM; Start 09/27/16 at 09:00 Pantoprazole (Protonix Tab) 40 mg DAILY@06 PO Last administered on 10/08/16 07 :02; Admin Dose 40 MG; Start 09/27/16 at 06:00 Zolpidem Tartrate (Ambien) 5 mg HS PRN PO INSOMNIA; Start 09/27/16 at 01:00 Acetaminophen (Tylenol Tab) 650 mg Q6H PRN PO PAIN AND OR ELEVATED TEMP; Start 09/27/16 at 01:00 Ondansetron HCl (Zofran Inj) 4 mg Q6H PRN IV NAUSEA AND/OR VOMITING Last administered on 10/06/16 08:59; Admin Dose 4 MG; Start 09/27/16 at 01:00 IV Flush (NS 10 ml) 3 ml Q8 IV Last administered on 10/08/16 06:00; Admin Dose 3 ML; Start 09/27/16 at 06:00 Diagnostic Test (Pha) (Accu-Chek) 1 ea 02 XX Last administered on 10/02/16 02: 12; Admin Dose 1 EA; Start 09/28/16 at 02:00 Miscellaneous Information 1 ea NOTE XX ; Start 09/27/16 at 07:30 Glucose (Glutose) 15 gm Q15M PRN PO DECREASED GLUCOSE; Start 09/27/16 at 07:30 Glucose (Glutose) 22.5 gm Q15M PRN PO DECREASED GLUCOSE; Start 09/27/16 at 07: 30 Dextrose (D50w Syringe) 25 ml Q15M PRN IV DECREASED GLUCOSE; Start 09/27/16 at 07:30 Dextrose (D50w Syringe) 50 ml Q15M PRN IV DECREASED GLUCOSE; Start 09/27/16 at 07:30 Glucagon (Glucagen) 1 mg Q15M PRN IM DECREASED GLUCOSE; Start 09/27/16 at 07:30 Glucose (Glutose) 15 gm Q15M PRN BUCCAL DECREASED GLUCOSE; Start 09/27/16 at 07 :30 Acetaminophen/ Hydrocodone Bitart ([place] (10/325)) 1.5 tab Q8H PO Last administered on 10/08/16 07:03; Admin Dose 1.5 TAB; Start 09/27/16 at 15:30 Clonidine (Catapres) 0.1 mg Q6H PRN PO SBP>170; Start 09/27/16 at 12:00 Morphine Sulfate (morphine) 2 mg Q2H PRN IV PAIN Last administered on 12:05; Admin Dose 2 MG; Start 09/27/16 at 22:00 Mupirocin (Bactroban) 1 applic BID TOP Last administered on 10/08/16 09:20; Admin Dose 1 APPLIC; Start 09/28/16 at 21:00 Atorvastatin Calcium (Lipitor) 40 mg DAILY@21 PO Last administered on 21:46; Admin Dose 40 MG; Start 09/29/16 at 21:00 Levofloxacin (Levaquin) 250 mg Q48H PO Last administered on 10/06/16 18:12; Admin Dose 250 MG; Start 09/30/16 at 15:00 Aspirin (Aspirin) 81 mg DAILY PO Last administered on 10/08/16 09:20; Admin Dose 81 MG; Start 10/05/16 at 09:00 Clopidogrel Bisulfate 75 mg 75 mg DAILY PO Last administered on 10/08/16 09:20 ; Admin Dose 75 MG; Start 10/05/16 at 09:00 Vancomycin HCl (Vancocin) 250 ml @ 125 mls/hr Q96H IVPB Last administered on 18:39; Admin Dose 125 MLS/HR; Start 10/05/16 at 18:00 PARIS PURVIS NP Oct 08, 2016 12:12
--- NOTE | 2016-10-08 14:50 | PN ---
Date/Time of Note Date/Time of Note DATE: 10/08/16 TIME: 14:49 Assessment/Plan Lines/Catheters IV Catheter Type (from Nrsg): Saline Lock Tolbert in Place (from Nrsg): No Assessment/Plan Chief Complaint/Hosp Course Status post angiogram and iliac artery angioplasty and stent placement SP angioplasty Right saphenous vein graft Patient with strong Doppler signals over the dorsalis pedis artery We will continue Plavix Patient will need left lower extremity intervention after she has recovered from the current procedure We will remove permacath on Sunday Discussed with Dr. Benson His cussed with the daughter Problems: Subjective 24 Hr Interval Summary Constitutional: improved Pain Control: mild Exam/Review of Systems Vital Signs Vitals Vital Signs Date Time Temp Pulse Resp B/P Pulse Ox O2 Delivery O2 Flow Rate FiO2 10/08/16 12:29 75 10/08/16 11:30 97.8 18 115/55 97 10/04/16 22:00 Room Air Intake and Output 10/07/16 10/07/16 10/08/16 15:00 23:00 07:00 Intake Total 680 ml 350 ml Balance 680 ml 350 ml Exam ENMT: mucosa pink and moist, nl external ears & nose, nl lips & teeth, nl nasal mucosa & septum Neck: non-tender, supple Respiratory: clear to auscultation, normal air movement Cardiovascular: nl pulses, regular rate and rhythm Gastrointestinal: nl liver, spleen, non-tender, soft Results Result Diagram: 10/06/16 0547 10/06/16 0547 BALDOMERO PALOMO MD Oct 08, 2016 14:50
[2016-10-08] MEDS: LEVOFLOXACIN 250 MG TAB PO SCH (15:15)
--- NOTE | 2016-10-08 16:17 | CONS ---
Date/Time of Note Date/Time of Note DATE: 10/08/16 TIME: 16:16 Assessment/Plan Assessment/Plan Additional Assessment/Plan 1. Cardiomyopathy with decreased left ventricular ejection fraction, status post congestive heart failure- good fluid status now. 2. Hypertension, under reasonable control- STABLE 3. Dyslipidemia. 4. History of permanent pacemaker - stable function - good function. 5. Peripheral arterial disease with nonhealing lower extremity ulcerations - s /p PCI - pain, but not ischemic. 6. Status post prior peripheral bypass surgery. 7. Coronary artery disease, status post coronary artery bypass graft surgery.NO CP noted. 8. Diabetes mellitus. 9. End-stage renal disease, on hemodialysis.Rx as needed. 10. Anemia. 11. Hyponatremia. Consultation Date/Type/Reason Admit Date/Time Sep 26, 2016 at 16:53 Type of Consultation: id Referring Provider: BRANDI ERICKSON DO 24 HR Interval Summary Free Text/Dictation No acute events - pain controlled - con''t med rx. ROS: No fever, no chills, no nausea, no vomiting, no diarrhea/constipation No recent weight changes No chest pain, no PND, no orthopnea No dizziness, blurred vision No thirst, no heat or cold intolerance Exam/Review of Systems Vital Signs Vitals Vital Signs Date Time Temp Pulse Resp B/P Pulse Ox O2 Delivery O2 Flow Rate FiO2 10/08/16 16:10 70 10/08/16 14:55 98.0 20 98/48 96 10/04/16 22:00 Room Air Intake and Output 10/07/16 10/07/16 10/08/16 15:00 23:00 07:00 Intake Total 680 ml 350 ml Balance 680 ml 350 ml Exam General: WN/WD/NAD, AOx3 HEENT: Unicetric/atraumatic/EOMI (follow commands) NECK: JVD elevated, no thyromegaly Lymph: no lymphadenopathy HEART: regular with no S3, II/ systolic murmur at apex LUNGS: Coarse sounds ABD: soft, NT, ND, +BS : Intact Neuro: non focal SKIN: chronic changes EXT: trace edema, severe PAd - warm LE Results Result Diagram: 10/06/16 0547 10/06/16 0547 Results 24 hrs Laboratory Tests Test 10/07/16 17:46 10/07/16 21:48 10/08/16 08:10 10/08/16 12:40 Bedside Glucose 135 139 99 110 Medications Medications Current Medications Ferrous Sulfate (Ferrous Sulfate (Ec)) 325 mg DAILY PO Last administered on 09:20; Admin Dose 325 MG; Start 09/27/16 at 09:00 Hydralazine HCl (Apresoline) 10 mg BID PO Last administered on 10/07/16 21:46 ; Admin Dose 10 MG; Start 09/27/16 at 09:00 Metoprolol Succinate (Toprol Xl) 25 mg DAILY PO Last administered on 10/08/16 09:20; Admin Dose 25 MG; Start 09/27/16 at 09:00 Multivit/Ca Carb/ B Cmplx/FA/Prenat (Billie-Roge) 1 tab DAILY PO Last administered on 10/08/16 09:19; Admin Dose 1 TAB; Start 09/27/16 at 09:00 Polyethylene Glycol (Miralax) 17 gm DAILY PO Last administered on 10/08/16 09: 20; Admin Dose 17 GM; Start 09/27/16 at 09:00 Pantoprazole (Protonix Tab) 40 mg DAILY@06 PO Last administered on 10/08/16 07 :02; Admin Dose 40 MG; Start 09/27/16 at 06:00 Zolpidem Tartrate (Ambien) 5 mg HS PRN PO INSOMNIA; Start 09/27/16 at 01:00 Acetaminophen (Tylenol Tab) 650 mg Q6H PRN PO PAIN AND OR ELEVATED TEMP; Start 09/27/16 at 01:00 Ondansetron HCl (Zofran Inj) 4 mg Q6H PRN IV NAUSEA AND/OR VOMITING Last administered on 10/06/16 08:59; Admin Dose 4 MG; Start 09/27/16 at 01:00 IV Flush (NS 10 ml) 3 ml Q8 IV Last administered on 10/08/16 06:00; Admin Dose 3 ML; Start 09/27/16 at 06:00 Diagnostic Test (Pha) (Accu-Chek) 1 ea 02 XX Last administered on 10/02/16 02: 12; Admin Dose 1 EA; Start 09/28/16 at 02:00 Miscellaneous Information 1 ea NOTE XX ; Start 09/27/16 at 07:30 Glucose (Glutose) 15 gm Q15M PRN PO DECREASED GLUCOSE; Start 09/27/16 at 07:30 Glucose (Glutose) 22.5 gm Q15M PRN PO DECREASED GLUCOSE; Start 09/27/16 at 07: 30 Dextrose (D50w Syringe) 25 ml Q15M PRN IV DECREASED GLUCOSE; Start 09/27/16 at 07:30 Dextrose (D50w Syringe) 50 ml Q15M PRN IV DECREASED GLUCOSE; Start 09/27/16 at 07:30 Glucagon (Glucagen) 1 mg Q15M PRN IM DECREASED GLUCOSE; Start 09/27/16 at 07:30 Glucose (Glutose) 15 gm Q15M PRN BUCCAL DECREASED GLUCOSE; Start 09/27/16 at 07 :30 Acetaminophen/ Hydrocodone Bitart ([place] (10/325)) 1.5 tab Q8H PO Last administered on 10/08/16 07:03; Admin Dose 1.5 TAB; Start 09/27/16 at 15:30 Clonidine (Catapres) 0.1 mg Q6H PRN PO SBP>170; Start 09/27/16 at 12:00 Morphine Sulfate (morphine) 2 mg Q2H PRN IV PAIN Last administered on 12:05; Admin Dose 2 MG; Start 09/27/16 at 22:00 Mupirocin (Bactroban) 1 applic BID TOP Last administered on 10/08/16 09:20; Admin Dose 1 APPLIC; Start 09/28/16 at 21:00 Atorvastatin Calcium (Lipitor) 40 mg DAILY@21 PO Last administered on 21:46; Admin Dose 40 MG; Start 09/29/16 at 21:00 Levofloxacin (Levaquin) 250 mg Q48H PO Last administered on 10/08/16 15:15; Admin Dose 250 MG; Start 09/30/16 at 15:00 Aspirin (Aspirin) 81 mg DAILY PO Last administered on 10/08/16 09:20; Admin Dose 81 MG; Start 10/05/16 at 09:00 Clopidogrel Bisulfate 75 mg 75 mg DAILY PO Last administered on 10/08/16 09:20 ; Admin Dose 75 MG; Start 10/05/16 at 09:00 Vancomycin HCl (Vancocin) 250 ml @ 125 mls/hr Q96H IVPB Last administered on 7 /27/17at 18:39; Admin Dose 125 MLS/HR; Start 10/05/16 at 18:00 PEDRO LUIS HUTTON MD Oct 08, 2016 16:17
--- NOTE | 2016-10-08 17:15 | CONS ---
Date/Time of Note Date/Time of Note DATE: 10/08/16 TIME: 17:14 Assessment/Plan Assessment/Plan Chief Complaint/Hosp Course Anemia complex multifactorial cont to monitor blood count cLosely observe for bleeding and hemolysis transfuse as needed THROMBOCYTOPENIA INTERMITTENT FLUCTUATING MONITOR CLOSELY SL WORSE POSTOP NO NEEDS IN TRANSFUSION Cardiomyopathy with low EF HTN HL cad Pad s/p peripheral bypass ESRD on HD Non-healing LE wound s/p R ext illiac sttenting and now s/p BRA[employer]RO[employer] to graft now patent PPM Hyponatremia Hypothyroid Problems: Consultation Date/Type/Reason Admit Date/Time Sep 26, 2016 at 16:53 [facility] Referring Provider: BRANDI ERICKSON DO 24 HR Interval Summary Free Text/Dictation ALL NOTED Exam/Review of Systems Vital Signs Vitals Vital Signs Date Time Temp Pulse Resp B/P Pulse Ox O2 Delivery O2 Flow Rate FiO2 10/08/16 16:10 70 10/08/16 14:55 98.0 20 98/48 96 10/04/16 22:00 Room Air Intake and Output 10/07/16 10/07/16 10/08/16 15:00 23:00 07:00 Intake Total 680 ml 350 ml Balance 680 ml 350 ml Exam General: WN/WD/NAD, AOx 3 HEENT: Unicetric/atraumatic/EOMI (follow commands) NECK: JVD elevated, no thyromegaly Lymph: no lymphadenopathy HEART: regular with no S3, II/ systolic murmur at apex LUNGS: Coarse sounds ABD: soft, NT, ND, +BS : Intact Neuro: non focal SKIN: chronic changes EXT: trace edema, PAD, erythema - + Pain Results Result Diagram: 10/06/16 0547 10/06/16 0547 Results 24 hrs Laboratory Tests Test 10/07/16 17:46 10/07/16 21:48 10/08/16 08:10 10/08/16 12:40 Bedside Glucose 135 139 99 110 Medications Medications Current Medications Ferrous Sulfate (Ferrous Sulfate (Ec)) 325 mg DAILY PO Last administered on 09:20; Admin Dose 325 MG; Start 09/27/16 at 09:00 Hydralazine HCl (Apresoline) 10 mg BID PO Last administered on 10/07/16 21:46 ; Admin Dose 10 MG; Start 09/27/16 at 09:00 Metoprolol Succinate (Toprol Xl) 25 mg DAILY PO Last administered on 10/08/16 09:20; Admin Dose 25 MG; Start 09/27/16 at 09:00 Multivit/Ca Carb/ B Cmplx/FA/Prenat (Billie-Roge) 1 tab DAILY PO Last administered on 10/08/16 09:19; Admin Dose 1 TAB; Start 09/27/16 at 09:00 Polyethylene Glycol (Miralax) 17 gm DAILY PO Last administered on 10/08/16 09: 20; Admin Dose 17 GM; Start 09/27/16 at 09:00 Pantoprazole (Protonix Tab) 40 mg DAILY@06 PO Last administered on 10/08/16 07 :02; Admin Dose 40 MG; Start 09/27/16 at 06:00 Zolpidem Tartrate (Ambien) 5 mg HS PRN PO INSOMNIA; Start 09/27/16 at 01:00 Acetaminophen (Tylenol Tab) 650 mg Q6H PRN PO PAIN AND OR ELEVATED TEMP; Start 09/27/16 at 01:00 Ondansetron HCl (Zofran Inj) 4 mg Q6H PRN IV NAUSEA AND/OR VOMITING Last administered on 10/06/16 08:59; Admin Dose 4 MG; Start 09/27/16 at 01:00 IV Flush (NS 10 ml) 3 ml Q8 IV Last administered on 10/08/16 06:00; Admin Dose 3 ML; Start 09/27/16 at 06:00 Diagnostic Test (Pha) (Accu-Chek) 1 ea 02 XX Last administered on 10/02/16 02: 12; Admin Dose 1 EA; Start 09/28/16 at 02:00 Miscellaneous Information 1 ea NOTE XX ; Start 09/27/16 at 07:30 Glucose (Glutose) 15 gm Q15M PRN PO DECREASED GLUCOSE; Start 09/27/16 at 07:30 Glucose (Glutose) 22.5 gm Q15M PRN PO DECREASED GLUCOSE; Start 09/27/16 at 07: 30 Dextrose (D50w Syringe) 25 ml Q15M PRN IV DECREASED GLUCOSE; Start 09/27/16 at 07:30 Dextrose (D50w Syringe) 50 ml Q15M PRN IV DECREASED GLUCOSE; Start 09/27/16 at 07:30 Glucagon (Glucagen) 1 mg Q15M PRN IM DECREASED GLUCOSE; Start 09/27/16 at 07:30 Glucose (Glutose) 15 gm Q15M PRN BUCCAL DECREASED GLUCOSE; Start 09/27/16 at 07 :30 Acetaminophen/ Hydrocodone Bitart ([place] (10/325)) 1.5 tab Q8H PO Last administered on 10/08/16 07:03; Admin Dose 1.5 TAB; Start 09/27/16 at 15:30 Clonidine (Catapres) 0.1 mg Q6H PRN PO SBP>170; Start 09/27/16 at 12:00 Morphine Sulfate (morphine) 2 mg Q2H PRN IV PAIN Last administered on 12:05; Admin Dose 2 MG; Start 09/27/16 at 22:00 Mupirocin (Bactroban) 1 applic BID TOP Last administered on 10/08/16 09:20; Admin Dose 1 APPLIC; Start 09/28/16 at 21:00 Atorvastatin Calcium (Lipitor) 40 mg DAILY@21 PO Last administered on 21:46; Admin Dose 40 MG; Start 09/29/16 at 21:00 Levofloxacin (Levaquin) 250 mg Q48H PO Last administered on 10/08/16 15:15; Admin Dose 250 MG; Start 09/30/16 at 15:00 Aspirin (Aspirin) 81 mg DAILY PO Last administered on 10/08/16 09:20; Admin Dose 81 MG; Start 10/05/16 at 09:00 Clopidogrel Bisulfate 75 mg 75 mg DAILY PO Last administered on 10/08/16 09:20 ; Admin Dose 75 MG; Start 10/05/16 at 09:00 Vancomycin HCl (Vancocin) 250 ml @ 125 mls/hr Q96H IVPB Last administered on 18:39; Admin Dose 125 MLS/HR; Start 10/05/16 at 18:00 FABY HORN MD Oct 08, 2016 17:15
[2016-10-08] MEDS: ATORVASTATIN 40 MG TAB PO SCH (21:25)
[2016-10-09] VITALS (20 sets, daily range): BP systolic 94–139; BP diastolic 41–81; PULSE 70–78; RESP 16–20
[2016-10-09] MEDS: ACCU-CHEK XX SCH (01:41)
[2016-10-09] MEDS: LEVOTHYROXINE 88 MCG TAB PO SCH (06:10)
[2016-10-09] MEDS: PANTOPRAZOLE (EC) 40 MG TAB PO SCH (06:10)
[2016-10-09] MEDS: INSULIN ASPART [NOVOLOG] 3 ML PEN SC SCH ×4 (08:20→21:00)
[2016-10-09] MEDS: METOPROLOL (XL) 25 MG TAB PO SCH (09:00)
[2016-10-09] MEDS: FERROUS SULFATE (EC) 325 MG TAB PO SCH (09:24)
[2016-10-09] MEDS: MULTIVIT/CA CARB/B CMPLX/FA TAB PO SCH (09:25)
[2016-10-09] MEDS: HYDROCODONE/APAP (10/325) TAB PO SCH ×4 (09:26→23:52)
[2016-10-09] MEDS: ASPIRIN 81 MG TAB PO SCH (09:26)
[2016-10-09] MEDS: POLYETHYLENE GLYCOL 17 GM PACKET PO SCH (09:26)
[2016-10-09] MEDS: CLOPIDOGREL 75 MG TAB PO SCH (09:26)
[2016-10-09] MEDS: SEVELAMER 800 MG TAB PO SCH ×3 (09:26→17:19)
[2016-10-09] MEDS: MUPIROCIN 2% 22 GM OINT TOP SCH ×2 (09:27→21:13)
--- NOTE | 2016-10-09 10:20 | PN ---
Date/Time of Note Date/Time of Note DATE: 10/09/16 TIME: 10:20 Assessment/Plan Lines/Catheters IV Catheter Type (from Nrsg): Saline Lock Tolbert in Place (from Nrsg): No Assessment/Plan Chief Complaint/Hosp Course Status post angiogram and iliac artery angioplasty and stent placement SP angioplasty Right saphenous vein graft Patient with strong Doppler signals over the dorsalis pedis artery We will continue Plavix Patient will need left lower extremity intervention after she has recovered from the current procedure We will for LLE Angioplasty and remove permacath on tomorrow Discussed with Dr. Benson His cussed with the daughter Problems: Subjective 24 Hr Interval Summary Constitutional: improved Pain Control: mild Exam/Review of Systems Vital Signs Vitals Vital Signs Date Time Temp Pulse Resp B/P Pulse Ox O2 Delivery O2 Flow Rate FiO2 10/09/16 09:35 78 10/09/16 09:05 18 10/09/16 07:36 98.1 122/81 97 Intake and Output 10/08/16 10/08/16 10/09/16 15:00 23:00 07:00 Intake Total 800 ml Balance 800 ml Exam Eyes: EOMI, nl conjunctiva, nl lids, nl sclera ENMT: mucosa pink and moist, nl external ears & nose, nl lips & teeth, nl nasal mucosa & septum Neck: non-tender, supple Respiratory: clear to auscultation, normal air movement Cardiovascular: nl pulses, regular rate and rhythm Results Result Diagram: 10/06/16 0547 10/06/16 0547 BALDOMERO PALOMO MD Oct 09, 2016 10:20
--- NOTE | 2016-10-09 11:02 | PN ---
DATE: 10/09/2016 SUBJECTIVE DATA: The patient is stable. No acute events overnight. No fevers, chills, nausea, vomiting. OBJECTIVE DATA: VITAL SIGNS: Blood pressure 122/71, respirations 20, pulse 79, temperature 98.1. HEENT: Head is normocephalic. NECK: Supple. HEART: Regular rate. LUNGS: Diminished breath sounds at the base. ABDOMEN: Soft, nontender to palpation. No guarding. EXTREMITIES: Positive dry gangrene of the right heel. DERMATOLOGIC: Clear, no rashes. MUSCULOSKELETAL: No joint effusion. NEUROLOGIC: Unchanged exam. LABORATORY AND DIAGNOSTIC DATA: Has been reviewed. No new labs. ASSESSMENT AND PLAN: 1. Right lower extremity gangrene. The patient is status post- angiogram and stenting of iliac artery. The patient is currently stable. Continue wound care. 2. Peripheral vascular disease. The patient is currently receiving medical measures, as stated above. The patient may require future angiogram. 3. End-stage renal disease. Plan for dialysis today for 3 hours, 3K bath, calcium 2.5. 4. Hyponatremia. Continue dialysis on a 140 sodium bath. 5. Cardiomyopathy, coronary disease. Continue medical management. 6. Anemia. Monitor hemoglobin and hematocrit levels. Continue Epogen with dialysis. 7. Diabetes. Continue Accu-Chek and sliding scale. 8. Hypertension. Continue current blood pressure regimen. 9. Hypothyroidism. Continue Synthroid. 10. History of hip fracture. 11. Mineral bone disorder. Continue monitor calcium and phosphorus levels. 12. Debility. Continue physical therapy and occupational therapy. 13. Access: Patient's PermCath to be discontinued. AV fistula is working appropriately. Dictated By: Ihsan Johns DO /[email or web address] /Document#: [id number]
--- NOTE | 2016-10-09 11:26 | PN ---
DATE: 09/30/2016 SUBJECTIVE DATA: The patient yesterday had angio with stent placement in the right iliac artery. Procedure was performed by Dr. Nunez. No other events noted. PHYSICAL EXAMINATION: VITALS SIGNS: Blood pressure 132/60, respirations 18, pulse 85, temperature 98 degrees. HEENT: Head is normocephalic. NECK: Supple. HEART: Regular rate. LUNGS: Diminished breath sounds at the bases. ABDOMEN: Soft, nontender to palpation. No rebound or guarding. EXTREMITIES: Negative for clubbing, cyanosis. Positive edema. Positive wounds of gangrene on the right heel. SKIN: No rashes. MUSCULOSKELETAL: No joint effusion. The patient's medications reviewed. LABORATORY AND DIAGNOSTIC DATA: Sodium 137, potassium 3.7, BUN 24, creatinine 2.30. White count 6.8, hemoglobin 10.8, hematocrit 33.3, platelet count 103,000. ASSESSMENT AND PLAN: 1. Right lower extremity gangrene. The patient is status post angio with stent placement. Continue to monitor. Follow up with Surgery for further recommendations. 2. End-stage renal disease. Plan for hemodialysis on Sunday. 3. Coronary artery disease, history of cardiomyopathy. Currently stable. 4. Anemia. Continue to monitor hemoglobin and hematocrit levels. 5. Diabetes. Continue Accu-Cheks and sliding scale. 6. Hypertension. Continue current blood pressure regimen. 7. Hypothyroidism. Continue Synthroid. 8. Status post right hip fracture. Dictated By: Ihsan Johns DO /[email or web address] /Document#: [id number]
--- NOTE | 2016-10-09 11:33 | CONS ---
Date/Time of Note Date/Time of Note DATE: 10/09/16 TIME: 11:30 Assessment/Plan Assessment/Plan Chief Complaint/Hosp Course IMP: 1.Cardiomyopathy with low EF 2.HTN-well controlled 3.HL 4.cad 5. Pad s/p peripheral bypass 6. ESRD on HD 7. Non-healing LE wound s/p R ext illiac sttenting and now s/p ADJUNCT LATIN PROFESSOR to graft now patent 8. PPM 9. Anemia 10. Hyponatremia 11.Hypothyroid Recc: -Tele -serial ecg's -Continue BB/hydralazine -Continue asa/plvix -Continue statin -HD for volume removal -Continue abx's -Local wound care -Pain control -Possible further debridement Problems: Consultation Date/Type/Reason Admit Date/Time Sep 26, 2016 at 16:53 Initial Consult Date 09/27/2016 Type of Consultation: cardiology Reason for Consultation cardiomyopathy Referring Provider: BRANDI ERICKSON DO Exam/Review of Systems Vital Signs Vitals Vital Signs Date Time Temp Pulse Resp B/P Pulse Ox O2 Delivery O2 Flow Rate FiO2 10/09/16 11:06 98.2 70 16 117/46 97 Intake and Output 10/08/16 10/08/16 10/09/16 15:00 23:00 07:00 Intake Total 800 ml Balance 800 ml Exam Review of Systems: CONSTITUTIONAL: No fevers, chills. PULMONARY: No sob CARDIOVASCULAR: No chest pain/palpitations GASTROINTESTINAL: No nausea/vomiting. GENITOURINARY: No hematuria/dysuria. MUSCULOSKELETAL: mild pain in foot PSYCHIATRIC: The patient denies depression. NEUROLOGIC: lethargic Constitutional: other (sleeping) Psych: no complaints Head: normocephalic ENMT: mucosa pink and moist Neck: jvd (9 cm water), supple Respiratory: diminished breath sounds (at bases/B) Cardiovascular: regular rate and rhythm Gastrointestinal: non-tender, soft Musculoskeletal: muscle weakness (generalized) Extremities: edema (none) Neurological: other (No focal deficits) Results Result Diagram: 10/06/16 0547 10/06/16 0547 Results 24 hrs Laboratory Tests Test 10/08/16 12:40 10/08/16 17:46 10/08/16 21:21 10/09/16 08:31 Bedside Glucose 110 96 105 84 Medications Medications Current Medications Ferrous Sulfate (Ferrous Sulfate (Ec)) 325 mg DAILY PO Last administered on 09:24; Admin Dose 325 MG; Start 09/27/16 at 09:00 Hydralazine HCl (Apresoline) 10 mg BID PO Last administered on 10/07/16 21:46 ; Admin Dose 10 MG; Start 09/27/16 at 09:00 Metoprolol Succinate (Toprol Xl) 25 mg DAILY PO Last administered on 10/08/16 09:20; Admin Dose 25 MG; Start 09/27/16 at 09:00 Multivit/Ca Carb/ B Cmplx/FA/Prenat (Billie-Roge) 1 tab DAILY PO Last administered on 10/09/16 09:25; Admin Dose 1 TAB; Start 09/27/16 at 09:00 Polyethylene Glycol (Miralax) 17 gm DAILY PO Last administered on 10/09/16 09: 26; Admin Dose 17 GM; Start 09/27/16 at 09:00 Pantoprazole (Protonix Tab) 40 mg DAILY@06 PO Last administered on 10/09/16 06 :10; Admin Dose 40 MG; Start 09/27/16 at 06:00 Zolpidem Tartrate (Ambien) 5 mg HS PRN PO INSOMNIA; Start 09/27/16 at 01:00 Acetaminophen (Tylenol Tab) 650 mg Q6H PRN PO PAIN AND OR ELEVATED TEMP; Start 09/27/16 at 01:00 Ondansetron HCl (Zofran Inj) 4 mg Q6H PRN IV NAUSEA AND/OR VOMITING Last administered on 10/06/16 08:59; Admin Dose 4 MG; Start 09/27/16 at 01:00 IV Flush (NS 10 ml) 3 ml Q8 IV Last administered on 10/09/16 06:10; Admin Dose 3 ML; Start 09/27/16 at 06:00 Diagnostic Test (Pha) (Accu-Chek) 1 ea 02 XX Last administered on 10/02/16 02: 12; Admin Dose 1 EA; Start 09/28/16 at 02:00 Miscellaneous Information 1 ea NOTE XX ; Start 09/27/16 at 07:30 Glucose (Glutose) 15 gm Q15M PRN PO DECREASED GLUCOSE; Start 09/27/16 at 07:30 Glucose (Glutose) 22.5 gm Q15M PRN PO DECREASED GLUCOSE; Start 09/27/16 at 07: 30 Dextrose (D50w Syringe) 25 ml Q15M PRN IV DECREASED GLUCOSE; Start 09/27/16 at 07:30 Dextrose (D50w Syringe) 50 ml Q15M PRN IV DECREASED GLUCOSE; Start 09/27/16 at 07:30 Glucagon (Glucagen) 1 mg Q15M PRN IM DECREASED GLUCOSE; Start 09/27/16 at 07:30 Glucose (Glutose) 15 gm Q15M PRN BUCCAL DECREASED GLUCOSE; Start 09/27/16 at 07 :30 Acetaminophen/ Hydrocodone Bitart ([place] ()) 1.5 tab Q8H PO Last administered on 10/09/16 09:26; Admin Dose 1.5 TAB; Start 09/27/16 at 15:30 Clonidine (Catapres) 0.1 mg Q6H PRN PO SBP>170; Start 09/27/16 at 12:00 Morphine Sulfate (morphine) 2 mg Q2H PRN IV PAIN Last administered on 12:05; Admin Dose 2 MG; Start 09/27/16 at 22:00 Mupirocin (Bactroban) 1 applic BID TOP Last administered on 10/09/16 09:27; Admin Dose 1 APPLIC; Start 09/28/16 at 21:00 Atorvastatin Calcium (Lipitor) 40 mg DAILY@21 PO Last administered on 21:25; Admin Dose 40 MG; Start 09/29/16 at 21:00 Levofloxacin (Levaquin) 250 mg Q48H PO Last administered on 10/08/16 15:15; Admin Dose 250 MG; Start 09/30/16 at 15:00 Aspirin (Aspirin) 81 mg DAILY PO Last administered on 10/09/16 09:26; Admin Dose 81 MG; Start 10/05/16 at 09:00 Clopidogrel Bisulfate 75 mg 75 mg DAILY PO Last administered on 10/09/16 09:26 ; Admin Dose 75 MG; Start 10/05/16 at 09:00 Vancomycin HCl (Vancocin) 250 ml @ 125 mls/hr Q96H IVPB Last administered on 18:39; Admin Dose 125 MLS/HR; Start 10/05/16 at 18:00 YI RODRIGUEZ 31, 2017 11:33
[2016-10-09] MEDS ORDERED: morphine 4 MG/ML VIAL IV PRN (14:30)
--- NOTE | 2016-10-09 14:37 | CONS ---
Date/Time of Note Date/Time of Note DATE: 10/09/16 TIME: 14:36 Assessment/Plan Assessment/Plan Chief Complaint/Hosp Course ID PROGRESS NOTE TOTAL ABX DAY # => Levaquin +Vanco IV post HD 24H INTERVAL SUMMARY * Resting -- HD today; Per RN pt will be having an Angioplasty done tomorrow 10/10. * No fevers, VSS, WBC normalized PHYSICAL EXAMINATION: GENERAL: 75 yo F HEENT: Unremarkable NECK: Supple, trachea midline. CHEST: Rise symmetrical without dyspnea HEART: RRR ABDOMEN: Soft, NT EXTREMITIES: Warm, gangrenous changes toes, DSG C/.D/I ID ASSESSMENT: 75 yo F w/ 1. s/p Sepsis with staph bacteremia==> Staph "CoNS" 1/2 bottles, possibly a contaminated sample 2. 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 Severe peripheral arterial disease, * s/p 09/29/16 angiogram and iliac artery angioplasty and stent placement * s/p 10/04/16 AUTOMOTIVE WORKER to graft now patent -> started on Plavix 4. End-stage renal disease, hemodialysis dependent * Left upper extremity AV fistula 5. DM w/complications of DM polyneuropathies: Nephro, Peripheral, Autonomic 6. CAD, w/Hx cardiomyopathy, hx of CABG, hx of non-ST elevation myocardial infarction type 2 7. Anemia of chronic disease, Epogen (+)MRSA Nares-> Bactroban CURRENT ABX: Levaquin +Vanco IV post HD ID RECOMMENDATIONS=> Continue current plan: 1. Per Vascular -> Patient will need left lower extremity intervention after she has recovered from the current procedures * Per RN pt will be having an Angioplasty done tomorrow 10/10. 2. When cleared for DC => Patient may DC on current ABX Vanco IV 1GM Q96H to be given during HD w/continued dose per pharmacy; and Levaquin 250mg po Q48H x 28 days * Unknown date of future intervention, best to send her out with adequate ABX supply . . Problems: Consultation Date/Type/Reason Admit Date/Time Sep 26, 2016 at 16:53 Type of Consultation: ID Referring Provider: BRANDI ERICKSON DO Exam/Review of Systems Vital Signs Vitals Vital Signs Date Time Temp Pulse Resp B/P Pulse Ox O2 Delivery O2 Flow Rate FiO2 10/09/16 12:08 71 10/09/16 12:05 16 10/09/16 11:06 98.2 117/46 97 Intake and Output 10/08/16 10/08/16 10/09/16 15:00 23:00 07:00 Intake Total 800 ml Balance 800 ml Results Result Diagram: 10/06/16 0547 10/06/16 0547 Results 24 hrs Laboratory Tests Test 10/08/16 17:46 10/08/16 21:21 10/09/16 08:31 10/09/16 11:56 Bedside Glucose 96 105 84 123 Medications Medications Current Medications Ferrous Sulfate (Ferrous Sulfate (Ec)) 325 mg DAILY PO Last administered on 09:24; Admin Dose 325 MG; Start 09/27/16 at 09:00 Hydralazine HCl (Apresoline) 10 mg BID PO Last administered on 10/07/16 21:46 ; Admin Dose 10 MG; Start 09/27/16 at 09:00 Metoprolol Succinate (Toprol Xl) 25 mg DAILY PO Last administered on 10/08/16 09:20; Admin Dose 25 MG; Start 09/27/16 at 09:00 Multivit/Ca Carb/ B Cmplx/FA/Prenat (Billie-Roge) 1 tab DAILY PO Last administered on 10/09/16 09:25; Admin Dose 1 TAB; Start 09/27/16 at 09:00 Polyethylene Glycol (Miralax) 17 gm DAILY PO Last administered on 10/09/16 09: 26; Admin Dose 17 GM; Start 09/27/16 at 09:00 Pantoprazole (Protonix Tab) 40 mg DAILY@06 PO Last administered on 10/09/16 06 :10; Admin Dose 40 MG; Start 09/27/16 at 06:00 Zolpidem Tartrate (Ambien) 5 mg HS PRN PO INSOMNIA; Start 09/27/16 at 01:00 Acetaminophen (Tylenol Tab) 650 mg Q6H PRN PO PAIN AND OR ELEVATED TEMP; Start 09/27/16 at 01:00 Ondansetron HCl (Zofran Inj) 4 mg Q6H PRN IV NAUSEA AND/OR VOMITING Last administered on 10/06/16 08:59; Admin Dose 4 MG; Start 09/27/16 at 01:00 IV Flush (NS 10 ml) 3 ml Q8 IV Last administered on 10/09/16 14:12; Admin Dose 3 ML; Start 09/27/16 at 06:00 Diagnostic Test (Pha) (Accu-Chek) 1 ea 02 XX Last administered on 10/02/16 02: 12; Admin Dose 1 EA; Start 09/28/16 at 02:00 Miscellaneous Information 1 ea NOTE XX ; Start 09/27/16 at 07:30 Glucose (Glutose) 15 gm Q15M PRN PO DECREASED GLUCOSE; Start 09/27/16 at 07:30 Glucose (Glutose) 22.5 gm Q15M PRN PO DECREASED GLUCOSE; Start 09/27/16 at 07: 30 Dextrose (D50w Syringe) 25 ml Q15M PRN IV DECREASED GLUCOSE; Start 09/27/16 at 07:30 Dextrose (D50w Syringe) 50 ml Q15M PRN IV DECREASED GLUCOSE; Start 09/27/16 at 07:30 Glucagon (Glucagen) 1 mg Q15M PRN IM DECREASED GLUCOSE; Start 09/27/16 at 07:30 Glucose (Glutose) 15 gm Q15M PRN BUCCAL DECREASED GLUCOSE; Start 09/27/16 at 07 :30 Acetaminophen/ Hydrocodone Bitart ([place] (10/325)) 1.5 tab Q8H PO Last administered on 10/09/16 09:26; Admin Dose 1.5 TAB; Start 09/27/16 at 15:30 Clonidine (Catapres) 0.1 mg Q6H PRN PO SBP>170; Start 09/27/16 at 12:00 Mupirocin (Bactroban) 1 applic BID TOP Last administered on 10/09/16 09:27; Admin Dose 1 APPLIC; Start 09/28/16 at 21:00 Atorvastatin Calcium (Lipitor) 40 mg DAILY@21 PO Last administered on 21:25; Admin Dose 40 MG; Start 09/29/16 at 21:00 Levofloxacin (Levaquin) 250 mg Q48H PO Last administered on 10/08/16 15:15; Admin Dose 250 MG; Start 09/30/16 at 15:00 Aspirin (Aspirin) 81 mg DAILY PO Last administered on 10/09/16 09:26; Admin Dose 81 MG; Start 10/05/16 at 09:00 Clopidogrel Bisulfate 75 mg 75 mg DAILY PO Last administered on 10/08/16 09:20 ; Admin Dose 75 MG; Start 10/05/16 at 09:00 Vancomycin HCl (Vancocin) 250 ml @ 125 mls/hr Q96H IVPB Last administered on 18:39; Admin Dose 125 MLS/HR; Start 10/05/16 at 18:00 Morphine Sulfate (morphine) 2 mg Q2H PRN IV PAIN; Start 10/09/16 at 14:30 QUINN SINGH NP Oct 09, 2016 14:37
--- NOTE | 2016-10-09 17:27 | CONS ---
Date/Time of Note Date/Time of Note DATE: 10/09/16 TIME: 17:26 Assessment/Plan Assessment/Plan Chief Complaint/Hosp Course Anemia complex multifactorial cont to monitor blood count cLosely observe for bleeding and hemolysis transfuse as needed THROMBOCYTOPENIA INTERMITTENT FLUCTUATING MONITOR CLOSELY SL WORSE POSTOP NO NEEDS IN TRANSFUSION Cardiomyopathy with low EF HTN HL cad Pad s/p peripheral bypass ESRD on HD Non-healing LE wound s/p R ext illiac sttenting and now s/p SALVAGE MECHANIC to graft now patent PPM Hyponatremia Hypothyroid Problems: Consultation Date/Type/Reason Admit Date/Time Sep 26, 2016 at 16:53 [facility] Referring Provider: BRANDI ERICKSON DO 24 HR Interval Summary Free Text/Dictation ALL NOTED Exam/Review of Systems Vital Signs Vitals Vital Signs Date Time Temp Pulse Resp B/P Pulse Ox O2 Delivery O2 Flow Rate FiO2 10/09/16 16:01 73 10/09/16 15:50 98.2 16 118/55 97 Intake and Output 10/08/16 10/08/16 10/09/16 15:00 23:00 07:00 Intake Total 800 ml Balance 800 ml Exam General: WN/WD/NAD, AOx 3 HEENT: Unicetric/atraumatic/EOMI (follow commands) NECK: JVD elevated, no thyromegaly Lymph: no lymphadenopathy HEART: regular with no S3, II/ systolic murmur at apex LUNGS: Coarse sounds ABD: soft, NT, ND, +BS : Intact Neuro: non focal SKIN: chronic changes EXT: trace edema, PAD, erythema - + Pain Results Result Diagram: 10/06/16 0547 10/06/16 0547 Results 24 hrs Laboratory Tests Test 10/08/16 17:46 10/08/16 21:21 10/09/16 08:31 10/09/16 11:56 Bedside Glucose 96 105 84 123 Test 10/09/16 17:18 Bedside Glucose 147 Medications Medications Current Medications Ferrous Sulfate (Ferrous Sulfate (Ec)) 325 mg DAILY PO Last administered on 09:24; Admin Dose 325 MG; Start 09/27/16 at 09:00 Hydralazine HCl (Apresoline) 10 mg BID PO Last administered on 10/07/16 21:46 ; Admin Dose 10 MG; Start 09/27/16 at 09:00 Metoprolol Succinate (Toprol Xl) 25 mg DAILY PO Last administered on 10/08/16 09:20; Admin Dose 25 MG; Start 09/27/16 at 09:00 Multivit/Ca Carb/ B Cmplx/FA/Prenat ([place]ie-Roge) 1 tab DAILY PO Last administered on 10/09/16 09:25; Admin Dose 1 TAB; Start 09/27/16 at 09:00 Polyethylene Glycol (Miralax) 17 gm DAILY PO Last administered on 10/09/16 09: 26; Admin Dose 17 GM; Start 09/27/16 at 09:00 Pantoprazole (Protonix Tab) 40 mg DAILY@06 PO Last administered on 10/09/16 06 :10; Admin Dose 40 MG; Start 09/27/16 at 06:00 Zolpidem Tartrate (Ambien) 5 mg HS PRN PO INSOMNIA; Start 09/27/16 at 01:00 Acetaminophen (Tylenol Tab) 650 mg Q6H PRN PO PAIN AND OR ELEVATED TEMP; Start 09/27/16 at 01:00 Ondansetron HCl (Zofran Inj) 4 mg Q6H PRN IV NAUSEA AND/OR VOMITING Last administered on 10/06/16 08:59; Admin Dose 4 MG; Start 09/27/16 at 01:00 IV Flush (NS 10 ml) 3 ml Q8 IV Last administered on 10/09/16 14:12; Admin Dose 3 ML; Start 09/27/16 at 06:00 Diagnostic Test (Pha) (Accu-Chek) 1 ea 02 XX Last administered on 10/02/16 02: 12; Admin Dose 1 EA; Start 09/28/16 at 02:00 Miscellaneous Information 1 ea NOTE XX ; Start 09/27/16 at 07:30 Glucose (Glutose) 15 gm Q15M PRN PO DECREASED GLUCOSE; Start 09/27/16 at 07:30 Glucose (Glutose) 22.5 gm Q15M PRN PO DECREASED GLUCOSE; Start 09/27/16 at 07: 30 Dextrose (D50w Syringe) 25 ml Q15M PRN IV DECREASED GLUCOSE; Start 09/27/16 at 07:30 Dextrose (D50w Syringe) 50 ml Q15M PRN IV DECREASED GLUCOSE; Start 09/27/16 at 07:30 Glucagon (Glucagen) 1 mg Q15M PRN IM DECREASED GLUCOSE; Start 09/27/16 at 07:30 Glucose (Glutose) 15 gm Q15M PRN BUCCAL DECREASED GLUCOSE; Start 09/27/16 at 07 :30 Acetaminophen/ Hydrocodone Bitart ([place] (10/325)) 1.5 tab Q8H PO Last administered on 10/09/16 09:26; Admin Dose 1.5 TAB; Start 09/27/16 at 15:30 Clonidine (Catapres) 0.1 mg Q6H PRN PO SBP>170; Start 09/27/16 at 12:00 Mupirocin (Bactroban) 1 applic BID TOP Last administered on 10/09/16 09:27; Admin Dose 1 APPLIC; Start 09/28/16 at 21:00 Atorvastatin Calcium (Lipitor) 40 mg DAILY@21 PO Last administered on 21:25; Admin Dose 40 MG; Start 09/29/16 at 21:00 Levofloxacin (Levaquin) 250 mg Q48H PO Last administered on 10/08/16 15:15; Admin Dose 250 MG; Start 09/30/16 at 15:00 Aspirin (Aspirin) 81 mg DAILY PO Last administered on 10/09/16 09:26; Admin Dose 81 MG; Start 10/05/16 at 09:00 Clopidogrel Bisulfate 75 mg 75 mg DAILY PO Last administered on 10/08/16 09:20 ; Admin Dose 75 MG; Start 10/05/16 at 09:00 Vancomycin HCl (Vancocin) 250 ml @ 125 mls/hr Q96H IVPB Last administered on 18:39; Admin Dose 125 MLS/HR; Start 10/05/16 at 18:00 Morphine Sulfate (morphine) 2 mg Q2H PRN IV PAIN; Start 10/09/16 at 14:30 FABY HORN MD Oct 09, 2016 17:27
[2016-10-09] MEDS: VANCOMYCIN 1 GM in NS 250 ML IVPB SCH (17:48)
[2016-10-09] MEDS: ATORVASTATIN 40 MG TAB PO SCH (21:20)
[2016-10-10] VITALS (39 sets, daily range): BP systolic 91–125; BP diastolic 39–66; PULSE 69–84; RESP 9–35
[2016-10-10] MEDS: ACCU-CHEK XX SCH (01:59)
[2016-10-10] MEDS: PANTOPRAZOLE (EC) 40 MG TAB PO SCH (06:00)
[2016-10-10] MEDS: LEVOTHYROXINE 88 MCG TAB PO SCH (06:35)
[2016-10-10] MEDS: HYDROCODONE/APAP (10/325) TAB PO SCH ×2 (06:35→17:55)
[2016-10-10 07:43] LABS: BASOPHILS % 0.3 % (0.0-2.0); EOSINOPHILS % 0.7 % (0.0-7.0); HEMOGLOBIN 9.8 g/dl (12.0-16.0); LYMPHOCYTES # 1.1 10^3/ul (0.8-2.9); MEAN CORPUSCULAR HEMOGLOBIN 28.9 pg (29.0-33.0); MEAN CORPUSCULAR HGB CONC 31.6 g/dl (32.0-37.0); MEAN CORPUSCULAR VOLUME 91.4 fl (82.0-101.0); MEAN PLATELET VOLUME 10.3 fl (7.4-10.4); MONOCYTE # 0.5 10^3/ul (0.3-0.9); MONOCYTES % 8.4 % (0.0-11.0); NEUTROPHIL # 4.2 10^3/ul (1.6-7.5); NEUTROPHILS % 71.1 % (39.0-77.0); NUCLEATED RED BLOOD CELLS% 0.3 /100WBC (0.0-0.0); PLATELET COUNT 104 10^3/UL (140-415); RED BLOOD COUNT 3.39 10^6/ul (4.20-5.40); RED CELL DISTRIBUTION WIDTH 19.6 % (11.5-14.5)
[2016-10-10] MEDS: SEVELAMER 800 MG TAB PO SCH ×3 (07:55→17:55)
[2016-10-10] MEDS: INSULIN ASPART [NOVOLOG] 3 ML PEN SC SCH ×4 (07:55→21:00)
[2016-10-10 08:01] LABS: CALCIUM 7.5 mg/dl (8.4-10.2); CREATININE 2.97 mg/dl (0.44-1.00); MAGNESIUM 1.8 mg/dl (1.7-2.5); PHOSPHORUS 3.5 mg/dl (2.5-4.9); POTASSIUM 3.6 mmol/L (3.5-5.1)
[2016-10-10] MEDS: POLYETHYLENE GLYCOL 17 GM PACKET PO SCH (09:00)
[2016-10-10] MEDS: MUPIROCIN 2% 22 GM OINT TOP SCH ×2 (09:00→20:59)
[2016-10-10] MEDS: ASPIRIN 81 MG TAB PO SCH (09:00)
[2016-10-10] MEDS: CLOPIDOGREL 75 MG TAB PO SCH (09:00)
[2016-10-10] MEDS: MULTIVIT/CA CARB/B CMPLX/FA TAB PO SCH (09:00)
[2016-10-10] MEDS: METOPROLOL (XL) 25 MG TAB PO SCH (09:00)
[2016-10-10] MEDS: FERROUS SULFATE (EC) 325 MG TAB PO SCH (09:00)
--- NOTE | 2016-10-10 10:42 | PN ---
DATE: 10/10/2016 SUBJECTIVE DATA: The patient is stable, pending PermCath removal today. Patient had hemodialysis yesterday, tolerated well. OBJECTIVE DATA: VITAL SIGNS: Blood pressure 121/61, respirations 18, pulse 60, temperature 98.0. HEENT: Head is normocephalic. NECK: Supple. HEART: Regular rate. LUNGS: Show diminished breath sounds at the base. ABDOMEN: Soft, nontender to palpation. No rebound or guarding. EXTREMITIES: Negative for clubbing, cyanosis, no edema. DERMATOLOGIC: No rashes. MUSCULOSKELETAL: Patient has noted dry gangrene over the left lower heel. NEUROLOGIC: No change in exam. MEDICATIONS: Reviewed. LABORATORY AND DIAGNOSTIC DATA: Shows sodium 132, potassium 3.6, BUN 24, creatinine 2.97. White count 6.9, hemoglobin 9.8, crit 31.0, platelet count is 104. ASSESSMENT AND PLAN: 1. Right lower extremity gangrene. The patient is status post angiogram, stent in the iliac artery, currently stable. Continue wound care. 2. Peripheral vascular disease. Continue current medical management as stated above. The patient may require future angiogram. 3. End-stage renal disease. Plan for dialysis tomorrow. 4. Hyponatremia. Continue dialysis 140 sodium bath. 5. Free water intake. 6. Cardiomyopathy/coronary artery disease. Continue medical management. 7. Anemia. Monitor H and H levels. Continue Epogen with dialysis. 8. Diabetes. Continue Accu-Chek and insulin sliding scale. 9. Hypertension. Continue current blood pressure regimen. 10. Hypothyroidism. Continue Synthroid. 11. Mineral bone disorder. Monitor calcium and phosphorus levels. 12. Debility. Continue PT/OT. 13. Gastrointestinal and deep venous thrombosis prophylaxis. Dictated By: Ihsan Johns DO /meenakshi/[place] /Document#: [id number]
[2016-10-10] MEDS ORDERED: FENTAnyl 50 MCG/ML VIAL ONE (12:09)
[2016-10-10] MEDS ORDERED: HEPARIN 1000 UNITS/ML 10 ML INJ ONE (12:09)
[2016-10-10] MEDS ORDERED: IODIXANOL LOCM 100 ML BTL ONE (12:09)
[2016-10-10] MEDS ORDERED: IOHEXOL 350MG/ML 50 ML BTL ONE (12:09)
[2016-10-10] MEDS ORDERED: LIDOCAINE 100 MG SYRINGE ONE (12:09)
[2016-10-10] MEDS ORDERED: MIDAZOLAM 1 MG/ML 2 ML INJ ONE (12:09)
--- NOTE | 2016-10-10 14:34 | OPR ---
Date/Time of Note Date/Time of Note DATE: 10/10/16 TIME: 14:29 Operative Report Procedure Date: Oct 10, 2016 Preoperative Diagnosis Severe peripheral vascular disease Postoperative Diagnosis Severe peripheral vascular disease Operation Performed Atherectomy left anterior tibial artery Atherectomy left popliteal artery Atherectomy left superficial femoral artery Angioplasty left anterior tibial artery to by 200 mm balloon and 3 x 200 mm balloon Angioplasty left popliteal artery and superficial femoral artery 6 x 200 mm balloon Left lower extremity third order to angiogram Interpositions version of the atherectomy and angioplasty Ultrasound guidance into the central artery Fluoroscopy Moderate sedation for 2 hours Surgeon: BALDOMERO PALOMO MD Anesthesia: MAC Estimated Blood Loss: minimal Specimens None Grafts/Implants None Complications: None Pt Condition Post Procedure: stable Disposition: PACU Indications Severe peripheral vascular disease Operative\Procedure Findings Patient was taken to the cardiac catheterization lab prepped and draped in usual sterile fashion timeout was called . 1% lidocaine was used throughout the operation for local anesthesia Under ultrasonic guidance access was gained the right common femoral artery 035 guidewire was advanced without any difficulties 5 [place] sheath was advanced over a guidewire rim catheter advanced over guidewire catheter advanced from the right to left over a guidewire which was then exchanged to a long 6 sheath Angiogram was done Using a [place] catheter 014 guidewire was advanced all the way down into the superficial femoral artery popliteal artery anterior tibial artery down to the ankle Patient was given 5000 units of IV heparin The left anterior tibial artery was angioplastied using a 2 x 200 and then 3 x 200 mm balloon Atherectomy of the superficial femoral artery popliteal artery and anterior tibial artery was done using the [place] atherectomy device Angioplasty was done again The final angiogram revealed completely open passageway from the common femoral artery down to the superficial femoral artery to the popliteal artery and anterior tibial artery all the way down to the ankle There was still a 50% stenosis at the junction of the anterior tibial artery at its ostial location We try to pass this again with the atherectomy device however he was he would not pass We decided not to proceed to avoid dissection all hardware was then removed and manual pressure was applied patient tolerated procedure BALDOMERO PALOMO MD Oct 10, 2016 14:34
[2016-10-10] MEDS ORDERED: LIDOCAINE 1% (MDV) 20 ML INJ ONE (16:24)
[2016-10-10] MEDS: LEVOFLOXACIN 250 MG TAB PO SCH (17:55)
[2016-10-10] MEDS: ATORVASTATIN 40 MG TAB PO SCH (20:58)
--- NOTE | 2016-10-10 21:04 | CONS ---
Date/Time of Note Date/Time of Note DATE: 10/10/16 TIME: 21:00 Assessment/Plan Assessment/Plan Chief Complaint/Hosp Course ID PROGRESS NOTE TOTAL ABX DAY # => Levaquin +Vanco IV post HD 24H INTERVAL SUMMARY * Stable resting no fevers, WBC normal * POD #0=> Procedure Date: Oct 10, 2016 Operation Performed Atherectomy left anterior tibial artery Atherectomy left popliteal artery Atherectomy left superficial femoral artery Angioplasty left anterior tibial artery to by 200 mm balloon and 3 x 200 mm balloon Angioplasty left popliteal artery and superficial femoral artery 6 x 200 mm balloon Moderate sedation for 2 hours PHYSICAL EXAMINATION: GENERAL: 75 yo F HEENT: Unremarkable NECK: Supple, trachea midline. CHEST: Rise symmetrical without dyspnea HEART: RRR ABDOMEN: Soft, NT EXTREMITIES: Warm, gangrenous changes toes, DSG C/.D/I ID ASSESSMENT: 75 yo F w/ . s/p Sepsis with staph bacteremia==> Staph "CoNS" 1/2 bottles, possibly a contaminated sample 2. 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 End-stage renal disease, hemodialysis dependent * Left upper extremity AV fistula 5. DM w/complications of DM polyneuropathies: Nephro, Peripheral, Autonomic 6. CAD, w/Hx cardiomyopathy, hx of CABG, hx of non-ST elevation myocardial infarction type 2 7. Anemia of chronic disease, Epogen (+)MRSA Nares-> Bactroban CURRENT ABX: Levaquin +Vanco IV post HD ID RECOMMENDATIONS=> Continue current plan: 1. Stable post-procedure today -- will follow up tomorrow. 2. When cleared for DC => Patient may DC on current ABX Vanco IV 1GM Q96H to be given during HD w/continued dose per pharmacy; and Levaquin 250mg po Q48H x 28 days * Unknown date of future intervention, best to send her out with adequate ABX supply . . Problems: Consultation Date/Type/Reason Admit Date/Time Sep 26, 2016 at 16:53 Type of Consultation: ID Referring Provider: BRANDI ERICKSON DO Exam/Review of Systems Vital Signs Vitals Vital Signs Date Time Temp Pulse Resp B/P Pulse Ox O2 Delivery O2 Flow Rate FiO2 10/10/16 20:41 98.1 85 20 97/52 98 10/10/16 17:02 Nasal Cannula 2.0 Intake and Output 10/09/16 10/09/16 10/10/16 15:00 23:00 07:00 Intake Total 400 ml 600 ml 400 ml Output Total 2400 ml Balance -2000 ml 600 ml 400 ml Results Result Diagram: 10/10/16 0705 10/10/16 0705 Results 24 hrs Laboratory Tests Test 10/09/16 21:11 10/10/16 07:05 10/10/16 08:32 10/10/16 17:47 Bedside Glucose 195 283 H 135 White Blood Count 6.0 # Red Blood Count 3.39 L Hemoglobin 9.8 L Hematocrit 31.0 L Mean Corpuscular Volume 91.4 Mean Corpuscular Hemoglobin 28.9 L Mean Corpuscular Hemoglobin Concent 31.6 L Red Cell Distribution Width 19.6 H Platelet Count 104 L Mean Platelet Volume 10.3 Neutrophils % 71.1 Lymphocytes % 19.0 Monocytes % 8.4 Eosinophils % 0.7 Basophils % 0.3 Nucleated Red Blood Cells % 0.3 H Neutrophils # 4.2 Lymphocytes # 1.1 Monocytes # 0.5 Eosinophils # 0.0 Basophils # 0.0 Nucleated Red Blood Cells # 0.0 Sodium Level 132 L Potassium Level 3.6 Chloride Level 94 L Carbon Dioxide Level 25 Anion Gap 17 H Blood Urea Nitrogen 24 H Creatinine 2.97 H Glucose Level 156 Calcium Level 7.5 L Phosphorus Level 3.5 Magnesium Level 1.8 Medications Medications Current Medications Ferrous Sulfate (Ferrous Sulfate (Ec)) 325 mg DAILY PO Last administered on 09:24; Admin Dose 325 MG; Start 09/27/16 at 09:00 Hydralazine HCl (Apresoline) 10 mg BID PO Last administered on 10/07/16 21:46 ; Admin Dose 10 MG; Start 09/27/16 at 09:00 Metoprolol Succinate (Toprol Xl) 25 mg DAILY PO Last administered on 10/08/16 09:20; Admin Dose 25 MG; Start 09/27/16 at 09:00 Multivit/Ca Carb/ B Cmplx/FA/Prenat (Billie-Roge) 1 tab DAILY PO Last administered on 10/09/16 09:25; Admin Dose 1 TAB; Start 09/27/16 at 09:00 Polyethylene Glycol (Miralax) 17 gm DAILY PO Last administered on 10/09/16 09: 26; Admin Dose 17 GM; Start 09/27/16 at 09:00 Pantoprazole (Protonix Tab) 40 mg DAILY@06 PO Last administered on 10/09/16 06 :10; Admin Dose 40 MG; Start 09/27/16 at 06:00 Zolpidem Tartrate (Ambien) 5 mg HS PRN PO INSOMNIA; Start 09/27/16 at 01:00 Acetaminophen (Tylenol Tab) 650 mg Q6H PRN PO PAIN AND OR ELEVATED TEMP; Start 09/27/16 at 01:00 Ondansetron HCl (Zofran Inj) 4 mg Q6H PRN IV NAUSEA AND/OR VOMITING Last administered on 10/06/16 08:59; Admin Dose 4 MG; Start 09/27/16 at 01:00 IV Flush (NS 10 ml) 3 ml Q8 IV Last administered on 10/10/16 14:51; Admin Dose 3 ML; Start 09/27/16 at 06:00 Diagnostic Test (Pha) (Accu-Chek) 1 ea 02 XX Last administered on 10/02/16 02: 12; Admin Dose 1 EA; Start 09/28/16 at 02:00 Miscellaneous Information 1 ea NOTE XX ; Start 09/27/16 at 07:30 Glucose (Glutose) 15 gm Q15M PRN PO DECREASED GLUCOSE; Start 09/27/16 at 07:30 Glucose (Glutose) 22.5 gm Q15M PRN PO DECREASED GLUCOSE; Start 09/27/16 at 07: 30 Dextrose (D50w Syringe) 25 ml Q15M PRN IV DECREASED GLUCOSE; Start 09/27/16 at 07:30 Dextrose (D50w Syringe) 50 ml Q15M PRN IV DECREASED GLUCOSE; Start 09/27/16 at 07:30 Glucagon (Glucagen) 1 mg Q15M PRN IM DECREASED GLUCOSE; Start 09/27/16 at 07:30 Glucose (Glutose) 15 gm Q15M PRN BUCCAL DECREASED GLUCOSE; Start 09/27/16 at 07 :30 Acetaminophen/ Hydrocodone Bitart ([place] (10/325)) 1.5 tab Q8H PO Last administered on 10/10/16 17:55; Admin Dose 1.5 TAB; Start 09/27/16 at 15:30 Clonidine (Catapres) 0.1 mg Q6H PRN PO SBP>170; Start 09/27/16 at 12:00 Mupirocin (Bactroban) 1 applic BID TOP Last administered on 10/10/16 09:00; Admin Dose 1 APPLIC; Start 09/28/16 at 21:00 Atorvastatin Calcium (Lipitor) 40 mg DAILY@21 PO Last administered on 21:20; Admin Dose 40 MG; Start 09/29/16 at 21:00 Levofloxacin (Levaquin) 250 mg Q48H PO Last administered on 10/10/16 17:55; Admin Dose 250 MG; Start 09/30/16 at 15:00 Aspirin (Aspirin) 81 mg DAILY PO Last administered on 10/09/16 09:26; Admin Dose 81 MG; Start 10/05/16 at 09:00 Clopidogrel Bisulfate 75 mg 75 mg DAILY PO Last administered on 10/08/16 09:20 ; Admin Dose 75 MG; Start 10/05/16 at 09:00 Vancomycin HCl (Vancocin) 250 ml @ 125 mls/hr Q96H IVPB Last administered on 17:48; Admin Dose 125 MLS/HR; Start 10/05/16 at 18:00 Morphine Sulfate (morphine) 2 mg Q2H PRN IV PAIN Last administered on 10/10/16 16:33; Admin Dose 2 MG; Start 10/09/16 at 14:30 QUINN SINGH NP Oct 10, 2016 21:04
--- NOTE | 2016-10-10 21:06 | CONS ---
Date/Time of Note Date/Time of Note DATE: 10/10/16 TIME: 21:06 Assessment/Plan Assessment/Plan Chief Complaint/Hosp Course Anemia complex multifactorial cont to monitor blood count cLosely observe for bleeding and hemolysis transfuse as needed THROMBOCYTOPENIA INTERMITTENT FLUCTUATING MONITOR CLOSELY SL WORSE POSTOP NO NEEDS IN TRANSFUSION Cardiomyopathy with low EF HTN HL cad Pad s/p peripheral bypass Atherectomy left anterior tibial artery Atherectomy left popliteal artery Atherectomy left superficial femoral artery Angioplasty left anterior tibial artery to by 200 mm balloon and 3 x 200 mm balloon Angioplasty left popliteal artery and superficial femoral artery 6 x 200 mm balloon Left lower extremity third order to angiogram Interpositions version of the atherectomy and angioplasty ESRD on HD Non-healing LE wound s/p R ext illiac sttenting and now s/p COURT BAILIFF to graft now patent PPM Hyponatremia Hypothyroid Problems: Consultation Date/Type/Reason Admit Date/Time Sep 26, 2016 at 16:53 Type of Consultation: HEMEON Referring Provider: BRANDI ERICKSON DO 24 HR Interval Summary Free Text/Dictation ALL NOTED D/W DAUGHTER Exam/Review of Systems Vital Signs Vitals Vital Signs Date Time Temp Pulse Resp B/P Pulse Ox O2 Delivery O2 Flow Rate FiO2 10/10/16 20:41 98.1 85 20 97/52 98 10/10/16 17:02 Nasal Cannula 2.0 Intake and Output 10/09/16 10/09/16 10/10/16 15:00 23:00 07:00 Intake Total 400 ml 600 ml 400 ml Output Total 2400 ml Balance -2000 ml 600 ml 400 ml Exam General: WN/WD/NAD, AOx 3 HEENT: Unicetric/atraumatic/EOMI (follow commands) NECK: JVD elevated, no thyromegaly Lymph: no lymphadenopathy HEART: regular with no S3, II/ systolic murmur at apex LUNGS: Coarse sounds ABD: soft, NT, ND, +BS : Intact Neuro: non focal SKIN: chronic changes EXT: trace edema, PAD, erythema - + Pain Results Result Diagram: 10/10/1670410/10/16704 Results 24 hrs Laboratory Tests Test 10/09/16 21:11 10/10/16 07:05 10/10/16 08:32 10/10/16 17:47 Bedside Glucose 195 283 H 135 White Blood Count 6.0 # Red Blood Count 3.39 L Hemoglobin 9.8 L Hematocrit 31.0 L Mean Corpuscular Volume 91.4 Mean Corpuscular Hemoglobin 28.9 L Mean Corpuscular Hemoglobin Concent 31.6 L Red Cell Distribution Width 19.6 H Platelet Count 104 L Mean Platelet Volume 10.3 Neutrophils % 71.1 Lymphocytes % 19.0 Monocytes % 8.4 Eosinophils % 0.7 Basophils % 0.3 Nucleated Red Blood Cells % 0.3 H Neutrophils # 4.2 Lymphocytes # 1.1 Monocytes # 0.5 Eosinophils # 0.0 Basophils # 0.0 Nucleated Red Blood Cells # 0.0 Sodium Level 132 L Potassium Level 3.6 Chloride Level 94 L Carbon Dioxide Level 25 Anion Gap 17 H Blood Urea Nitrogen 24 H Creatinine 2.97 H Glucose Level 156 Calcium Level 7.5 L Phosphorus Level 3.5 Magnesium Level 1.8 Test 10/10/16 21:01 Bedside Glucose 133 Medications Medications Current Medications Ferrous Sulfate (Ferrous Sulfate (Ec)) 325 mg DAILY PO Last administered on 09:24; Admin Dose 325 MG; Start 09/27/16 at 09:00 Hydralazine HCl (Apresoline) 10 mg BID PO Last administered on 10/07/16 21:46 ; Admin Dose 10 MG; Start 09/27/16 at 09:00 Metoprolol Succinate (Toprol Xl) 25 mg DAILY PO Last administered on 10/08/16 09:20; Admin Dose 25 MG; Start 09/27/16 at 09:00 Multivit/Ca Carb/ B Cmplx/FA/Prenat (Billie-Roge) 1 tab DAILY PO Last administered on 10/09/16 09:25; Admin Dose 1 TAB; Start 09/27/16 at 09:00 Polyethylene Glycol (Miralax) 17 gm DAILY PO Last administered on 10/09/16 09: 26; Admin Dose 17 GM; Start 09/27/16 at 09:00 Pantoprazole (Protonix Tab) 40 mg DAILY@06 PO Last administered on 10/09/16 06 :10; Admin Dose 40 MG; Start 09/27/16 at 06:00 Zolpidem Tartrate (Ambien) 5 mg HS PRN PO INSOMNIA; Start 09/27/16 at 01:00 Acetaminophen (Tylenol Tab) 650 mg Q6H PRN PO PAIN AND OR ELEVATED TEMP; Start 09/27/16 at 01:00 Ondansetron HCl (Zofran Inj) 4 mg Q6H PRN IV NAUSEA AND/OR VOMITING Last administered on 10/06/16 08:59; Admin Dose 4 MG; Start 09/27/16 at 01:00 IV Flush (NS 10 ml) 3 ml Q8 IV Last administered on 10/10/16 21:02; Admin Dose 3 ML; Start 09/27/16 at 06:00 Diagnostic Test (Pha) (Accu-Chek) 1 ea 02 XX Last administered on 10/02/16 02: 12; Admin Dose 1 EA; Start 09/28/16 at 02:00 Miscellaneous Information 1 ea NOTE XX ; Start 09/27/16 at 07:30 Glucose (Glutose) 15 gm Q15M PRN PO DECREASED GLUCOSE; Start 09/27/16 at 07:30 Glucose (Glutose) 22.5 gm Q15M PRN PO DECREASED GLUCOSE; Start 09/27/16 at 07: 30 Dextrose (D50w Syringe) 25 ml Q15M PRN IV DECREASED GLUCOSE; Start 09/27/16 at 07:30 Dextrose (D50w Syringe) 50 ml Q15M PRN IV DECREASED GLUCOSE; Start 09/27/16 at 07:30 Glucagon (Glucagen) 1 mg Q15M PRN IM DECREASED GLUCOSE; Start 09/27/16 at 07:30 Glucose (Glutose) 15 gm Q15M PRN BUCCAL DECREASED GLUCOSE; Start 09/27/16 at 07 :30 Acetaminophen/ Hydrocodone Bitart ([place] (10/325)) 1.5 tab Q8H PO Last administered on 10/10/16 17:55; Admin Dose 1.5 TAB; Start 09/27/16 at 15:30 Clonidine (Catapres) 0.1 mg Q6H PRN PO SBP>170; Start 09/27/16 at 12:00 Mupirocin (Bactroban) 1 applic BID TOP Last administered on 10/10/16 20:59; Admin Dose 1 APPLIC; Start 09/28/16 at 21:00 Atorvastatin Calcium (Lipitor) 40 mg DAILY@21 PO Last administered on 10/10/16 20:58; Admin Dose 40 MG; Start 09/29/16 at 21:00 Levofloxacin (Levaquin) 250 mg Q48H PO Last administered on 10/10/16 17:55; Admin Dose 250 MG; Start 09/30/16 at 15:00 Aspirin (Aspirin) 81 mg DAILY PO Last administered on 10/09/16 09:26; Admin Dose 81 MG; Start 10/05/16 at 09:00 Clopidogrel Bisulfate 75 mg 75 mg DAILY PO Last administered on 10/08/16 09:20 ; Admin Dose 75 MG; Start 10/05/16 at 09:00 Vancomycin HCl (Vancocin) 250 ml @ 125 mls/hr Q96H IVPB Last administered on 17:48; Admin Dose 125 MLS/HR; Start 10/05/16 at 18:00 Morphine Sulfate (morphine) 2 mg Q2H PRN IV PAIN Last administered on 10/10/16 16:33; Admin Dose 2 MG; Start 10/09/16 at 14:30 FABY HORN MD Oct 10, 2016 21:06
[2016-10-11] VITALS (31 sets, daily range): BP systolic 71–113; BP diastolic 34–60; PULSE 70–102; RESP 14–20
[2016-10-11] MEDS: HYDROCODONE/APAP (10/325) TAB PO SCH ×4 (00:01→22:17)
[2016-10-11] MEDS: ACCU-CHEK XX SCH (01:32)
[2016-10-11] MEDS: PANTOPRAZOLE (EC) 40 MG TAB PO SCH (06:45)
[2016-10-11] MEDS: LEVOTHYROXINE 88 MCG TAB PO SCH (06:46)
[2016-10-11] MEDS: INSULIN ASPART [NOVOLOG] 3 ML PEN SC SCH ×4 (07:55→21:00)
[2016-10-11] MEDS: SEVELAMER 800 MG TAB PO SCH ×3 (08:50→17:55)
[2016-10-11] MEDS: METOPROLOL (XL) 25 MG TAB PO SCH ×2 (09:00→09:20)
[2016-10-11] MEDS: MULTIVIT/CA CARB/B CMPLX/FA TAB PO SCH (09:19)
[2016-10-11] MEDS: CLOPIDOGREL 75 MG TAB PO SCH (09:19)
[2016-10-11] MEDS: FERROUS SULFATE (EC) 325 MG TAB PO SCH (09:19)
[2016-10-11] MEDS: POLYETHYLENE GLYCOL 17 GM PACKET PO SCH (09:19)
[2016-10-11] MEDS: ASPIRIN 81 MG TAB PO SCH (09:20)
[2016-10-11] MEDS: MUPIROCIN 2% 22 GM OINT TOP SCH ×2 (09:21→23:46)
--- NOTE | 2016-10-11 09:28 | CONS ---
Date/Time of Note Date/Time of Note DATE: 10/11/16 TIME: 09:27 Assessment/Plan Assessment/Plan Chief Complaint/Hosp Course Anemia complex multifactorial cont to monitor blood count cLosely observe for bleeding and hemolysis transfuse as needed THROMBOCYTOPENIA INTERMITTENT FLUCTUATING MONITOR CLOSELY SL WORSE POSTOP NO NEEDS IN TRANSFUSION Cardiomyopathy with low EF HTN HL cad Pad s/p peripheral bypass Atherectomy left anterior tibial artery Atherectomy left popliteal artery Atherectomy left superficial femoral artery Angioplasty left anterior tibial artery to by 200 mm balloon and 3 x 200 mm balloon Angioplasty left popliteal artery and superficial femoral artery 6 x 200 mm balloon Left lower extremity third order to angiogram Interpositions version of the atherectomy and angioplasty ESRD on HD Non-healing LE wound s/p R ext illiac sttenting and 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 now patent PPM Hyponatremia Hypothyroid Problems: Consultation Date/Type/Reason Admit Date/Time Sep 26, 2016 at 16:53 Type of Consultation: HEMEON Referring Provider: BRANDI ERICKSON DO 24 HR Interval Summary Free Text/Dictation ALL NOTED POSTOP Exam/Review of Systems Vital Signs Vitals Vital Signs Date Time Temp Pulse Resp B/P Pulse Ox O2 Delivery O2 Flow Rate FiO2 10/11/16 08:25 89 10/11/16 07:52 97.8 20 102/50 97 10/10/16 17:02 Nasal Cannula 2.0 Intake and Output 10/10/16 10/10/16 10/11/16 15:00 23:00 07:00 Intake Total 300 ml Balance 300 ml Exam General: WN/WD/NAD, AOx 3 HEENT: Unicetric/atraumatic/EOMI (follow commands) NECK: JVD elevated, no thyromegaly Lymph: no lymphadenopathy HEART: regular with no S3, II/ systolic murmur at apex LUNGS: Coarse sounds ABD: soft, NT, ND, +BS : Intact Neuro: non focal SKIN: chronic changes EXT: trace edema, PAD, erythema - + Pain, POST OP Results Result Diagram: 10/10/16 0705 10/10/16 0705 Results 24 hrs Laboratory Tests Test 10/10/16 17:47 10/10/16 21:01 10/11/16 08:33 Bedside Glucose 135 133 86 Medications Medications Current Medications Ferrous Sulfate (Ferrous Sulfate (Ec)) 325 mg DAILY PO Last administered on 10/11t 09:19; Admin Dose 325 MG; Start 09/27/16 at 09:00 Hydralazine HCl (Apresoline) 10 mg BID PO Last administered on 10/11/16 09:20; Admin Dose 10 MG; Start 09/27/16 at 09:00 Metoprolol Succinate (Toprol Xl) 25 mg DAILY PO Last administered on 10/11/16 09:20; Admin Dose 25 MG; Start 09/27/16 at 09:00 Multivit/Ca Carb/ B Cmplx/FA/Prenat (Billie-Roge) 1 tab DAILY PO Last administered on 10/11/16 09:19; Admin Dose 1 TAB; Start 09/27/16 at 09:00 Polyethylene Glycol (Miralax) 17 gm DAILY PO Last administered on 10/11/16 09: 19; Admin Dose 17 GM; Start 09/27/16 at 09:00 Pantoprazole (Protonix Tab) 40 mg DAILY@06 PO Last administered on 10/11/16 06: 45; Admin Dose 40 MG; Start 09/27/16 at 06:00 Zolpidem Tartrate (Ambien) 5 mg HS PRN PO INSOMNIA; Start 09/27/16 at 01:00 Acetaminophen (Tylenol Tab) 650 mg Q6H PRN PO PAIN AND OR ELEVATED TEMP; Start 09/27/16 at 01:00 Ondansetron HCl (Zofran Inj) 4 mg Q6H PRN IV NAUSEA AND/OR VOMITING Last administered on 10/06/16 08:59; Admin Dose 4 MG; Start 09/27/16 at 01:00 IV Flush (NS 10 ml) 3 ml Q8 IV Last administered on 10/11/16 06:46; Admin Dose 3 ML; Start 09/27/16 at 06:00 Diagnostic Test (Pha) (Accu-Chek) 1 ea 02 XX Last administered on 10/02/16 02: 12; Admin Dose 1 EA; Start 09/28/16 at 02:00 Miscellaneous Information 1 ea NOTE XX ; Start 09/27/16 at 07:30 Glucose (Glutose) 15 gm Q15M PRN PO DECREASED GLUCOSE; Start 09/27/16 at 07:30 Glucose (Glutose) 22.5 gm Q15M PRN PO DECREASED GLUCOSE; Start 09/27/16 at 07: 30 Dextrose (D50w Syringe) 25 ml Q15M PRN IV DECREASED GLUCOSE; Start 09/27/16 at 07:30 Dextrose (D50w Syringe) 50 ml Q15M PRN IV DECREASED GLUCOSE; Start 09/27/16 at 07:30 Glucagon (Glucagen) 1 mg Q15M PRN IM DECREASED GLUCOSE; Start 09/27/16 at 07:30 Glucose (Glutose) 15 gm Q15M PRN BUCCAL DECREASED GLUCOSE; Start 09/27/16 at 07 :30 Acetaminophen/ Hydrocodone Bitart ([place] (10/325)) 1.5 tab Q8H PO Last administered on 10/11/16 06:46; Admin Dose 1.5 TAB; Start 09/27/16 at 15:30 Clonidine (Catapres) 0.1 mg Q6H PRN PO SBP>170; Start 09/27/16 at 12:00 Mupirocin (Bactroban) 1 applic BID TOP Last administered on 10/11/16 09:21; Admin Dose 1 APPLIC; Start 09/28/16 at 21:00 Atorvastatin Calcium (Lipitor) 40 mg DAILY@21 PO Last administered on 10/10/16 20:58; Admin Dose 40 MG; Start 09/29/16 at 21:00 Levofloxacin (Levaquin) 250 mg Q48H PO Last administered on 10/10/16 17:55; Admin Dose 250 MG; Start 09/30/16 at 15:00 Aspirin (Aspirin) 81 mg DAILY PO Last administered on 10/11/16 09:20; Admin Dose 81 MG; Start 10/05/16 at 09:00 Clopidogrel Bisulfate 75 mg 75 mg DAILY PO Last administered on 10/11/16 09:19 ; Admin Dose 75 MG; Start 10/05/16 at 09:00 Vancomycin HCl (Vancocin) 250 ml @ 125 mls/hr Q96H IVPB Last administered on 17:48; Admin Dose 125 MLS/HR; Start 10/05/16 at 18:00 Morphine Sulfate (morphine) 2 mg Q2H PRN IV PAIN Last administered on 10/10/16 16:33; Admin Dose 2 MG; Start 10/09/16 at 14:30 FABY HORN MD Oct 11, 2016 09:28
--- NOTE | 2016-10-11 10:06 | PN ---
DATE: 10/11/2016 SUBJECTIVE DATA: Patient is stable. No acute events overnight. No fevers, chills, nausea or vomiting. No shortness of breath. OBJECTIVE DATA: VITAL SIGNS: Blood pressure is 03/13/1959, respirations 20, pulse 77, temperature 97.8. HEENT: Head is normocephalic. NECK: Supple. HEART: Regular rate. LUNGS: Diminished breath sounds at the base. ABDOMEN: Soft, nontender to palpation. No guarding. EXTREMITIES: Negative for clubbing, cyanosis. No edema noted. Gangrene on the right lower heel. DERMATOLOGIC: Clean. No rashes. MUSCULOSKELETAL: No joint effusion. NEUROLOGIC: Unchanged exam. MEDICATION: Reviewed. LABORATORY AND DIAGNOSTIC DATA: Laboratory data has been reviewed. ASSESSMENT AND PLAN: 1. Right lower extremity gangrene. The patient is status post angiogram with stenting of the iliac artery. Currently stable. Continue wound care, pain control. 2. Peripheral vascular disease. The patient is status post angiogram of the left lower extremity. At this point, we will continue to monitor. Follow up with vascular surgery for further recommendations. 3. End-stage renal disease. Plan for dialysis today. 4. Hyponatremia. Continue dialysis 140 sodium bath. Limit free water intake. 5. Coronary artery disease. Continue medical management. 6. Anemia. Monitor H and H levels. Continue Epogen with dialysis. 7. Diabetes. Continue Accu-Chek and sliding scale. 8. Hypertension. Continue current blood pressure regimen. 9. Hypothyroidism. Continue Synthroid. 10. Mineral bone disorder. To monitor calcium and phosphorus levels. 11. Gastrointestinal and deep venous thrombosis prophylaxis. Dictated By: Ihsan Johns DO /[email or web address] /Document#: [id number]
[2016-10-11] MEDS: ACETAMINOPHEN 325 MG TAB PO PRN (12:45)
--- NOTE | 2016-10-11 13:11 | CONS ---
Date/Time of Note Date/Time of Note DATE: 10/11/16 TIME: 13:08 Assessment/Plan Assessment/Plan Chief Complaint/Hosp Course IMP: 1.Cardiomyopathy with low EF 2.HTN-well controlled 3.HL 4.cad 5. Pad s/p peripheral bypass 6. ESRD on HD 7. Non-healing LE wound s/p R ext illiac stenting and EMAIL MARKETING PROCESSOR to graft and now athrectomy and EMAIL MARKETING PROCESSOR to L SFA/popliteal/AT 8. PPM 9. Anemia 10. Hyponatremia 11.Hypothyroid Recc: -Tele -serial ecg's -Continue BB/hydralazine -Continue asa/plavix -Continue statin -HD for volume removal -Continue abx's -Local wound care -Pain control -Possible further debridement Problems: Consultation Date/Type/Reason Admit Date/Time Sep 26, 2016 at 16:53 Initial Consult Date 09/27/2016 Type of Consultation: cardiology Reason for Consultation cardiomyopathy Referring Provider: BRANDI ERICKSON DO Exam/Review of Systems Vital Signs Vitals Vital Signs Date Time Temp Pulse Resp B/P Pulse Ox O2 Delivery O2 Flow Rate FiO2 10/11/16 12:02 85 10/11/16 11:24 97.8 20 100/49 97 10/10/16 17:02 Nasal Cannula 2.0 Intake and Output 10/10/16 10/10/16 10/11/16 15:00 23:00 07:00 Intake Total 300 ml Balance 300 ml Exam Review of Systems: CONSTITUTIONAL: No fevers, chills. PULMONARY: No sob CARDIOVASCULAR: No chest pain/palpitations GASTROINTESTINAL: No nausea/vomiting. GENITOURINARY: No hematuria/dysuria. MUSCULOSKELETAL: No myagias/arthalgias. PSYCHIATRIC: The patient denies depression. NEUROLOGIC: No weakness Constitutional: alert Psych: no complaints Head: normocephalic ENMT: mucosa pink and moist Neck: jvd (9 cm water), supple Respiratory: diminished breath sounds (at bases/B) Cardiovascular: regular rate and rhythm Gastrointestinal: non-tender, soft Musculoskeletal: muscle weakness (generalized) Extremities: other (Feet covered by dressing bilateral with gangrenous changes of RLE) Results Result Diagram: 10/10/16 0705 10/10/16 0705 Results 24 hrs Laboratory Tests Test 10/10/16 17:47 10/10/16 21:01 10/11/16 08:33 10/11/16 11:49 Bedside Glucose 135 133 86 97 Medications Medications Current Medications Ferrous Sulfate (Ferrous Sulfate (Ec)) 325 mg DAILY PO Last administered on 10/11 09:19; Admin Dose 325 MG; Start 09/27/16 at 09:00 Hydralazine HCl (Apresoline) 10 mg BID PO Last administered on 10/11/16 09:20; Admin Dose 10 MG; Start 09/27/16 at 09:00 Metoprolol Succinate (Toprol Xl) 25 mg DAILY PO Last administered on 10/11/16 09:20; Admin Dose 25 MG; Start 09/27/16 at 09:00 Multivit/Ca Carb/ B Cmplx/FA/Prenat (Billie-Roge) 1 tab DAILY PO Last administered on 10/11/16 09:19; Admin Dose 1 TAB; Start 09/27/16 at 09:00 Polyethylene Glycol (Miralax) 17 gm DAILY PO Last administered on 10/11/16 09: 19; Admin Dose 17 GM; Start 09/27/16 at 09:00 Pantoprazole (Protonix Tab) 40 mg DAILY@06 PO Last administered on 10/11/16 06: 45; Admin Dose 40 MG; Start 09/27/16 at 06:00 Zolpidem Tartrate (Ambien) 5 mg HS PRN PO INSOMNIA; Start 09/27/16 at 01:00 Acetaminophen (Tylenol Tab) 650 mg Q6H PRN PO PAIN AND OR ELEVATED TEMP Last administered on 10/11/16 12:45; Admin Dose 650 MG; Start 09/27/16 at 01:00 Ondansetron HCl (Zofran Inj) 4 mg Q6H PRN IV NAUSEA AND/OR VOMITING Last administered on 10/06/16 08:59; Admin Dose 4 MG; Start 09/27/16 at 01:00 IV Flush (NS 10 ml) 3 ml Q8 IV Last administered on 10/11/16 06:46; Admin Dose 3 ML; Start 09/27/16 at 06:00 Diagnostic Test (Pha) (Accu-Chek) 1 ea 02 XX Last administered on 10/02/16 02: 12; Admin Dose 1 EA; Start 09/28/16 at 02:00 Miscellaneous Information 1 ea NOTE XX ; Start 09/27/16 at 07:30 Glucose (Glutose) 15 gm Q15M PRN PO DECREASED GLUCOSE; Start 09/27/16 at 07:30 Glucose (Glutose) 22.5 gm Q15M PRN PO DECREASED GLUCOSE; Start 09/27/16 at 07: 30 Dextrose (D50w Syringe) 25 ml Q15M PRN IV DECREASED GLUCOSE; Start 09/27/16 at 07:30 Dextrose (D50w Syringe) 50 ml Q15M PRN IV DECREASED GLUCOSE; Start 09/27/16 at 07:30 Glucagon (Glucagen) 1 mg Q15M PRN IM DECREASED GLUCOSE; Start 09/27/16 at 07:30 Glucose (Glutose) 15 gm Q15M PRN BUCCAL DECREASED GLUCOSE; Start 09/27/16 at 07 :30 Acetaminophen/ Hydrocodone Bitart ([place] (10/325)) 1.5 tab Q8H PO Last administered on 10/11/16 06:46; Admin Dose 1.5 TAB; Start 09/27/16 at 15:30 Clonidine (Catapres) 0.1 mg Q6H PRN PO SBP>170; Start 09/27/16 at 12:00 Mupirocin (Bactroban) 1 applic BID TOP Last administered on 10/11/16 09:21; Admin Dose 1 APPLIC; Start 09/28/16 at 21:00 Atorvastatin Calcium (Lipitor) 40 mg DAILY@21 PO Last administered on 10/10/16 20:58; Admin Dose 40 MG; Start 09/29/16 at 21:00 Levofloxacin (Levaquin) 250 mg Q48H PO Last administered on 10/10/16 17:55; Admin Dose 250 MG; Start 09/30/16 at 15:00 Aspirin (Aspirin) 81 mg DAILY PO Last administered on 10/11/16 09:20; Admin Dose 81 MG; Start 10/05/16 at 09:00 Clopidogrel Bisulfate 75 mg 75 mg DAILY PO Last administered on 10/11/16 09:19 ; Admin Dose 75 MG; Start 10/05/16 at 09:00 Vancomycin HCl (Vancocin) 250 ml @ 125 mls/hr Q96H IVPB Last administered on 17:48; Admin Dose 125 MLS/HR; Start 10/05/16 at 18:00 Morphine Sulfate (morphine) 2 mg Q2H PRN IV PAIN Last administered on 10/10/16t 16:33; Admin Dose 2 MG; Start 10/09/16 at 14:30 YI RODRIGUEZ Oct 11, 2016 13:11
[2016-10-11] MEDS: ONDANSETRON 4 MG INJ IV PRN (14:36)
[2016-10-11] MEDS ORDERED: ALBUMIN HUMAN 25% 100 ML IV ONE (15:00)
[2016-10-11] MEDS: ALBUMIN HUMAN 25% 100 ML IV SCH ×2 (17:20→19:59)
--- NOTE | 2016-10-11 18:51 | PN ---
Date/Time of Note Date/Time of Note DATE: 10/11/16 TIME: 18:50 Assessment/Plan Lines/Catheters IV Catheter Type (from Nrsg): Saline Lock Tolbert in Place (from Nrsg): No Assessment/Plan Chief Complaint/Hosp Course Status post angiogram and iliac artery angioplasty and stent placement SP angioplasty Right saphenous vein graft Patient with strong Doppler signals over the dorsalis pedis artery SP Angioplasty LLE We will continue Plavix Discussed with Dr. Benson His cussed with the daughter Problems: Subjective 24 Hr Interval Summary Constitutional: improved Pain Control: mild Exam/Review of Systems Vital Signs Vitals Vital Signs Date Time Temp Pulse Resp B/P Pulse Ox O2 Delivery O2 Flow Rate FiO2 10/11/16 16:02 96 10/11/16 15:23 98.2 20 89/43 96 10/10/16 17:02 Nasal Cannula 2.0 Intake and Output 10/10/16 10/10/16 10/11/16 15:00 23:00 07:00 Intake Total 300 ml Balance 300 ml Exam ENMT: mucosa pink and moist, nl external ears & nose, nl lips & teeth, nl nasal mucosa & septum Neck: non-tender, supple Respiratory: clear to auscultation, normal air movement Cardiovascular: nl pulses, regular rate and rhythm Results Result Diagram: 10/10/1670410/10/16704 BALDOMERO PALOMO MD Oct 11, 2016 18:51
--- NOTE | 2016-10-11 19:22 | CONS ---
Date/Time of Note Date/Time of Note DATE: 10/11/16 TIME: 19:16 Assessment/Plan Assessment/Plan Chief Complaint/Hosp Course ID PROGRESS NOTE TOTAL ABX DAY # => Levaquin +Vanco IV post HD 24H INTERVAL SUMMARY POD #2=> Procedure Date: Oct 10, 2016 => LLEXT arterectomy/angioplasty * Stable resting no fevers, WBC normal * Daughter questioning me about when foot will be debrided, she is concerned this has not been done to date. I explained to daughter that patient just had revascularization; not recommended to have debridement until blood flow established to foot; encouraged her to be patient -- discussed the fact that ABX on board, hopefully will be more effective once return of arterial flow established. Encouraged her that podiatry and vascular have a plan is place and she can trust that plan, advised her the patient needs to recover from yesterdays procedure and be re-evaluated and observed post procedure -- further interventions will likely be staged. PHYSICAL EXAMINATION: GENERAL: 75 yo F HEENT: Unremarkable NECK: Supple, trachea midline. CHEST: Rise symmetrical without dyspnea HEART: RRR ABDOMEN: Soft, NT EXTREMITIES: Warm, gangrenous changes toes, DSG C/.D/I ID ASSESSMENT: 75 yo F w/ 1. s/p Sepsis with staph bacteremia==> Staph "CoNS" 1/2 bottles, possibly a contaminated sample 2. 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 Severe peripheral arterial disease, * s/p 10/10/16 LLEXT Arterectomy + Angioplasty * s/p 09/29/16 angiogram and iliac artery angioplasty and stent placement * s/p 10/04/16 PRINTER TECHNICIAN to graft now patent -> started on Plavix 4. End-stage renal disease, hemodialysis dependent * Left upper extremity AV fistula 5. DM w/complications of DM polyneuropathies: Nephro, Peripheral, Autonomic 6. CAD, w/Hx cardiomyopathy, hx of CABG, hx of non-ST elevation myocardial infarction type 2 7. Anemia of chronic disease, Epogen (+)MRSA Nares-> Bactroban CURRENT ABX: Levaquin +Vanco IV post HD ID RECOMMENDATIONS=> Continue current plan: 1. Stable post angio procedure 10/10/16 2. When cleared for DC => Patient may DC on current ABX Vanco IV 1GM Q96H to be given during HD w/continued dose per pharmacy; and Levaquin 250mg po Q48H x 28 days * Unknown date of future intervention, best to send her out with adequate ABX supply . . Problems: Consultation Date/Type/Reason Admit Date/Time Sep 26, 2016 at 16:53 Type of Consultation: ID Referring Provider: BRANDI ERICKSON DO Exam/Review of Systems Vital Signs Vitals Vital Signs Date Time Temp Pulse Resp B/P Pulse Ox O2 Delivery O2 Flow Rate FiO2 10/11/16 16:02 96 10/11/16 15:23 98.2 20 89/43 96 10/10/16 17:02 Nasal Cannula 2.0 Intake and Output 10/10/16 10/10/16 10/11/16 15:00 23:00 07:00 Intake Total 300 ml Balance 300 ml Results Result Diagram: 10/10/16 0705 10/10/16 0705 Results 24 hrs Laboratory Tests Test 10/10/16 21:01 10/11/16 08:33 10/11/16 11:49 10/11/16 17:12 Bedside Glucose 133 86 97 202 Medications Medications Current Medications Ferrous Sulfate (Ferrous Sulfate (Ec)) 325 mg DAILY PO Last administered on 10/11 09:19; Admin Dose 325 MG; Start 09/27/16 at 09:00 Hydralazine HCl (Apresoline) 10 mg BID PO Last administered on 10/11/16 09:20; Admin Dose 10 MG; Start 09/27/16 at 09:00 Metoprolol Succinate (Toprol Xl) 25 mg DAILY PO Last administered on 10/11/16 09:20; Admin Dose 25 MG; Start 09/27/16 at 09:00 Multivit/Ca Carb/ B Cmplx/FA/Prenat (Billie-Roge) 1 tab DAILY PO Last administered on 10/11/16 09:19; Admin Dose 1 TAB; Start 09/27/16 at 09:00 Polyethylene Glycol (Miralax) 17 gm DAILY PO Last administered on 10/11/16 09: 19; Admin Dose 17 GM; Start 09/27/16 at 09:00 Pantoprazole (Protonix Tab) 40 mg DAILY@06 PO Last administered on 10/11/16 06: 45; Admin Dose 40 MG; Start 09/27/16 at 06:00 Zolpidem Tartrate (Ambien) 5 mg HS PRN PO INSOMNIA; Start 09/27/16 at 01:00 Acetaminophen (Tylenol Tab) 650 mg Q6H PRN PO PAIN AND OR ELEVATED TEMP Last administered on 10/11/16 12:45; Admin Dose 650 MG; Start 09/27/16 at 01:00 Ondansetron HCl (Zofran Inj) 4 mg Q6H PRN IV NAUSEA AND/OR VOMITING Last administered on 10/11/16 14:36; Admin Dose 4 MG; Start 09/27/16 at 01:00 IV Flush (NS 10 ml) 3 ml Q8 IV Last administered on 10/11/16 14:29; Admin Dose 3 ML; Start 09/27/16 at 06:00 Diagnostic Test (Pha) (Accu-Chek) 1 ea 02 XX Last administered on 10/02/16 02: 12; Admin Dose 1 EA; Start 09/28/16 at 02:00 Miscellaneous Information 1 ea NOTE XX ; Start 09/27/16 at 07:30 Glucose (Glutose) 15 gm Q15M PRN PO DECREASED GLUCOSE; Start 09/27/16 at 07:30 Glucose (Glutose) 22.5 gm Q15M PRN PO DECREASED GLUCOSE; Start 09/27/16 at 07: 30 Dextrose (D50w Syringe) 25 ml Q15M PRN IV DECREASED GLUCOSE; Start 09/27/16 at 07:30 Dextrose (D50w Syringe) 50 ml Q15M PRN IV DECREASED GLUCOSE; Start 09/27/16 at 07:30 Glucagon (Glucagen) 1 mg Q15M PRN IM DECREASED GLUCOSE; Start 09/27/16 at 07:30 Glucose (Glutose) 15 gm Q15M PRN BUCCAL DECREASED GLUCOSE; Start 09/27/16 at 07 :30 Acetaminophen/ Hydrocodone Bitart ([place] (10/325)) 1.5 tab Q8H PO Last administered on 10/11/16 06:46; Admin Dose 1.5 TAB; Start 09/27/16 at 15:30 Clonidine (Catapres) 0.1 mg Q6H PRN PO SBP>170; Start 09/27/16 at 12:00 Mupirocin (Bactroban) 1 applic BID TOP Last administered on 10/11/16 09:21; Admin Dose 1 APPLIC; Start 09/28/16 at 21:00 Atorvastatin Calcium (Lipitor) 40 mg DAILY@21 PO Last administered on 10/10/16 20:58; Admin Dose 40 MG; Start 09/29/16 at 21:00 Levofloxacin (Levaquin) 250 mg Q48H PO Last administered on 10/10/16 17:55; Admin Dose 250 MG; Start 09/30/16 at 15:00 Aspirin (Aspirin) 81 mg DAILY PO Last administered on 10/11/16 09:20; Admin Dose 81 MG; Start 10/05/16 at 09:00 Clopidogrel Bisulfate 75 mg 75 mg DAILY PO Last administered on 10/11/16 09:19 ; Admin Dose 75 MG; Start 10/05/16 at 09:00 Vancomycin HCl (Vancocin) 250 ml @ 125 mls/hr Q96H IVPB Last administered on 17:48; Admin Dose 125 MLS/HR; Start 10/05/16 at 18:00 Morphine Sulfate 2 mg 2 mg Q2H PRN IV PAIN Last administered on 10/10/16 16:33 ; Admin Dose 2 MG; Start 10/09/16 at 14:30 Albumin Human (Albumin Human 25%) 100 ml @ 100 mls/hr Q1H IV Last administered on 10/11/16 17:20; Admin Dose 100 MLS/HR; Start 10/11/16 at 17:30; Stop 10/11/16 at 19:29 QUINN SINGH NP Oct 11, 2016 19:21
[2016-10-11] MEDS: ATORVASTATIN 40 MG TAB PO SCH (21:00)
[2016-10-11] MEDS ORDERED: NA BICARBONATE 8.4% 50 ML SYG ONE (21:11)
[2016-10-11] MEDS ORDERED: CA CHLORIDE 10% 10 ML SYRINGE ONE (21:22)
[2016-10-11] MEDS ORDERED: CA CHLORIDE 10% 10 ML SYRINGE IV ONE (21:30)
[2016-10-11] MEDS ORDERED: VANCOMYCIN IV PER PHARMACY XX SCH (22:00)
[2016-10-11 22:22] LABS: CK-MB 9.99 ng/ml (0.0-2.4)
[2016-10-11 22:23] LABS: CALCIUM 10.7 mg/dl (8.4-10.2); CREATININE 2.44 mg/dl (0.44-1.00); POTASSIUM 3.5 mmol/L (3.5-5.1)
[2016-10-11] MEDS: NORepinephrine 8MG/250 ML (PMX 250 ML IV SCH (22:30)
[2016-10-11 22:31] LABS: TROPONIN-I 0.142 ng/ml (0.00-0.12)
[2016-10-11 22:40] LABS: AADO2 Arterial 480.3 mmHg (7.0-24.0); Allen Test ACCEPTAB; Arterial Base Excess -14.1 mmol/L (-3.0-3); Arterial COHb 0.2 % (0.0-3.0); Arterial Fraction of Oxyhgb 97.7 % (93.0-99.0); Arterial HCO3 12.8 mmol/L (22.0-26.0); Arterial MetHb 0.4 % (0.0-1.5); Arterial Total Hemglobin 7.1 g/dl (12.0-18.0); MODE VENT - AC
[2016-10-11 22:51] LABS: MAGNESIUM 2.2 mg/dl (1.7-2.5); PHOSPHORUS 6.7 mg/dl (2.5-4.9)
--- NOTE | 2016-10-11 23:15 | RADRPT ---
PROCEDURE: XR Chest. CLINICAL INDICATION: Post intubation. TECHNIQUE: Single frontal chest x-ray. COMPARISON: 09/27/2016 FINDINGS: Tracheal tube tip is at the level aortic knob, 2.8 cm above renee. NG tube tip is in the stomach. The NG tube sign cord is at the distal esophagus. Right internal jugular central line tip is in th e right atrium. Left subclavian biventricular pacemaker is unchanged. The patient is status post s ternotomy.. Heart is enlarged. There is mild pulmonary vascular congestion.. There is a right pleu ral effusion with associated basilar atelectasis. There is mild left basilar atelectasis versus gilson ma.. There is no pneumothorax. The osseous structures are unremarkable. IMPRESSION: 1. Endotracheal tube tip above renee. 2. NG tube tip in stomach. NG tube side port is in the distal esophagus. 3. Cardiomegaly. 4. Mild pulmonary vascular congestion. 5. Right pleural effusion with basilar atelectasis versus edema. 6. Mild left basilar atelectasis. 7. Otherwise no change. RPTAT: HMVK .Jet Carter MD, Date Time Electronically viewed and signed by .Jet Carter MD, on 10/11/2016 23:14 .K/
[2016-10-11] MEDS ORDERED: SODIUM BICARBONATE (IV ADD) 75 MEQ in SOD CHLORIDE 0.45% 925 ML IV SCH (23:30)
[2016-10-11] MEDS: PIPER-TAZO 2.25 GM (PMX) 50 ML IVPB SCH (23:45)
[2016-10-11] MEDS: POTASSIUM CHLORIDE 50 ML IVPB SCH (23:45)
[2016-10-11 23:46] LABS: ABNORMAL IP MESSAGE 1; BASOPHILS % 0.1 % (0.0-2.0); HEMATOCRIT 21.8 % (37.0-47.0); LYMPHOCYTES # 1.5 10^3/ul (0.8-2.9); LYMPHOCYTES % 7.4 % (15.0-51.0); MEAN CORPUSCULAR HEMOGLOBIN 30.6 pg (29.0-33.0); MEAN CORPUSCULAR HGB CONC 30.3 g/dl (32.0-37.0); MEAN CORPUSCULAR VOLUME 100.9 fl (82.0-101.0); MEAN PLATELET VOLUME 10.8 fl (7.4-10.4); MONOCYTE # 1.1 10^3/ul (0.3-0.9); MONOCYTES % 5.4 % (0.0-11.0); NEUTROPHILS % 84.4 % (39.0-77.0); NUCLEATED RED BLOOD CELLS # 0.2 10^3/ul (0.0-0.0); NUCLEATED RED BLOOD CELLS% 0.9 /100WBC (0.0-0.0); PLATELET COUNT 77 10^3/UL (140-415); RED BLOOD COUNT 2.16 10^6/ul (4.20-5.40); WHITE BLOOD COUNT 20.2 10^3/ul (4.8-10.8)
[2016-10-11 23:52] LABS: HEMOGLOBIN 6.6 g/dl (12.0-16.0); POSITIVE DIFF @See below
--- NOTE | 2016-10-11 23:52 | EN ---
Date/Time of Note Date/Time of Note DATE: 10/11/16 TIME: 23:45 ER Progress Note CODE MANAN This is 75-year-old female who is on dialysis for a CODE MANAN was called on the fifth floor. Patient apparently has been running low blood pressure all day. She was put on dialysis machine today but did not receive dialysis because blood pressure dropped it was aborted. She had been getting her second bottle of albumin just prior to my arrival. The nurse says her blood pressure was adequate before the CHERYL HINKLE was called and she is not sure what occurred. On my arrival the patient was getting active CPR and bagged by RT. The patient had an IV in her right upper extremity but it was pulled out or not working and he said they had no access Const: Well-developed, well-nourished Head: Atraumatic, normocephalic Eyes: Normal Conjunctiva,normal sclera, no nystagmus ENT: Normal External Ears, Nose and Mouth, moist mucus membranes. Neck: Full range of motion. No meningismus, no lymphadenopathy. Resp: [Lung sounds clear with bagging Cardio: No spontaneous cardiac activity Abd: [Soft,, non distended. Skin: Ecchymosis to her extremities upper Back: Unable to exam due to CPR Ext: [No cyanosis, or edema, Neur: GCS of 3 Psych: Unable to obtain Patient was quickly intubated by me. Endotracheal Intubation by me: Pre assessment performed. See preceding note for details. Pre-oxygenation performed with 100% oxygen RSI: Performed w/o complication or hypoxic events. Medications as ordered. Blade: [Mac 4] ET Tube: 7.0 cm Depth: 23] cm at the lip Intubation confirmed by colorimetric CO2, equal breath sounds, quiet over the stomach. Patient had no IV access therefore I placed a left tibial intraosseous IV Intraosseous Line Placement by me: Anesthesia: None Location: Anteromedial, Proximal Tibia (1-3 cm below Tibial tuberosity) Device: EZ-IO Needle yellow 3.5 cm Technique: EZ-IO Drill Results: Bone Marrow Aspirated, No extravasation Complications: No evidence of extravasation, compartment syndrome, growth plate damage, or fat embolism Patient was given epinephrine and bicarb following ACLS protocol. The patient was in PEA multiple times in a spontaneous circulation recurred. The patient was then transferred to the ICU where she was given calcium chloride in case her potassium is elevated Central Line Placement by me: Anesthesia: None Location: Left femora successful l, tried 3 in the right femoral but unsuccessful Device: Multiple lumen Technique: Seldinger technique. Secured with suture. Results: Venous return from all ports with easy saline flush. No complications. [XOXOXO]Guide wire retrieved and disposed of. Patient is in critical condition and the primary physicians have been notified. Condition: Critical Disposition: ICU Diagnosis: Cardiac arrest with successful resuscitation JAMMIE RITTER DO Oct 11, 2016 23:52
[2016-10-12] VITALS (94 sets, daily range): BP systolic 69–118; BP diastolic 39–75; PULSE 61–119; RESP 13–30
[2016-10-12] MEDS: POTASSIUM CHLORIDE 50 ML IVPB SCH (00:22)
[2016-10-12] MEDS: ACCU-CHEK XX SCH (01:17)
[2016-10-12] MEDS: VASOPRESSIN 60 UNIT in DEXTROSE 5% 57 ML IV SCH ×3 (03:00→15:45)
[2016-10-12] MEDS: NORepinephrine 8MG/250 ML (PMX 250 ML IV SCH (03:02)
[2016-10-12] MEDS: PHENYLephrine 20MG IN 250 ML 250 ML IV SCH ×2 (03:12→04:12)
[2016-10-12 05:42] LABS: AADO2 Arterial 576.3 mmHg (7.0-24.0); Allen Test ACCEPTAB; Arterial Base Excess -20.2 mmol/L (-3.0-3); Arterial COHb 0.3 % (0.0-3.0); Arterial Fraction of Oxyhgb 94.5 % (93.0-99.0); Arterial HCO3 8.6 mmol/L (22.0-26.0); Arterial MetHb 0.2 % (0.0-1.5); Arterial Total Hemglobin 10.2 g/dl (12.0-18.0); MODE VENT - AC
[2016-10-12] MEDS ORDERED: NA BICARBONATE 8.4% 50 ML SYG ONE (05:56)
[2016-10-12] MEDS ORDERED: NA BICARBONATE 8.4% 50 ML SYG IV ONE (06:30)
[2016-10-12] MEDS: PIPER-TAZO 2.25 GM (PMX) 50 ML IVPB SCH ×3 (06:36→22:05)
[2016-10-12] MEDS: PANTOPRAZOLE (EC) 40 MG TAB PO SCH (06:36)
[2016-10-12] MEDS ORDERED: SOD CHLORIDE 0.9% 250 ML IV* ONE (06:51)
[2016-10-12] MEDS: LEVOTHYROXINE 88 MCG TAB PO SCH (07:00)
[2016-10-12 07:09] LABS: ABNORMAL IP MESSAGE 1; BASOPHILS % 0.1 % (0.0-2.0); HEMATOCRIT 28.4 % (37.0-47.0); HEMOGLOBIN 9.1 g/dl (12.0-16.0); LYMPHOCYTES % 3.7 % (15.0-51.0); MEAN CORPUSCULAR HEMOGLOBIN 30.7 pg (29.0-33.0); MEAN CORPUSCULAR VOLUME 95.9 fl (82.0-101.0); MEAN PLATELET VOLUME 10.6 fl (7.4-10.4); MONOCYTE # 1.1 10^3/ul (0.3-0.9); MONOCYTES % 3.8 % (0.0-11.0); NEUTROPHIL # 24.7 10^3/ul (1.6-7.5); NEUTROPHILS % 90.5 % (39.0-77.0); NUCLEATED RED BLOOD CELLS # 0.8 10^3/ul (0.0-0.0); NUCLEATED RED BLOOD CELLS% 2.9 /100WBC (0.0-0.0); PLATELET COUNT 70 10^3/UL (140-415); RED BLOOD COUNT 2.96 10^6/ul (4.20-5.40); RED CELL DISTRIBUTION WIDTH 19.1 % (11.5-14.5); WHITE BLOOD COUNT 27.4 10^3/ul (4.8-10.8)
[2016-10-12 07:11] LABS: POSITIVE DIFF @See below
[2016-10-12] MEDS: HYDROCODONE/APAP (10/325) TAB PO SCH ×3 (07:30→23:07)
[2016-10-12] MEDS: INSULIN ASPART [NOVOLOG] 3 ML PEN SC SCH ×4 (07:35→20:28)
[2016-10-12] MEDS: SODIUM BICARBONATE (IV ADD) 150 MEQ in DEXTROSE 5% 850 ML IV SCH ×4 (07:35→22:12)
[2016-10-12] MEDS: SEVELAMER 800 MG TAB PO SCH ×3 (07:35→17:35)
[2016-10-12 07:43] LABS: INR 3.17; PT RATIO 2.6
[2016-10-12 07:56] LABS: CALCIUM 7.4 mg/dl (8.4-10.2); CREATININE 2.76 mg/dl (0.44-1.00); PHOSPHORUS 6.5 mg/dl (2.5-4.9); POTASSIUM 4.5 mmol/L (3.5-5.1)
--- NOTE | 2016-10-12 08:20 | RADRPT ---
PROCEDURE: Chest radiograph. CLINICAL INDICATION: Concern for infiltrates. TECHNIQUE: Single portable frontal view. COMPARISON: Radiograph from 10/11/2016 and 04/14/2016. FINDINGS: Dual-lumen right internal jugular central venous catheter terminates at the inferior cavoatrial junc tion. The endotracheal tube terminates above the 2 cm above the renee. The enteric tube terminates within the gastric body. The left chest pacemaker with leads terminating in the right atrium and right ventricle. There is a right lower lobe pneumonia. PA costophrenic sulcus is blunted which suggests a superimposed small pleural effusion. The left lung is clear. Cardiomegaly. Median sternotomy with coronary arterial bypass graft. The stomach is distended with gas. IMPRESSION: 1. Overall, no change in aeration of the lungs since yesterday's examination on the differences in t echnique. A right lower lung pneumonia and pleural effusion is present. 2. Cardiomegaly. 3. Support devices are in appropriate position. RPTAT: PP Physician Wai Date Time Electronically viewed and signed by Physician Wai on 10/12/2016 08:20 LG/
[2016-10-12] MEDS: CLOPIDOGREL 75 MG TAB PO SCH (09:00)
[2016-10-12] MEDS: ASPIRIN 81 MG TAB PO SCH (09:00)
[2016-10-12] MEDS: METOPROLOL (XL) 25 MG TAB PO SCH (09:00)
[2016-10-12] MEDS ORDERED: PHENYLephrine 40 MG in DEXTROSE 5% 496 ML IV SCH (09:00)
[2016-10-12] MEDS: NORepinephrine 32 MG in DEXTROSE 5% 218 ML IV SCH ×3 (09:04→23:46)
[2016-10-12] MEDS: PHENYLephrine 80 MG in DEXTROSE 5% 242 ML IV SCH ×3 (09:05→22:17)
[2016-10-12] MEDS: POLYETHYLENE GLYCOL 17 GM PACKET PO SCH (09:06)
[2016-10-12] MEDS: FERROUS SULFATE (EC) 325 MG TAB PO SCH (09:06)
[2016-10-12] MEDS: MULTIVIT/CA CARB/B CMPLX/FA TAB PO SCH (09:06)
--- NOTE | 2016-10-12 09:06 | PN ---
DATE: 10/12/2016 SUBJECTIVE DATA: The patient yesterday was under code arrest. The patient, approximately around 17, 1800 was found to be unresponsive and code blue was called. The patient had chest compressions performed and was given epinephrine. The patient was noted to be in PA multiple times. The patient had spontaneous return of circulation and was transferred to the intensive care unit where she was placed on a pressor support as she was in shock. The patient noted also to be anemic with a hemoglobin 6.6, was typed and crossed and transfused with two units of packed red blood cells. The patient also to receive FFP. Overnight, the patient's clinical course continued to decline as the patient had to be placed on 3 pressors. She is on FiO2 of 100 percent. The patient is also on bicarbonate drip due to persistent acidemia. Please note, I spoke with the patient's daughter, Khloe, last night and this morning. I updated her on her mother's condition. All questions were answered. Please also note I discussed the case with Dr. Bianchi, vascular surgeon. OBJECTIVE DATA: VITAL SIGNS: Blood pressure is 81/50, respirations 24, pulse 60, temperature 95.0. The patient is critically ill. HEENT: Head is normocephalic. Pupils are reactive to light. NECK: Supple. HEART: Regular rate. Tachycardic. LUNGS: Diminished breath sounds at the base. ABDOMEN: Soft, nontender to palpation. EXTREMITIES: Negative for clubbing or cyanosis. Noted wound on the right lower extremity. DERMATOLOGIC: Clean. No rashes. MUSCULOSKELETAL: No joint effusions. NEUROLOGIC: Limited exam as patient is obtunded. LABORATORY AND DIAGNOSTIC DATA: White count 27.4, hemoglobin 9.1, hematocrit 28.4, platelet count 70. The patient's BMP is pending. ABG shows a pH 7.073, pCO2 30, PO2 95. Repeat cultures have been pending. The patient's chest x-ray shows pulmonary vascular congestion and right pleural effusion. ASSESSMENT AND PLAN: 1. Shock. Etiology may be multifactorial. Possible acute bleed. Internal, questionable sepsis. The patient had a significant decline in hemoglobin levels, a drop of over 3 g. Concerning for possible acute internal bleeding. The possibility of ischemia is a consideration given elevated lactic acid levels. Plan at this point is to continue supportive care. Continue blood transfusions. Continue FFP. Continue pressor support. Continue current antibiotic therapy. The patient will need a CT scan of the abdomen and pelvis once clinically stable. Will follow up with Dr. Bianchi, vascular surgeon, for further recommendations. Monitor closely. 2. Status post code arrest. Etiology is concerning for possible acute bleed, shock. The patient is currently on pressure support as stated above. Will follow up with Cardiology for further recommendations. 3. Anemia. Underlying cause is concerning for possible internal bleed. The patient is status post blood transfusion, 2 units. Will receive 2 more units of packed red blood cells. Will continue to monitor H and H levels. The patients antiplatelets have been held. 4. Ventilatory-dependent respiratory failure. Vent settings reviewed. ABGs reviewed. Will follow up with Pulmonary for vent settings management. 5. Severe anion gap metabolic acidemia secondary to lactic acidosis. The patient is currently receiving bicarbonate drip, will continue. Will continue to treat underlying cause of shock. Continue to monitor serial lactic acid levels. 6. End-stage renal disease. The patient had an hour of hemodialysis yesterday. Clinically unstable for dialysis at this time. Will monitor. 7. Peripheral vascular disease with right lower extremity gangrene. The patient is status post angiogram with stenting of the iliac artery. The patient is status post left lower extremity angiogram. Will continue to monitor. Follow up with vascular surgery for further recommendations. 8. Coronary artery disease. Continue medical management. 9. Diabetes. Continue Accu-Chek and sliding scale. 10. Hypothyroidism. 11. Mineral bone disorder. Monitor calcium and phosphorus levels. 12. Acute encephalopathy. Etiology secondary to toxic metabolic code arrest. Continue to monitor. 13. Leukocytosis. Etiology is likely secondary to shock and stress. Continue to observe. Please note, I spent up over 30 minutes of critical care time with this patient. I discussed the case with the patient's daughter at that time. Dictated By: Ihsan Johns DO /[email or web address] /Document#: [id number]
[2016-10-12] MEDS: MUPIROCIN 2% 22 GM OINT TOP SCH ×2 (09:07→20:27)
--- NOTE | 2016-10-12 10:42 | CONS ---
Date/Time of Note Date/Time of Note DATE: 10/12/16 TIME: 10:36 Assessment/Plan Assessment/Plan Additional Assessment/Plan Ventilator setting; AC of 14, tidal volume 500, PEEP of 5, 100% FiO2. Patient currently on vasopressin at 0.04 U/min, Levophed 30 mics per minute, phenylephrine drip at 300 mics per minute. Chest x-ray was reviewed from today which is showing minimal right lower lobe atelectatic changes. Endotracheal tube is at an adequate level. Assessment and recommendations; next 1. Patient admitted for proximity cellulitis then had cardiac arrest event requiring along CPR. 2. Severe metabolic acidosis. 3. Multiple other comorbidities including history of hypertension, diabetes, end-stage renal disease and peripheral vascular disease, status post re- vascularization. 4. Colopathy. 5. Anemia. Next Continue current supportive care. Motor And Generator Brush Cutter sodium bicarbonate. Obtain a follow -up ABG. Prognosis is extremely guarded. Consultation Date/Type/Reason Admit Date/Time Sep 26, 2016 at 16:53 Date of Consultation: Oct 12, 2016 Type of Consultation: Pulmonary/critical care Reason for Consultation Pulmonary consultation requested for evaluation of respiratory failure. Next History of presenting illness; patient is a 75-year-old lady who was admitted last month for lower extremity cellulitis. Patient has had revascularization involving lower extremity as well as wound debridement, however early this morning the patient had respiratory decompensation and the patient had a cardiac arrest event requiring along CPR with revival of vital signs. By the time I saw the patient I see the patient is orally intubated, and unresponsive on 3 pressors at high dose for blood pressure maintenance. The patient is completely unresponsive. Past medical history; 1. Patient with history of diabetes, 2. Peripheral vascular disease. 3. History of CABG. 4. End-stage renal disease, on hemodialysis. 4. Hypertension. 5. Anemia. Medications; reviewed. Allergies; none. Social history; patient never smoked. Family history; patient does have a supportive family. Various family members of diabetes hypertension. Review of systems; currently unable to be obtained. General exam; elderly woman, orally intubated, unresponsive, Gastrointestinal: no complaints Genitourinary: no complaints Musculoskeletal: no complaints Skin: no complaints Neurologic: no complaints Psychological: no complaints Social History Smoking Status: Never smoker Exam/Review of Systems Vital Signs Vitals Vital Signs Date Time Temp Pulse Resp B/P Pulse Ox O2 Delivery O2 Flow Rate FiO2 10/12/16 09:45 119 27 101/51 100 10/12/16 09:24 100 10/12/16 07:45 97.6 10/12/16 05:00 Mechanical Ventilator 10/10/16 17:02 2.0 Intake and Output 10/11/16 10/11/16 10/12/16 15:00 23:00 07:00 Intake Total 500 ml 946.875 ml 1497.27 ml Output Total 500 ml 800 ml Balance 0 ml 146.875 ml 1497.27 ml Exam HEENT exam; supple neck, positive JVD. No lymphadenopathy. Midline trachea. No thyromegaly. Orally intubated. Patient has bilateral intraocular lens implants. Has multiple carious teeth. Chest exam; diminished but clear breath sound. S1-S2 audible, no murmurs. Regular rhythm. There is a dialysis catheter in the right subclavian area. Abdomen exam; soft, bowel sounds are absent. No organomegaly felt. Extremity exam; multiple areas of ecchymoses are present in all 4 extremities. Dressing applied in both lower extremities. PRACTICE CONSULTANT exam; patient is unresponsive. Results Result Diagram: 10/12/16 0630 10/12/16 0630 Results 24 hrs Laboratory Tests Test 10/11/16 11:49 10/11/16 17:12 10/11/16 21:39 10/11/16 22:00 Bedside Glucose 97 202 Sodium Level 140 Potassium Level 3.5 Chloride Level 94 L Carbon Dioxide Level 14 #L Anion Gap 36 #H Blood Urea Nitrogen 19 Creatinine 2.44 H Glucose Level 102 # Lactic Acid Level 18.2 *H Calcium Level 10.7 #H Phosphorus Level 6.7 #H Magnesium Level 2.2 Creatine Kinase 102 Creatine Kinase Index 9.8 Creatinine Kinase MB (Mass) 9.99 H Troponin I 0.142 *H Blood Gas Specimen Source Blood arterial Arterial Blood Date Drawn 10/11/2016 10:30:55 PM Arterial Blood pH (Temp corrected) 7.200 *L Arterial Blood pCO2 (Temp correct) 33.4 L Arterial Blood pO2 (Temp corrected) 199.3 H Arterial Blood HCO3 12.8 L Arterial Blood Base Excess -14.1 L Arterial Blood Oxygen Saturation 98.3 Enmanuel Test ACCEPTAB Arterial Blood Gas Puncture Site Right Radial Arterial Blood Carboxyhemoglobin 0.2 Arterial Blood Methemoglobin 0.4 Blood Gas A-a O2 Differential 480.3 H Oxyhemoglobin Percent 97.7 Total Hemoglobin 7.1 L Blood Gas Temperature 37.0 Blood Gas Respiration Rate 14.0 Blood Gas Actual Respiration Rate 20 Blood Gas Modality VENT - AC FiO2 100.0 Blood Gas Tidal Volume 400.0 Blood Gas Low PEEP Setting 5.0 Blood Gas Critical Value Read Back MLIBATIQUE RN Blood Gas Notified Whom MA Blood Gas Notified Time 10/11/2016 10:40:40 PM Test 10/11/16 22:15 10/11/16 23:44 10/12/16 05:00 10/12/16 06:30 White Blood Count 20.2 #H 27.4 #H Red Blood Count 2.16 #L 2.96 #L Hemoglobin 6.6 #*L 9.1 #L Hematocrit 21.8 #L 28.4 #L Mean Corpuscular Volume 100.9 95.9 Mean Corpuscular Hemoglobin 30.6 30.7 Mean Corpuscular Hemoglobin Concent 30.3 L 32.0 Red Cell Distribution Width 21.0 H 19.1 H Platelet Count 77 #L 70 L Mean Platelet Volume 10.8 H 10.6 H Neutrophils % 84.4 H 90.5 H Lymphocytes % 7.4 L 3.7 L Monocytes % 5.4 3.8 Eosinophils % 0.0 0.0 Basophils % 0.1 0.1 Nucleated Red Blood Cells % 0.9 H 2.9 H Neutrophils # 17.0 H 24.7 H Lymphocytes # 1.5 1.0 Monocytes # 1.1 H 1.1 H Eosinophils # 0.0 0.0 Basophils # 0.0 0.0 Nucleated Red Blood Cells # 0.2 H 0.8 H Activated Partial Thromboplast Time 67.1 H Bedside Glucose 96 Blood Gas Specimen Source Blood arterial Arterial Blood Date Drawn 10/12/2016 5:30:27 AM Arterial Blood pH (Temp corrected) 7.073 *L Arterial Blood pCO2 (Temp correct) 30.0 L Arterial Blood pO2 (Temp corrected) 106.7 H Arterial Blood HCO3 8.6 *L Arterial Blood Base Excess -20.2 L Arterial Blood Oxygen Saturation 95.0 Enmanuel Test ACCEPTAB Arterial Blood Gas Puncture Site Right Radial Arterial Blood Carboxyhemoglobin 0.3 Arterial Blood Methemoglobin 0.2 Blood Gas A-a O2 Differential 576.3 H Oxyhemoglobin Percent 94.5 Total Hemoglobin 10.2 L Blood Gas Temperature 37.0 Blood Gas Respiration Rate 14.0 Blood Gas Actual Respiration Rate 25 Blood Gas Modality VENT - AC FiO2 100.0 Blood Gas Tidal Volume 400.0 Blood Gas Low PEEP Setting 5.0 Blood Gas Inspiratory Pressure 24.0 Blood Gas Critical Value Read Back Diallo HARDY RN Blood Gas Notified Whom MG Blood Gas Notified Time 10/12/2016 5:41:55 AM Prothrombin Time 33.0 #H Prothrombin Time Ratio 2.6 INR International Normalized Ratio 3.17 Sodium Level 143 Potassium Level 4.5 Chloride Level 96 L Carbon Dioxide Level 15 L Anion Gap 37 H Blood Urea Nitrogen 19 Creatinine 2.76 H Glucose Level 116 Lactic Acid Level 19.4 *H Calcium Level 7.4 L Phosphorus Level 6.5 H Magnesium Level 2.0 Test 10/12/16 08:21 Bedside Glucose 132 Medications Medications Current Medications Ferrous Sulfate (Ferrous Sulfate (Ec)) 325 mg DAILY PO Last administered on 10/12 09:06; Admin Dose 325 MG; Start 09/27/16 at 09:00 Hydralazine HCl (Apresoline) 10 mg BID PO Last administered on 10/07/16 21:46 ; Admin Dose 10 MG; Start 09/27/16 at 09:00 Metoprolol Succinate (Toprol Xl) 25 mg DAILY PO Last administered on 10/08/16 09:20; Admin Dose 25 MG; Start 09/27/16 at 09:00 Multivit/Ca Carb/ B Cmplx/FA/Prenat (Billie-Roge) 1 tab DAILY PO Last administered on 10/12/16 09:06; Admin Dose 1 TAB; Start 09/27/16 at 09:00 Polyethylene Glycol (Miralax) 17 gm DAILY PO Last administered on 10/12/16 09: 06; Admin Dose 17 GM; Start 09/27/16 at 09:00 Pantoprazole (Protonix Tab) 40 mg DAILY@06 PO Last administered on 10/12/16 06: 36; Admin Dose 40 MG; Start 09/27/16 at 06:00 Zolpidem Tartrate (Ambien) 5 mg HS PRN PO INSOMNIA; Start 09/27/16 at 01:00 Acetaminophen (Tylenol Tab) 650 mg Q6H PRN PO PAIN AND OR ELEVATED TEMP Last administered on 10/11/16 12:45; Admin Dose 650 MG; Start 09/27/16 at 01:00 Ondansetron HCl (Zofran Inj) 4 mg Q6H PRN IV NAUSEA AND/OR VOMITING Last administered on 10/11/16 14:36; Admin Dose 4 MG; Start 09/27/16 at 01:00 IV Flush (NS 10 ml) 3 ml Q8 IV Last administered on 10/12/16 06:36; Admin Dose 10 ML; Start 09/27/16 at 06:00 Diagnostic Test (Pha) (Accu-Chek) 1 ea 02 XX Last administered on 10/02/16 02: 12; Admin Dose 1 EA; Start 09/28/16 at 02:00 Miscellaneous Information 1 ea NOTE XX ; Start 09/27/16 at 07:30 Glucose (Glutose) 15 gm Q15M PRN PO DECREASED GLUCOSE; Start 09/27/16 at 07:30 Glucose (Glutose) 22.5 gm Q15M PRN PO DECREASED GLUCOSE; Start 09/27/16 at 07: 30 Dextrose (D50w Syringe) 25 ml Q15M PRN IV DECREASED GLUCOSE; Start 09/27/16 at 07:30 Dextrose (D50w Syringe) 50 ml Q15M PRN IV DECREASED GLUCOSE; Start 09/27/16 at 07:30 Glucagon (Glucagen) 1 mg Q15M PRN IM DECREASED GLUCOSE; Start 09/27/16 at 07:30 Glucose (Glutose) 15 gm Q15M PRN BUCCAL DECREASED GLUCOSE; Start 09/27/16 at 07 :30 Acetaminophen/ Hydrocodone Bitart ([place] (10/325)) 1.5 tab Q8H PO Last administered on 10/11/16 06:46; Admin Dose 1.5 TAB; Start 09/27/16 at 15:30 Clonidine (Catapres) 0.1 mg Q6H PRN PO SBP>170; Start 09/27/16 at 12:00 Mupirocin (Bactroban) 1 applic BID TOP Last administered on 10/12/16 09:07; Admin Dose 1 APPLIC; Start 09/28/16 at 21:00 Atorvastatin Calcium (Lipitor) 40 mg DAILY@21 PO Last administered on 10/10/16 20:58; Admin Dose 40 MG; Start 09/29/16 at 21:00 Levofloxacin (Levaquin) 250 mg Q48H PO Last administered on 10/10/16 17:55; Admin Dose 250 MG; Start 09/30/16 at 15:00 Aspirin (Aspirin) 81 mg DAILY PO Last administered on 10/11/16 09:20; Admin Dose 81 MG; Start 10/05/16 at 09:00 Clopidogrel Bisulfate 75 mg 75 mg DAILY PO Last administered on 10/11/16 09:19 ; Admin Dose 75 MG; Start 10/05/16 at 09:00 Vancomycin HCl (Vancocin) 250 ml @ 125 mls/hr Q96H IVPB Last administered on 17:48; Admin Dose 125 MLS/HR; Start 10/05/16 at 18:00 Morphine Sulfate 2 mg 2 mg Q2H PRN IV PAIN Last administered on 10/10/16 16:33 ; Admin Dose 2 MG; Start 10/09/16 at 14:30 Piperacillin Sod/ Tazobactam Sod 50 ml @ 100 mls/hr Q8 IVPB Last administered on 10/12/16 06:36; Admin Dose 100 MLS/HR; Start 10/11/16 at 22:00 Vasopressin 60 unit/Dextrose 60 ml @ 1.2 mls/hr Q12H IV Last administered on 04:12; Admin Dose 2.4 MLS/HR; Start 10/12/16 at 03:00 Sodium Bicarbonate 150 meq/Dextrose 1,000 ml @ 150 mls/hr Q6H40M IV Last administered on 10/12/16 07:35; Admin Dose 150 MLS/HR; Start 10/12/16 at 07:00 Norepinephrine 32 mg/Dextrose 250 ml @ 0.46 mls/hr TITRATE IV Last administered on 10/12/16 09:04; Admin Dose 14.06 MLS/HR; Start 10/12/16 at 07:00 Phenylephrine HCl/ Dextrose (Fabrizio-Syneph/D5W) 250 ml @ 18.75 mls/ hr TITRATE IV Last administered on 10/12/16 09:05; Admin Dose 56.25 MLS/HR; Start 10/12/16 at 07:00 PILLO FRY Oct 12, 2016 10:42
[2016-10-12] MEDS ORDERED: DOPamine-D5W 1.6 MG/ML 250 ML ONE (13:03)
[2016-10-12] MEDS: DOPamine-D5W 1.6 MG/ML 250 ML IV SCH (13:29)
[2016-10-12] MEDS: EPOETIN 4000 UNITS/1 ML INJ (ESRD) SC SCH (13:57)
[2016-10-12 13:58] LABS: HEMATOCRIT 27.1 % (37.0-47.0); HEMOGLOBIN 8.4 g/dl (12.0-16.0)
--- NOTE | 2016-10-12 14:20 | CONS ---
Date/Time of Note Date/Time of Note DATE: 10/12/16 TIME: 14:12 Assessment/Plan Assessment/Plan Chief Complaint/Hosp Course IMP: 1.Cardiomyopathy with low EF 2.Hypotension/shock-now on multiple pressors 3.HL 4.cad 5. Pad s/p peripheral bypass 6. ESRD on HD 7. Non-healing LE wound s/p R ext illiac stenting and METAL FURNITURE GLAZIER to graft and now athrectomy and METAL FURNITURE GLAZIER to L SFA/popliteal/AT 8. PPM 9. Anemia-worsening ? from bleeding at AVF site 10.REsp failure now s/p intubation 11.Cardiopulmonary arrest s/p ACLS with return of a perfusing rhythm 12. PNA by cxr 14. Positive troponin-minimal likely type 2 demand infarct 15. Acidosis Recc: -Tele -serial ecg's -Continue pressor support with weaning as possible starting with Fabrizio given h/o low EF and this being pure afterload -Continue asa/plavix -Continue statin -HD for volume removal only as possible at this time given BP/need for pressor support -Continue abx's and f/u cx data -wean vent suppport as possible -trend cardiac enzymes -correct acidosis as you are doing Problems: Consultation Date/Type/Reason Admit Date/Time Sep 26, 2016 at 16:53 Initial Consult Date 09/27/2016 Type of Consultation: cardiology Reason for Consultation Hypotension/positive troponin/cardiomyopathy Referring Provider: BRANDI ERICKSON DO Exam/Review of Systems Vital Signs Vitals Vital Signs Date Time Temp Pulse Resp B/P Pulse Ox O2 Delivery O2 Flow Rate FiO2 10/12/16 12:00 97.6 79 24 90/62 100 10/12/16 11:40 100 10/12/16 05:00 Mechanical Ventilator 10/10/16 17:02 2.0 Intake and Output 10/11/16 10/11/16 10/12/16 15:00 23:00 07:00 Intake Total 500 ml 946.875 ml 1497.27 ml Output Total 500 ml 800 ml Balance 0 ml 146.875 ml 1497.27 ml Exam Review of Systems: CONSTITUTIONAL: sedated PULMONARY: intubated CARDIOVASCULAR: No obvious chest pain/palpitations GASTROINTESTINAL: No nausea/vomiting. GENITOURINARY: No hematuria/dysuria. MUSCULOSKELETAL: No myagias/arthalgias. PSYCHIATRIC: The patient denies depression. NEUROLOGIC: sedated Constitutional: other (sedated) Head: normocephalic ENMT: mucosa pink and moist Neck: jvd (9 cm water), supple Respiratory: diminished breath sounds (at bases/B) Cardiovascular: regular rate and rhythm Gastrointestinal: non-tender, soft Musculoskeletal: muscle weakness (GENERALIZED) Extremities: edema (none), other (feet covered by dressing with skin breakdown and areas of gangrene) Results Result Diagram: 10/12/16 1345 10/12/16 0630 Results 24 hrs Laboratory Tests Test 10/11/16 17:12 10/11/16 21:39 10/11/16 22:00 10/11/16 22:15 Bedside Glucose 202 Sodium Level 140 Potassium Level 3.5 Chloride Level 94 L Carbon Dioxide Level 14 #L Anion Gap 36 #H Blood Urea Nitrogen 19 Creatinine 2.44 H Glucose Level 102 # Lactic Acid Level 18.2 *H Calcium Level 10.7 #H Phosphorus Level 6.7 #H Magnesium Level 2.2 Creatine Kinase 102 Creatine Kinase Index 9.8 Creatinine Kinase MB (Mass) 9.99 H Troponin I 0.142 *H Blood Gas Specimen Source Blood arterial Arterial Blood Date Drawn 10/11/2016 10:30:55 PM Arterial Blood pH (Temp corrected) 7.200 *L Arterial Blood pCO2 (Temp correct) 33.4 L Arterial Blood pO2 (Temp corrected) 199.3 H Arterial Blood HCO3 12.8 L Arterial Blood Base Excess -14.1 L Arterial Blood Oxygen Saturation 98.3 Enmanuel Test ACCEPTAB Arterial Blood Gas Puncture Site Right Radial Arterial Blood Carboxyhemoglobin 0.2 Arterial Blood Methemoglobin 0.4 Blood Gas A-a O2 Differential 480.3 H Oxyhemoglobin Percent 97.7 Total Hemoglobin 7.1 L Blood Gas Temperature 37.0 Blood Gas Respiration Rate 14.0 Blood Gas Actual Respiration Rate 20 Blood Gas Modality VENT - AC FiO2 100.0 Blood Gas Tidal Volume 400.0 Blood Gas Low PEEP Setting 5.0 Blood Gas Critical Value Read Back MLIBATIQUE RN Blood Gas Notified Whom MA Blood Gas Notified Time 10/11/2016 10:40:40 PM White Blood Count 20.2 #H Red Blood Count 2.16 #L Hemoglobin 6.6 #*L Hematocrit 21.8 #L Mean Corpuscular Volume 100.9 Mean Corpuscular Hemoglobin 30.6 Mean Corpuscular Hemoglobin Concent 30.3 L Red Cell Distribution Width 21.0 H Platelet Count 77 #L Mean Platelet Volume 10.8 H Neutrophils % 84.4 H Lymphocytes % 7.4 L Monocytes % 5.4 Eosinophils % 0.0 Basophils % 0.1 Nucleated Red Blood Cells % 0.9 H Neutrophils # 17.0 H Lymphocytes # 1.5 Monocytes # 1.1 H Eosinophils # 0.0 Basophils # 0.0 Nucleated Red Blood Cells # 0.2 H Activated Partial Thromboplast Time 67.1 H Test 10/11/16 23:44 10/12/16 05:00 10/12/16 06:30 10/12/16 08:21 Bedside Glucose 96 132 Blood Gas Specimen Source Blood arterial Arterial Blood Date Drawn 10/12/2016 5:30:27 AM Arterial Blood pH (Temp corrected) 7.073 *L Arterial Blood pCO2 (Temp correct) 30.0 L Arterial Blood pO2 (Temp corrected) 106.7 H Arterial Blood HCO3 8.6 *L Arterial Blood Base Excess -20.2 L Arterial Blood Oxygen Saturation 95.0 Enmanuel Test ACCEPTAB Arterial Blood Gas Puncture Site Right Radial Arterial Blood Carboxyhemoglobin 0.3 Arterial Blood Methemoglobin 0.2 Blood Gas A-a O2 Differential 576.3 H Oxyhemoglobin Percent 94.5 Total Hemoglobin 10.2 L Blood Gas Temperature 37.0 Blood Gas Respiration Rate 14.0 Blood Gas Actual Respiration Rate 25 Blood Gas Modality VENT - AC FiO2 100.0 Blood Gas Tidal Volume 400.0 Blood Gas Low PEEP Setting 5.0 Blood Gas Inspiratory Pressure 24.0 Blood Gas Critical Value Read Back Diallo HARDY RN Blood Gas Notified Whom MG Blood Gas Notified Time 10/12/2016 5:41:55 AM White Blood Count 27.4 #H Red Blood Count 2.96 #L Hemoglobin 9.1 #L Hematocrit 28.4 #L Mean Corpuscular Volume 95.9 Mean Corpuscular Hemoglobin 30.7 Mean Corpuscular Hemoglobin Concent 32.0 Red Cell Distribution Width 19.1 H Platelet Count 70 L Mean Platelet Volume 10.6 H Neutrophils % 90.5 H Lymphocytes % 3.7 L Monocytes % 3.8 Eosinophils % 0.0 Basophils % 0.1 Nucleated Red Blood Cells % 2.9 H Neutrophils # 24.7 H Lymphocytes # 1.0 Monocytes # 1.1 H Eosinophils # 0.0 Basophils # 0.0 Nucleated Red Blood Cells # 0.8 H Prothrombin Time 33.0 #H Prothrombin Time Ratio 2.6 INR International Normalized Ratio 3.17 Sodium Level 143 Potassium Level 4.5 Chloride Level 96 L Carbon Dioxide Level 15 L Anion Gap 37 H Blood Urea Nitrogen 19 Creatinine 2.76 H Glucose Level 116 Lactic Acid Level 19.4 *H Calcium Level 7.4 L Phosphorus Level 6.5 H Magnesium Level 2.0 Test 10/12/16 12:40 10/12/16 13:45 Bedside Glucose 188 Hemoglobin 8.4 L Hematocrit 27.1 L Medications Medications Current Medications Ferrous Sulfate (Ferrous Sulfate (Ec)) 325 mg DAILY PO Last administered on 10/12 09:06; Admin Dose 325 MG; Start 09/27/16 at 09:00 Hydralazine HCl (Apresoline) 10 mg BID PO Last administered on 10/07/16 21:46 ; Admin Dose 10 MG; Start 09/27/16 at 09:00 Metoprolol Succinate (Toprol Xl) 25 mg DAILY PO Last administered on 10/08/16 09:20; Admin Dose 25 MG; Start 09/27/16 at 09:00 Multivit/Ca Carb/ B Cmplx/FA/Prenat (Billie-Roge) 1 tab DAILY PO Last administered on 10/12/16 09:06; Admin Dose 1 TAB; Start 09/27/16 at 09:00 Polyethylene Glycol (Miralax) 17 gm DAILY PO Last administered on 10/12/16 09: 06; Admin Dose 17 GM; Start 09/27/16 at 09:00 Pantoprazole (Protonix Tab) 40 mg DAILY@06 PO Last administered on 10/12/16 06: 36; Admin Dose 40 MG; Start 09/27/16 at 06:00 Zolpidem Tartrate (Ambien) 5 mg HS PRN PO INSOMNIA; Start 09/27/16 at 01:00 Acetaminophen (Tylenol Tab) 650 mg Q6H PRN PO PAIN AND OR ELEVATED TEMP Last administered on 10/11/16 12:45; Admin Dose 650 MG; Start 09/27/16 at 01:00 Ondansetron HCl (Zofran Inj) 4 mg Q6H PRN IV NAUSEA AND/OR VOMITING Last administered on 10/11/16 14:36; Admin Dose 4 MG; Start 09/27/16 at 01:00 IV Flush (NS 10 ml) 3 ml Q8 IV Last administered on 10/12/16 06:36; Admin Dose 10 ML; Start 09/27/16 at 06:00 Diagnostic Test (Pha) (Accu-Chek) 1 ea 02 XX Last administered on 10/02/16 02: 12; Admin Dose 1 EA; Start 09/28/16 at 02:00 Miscellaneous Information 1 ea NOTE XX ; Start 09/27/16 at 07:30 Glucose (Glutose) 15 gm Q15M PRN PO DECREASED GLUCOSE; Start 09/27/16 at 07:30 Glucose (Glutose) 22.5 gm Q15M PRN PO DECREASED GLUCOSE; Start 09/27/16 at 07: 30 Dextrose (D50w Syringe) 25 ml Q15M PRN IV DECREASED GLUCOSE; Start 09/27/16 at 07:30 Dextrose (D50w Syringe) 50 ml Q15M PRN IV DECREASED GLUCOSE; Start 09/27/16 at 07:30 Glucagon (Glucagen) 1 mg Q15M PRN IM DECREASED GLUCOSE; Start 09/27/16 at 07:30 Glucose (Glutose) 15 gm Q15M PRN BUCCAL DECREASED GLUCOSE; Start 09/27/16 at 07 :30 Acetaminophen/ Hydrocodone Bitart ([place] (10/325)) 1.5 tab Q8H PO Last administered on 10/11/16 06:46; Admin Dose 1.5 TAB; Start 09/27/16 at 15:30 Clonidine (Catapres) 0.1 mg Q6H PRN PO SBP>170; Start 09/27/16 at 12:00 Mupirocin (Bactroban) 1 applic BID TOP Last administered on 10/12/16 09:07; Admin Dose 1 APPLIC; Start 09/28/16 at 21:00 Atorvastatin Calcium (Lipitor) 40 mg DAILY@21 PO Last administered on 10/10/16 20:58; Admin Dose 40 MG; Start 09/29/16 at 21:00 Levofloxacin (Levaquin) 250 mg Q48H PO Last administered on 10/10/16 17:55; Admin Dose 250 MG; Start 09/30/16 at 15:00 Aspirin (Aspirin) 81 mg DAILY PO Last administered on 10/11/16 09:20; Admin Dose 81 MG; Start 10/05/16 at 09:00; Status Future Hold Clopidogrel Bisulfate 75 mg 75 mg DAILY PO Last administered on 10/11/16 09:19 ; Admin Dose 75 MG; Start 10/05/16 at 09:00; Status Future Hold Vancomycin HCl (Vancocin) 250 ml @ 125 mls/hr Q96H IVPB Last administered on 17:48; Admin Dose 125 MLS/HR; Start 10/05/16 at 18:00 Morphine Sulfate 2 mg 2 mg Q2H PRN IV PAIN Last administered on 10/10/16 16:33 ; Admin Dose 2 MG; Start 10/09/16 at 14:30 Piperacillin Sod/ Tazobactam Sod 50 ml @ 100 mls/hr Q8 IVPB Last administered on 10/12/16 13:11; Admin Dose 100 MLS/HR; Start 10/11/16 at 22:00 Vasopressin 60 unit/Dextrose 60 ml @ 1.2 mls/hr Q12H IV Last administered on 04:12; Admin Dose 2.4 MLS/HR; Start 10/12/16 at 03:00 Sodium Bicarbonate 150 meq/Dextrose 1,000 ml @ 150 mls/hr Q6H40M IV Last administered on 10/12/16 07:35; Admin Dose 150 MLS/HR; Start 10/12/16 at 07:00 Norepinephrine 32 mg/Dextrose 250 ml @ 0.46 mls/hr TITRATE IV Last administered on 10/12/16 09:04; Admin Dose 14.06 MLS/HR; Start 10/12/16 at 07:00 Phenylephrine HCl/ Dextrose (Fabrizio-Syneph/D5W) 250 ml @ 18.75 mls/ hr TITRATE IV Last administered on 10/12/16 12:59; Admin Dose 56.25 MLS/HR; Start 10/12/16 at 07:00 Miscellaneous Information 1 ONCE ONCE XX ; Start 10/13/16 at 17:00; Stop at 17:01 Dopamine HCl/ Dextrose 250 ml @ 3.63 mls/hr TITRATE IV Last administered on 13:29; Admin Dose 9.075 MLS/HR; Start 10/12/16 at 13:30 YI RODRIGUEZ Oct 12, 2016 14:20
[2016-10-12] MEDS: LEVOFLOXACIN 250 MG TAB PO SCH (14:26)
--- NOTE | 2016-10-12 14:31 | RADRPT ---
Vent Rate: 70 bpm RR Interval: 0 msec ND Interval: 0 msec QRS Duration: 190 msec QT Interval: 466 msec QTC Interval: 503 msec P-R-T [place]: 0 - -76 - 107 degrees Electronic ventricular pacemaker Electronically Signed By: Bobo Benson [id number]
[2016-10-12 19:26] LABS: ABNORMAL IP MESSAGE 1; BASOPHIL # 0.1 10^3/ul (0.0-0.1); BASOPHILS % 0.3 % (0.0-2.0); HEMATOCRIT 32.7 % (37.0-47.0); HEMOGLOBIN 10.6 g/dl (12.0-16.0); LYMPHOCYTES # 1.5 10^3/ul (0.8-2.9); LYMPHOCYTES % 4.8 % (15.0-51.0); MEAN CORPUSCULAR HEMOGLOBIN 30.3 pg (29.0-33.0); MEAN CORPUSCULAR HGB CONC 32.4 g/dl (32.0-37.0); MEAN CORPUSCULAR VOLUME 93.4 fl (82.0-101.0); MEAN PLATELET VOLUME 12.5 fl (7.4-10.4); MONOCYTE # 1.3 10^3/ul (0.3-0.9); MONOCYTES % 4.4 % (0.0-11.0); NEUTROPHIL # 26.9 10^3/ul (1.6-7.5); NEUTROPHILS % 88.1 % (39.0-77.0); NUCLEATED RED BLOOD CELLS # 2.3 10^3/ul (0.0-0.0); NUCLEATED RED BLOOD CELLS% 7.5 /100WBC (0.0-0.0); PLATELET COUNT 72 10^3/UL (140-415); RED CELL DISTRIBUTION WIDTH 19.6 % (11.5-14.5); WHITE BLOOD COUNT 30.5 10^3/ul (4.8-10.8)
--- NOTE | 2016-10-12 19:28 | PN ---
Date/Time of Note Date/Time of Note DATE: 10/12/16 TIME: 19:24 Assessment/Plan Lines/Catheters IV Catheter Type (from Nrs): Intraosseous Tolbert in Place (from Nrs): No Assessment/Plan Chief Complaint/Hosp Course Status post angiogram and iliac artery angioplasty and stent placement SP angioplasty Right saphenous vein graft Patient with cardiac arrest Anemia Severe coagulopathy with an INR of 3.1 She is awake and alert Response to command appropriately Will transfuse blood Transfuse platelets Reverse coagulopathy Try to wean the pressors off Patient will need a CAT scan when hemodynamically more stable and is able to go to radiology Discussed with Dr. Johns Discussed with the daughter Problems: Subjective 24 Hr Interval Summary Events noted Patient cardiac arrest Transferred to intensive care unit Was found to have anemia Was given blood and blood products and started on pressor agents Currently awake alert response to command Intubated Exam/Review of Systems Vital Signs Vitals Vital Signs Date Time Temp Pulse Resp B/P Pulse Ox O2 Delivery O2 Flow Rate FiO2 10/12/16 18:15 70 28 117/54 100 10/12/16 16:05 100 10/12/16 16:00 97.5 10/12/16 05:00 Mechanical Ventilator 10/10/16 17:02 2.0 Intake and Output 10/11/16 10/11/16 10/12/16 15:00 23:00 07:00 Intake Total 500 ml 946.875 ml 1497.27 ml Output Total 500 ml 800 ml Balance 0 ml 146.875 ml 1497.27 ml Exam ENMT: mucosa pink and moist, nl external ears & nose, nl lips & teeth, nl nasal mucosa & septum Neck: non-tender, supple Respiratory: clear to auscultation, normal air movement Cardiovascular: nl pulses, regular rate and rhythm Drains Both feet are dusky Palpable femoral but no pedal pulses Results Result Diagram: 10/12/16 1345 10/12/16 0630 BALDOMERO PALOMO MD Oct 12, 2016 19:28
[2016-10-12] MEDS ORDERED: PHYTONADIONE 10 MG/ML INJ SC ONE (19:30)
[2016-10-12 19:31] LABS: POSITIVE DIFF @See below
[2016-10-12 19:32] LABS: INR 2.91; PARTIAL THROMBOPLASTIN TIME 47.1 Sec (25.0-35.0); PROTIME 30.8 Sec (12.2-14.2); PT RATIO 2.4
[2016-10-12 19:37] LABS: ALBUMIN 2.8 g/dl (3.3-4.9); ALBUMIN/GLOBULIN RATIO 1.33; BILIRUBIN,INDIRECT 0.7 mg/dl (0-1.1); BILIRUBIN,TOTAL 1.7 mg/dl (0.2-1.3); CREATININE 2.87 mg/dl (0.44-1.00); POTASSIUM 4.5 mmol/L (3.5-5.1); TOTAL PROTEIN 4.9 g/dl (6.1-8.1)
[2016-10-12] MEDS: ATORVASTATIN 40 MG TAB PO SCH (20:05)
--- NOTE | 2016-10-12 20:30 | CONS ---
Date/Time of Note Date/Time of Note DATE: 10/12/16 TIME: 20:18 Assessment/Plan Assessment/Plan Chief Complaint/Hosp Course ID PROGRESS NOTE CURRENT ABX: => Levaquin +Vanco IV post HD +Zosyn #2 TOTAL ABX DAY #16 Start-date 09/27 24H INTERVAL SUMMARY * TNS to ICU was hypotensive during dialysis yesterday ->s/p CODE Blue 10/11 ~ 2054 w/ ROSC ~2113 * (+)cardiac arrest in setting of anemia-> s/p PRBCs + pressors * 10/12/16 CXR There is a right lower lobe pneumonia. * No fever today, WBC elevated post cardiac arrest PHYSICAL EXAMINATION: GENERAL: 75 yo F HEENT: Unremarkable NECK: Supple, trachea midline. CHEST: Rise symmetrical without dyspnea HEART: RRR ABDOMEN: Soft, NT EXTREMITIES: Warm, gangrenous changes toes, DSG C/.D/I ID ASSESSMENT: 75 yo F w/ 1. s/p Cardiac arrest in setting of anemia CODE Blue 10/11 ~2054 w/ ROSC ~2113 * s/p PRBCs + pressors 2. Aspiration PNA during cardiac arrest/CPR * 10/12/16 CXR There is a right lower lobe pneumonia. 3. Sepsis on pressors w/(+)SIRS === no fevers, (+)leukocytosis * s/p staph bacteremia==> Staph "CoNS" 1/2 bottles, possibly a contaminated sample 4. 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 Severe peripheral arterial disease, * s/p 10/10/16 LLEXT Arterectomy + Angioplasty * s/p 09/29/16 angiogram and iliac artery angioplasty and stent placement * s/p 10/04/16 [employer] BR[employer] to graft now patent -> started on Plavix 6. End-stage renal disease, hemodialysis dependent * Left upper extremity AV fistula 7. DM w/complications of DM polyneuropathies: Nephro, Peripheral, Autonomic 8. CAD, w/Hx cardiomyopathy, hx of CABG, hx of non-ST elevation myocardial infarction type 2 9. Anemia of chronic disease, Epogen (+)MRSA Nares-> Bactroban CURRENT ABX: => Levaquin +Vanco IV post HD +Zosyn #2 TOTAL ABX DAY #16 Start-date 09/27 ID RECOMMENDATIONS 1. Zosyn added last night post cardiac arrest for concern ASP RLL PNA 2. Continue current ABX . . Problems: Consultation Date/Type/Reason Admit Date/Time Sep 26, 2016 at 16:53 Type of Consultation: ID Referring Provider: BRANDI ERICKSON DO Exam/Review of Systems Vital Signs Vitals Vital Signs Date Time Temp Pulse Resp B/P Pulse Ox O2 Delivery O2 Flow Rate FiO2 10/12/16 18:15 70 28 117/54 100 10/12/16 16:05 100 10/12/16 16:00 97.5 10/12/16 05:00 Mechanical Ventilator 10/10/16 17:02 2.0 Intake and Output 10/11/16 10/11/16 10/12/16 15:00 23:00 07:00 Intake Total 500 ml 946.875 ml 1497.27 ml Output Total 500 ml 800 ml Balance 0 ml 146.875 ml 1497.27 ml Results Result Diagram: 10/12/16190810/12/161908 Results 24 hrs Laboratory Tests Test 10/11/16 21:39 10/11/16 22:00 10/11/16 22:15 10/11/16 23:44 Sodium Level 140 Potassium Level 3.5 Chloride Level 94 L Carbon Dioxide Level 14 #L Anion Gap 36 #H Blood Urea Nitrogen 19 Creatinine 2.44 H Glucose Level 102 # Lactic Acid Level 18.2 *H Calcium Level 10.7 #H Phosphorus Level 6.7 #H Magnesium Level 2.2 Creatine Kinase 102 Creatine Kinase Index 9.8 Creatinine Kinase MB (Mass) 9.99 H Troponin I 0.142 *H Blood Gas Specimen Source Blood arterial Arterial Blood Date Drawn 10/11/2016 10:30:55 PM Arterial Blood pH (Temp corrected) 7.200 *L Arterial Blood pCO2 (Temp correct) 33.4 L Arterial Blood pO2 (Temp corrected) 199.3 H Arterial Blood HCO3 12.8 L Arterial Blood Base Excess -14.1 L Arterial Blood Oxygen Saturation 98.3 Enmanuel Test ACCEPTAB Arterial Blood Gas Puncture Site Right Radial Arterial Blood Carboxyhemoglobin 0.2 Arterial Blood Methemoglobin 0.4 Blood Gas A-a O2 Differential 480.3 H Oxyhemoglobin Percent 97.7 Total Hemoglobin 7.1 L Blood Gas Temperature 37.0 Blood Gas Respiration Rate 14.0 Blood Gas Actual Respiration Rate 20 Blood Gas Modality VENT - AC FiO2 100.0 Blood Gas Tidal Volume 400.0 Blood Gas Low PEEP Setting 5.0 Blood Gas Critical Value Read Back MLEB RN Blood Gas Notified Whom MA Blood Gas Notified Time 10/11/2016 10:40:40 PM White Blood Count 20.2 #H Red Blood Count 2.16 #L Hemoglobin 6.6 #*L Hematocrit 21.8 #L Mean Corpuscular Volume 100.9 Mean Corpuscular Hemoglobin 30.6 Mean Corpuscular Hemoglobin Concent 30.3 L Red Cell Distribution Width 21.0 H Platelet Count 77 #L Mean Platelet Volume 10.8 H Neutrophils % 84.4 H Lymphocytes % 7.4 L Monocytes % 5.4 Eosinophils % 0.0 Basophils % 0.1 Nucleated Red Blood Cells % 0.9 H Neutrophils # 17.0 H Lymphocytes # 1.5 Monocytes # 1.1 H Eosinophils # 0.0 Basophils # 0.0 Nucleated Red Blood Cells # 0.2 H Activated Partial Thromboplast Time 67.1 H Bedside Glucose 96 Test 10/12/16 05:00 10/12/16 06:30 10/12/16 08:21 10/12/16 12:40 Blood Gas Specimen Source Blood arterial Arterial Blood Date Drawn 10/12/2016 5:30:27 AM Arterial Blood pH (Temp corrected) 7.073 *L Arterial Blood pCO2 (Temp correct) 30.0 L Arterial Blood pO2 (Temp corrected) 106.7 H Arterial Blood HCO3 8.6 *L Arterial Blood Base Excess -20.2 L Arterial Blood Oxygen Saturation 95.0 Enmanuel Test ACCEPTAB Arterial Blood Gas Puncture Site Right Radial Arterial Blood Carboxyhemoglobin 0.3 Arterial Blood Methemoglobin 0.2 Blood Gas A-a O2 Differential 576.3 H Oxyhemoglobin Percent 94.5 Total Hemoglobin 10.2 L Blood Gas Temperature 37.0 Blood Gas Respiration Rate 14.0 Blood Gas Actual Respiration Rate 25 Blood Gas Modality VENT - AC FiO2 100.0 Blood Gas Tidal Volume 400.0 Blood Gas Low PEEP Setting 5.0 Blood Gas Inspiratory Pressure 24.0 Blood Gas Critical Value Read Back Diallo HARDY RN Blood Gas Notified Whom MG Blood Gas Notified Time 10/12/2016 5:41:55 AM White Blood Count 27.4 #H Red Blood Count 2.96 #L Hemoglobin 9.1 #L Hematocrit 28.4 #L Mean Corpuscular Volume 95.9 Mean Corpuscular Hemoglobin 30.7 Mean Corpuscular Hemoglobin Concent 32.0 Red Cell Distribution Width 19.1 H Platelet Count 70 L Mean Platelet Volume 10.6 H Neutrophils % 90.5 H Lymphocytes % 3.7 L Monocytes % 3.8 Eosinophils % 0.0 Basophils % 0.1 Nucleated Red Blood Cells % 2.9 H Neutrophils # 24.7 H Lymphocytes # 1.0 Monocytes # 1.1 H Eosinophils # 0.0 Basophils # 0.0 Nucleated Red Blood Cells # 0.8 H Prothrombin Time 33.0 #H Prothrombin Time Ratio 2.6 INR International Normalized Ratio 3.17 Sodium Level 143 Potassium Level 4.5 Chloride Level 96 L Carbon Dioxide Level 15 L Anion Gap 37 H Blood Urea Nitrogen 19 Creatinine 2.76 H Glucose Level 116 Lactic Acid Level 19.4 *H Calcium Level 7.4 L Phosphorus Level 6.5 H Magnesium Level 2.0 Bedside Glucose 132 188 Test 10/12/16 13:45 10/12/16 18:37 10/12/16 19:09 Hemoglobin 8.4 L 10.6 #L Hematocrit 27.1 L 32.7 #L Bedside Glucose 230 H White Blood Count 30.5 H Red Blood Count 3.50 L Mean Corpuscular Volume 93.4 Mean Corpuscular Hemoglobin 30.3 Mean Corpuscular Hemoglobin Concent 32.4 Red Cell Distribution Width 19.6 H Platelet Count 72 L Mean Platelet Volume 12.5 H Neutrophils % 88.1 H Lymphocytes % 4.8 L Monocytes % 4.4 Eosinophils % 0.0 Basophils % 0.3 Nucleated Red Blood Cells % 7.5 H Neutrophils # 26.9 H Lymphocytes # 1.5 Monocytes # 1.3 H Eosinophils # 0.0 Basophils # 0.1 Nucleated Red Blood Cells # 2.3 H Prothrombin Time 30.8 H Prothrombin Time Ratio 2.4 INR International Normalized Ratio 2.91 Activated Partial Thromboplast Time 47.1 H Sodium Level 138 Potassium Level 4.5 Chloride Level 88 L Carbon Dioxide Level 14 L Anion Gap 41 H Blood Urea Nitrogen 20 Creatinine 2.87 H Glucose Level 314 #H Lactic Acid Level 21.1 *H Calcium Level 7.0 L Total Bilirubin 1.7 H Direct Bilirubin 1.00 H Indirect Bilirubin 0.7 Aspartate Amino Transf (AST/SGOT) 661 H Alanine Aminotransferase (ALT/SGPT) 170 H Alkaline Phosphatase 88 Total Protein 4.9 L Albumin 2.8 L Globulin 2.10 Albumin/Globulin Ratio 1.33 Medications Medications Current Medications Ferrous Sulfate (Ferrous Sulfate (Ec)) 325 mg DAILY PO Last administered on 10/12 09:06; Admin Dose 325 MG; Start 09/27/16 at 09:00 Hydralazine HCl (Apresoline) 10 mg BID PO Last administered on 10/07/16 21:46 ; Admin Dose 10 MG; Start 09/27/16 at 09:00 Metoprolol Succinate (Toprol Xl) 25 mg DAILY PO Last administered on 10/08/16 09:20; Admin Dose 25 MG; Start 09/27/16 at 09:00 Multivit/Ca Carb/ B Cmplx/FA/Prenat (Billie-Roge) 1 tab DAILY PO Last administered on 10/12/16 09:06; Admin Dose 1 TAB; Start 09/27/16 at 09:00 Polyethylene Glycol (Miralax) 17 gm DAILY PO Last administered on 10/12/16 09: 06; Admin Dose 17 GM; Start 09/27/16 at 09:00 Pantoprazole (Protonix Tab) 40 mg DAILY@06 PO Last administered on 10/12/16 06: 36; Admin Dose 40 MG; Start 09/27/16 at 06:00 Zolpidem Tartrate (Ambien) 5 mg HS PRN PO INSOMNIA; Start 09/27/16 at 01:00 Acetaminophen (Tylenol Tab) 650 mg Q6H PRN PO PAIN AND OR ELEVATED TEMP Last administered on 10/11/16 12:45; Admin Dose 650 MG; Start 09/27/16 at 01:00 Ondansetron HCl (Zofran Inj) 4 mg Q6H PRN IV NAUSEA AND/OR VOMITING Last administered on 10/11/16 14:36; Admin Dose 4 MG; Start 09/27/16 at 01:00 IV Flush (NS 10 ml) 3 ml Q8 IV Last administered on 10/12/16 14:27; Admin Dose 3 ML; Start 09/27/16 at 06:00 Diagnostic Test (Pha) (Accu-Chek) 1 ea 02 XX Last administered on 10/02/16 02: 12; Admin Dose 1 EA; Start 09/28/16 at 02:00 Miscellaneous Information 1 ea NOTE XX ; Start 09/27/16 at 07:30 Glucose (Glutose) 15 gm Q15M PRN PO DECREASED GLUCOSE; Start 09/27/16 at 07:30 Glucose (Glutose) 22.5 gm Q15M PRN PO DECREASED GLUCOSE; Start 09/27/16 at 07: 30 Dextrose (D50w Syringe) 25 ml Q15M PRN IV DECREASED GLUCOSE; Start 09/27/16 at 07:30 Dextrose (D50w Syringe) 50 ml Q15M PRN IV DECREASED GLUCOSE; Start 09/27/16 at 07:30 Glucagon (Glucagen) 1 mg Q15M PRN IM DECREASED GLUCOSE; Start 09/27/16 at 07:30 Glucose (Glutose) 15 gm Q15M PRN BUCCAL DECREASED GLUCOSE; Start 09/27/16 at 07 :30 Acetaminophen/ Hydrocodone Bitart ([place] (10/325)) 1.5 tab Q8H PO Last administered on 10/11/16 06:46; Admin Dose 1.5 TAB; Start 09/27/16 at 15:30 Clonidine (Catapres) 0.1 mg Q6H PRN PO SBP>170; Start 09/27/16 at 12:00 Mupirocin (Bactroban) 1 applic BID TOP Last administered on 10/12/16 09:07; Admin Dose 1 APPLIC; Start 09/28/16 at 21:00 Atorvastatin Calcium (Lipitor) 40 mg DAILY@21 PO Last administered on 10/10/16 20:58; Admin Dose 40 MG; Start 09/29/16 at 21:00 Levofloxacin (Levaquin) 250 mg Q48H PO Last administered on 10/12/16 14:26; Admin Dose 250 MG; Start 09/30/16 at 15:00 Aspirin (Aspirin) 81 mg DAILY PO Last administered on 10/11/16 09:20; Admin Dose 81 MG; Start 10/05/16 at 09:00; Status Future Hold Clopidogrel Bisulfate 75 mg 75 mg DAILY PO Last administered on 10/11/16 09:19 ; Admin Dose 75 MG; Start 10/05/16 at 09:00; Status Future Hold Vancomycin HCl (Vancocin) 250 ml @ 125 mls/hr Q96H IVPB Last administered on 17:48; Admin Dose 125 MLS/HR; Start 10/05/16 at 18:00 Morphine Sulfate 2 mg 2 mg Q2H PRN IV PAIN Last administered on 10/10/16 16:33 ; Admin Dose 2 MG; Start 10/09/16 at 14:30 Piperacillin Sod/ Tazobactam Sod 50 ml @ 100 mls/hr Q8 IVPB Last administered on 10/12/16 13:11; Admin Dose 100 MLS/HR; Start 10/11/16 at 22:00 Vasopressin 60 unit/Dextrose 60 ml @ 1.2 mls/hr Q12H IV Last administered on 15:45; Admin Dose 2.4 MLS/HR; Start 10/12/16 at 03:00 Sodium Bicarbonate 150 meq/Dextrose 1,000 ml @ 150 mls/hr Q6H40M IV Last administered on 10/12/16 14:15; Admin Dose 150 MLS/HR; Start 10/12/16 at 07:00 Norepinephrine 32 mg/Dextrose 250 ml @ 0.46 mls/hr TITRATE IV Last administered on 10/12/16 16:28; Admin Dose 14.06 MLS/HR; Start 10/12/16 at 07:00 Phenylephrine HCl/ Dextrose (Fabrizio-Syneph/D5W) 250 ml @ 18.75 mls/ hr TITRATE IV Last administered on 10/12/16 12:59; Admin Dose 56.25 MLS/HR; Start 10/12/16 at 07:00 Miscellaneous Information 1 ONCE ONCE XX ; Start 10/13/16 at 17:00; Stop at 17:01 Dopamine HCl/ Dextrose 250 ml @ 3.63 mls/hr TITRATE IV Last administered on 13:29; Admin Dose 9.075 MLS/HR; Start 10/12/16 at 13:30 QUINN SINGH NP Oct 12, 2016 20:30
[2016-10-12 22:26] LABS: AADO2 Arterial 564.1 mmHg (7.0-24.0); Allen Test ACCEPTAB; Arterial Base Excess -13.9 mmol/L (-3.0-3); Arterial COHb 0.2 % (0.0-3.0); Arterial Fraction of Oxyhgb 97.1 % (93.0-99.0); Arterial HCO3 11.4 mmol/L (22.0-26.0); Arterial MetHb 0.3 % (0.0-1.5); Arterial Total Hemglobin 13.2 g/dl (12.0-18.0); MODE VENT - AC
[2016-10-12 22:57] LABS: PLATELET COUNT 57 10^3/UL (140-415)
--- NOTE | 2016-10-12 23:07 | CONS ---
Date/Time of Note Date/Time of Note DATE: 10/12/16 TIME: 23:06 Assessment/Plan Assessment/Plan Chief Complaint/Hosp Course DIC in septic pt MONITOR ALL HEMATOLOGICAL PARAMETERS AGGRESSIVE BLOOD PRODUCTS SUPPORT ATB PER ID Anemia WITH DROP H/H POST PRBC complex multifactorial cont to monitor blood count closely observe for bleeding and hemolysis transfuse as needed THROMBOCYTOPENIA WORSENED WITH DIC MONITOR CLOSELY POST PLATELET TRANSFUSION s/p Cardiac arrest , CODE Blue 8/2 s/p PRBCs + pressors Aspiration PNA during cardiac arrest/CPR 10/12/16 CXR There is a right lower lobe pneumonia. Sepsis on pressors w/(+)SIRS === no fevers, (+)leukocytosis s/p staph bacteremia==> Staph "CoNS" 1/2 bottles, possibly a contaminated sample Cardiomyopathy with low EF HTN HL cad SEVERE Pad s/p peripheral bypass Atherectomy left anterior tibial artery Atherectomy left popliteal artery Atherectomy left superficial femoral artery Angioplasty left anterior tibial artery to by 200 mm balloon and 3 x 200 mm balloon Angioplasty left popliteal artery and superficial femoral artery 6 x 200 mm balloon Left lower extremity third order to angiogram Interpositions version of the atherectomy and angioplasty ESRD on HD Non-healing LE wound s/p R ext illiac sttenting and now s/p MEDICAL BILLING AND CODING SPECIALIST to graft now patent PPM Hyponatremia Hypothyroid Problems: Consultation Date/Type/Reason Admit Date/Time Sep 26, 2016 at 16:53 Type of Consultation: [facility] Referring Provider: BRANDI ERICKSON DO 24 HR Interval Summary Free Text/Dictation all noted s/p Cardiac arrest , CODE Blue 8/2 s/p PRBCs + pressors Aspiration PNA during cardiac arrest/CPR 10/12/16 CXR There is a right lower lobe pneumonia. Sepsis on pressors w/(+)SIRS === no fevers, (+)leukocytosis s/p staph bacteremia==> Staph "CoNS" 1/2 bottles, possibly a contaminated sample Exam/Review of Systems Vital Signs Vitals Vital Signs Date Time Temp Pulse Resp B/P Pulse Ox O2 Delivery O2 Flow Rate FiO2 10/12/16 22:35 71 29 100 90 10/12/16 21:00 118/56 Mechanical Ventilator 10/12/16 19:00 98.3 10/10/16 17:02 2.0 Intake and Output 8/210/11/16 10/12/16 15:00 23:00 07:00 Intake Total 500 ml 946.875 ml 1497.27 ml Output Total 500 ml 800 ml Balance 0 ml 146.875 ml 1497.27 ml Exam ENMT: mucosa pink and moist, nl external ears & nose, nl lips & teeth, nl nasal mucosa & septum Neck: non-tender, supple Respiratory: clear to auscultation, normal air movement Cardiovascular: nl pulses, regular rate and rhythm Drains Both feet are dusky Palpable femoral but no pedal pulses Results Result Diagram: 10/12/160 10/12/16 1909 Results 24 hrs Laboratory Tests Test 10/11/16 23:44 10/12/16 05:00 10/12/16 06:30 10/12/16 08:21 Bedside Glucose 96 132 Blood Gas Specimen Source Blood arterial Arterial Blood Date Drawn 10/12/2016 5:30:27 AM Arterial Blood pH (Temp corrected) 7.073 *L Arterial Blood pCO2 (Temp correct) 30.0 L Arterial Blood pO2 (Temp corrected) 106.7 H Arterial Blood HCO3 8.6 *L Arterial Blood Base Excess -20.2 L Arterial Blood Oxygen Saturation 95.0 Enmanuel Test ACCEPTAB Arterial Blood Gas Puncture Site Right Radial Arterial Blood Carboxyhemoglobin 0.3 Arterial Blood Methemoglobin 0.2 Blood Gas A-a O2 Differential 576.3 H Oxyhemoglobin Percent 94.5 Total Hemoglobin 10.2 L Blood Gas Temperature 37.0 Blood Gas Respiration Rate 14.0 Blood Gas Actual Respiration Rate 25 Blood Gas Modality VENT - AC FiO2 100.0 Blood Gas Tidal Volume 400.0 Blood Gas Low PEEP Setting 5.0 Blood Gas Inspiratory Pressure 24.0 Blood Gas Critical Value Read Back Diallo HARDY RN Blood Gas Notified Whom MG Blood Gas Notified Time 10/12/2016 5:41:55 AM White Blood Count 27.4 #H Red Blood Count 2.96 #L Hemoglobin 9.1 #L Hematocrit 28.4 #L Mean Corpuscular Volume 95.9 Mean Corpuscular Hemoglobin 30.7 Mean Corpuscular Hemoglobin Concent 32.0 Red Cell Distribution Width 19.1 H Platelet Count 70 L Mean Platelet Volume 10.6 H Neutrophils % 90.5 H Lymphocytes % 3.7 L Monocytes % 3.8 Eosinophils % 0.0 Basophils % 0.1 Nucleated Red Blood Cells % 2.9 H Neutrophils # 24.7 H Lymphocytes # 1.0 Monocytes # 1.1 H Eosinophils # 0.0 Basophils # 0.0 Nucleated Red Blood Cells # 0.8 H Prothrombin Time 33.0 #H Prothrombin Time Ratio 2.6 INR International Normalized Ratio 3.17 Sodium Level 143 Potassium Level 4.5 Chloride Level 96 L Carbon Dioxide Level 15 L Anion Gap 37 H Blood Urea Nitrogen 19 Creatinine 2.76 H Glucose Level 116 Lactic Acid Level 19.4 *H Calcium Level 7.4 L Phosphorus Level 6.5 H Magnesium Level 2.0 Test 10/12/16 12:40 10/12/16 13:45 10/12/16 18:37 10/12/16 19:09 Bedside Glucose 188 230 H Hemoglobin 8.4 L 10.6 #L Hematocrit 27.1 L 32.7 #L White Blood Count 30.5 H Red Blood Count 3.50 L Mean Corpuscular Volume 93.4 Mean Corpuscular Hemoglobin 30.3 Mean Corpuscular Hemoglobin Concent 32.4 Red Cell Distribution Width 19.6 H Platelet Count 72 L Mean Platelet Volume 12.5 H Neutrophils % 88.1 H Lymphocytes % 4.8 L Monocytes % 4.4 Eosinophils % 0.0 Basophils % 0.3 Nucleated Red Blood Cells % 7.5 H Neutrophils # 26.9 H Lymphocytes # 1.5 Monocytes # 1.3 H Eosinophils # 0.0 Basophils # 0.1 Nucleated Red Blood Cells # 2.3 H Prothrombin Time 30.8 H Prothrombin Time Ratio 2.4 INR International Normalized Ratio 2.91 Activated Partial Thromboplast Time 47.1 H Sodium Level 138 Potassium Level 4.5 Chloride Level 88 L Carbon Dioxide Level 14 L Anion Gap 41 H Blood Urea Nitrogen 20 Creatinine 2.87 H Glucose Level 314 #H Lactic Acid Level 21.1 *H Calcium Level 7.0 L Total Bilirubin 1.7 H Direct Bilirubin 1.00 H Indirect Bilirubin 0.7 Aspartate Amino Transf (AST/SGOT) 661 H Alanine Aminotransferase (ALT/SGPT) 170 H Alkaline Phosphatase 88 Total Protein 4.9 L Albumin 2.8 L Globulin 2.10 Albumin/Globulin Ratio 1.33 Test 10/12/16 20:24 10/12/16 21:11 10/12/16 22:50 Bedside Glucose 231 H Blood Gas Specimen Source Blood arterial Arterial Blood Date Drawn 10/12/2016 10:14:36 PM Arterial Blood pH (Temp corrected) 7.264 *L Arterial Blood pCO2 (Temp correct) 25.7 L Arterial Blood pO2 (Temp corrected) 123.2 H Arterial Blood HCO3 11.4 L Arterial Blood Base Excess -13.9 L Arterial Blood Oxygen Saturation 97.6 Enmanuel Test ACCEPTAB Arterial Blood Gas Puncture Site Right Radial Arterial Blood Carboxyhemoglobin 0.2 Arterial Blood Methemoglobin 0.3 Blood Gas A-a O2 Differential 564.1 H Oxyhemoglobin Percent 97.1 Total Hemoglobin 13.2 Blood Gas Temperature 37.0 Blood Gas Respiration Rate 14.0 Blood Gas Actual Respiration Rate 28 Blood Gas Modality VENT - AC FiO2 100.0 Blood Gas Tidal Volume 400.0 Blood Gas Low PEEP Setting 5.0 Blood Gas Inspiratory Pressure 21.0 Blood Gas Critical Value Read Back Nelson ALANIS RN Blood Gas Notified Whom Sebastian [employer] COUNTER ATTENDANT Blood Gas Notified Time 10/12/2016 10:25:52 PM Platelet Count 57 L Prothrombin Time Pending Prothrombin Time Ratio Pending INR International Normalized Ratio Pending Activated Partial Thromboplast Time Pending Thrombin Time Pending Fibrinogen Pending Plasma Fibrin Degradation Products Pending D-Dimer Pending Medications Medications Current Medications Ferrous Sulfate (Ferrous Sulfate (Ec)) 325 mg DAILY PO Last administered on 10/12 09:06; Admin Dose 325 MG; Start 09/27/16 at 09:00 Hydralazine HCl (Apresoline) 10 mg BID PO Last administered on 10/07/16 21:46 ; Admin Dose 10 MG; Start 09/27/16 at 09:00 Metoprolol Succinate (Toprol Xl) 25 mg DAILY PO Last administered on 10/08/16 09:20; Admin Dose 25 MG; Start 09/27/16 at 09:00 Multivit/Ca Carb/ B Cmplx/FA/Prenat (Billie-Roge) 1 tab DAILY PO Last administered on 10/12/16 09:06; Admin Dose 1 TAB; Start 09/27/16 at 09:00 Polyethylene Glycol (Miralax) 17 gm DAILY PO Last administered on 10/12/16 09: 06; Admin Dose 17 GM; Start 09/27/16 at 09:00 Pantoprazole (Protonix Tab) 40 mg DAILY@06 PO Last administered on 10/12/16 06: 36; Admin Dose 40 MG; Start 09/27/16 at 06:00 Zolpidem Tartrate (Ambien) 5 mg HS PRN PO INSOMNIA; Start 09/27/16 at 01:00 Acetaminophen (Tylenol Tab) 650 mg Q6H PRN PO PAIN AND OR ELEVATED TEMP Last administered on 10/11/16 12:45; Admin Dose 650 MG; Start 09/27/16 at 01:00 Ondansetron HCl (Zofran Inj) 4 mg Q6H PRN IV NAUSEA AND/OR VOMITING Last administered on 10/11/16 14:36; Admin Dose 4 MG; Start 09/27/16 at 01:00 IV Flush (NS 10 ml) 3 ml Q8 IV Last administered on 10/12/16 22:04; Admin Dose 3 ML; Start 09/27/16 at 06:00 Diagnostic Test (Pha) (Accu-Chek) 1 ea 02 XX Last administered on 10/02/16 02: 12; Admin Dose 1 EA; Start 09/28/16 at 02:00 Miscellaneous Information 1 ea NOTE XX ; Start 09/27/16 at 07:30 Glucose (Glutose) 15 gm Q15M PRN PO DECREASED GLUCOSE; Start 09/27/16 at 07:30 Glucose (Glutose) 22.5 gm Q15M PRN PO DECREASED GLUCOSE; Start 09/27/16 at 07: 30 Dextrose (D50w Syringe) 25 ml Q15M PRN IV DECREASED GLUCOSE; Start 09/27/16 at 07:30 Dextrose (D50w Syringe) 50 ml Q15M PRN IV DECREASED GLUCOSE; Start 09/27/16 at 07:30 Glucagon (Glucagen) 1 mg Q15M PRN IM DECREASED GLUCOSE; Start 09/27/16 at 07:30 Glucose (Glutose) 15 gm Q15M PRN BUCCAL DECREASED GLUCOSE; Start 09/27/16 at 07 :30 Acetaminophen/ Hydrocodone Bitart ([place] (10325)) 1.5 tab Q8H PO Last administered on 10/11/16 06:46; Admin Dose 1.5 TAB; Start 09/27/16 at 15:30 Clonidine (Catapres) 0.1 mg Q6H PRN PO SBP>170; Start 09/27/16 at 12:00 Mupirocin (Bactroban) 1 applic BID TOP Last administered on 10/12/16 20:27; Admin Dose 1 APPLIC; Start 09/28/16 at 21:00 Atorvastatin Calcium (Lipitor) 40 mg DAILY@21 PO Last administered on 10/10/16 20:58; Admin Dose 40 MG; Start 09/29/16 at 21:00 Levofloxacin (Levaquin) 250 mg Q48H PO Last administered on 10/12/16 14:26; Admin Dose 250 MG; Start 09/30/16 at 15:00 Aspirin (Aspirin) 81 mg DAILY PO Last administered on 10/11/16 09:20; Admin Dose 81 MG; Start 10/05/16 at 09:00; Status Future Hold Clopidogrel Bisulfate 75 mg 75 mg DAILY PO Last administered on 10/11/16 09:19 ; Admin Dose 75 MG; Start 10/05/16 at 09:00; Status Future Hold Vancomycin HCl (Vancocin) 250 ml @ 125 mls/hr Q96H IVPB Last administered on 17:48; Admin Dose 125 MLS/HR; Start 10/05/16 at 18:00 Morphine Sulfate 2 mg 2 mg Q2H PRN IV PAIN Last administered on 10/10/16 16:33 ; Admin Dose 2 MG; Start 10/09/16 at 14:30 Piperacillin Sod/ Tazobactam Sod 50 ml @ 100 mls/hr Q8 IVPB Last administered on 10/12/16 22:05; Admin Dose 100 MLS/HR; Start 10/11/16 at 22:00 Vasopressin 60 unit/Dextrose 60 ml @ 1.2 mls/hr Q12H IV Last administered on 15:45; Admin Dose 2.4 MLS/HR; Start 10/12/16 at 03:00 Sodium Bicarbonate 150 meq/Dextrose 1,000 ml @ 150 mls/hr Q6H40M IV Last administered on 10/12/16 22:12; Admin Dose 150 MLS/HR; Start 10/12/16 at 07:00 Norepinephrine 32 mg/Dextrose 250 ml @ 0.46 mls/hr TITRATE IV Last administered on 10/12/16 16:28; Admin Dose 14.06 MLS/HR; Start 10/12/16 at 07:00 Phenylephrine HCl/ Dextrose (Fabrizio-Syneph/D5W) 250 ml @ 18.75 mls/ hr TITRATE IV Last administered on 10/12/16 22:17; Admin Dose 9.37 MLS/HR; Start 10/12/16 at 07:00 Miscellaneous Information 1 ONCE ONCE XX ; Start 10/13/16 at 17:00; Stop at 17:01 Dopamine HCl/ Dextrose 250 ml @ 3.63 mls/hr TITRATE IV Last administered on 13:29; Admin Dose 9.075 MLS/HR; Start 10/12/16 at 13:30 FABY HORN MD Oct 12, 2016 23:07
[2016-10-12 23:16] LABS: PROTIME 30.7 Sec (12.2-14.2); PT RATIO 2.4
[2016-10-12 23:50] LABS: FIBRIN SPLIT PRODUCT >10 and <40 ug/ml (<10)
[2016-10-12 23:51] LABS: D-DIMER > 10000.00 ng/ml (<460)
[2016-10-13] VITALS (82 sets, daily range): BP systolic 60–130; BP diastolic 41–82; PULSE 0–107; RESP 0–67
[2016-10-13] MEDS ORDERED: SOD CHLORIDE 0.9% 1,000 ML IV ONE
[2016-10-13] MEDS: DOPamine-D5W 1.6 MG/ML 250 ML IV SCH ×3 (00:46→13:00)
[2016-10-13] MEDS: ACCU-CHEK XX SCH (02:00)
[2016-10-13] MEDS: PIPER-TAZO 2.25 GM (PMX) 50 ML IVPB SCH (05:13)
[2016-10-13] MEDS: NORepinephrine 32 MG in DEXTROSE 5% 218 ML IV SCH (05:22)
[2016-10-13] MEDS: PANTOPRAZOLE (EC) 40 MG TAB PO SCH (05:30)
[2016-10-13 05:51] LABS: ABNORMAL IP MESSAGE 1; HEMATOCRIT 33.5 % (37.0-47.0); HEMOGLOBIN 10.6 g/dl (12.0-16.0); MEAN CORPUSCULAR HGB CONC 31.6 g/dl (32.0-37.0); MEAN CORPUSCULAR VOLUME 91.8 fl (82.0-101.0); MEAN PLATELET VOLUME 11.9 fl (7.4-10.4); NUCLEATED RED BLOOD CELLS% 14.8 /100WBC (0.0-0.0); PLATELET COUNT 84 10^3/UL (140-415); RED BLOOD COUNT 3.65 10^6/ul (4.20-5.40); RED CELL DISTRIBUTION WIDTH 20.5 % (11.5-14.5)
[2016-10-13 05:54] LABS: INR 2.36; PROTIME 26.1 Sec (12.2-14.2)
[2016-10-13 05:55] LABS: PARTIAL THROMBOPLASTIN TIME 48.8 Sec (25.0-35.0)
[2016-10-13 05:58] LABS: CALCIUM 6.8 mg/dl (8.4-10.2); CREATININE 2.98 mg/dl (0.44-1.00); MAGNESIUM 1.9 mg/dl (1.7-2.5); PHOSPHORUS 6.7 mg/dl (2.5-4.9); POTASSIUM 4.6 mmol/L (3.5-5.1)
[2016-10-13] MEDS: SODIUM BICARBONATE (IV ADD) 150 MEQ in DEXTROSE 5% 850 ML IV SCH (06:04)
[2016-10-13 06:11] LABS: POSITIVE DIFF @See below
[2016-10-13] MEDS: HYDROCODONE/APAP (10/325) TAB PO SCH (06:11)
[2016-10-13] MEDS: LEVOTHYROXINE 88 MCG TAB PO SCH (06:11)
[2016-10-13 07:21] LABS: AADO2 Arterial 482.5 mmHg (7.0-24.0); Arterial Base Excess -13.9 mmol/L (-3.0-3); Arterial COHb 0.3 % (0.0-3.0); Arterial Fraction of Oxyhgb 95.9 % (93.0-99.0); Arterial HCO3 10.9 mmol/L (22.0-26.0); Arterial MetHb 0.2 % (0.0-1.5); Arterial Total Hemglobin 12.5 g/dl (12.0-18.0); MODE VENT - AC
[2016-10-13 07:34] LABS: ANISOCYTOSIS 2+ (0-0); BURR CELLS 3+ (0-0); ERYTHROBLAST% (NRBC) (M) 22 % (0-0); GIANT THROMBO% (M) 2 % (0-0); MICROCYTOSIS 1+ (0-0); MONOCYTES % (M) 1 % (0-11); PLATELET ESTIMATE DECREASED; POIKILOCYTOSIS 3+ (0-0); POLYCHROMASIA 1+ (0-0)
[2016-10-13] MEDS: SEVELAMER 800 MG TAB PO SCH ×2 (07:35→09:34)
[2016-10-13] MEDS: INSULIN ASPART [NOVOLOG] 3 ML PEN SC SCH ×2 (08:00→13:07)
[2016-10-13] MEDS ORDERED: EPINEPHrine 100 MCG/10 ML SYG IV ONE (08:00)
[2016-10-13] MEDS ORDERED: CA CHLORIDE 10% 10 ML SYRINGE ONE (08:00)
[2016-10-13] MEDS ORDERED: NA BICARBONATE 8.4% 50 ML SYG ONE (08:00)
--- NOTE | 2016-10-13 08:14 | PN ---
DATE: 10/13/2016 SUBJECTIVE DATA: The patient remains critically ill, on multiple pressors and full ventilatory support. The patient is in no apparent DIC given her DIC panel and her ongoing coagulopathy. Overnight, the patient received multiple blood products, 4 units of PRBC, 4 units of FFP, and vitamin K. There is no obvious bleeding at this time. Case was discussed in detail with Dr. Bianchi and patient's daughter bedside as well as the Rental Agent. OBJECTIVE DATA: VITAL SIGNS: Blood pressure is 96/48, respirations 30, pulse 70, temperature 98.7. HEENT: Head is normocephalic. Pupils are reactive to light. NECK: Supple. HEART: Regular rate. LUNGS: Show diminished breath sounds at the base. ABDOMEN: Soft, nontender to palpation. No rebound or guarding. EXTREMITIES: Negative for clubbing, cyanosis. Positive edema, upper and lower extremities . DERMATOLOGIC: Clean. No rashes. MUSCULOSKELETAL: No joint effusion. NEUROLOGICAL: Limited exam. LABORATORY AND DIAGNOSTIC DATA: INR 2.36, a fibrinogen of 206, a D-dimer of greater than 10,000. Sodium 138, potassium 4.6, chloride 85, BUN is 21, creatinine 2.90, glucose 240, lactic acid 21, calcium 6.8, phosphorus 6.7. White count 25,000, hemoglobin 10.6, hematocrit 30.5, platelet count is 84. ABG shows a pH 7.264, PO2 of 25. IMAGING STUDIES: Chest x-ray shows right lower lobe pneumonia, pleural effusion, cardiomegaly. ASSESSMENT AND PLAN: 1. Septic shock. Etiology is likely secondary to pneumonia. Patient is on broad-spectrum antibiotics, is on 3 pressors. At this point, we will continue current treatment plan. Continue current medical management. Continue IV hydration. We will follow up with Infectious Disease and Rental Agent for further recommendation. 2. Disseminated intravascular coagulopathy. The patient has an elevated D-dimer, thrombocytopenia and low fibrinogen levels. The patient has received multiple blood products, FFPs, vitamin K. We will continue. Transport Tank Technician, Dr. Juarez, is following. We will continue to monitor and follow up with recommendations. 3. Anemia, in part due to underlying disseminated intravascular coagulopathy and possible bleed. The patient has received multiple blood transfusions. Hemoglobin levels will continue to be monitored . 4. Ventilatory-dependent respiratory failure. Vent settings reviewed. ABGs reviewed. We will monitor. Follow up with Pulmonary. 5. Severe anion gap metabolic acidemia secondary to lactic acidosis. The patient remains on bicarbonate drip. We will continue to treat underlying shock. Continue to monitor serial lactic acid levels. We will attempt dialysis if patient's hemodynamics improve. 6. Status post code arrest. Underlying cause is unclear, possible pneumonia, possible bleed. We will continue to monitor. Cardiology is following. 7. End-stage renal disease. We will attempt hemodialysis today if the patient's hemodynamics improve, clinically unstable at this time. 8. Peripheral vascular disease with right lower extremity gangrene. The patient is status post angiogram and stenting in the iliac artery. The patient is status post left lower extremity angiogram. Continue to monitor. 9. Coronary artery disease. Continue medical management. 10. Diabetes. Continue Accu-Cheks, insulin sliding scale. 11. Hypothyroidism. 12. Mineral bone disorder. Monitor calcium and phosphorus levels. 13. Acute encephalopathy, etiology is toxic metabolic. The patient is, however, able to follow simple commands. 14. Leukocytosis secondary to shock stress. Continue to monitor. 15. Thrombocytopenia likely due to underlying disseminated intravascular coagulopathy. The patient is status post platelet transfusion. We was ill continue to monitor. Follow up with Oncology. Please note, I spent over 35 minutes of critical care time with this patient. Discussed the case in detail with patient's daughter at bedside. All questions were answered. Dictated By: Ihsan Johns DO /meenakshi/carolina /Document#: [id number]
[2016-10-13] MEDS: METOPROLOL (XL) 25 MG TAB PO SCH (08:47)
--- NOTE | 2016-10-13 08:52 | RADRPT ---
PROCEDURE: Chest radiograph. CLINICAL INDICATION: Congestion. TECHNIQUE: Single portable frontal view. COMPARISON: Radiograph from 04/14/2016. FINDINGS: Dual-lumen right internal jugular central venous catheter terminates at the inferior cavoatrial junc tion. The endotracheal tube terminates about 1.8 cm above the renee. The enteric tube terminates in the gastric fundus. Interval placement of a left chest pacemaker with leads terminating in the right ventricle and right atrium. Moderate right pleural effusion, new compared to April 2016. The right lung apex and left lung are clear. Cardiomegaly. Median sternotomy with multivessel CABG. No suspicious bone lesion. IMPRESSION: 1. Moderate right pleural effusion. 2. Cardiomegaly. 3. All support devices in expected position. RPTAT: PP Physician Wai Date Time Electronically viewed and signed by Physician Wai on 10/13/2016 08:52 LG/
[2016-10-13] MEDS: FERROUS SULFATE (EC) 325 MG TAB PO SCH (09:33)
[2016-10-13] MEDS: MUPIROCIN 2% 22 GM OINT TOP SCH (09:34)
[2016-10-13] MEDS: POLYETHYLENE GLYCOL 17 GM PACKET PO SCH (09:34)
[2016-10-13] MEDS: MULTIVIT/CA CARB/B CMPLX/FA TAB PO SCH (09:34)
[2016-10-13] MEDS: ACETAMINOPHEN 325 MG TAB PO PRN (09:51)
[2016-10-13] MEDS ORDERED: PHYTONADIONE 10 MG/ML INJ SC ONE (10:00)
--- NOTE | 2016-10-13 10:50 | CONS ---
Date/Time of Note Date/Time of Note DATE: 10/13/16 TIME: 10:42 Assessment/Plan Assessment/Plan Chief Complaint/Hosp Course IMP: 1.Cardiomyopathy with low EF 2.Hypotension/shock-still on multiple pressors 3.HL 4.cad 5. Pad s/p peripheral bypass 6. ESRD on HD 7. Non-healing LE wound s/p R ext illiac stenting and COAT ROOM ATTENDANT to graft and now athrectomy and COAT ROOM ATTENDANT to L SFA/popliteal/AT 8. PPM 9. Anemia-worsening ? from bleeding at AVF site 10.REsp failure now s/p intubation 11.Cardiopulmonary arrest s/p ACLS with return of a perfusing rhythm 12. PNA by cxr 14. Positive troponin-minimal likely type 2 demand infarct 15. Acidosis-on Hco3 drip 16.DIC-likely at this time 17. PAF-with reasonable rate control at this time Recc: -Tele -serial ecg's -Continue pressor support with weaning as possible -Hold asa/plavix given anemia/low platelet/coagulopathy -Continue statin -HD for volume removal only as possible at this time given BP/need for pressor support -Continue abx's and f/u cx data -wean vent suppport as possible -trend cardiac enzymes -correct acidosis as you are doing -correct coagulopathy Problems: Consultation Date/Type/Reason Admit Date/Time Sep 26, 2016 at 16:53 Initial Consult Date 09/27/2016 Type of Consultation: cardiology Reason for Consultation shock Referring Provider: BRANDI ERICKSON DO Exam/Review of Systems Vital Signs Vitals Vital Signs Date Time Temp Pulse Resp B/P Pulse Ox O2 Delivery O2 Flow Rate FiO2 10/13/16 10:00 104 33 60/45 96 10/13/16 09:16 85 10/13/16 07:45 100.3 10/13/16 07:30 Mechanical Ventilator 10/10/16 17:02 2.0 Intake and Output 10/12/16 10/12/16 10/13/16 15:00 23:00 07:00 Intake Total 2731.165 ml 2496.055 ml 3084.62 ml Balance 2731.165 ml 2496.055 ml 3084.62 ml Exam Review of Systems: CONSTITUTIONAL: No fevers, chills. PULMONARY: intubated CARDIOVASCULAR: No obvious chest pain/palpitations GASTROINTESTINAL: No nausea/vomiting. GENITOURINARY: No hematuria/dysuria. MUSCULOSKELETAL: No obvious myagias/arthalgias. PSYCHIATRIC: No current depression. NEUROLOGIC: Sedated Constitutional: other (encephalopathic) Psych: no complaints Head: normocephalic ENMT: mucosa pink and moist Neck: jvd (9 cm water), supple Respiratory: diminished breath sounds (at bases/B) Cardiovascular: regular rate and rhythm Gastrointestinal: non-tender, soft Musculoskeletal: muscle weakness (generalized), other (feet covered by dressing bilateral with skin breakdown/gangrenious changes) Extremities: edema (none) Neurological: other (encephalopathy) Results Result Diagram: 10/13/16 0500 10/13/16 0500 Results 24 hrs Laboratory Tests Test 10/12/16 12:40 10/12/16 13:45 10/12/16 18:37 10/12/16 19:09 Bedside Glucose 188 230 H Hemoglobin 8.4 L 10.6 #L Hematocrit 27.1 L 32.7 #L White Blood Count 30.5 H Red Blood Count 3.50 L Mean Corpuscular Volume 93.4 Mean Corpuscular Hemoglobin 30.3 Mean Corpuscular Hemoglobin Concent 32.4 Red Cell Distribution Width 19.6 H Platelet Count 72 L Mean Platelet Volume 12.5 H Neutrophils % 88.1 H Lymphocytes % 4.8 L Monocytes % 4.4 Eosinophils % 0.0 Basophils % 0.3 Nucleated Red Blood Cells % 7.5 H Neutrophils # 26.9 H Lymphocytes # 1.5 Monocytes # 1.3 H Eosinophils # 0.0 Basophils # 0.1 Nucleated Red Blood Cells # 2.3 H Prothrombin Time 30.8 H Prothrombin Time Ratio 2.4 INR International Normalized Ratio 2.91 Activated Partial Thromboplast Time 47.1 H Sodium Level 138 Potassium Level 4.5 Chloride Level 88 L Carbon Dioxide Level 14 L Anion Gap 41 H Blood Urea Nitrogen 20 Creatinine 2.87 H Glucose Level 314 #H Lactic Acid Level 21.1 *H Calcium Level 7.0 L Total Bilirubin 1.7 H Direct Bilirubin 1.00 H Indirect Bilirubin 0.7 Aspartate Amino Transf (AST/SGOT) 661 H Alanine Aminotransferase (ALT/SGPT) 170 H Alkaline Phosphatase 88 Total Protein 4.9 L Albumin 2.8 L Globulin 2.10 Albumin/Globulin Ratio 1.33 Test 10/12/16 20:24 10/12/16 21:11 10/12/16 22:50 10/13/16 02:20 Bedside Glucose 231 H 240 H Blood Gas Specimen Source Blood arterial Arterial Blood Date Drawn 10/12/2016 10:14:36 PM Arterial Blood pH (Temp corrected) 7.264 *L Arterial Blood pCO2 (Temp correct) 25.7 L Arterial Blood pO2 (Temp corrected) 123.2 H Arterial Blood HCO3 11.4 L Arterial Blood Base Excess -13.9 L Arterial Blood Oxygen Saturation 97.6 Enmanuel Test ACCEPTAB Arterial Blood Gas Puncture Site Right Radial Arterial Blood Carboxyhemoglobin 0.2 Arterial Blood Methemoglobin 0.3 Blood Gas A-a O2 Differential 564.1 H Oxyhemoglobin Percent 97.1 Total Hemoglobin 13.2 Blood Gas Temperature 37.0 Blood Gas Respiration Rate 14.0 Blood Gas Actual Respiration Rate 28 Blood Gas Modality VENT - AC FiO2 100.0 Blood Gas Tidal Volume 400.0 Blood Gas Low PEEP Setting 5.0 Blood Gas Inspiratory Pressure 21.0 Blood Gas Critical Value Read Back Nelson ALANIS RN Blood Gas Notified Whom Sebastian ABDIP Blood Gas Notified Time 10/12/2016 10:25:52 PM Platelet Count 57 L Prothrombin Time 30.7 H Prothrombin Time Ratio 2.4 INR International Normalized Ratio 2.90 Activated Partial Thromboplast Time 50.0 H Thrombin Time 18.0 Fibrinogen 206.0 L Plasma Fibrin Degradation Products >10 and <40 H D-Dimer > 25389.00 H Test 10/13/16 05:00 10/13/16 05:13 10/13/16 06:42 10/13/16 07:46 White Blood Count 25.0 H Red Blood Count 3.65 L Hemoglobin 10.6 L Hematocrit 33.5 L Mean Corpuscular Volume 91.8 Mean Corpuscular Hemoglobin 29.0 Mean Corpuscular Hemoglobin Concent 31.6 L Red Cell Distribution Width 20.5 H Platelet Count 84 L Mean Platelet Volume 11.9 H Neutrophils % Segmented Neutrophils % (Manual) 84 H Band Neutrophils % (Manual) 7 H Lymphocytes % Lymphocytes % (Manual) 8 L Monocytes % Monocytes % (Manual) 1 Eosinophils % Basophils % Nucleated Red Blood Cells % 22 H Neutrophils # Neutrophils # (Manual) 21.4 H Band Neutrophils # 1.7 H Absolute Lymphocytes (Manual) 2.0 Lymphocytes # Monocytes # Absolute Monocytes (Manual) 0.2 L Eosinophils # Basophils # Nucleated Red Blood Cells # Thrombocytosis 2 H Platelet Estimate DECREASED Polychromasia 1+ Poikilocytosis 3+ Anisocytosis 2+ Microcytosis 1+ Macrocytosis 2+ Prothrombin Time 26.1 H Prothrombin Time Ratio 2.0 INR International Normalized Ratio 2.36 Activated Partial Thromboplast Time 48.8 H Sodium Level 138 Potassium Level 4.6 Chloride Level 86 L Carbon Dioxide Level 15 L Anion Gap 42 H Blood Urea Nitrogen 21 H Creatinine 2.98 H Glucose Level 252 H Calcium Level 6.8 L Phosphorus Level 6.7 H Magnesium Level 1.9 Lab Scanned Report BLOOD TRANSFUSION Blood Gas Specimen Source Blood arterial Arterial Blood Date Drawn 10/13/2016 7:10:56 AM Arterial Blood pH (Temp corrected) 7.285 *L Arterial Blood pCO2 (Temp correct) 23.4 L Arterial Blood pO2 (Temp corrected) 99.3 H Arterial Blood HCO3 10.9 L Arterial Blood Base Excess -13.9 L Arterial Blood Oxygen Saturation 96.4 Enmanuel Test N/A Arterial Blood Gas Puncture Site Right Brachial Arterial Blood Carboxyhemoglobin 0.3 Arterial Blood Methemoglobin 0.2 Blood Gas A-a O2 Differential 482.5 H Oxyhemoglobin Percent 95.9 Total Hemoglobin 12.5 Blood Gas Temperature 37.0 Blood Gas Respiration Rate 14.0 Blood Gas Actual Respiration Rate 32 Blood Gas Modality VENT - AC FiO2 85.0 Blood Gas Tidal Volume 400.0 Blood Gas Low PEEP Setting 5.0 Blood Gas Critical Value Read Back L PETE RN Blood Gas Notified Whom TM Blood Gas Notified Time 10/13/2016 7:18:42 AM Bedside Glucose 177 Test 10/13/16 08:05 Lactic Acid Level 23.6 *H Medications Medications Current Medications Ferrous Sulfate (Ferrous Sulfate (Ec)) 325 mg DAILY PO Last administered on 10/13 09:33; Admin Dose 325 MG; Start 09/27/16 at 09:00 Hydralazine HCl (Apresoline) 10 mg BID PO Last administered on 10/07/16 21:46 ; Admin Dose 10 MG; Start 09/27/16 at 09:00 Metoprolol Succinate (Toprol Xl) 25 mg DAILY PO Last administered on 10/08/16 09:20; Admin Dose 25 MG; Start 09/27/16 at 09:00 Multivit/Ca Carb/ B Cmplx/FA/Prenat (Billie-Roge) 1 tab DAILY PO Last administered on 10/13/16 09:34; Admin Dose 1 TAB; Start 09/27/16 at 09:00 Polyethylene Glycol (Miralax) 17 gm DAILY PO Last administered on 10/13/16 09: 34; Admin Dose 17 GM; Start 09/27/16 at 09:00 Pantoprazole (Protonix Tab) 40 mg DAILY@06 PO Last administered on 10/12/16 06: 36; Admin Dose 40 MG; Start 09/27/16 at 06:00 Zolpidem Tartrate (Ambien) 5 mg HS PRN PO INSOMNIA; Start 09/27/16 at 01:00 Acetaminophen (Tylenol Tab) 650 mg Q6H PRN PO PAIN AND OR ELEVATED TEMP Last administered on 10/13/16 09:51; Admin Dose 650 MG; Start 09/27/16 at 01:00 Ondansetron HCl (Zofran Inj) 4 mg Q6H PRN IV NAUSEA AND/OR VOMITING Last administered on 10/11/16 14:36; Admin Dose 4 MG; Start 09/27/16 at 01:00 IV Flush (NS 10 ml) 3 ml Q8 IV Last administered on 10/13/16 05:13; Admin Dose 3 ML; Start 09/27/16 at 06:00 Diagnostic Test (Pha) (Accu-Chek) 1 ea 02 XX Last administered on 10/02/16 02: 12; Admin Dose 1 EA; Start 09/28/16 at 02:00 Miscellaneous Information 1 ea NOTE XX ; Start 09/27/16 at 07:30 Glucose (Glutose) 15 gm Q15M PRN PO DECREASED GLUCOSE; Start 09/27/16 at 07:30 Glucose (Glutose) 22.5 gm Q15M PRN PO DECREASED GLUCOSE; Start 09/27/16 at 07: 30 Dextrose (D50w Syringe) 25 ml Q15M PRN IV DECREASED GLUCOSE; Start 09/27/16 at 07:30 Dextrose (D50w Syringe) 50 ml Q15M PRN IV DECREASED GLUCOSE; Start 09/27/16 at 07:30 Glucagon (Glucagen) 1 mg Q15M PRN IM DECREASED GLUCOSE; Start 09/27/16 at 07:30 Glucose (Glutose) 15 gm Q15M PRN BUCCAL DECREASED GLUCOSE; Start 09/27/16 at 07 :30 Acetaminophen/ Hydrocodone Bitart ([place] (10/325)) 1.5 tab Q8H PO Last administered on 10/11/16 06:46; Admin Dose 1.5 TAB; Start 09/27/16 at 15:30 Clonidine (Catapres) 0.1 mg Q6H PRN PO SBP>170; Start 09/27/16 at 12:00 Mupirocin (Bactroban) 1 applic BID TOP Last administered on 10/13/16 09:34; Admin Dose 1 APPLIC; Start 09/28/16 at 21:00 Atorvastatin Calcium (Lipitor) 40 mg DAILY@21 PO Last administered on 10/10/16 20:58; Admin Dose 40 MG; Start 09/29/16 at 21:00 Levofloxacin (Levaquin) 250 mg Q48H PO Last administered on 10/12/16 14:26; Admin Dose 250 MG; Start 09/30/16 at 15:00 Aspirin (Aspirin) 81 mg DAILY PO Last administered on 10/11/16 09:20; Admin Dose 81 MG; Start 10/05/16 at 09:00; Status Future Hold Clopidogrel Bisulfate 75 mg 75 mg DAILY PO Last administered on 10/11/16 09:19 ; Admin Dose 75 MG; Start 10/05/16 at 09:00; Status Future Hold Vancomycin HCl (Vancocin) 250 ml @ 125 mls/hr Q96H IVPB Last administered on 17:48; Admin Dose 125 MLS/HR; Start 10/05/16 at 18:00 Morphine Sulfate 2 mg 2 mg Q2H PRN IV PAIN Last administered on 10/10/16 16:33 ; Admin Dose 2 MG; Start 10/09/16 at 14:30 Piperacillin Sod/ Tazobactam Sod 50 ml @ 100 mls/hr Q8 IVPB Last administered on 10/13/16 05:13; Admin Dose 100 MLS/HR; Start 10/11/16 at 22:00 Vasopressin 60 unit/Dextrose 60 ml @ 1.2 mls/hr Q12H IV Last administered on 15:45; Admin Dose 2.4 MLS/HR; Start 10/12/16 at 03:00 Sodium Bicarbonate 150 meq/Dextrose 1,000 ml @ 75 mls/hr [id number] IV Last administered on 10/13/16 06:04; Admin Dose 150 MLS/HR; Start 10/12/16 at 07:00 Norepinephrine 32 mg/Dextrose 250 ml @ 0.46 mls/hr TITRATE IV Last administered on 10/13/16 05:22; Admin Dose 4.68 MLS/HR; Start 10/12/16 at 07:00 Phenylephrine HCl/ Dextrose (Fabrizio-Syneph/D5W) 250 ml @ 18.75 mls/ hr TITRATE IV Last administered on 10/12/16 22:17; Admin Dose 9.37 MLS/HR; Start 10/12/16 at 07:00 Miscellaneous Information 1 ONCE ONCE XX ; Start 10/13/16 at 17:00; Stop at 17:01 Dopamine HCl/ Dextrose 250 ml @ 3.63 mls/hr TITRATE IV Last administered on 07:28; Admin Dose 36.3 MLS/HR; Start 10/12/16 at 13:30 YI RODRIGUEZ Oct 13, 2016 10:50
--- NOTE | 2016-10-13 11:23 | CONS ---
Date/Time of Note Date/Time of Note DATE: 10/13/16 TIME: 11:20 Assessment/Plan Assessment/Plan Additional Assessment/Plan Chest x-ray was reviewed from today which is showing endotracheal tube to be at an adequate level, there is mild right lower lobe subsegmental atelectasis. Ventilator setting; AC of 14, tidal volume 400, PEEP of 5, 85% FiO2. Patient currently on Levophed at 16 mics per minute, vasopressin 0.04 U/min, dopamine 20 mics per kilogram per minute. Patient also on sodium bicarb drip. Assessment and recommendations; next 1. Patient admitted for cellulitis involving lower extremity status post revascularization. 2. Severe sepsis and profound shock. 3. History of end-stage renal disease. 4. History of hypertension. 5. Peripheral vascular disease. 6. Mild right lower lobe atelectasis. 7. Severe hypoxemia. Continue current treatment. Patient currently too unstable to undergo hemodialysis. I did have a very detailed discussion patient's daughter at bedside and answered all her questions apprised her of her mother is very critical condition. Prognosis remains extremely poor.Code status needs to be discussed with the family. 35 minutes of critical care time was spent evaluating the patient. Consultation Date/Type/Reason Admit Date/Time Sep 26, 2016 at 16:53 Initial Consult Date 10/12/16 Type of Consultation: Pulmonary/critical care Referring Provider: BRANDI ERICKSON DO 24 HR Interval Summary Free Text/Dictation Patient condition remains extremely critical. Requiring high-dose pressor support for blood pressure maintenance. General exam; elderly woman, orally intubated, awake but unresponsive to any commands. Exam/Review of Systems Vital Signs Vitals Vital Signs Date Time Temp Pulse Resp B/P Pulse Ox O2 Delivery O2 Flow Rate FiO2 10/13/16 10:00 104 33 60/45 96 10/13/16 09:16 85 10/13/16 07:45 100.3 10/13/16 07:30 Mechanical Ventilator 10/10/16 17:02 2.0 Intake and Output 10/12/16 10/12/16 10/13/16 15:00 23:00 07:00 Intake Total 2731.165 ml 2496.055 ml 3084.62 ml Balance 2731.165 ml 2496.055 ml 3084.62 ml Exam HEENT exam; supple neck, no JVD. No lymphadenopathy. Midline trachea. No thyromegaly. Orally intubated. She has multiple carious teeth. Chest exam; diminished but clear breath sound. There is a well-healed sternal scar. Pacemaker in left chest wall. S1-S2 audible, no murmurs. Abdomen exam; soft, bowel sounds are sluggish to absent. No organomegaly felt. Extremity exam; multiple ecchymosis present in all 4 extremities. Peripheral pulses not palpable. [employer] exam; patient is awake but does not follow any commands. Results Result Diagram: 10/13/16 0500 10/13/16 0500 Results 24 hrs Laboratory Tests Test 10/12/16 12:40 10/12/16 13:45 10/12/16 18:37 10/12/16 19:09 Bedside Glucose 188 230 H Hemoglobin 8.4 L 10.6 #L Hematocrit 27.1 L 32.7 #L White Blood Count 30.5 H Red Blood Count 3.50 L Mean Corpuscular Volume 93.4 Mean Corpuscular Hemoglobin 30.3 Mean Corpuscular Hemoglobin Concent 32.4 Red Cell Distribution Width 19.6 H Platelet Count 72 L Mean Platelet Volume 12.5 H Neutrophils % 88.1 H Lymphocytes % 4.8 L Monocytes % 4.4 Eosinophils % 0.0 Basophils % 0.3 Nucleated Red Blood Cells % 7.5 H Neutrophils # 26.9 H Lymphocytes # 1.5 Monocytes # 1.3 H Eosinophils # 0.0 Basophils # 0.1 Nucleated Red Blood Cells # 2.3 H Prothrombin Time 30.8 H Prothrombin Time Ratio 2.4 INR International Normalized Ratio 2.91 Activated Partial Thromboplast Time 47.1 H Sodium Level 138 Potassium Level 4.5 Chloride Level 88 L Carbon Dioxide Level 14 L Anion Gap 41 H Blood Urea Nitrogen 20 Creatinine 2.87 H Glucose Level 314 #H Lactic Acid Level 21.1 *H Calcium Level 7.0 L Total Bilirubin 1.7 H Direct Bilirubin 1.00 H Indirect Bilirubin 0.7 Aspartate Amino Transf (AST/SGOT) 661 H Alanine Aminotransferase (ALT/SGPT) 170 H Alkaline Phosphatase 88 Total Protein 4.9 L Albumin 2.8 L Globulin 2.10 Albumin/Globulin Ratio 1.33 Test 10/12/16 20:24 10/12/16 21:11 10/12/16 22:50 10/13/16 02:20 Bedside Glucose 231 H 240 H Blood Gas Specimen Source Blood arterial Arterial Blood Date Drawn 10/12/2016 10:14:36 PM Arterial Blood pH (Temp corrected) 7.264 *L Arterial Blood pCO2 (Temp correct) 25.7 L Arterial Blood pO2 (Temp corrected) 123.2 H Arterial Blood HCO3 11.4 L Arterial Blood Base Excess -13.9 L Arterial Blood Oxygen Saturation 97.6 Enmanuel Test ACCEPTAB Arterial Blood Gas Puncture Site Right Radial Arterial Blood Carboxyhemoglobin 0.2 Arterial Blood Methemoglobin 0.3 Blood Gas A-a O2 Differential 564.1 H Oxyhemoglobin Percent 97.1 Total Hemoglobin 13.2 Blood Gas Temperature 37.0 Blood Gas Respiration Rate 14.0 Blood Gas Actual Respiration Rate 28 Blood Gas Modality VENT - AC FiO2 100.0 Blood Gas Tidal Volume 400.0 Blood Gas Low PEEP Setting 5.0 Blood Gas Inspiratory Pressure 21.0 Blood Gas Critical Value Read Back Nelson ALANIS RN Blood Gas Notified Whom Sebastian TAPIA [employer] TEACHER Blood Gas Notified Time 10/12/2016 10:25:52 PM Platelet Count 57 L Prothrombin Time 30.7 H Prothrombin Time Ratio 2.4 INR International Normalized Ratio 2.90 Activated Partial Thromboplast Time 50.0 H Thrombin Time 18.0 Fibrinogen 206.0 L Plasma Fibrin Degradation Products >10 and <40 H D-Dimer > 51799.00 H Test 10/13/16 05:00 10/13/16 05:13 10/13/16 06:42 10/13/16 07:46 White Blood Count 25.0 H Red Blood Count 3.65 L Hemoglobin 10.6 L Hematocrit 33.5 L Mean Corpuscular Volume 91.8 Mean Corpuscular Hemoglobin 29.0 Mean Corpuscular Hemoglobin Concent 31.6 L Red Cell Distribution Width 20.5 H Platelet Count 84 L Mean Platelet Volume 11.9 H Neutrophils % Segmented Neutrophils % (Manual) 84 H Band Neutrophils % (Manual) 7 H Lymphocytes % Lymphocytes % (Manual) 8 L Monocytes % Monocytes % (Manual) 1 Eosinophils % Basophils % Nucleated Red Blood Cells % 22 H Neutrophils # Neutrophils # (Manual) 21.4 H Band Neutrophils # 1.7 H Absolute Lymphocytes (Manual) 2.0 Lymphocytes # Monocytes # Absolute Monocytes (Manual) 0.2 L Eosinophils # Basophils # Nucleated Red Blood Cells # Thrombocytosis 2 H Platelet Estimate DECREASED Polychromasia 1+ Poikilocytosis 3+ Anisocytosis 2+ Microcytosis 1+ Macrocytosis 2+ Prothrombin Time 26.1 H Prothrombin Time Ratio 2.0 INR International Normalized Ratio 2.36 Activated Partial Thromboplast Time 48.8 H Sodium Level 138 Potassium Level 4.6 Chloride Level 86 L Carbon Dioxide Level 15 L Anion Gap 42 H Blood Urea Nitrogen 21 H Creatinine 2.98 H Glucose Level 252 H Calcium Level 6.8 L Phosphorus Level 6.7 H Magnesium Level 1.9 Lab Scanned Report BLOOD TRANSFUSION Blood Gas Specimen Source Blood arterial Arterial Blood Date Drawn 10/13/2016 7:10:56 AM Arterial Blood pH (Temp corrected) 7.285 *L Arterial Blood pCO2 (Temp correct) 23.4 L Arterial Blood pO2 (Temp corrected) 99.3 H Arterial Blood HCO3 10.9 L Arterial Blood Base Excess -13.9 L Arterial Blood Oxygen Saturation 96.4 Enmanuel Test N/A Arterial Blood Gas Puncture Site Right Brachial Arterial Blood Carboxyhemoglobin 0.3 Arterial Blood Methemoglobin 0.2 Blood Gas A-a O2 Differential 482.5 H Oxyhemoglobin Percent 95.9 Total Hemoglobin 12.5 Blood Gas Temperature 37.0 Blood Gas Respiration Rate 14.0 Blood Gas Actual Respiration Rate 32 Blood Gas Modality VENT - AC FiO2 85.0 Blood Gas Tidal Volume 400.0 Blood Gas Low PEEP Setting 5.0 Blood Gas Critical Value Read Back L PETE SULLIVAN Blood Gas Notified Whom TM Blood Gas Notified Time 10/13/2016 7:18:42 AM Bedside Glucose 177 Test 10/13/16 08:05 Lactic Acid Level 23.6 *H Medications Medications Current Medications Ferrous Sulfate (Ferrous Sulfate (Ec)) 325 mg DAILY PO Last administered on 10/13 09:33; Admin Dose 325 MG; Start 09/27/16 at 09:00 Hydralazine HCl (Apresoline) 10 mg BID PO Last administered on 10/07/16 21:46 ; Admin Dose 10 MG; Start 09/27/16 at 09:00 Metoprolol Succinate (Toprol Xl) 25 mg DAILY PO Last administered on 10/08/16 09:20; Admin Dose 25 MG; Start 09/27/16 at 09:00 Multivit/Ca Carb/ B Cmplx/FA/Prenat (Billie-Roge) 1 tab DAILY PO Last administered on 10/13/16 09:34; Admin Dose 1 TAB; Start 09/27/16 at 09:00 Polyethylene Glycol (Miralax) 17 gm DAILY PO Last administered on 10/13/16 09: 34; Admin Dose 17 GM; Start 09/27/16 at 09:00 Pantoprazole (Protonix Tab) 40 mg DAILY@06 PO Last administered on 10/12/16 06: 36; Admin Dose 40 MG; Start 09/27/16 at 06:00 Zolpidem Tartrate (Ambien) 5 mg HS PRN PO INSOMNIA; Start 09/27/16 at 01:00 Acetaminophen (Tylenol Tab) 650 mg Q6H PRN PO PAIN AND OR ELEVATED TEMP Last administered on 10/13/16 09:51; Admin Dose 650 MG; Start 09/27/16 at 01:00 Ondansetron HCl (Zofran Inj) 4 mg Q6H PRN IV NAUSEA AND/OR VOMITING Last administered on 10/11/16 14:36; Admin Dose 4 MG; Start 09/27/16 at 01:00 IV Flush (NS 10 ml) 3 ml Q8 IV Last administered on 10/13/16 05:13; Admin Dose 3 ML; Start 09/27/16 at 06:00 Diagnostic Test (Pha) (Accu-Chek) 1 ea 02 XX Last administered on 10/02/16 02: 12; Admin Dose 1 EA; Start 09/28/16 at 02:00 Miscellaneous Information 1 ea NOTE XX ; Start 09/27/16 at 07:30 Glucose (Glutose) 15 gm Q15M PRN PO DECREASED GLUCOSE; Start 09/27/16 at 07:30 Glucose (Glutose) 22.5 gm Q15M PRN PO DECREASED GLUCOSE; Start 09/27/16 at 07: 30 Dextrose (D50w Syringe) 25 ml Q15M PRN IV DECREASED GLUCOSE; Start 09/27/16 at 07:30 Dextrose (D50w Syringe) 50 ml Q15M PRN IV DECREASED GLUCOSE; Start 09/27/16 at 07:30 Glucagon (Glucagen) 1 mg Q15M PRN IM DECREASED GLUCOSE; Start 09/27/16 at 07:30 Glucose (Glutose) 15 gm Q15M PRN BUCCAL DECREASED GLUCOSE; Start 09/27/16 at 07 :30 Acetaminophen/ Hydrocodone Bitart ([place] (10/325)) 1.5 tab Q8H PO Last administered on 10/11/16 06:46; Admin Dose 1.5 TAB; Start 09/27/16 at 15:30 Clonidine (Catapres) 0.1 mg Q6H PRN PO SBP>170; Start 09/27/16 at 12:00 Mupirocin (Bactroban) 1 applic BID TOP Last administered on 10/13/16 09:34; Admin Dose 1 APPLIC; Start 09/28/16 at 21:00 Atorvastatin Calcium (Lipitor) 40 mg DAILY@21 PO Last administered on 10/10/16 20:58; Admin Dose 40 MG; Start 09/29/16 at 21:00 Levofloxacin (Levaquin) 250 mg Q48H PO Last administered on 10/12/16 14:26; Admin Dose 250 MG; Start 09/30/16 at 15:00 Aspirin (Aspirin) 81 mg DAILY PO Last administered on 10/11/16 09:20; Admin Dose 81 MG; Start 10/05/16 at 09:00; Status Future Hold Clopidogrel Bisulfate 75 mg 75 mg DAILY PO Last administered on 10/11/16 09:19 ; Admin Dose 75 MG; Start 10/05/16 at 09:00; Status Future Hold Vancomycin HCl (Vancocin) 250 ml @ 125 mls/hr Q96H IVPB Last administered on 17:48; Admin Dose 125 MLS/HR; Start 10/05/16 at 18:00 Morphine Sulfate 2 mg 2 mg Q2H PRN IV PAIN Last administered on 10/10/16 16:33 ; Admin Dose 2 MG; Start 10/09/16 at 14:30 Piperacillin Sod/ Tazobactam Sod 50 ml @ 100 mls/hr Q8 IVPB Last administered on 10/13/16 05:13; Admin Dose 100 MLS/HR; Start 10/11/16 at 22:00 Vasopressin 60 unit/Dextrose 60 ml @ 1.2 mls/hr Q12H IV Last administered on 15:45; Admin Dose 2.4 MLS/HR; Start 10/12/16 at 03:00 Sodium Bicarbonate 150 meq/Dextrose 1,000 ml @ 75 mls/hr [id number] IV Last administered on 10/13/16 06:04; Admin Dose 150 MLS/HR; Start 10/12/16 at 07:00 Norepinephrine 32 mg/Dextrose 250 ml @ 0.46 mls/hr TITRATE IV Last administered on 10/13/16 05:22; Admin Dose 4.68 MLS/HR; Start 10/12/16 at 07:00 Phenylephrine HCl/ Dextrose (Fabrizio-Syneph/D5W) 250 ml @ 18.75 mls/ hr TITRATE IV Last administered on 10/12/16 22:17; Admin Dose 9.37 MLS/HR; Start 10/12/16 at 07:00 Miscellaneous Information 1 ONCE ONCE XX ; Start 10/13/16 at 17:00; Stop at 17:01 Dopamine HCl/ Dextrose 250 ml @ 3.63 mls/hr TITRATE IV Last administered on 07:28; Admin Dose 36.3 MLS/HR; Start 10/12/16 at 13:30 PILLO FRY Oct 13, 2016 11:23
--- NOTE | 2016-10-13 12:19 | CONS ---
Date/Time of Note Date/Time of Note DATE: 10/13/16 TIME: 12:12 Assessment/Plan Assessment/Plan Chief Complaint/Hosp Course ID PROGRESS NOTE RECENT EVENT: ->s/p CODE Blue 10/11 ~2054 w/ ROSC ~2113 * 10/12/16 (+)Cardiac arrest in setting of anemia-> s/p PRBCs + pressors * 10/12/16 CXR There is a right lower lobe pneumonia. CURRENT ABX: => Levaquin +Vanco IV post HD +Zosyn #3 TOTAL ABX DAY #17 Start-date 09/27 24H INTERVAL SUMMARY * TMax 1003., ETT-> Vent, daughter present given update on RLL PNA * No fever today, WBC elevated post cardiac arrest PHYSICAL EXAMINATION: GENERAL: 75 yo F HEENT: Unremarkable NECK: Supple, trachea midline. CHEST: Rise symmetrical without dyspnea HEART: RRR ABDOMEN: Soft, NT EXTREMITIES: Warm, gangrenous changes toes, DSG C/.D/I ID ASSESSMENT: 75 yo F w/ 1. s/p Cardiac arrest in setting of anemia CODE Blue 10/11 ~2054 w/ ROSC ~2113 * s/p PRBCs + pressors 2. Aspiration PNA during cardiac arrest/CPR * 10/12/16 CXR There is a right lower lobe pneumonia. 3. Sepsis on pressors w/(+)SIRS === no fevers, (+)leukocytosis * s/p staph bacteremia==> Staph "CoNS" 1/2 bottles, possibly a contaminated sample 4. 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 Severe peripheral arterial disease, * s/p 10/10/16 LLEXT Arterectomy + Angioplasty * s/p 09/29/16 angiogram and iliac artery angioplasty and stent placement * s/p 10/04/16 [employer] INS[employer]OR to graft now patent -> started on Plavix 6. End-stage renal disease, hemodialysis dependent * Left upper extremity AV fistula 7. DM w/complications of DM polyneuropathies: Nephro, Peripheral, Autonomic 8. CAD, w/Hx cardiomyopathy, hx of CABG, hx of non-ST elevation myocardial infarction type 2 9. Anemia of chronic disease, Epogen (+)MRSA Nares-> Bactroban CURRENT ABX: => Levaquin +Vanco IV post HD +Zosyn #3 TOTAL ABX DAY #17 Start-date 09/27 ID RECOMMENDATIONS 1. Zosyn added last night post cardiac arrest for concern ASP RLL PNA 2. Continue current ABX 3. Sputum Cx, urine cx ordered ->Pending 4. Repeat BX PRN Temp >101.5 . . Problems: Consultation Date/Type/Reason Admit Date/Time Sep 26, 2016 at 16:53 Type of Consultation: ID Referring Provider: BRANDI ERICKSON DO Exam/Review of Systems Vital Signs Vitals Vital Signs Date Time Temp Pulse Resp B/P Pulse Ox O2 Delivery O2 Flow Rate FiO2 10/13/16 11:40 100 10/13/16 11:15 86 33 92 10/13/16 11:15 77/46 10/13/16 07:45 100.3 10/13/16 07:30 Mechanical Ventilator 10/10/16 17:02 2.0 Intake and Output 10/12/16 10/12/16 10/13/16 15:00 23:00 07:00 Intake Total 2731.165 ml 2496.055 ml 3084.62 ml Balance 2731.165 ml 2496.055 ml 3084.62 ml Results Result Diagram: 10/13/16 0500 10/13/16 0500 Results 24 hrs Laboratory Tests Test 10/12/16 12:40 10/12/16 13:45 10/12/16 18:37 10/12/16 19:09 Bedside Glucose 188 230 H Hemoglobin 8.4 L 10.6 #L Hematocrit 27.1 L 32.7 #L White Blood Count 30.5 H Red Blood Count 3.50 L Mean Corpuscular Volume 93.4 Mean Corpuscular Hemoglobin 30.3 Mean Corpuscular Hemoglobin Concent 32.4 Red Cell Distribution Width 19.6 H Platelet Count 72 L Mean Platelet Volume 12.5 H Neutrophils % 88.1 H Lymphocytes % 4.8 L Monocytes % 4.4 Eosinophils % 0.0 Basophils % 0.3 Nucleated Red Blood Cells % 7.5 H Neutrophils # 26.9 H Lymphocytes # 1.5 Monocytes # 1.3 H Eosinophils # 0.0 Basophils # 0.1 Nucleated Red Blood Cells # 2.3 H Prothrombin Time 30.8 H Prothrombin Time Ratio 2.4 INR International Normalized Ratio 2.91 Activated Partial Thromboplast Time 47.1 H Sodium Level 138 Potassium Level 4.5 Chloride Level 88 L Carbon Dioxide Level 14 L Anion Gap 41 H Blood Urea Nitrogen 20 Creatinine 2.87 H Glucose Level 314 #H Lactic Acid Level 21.1 *H Calcium Level 7.0 L Total Bilirubin 1.7 H Direct Bilirubin 1.00 H Indirect Bilirubin 0.7 Aspartate Amino Transf (AST/SGOT) 661 H Alanine Aminotransferase (ALT/SGPT) 170 H Alkaline Phosphatase 88 Total Protein 4.9 L Albumin 2.8 L Globulin 2.10 Albumin/Globulin Ratio 1.33 Test 10/12/16 20:24 10/12/16 21:11 10/12/16 22:50 10/13/16 02:20 Bedside Glucose 231 H 240 H Blood Gas Specimen Source Blood arterial Arterial Blood Date Drawn 10/12/2016 10:14:36 PM Arterial Blood pH (Temp corrected) 7.264 *L Arterial Blood pCO2 (Temp correct) 25.7 L Arterial Blood pO2 (Temp corrected) 123.2 H Arterial Blood HCO3 11.4 L Arterial Blood Base Excess -13.9 L Arterial Blood Oxygen Saturation 97.6 Enmanuel Test ACCEPTAB Arterial Blood Gas Puncture Site Right Radial Arterial Blood Carboxyhemoglobin 0.2 Arterial Blood Methemoglobin 0.3 Blood Gas A-a O2 Differential 564.1 H Oxyhemoglobin Percent 97.1 Total Hemoglobin 13.2 Blood Gas Temperature 37.0 Blood Gas Respiration Rate 14.0 Blood Gas Actual Respiration Rate 28 Blood Gas Modality VENT - AC FiO2 100.0 Blood Gas Tidal Volume 400.0 Blood Gas Low PEEP Setting 5.0 Blood Gas Inspiratory Pressure 21.0 Blood Gas Critical Value Read Back Nelson ALANIS RN Blood Gas Notified Whom Sebastian TAPIA RCP Blood Gas Notified Time 10/12/2016 10:25:52 PM Platelet Count 57 L Prothrombin Time 30.7 H Prothrombin Time Ratio 2.4 INR International Normalized Ratio 2.90 Activated Partial Thromboplast Time 50.0 H Thrombin Time 18.0 Fibrinogen 206.0 L Plasma Fibrin Degradation Products >10 and <40 H D-Dimer > 48401.00 H Test 10/13/16 05:00 10/13/16 05:13 10/13/16 06:42 10/13/16 07:46 White Blood Count 25.0 H Red Blood Count 3.65 L Hemoglobin 10.6 L Hematocrit 33.5 L Mean Corpuscular Volume 91.8 Mean Corpuscular Hemoglobin 29.0 Mean Corpuscular Hemoglobin Concent 31.6 L Red Cell Distribution Width 20.5 H Platelet Count 84 L Mean Platelet Volume 11.9 H Neutrophils % Segmented Neutrophils % (Manual) 84 H Band Neutrophils % (Manual) 7 H Lymphocytes % Lymphocytes % (Manual) 8 L Monocytes % Monocytes % (Manual) 1 Eosinophils % Basophils % Nucleated Red Blood Cells % 22 H Neutrophils # Neutrophils # (Manual) 21.4 H Band Neutrophils # 1.7 H Absolute Lymphocytes (Manual) 2.0 Lymphocytes # Monocytes # Absolute Monocytes (Manual) 0.2 L Eosinophils # Basophils # Nucleated Red Blood Cells # Thrombocytosis 2 H Platelet Estimate DECREASED Polychromasia 1+ Poikilocytosis 3+ Anisocytosis 2+ Microcytosis 1+ Macrocytosis 2+ Prothrombin Time 26.1 H Prothrombin Time Ratio 2.0 INR International Normalized Ratio 2.36 Activated Partial Thromboplast Time 48.8 H Sodium Level 138 Potassium Level 4.6 Chloride Level 86 L Carbon Dioxide Level 15 L Anion Gap 42 H Blood Urea Nitrogen 21 H Creatinine 2.98 H Glucose Level 252 H Calcium Level 6.8 L Phosphorus Level 6.7 H Magnesium Level 1.9 Lab Scanned Report BLOOD TRANSFUSION Blood Gas Specimen Source Blood arterial Arterial Blood Date Drawn 10/13/2016 7:10:56 AM Arterial Blood pH (Temp corrected) 7.285 *L Arterial Blood pCO2 (Temp correct) 23.4 L Arterial Blood pO2 (Temp corrected) 99.3 H Arterial Blood HCO3 10.9 L Arterial Blood Base Excess -13.9 L Arterial Blood Oxygen Saturation 96.4 Enmanuel Test N/A Arterial Blood Gas Puncture Site Right Brachial Arterial Blood Carboxyhemoglobin 0.3 Arterial Blood Methemoglobin 0.2 Blood Gas A-a O2 Differential 482.5 H Oxyhemoglobin Percent 95.9 Total Hemoglobin 12.5 Blood Gas Temperature 37.0 Blood Gas Respiration Rate 14.0 Blood Gas Actual Respiration Rate 32 Blood Gas Modality VENT - AC FiO2 85.0 Blood Gas Tidal Volume 400.0 Blood Gas Low PEEP Setting 5.0 Blood Gas Critical Value Read Back L PETE RN Blood Gas Notified Whom TM Blood Gas Notified Time 10/13/2016 7:18:42 AM Bedside Glucose 177 Test 10/13/16 08:05 Lactic Acid Level 23.6 *H Medications Medications Current Medications Ferrous Sulfate (Ferrous Sulfate (Ec)) 325 mg DAILY PO Last administered on 10/13 09:33; Admin Dose 325 MG; Start 09/27/16 at 09:00 Hydralazine HCl (Apresoline) 10 mg BID PO Last administered on 10/07/16 21:46 ; Admin Dose 10 MG; Start 09/27/16 at 09:00 Metoprolol Succinate (Toprol Xl) 25 mg DAILY PO Last administered on 10/08/16 09:20; Admin Dose 25 MG; Start 09/27/16 at 09:00 Multivit/Ca Carb/ B Cmplx/FA/Prenat (Billie-Roge) 1 tab DAILY PO Last administered on 10/13/16 09:34; Admin Dose 1 TAB; Start 09/27/16 at 09:00 Polyethylene Glycol (Miralax) 17 gm DAILY PO Last administered on 10/13/16 09: 34; Admin Dose 17 GM; Start 09/27/16 at 09:00 Pantoprazole (Protonix Tab) 40 mg DAILY@06 PO Last administered on 10/12/16 06: 36; Admin Dose 40 MG; Start 09/27/16 at 06:00 Zolpidem Tartrate (Ambien) 5 mg HS PRN PO INSOMNIA; Start 09/27/16 at 01:00 Acetaminophen (Tylenol Tab) 650 mg Q6H PRN PO PAIN AND OR ELEVATED TEMP Last administered on 10/13/16 09:51; Admin Dose 650 MG; Start 09/27/16 at 01:00 Ondansetron HCl (Zofran Inj) 4 mg Q6H PRN IV NAUSEA AND/OR VOMITING Last administered on 10/11/16 14:36; Admin Dose 4 MG; Start 09/27/16 at 01:00 IV Flush (NS 10 ml) 3 ml Q8 IV Last administered on 10/13/16 05:13; Admin Dose 3 ML; Start 09/27/16 at 06:00 Diagnostic Test (Pha) (Accu-Chek) 1 ea 02 XX Last administered on 10/02/16 02: 12; Admin Dose 1 EA; Start 09/28/16 at 02:00 Miscellaneous Information 1 ea NOTE XX ; Start 09/27/16 at 07:30 Glucose (Glutose) 15 gm Q15M PRN PO DECREASED GLUCOSE; Start 09/27/16 at 07:30 Glucose (Glutose) 22.5 gm Q15M PRN PO DECREASED GLUCOSE; Start 09/27/16 at 07: 30 Dextrose (D50w Syringe) 25 ml Q15M PRN IV DECREASED GLUCOSE; Start 09/27/16 at 07:30 Dextrose (D50w Syringe) 50 ml Q15M PRN IV DECREASED GLUCOSE; Start 09/27/16 at 07:30 Glucagon (Glucagen) 1 mg Q15M PRN IM DECREASED GLUCOSE; Start 09/27/16 at 07:30 Glucose (Glutose) 15 gm Q15M PRN BUCCAL DECREASED GLUCOSE; Start 09/27/16 at 07 :30 Acetaminophen/ Hydrocodone Bitart ([place] (10/325)) 1.5 tab Q8H PO Last administered on 10/11/16 06:46; Admin Dose 1.5 TAB; Start 09/27/16 at 15:30 Clonidine (Catapres) 0.1 mg Q6H PRN PO SBP>170; Start 09/27/16 at 12:00 Mupirocin (Bactroban) 1 applic BID TOP Last administered on 10/13/16 09:34; Admin Dose 1 APPLIC; Start 09/28/16 at 21:00 Atorvastatin Calcium (Lipitor) 40 mg DAILY@21 PO Last administered on 10/10/16 20:58; Admin Dose 40 MG; Start 09/29/16 at 21:00 Levofloxacin (Levaquin) 250 mg Q48H PO Last administered on 10/12/16 14:26; Admin Dose 250 MG; Start 09/30/16 at 15:00 Aspirin (Aspirin) 81 mg DAILY PO Last administered on 10/11/16 09:20; Admin Dose 81 MG; Start 10/05/16 at 09:00; Status Future Hold Clopidogrel Bisulfate 75 mg 75 mg DAILY PO Last administered on 10/11/16 09:19 ; Admin Dose 75 MG; Start 10/05/16 at 09:00; Status Future Hold Vancomycin HCl (Vancocin) 250 ml @ 125 mls/hr Q96H IVPB Last administered on 17:48; Admin Dose 125 MLS/HR; Start 10/05/16 at 18:00 Morphine Sulfate 2 mg 2 mg Q2H PRN IV PAIN Last administered on 10/10/16 16:33 ; Admin Dose 2 MG; Start 10/09/16 at 14:30 Piperacillin Sod/ Tazobactam Sod 50 ml @ 100 mls/hr Q8 IVPB Last administered on 10/13/16 05:13; Admin Dose 100 MLS/HR; Start 10/11/16 at 22:00 Vasopressin 60 unit/Dextrose 60 ml @ 1.2 mls/hr Q12H IV Last administered on 15:45; Admin Dose 2.4 MLS/HR; Start 10/12/16 at 03:00 Sodium Bicarbonate 150 meq/Dextrose 1,000 ml @ 75 mls/hr [id number] IV Last administered on 10/13/16 06:04; Admin Dose 150 MLS/HR; Start 10/12/16 at 07:00 Norepinephrine 32 mg/Dextrose 250 ml @ 0.46 mls/hr TITRATE IV Last administered on 10/13/16 05:22; Admin Dose 4.68 MLS/HR; Start 10/12/16 at 07:00 Phenylephrine HCl/ Dextrose (Fabrizio-Syneph/D5W) 250 ml @ 18.75 mls/ hr TITRATE IV Last administered on 10/12/16 22:17; Admin Dose 9.37 MLS/HR; Start 10/12/16 at 07:00 Miscellaneous Information 1 ONCE ONCE XX ; Start 10/13/16 at 17:00; Stop at 17:01 Dopamine HCl/ Dextrose 250 ml @ 3.63 mls/hr TITRATE IV Last administered on 07:28; Admin Dose 36.3 MLS/HR; Start 10/12/16 at 13:30 QUINN SINGH NP Oct 13, 2016 12:19
--- NOTE | 2016-10-13 13:07 | QN ---
Documentation Comment Called to the ICU room 105 for CODE BLUE from emergency room. Patient who was maxed on 3 different pressors including levo fed, vasopressin, dopamine had lost pulses and gone into an asystolic rhythm according to the nurse. 1 epinephrine had Miguel been given when I arrived. High quality CPR was continued for several rounds with 2 more epinephrine doses as well as sodium bicarbonate and calcium chloride. During the code I reviewed the patient 's laboratories and saw that her lactic acid was 24 on most recent check. Family was at the bedside. Patient was intubated and had previously been 85% and then more recently 100% after ventilator adjustment. She did regain pulses after several rounds of CPR. Patient's physician is Dr. Johns I recommended to be called for further orders but did recommend a blood gas be performed. I also spoke with family at bedside about the very poor prognosis of the patient both before and after coding in the risk of anoxic brain injury. Also suggested that more fluids be given to the patient to the nursing staff. Patient was mildly tachycardic with bounding pulses when I left the room. YEISON GRANT DO Oct 13, 2016 13:07
[2016-10-13 13:09] LABS: AADO2 Arterial 600.3 mmHg (7.0-24.0); Arterial COHb 0.3 % (0.0-3.0); Arterial Fraction of Oxyhgb 90.1 % (93.0-99.0); Arterial HCO3 11.1 mmol/L (22.0-26.0); Arterial MetHb 0.4 % (0.0-1.5); Arterial Total Hemglobin 12.2 g/dl (12.0-18.0); MODE VENT - AC
--- NOTE | 2016-10-13 14:45 | EN ---
Date/Time of Note Date/Time of Note DATE: 10/13/16 TIME: 14:44 Event Note Medicine Medicine Event Note note; Patient had a cardiac arrest event short while ago CPR was done with revival of vital signs. Patient's family signed a DNR form. Around 2:37 PM today patient had complete loss of vital signs and was pronounced at bedside by myself. Patient was pronounced at at 2:38 PM October 13, 2016. Patient's family is at bedside. PILLO FRY Oct 13, 2016 14:45
--- NOTE | 2016-10-13 15:24 | CONS ---
Date/Time of Note Date/Time of Note DATE: 10/13/16 TIME: 15:23 Assessment/Plan Assessment/Plan Chief Complaint/Hosp Course DIC in septic pt MONITOR ALL HEMATOLOGICAL PARAMETERS AGGRESSIVE BLOOD PRODUCTS SUPPORT ATB PER ID Anemia WITH DROP H/H POST PRBC complex multifactorial cont to monitor blood count closely observe for bleeding and hemolysis transfuse as needed THROMBOCYTOPENIA WORSENED WITH DIC MONITOR CLOSELY POST PLATELET TRANSFUSION s/p Cardiac arrest , CODE Blue 10/11 adn 10/13 prognosis - poor s/p PRBCs + pressors Aspiration PNA during cardiac arrest/CPR 10/12/16 CXR There is a right lower lobe pneumonia. Sepsis on pressors w/(+)SIRS === no fevers, (+)leukocytosis s/p staph bacteremia==> Staph "CoNS" 1/2 bottles, possibly a contaminated sample Cardiomyopathy with low EF HTN HL cad SEVERE Pad s/p peripheral bypass Atherectomy left anterior tibial artery Atherectomy left popliteal artery Atherectomy left superficial femoral artery Angioplasty left anterior tibial artery to by 200 mm balloon and 3 x 200 mm balloon Angioplasty left popliteal artery and superficial femoral artery 6 x 200 mm balloon Left lower extremity third order to angiogram Interpositions version of the atherectomy and angioplasty ESRD on HD Non-healing LE wound s/p R ext illiac sttenting and 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165 ml 2496.055 ml 3084.62 ml Balance 2731.165 ml 2496.055 ml 3084.62 ml Exam ENMT: mucosa pink and moist, nl external ears & nose, nl lips & teeth, nl nasal mucosa & septum Neck: non-tender, supple Respiratory: clear to auscultation, normal air movement Cardiovascular: nl pulses, regular rate and rhythm Drains Both feet are dusky Palpable femoral but no pedal pulses Results Result Diagram: 10/13/16 0500 10/13/16 0500 Results 24 hrs Laboratory Tests Test 10/12/16 18:37 10/12/16 19:09 10/12/16 20:24 10/12/16 21:11 Bedside Glucose 230 H 231 H White Blood Count 30.5 H Red Blood Count 3.50 L Hemoglobin 10.6 #L Hematocrit 32.7 #L Mean Corpuscular Volume 93.4 Mean Corpuscular Hemoglobin 30.3 Mean Corpuscular Hemoglobin Concent 32.4 Red Cell Distribution Width 19.6 H Platelet Count 72 L Mean Platelet Volume 12.5 H Neutrophils % 88.1 H Lymphocytes % 4.8 L Monocytes % 4.4 Eosinophils % 0.0 Basophils % 0.3 Nucleated Red Blood Cells % 7.5 H Neutrophils # 26.9 H Lymphocytes # 1.5 Monocytes # 1.3 H Eosinophils # 0.0 Basophils # 0.1 Nucleated Red Blood Cells # 2.3 H Prothrombin Time 30.8 H Prothrombin Time Ratio 2.4 INR International Normalized Ratio 2.91 Activated Partial Thromboplast Time 47.1 H Sodium Level 138 Potassium Level 4.5 Chloride Level 88 L Carbon Dioxide Level 14 L Anion Gap 41 H Blood Urea Nitrogen 20 Creatinine 2.87 H Glucose Level 314 #H Lactic Acid Level 21.1 *H Calcium Level 7.0 L Total Bilirubin 1.7 H Direct Bilirubin 1.00 H Indirect Bilirubin 0.7 Aspartate Amino Transf (AST/SGOT) 661 H Alanine Aminotransferase (ALT/SGPT) 170 H Alkaline Phosphatase 88 Total Protein 4.9 L Albumin 2.8 L Globulin 2.10 Albumin/Globulin Ratio 1.33 Blood Gas Specimen Source Blood arterial Arterial Blood Date Drawn 10/12/2016 10:14:36 PM Arterial Blood pH (Temp corrected) 7.264 *L Arterial Blood pCO2 (Temp correct) 25.7 L Arterial Blood pO2 (Temp corrected) 123.2 H Arterial Blood HCO3 11.4 L Arterial Blood Base Excess -13.9 L Arterial Blood Oxygen Saturation 97.6 Enmanuel Test ACCEPTAB Arterial Blood Gas Puncture Site Right Radial Arterial Blood Carboxyhemoglobin 0.2 Arterial Blood Methemoglobin 0.3 Blood Gas A-a O2 Differential 564.1 H Oxyhemoglobin Percent 97.1 Total Hemoglobin 13.2 Blood Gas Temperature 37.0 Blood Gas Respiration Rate 14.0 Blood Gas Actual Respiration Rate 28 Blood Gas Modality VENT - AC FiO2 100.0 Blood Gas Tidal Volume 400.0 Blood Gas Low PEEP Setting 5.0 Blood Gas Inspiratory Pressure 21.0 Blood Gas Critical Value Read Back R ZEKE RN Blood Gas Notified Whom Sebastian TAPIA RCP Blood Gas Notified Time 10/12/2016 10:25:52 PM Test 10/12/16 22:50 10/13/16 02:20 10/13/16 05:00 10/13/16 05:13 Platelet Count 57 L 84 L Prothrombin Time 30.7 H 26.1 H Prothrombin Time Ratio 2.4 2.0 INR International Normalized Ratio 2.90 2.36 Activated Partial Thromboplast Time 50.0 H 48.8 H Thrombin Time 18.0 Fibrinogen 206.0 L Plasma Fibrin Degradation Products >10 and <40 H D-Dimer > 38608.00 H Bedside Glucose 240 H White Blood Count 25.0 H Red Blood Count 3.65 L Hemoglobin 10.6 L Hematocrit 33.5 L Mean Corpuscular Volume 91.8 Mean Corpuscular Hemoglobin 29.0 Mean Corpuscular Hemoglobin Concent 31.6 L Red Cell Distribution Width 20.5 H Mean Platelet Volume 11.9 H Neutrophils % Segmented Neutrophils % (Manual) 84 H Band Neutrophils % (Manual) 7 H Lymphocytes % Lymphocytes % (Manual) 8 L Monocytes % Monocytes % (Manual) 1 Eosinophils % Basophils % Nucleated Red Blood Cells % 22 H Neutrophils # Neutrophils # (Manual) 21.4 H Band Neutrophils # 1.7 H Absolute Lymphocytes (Manual) 2.0 Lymphocytes # Monocytes # Absolute Monocytes (Manual) 0.2 L Eosinophils # Basophils # Nucleated Red Blood Cells # Thrombocytosis 2 H Platelet Estimate DECREASED Polychromasia 1+ Poikilocytosis 3+ Anisocytosis 2+ Microcytosis 1+ Macrocytosis 2+ Sodium Level 138 Potassium Level 4.6 Chloride Level 86 L Carbon Dioxide Level 15 L Anion Gap 42 H Blood Urea Nitrogen 21 H Creatinine 2.98 H Glucose Level 252 H Calcium Level 6.8 L Phosphorus Level 6.7 H Magnesium Level 1.9 Lab Scanned Report BLOOD TRANSFUSION Test 10/13/16 06:42 10/13/16 07:46 10/13/16 08:05 10/13/16 12:42 Blood Gas Specimen Source Blood arterial Blood arterial Arterial Blood Date Drawn 10/13/2016 7:10:56 AM 10/13/2016 1:00:56 PM Arterial Blood pH (Temp corrected) 7.285 *L 7.128 *L Arterial Blood pCO2 (Temp correct) 23.4 L 34.3 L Arterial Blood pO2 (Temp corrected) 99.3 H 78.4 L Arterial Blood HCO3 10.9 L 11.1 L Arterial Blood Base Excess -13.9 L -17.0 L Arterial Blood Oxygen Saturation 96.4 90.7 L Enmanuel Test N/A N/A Arterial Blood Gas Puncture Site Right Brachial Right Brachial Arterial Blood Carboxyhemoglobin 0.3 0.3 Arterial Blood Methemoglobin 0.2 0.4 Blood Gas A-a O2 Differential 482.5 H 600.3 H Oxyhemoglobin Percent 95.9 90.1 L Total Hemoglobin 12.5 12.2 Blood Gas Temperature 37.0 37.0 Blood Gas Respiration Rate 14.0 14.0 Blood Gas Actual Respiration Rate 32 26 Blood Gas Modality VENT - AC VENT - AC FiO2 85.0 100.0 Blood Gas Tidal Volume 400.0 400.0 Blood Gas Low PEEP Setting 5.0 5.0 Blood Gas Critical Value Read Back L PETE SULLIVAN L PETE SULLIVAN Blood Gas Notified Whom TM TM Blood Gas Notified Time 10/13/2016 7:18:42 AM 10/13/2016 1:09:40 PM Bedside Glucose 177 Lactic Acid Level 23.6 *H Test 10/13/16 13:06 Bedside Glucose 152 Medications Medications Current Medications Ferrous Sulfate (Ferrous Sulfate (Ec)) 325 mg DAILY PO Last administered on 10/13 09:33; Admin Dose 325 MG; Start 09/27/16 at 09:00 Hydralazine HCl (Apresoline) 10 mg BID PO Last administered on 10/07/16 21:46 ; Admin Dose 10 MG; Start 09/27/16 at 09:00 Metoprolol Succinate (Toprol Xl) 25 mg DAILY PO Last administered on 10/08/16 09:20; Admin Dose 25 MG; Start 09/27/16 at 09:00 Multivit/Ca Carb/ B Cmplx/FA/Prenat (Billie-Roge) 1 tab DAILY PO Last administered on 10/13/16 09:34; Admin Dose 1 TAB; Start 09/27/16 at 09:00 Polyethylene Glycol (Miralax) 17 gm DAILY PO Last administered on 10/13/16 09: 34; Admin Dose 17 GM; Start 09/27/16 at 09:00 Pantoprazole (Protonix Tab) 40 mg DAILY@06 PO Last administered on 10/12/16 06: 36; Admin Dose 40 MG; Start 09/27/16 at 06:00 Zolpidem Tartrate (Ambien) 5 mg HS PRN PO INSOMNIA; Start 09/27/16 at 01:00 Acetaminophen (Tylenol Tab) 650 mg Q6H PRN PO PAIN AND OR ELEVATED TEMP Last administered on 10/13/16 09:51; Admin Dose 650 MG; Start 09/27/16 at 01:00 Ondansetron HCl (Zofran Inj) 4 mg Q6H PRN IV NAUSEA AND/OR VOMITING Last administered on 10/11/16 14:36; Admin Dose 4 MG; Start 09/27/16 at 01:00 IV Flush (NS 10 ml) 3 ml Q8 IV Last administered on 10/13/16 05:13; Admin Dose 3 ML; Start 09/27/16 at 06:00 Diagnostic Test (Pha) (Accu-Chek) 1 ea 02 XX Last administered on 10/02/16 02: 12; Admin Dose 1 EA; Start 09/28/16 at 02:00 Miscellaneous Information 1 ea NOTE XX ; Start 09/27/16 at 07:30 Glucose (Glutose) 15 gm Q15M PRN PO DECREASED GLUCOSE; Start 09/27/16 at 07:30 Glucose (Glutose) 22.5 gm Q15M PRN PO DECREASED GLUCOSE; Start 09/27/16 at 07: 30 Dextrose (D50w Syringe) 25 ml Q15M PRN IV DECREASED GLUCOSE; Start 09/27/16 at 07:30 Dextrose (D50w Syringe) 50 ml Q15M PRN IV DECREASED GLUCOSE; Start 09/27/16 at 07:30 Glucagon (Glucagen) 1 mg Q15M PRN IM DECREASED GLUCOSE; Start 09/27/16 at 07:30 Glucose (Glutose) 15 gm Q15M PRN BUCCAL DECREASED GLUCOSE; Start 09/27/16 at 07 :30 Acetaminophen/ Hydrocodone Bitart ([place] (10/325)) 1.5 tab Q8H PO Last administered on 10/11/16 06:46; Admin Dose 1.5 TAB; Start 09/27/16 at 15:30 Clonidine (Catapres) 0.1 mg Q6H PRN PO SBP>170; Start 09/27/16 at 12:00 Mupirocin (Bactroban) 1 applic BID TOP Last administered on 10/13/16 09:34; Admin Dose 1 APPLIC; Start 09/28/16 at 21:00 Atorvastatin Calcium (Lipitor) 40 mg DAILY@21 PO Last administered on 10/10/16 20:58; Admin Dose 40 MG; Start 09/29/16 at 21:00 Levofloxacin (Levaquin) 250 mg Q48H PO Last administered on 10/12/16 14:26; Admin Dose 250 MG; Start 09/30/16 at 15:00 Aspirin (Aspirin) 81 mg DAILY PO Last administered on 10/11/16 09:20; Admin Dose 81 MG; Start 10/05/16 at 09:00; Status Future Hold Clopidogrel Bisulfate 75 mg 75 mg DAILY PO Last administered on 10/11/16 09:19 ; Admin Dose 75 MG; Start 10/05/16 at 09:00; Status Future Hold Vancomycin HCl (Vancocin) 250 ml @ 125 mls/hr Q96H IVPB Last administered on 17:48; Admin Dose 125 MLS/HR; Start 10/05/16 at 18:00 Morphine Sulfate 2 mg 2 mg Q2H PRN IV PAIN Last administered on 10/10/16 16:33 ; Admin Dose 2 MG; Start 10/09/16 at 14:30 Piperacillin Sod/ Tazobactam Sod 50 ml @ 100 mls/hr Q8 IVPB Last administered on 10/13/16 05:13; Admin Dose 100 MLS/HR; Start 10/11/16 at 22:00 Vasopressin 60 unit/Dextrose 60 ml @ 1.2 mls/hr Q12H IV Last administered on 15:45; Admin Dose 2.4 MLS/HR; Start 10/12/16 at 03:00 Sodium Bicarbonate 150 meq/Dextrose 1,000 ml @ 75 mls/hr [id number] IV Last administered on 10/13/16 06:04; Admin Dose 150 MLS/HR; Start 10/12/16 at 07:00 Norepinephrine 32 mg/Dextrose 250 ml @ 0.46 mls/hr TITRATE IV Last administered on 10/13/16 05:22; Admin Dose 4.68 MLS/HR; Start 10/12/16 at 07:00 Phenylephrine HCl/ Dextrose (Fabrizio-Syneph/D5W) 250 ml @ 18.75 mls/ hr TITRATE IV Last administered on 10/12/16 22:17; Admin Dose 9.37 MLS/HR; Start 10/12/16 at 07:00 Miscellaneous Information 1 ONCE ONCE XX ; Start 10/13/16 at 17:00; Stop at 17:01 Dopamine HCl/ Dextrose 250 ml @ 3.63 mls/hr TITRATE IV Last administered on 13:00; Admin Dose 36.3 MLS/HR; Start 10/12/16 at 13:30 FABY HORN MD Oct 13, 2016 15:24
--- NOTE | 2016-10-17 07:05 | OPR ---
DATE OF OPERATION: PREOPERATIVE DIAGNOSIS: Peripheral vascular disease. POSTOPERATIVE DIAGNOSIS: Peripheral vascular disease. OPERATION PERFORMED: 1. Angioplasty, right femoral-popliteal bypass grafting using a 2 x 200, 3 x 200 and 4 x 200 mm balloon. 2. Right tibial bypass angioplasty, 2 x 200 mm balloon. 3. Right lower extremity angiogram. 4. insertion of angioplasty with angiogram. 5. Ultrasound guidance into the central vein. SURGEON: Dr. Bianchi. ANESTHESIA: Local plus IV sedation. Risks, benefits, complications, alternatives were explained to the patient and her family, consent obtained. OPERATIVE PROCEDURE: All precautions were taken. Patient was placed in supine position, prepped and draped in usual sterile fashion. Ultrasound guidance was used to gain access into the left common femoral artery. A 0.35 Bentson wire was advanced, rim catheter advanced, and the wire was passed from left to right. A 5-Taiwanese sheath was exchanged for a long 6 sheath, which was placed all the way down to the right common femoral artery. Angiogram was done which confirmed the previous findings, which was subtotal occlusion of the distal insertion of the femoral artery and popliteal artery. However, a stained appearance of the left femoral-pedal bypass graft using a vein was identified. Patient was given 5000 units of IV heparin. Guidewire was advanced through the vein graft all the way down into the pedal vessel, which the saphenous vein graft and the pedal vein were angioplastied using a 2 x 200, next 3 x 200 and next 4 x 200 mm balloon, which was only used for the vein. The final angiogram revealed a completely patent saphenous vein graft from the femoral artery down to the pedal artery with brisk flow. It appeared to be a peroneal vessel that had been bypassed. The sheath was then exchanged for a short sheath. All hardware was removed. Patient transported to [facility] in stable condition. Dictated By: Leonard Bianchi MD /[email or web address] /Document#: [id number]
== END 2016-10-13 21:06 | disposition expired | DRG 270 ==
LOC: PP2 16:53 → MS2 23:00 → ICU 10-03 16:47 → TEL 10-04 22:30 → ICU 10-11 21:27
PROVIDERS: ADMIT Internal Medicine; ATTEND Internal Medicine
PROC: 5A1D60Z (ICD-10-PCS; 2016-09-26)
PROC: 047C3DZ Dilation of Right Common Iliac Artery with Intraluminal Device, Percutaneous Approach (ICD-10-PCS; 2016-09-29)
PROC: 04CQ3ZZ Extirpation of Matter from Left Anterior Tibial Artery, Percutaneous Approach (ICD-10-PCS; 2016-10-10)
PROC: 047M3ZZ Dilation of Right Popliteal Artery, Percutaneous Approach (ICD-10-PCS; 2016-10-10)
PROC: 04CN3ZZ Extirpation of Matter from Left Popliteal Artery, Percutaneous Approach (ICD-10-PCS; 2016-10-10)
PROC: 04CL3ZZ Extirpation of Matter from Left Femoral Artery, Percutaneous Approach (ICD-10-PCS; 2016-10-10)
PROC: 047Q3ZZ Dilation of Left Anterior Tibial Artery, Percutaneous Approach (ICD-10-PCS; 2016-10-10)
PROC: 047N3ZZ Dilation of Left Popliteal Artery, Percutaneous Approach (ICD-10-PCS; 2016-10-10)
PROC: 047L3ZZ Dilation of Left Femoral Artery, Percutaneous Approach (ICD-10-PCS; 2016-10-10)
PROC: 047K3ZZ Dilation of Right Femoral Artery, Percutaneous Approach (ICD-10-PCS; principal; 2016-10-10 15:30)
PROC: 0BH17EZ Insertion of Endotracheal Airway into Trachea, Via Natural or Artificial Opening (ICD-10-PCS; 2016-10-11)
PROC: 5A1945Z Respiratory Ventilation, 24-96 Consecutive Hours (ICD-10-PCS; 2016-10-11)
PROC: 3E053PZ Introduction of Platelet Inhibitor into Peripheral Artery, Percutaneous Approach (ICD-10-PCS; 2016-10-12)
PROC: 30233N1 Transfusion of Nonautologous Red Blood Cells into Peripheral Vein, Percutaneous Approach (ICD-10-PCS; 2016-10-12)
PROC: 30233R1 Transfusion of Nonautologous Platelets into Peripheral Vein, Percutaneous Approach (ICD-10-PCS; 2016-10-12)
PROC: 30233K1 Transfusion of Nonautologous Frozen Plasma into Peripheral Vein, Percutaneous Approach (ICD-10-PCS; 2016-10-12)
DX: E11.52 Type 2 diabetes mellitus with diabetic peripheral angiopathy with gangrene (principal); N18.6 End stage renal disease; J96.90 Respiratory failure, unspecified, unspecified whether with hypoxia or hypercapnia; J69.0 Pneumonitis due to inhalation of food and vomit; D65 Disseminated intravascular coagulation [defibrination syndrome]; A41.9 Sepsis, unspecified organism; G92 Toxic encephalopathy; R57.9 Shock, unspecified; R65.21 Severe sepsis with septic shock; I12.0 Hypertensive chronic kidney disease with stage 5 chronic kidney disease or end stage renal disease; I42.9 Cardiomyopathy, unspecified; E87.1 Hypo-osmolality and hyponatremia; E11.621 Type 2 diabetes mellitus with foot ulcer; D69.6 Thrombocytopenia, unspecified; L97.519 Non-pressure chronic ulcer of other part of right foot with unspecified severity; D63.1 Anemia in chronic kidney disease; I25.10 Atherosclerotic heart disease of native coronary artery without angina pectoris; E03.9 Hypothyroidism, unspecified; I73.9 Peripheral vascular disease, unspecified; I77.1 Stricture of artery; Z95.820 Peripheral vascular angioplasty status with implants and grafts; Z95.1 Presence of aortocoronary bypass graft; Z22.322 Carrier or suspected carrier of Methicillin resistant Staphylococcus aureus; D64.9 Anemia, unspecified; I25.2 Old myocardial infarction; Z95.0 Presence of cardiac pacemaker; I46.9 Cardiac arrest, cause unspecified
CPT/HCPCS: 31500; 36430; 36600; 36903; 71010; 75630; 80048; 80053; 80061; 80202; 82550; 82553; 82803; 82962; 83036; 83605; 83735; 84100; 84132; 84439; 84443; 84484; 85014; 85018; 85025; 85049; 85362; 85378; 85384; 85610; 85670; 85730; 86644; 86850; 86900; 86901; 86902; 86920; 87040; 87081; 90935; 92950; 93005; 94002; 94003; 94770; C1714; C1725; C1760; C1769; C1875; C1887; C1894; G0463; J1265; J1644; J1815; J2001; J2250; J2270; J2370; J2405; J2543; J3010; J3370; J3480; J7030; J7040; J7042; J7060; J7070; P9016; P9035; P9047; P9059; Q4081; Q9967